=== PATIENT | male | born 1955 | race Caucasian/White ===

== ENCOUNTER 2017-07-21 15:36 | Emergency (ER) | payer OTHER ==
[~2017-07-21] VITALS: Ht 182.9 cm; Wt 95.3 kg
[~2017-07-21 15:36] MED LIST: ACC10 PO; AMLO-110 PO; DVN80 PO; FLX10 PO; GLC5 PO; GLC500 PO; METO100T44 PO; OXYC-57 PO; SIMV20TA5 OR; SITA100T3 PO
[2017-07-21 15:44] VITALS: TEMP 36.7; Ht 182.9 cm; Wt 95.3 kg
--- NOTE | 2017-07-21 16:09 | EMERGENCY ROOM VISIT NOTE ---
History Report prepared by Mellissa: Kay Hagen Under the Supervision of: Jw AminO. First contact with patient: 15:50 Chief Complaint: HEAD PAIN Stated Complaint: PAIN ON RT SIDE OF HEAD, LT EYE BLOOD SHOT History of Present Illness The patient is a 62 year old male who presents to the Emergency Room with complaints of intermittent head throbbing beginning 7 weeks ago. The patient states that he has no history of headaches but 7 weeks ago he woke up feeling pain in his neck behind his ear that radiates into his head. He complains of his left eye being intermittently blood shot. He notes that his head and neck pain is worsened occasionally by turning his head. The patient reports that he has a history of diabetes, hypertension, aortic aneurysm for 6 years, and leg stents. He notes that he has not seen a doctor for his pain. The patient denies any nausea, vomiting, chest pain, new shortness of breath, arm weakness, leg weakness, fever, and chills. Source of History: patient Onset: 7 weeks ago Position: head Quality: other (throbbing) Timing: intermittent Associated Symptoms: + neck pain, No fevers, No chills, No chest pain, No SOB, No nausea, No vomiting, No weakness Note: Pt complains of a bloodshot left eye. Review of Systems See HPI for pertinent positives & negatives. A total of 10 systems reviewed and were otherwise negative. Past Medical & Surgical Medical Problems: (1) Diabetes (2) HTN (hypertension) Family History No pertinent family history stated. Social History Smoking Status: Never Smoker Smokeless Tobacco Use: No Alcohol Use: none Marital Status: Housing Status: lives with family Current/Historical Medications Scheduled Amlodipine (Norvasc), 10 MG PO DAILY Aspirin (Aspirin Ec), 81 MG PO DAILY Atorvastatin (Lipitor), 40 MG PO DAILY Carvedilol (Coreg), 37.5 MG PO AMPM Cholecalciferol (Vitamin D), 4,000 UNITS PO DAILY Clopidogrel Bisulfate (Plavix), 75 MG PO DAILY Furosemide (Lasix), 20 MG PO BID Hydralazine HCl (Hydralazine HCl), 50 MG PO TID Insulin Glargine (Lantus Solostar), 34 UNITS SC Q12 Spironolactone (Aldactone), 12.5 MG PO DAILY Terazosin Hcl (Hytrin), 4 MG PO HS Scheduled PRN Oxycodone Immediate Rel Tab (Roxicodone Ir), 1-2 TAB PO Q4H PRN for Severe Pain Allergies Coded Allergies: No Known Allergies (Unverified , 07/21/17) Physical Exam Vital Signs Date Time Temp Pulse Resp B/P (MAP) Pulse Ox O2 Delivery O2 Flow Rate FiO2 07/21/17 19:19 70 16 173/96 98 Room Air 07/21/17 18:43 69 18 163/82 99 Room Air 07/21/17 18:01 72 20 182/81 99 Room Air 07/21/17 17:42 72 18 182/94 99 Room Air 07/21/17 17:10 94 20 134/91 98 Room Air 07/21/17 16:34 67 18 164/88 96 Room Air 07/21/17 16:15 96 Room Air 07/21/17 16:14 66 20 177/89 96 Room Air 07/21/17 16:10 96 Room Air 07/21/17 15:44 36.7 71 20 175/81 98 Room Air Physical Exam GENERAL: Patient is awake, alert, and in no acute distress. Patient is resting comfortably and showing no signs of anxiety EYES: There was a subconjunctival hemorrhage in the medial aspect of the left eye. EARS, NOSE, MOUTH AND THROAT: The nose is without any evidence of any deformity. Mucous membranes are moist tongue is midline NECK: The neck is nontender and supple. RESPIRATORY: Normal respiratory effort is noted there is no evidence of wheezing rhonchi or rales CARDIOVASCULAR: Regular rate and rhythm noted there no murmurs rubs or gallops normal S1 normal S2 GASTROINTESTINAL: The abdomen is soft. Bowel sounds are present in all quadrants. Abdomen is nontender MUSCULOSKELETAL/EXTREMITIES: There is no evidence of gross deformity full range of motion is noted in the hips and shoulders SKIN: There is no obvious evidence of any rash. There are no petechiae, pallor or cyanosis noted. NEUROLOGIC: Patient is awake alert and oriented x3 strength is symmetric patellar reflexes are 2+ bilaterally Medical Decision & Procedures ER Provider Diagnostic Interpretation: Radiology results as stated below per my review and radiologist interpretation: ANGIOGRAPHY HEAD COMBO FINDINGS: The CTA of the neck will be reported separately. No acute intracranial hemorrhage, midline shift or mass effect is present. Ventricular system is normal. Basilar cisterns are patent. There are no extra-axial collections. Pompa-white differentiation is maintained. There are no findings to suggest acute dural sinus thrombosis or acute territorial infarct. There are no significant calvarial abnormalities. Visualized portions of the sinuses and mastoid air cells are clear. Bilateral M1, M2, A1 and A2 segments are patent. There is moderate atherosclerotic plaque within the bilateral cavernous and supraclinoid internal carotid arteries. There is moderate stenosis of the left cavernous and supraclinoid ICA. There is mild stenosis of the right cavernous carotid. There is no intracranial aneurysm or abrupt vessel cut off. There is no dissection within the major vasculature of the head. There is moderate stenosis of the intracranial portions of the bilateral vertebral arteries. The basilar artery is patent. Left vertebral artery is dominant. Bilateral posterior cerebral arteries are patent. Note is made of anterior communicating artery and a right posterior communicating artery. IMPRESSION: 1. No acute intracranial findings. 2. No intracranial aneurysm or abrupt vessel cut off. 3. Moderate atherosclerotic plaque within the intracranial vessels with multifocal stenoses, as detailed above. Moderate stenoses of the intracranial portions of the bilateral vertebral arteries and the cavernous and supraclinoid portions of the left internal carotid artery. Electronically signed by: Jamil Reyes M.D. 07/21/2017 5:55 PM Dictated Date/Time: 07/21/2017 5:46 PM CHEST ONE VIEW PORTABLE FINDINGS: Lung volumes are normal. No consolidation is identified and there is no evidence of pulmonary edema. Linear left basilar opacity is suggestive of atelectasis. Borderline cardiomegaly is noted. No pneumothorax or pleural effusion is present. IMPRESSION: 1. No acute cardiopulmonary findings. 2. Borderline cardiomegaly without evidence of pulmonary edema. Electronically signed by: Jamil Reyes M.D. 07/21/2017 4:32 PM Dictated Date/Time: 07/21/2017 4:[address] ANGIOGRAPHY OF THE NECK WITH CONTRAST Findings: The origins of the bilateral common carotid arteries are patent. There is moderate plaque within the proximal bilateral internal carotid arteries without significant stenosis. There is no dissection within the major vasculature of the neck. The left vertebral artery is dominant and patent. There is moderate stenosis at the origin the right vertebral artery and mild to moderate stenosis at the origin of the left vertebral artery. There is no cervical lymphadenopathy. No cervical spine fractures identified. Epiglottis is normal. A few small thyroid nodules are noted. IMPRESSION: 1. No dissection within the neck. 2. Moderate plaque within the proximal bilateral internal carotid arteries without significant stenosis. 3. Moderate stenosis at the origin of the right vertebral artery and mild to moderate stenosis at the origin of the left vertebral artery. Electronically signed by: Jamil Reyes M.D. 07/21/2017 6:00 PM Dictated Date/Time: 07/21/2017 5:56 PM Laboratory Results 07/21/17 16:13 Red Blood Count 3.87, Mean Corpuscular Volume 85.3, Mean Corpuscular Hemoglobin 30.0, Mean Corpuscular Hemoglobin Concent 35.2, Mean Platelet Volume 9.5, Neutrophils (%) (Auto) 54.8, Lymphocytes (%) (Auto) 30.9, Monocytes (%) (Auto) 11.4, Eosinophils (%) (Auto) 2.1, Basophils (%) (Auto) 0.5, Neutrophils # (Auto ) 3.31, Lymphocytes # (Auto) 1.87, Monocytes # (Auto) 0.69, Eosinophils # (Auto ) 0.13, Basophils # (Auto) 0.03 07/21/17 16:13 Test 07/21/17 16:13 07/21/17 16:20 07/21/17 18:40 White Blood Count 6.05 K/uL (4.8-10.8) Red Blood Count 3.87 M/uL (4.7-6.1) Hemoglobin 11.6 g/dL (14.0-18.0) Hematocrit 33.0 % (42-52) Mean Corpuscular Volume 85.3 fL (80-100) Mean Corpuscular Hemoglobin 30.0 pg (25-34) Mean Corpuscular Hemoglobin Concent 35.2 g/dl (32-36) Platelet Count 192 K/uL (130-400) Mean Platelet Volume 9.5 fL (7.4-10.4) Neutrophils (%) (Auto) 54.8 % Lymphocytes (%) (Auto) 30.9 % Monocytes (%) (Auto) 11.4 % Eosinophils (%) (Auto) 2.1 % Basophils (%) (Auto) 0.5 % Neutrophils # (Auto) 3.31 K/uL (1.4-6.5) Lymphocytes # (Auto) 1.87 K/uL (1.2-3.4) Monocytes # (Auto) 0.69 K/uL (0.11-0.59) Eosinophils # (Auto) 0.13 K/uL (0-0.5) Basophils # (Auto) 0.03 K/uL (0-0.2) RDW Standard Deviation 41.7 fL (36.4-46.3) RDW Coefficient of Variation 13.6 % (11.5-14.5) Immature Granulocyte % (Auto) 0.3 % Immature Granulocyte # (Auto) 0.02 K/uL (0.00-0.02) Prothrombin Time 10.6 SECONDS (9.0-12.0) Prothromb Time International Ratio 1.0 (0.9-1.1) Activated Partial Thromboplast Time 24.7 SECONDS (21.0-31.0) Partial Thromboplastin Ratio 1.0 Est Creatinine Clear Calc Drug Dose 45.5 ml/min Estimated GFR () 39.2 Estimated GFR (Non- 33.8 BUN/Creatinine Ratio 14.5 (10-20) Calcium Level 8.8 mg/dl (8.5-10.1) Magnesium Level 2.0 mg/dl (1.8-2.4) Total Bilirubin 0.8 mg/dl (0.2-1) Direct Bilirubin 0.2 mg/dl (0-0.2) Aspartate Amino Transf (AST/SGOT) 18 U/L (15-37) Alanine Aminotransferase (ALT/SGPT) 39 U/L (12-78) Alkaline Phosphatase 136 U/L (45-117) Troponin I < 0.015 ng/ml (0-0.045) Total Protein 8.3 gm/dl (6.4-8.2) Albumin 3.9 gm/dl (3.4-5.0) Thyroid Stimulating Hormone (TSH) 1.460 uIu/ml (0.300-4.500) Bedside Hemoglobin 10.9 g/dl (14.0-18.0) Bedside Hematocrit 32 % (42-52) Bedside Sodium 139 mEq/L (135-144) Bedside Potassium 4.4 mEq/L (3.3-5.0) Bedside Chloride 105 mEq/L (101-112) Bedside Total CO2 23 mEq/l (24-31) Anion Gap 16.0 mmol/L (16-25) Bedside Blood Urea Nitrogen 29 mg/dl (7-18) Bedside Creatinine 2.3 mg/dl (0.6-1.3) Bedside Glucose (other) 157 mg/dl (70-99) Bedside Ionized Calcium (Andrés) 1.19 mmol/l (1.12-1.32) Urine Color YELLOW Urine Appearance CLEAR (CLEAR) Urine pH 6.5 (4.5-7.5) Urine Specific [place] 1.018 (1.000-1.030) Urine Protein NEG (NEG) Urine Glucose (UA) NEG (NEG) Urine Ketones NEG (NEG) Urine Occult Blood NEG (NEG) Urine Nitrite NEG (NEG) Urine Bilirubin NEG (NEG) Urine Urobilinogen NEG (NEG) Urine Leukocyte Esterase MODERATE (NEG) Urine WBC (Auto) 10-30 /hpf (0-5) Urine RBC (Auto) 0-4 /hpf (0-4) Urine Hyaline Casts (Auto) 0 /lpf (0-5) Urine Epithelial Cells (Auto) 10-20 /lpf (0-5) Urine Bacteria (Auto) NEG (NEG) Laboratory results per my review. Medications Administered Medications (Trade) Dose Ordered Sig/Domenic Route Start Time Stop Time Status Last Admin Dose Admin Sodium Chloride 500 ml @ 999 mls/hr Q31M STAT IV 07/21/17 17:06 07/21/17 17:36 DC 07/21/17 17:06 999 MLS/HR Diphenhydramine HCl (Benadryl Inj) 25 mg NOW STAT IV 07/21/17 17:44 07/21/17 17:45 DC 07/21/17 17:47 25 MG Methylprednisolone Sodium Succinate (Solu-Medrol IV) 125 mg STK-MED ONCE .ROUTE 07/21/17 17:56 07/21/17 17:57 DC 07/21/17 17:59 125 MG ECG Indication: SOB/dyspnea Rate (beats per minute): 67 Rhythm: normal sinus Findings: no ectopy, other (no acute ST segments) Comparison ECG Date: no prior available ED Course 1550: The patient was evaluated in room C3. A complete history and physical examination were performed. 1706: NSS 500 ml @ 999 mls/hr IV. 1744: Benadryl 50mg, Benadryl 25mg IV. 1756: Solu-Medrol 125mg. 1919: I reevaluated the patient. His intraocular pressure in the left eye was 18 and the right eye was 13. He has an appointment with his doctor tomorrow. 1929: Upon reevaluation, the patient is doing well. I discussed the results and treatment plan with him. He verbalized agreement of the treatment plan. The patient was discharged home. Medical Decision Differential diagnosis: Etiologies such as migraine headache, meningitis, sinusitis, CO exposure, ICH, SAH, infection, tumor, headache, sinus thrombosis, arterial dissection, as well as others were entertained. Nursing notes reviewed. The patient is a 62-year-old male who presented to the emergency department for an evaluation of headache. The patient has been noticing episodes of headache which is been intermittent but very frequent over the last few weeks. He has noticed some pain in his left eye as well as redness in his left eye. He was found have a subconjunctival hemorrhage on the left eye but no focal neurologic deficit fever or meningismus. I discussed the patient's laboratory and radiographic studies with him. His intraocular pressure was not significantly elevated in the affected eye. The CT angiography of the head and neck did not show any acute disease but showed some vascular disease which I discussed with the patient. The patient was treated with IV fluids and Benadryl and steroids in the emergency department. On subsequent reevaluation he was feeling somewhat improved. I discussed my thoughts with the patient which included that this could represent a cluster type headache. He was encouraged to rest and avoid any strenuous activity. He was also encouraged to continue all medications as prescribed and call his family doctor in the morning to schedule a follow-up appointment. Otherwise he was encouraged to return to the emergency department immediately if symptoms change worsen or the need arises. Medication Reconcilliation Current Medication List: was personally reviewed by me Blood Pressure Screening Patient's blood pressure: Elevated blood pressure Blood pressure disposition: Referred to PCP Impression Primary Impression: Headache Additional Impression: Non-traumatic subconjunctival hemorrhage of left eye Scribe Attestation The scribe's documentation has been prepared under my direction and personally reviewed by me in its entirety. I confirm that the note above accurately reflects all work, treatment, procedures, and medical decision making performed by me. Departure Information Dispostion Home / Self-Care Prescriptions Oxycodone Immediate Rel Tab (ROXICODONE IR) 5 Mg Tab 1-2 TAB PO Q4H Y for Severe Pain, #24 TAB Prov: Deric Tovar, DO 07/21/17 Referrals Chele Cullen M.D. (PCP) Forms HOME CARE DOCUMENTATION FORM, IMPORTANT VISIT INFORMATION, WORK / SCHOOL INSTRUCTIONS Patient Instructions ED Headache Cluster, My [facility], Subconjunctival Hemorrhage Additional Instructions Follow-up with your doctor this week as scheduled. Rest and avoid any strenuous activity. Continue all medications as discussed the possibility with your family DrKarlene to be require other studies or a referral to a neurologist for further evaluation. Return to the emergency department immediately if symptoms change worsen or need arises. Problem Qualifiers Primary Impression: Headache Headache type: unspecified Headache chronicity pattern: unspecified pattern Intractability: not intractable Qualified Codes: R51 - Headache
[2017-07-21 16:15] VITALS: O2SAT 96
[2017-07-21 16:32] LABS: ISTAT CREATININE 2.3 mg/dl (0.6-1.3); ISTAT HEMOGLOBIN 10.9 g/dl (14.0-18.0); ISTAT IONIZED CALCIUM 1.19 mmol/l (1.12-1.32)
[2017-07-21 16:33] LABS: BASO % 0.5 %; BASO ABS # 0.03 K/uL (0-0.2); COMPLETE YES; EOS % 2.1 %; IG% 0.3 %; LYMPH % 30.9 %; LYMPH ABS # 1.87 K/uL (1.2-3.4); MEAN CELL VOLUME 85.3 fL (80-100); MEAN CORPUSCULAR HGB CONC 35.2 g/dl (32-36); MEAN PLATELET VOLUME 9.5 fL (7.4-10.4); MONO % 11.4 %; NEUT % 54.8 %; PLATELET COUNT 192 K/uL (130-400); RED BLOOD COUNT 3.87 M/uL (4.7-6.1); WHITE BLOOD COUNT 6.05 K/uL (4.8-10.8)
--- NOTE | 2017-07-21 16:33 | DIAGNOSTIC IMAGING REPORT ---
CHEST ONE VIEW PORTABLE CLINICAL HISTORY: Altered mental status. Weakness. COMPARISON STUDY: No previous studies for comparison. FINDINGS: Lung volumes are normal. No consolidation is identified and there is no evidence of pulmonary edema. Linear left basilar opacity is suggestive of atelectasis. Borderline cardiomegaly is noted. No pneumothorax or pleural effusion is present. IMPRESSION: 1. No acute cardiopulmonary findings. 2. Borderline cardiomegaly without evidence of pulmonary edema. Electronically signed by: Jamil Reyes M.D. 07/21/2017 4:32 PM Dictated Date/Time: 07/21/2017 4:31 PM
[2017-07-21 16:46] LABS: PROTHROMBIN TIME (PATIENT) 10.6 SECONDS (9.0-12.0)
[2017-07-21 16:53] LABS: ALT/SGPT 39 U/L (12-78); AST/SGOT 18 U/L (15-37); BLOOD UREA NITROGEN 30 mg/dl (7-18); BUN/CREATININE RATIO 14.5 (10-20); CALCIUM 8.8 mg/dl (8.5-10.1); CARBON DIOXIDE 22 mmol/L (21-32); CHLORIDE 106 mmol/L (98-107); CREATININE 2.07 mg/dl (0.60-1.40); GLUCOSE 149 mg/dl (70-99); POTASSIUM 4.2 mmol/L (3.5-5.1); SODIUM 134 mmol/L (136-145)
[2017-07-21 17:04] LABS: ALKALINE PHOSPHATASE 136 U/L (45-117)
[2017-07-21] MEDS ORDERED: SPIR25TA PO (17:06)
[2017-07-21] MEDS ORDERED: APR50 PO (17:06)
[2017-07-21] MEDS ORDERED: ASPI81TA28 PO (17:06)
[2017-07-21] MEDS ORDERED: FRS/40 PO (17:06)
[2017-07-21] MEDS ORDERED: HYT/2 PO (17:06)
[2017-07-21] MEDS ORDERED: AMLO-114 PO (17:06)
[2017-07-21] MEDS ORDERED: CLOP1TAB54 PO (17:06)
[2017-07-21] MEDS ORDERED: SODIUM CHLORIDE 0.9% 500ML 500 ML IV STA (17:06)
[2017-07-21] MEDS ORDERED: CARV25TA2 PO (17:06)
[2017-07-21] MEDS ORDERED: INSDGIPEN SC (17:06)
[2017-07-21] MEDS ORDERED: ATOR-24 PO (17:06)
[2017-07-21] MEDS ORDERED: CHOL100010 PO (17:06)
[2017-07-21] MEDS ORDERED: DiphenhydrAMINE HCL 50 MG/ML VIAL IV STA (17:44)
[2017-07-21] MEDS ORDERED: DiphenhydrAMINE HCL 50 MG/ML VIAL ONE (17:44)
[2017-07-21] MEDS ORDERED: METHYLPREDNISOLONE 125 MG VIAL ONE (17:56)
--- NOTE | 2017-07-21 17:56 | DIAGNOSTIC IMAGING REPORT ---
ANGIOGRAPHY HEAD COMBO CLINICAL HISTORY: Right sided headache. COMPARISON STUDY: No previous studies for comparison. TECHNIQUE: Unenhanced and arterial phase imaging of the head was performed. Injection of 115 cc of Optiray 320 IV was uneventful. Coronal and sagittal reconstructions were viewed as well as maximal intensity projections on an independent 3-D workstation. FINDINGS: The CTA of the neck will be reported separately. No acute intracranial hemorrhage, midline shift or mass effect is present. Ventricular system is normal. Basilar cisterns are patent. There are no extra-axial collections. Pompa-white differentiation is maintained. There are no findings to suggest acute dural sinus thrombosis or acute territorial infarct. There are no significant calvarial abnormalities. Visualized portions of the sinuses and mastoid air cells are clear. Bilateral M1, M2, A1 and A2 segments are patent. There is moderate atherosclerotic plaque within the bilateral cavernous and supraclinoid internal carotid arteries. There is moderate stenosis of the left cavernous and supraclinoid ICA. There is mild stenosis of the right cavernous carotid. There is no intracranial aneurysm or abrupt vessel cut off. There is no dissection within the major vasculature of the head. There is moderate stenosis of the intracranial portions of the bilateral vertebral arteries. The basilar artery is patent. Left vertebral artery is dominant. Bilateral posterior cerebral arteries are patent. Note is made of anterior communicating artery and a right posterior communicating artery. IMPRESSION: 1. No acute intracranial findings. 2. No intracranial aneurysm or abrupt vessel cut off. 3. Moderate atherosclerotic plaque within the intracranial vessels with multifocal stenoses, as detailed above. Moderate stenoses of the intracranial portions of the bilateral vertebral arteries and the cavernous and supraclinoid portions of the left internal carotid artery. Electronically signed by: Jamil Reyes M.D. 07/21/2017 5:55 PM Dictated Date/Time: 07/21/2017 5:46 PM
--- NOTE | 2017-07-21 18:02 | DIAGNOSTIC IMAGING REPORT ---
CT ANGIOGRAPHY OF THE NECK WITH CONTRAST CLINICAL HISTORY: Right-sided neck pain. Headache. COMPARISON STUDY: No previous studies for comparison. Technique: CT angiography of the carotid and vertebral arteries was obtained using Fonality 320 IV and 3D reconstruction on an independent workstation. NASCET criteria was utilized. A dose lowering technique was utilized adhering to the principles of ALARA. CT DOSE: 1098.14 mGy.cm Findings: The origins of the bilateral common carotid arteries are patent. There is moderate plaque within the proximal bilateral internal carotid arteries without significant stenosis. There is no dissection within the major vasculature of the neck. The left vertebral artery is dominant and patent. There is moderate stenosis at the origin the right vertebral artery and mild to moderate stenosis at the origin of the left vertebral artery. There is no cervical lymphadenopathy. No cervical spine fractures identified. Epiglottis is normal. A few small thyroid nodules are noted. IMPRESSION: 1. No dissection within the neck. 2. Moderate plaque within the proximal bilateral internal carotid arteries without significant stenosis. 3. Moderate stenosis at the origin of the right vertebral artery and mild to moderate stenosis at the origin of the left vertebral artery. Electronically signed by: Jamil Reyes M.D. 07/21/2017 6:00 PM Dictated Date/Time: 07/21/2017 5:56 PM
[2017-07-21 19:08] LABS: URINE APPEARANCE CLEAR (CLEAR); URINE BILIRUBIN NEG (NEG); URINE COLOR YELLOW; URINE NITRITE NEG (NEG); URINE PH 6.5 (4.5-7.5); URINE SPECIFIC GRAVITY 1.018 (1.000-1.030); UROBILINOGEN NEG (NEG)
[2017-07-21 19:15] LABS: MANUAL MICROSCOPIC REQUIRED? NO; REVIEW REQ? NO
[2017-07-21 19:19] VITALS: BP 173/96; PULSE 70; O2SAT 98
[2017-07-21] MEDS ORDERED: OXYC1TAB3 PO (19:23)
== END 2017-07-21 19:30 | disposition home or self-care (01) ==
LOC: C.EDB 15:37 → C.EDC 19:30
DX: R51 Headache (principal); H11.32 Conjunctival hemorrhage, left eye; M54.2 Cervicalgia; E11.9 Type 2 diabetes mellitus without complications; I10 Essential (primary) hypertension; I71.9 Aortic aneurysm of unspecified site, without rupture; Z79.82 Long term (current) use of aspirin; Z79.02 Long term (current) use of antithrombotics/antiplatelets; Z79.4 Long term (current) use of insulin; Z95.828 Presence of other vascular implants and grafts

== ENCOUNTER 2017-08-14 05:14 | Inpatient (IN) | payer OTHER ==
[~2017-08-14] VITALS: Ht 182.9 cm; Wt 94.5 kg
[~2017-08-14 05:14] MED LIST changes: -ACC10 PO; -AMLO-110 PO; +AMLO-114 PO; +APR50 PO; +ASPI81TA28 PO; +ATOR-24 PO; +CARV25TA2 PO; +CHOL100010 PO; +CLOP1TAB54 PO; -DVN80 PO; -FLX10 PO; +FRS/40 PO; -GLC5 PO; -GLC500 PO; +HYT/2 PO; +INSDGIPEN SC; -METO100T44 PO; -OXYC-57 PO; +OXYC1TAB3 PO; -SIMV20TA5 OR; -SITA100T3 PO; +SPIR25TA PO
[2017-08-14] MEDS ORDERED: FENTANYL CITRATE INJ 50 MCG/1 ML 2 ML VIAL IV STA (05:17)
[2017-08-14] MEDS ORDERED: SODIUM CHLORIDE 0.9% 1000ML 1,000 ML IV STA ×2 (05:17→05:31)
[2017-08-14] MEDS ORDERED: METHYLPREDNISOLONE 125 MG VIAL IV STA (05:27)
[2017-08-14] MEDS ORDERED: DiphenhydrAMINE HCL 50 MG/ML VIAL IV STA (05:27)
[2017-08-14 05:28] LABS: HEMATOCRIT 33.7 % (42-52); HEMOGLOBIN 11.8 g/dL (14.0-18.0); MEAN CELL VOLUME 85.5 fL (80-100); MEAN CORPUSCULAR HEMOGLOBIN 29.9 pg (25-34); MEAN PLATELET VOLUME 9.6 fL (7.4-10.4); PLATELET COUNT 208 K/uL (130-400); RED CELL DISTRIBUTION WIDTH CV 13.5 % (11.5-14.5); RED CELL DISTRIBUTION WIDTH SD 42.5 fL (36.4-46.3); WHITE BLOOD COUNT 13.47 K/uL (4.8-10.8)
[2017-08-14] MEDS ORDERED: OPTIRAY 320 IV PRN (05:30)
--- NOTE | 2017-08-14 05:32 | EMERGENCY ROOM VISIT NOTE ---
History First contact with patient: 05:17 Chief Complaint: CHEST PAIN Stated Complaint: CHEST PAIN Nursing Triage Summary: Patient reports he woke up approx 0200 with severe chest pain, upper back pain, mainly on the right. Patient has aortic aneurysm that was last checked approx 1 yr ago, due to have it checked in October. Patient reports pain is getting worse. History of Present Illness The patient is a 62 year old male who presents to the Emergency Room for evaluation of right chest pain. Notes he has had URI last day or so and his having similar. Taking no meds for it and otherwise no recent complaints. This morning awoke suddenly with severe tearing right chest pain. Radiation to shoulder and RUQ. Associated with shob. He has never had pain like this before. Nothing makes better nor worse. Known thoracic aneurysm which he follows as outpatient for regularly. Denies neck pain, syncope, nausea, vomiting, nor other symptoms. Given IV Fentanyl [facility] with mild improvement. Denies recent change in mediations. Takes no pain medications on a regular basis. No recent trauma/injuries. Is on plavix/asa due to arterial stenting in legs. Review of Systems See HPI for pertinent positives & negatives. A total of 10 systems reviewed and were otherwise negative. Past Medical/Surgical History Medical Problems: (1) Diabetes (2) HTN (hypertension) Social History Smoking Status: Never Smoker Alcohol Use: none Marital Status: Housing Status: lives with family Current/Historical Medications Scheduled Amlodipine (Norvasc), 10 MG PO DAILY Aspirin (Aspirin Ec), 81 MG PO DAILY Atorvastatin (Lipitor), 40 MG PO DAILY Carvedilol (Coreg), 37.5 MG PO AMPM Cholecalciferol (Vitamin D), 4,000 UNITS PO DAILY Clopidogrel Bisulfate (Plavix), 75 MG PO DAILY Furosemide (Lasix), 20 MG PO BID Hydralazine HCl (Hydralazine HCl), 50 MG PO TID Insulin Glargine (Lantus Solostar), 34 UNITS SC Q12 Spironolactone (Aldactone), 12.5 MG PO DAILY Terazosin Hcl (Hytrin), 4 MG PO HS Physical Exam Vital Signs Date Time Temp Pulse Resp B/P (MAP) Pulse Ox O2 Delivery O2 Flow Rate FiO2 08/14/17 05:22 79 08/14/17 05:18 100 Room Air 08/14/17 05:18 100 Room Air 08/14/17 05:18 36.6 80 18 163/97 100 Room Air Physical Exam GENERAL: Patient is severe distress and very uncomfortable appearing HEENT: No acute trauma, normocephalic atraumatic, mucous membranes moist, no nasal congestion, no scleral icterus. NECK: No stridor, no adenopathy, no meningismus, trachea is midline. LUNGS: No dyspnea. Clear to auscultation and equal bilaterally. No wheeze, no rhonchi. HEART: Regular rate and rhythm. No murmurs, rubs, gallops appreciated. ABDOMEN: Soft, nontender, bowel sounds positive, no masses appreciated, no peritonitis. BACK: No midline tenderness, no CVA tenderness EXTREMITIES: Normal motion all extremities, no cyanosis, no edema. NEUROLOGIC: Alert and oriented, no acute motor or sensory deficits, no focal weakness, cranial nerves grossly intact. SKIN: No rash, no jaundice, no diaphoresis. Medical Decision & Procedures Laboratory Results 08/14/17 05:18 Red Blood Count 3.94, Mean Corpuscular Volume 85.5, Mean Corpuscular Hemoglobin 29.9, Mean Corpuscular Hemoglobin Concent 35.0, Mean Platelet Volume 9.6, Neutrophils (%) (Auto) 87.3, Lymphocytes (%) (Auto) 6.2, Monocytes (%) (Auto) 6.2, Eosinophils (%) (Auto) 0.0, Basophils (%) (Auto) 0.1, Neutrophils # (Auto) 11.76, Lymphocytes # (Auto) 0.83, Monocytes # (Auto) 0.84, Eosinophils # (Auto) 0.00, Basophils # (Auto) 0.01 08/14/17 05:18 Test 08/14/17 05:18 08/14/17 05:26 White Blood Count 13.47 K/uL (4.8-10.8) Red Blood Count 3.94 M/uL (4.7-6.1) Hemoglobin 11.8 g/dL (14.0-18.0) Hematocrit 33.7 % (42-52) Mean Corpuscular Volume 85.5 fL (80-100) Mean Corpuscular Hemoglobin 29.9 pg (25-34) Mean Corpuscular Hemoglobin Concent 35.0 g/dl (32-36) Platelet Count 208 K/uL (130-400) Mean Platelet Volume 9.6 fL (7.4-10.4) Neutrophils (%) (Auto) 87.3 % Lymphocytes (%) (Auto) 6.2 % Monocytes (%) (Auto) 6.2 % Eosinophils (%) (Auto) 0.0 % Basophils (%) (Auto) 0.1 % Neutrophils # (Auto) 11.76 K/uL (1.4-6.5) Lymphocytes # (Auto) 0.83 K/uL (1.2-3.4) Monocytes # (Auto) 0.84 K/uL (0.11-0.59) Eosinophils # (Auto) 0.00 K/uL (0-0.5) Basophils # (Auto) 0.01 K/uL (0-0.2) RDW Standard Deviation 42.5 fL (36.4-46.3) RDW Coefficient of Variation 13.5 % (11.5-14.5) Immature Granulocyte % (Auto) 0.2 % Immature Granulocyte # (Auto) 0.03 K/uL (0.00-0.02) Est Creatinine Clear Calc Drug Dose 34.8 ml/min Estimated GFR () 31.5 Estimated GFR (Non- 27.2 BUN/Creatinine Ratio 15.2 (10-20) Calcium Level 9.2 mg/dl (8.5-10.1) Total Bilirubin 1.6 mg/dl (0.2-1) Direct Bilirubin 0.3 mg/dl (0-0.2) Aspartate Amino Transf (AST/SGOT) 12 U/L (15-37) Alanine Aminotransferase (ALT/SGPT) 33 U/L (12-78) Alkaline Phosphatase 160 U/L (45-117) Troponin I < 0.015 ng/ml (0-0.045) Total Protein 8.8 gm/dl (6.4-8.2) Albumin 3.9 gm/dl (3.4-5.0) Lipase 363 U/L (73-393) Bedside Hemoglobin 11.6 g/dl (14.0-18.0) Bedside Hematocrit 34 % (42-52) Bedside Sodium 135 mEq/L (135-144) Bedside Potassium 4.5 mEq/L (3.3-5.0) Bedside Chloride 101 mEq/L (101-112) Bedside Total CO2 20 mEq/l (24-31) Anion Gap 19.0 mmol/L (16-25) Bedside Blood Urea Nitrogen 35 mg/dl (7-18) Bedside Creatinine 2.3 mg/dl (0.6-1.3) Bedside Glucose (other) 290 mg/dl (70-99) Bedside Ionized Calcium (Andrés) 1.23 mmol/l (1.12-1.32) Medications Administered Medications (Trade) Dose Ordered Sig/Domenic Route Start Time Stop Time Status Last Admin Dose Admin Fentanyl Citrate (Fentanyl Inj) 100 mcg NOW STAT IV 08/14/17 05:17 08/14/17 05:19 DC 08/14/17 05:24 100 MCG Sodium Chloride 1,000 ml @ 75 mls/hr [id number] STAT IV 08/14/17 05:17 08/14/17 18:36 08/14/17 05:24 75 MLS/HR Methylprednisolone Sodium Succinate (Solu-Medrol IV) 125 mg NOW STAT IV 08/14/17 05:27 08/14/17 05:28 DC 08/14/17 05:49 125 MG Diphenhydramine HCl (Benadryl Inj) 50 mg NOW STAT IV 08/14/17 05:27 08/14/17 05:28 DC 08/14/17 05:49 50 MG Sodium Chloride 1,000 ml @ 999 mls/hr Q1H1M STAT IV 08/14/17 05:31 08/14/17 06:31 08/14/17 05:31 999 MLS/HR Hydromorphone HCl (Dilaudid Inj) 1 mg NOW STAT IV 08/14/17 05:58 08/14/17 05:59 DC 08/14/17 05:58 1 MG Medical Decision Differential: Aortic Dissection, ACS, Pneumothorax, Cholecystitis, Gallbladder disfunction, Hepatic Disfunction, Gastritis/PUD, Pancreatitis, amongst other pathologies entertained. 62 yr old male with known thoracic aneurysm arrives with tearing right chest pain sudden onset radiating to shoulder and RUQ. He is in severe distress requiring multiple rounds narcotics. Moderately HTN. Known renal insufficiency with Cr 2+ but as he is clearly unwell, it is too dangerous not to do CTA chest. NSS bolus to help with renal clearance. WBC mildly elevated as is Bili. May be that he is having GB or biliary disfunction that is causing referred pain, but odd no RUQ pain. Possibly right renal issues but again no quite where his pain is. While awaitin CTA chest will go ahead with US order. Patient's pain was gradually improved with multiple rounds IV narcotics. Discussed case at length with him. Signed out to Dr Laura awaiting imaging results. Medication Reconcilliation Current Medication List: was personally reviewed by me Blood Pressure Screening Patient's blood pressure: Elevated blood pressure Impression Primary Impression: Right-sided chest pain Departure Information Referrals Chele Cullen M.D. (PCP) Patient Instructions My [facility]
[2017-08-14 05:38] LABS: ISTAT CREATININE 2.3 mg/dl (0.6-1.3); ISTAT IONIZED CALCIUM 1.23 mmol/l (1.12-1.32); ISTAT POTASSIUM 4.5 mEq/L (3.3-5.0)
[2017-08-14 05:45] LABS: ALBUMIN 3.9 gm/dl (3.4-5.0); ALT/SGPT 33 U/L (12-78); AST/SGOT 12 U/L (15-37); BLOOD UREA NITROGEN 38 mg/dl (7-18); CALCIUM 9.2 mg/dl (8.5-10.1); CARBON DIOXIDE 22 mmol/L (21-32); CREATININE 2.48 mg/dl (0.60-1.40); GLUCOSE 287 mg/dl (70-99); LIPASE 363 U/L (73-393); POTASSIUM 4.4 mmol/L (3.5-5.1); SODIUM 130 mmol/L (136-145)
[2017-08-14 05:49] LABS: ALKALINE PHOSPHATASE 160 U/L (45-117); TOTAL PROTEIN 8.8 gm/dl (6.4-8.2)
[2017-08-14] MEDS ORDERED: HYDROmorphone INJ 1 MG/ML SYR IV STA ×3 (05:58→14:36)
[2017-08-14 06:05] LABS: BASO % 0.1 %; BASO ABS # 0.01 K/uL (0-0.2); IG# 0.03 K/uL (0.00-0.02); LYMPH % 6.2 %; LYMPH ABS # 0.83 K/uL (1.2-3.4); MONO % 6.2 %; MONO ABS # 0.84 K/uL (0.11-0.59); NEUT % 87.3 %; NEUT ABS # 11.76 K/uL (1.4-6.5)
--- NOTE | 2017-08-14 06:34 | DIAGNOSTIC IMAGING REPORT ---
CHEST ONE VIEW PORTABLE HISTORY: 62 years-old Male Chest Pain acute atypical chest pain COMPARISON: Chest radiograph 07/21/2017, CTA chest 08/14/2017 TECHNIQUE: Portable AP view of the chest FINDINGS: Cardiac silhouette is within normal limits. No pneumothorax, pleural effusion, focal airspace consolidation or overt pulmonary edema. Bones of the chest appear grossly intact. Degenerative changes are seen within the shoulders and spine. IMPRESSION: No acute process. The above report was generated using voice recognition software. It may contain grammatical, syntax or spelling errors. Electronically signed by: Jourdan Zamora M.D. 08/14/2017 6:33 AM Dictated Date/Time: 08/14/2017 6:32 AM
--- NOTE | 2017-08-14 07:02 | DIAGNOSTIC IMAGING REPORT ---
CHEST COMBO ANGIOGRAPHY CLINICAL HISTORY: Aneurysm history Chest pain TECHNIQUE: Transaxial acquisition with multi axial reformatted images COMPARISON STUDY: None FINDINGS: Mild dilatation a sending aorta at 3.9 cm. No evidence for dissection. Mild atherosclerotic change of the remainder of the thoracic aorta with no evidence for dissection or aneurysm of the descending thoracic aorta. No significant mediastinal or hilar adenopathy. Lungs are considered clear. There are no focal infiltrative changes. Study is negative for pneumothorax. Minimal dependent basilar atelectatic change. Moderate degenerative disc change at the entire thoracic region. No major filling defect of the pulmonary arterial vasculature. IMPRESSION: 1. Mild aneurysmal dilatation ascending thoracic aorta at 3.9 cm. 2. No evidence for dissection. 3. No evidence for focal infiltrate or pneumothorax. 4. Moderate degenerative disc change of the thoracic spine. The above report was generated using voice recognition software. It may contain grammatical, syntax or spelling errors. Electronically signed by: Chele Ojeda M.D. 08/14/2017 7:00 AM Dictated Date/Time: 08/14/2017 6:51 AM
--- NOTE | 2017-08-14 07:18 | DIAGNOSTIC IMAGING REPORT ---
GALLBLADDER-ABD LIMITED CLINICAL HISTORY: 62 years-old Male presenting with rt CP, elevated bili, eval GB (and rt kidney if possible). TECHNIQUE: Real-time grayscale and limited color Doppler ultrasound imaging of the abdomen limited to the right upper quadrant was performed. COMPARISON: CT from 08/21/2011. FINDINGS: Pancreas: Visualized portions of the pancreatic head and body normal. Liver: Mildly hyperechogenic parenchyma, although the right hemidiaphragm remains visible, likely indicating mild steatosis. The liver measures 18.3 cm in maximal sagittal dimension. No sonographic evidence of hepatic mass. Main portal vein patent with normal directional flow. Biliary: No intrahepatic biliary ductal dilatation. Common bile duct measures up to 4 mm in diameter. Gallbladder: No evidence of gallstones, gallbladder wall thickening, gallbladder distention, or pericholecystic fluid or inflammatory change. Sonographic Hernandez's sign negative. Right kidney: 5 cm cyst noted, which may contain few thin septations (minimally complex cyst, Bosniak 2). No hydronephrosis. Ascites: None. IMPRESSION: 1. Suggestion of hepatic steatosis. Correlate with liver function tests to exclude steatohepatitis. 2. No cholelithiasis or biliary ductal dilatation. 3. Minimally complex right renal cyst (Bosniak 2). Electronically signed by: Wyatt Valladares M.D. 08/14/2017 7:16 AM Dictated Date/Time: 08/14/2017 7:14 AM
--- NOTE | 2017-08-14 08:00 | DIAGNOSTIC IMAGING REPORT ---
ABD/PELVIS NO IV OR ORAL CONT CLINICAL HISTORY: 62 years-old Male presenting with r flank pain . TECHNIQUE: Multidetector CT of the abdomen and pelvis was performed without the use of intravenous contrast. IV contrast: None. A dose lowering technique was used consistent with the principles of ALARA (as low as reasonably achievable). COMPARISON: 08/21/2011. CT DOSE (mGy.cm): The estimated cumulative dose is 1127.80 mGy.cm. FINDINGS: Forming Tube Selector topogram: Unremarkable. Lung bases: Minimal basilar opacities, likely atelectasis. Coronary artery calcification. Top normal heart size. No pericardial or pleural effusion. Liver: Normal morphology. Normal density. Biliary: No gross biliary ductal dilatation allowing for noncontrast technique. Gallbladder decompressed. Pancreas: Mild parenchymal atrophy. Spleen: Normal noncontrast appearance. Adrenal glands: Extensive nodular thickening of the medial and lateral limbs of the left adrenal gland with a focal 1.8 cm nodule medially and 1.3 cm nodule laterally. Densities are consistent with benign adenomas. These have increased in size since the prior exam. Mild thickening of the right adrenal gland, nonspecific. Kidneys and ureters: Well-defined hypodensities in the kidneys are incompletely evaluated in the absence of intravenous contrast but are grossly stable in appearance. No hydronephrosis. Prior contrast excreted into the bilateral renal collecting systems limiting evaluation for nephrolithiasis. No gross filling defect within the renal collecting systems. Ureters normal. Bladder: Normal. Pelvic organs: Prostate enlargement likely secondary to benign prostatic hyperplasia. Bowel: Normal appendix. No bowel obstruction. Peritoneal cavity: No free fluid or intraperitoneal gas. Lymph nodes: No gross lymphadenopathy allowing for noncontrast technique. Few prominent subcentimeter lymph nodes in the pericaval and portacaval regions, possibly reactive. Vasculature: Atherosclerosis of the normal caliber abdominal aorta. Abdominal wall: Normal. Musculoskeletal: Degenerative changes of the spine. IMPRESSION: 1. Evaluation for nephrolithiasis is limited given the excretion of contrast within the renal collecting systems from prior contrast load. No evidence of obstruction or gross evidence of filling defect within the urinary collecting systems. 2. No acute intra-abdominal pathology allowing for noncontrast technique. 3. Benign left adrenal adenomas. 4. Prostatomegaly. Electronically signed by: Wyatt Valladares M.D. 08/14/2017 7:59 AM Dictated Date/Time: 08/14/2017 7:51 AM
[2017-08-14] MEDS ORDERED: HYDROmorphone INJ 1 MG/ML SYR IV PRN (09:45)
[2017-08-14] MEDS ORDERED: ALUMINUM/MAGNESIUM/SIMETH (MAALOX MAX) 30 ML UDC PO PRN (09:45)
[2017-08-14] MEDS ORDERED: NITROGLYCERIN 0.4 MG SL PER TAB CHARGE SL PRN (09:45)
[2017-08-14 10:22] LABS: HEMOGLOBIN A1C 6.9 % (4.5-5.6)
--- NOTE | 2017-08-14 11:04 | HISTORY & PHYSICAL EXAMINATION ---
DATE OF ADMISSION: 08/14/2017 CHIEF COMPLAINT: Chest pain, abdominal pain. HISTORY OF PRESENT ILLNESS: This 62-year-old male with past medical history significant for hypertension, diabetes, thoracic aortic aneurysm, dyspnea on exertion, family history of heart disease, eczema, chronic kidney disease stage III, recurrent UTI, peripheral arterial disease presents with chest pain and abdominal pain. The patient yesterday in the evening felt chilly, late in the night he developed severe chest pain, right flank pain and back pain which was getting worse. He came to the ER and in the ER he required several doses of IV Dilaudid to bring his pain under control. He was worried that he was having the thoracic aortic aneurysm rupture. CTA of the chest was done which was okay. There was no evidence of dissection. No pneumothorax or focal infiltrate. CT of the abdomen and pelvis was done which was also unremarkable. Gallbladder ultrasound was also done which was also unremarkable except for minimally complex renal cyst and hepatic steatosis. The patient currently hemodynamically stable. He states still has some pain more in the right flank region. Denies any headaches, no dizziness. No runny nose, no sore throat, no difficulty swallowing, no cough. He has chronic on and off shortness of breath. Appetite is okay. Normal bowel and bladder movements. No blood in the stool, no blood in the urine. No rash. No swelling in the lower extremities. ALLERGIES: No known drug allergies. PAST MEDICAL HISTORY: As mentioned above. PAST SURGICAL HISTORY: Coronary angiogram with left heart catheterization, femoral artery revascularization and stent placement and angioplasty, ____, repair of ruptured rotator cuff on the right side. MEDICATIONS: The patient is on Coreg 27.5 mg p.o. b.i.d., Aldactone 12.5 mg p.o. daily, Lasix 20 mg p.o. b.i.d., hydralazine 50 mg p.o. t.i.d., Plavix 75 mg p.o. daily, terazosin 4 mg p.o. at bedtime, Lantus 34 units b.i.d., amlodipine 10 mg p.o. daily, aspirin 81 mg p.o. daily, vitamin D 4000 units p.o. daily, atorvastatin 40 mg p.o. daily. FAMILY HISTORY: Significant for father had acute VT and hypertension. Father with diabetes. SOCIAL HISTORY: Never smoked. No alcohol use. Single. No drug use. REVIEW OF SYMPTOMS: As per HPI. Rest of review of symptoms negative. PHYSICAL EXAMINATION: GENERAL: The patient is of moderate build, not in distress. VITAL SIGNS: Temperature 36.6, pulse 75, respiratory rate 18, blood pressure 153/90 and oxygen 95% on room air. HEAD, EYES, EARS, NOSE, AND THROAT: No pallor, no icterus. Pupils equal, round, and reactive to light. NECK: No JVD, no neck masses, no carotid bruits. CARDIOVASCULAR: S1, S2 heard, regular rate and rhythm, no murmur, no gallop. RESPIRATORY SYSTEM: Clear to auscultation bilaterally. No wheezing, no crackles. ABDOMEN: Soft, bowel sounds present. Mild diffuse discomfort. No guarding, no rigidity. No distention. NERVOUS SYSTEM: No CVA tenderness. CENTRAL NERVOUS SYSTEM: Cranial nerves II-XII grossly nonfocal. EXTREMITIES: No edema, no erythema. LABORATORY DATA: WBC 13.4, hemoglobin 11.8, hematocrit 33.7, platelets 208. Sodium 130, potassium 4.5, chloride 101, bicarbonate 22, BUN 38, creatinine 2.4, random glucose 287, calcium 9.2, total bilirubin 1.6, direct bilirubin 0.3, AST 12, ALT 33, alkaline phosphatase 160, troponin I less than 0.015. Lipase 363. EKG shows normal sinus rhythm with a rate of ____, no significant change from previous EKG. No acute ST changes seen. CTA of the chest bilateral residual dilatation ascending thoracic aorta 3.9 cm. No evidence for dissection. No evidence of focal infiltrate or pneumothorax. Moderate degenerative changes of the thoracic spine. Chest x-ray: No acute process. Gallbladder ultrasound suggests hepatic steatosis, no cholelithiasis or biliary duct dilatation, minimal complex right renal cyst. CT of the abdomen and pelvis without contrast, no acute intracranial abdominal pathology, benign left adrenal mass, ____, no evidence of renal obstruction. ASSESSMENT AND PLAN: This is a 62-year-old male who presents with severe chest pain and abdominal pain. 1. Severe chest pain and abdominal pain, more on the right flank. Imaging studies were unremarkable at this time. Stable thoracic aneurysm. Will admit observation on tele floor. Serial cardiac enzymes, repeat EKG and echocardiogram, consult cardiology for further recommendations. 2. Abdominal pain ____ . CT of the abdomen and pelvis unremarkable. Labs are okay. Gallbladder ultrasound is okay. We will monitor pain control and patient's pain is more moving around, could be muscle pull. If nothing show up will consult pain management. 3. History of diabetes. Continue Lantus and placed on insulin sliding scale. Follow HBA1c levels. 4. History of hypertension. Continue home medication of Coreg, amlodipine, hydralazine, terazosin. Holding the Lasix for now. We will monitor the blood pressure in the hospital. 5. History of chronic kidney disease stage III, baseline creatinine around 2.2 to 2.3, creatinine of 2.4. We will follow the labs on fluids, holding Lasix. We will also hold Aldactone. 6. Peripheral vascular disease status post femoral popliteal bypass surgery on aspirin and Plavix. Will continue. Also on statin. 7. History of recurrent urinary tract infection. Will check urinalysis. 8. History of thoracic aortic aneurysm. CT of the chest shows ____ appendix and thoracic aortic aneurysm. Needs followup. 9. Deep venous thrombosis prophylaxis. SCDs for now. 10. Disposition. Observation on tele floor. Expect to discharge home and follow with his family doctor. LEVEL 1 FULL CODE.
[2017-08-14 11:20] VITALS: BP 176/80; PULSE 74; TEMP 36.7; O2SAT 97; BMI 27.5
--- NOTE | 2017-08-14 11:50 | ECHOCARDIOGRAM REPORT ---
*NOTICE TO RECEIVING LIBERTARIAN AGENCY This information is strictly Confidential and protected under [place] law. [place] law prohibits you from making any further disclosure of this information unless further disclosure is expressly permitted by the written consent of the person to whom it pertains or is authorized by law. A general authorization for the release of medical or other information is not sufficient for this purpose. Hospital accepts no responsibility if the information is made available to any other person, INCLUDING THE PATIENT. Interpretation Summary * Name: PATRICIA CALVILLO Study Date: 08/14/2017 10:19 AM BP: 165/80 mmHg * Patient Location: .ED HR: 68 * : 1955 (M/d/yyyy) Gender: Male Height: 72 in * Age: 62 yrs Ethnicity: [place] Weight: 202 lb * Ordering Physician: Lamberto Carey * Referring Physician: Self, Referred * Performed By: Shante Austin RDCS * * Reason For Study: Chest Pain * BSA: 2.1 m2 * -- Conclusions -- * There is mild concentric left ventricular hypertrophy. * No regional wall motion abnormalities noted. * Left ventricular systolic function is normal. * The LV Ejection Fraction = 60-65%. * There is trace mitral regurgitation. * The aortic root is normal size. * The proximal ascending aorta is mildly dilated with maximum diameter of 4.2 cm. Procedure Details * A complete two-dimensional transthoracic echocardiogram was performed (2D, M-mode, Doppler and color flow Doppler). Left Ventricle * The left ventricle is normal in size. * There is mild concentric left ventricular hypertrophy. * Left ventricular systolic function is normal. * Ejection Fraction = 60-65%. * The left ventricular wall motion is normal. * No regional wall motion abnormalities noted. Right Ventricle * The right ventricle is normal size. * The right ventricular systolic function is normal as assessed by tricuspid annular plane systolic excursion (TAPSE) (normal >1.5 cm). Atria * The left atrial size is normal. * Right atrial size is normal. * There is no evidence of atrial septal defect, but resolution does not allow assessment for a patent foramen ovale. Mitral Valve * The mitral valve is normal. * There is no mitral valve stenosis. * There is trace mitral regurgitation. Tricuspid Valve * The tricuspid valve is normal. * There is no tricuspid stenosis. * Significant tricuspid regurgitation is absent. Aortic Valve * The aortic valve is trileaflet. * Aortic stenosis is absent. * There is no significant aortic regurgitation. Pulmonic Valve * The pulmonary valve is not well seen, but the Doppler examination is normal without significant regurgitation or stenosis. Great Vessels * The aortic root is normal size. * The proximal ascending aorta is mildly dilated with maximum diameter of 4.2 cm. Pericardium/Pleural * There is no pericardial effusion. Great Vessels * Normal inferior vena cava diameter and respiratory variation suggests normal central venous pressure. Left Ventricular Diastolic Function * Grade I diastolic dysfunction, (abnormal relaxation pattern). MMode 2D Measurements and Calculations IVSd 1.1 cm IVSs 1.3 cm LVIDd 5.6 cm LVIDs 3.8 cm LVPWd 1.3 cm LVPWs 1.8 cm IVS/LVPW 0.81 FS 30.9 % EDV(Teich) 150.8 ml ESV(Teich) 63.4 ml EF(Teich) 58.0 % EDV(cubed) 171.3 ml ESV(cubed) 56.4 ml EF(cubed) 67.1 % % IVS thick 23.7 % % LVPW thick 34.4 % LV mass(C)d 273.5 grams LV mass(C)dI 127.8 grams/m\S\2 LV mass(C)s 229.4 grams LV mass(C)sI 107.2 grams/m\S\2 SV(Teich) 87.4 ml SI(Teich) 40.9 ml/m\S\2 SV(cubed) 114.9 ml SI(cubed) 53.7 ml/m\S\2 Ao root diam 3.5 cm Ao root area 9.7 cm\S\2 ACS 2.3 cm LA dimension 4.1 cm asc Aorta Diam 4.2 cm LA/Ao 1.2 LVAd ap4 39.3 cm\S\2 LVLd ap4 8.9 cm EDV(MOD-sp4) 154.6 ml EDV(sp4-el) 147.6 ml LVAs ap4 22.5 cm\S\2 LVLs ap4 7.2 cm ESV(MOD-sp4) 64.5 ml ESV(sp4-el) 59.6 ml EF(MOD-sp4) 58.3 % EF(sp4-el) 59.6 % LVAd ap2 36.1 cm\S\2 LVLd ap2 9.0 cm EDV(MOD-sp2) 129.3 ml EDV(sp2-el) 122.4 ml LVAs ap2 20.7 cm\S\2 LVLs ap2 7.2 cm ESV(MOD-sp2) 51.9 ml ESV(sp2-el) 50.5 ml EF(MOD-sp2) 59.9 % EF(sp2-el) 58.8 % LVLd %diff 1.7 % EDV(MOD-bp) 143.3 ml LVLs %diff -0.32 % ESV(MOD-bp) 57.6 ml EF(MOD-bp) 59.8 % SV(MOD-sp4) 90.2 ml SI(MOD-sp4) 42.1 ml/m\S\2 SV(MOD-sp2) 77.4 ml SI(MOD-sp2) 36.2 ml/m\S\2 SV(MOD-bp) 85.7 ml SI(MOD-bp) 40.0 ml/m\S\2 SV(sp4-el) 88.0 ml SI(sp4-el) 41.1 ml/m\S\2 SV(sp2-el) 72.0 ml SI(sp2-el) 33.6 ml/m\S\2 Doppler Measurements and Calculations MV E max keegan 99.9 cm/sec MV A max keegan 85.4 cm/sec MV E/A 1.2 MV dec time 0.26 sec Ao V2 max 139.0 cm/sec Ao max PG 7.7 mmHg Ao max PG (full) 3.9 mmHg LV V1 max PG 3.8 mmHg LV V1 max 98.0 cm/sec PA V2 max 93.1 cm/sec PA max PG 3.5 mmHg
[2017-08-14 12:00] VITALS: O2SAT 97
[2017-08-14] MEDS ORDERED: DEXTROSE 50% 50 ML SYR IV PRN (12:00)
[2017-08-14] MEDS ORDERED: GLUCOSE 40% GEL 15 GM TUBE PO PRN (12:00)
[2017-08-14] MEDS ORDERED: GLUCAGON FOR INJ 1 MG VIAL SQ PRN (12:00)
[2017-08-14] MEDS ORDERED: GLUCOSE 10 TABS/TUBE PO PRN (12:00)
[2017-08-14 12:26] LABS: CKMB 0.7 ng/ml (0.5-3.6)
[2017-08-14] MEDS: SODIUM CHLORIDE 0.9% 1000ML 1,000 ML IV SCH ×2 (12:28→23:42)
[2017-08-14] MEDS ORDERED: IV FLUIDS COMPLETED PRN (12:45)
[2017-08-14] MEDS: INSULIN ASPART 100 UNITS/ML 3 ML PEN SC SCH ×2 (12:50→17:21)
--- NOTE | 2017-08-14 13:05 | Cardiology Consultation ---
Cardiology Consultation Date of Consultation: Aug 14, 2017 History of Present Illness Miguel Kunz is a 62 year old male seen in cardiology consultation per the request of Dr Carey for the evaluation of chest discomfort. The patient is well-known to our cardiology practice having most recently been seen by Tani curran to PAC of our practice in March 2017. I had action was and the patient in consultation dating back to 2013. The patient presented to [facility] in the internal control analyst hours this morning via EMS. He describes having had what he describes as cold symptoms for 2 days consisting of runny nose, head congestion and cough. Last evening he was driving to his job and felt the onset of chills and subjective fever. He called off of for What home and went to bed. At approximately 12:30 AM he started experiencing acute onset of right-sided flank pain and right sided low back pain as well as midline chest discomfort. The discomfort has been persistent all night as a scale of 8 out of 10. His discomfort was partially palliated with the administration of Dilaudid and fentanyl earlier this morning in the emergency room, but has returned upon arrival to the PCU. During my assessment of the patient in room 2 421 the PCU, he was comfortable if he was laying precisely still with any kind of movement his right sided flank pain, back pain were reproduced. Stat EKG was performed at the bedside per my request at 11:52 AM revealed normal sinus rhythm at 69 bpm with 1 PVC and no significant ST changes. Previous EKG performed proximal to 6 hours beforehand in the emergency room was grossly normal with mild baseline artifact but no definite ST segment changes. A single troponin was performed at 5:18 AM this morning and was negative. A stat repeat has been requested and is just been sent to the lab. History Past Medical History: 1. Nonobstructive coronary artery disease documented by cardiac [place] [facility] [place] [facility] diffuse moderate irregularities with a long 40% lesion in the proximal LAD, mild disease in the mid LAD, and the distal LAD was noted to be free of disease. The left circumflex was noted to be a nondominant vessel with 30% lesion noted at the first obtuse marginal. The right coronary artery was noted to be dominant, with 30% proximal RCA stenosis and mild the distal portions the right coronary artery is noted to be free of disease 2. Peripheral arterial disease status post placement of a left popliteal stent and placement of left superficial femoral artery stent [place] [facility] Subsequently underwent drug-coated balloon angioplasty of the right superficial femoral artery in 2015. Subsequent stenting of the left superficial femoral artery in 2015. Stenting to the right superficial femoral artery and angioplasty of the right popliteal artery in January 2017 for restenosis of the prior angioplasty. 3. History of ascending thoracic aortic aneurysm with mild dilatation of the aortic root and proximal ascending aorta in the range of 4??1-4??2 cm on most recent echocardiogram prior to say which had been performed on 10/20/69 4. Dyslipidemia 5. Difficult to control hypertension 6. Stage III chronic kidney disease and creatinine in the low 2 mg/dL range, GFR at baseline 30 mg/m/m Past Surgical History: Left knee anterior cruciate ligament repair Right rotator cuff repair Colonoscopy with polypectomy December 2013 Social History: Nonsmoker, history of past moderate alcohol consumption, but he has abstained for the last few years Family History: Positive for ischemic heart disease with father having had myocardial infarction Review Of Systems See above for pertinent positives & negatives. A total of 10 systems reviewed and were otherwise negative. Allergies Coded Allergies: Iodinated Diagnostic Agents (Verified Allergy, Unknown, shaking, severe anxiety, 08/14/17) Medications Reported Home Medications Medications Dose Route/Sig Max Daily Dose Days Date Category Dose Instructions Aspirin Ec (Aspirin) 81 Mg Tab 81 Mg PO DAILY 07/21/17 Reported Norvasc (Amlodipine Besylate) 10 Mg Tab 10 Mg PO DAILY 07/21/17 Reported Lantus Solostar (Insulin Glargine) 100 Unit/Ml Inj 34 Units SC Q12 07/21/17 Reported Hytrin (Terazosin HCl) 2 Mg Cap 4 Mg PO HS 07/21/17 Reported TWO 2 MG CAPSULES Lipitor (Atorvastatin Calcium) 40 Mg Tab 40 Mg PO DAILY 07/21/17 Reported Plavix (Clopidogrel Bisulfate) 75 Mg Tab 75 Mg PO DAILY 07/21/17 Reported Hydralazine HCl 50 Mg Tab 50 Mg PO TID 07/21/17 Reported Vitamin D (Cholecalciferol) 1,000 Unit Tab 4,000 Units PO DAILY 07/21/17 Reported FOUR 1,000 UNIT TABS Lasix (Furosemide) 40 Mg Tab 20 Mg PO BID 07/21/17 Reported 1/2 OF A 40 MG TABLET TWICE DAILY Aldactone (Spironolactone) 25 Mg Tab 12.5 Mg PO DAILY 07/21/17 Reported Coreg (Carvedilol) 25 Mg Tab 37.5 Mg PO AMPM 07/21/17 Reported WITH MORNING AND EVENING MEALS Physical Exam Vital Signs (Last 8hrs): Last 8 Hrs Date Time Temp Pulse Resp B/P (MAP) Pulse Ox O2 Delivery O2 Flow Rate FiO2 08/14/17 11:20 36.7 74 20 176/80 (112) 97 Room Air 08/14/17 10:36 73 18 146/88 95 Room Air 08/14/17 09:32 68 18 165/80 95 Room Air 08/14/17 08:23 75 08/14/17 07:21 81 18 153/90 95 Room Air 08/14/17 05:22 79 08/14/17 05:18 100 Room Air 08/14/17 05:18 100 Room Air 08/14/17 05:18 36.6 80 18 163/97 100 Room Air General Appearance: Alert and Oriented x3. NAD. Head: Normocephalic Atraumatic. Eyes: PERRLA, EOMI, conjunctiva and sclera clear Neck: Supple. No carotid bruits noted. No JVD. No HJD. Respiratory: Breath sounds clear to auscultation bilaterally. No w/r/r. Cardiovascular: Reg rate and rhythm. S1 and S2 noted. No murmurs, rubs, gallops. PMI non displace. Abdomen: Normal bowel sounds, soft nontender. no abdominal bruits. Extremities: No edema, no clubbing or cyanosis. distal pulses 2/4 bilaterally. Neuro: No focal deficits. Psychiatric: Normal affect. Data Last Resulted 08/14/17 05:18 Red Blood Count 3.94, Mean Corpuscular Volume 85.5, Mean Corpuscular Hemoglobin 29.9, Mean Corpuscular Hemoglobin Concent 35.0, Mean Platelet Volume 9.6, Neutrophils (%) (Auto) 87.3, Lymphocytes (%) (Auto) 6.2, Monocytes (%) (Auto) 6.2, Eosinophils (%) (Auto) 0.0, Basophils (%) (Auto) 0.1, Neutrophils # (Auto) 11.76, Lymphocytes # (Auto) 0.83, Monocytes # (Auto) 0.84, Eosinophils # (Auto) 0.00, Basophils # (Auto) 0.01 Last Resulted 08/14/17 05:18 Past 24 Hours Test 08/14/17 05:18 08/14/17 11:45 Range/Units Troponin I < 0.015 < 0.015 0-0.045 ng/ml Creatine Kinase MB 0.7 0.5-3.6 ng/ml Creatine Kinase MB Ratio 0.7 0-3.0 Total Creatine Kinase 104 39-308 U/L EKG as noted in the history of present illness Telemetry reveals sinus rhythm CT angiogram of the chest revealed no evidence of aortic dissection with thoracic aortic aneurysm diameter 3.9 centimeters. No pulmonary infiltrate. No abdominal aortic aneurysm or dissection The CT of the abdomen and pelvis was limited for evaluation of kidney stones due to IV contrast and menstruation. Transthoracic echocardiogram performed 08/14/17: Mild concentric left ventricular hypertrophy is present. No regional wall motion on her valves are noted near the left jugular ejection fraction was normal at 60-65%. Trace mitral regurgitation is present. The proximal ascending thoracic aorta was mildly enlarged and a diameter of 4?? 2 cm, relatively stable compared to the October 2016 outpatient echo Assessment & Plan Impression: 62-year-old male 1. 12+ hours of persistent severe right flank, back, and midline chest discomfort with normal cardiac enzymes 2, remote EKG 2, normal resting echocardiogram 2. History of difficult to control hypertension, obstructive CAD, peripheral arterial disease, dyslipidemia Discussion/recommendations: The patient did describe a recent cough illness, but it does not appear that he is having chest pain due to costochondritis from a cough is is not exhibiting a cough at present. He noted flulike symptoms last evening, he has no objective fever and no current symptoms to suggest fever however I'm going to request an influenza screen. In the process of performing this report, his second set of cardiac enzymes have come back and they're negative. The third set is going to be due in another 6 hours this evening. At this point, I think it is likely that his chest pain is non-vascular and noncardiac. He does not remember doing anything from a musculoskeletal standpoint to strained his back. We'll continue to monitor the patient closely.
--- NOTE | 2017-08-14 14:56 | EMERGENCY ROOM VISIT NOTE ---
ED Visit Note First contact with patient: 06:53 Patient is a 62-year-old male signed out to me awaiting results of CT and ultrasound. Initially presented for chest pain/right flank pain. CTA was unremarkable along with ultrasound of the right upper quadrant. I did CT the abdomen and pelvis as this did sound slightly like a stone. This was a difficult study due to the timing with the previous contrast. Nothing acute on any of these studies. Patient had received multiple doses of narcotics. Patient family were updated at bedside. He was admitted to internal medicine for chest pain associated with right flank pain.
[2017-08-14 15:39] VITALS: BP 157/72; PULSE 72; TEMP 36.7; O2SAT 97
[2017-08-14 15:59] LABS: INFLUENZA B ANTIGEN Neg for Influ B (NEG)
[2017-08-14 16:39] LABS: INFLUENZA A PCR Neg for Influ A (NEG); INFLUENZA B PCR Neg for Influ B (NEG)
[2017-08-14] MEDS: HYDROmorphone INJ 2 MG/ML SYR/VIAL IV PRN ×2 (17:18→23:38)
[2017-08-14 18:44] LABS: CKMB 0.7 ng/ml (0.5-3.6)
[2017-08-14 19:26] VITALS: BP 168/90; PULSE 78; TEMP 36.9; O2SAT 97
[2017-08-14] MEDS: ONDANSETRON INJ 2 MG/ML 2 ML VIAL IV PRN (19:37)
[2017-08-14] MEDS ORDERED: INSULIN GLARGINE SOLOSTAR 100 UNITS/ML 3 ML PEN SC ONE (20:59)
[2017-08-14] MEDS ORDERED: INSULIN ASPART 100 UNITS/ML 3 ML PEN SC ONE (21:00)
[2017-08-14] MEDS ORDERED: INSULIN GLARGINE SOLOSTAR 100 UNITS/ML 3 ML PEN SC SCH (21:00)
[2017-08-14] MEDS: CARVEDILOL 25 MG TAB PO SCH (21:42)
[2017-08-15] VITALS (8 sets, daily range): BP systolic 125–170; BP diastolic 54–77; PULSE 70–101; TEMP 36.5–38.4; O2SAT 91–96
[2017-08-15] MEDS: HYDROmorphone INJ 2 MG/ML SYR/VIAL IV PRN ×2 (05:47→08:55)
[2017-08-15 06:03] LABS: HEMATOCRIT 30.5 % (42-52); HEMOGLOBIN 10.3 g/dL (14.0-18.0); IG# 0.05 K/uL (0.00-0.02); LYMPH % 5.4 %; LYMPH ABS # 0.79 K/uL (1.2-3.4); MEAN CELL VOLUME 85.9 fL (80-100); MEAN CORPUSCULAR HGB CONC 33.8 g/dl (32-36); MEAN PLATELET VOLUME 9.5 fL (7.4-10.4); MONO ABS # 1.02 K/uL (0.11-0.59); NEUT % 87.3 %; NEUT ABS # 12.75 K/uL (1.4-6.5); PLATELET COUNT 195 K/uL (130-400); RED CELL DISTRIBUTION WIDTH CV 13.6 % (11.5-14.5); RED CELL DISTRIBUTION WIDTH SD 43.4 fL (36.4-46.3); WHITE BLOOD COUNT 14.61 K/uL (4.8-10.8)
[2017-08-15 06:34] LABS: CALCIUM 8.6 mg/dl (8.5-10.1); CREATININE 2.16 mg/dl (0.60-1.40); POTASSIUM 4.7 mmol/L (3.5-5.1)
[2017-08-15] MEDS: INSULIN ASPART 100 UNITS/ML 3 ML PEN SC SCH ×4 (08:51→21:19)
[2017-08-15] MEDS: ATORVASTATIN 20 MG TAB PO SCH (08:56)
[2017-08-15] MEDS: CHOLECALCIFEROL 1000 INTER.UNIT TAB PO SCH (08:56)
[2017-08-15] MEDS: ASPIRIN 81 MG ECTAB PO SCH (08:56)
[2017-08-15] MEDS: CLOPIDOGREL BISULFATE 75 MG TAB PO SCH (08:56)
[2017-08-15] MEDS: CARVEDILOL 25 MG TAB PO SCH ×2 (08:57→21:07)
[2017-08-15] MEDS: AMLODIPINE BESYLATE 5 MG TAB PO SCH (08:57)
[2017-08-15] MEDS ORDERED: SPIRONOLACTONE 25 MG TAB PO SCH (09:00)
[2017-08-15] MEDS: ONDANSETRON INJ 2 MG/ML 2 ML VIAL IV PRN (09:26)
[2017-08-15] MEDS ORDERED: PROMETHAZINE HCL INJ 12.5 MG in SODIUM CHLORIDE 0.9% 50ML 50 ML IV PRN (11:30)
--- NOTE | 2017-08-15 11:53 | DIAGNOSTIC IMAGING REPORT ---
CHEST ONE VIEW PORTABLE CLINICAL HISTORY: congestion COMPARISON STUDY: 08/14/2017 FINDINGS: The heart is mildly enlarged. There is no failure. There is no focal pulmonary consolidation. There are no pleural effusions. There are minor atelectatic changes at the lung bases.[ IMPRESSION: No active disease in the chest. Electronically signed by: Javy Love M.D. 08/15/2017 11:52 AM Dictated Date/Time: 08/15/2017 11:52 AM
[2017-08-15] MEDS ORDERED: PIPERACILL/TAZOBAC IV 4.5 GM in DEXTROSE 5% 100ML 100 ML IV SCH (14:00)
[2017-08-15] MEDS ORDERED: VANCOMYCIN INJ 1,000 MG in SODIUM CHLORIDE 0.9% 250ML 250 ML IV SCH (14:00)
[2017-08-15] MEDS ORDERED: PIPERACILL/TAZOBAC CONSULT ACTIVE PRN (14:30)
[2017-08-15] MEDS ORDERED: VANCOMYCIN CONSULT ACTIVE PRN (14:30)
[2017-08-15] MEDS ORDERED: PIPERACILL/TAZOBAC IV 4.5 GM in DEXTROSE 5% 100ML IV ONE (14:45)
[2017-08-15] MEDS ORDERED: VANCOMYCIN INJ 2,250 MG in SODIUM CHLORIDE 0.9% 500ML 500 ML IV ONE (14:45)
[2017-08-15] MEDS: ACETAMINOPHEN 325 MG TAB PO PRN (15:39)
--- NOTE | 2017-08-15 16:39 | Pharmacy Progress Note ---
Pharmacy Antibiotic Consult Date of Service: Aug 15, 2017. Pharmacy Dosing Scope Pharmacy is consulted to initiate zosyn and vancomycin IV dosing therapy, order appropriate labs and adjust drug dose/frequency. Subjective The patient is a 62 year old male admitted on Aug 14, 2017 at 09:40. Objective Height (Feet): 6 Height (Inches): 0.00 Weight (Kilograms): 93.400 Lab Results (24hrs): Test 08/14/17 17:55 08/15/17 05:36 08/15/17 06:39 08/15/17 11:08 Total Creatine Kinase 80 U/L (39-308) Creatine Kinase MB 0.7 ng/ml (0.5-3.6) Creatine Kinase MB Ratio 0.9 (0-3.0) Troponin I < 0.015 ng/ml (0-0.045) < 0.015 ng/ml (0-0.045) White Blood Count 14.61 K/uL (4.8-10.8) Red Blood Count 3.55 M/uL (4.7-6.1) Hemoglobin 10.3 g/dL (14.0-18.0) Hematocrit 30.5 % (42-52) Mean Corpuscular Volume 85.9 fL (80-100) Mean Corpuscular Hemoglobin 29.0 pg (25-34) Mean Corpuscular Hemoglobin Concent 33.8 g/dl (32-36) Platelet Count 195 K/uL (130-400) Mean Platelet Volume 9.5 fL (7.4-10.4) Neutrophils (%) (Auto) 87.3 % Lymphocytes (%) (Auto) 5.4 % Monocytes (%) (Auto) 7.0 % Eosinophils (%) (Auto) 0.0 % Basophils (%) (Auto) 0.0 % Neutrophils # (Auto) 12.75 K/uL (1.4-6.5) Lymphocytes # (Auto) 0.79 K/uL (1.2-3.4) Monocytes # (Auto) 1.02 K/uL (0.11-0.59) Eosinophils # (Auto) 0.00 K/uL (0-0.5) Basophils # (Auto) 0.00 K/uL (0-0.2) RDW Standard Deviation 43.4 fL (36.4-46.3) RDW Coefficient of Variation 13.6 % (11.5-14.5) Immature Granulocyte % (Auto) 0.3 % Immature Granulocyte # (Auto) 0.05 K/uL (0.00-0.02) Sodium Level 135 mmol/L (136-145) Potassium Level 4.7 mmol/L (3.5-5.1) Chloride Level 106 mmol/L (98-107) Carbon Dioxide Level 20 mmol/L (21-32) Anion Gap 9.0 mmol/L (3-11) Blood Urea Nitrogen 40 mg/dl (7-18) Creatinine 2.16 mg/dl (0.60-1.40) Est Creatinine Clear Calc Drug Dose 43.2 ml/min Estimated GFR () 37.2 Estimated GFR (Non- 32.1 BUN/Creatinine Ratio 18.4 (10-20) Random Glucose 264 mg/dl (70-99) Calcium Level 8.6 mg/dl (8.5-10.1) Magnesium Level 2.3 mg/dl (1.8-2.4) Triglycerides Level 90 mg/dl (0-150) Cholesterol Level 121 mg/dl (0-200) HDL Cholesterol 39 mg/dl LDL Cholesterol, Calculated 64 mg/dl VLDL Cholesterol, Calculated 18 mg/dl Cholesterol/HDL Ratio 3.1 Bedside Glucose 266 mg/dl (70-99) 234 mg/dl (70-99) Test 08/15/17 13:57 Urine Color YELLOW Urine Appearance TURBID (CLEAR) Urine pH 5.0 (4.5-7.5) Urine Specific [place] 1.022 (1.000-1.030) Urine Protein 1+ (NEG) Urine Glucose (UA) 1+ (NEG) Urine Ketones NEG (NEG) Urine Occult Blood 2+ (NEG) Urine Nitrite NEG (NEG) Urine Bilirubin NEG (NEG) Urine Urobilinogen NEG (NEG) Urine Leukocyte Esterase LARGE (NEG) Urine WBC (Auto) >30 /hpf (0-5) Urine RBC (Auto) 10-30 /hpf (0-4) Urine Hyaline Casts (Auto) 1-5 /lpf (0-5) Urine Epithelial Cells (Auto) 5-10 /lpf (0-5) Urine Bacteria (Auto) 2+ (NEG) Urine Yeast (Auto) (NONE PRSENT) Micro Results: Date/Time Source Procedure Growth Status 08/15/17 14:24 Blood Blood Culture Pending Received 08/15/17 14:10 Blood Blood Culture Pending Received 08/15/17 13:57 Urine , Clean Catch Urine Culture Pending Received Assessment & Plan Assessment: 62 yo male came into ED with severe chest pain, right flank pain and back pain. PMH: HTN, DM, Thoracic aortic aneurysms, dyspnea on exertion, CKD stg III, recurrent UTI, PAD UA: >30 WBC, 5-10 Epi, Nitrite (-), 2+ Bacteria, WBC 14.6, Tmax 38.4 Starting empiric vanco/zosyn for complicated UTI Urine culture, Blood cultures pending. Plan: Loading dose: 2250 mg (24 mg/kg) IV X 1 dose then: 1500 mg (16 mg/kg) IV every 18 hours. population pk: SCr 2.16 (improving), CrCl estimate 43.2, T1/2 ~17 hrs Goal trough level estimate: between 15-20 mcg/mL. Will reassess renal function in AM and adjust dose as needed. Trough not ordered due to changing renal function will reevaluate tomorrow. Pharmacy will continue to follow and will adjust dose/frequency as necessary. Thank you
--- NOTE | 2017-08-15 18:32 | Progress Note ---
Internal Med Progress Note Date of Service: Aug 15, 2017. Provider Documentation: SUBJECTIVE: still having significant chest pain right flank pain is better sweating sometimes later had shivering as per nursing staff and spiked temp nauseous OBJECTIVE: Vital Signs-as noted below Exam: General-alert and oriented. In pain ENT-normal hearing Neck-no neck masses supple Lungs-cta b/l no wheezing or crackles Heart-s1 and s2 heard regular rate and rhythm no murmurs Abdomen-soft bowel sounds present diffuse tender no guarding no rigidity no distension Extremities-no edema no erythema Neuro-alert and oriented moves extremities Lab data as noted below. ASSESSMENT & PLAN: This is a 62-year-old male who presents with severe chest pain and abdominal pain. 1. Severe chest pain and abdominal pain, more on the right flank. Imaging studies were unremarkable. Stable thoracic aneurysm.serial ce and echo unremarkable appreciate cardiology inputs still has pain-musculoskeletal has degenerative spine consulted pain management and ortho. pain control. 2. Abdominal pain CT of the abdomen and pelvis unremarkable. Labs are okay. Gallbladder ultrasound is okay. consulted pain management.Abdominal somewhat better today. 3. Possible sepsis had shaking and temp spike leukocytosis UA positive had urinary retention and on Bernstein started on iv abx iv vancomycin and Zosyn. will monitor. 4. Urinary retention significant prostatomegaly on ct scan s/p Bernstein urology consulted. 4. History of diabetes. Continue Lantus and placed on insulin sliding scale. HBA1c levels. 6.9 4. History of hypertension. On home medication of Coreg, amlodipine, hydralazine, terazosin. Holding the Lasix for now. We will monitor the blood pressure in the hospital. 5. History of chronic kidney disease stage III, baseline creatinine around 2.2 to 2.3, presented with creatinine of 2.4. We will follow the labs on fluids, holding Lasix and Aldactone. Cr 2.1 today 6. Peripheral vascular disease status post femoral popliteal bypass surgery on aspirin and Plavix. Will continue. Also on statin. 7. History of thoracic aortic aneurysm. CT of the chest shows stable thoracic aortic aneurysm. Needs followup. 8. Deep venous thrombosis prophylaxis. SCDs for now. 9. Disposition. Observation on tele floor. Expect to discharge home and follow with his family doctor. LEVEL 1 FULL CODE. Vital Signs: Date Time Temp Pulse Resp B/P (MAP) Pulse Ox O2 Delivery O2 Flow Rate FiO2 08/15/17 17:04 36.8 08/15/17 16:00 Room Air 08/15/17 15:24 38.4 101 24 170/54 (92) 91 Room Air 08/15/17 12:02 36.5 70 18 153/77 (102) 92 Room Air 08/15/17 12:00 Room Air 08/15/17 09:17 74 20 162/75 (104) 94 08/15/17 08:07 36.7 71 18 155/73 (100) 93 Room Air 08/15/17 07:30 Room Air 08/15/17 04:00 Room Air 08/15/17 03:40 36.9 82 18 149/64 (92) 93 Room Air 08/15/17 00:09 37.0 88 18 161/67 (98) 96 Room Air 08/15/17 00:00 Room Air 08/14/17 20:00 Room Air 08/14/17 19:26 36.9 78 18 168/90 (116) 97 Room Air Lab Results: Results Past 24 Hours Test 08/14/17 20:30 08/15/17 05:36 08/15/17 06:39 08/15/17 11:08 Range/Units Bedside Glucose 304 266 234 70-99 mg/dl White Blood Count 14.61 4.8-10.8 K/uL Red Blood Count 3.55 4.7-6.1 M/uL Hemoglobin 10.3 14.0-18.0 g/dL Hematocrit 30.5 42-52 % Mean Corpuscular Volume 85.9 80-100 fL Mean Corpuscular Hemoglobin 29.0 25-34 pg Mean Corpuscular Hemoglobin Concent 33.8 32-36 g/dl Platelet Count 195 130-400 K/uL Mean Platelet Volume 9.5 7.4-10.4 fL Neutrophils (%) (Auto) 87.3 % Lymphocytes (%) (Auto) 5.4 % Monocytes (%) (Auto) 7.0 % Eosinophils (%) (Auto) 0.0 % Basophils (%) (Auto) 0.0 % Neutrophils # (Auto) 12.75 1.4-6.5 K/uL Lymphocytes # (Auto) 0.79 1.2-3.4 K/uL Monocytes # (Auto) 1.02 0.11-0.59 K/uL Eosinophils # (Auto) 0.00 0-0.5 K/uL Basophils # (Auto) 0.00 0-0.2 K/uL RDW Standard Deviation 43.4 36.4-46.3 fL RDW Coefficient of Variation 13.6 11.5-14.5 % Immature Granulocyte % (Auto) 0.3 % Immature Granulocyte # (Auto) 0.05 0.00-0.02 K/uL Sodium Level 135 136-145 mmol/L Potassium Level 4.7 3.5-5.1 mmol/L Chloride Level 106 98-107 mmol/L Carbon Dioxide Level 20 21-32 mmol/L Anion Gap 9.0 3-11 mmol/L Blood Urea Nitrogen 40 7-18 mg/dl Creatinine 2.16 0.60-1.40 mg/dl Est Creatinine Clear Calc Drug Dose 43.2 ml/min Estimated GFR () 37.2 Estimated GFR (Non- 32.1 BUN/Creatinine Ratio 18.4 10-20 Random Glucose 264 70-99 mg/dl Calcium Level 8.6 8.5-10.1 mg/dl Magnesium Level 2.3 1.8-2.4 mg/dl Troponin I < 0.015 0-0.045 ng/ml Triglycerides Level 90 0-150 mg/dl Cholesterol Level 121 0-200 mg/dl HDL Cholesterol 39 mg/dl LDL Cholesterol, Calculated 64 mg/dl VLDL Cholesterol, Calculated 18 mg/dl Cholesterol/HDL Ratio 3.1 Test 08/15/17 13:57 08/15/17 16:32 Range/Units Urine Color YELLOW Urine Appearance TURBID CLEAR Urine pH 5.0 4.5-7.5 Urine Specific [place] 1.022 1.000-1.030 Urine Protein 1+ NEG Urine Glucose (UA) 1+ NEG Urine Ketones NEG NEG Urine Occult Blood 2+ NEG Urine Nitrite NEG NEG Urine Bilirubin NEG NEG Urine Urobilinogen NEG NEG Urine Leukocyte Esterase LARGE NEG Urine WBC (Auto) >30 0-5 /hpf Urine RBC (Auto) 10-30 0-4 /hpf Urine Hyaline Casts (Auto) 1-5 0-5 /lpf Urine Epithelial Cells (Auto) 5-10 0-5 /lpf Urine Bacteria (Auto) 2+ NEG Urine Yeast (Auto) NONE PRSENT Bedside Glucose 215 70-99 mg/dl Microbiology Results 08/15/17 Blood Culture, Received Pending 08/15/17 Blood Culture, Received Pending 08/15/17 Urine Culture, Received Pending
[2017-08-15] MEDS ORDERED: INSULIN GLARGINE SOLOSTAR 100 UNITS/ML 3 ML PEN SC ONE (20:27)
[2017-08-15] MEDS ORDERED: INSULIN GLARGINE SOLOSTAR 100 UNITS/ML 3 ML PEN SC SCH (21:00)
[2017-08-15] MEDS: PIPERACILL/TAZOBAC IV 3.375 GM in DEXTROSE 5% 100ML IV SCH (21:10)
[2017-08-16] VITALS (10 sets, daily range): BP systolic 113–160; BP diastolic 58–78; PULSE 70–98; TEMP 36.4–38.2; O2SAT 89–93
[2017-08-16] MEDS: HYDROmorphone INJ 2 MG/ML SYR/VIAL IV PRN (01:21)
[2017-08-16] MEDS: PIPERACILL/TAZOBAC IV 3.375 GM in DEXTROSE 5% 100ML IV SCH ×3 (05:06→19:30)
[2017-08-16 06:02] LABS: HEMATOCRIT 28.6 % (42-52); HEMOGLOBIN 9.5 g/dL (14.0-18.0); MEAN CELL VOLUME 85.6 fL (80-100); MEAN CORPUSCULAR HEMOGLOBIN 28.4 pg (25-34); MEAN CORPUSCULAR HGB CONC 33.2 g/dl (32-36); MEAN PLATELET VOLUME 9.6 fL (7.4-10.4); PLATELET COUNT 186 K/uL (130-400); RED CELL DISTRIBUTION WIDTH CV 13.9 % (11.5-14.5); RED CELL DISTRIBUTION WIDTH SD 43.8 fL (36.4-46.3); WHITE BLOOD COUNT 15.33 K/uL (4.8-10.8)
[2017-08-16 06:24] LABS: IG# 0.04 K/uL (0.00-0.02); LYMPH % 5.5 %; LYMPH ABS # 0.84 K/uL (1.2-3.4); MONO ABS # 0.76 K/uL (0.11-0.59); NEUT % 89.2 %; NEUT ABS # 13.69 K/uL (1.4-6.5)
[2017-08-16 06:39] LABS: CALCIUM 8.5 mg/dl (8.5-10.1); CREATININE 2.36 mg/dl (0.60-1.40); POTASSIUM 4.3 mmol/L (3.5-5.1)
[2017-08-16] MEDS: ONDANSETRON INJ 2 MG/ML 2 ML VIAL IV PRN (07:52)
[2017-08-16] MEDS: INSULIN GLARGINE SOLOSTAR 100 UNITS/ML 3 ML PEN SC SCH ×2 (07:56→21:02)
[2017-08-16] MEDS: INSULIN ASPART 100 UNITS/ML 3 ML PEN SC SCH ×4 (07:56→21:02)
[2017-08-16] MEDS: VANCOMYCIN INJ 1,500 MG in SODIUM CHLORIDE 0.9% 500ML 500 ML IV SCH (08:00)
[2017-08-16] MEDS: ASPIRIN 81 MG ECTAB PO SCH (08:04)
[2017-08-16] MEDS: ACETAMINOPHEN 325 MG TAB PO PRN (08:04)
[2017-08-16] MEDS: CLOPIDOGREL BISULFATE 75 MG TAB PO SCH (08:05)
[2017-08-16] MEDS: CARVEDILOL 25 MG TAB PO SCH ×2 (08:05→20:14)
[2017-08-16] MEDS: ATORVASTATIN 20 MG TAB PO SCH (08:05)
[2017-08-16] MEDS: AMLODIPINE BESYLATE 5 MG TAB PO SCH (08:05)
[2017-08-16] MEDS: CHOLECALCIFEROL 1000 INTER.UNIT TAB PO SCH (08:06)
[2017-08-16] MEDS ORDERED: LEVALBUTEROL/IPRATROPIUM NEB INH PRN (09:15)
[2017-08-16] MEDS: IPRATROPIUM BROMIDE NEB SOLN 0.02% 2.5 ML VIAL INH PRN (09:35)
[2017-08-16] MEDS: LEVALBUTEROL 1.25MG/0.5ML NEB INH PRN (09:35)
[2017-08-16] MEDS ORDERED: AZITHROMYCIN 250 MG TAB PO ONE (09:45)
--- NOTE | 2017-08-16 09:52 | Progress Note ---
Internal Med Progress Note Date of Service: Aug 16, 2017. Provider Documentation: SUBJECTIVE: was again today morning and had a temp spike says still has chest pain it hurts to breath and not talking deep breaths requiring oxygen abdominal pain is better no nausea OBJECTIVE: Vital Signs-as noted below Exam: General-alert and oriented. In pain ENT-normal hearing Neck-no neck masses supple Lungs-cta b/l no wheezing or crackles Heart-s1 and s2 heard regular rate and rhythm no murmurs Abdomen-soft bowel sounds present diffuse mild tender no guarding no rigidity no distension Extremities-no edema no erythema Neuro-alert and oriented moves extremities Lab data as noted below. ASSESSMENT & PLAN: This is a 62-year-old male who presents with severe chest pain and abdominal pain. 1. Severe chest pain and abdominal pain, more on the right flank. Imaging studies were unremarkable. Stable thoracic aneurysm.serial ce and echo unremarkable appreciate cardiology inputs still has pain-musculoskeletal has degenerative spine consulted pain management and ortho. pain control. will repeat CE 2. Abdominal pain CT of the abdomen and pelvis unremarkable. Labs are okay. Gallbladder ultrasound is okay. consulted pain management.Abdominal somewhat better now. 3. Possible sepsis had shaking and temp spike leukocytosis UA positive had urinary retention and on Bernstein started on iv abx iv vancomycin and Zosyn. one of blood cx positive for gm positive cocci\continue currenrt abx Hypoxia requiring oxygen Not able to take deep breaths because of pain will f/u abg Ct chest without contrast to rule out any ongoing infection or congestion Urinary retention significant prostatomegaly on ct scan s/p Bernstein urology consulted. History of diabetes. Continue Lantus and placed on insulin sliding scale. HBA1c levels. 6.9 . Will monitor History of hypertension. On home medication of Coreg, amlodipine, hydralazine, terazosin. Holding the Lasix for now. We will monitor the blood pressure in the hospital. History of chronic kidney disease stage III, baseline creatinine around 2.2 to 2.3, presented with creatinine of 2.4. We will follow the labs on fluids, holding Lasix and Aldactone. Cr 2.3 today Peripheral vascular disease status post femoral popliteal bypass surgery on aspirin and Plavix. Will continue. Also on statin. History of thoracic aortic aneurysm. CT of the chest shows stable thoracic aortic aneurysm. Needs followup. Deep venous thrombosis prophylaxis. SCDs for now. Disposition. Monitor in tele floor. Expect to discharge home and follow with his family doctor. LEVEL 1 FULL CODE. Vital Signs: Date Time Temp Pulse Resp B/P (MAP) Pulse Ox O2 Delivery O2 Flow Rate FiO2 08/16/17 09:36 91 18 93 Nasal Cannula 4.0 08/16/17 09:05 38.2 91 Nasal Cannula 4.0 08/16/17 08:07 38.0 98 18 160/58 (92) 89 08/16/17 08:00 Nasal Cannula 4.0 08/16/17 04:00 Room Air 08/16/17 03:31 36.4 94 16 113/78 (90) 93 Room Air 08/16/17 00:30 36.8 74 16 145/70 (95) 91 Room Air 08/16/17 00:28 36.8 74 16 145/70 (95) 91 08/16/17 00:00 Room Air 08/15/17 20:00 Room Air 08/15/17 18:50 36.6 88 22 125/68 (87) 92 Room Air 08/15/17 17:04 36.8 08/15/17 16:00 Room Air 08/15/17 15:24 38.4 101 24 170/54 (92) 91 Room Air 08/15/17 12:02 36.5 70 18 153/77 (102) 92 Room Air 08/15/17 12:00 Room Air Lab Results: Results Past 24 Hours Test 08/15/17 11:08 08/15/17 13:57 08/15/17 16:32 08/15/17 20:11 Range/Units Bedside Glucose 234 215 179 70-99 mg/dl Urine Color YELLOW Urine Appearance TURBID CLEAR Urine pH 5.0 4.5-7.5 Urine Specific Isabella 1.022 1.000-1.030 Urine Protein 1+ NEG Urine Glucose (UA) 1+ NEG Urine Ketones NEG NEG Urine Occult Blood 2+ NEG Urine Nitrite NEG NEG Urine Bilirubin NEG NEG Urine Urobilinogen NEG NEG Urine Leukocyte Esterase LARGE NEG Urine WBC (Auto) >30 0-5 /hpf Urine RBC (Auto) 10-30 0-4 /hpf Urine Hyaline Casts (Auto) 1-5 0-5 /lpf Urine Epithelial Cells (Auto) 5-10 0-5 /lpf Urine Bacteria (Auto) 2+ NEG Urine Yeast (Auto) NONE PRSENT Test 08/16/17 05:39 08/16/17 06:39 08/16/17 09:35 Range/Units White Blood Count 15.33 4.8-10.8 K/uL Red Blood Count 3.34 4.7-6.1 M/uL Hemoglobin 9.5 14.0-18.0 g/dL Hematocrit 28.6 42-52 % Mean Corpuscular Volume 85.6 80-100 fL Mean Corpuscular Hemoglobin 28.4 25-34 pg Mean Corpuscular Hemoglobin Concent 33.2 32-36 g/dl Platelet Count 186 130-400 K/uL Mean Platelet Volume 9.6 7.4-10.4 fL Neutrophils (%) (Auto) 89.2 % Lymphocytes (%) (Auto) 5.5 % Monocytes (%) (Auto) 5.0 % Eosinophils (%) (Auto) 0.0 % Basophils (%) (Auto) 0.0 % Neutrophils # (Auto) 13.69 1.4-6.5 K/uL Lymphocytes # (Auto) 0.84 1.2-3.4 K/uL Monocytes # (Auto) 0.76 0.11-0.59 K/uL Eosinophils # (Auto) 0.00 0-0.5 K/uL Basophils # (Auto) 0.00 0-0.2 K/uL RDW Standard Deviation 43.8 36.4-46.3 fL RDW Coefficient of Variation 13.9 11.5-14.5 % Immature Granulocyte % (Auto) 0.3 % Immature Granulocyte # (Auto) 0.04 0.00-0.02 K/uL Toxic Vacuolation OCCASIONAL Sodium Level 132 136-145 mmol/L Potassium Level 4.3 3.5-5.1 mmol/L Chloride Level 104 98-107 mmol/L Carbon Dioxide Level 23 21-32 mmol/L Anion Gap 5.0 3-11 mmol/L Blood Urea Nitrogen 44 7-18 mg/dl Creatinine 2.36 0.60-1.40 mg/dl Est Creatinine Clear Calc Drug Dose 39.6 ml/min Estimated GFR () 33.4 Estimated GFR (Non- 28.8 BUN/Creatinine Ratio 18.6 10-20 Random Glucose 234 70-99 mg/dl Calcium Level 8.5 8.5-10.1 mg/dl Magnesium Level 2.1 1.8-2.4 mg/dl Bedside Glucose 234 70-99 mg/dl Microbiology Results 08/15/17 Blood Culture - Preliminary, Resulted Gram Positive Cocci 08/15/17 Blood Culture, Received Pending 08/15/17 Urine Culture - Preliminary, Resulted Staphylococcus Aureus
[2017-08-16] MEDS: SODIUM CHLORIDE 0.9% 1000ML 1,000 ML IV SCH ×2 (10:07→22:34)
[2017-08-16] MEDS ORDERED: SODIUM CHLORIDE 0.9% 1000ML 500 ML IV SCH (10:15)
--- NOTE | 2017-08-16 12:28 | DIAGNOSTIC IMAGING REPORT ---
CT OF THE CHEST WITHOUT IV CONTRAST CLINICAL HISTORY: Hypoxia. Right-sided chest pain. COMPARISON STUDY: Chest CT August 14, 2017 and chest radiograph August 15, 2017. CT DOSE: 690.31 mGy.cm TECHNIQUE: Axial images of the chest were obtained without IV contrast. Images were reviewed in the axial, sagittal, and coronal planes. IV contrast was not administered for this examination. A dose lowering technique was utilized adhering to the principles of ALARA. FINDINGS: No enlarged axillary, mediastinal or hilar lymph nodes are present. There is mild dilatation of the ascending aorta which measures 4 cm. There is extensive coronary artery calcification. There is no significant pericardial effusion. Small right and trace left pleural effusions are noted. Interlobular septal thickening suggests mild pulmonary edema. There is no consolidation to suggest pneumonia. Lungs are suboptimally assessed due to respiratory motion artifact. No suspicious osseous lesions within the bony thorax are noted. Visualized portions of the upper abdomen demonstrate a partially visualized mildly enlarged right retrocaval lymph node that measures 1.1 cm in short axis diameter. IMPRESSION: 1. Small right and trace left pleural effusions. 2. Findings suggestive of mild interstitial edema. No consolidation to suggest pneumonia. 3. Mildly enlarged nonspecific right retrocaval lymph node. Electronically signed by: Jamil Reyes M.D. 08/16/2017 12:27 PM Dictated Date/Time: 08/16/2017 12:18 PM
--- NOTE | 2017-08-16 12:38 | DIAGNOSTIC IMAGING REPORT ---
MRI OF THE LUMBAR SPINE WITHOUT CONTRAST CLINICAL HISTORY: Back pain. Urinary infection with sepsis. COMPARISON STUDY: Lumbar spine radiographs September 28, 2009. TECHNIQUE: Utilizing a 1.5 Lurdes magnet and dedicated coil, multiplanar, multiecho imaging of the lumbar spine was performed without IV contrast. FINDINGS: For purposes of numbering on this exam, the L5-S1 disc space is assigned to axial image 23 of 25. No intracanalicular mass or fluid collection is present. Incidental note is made of a fatty filum terminale. Conus terminates at the upper L1 level. Paravertebral soft tissues are unremarkable. A T2 hyperintense right renal lesion was shown to reflect a cyst on ultrasound of August 14, 2017. There is no intracanalicular mass or fluid collection. There is no evidence for discitis. L1-2: There is mild disc bulge and facet arthrosis. There is mild to moderate narrowing of the central canal and lateral recesses with mild during of both neural foramen. L2-3: There is minimal disc bulge and facet arthrosis. Central canal and neural foramen are patent. L3-4: There is disc bulge with ligamentous hypertrophy and facet arthrosis that result in mild to moderate narrowing of the central canal, lateral recesses and neural foramen. L4-5: There is disc bulge with a small superimposed central disc protrusion. There is mild narrowing of the central canal and lateral recesses as well as mild narrowing of both neural foramen. L5-S1: There is a central annular tear with tiny disc protrusion. Central canal and neural foramen are patent. IMPRESSION: 1. No acute abnormality within the lumbar spine by MRI. 2. Multilevel degenerative disc disease and facet arthrosis within the lumbar spine that results in mild to moderate narrowing of the central canal and neural foramen, as described above. Electronically signed by: Jamil Reyes M.D. 08/16/2017 12:37 PM Dictated Date/Time: 08/16/2017 12:32 PM
[2017-08-16] MEDS: HYDROmorphone INJ 1 MG/ML SYR IV PRN ×3 (16:12→23:12)
--- NOTE | 2017-08-16 16:22 | DIAGNOSTIC IMAGING REPORT ---
MRI OF THE THORACIC SPINE WITHOUT CONTRAST CLINICAL HISTORY: Urinary tract infection with sepsis. Back pain. Evaluate for evidence of discitis. COMPARISON: None. TECHNIQUE: Utilizing a 1.5 Lurdes magnet and dedicated coil, multiplanar, multiecho imaging of the thoracic spine was performed without IV contrast. FINDINGS: Alignment of the thoracic spine is anatomic. Vertebral body heights are maintained. There is no suspicious marrow replacement. There is no marrow edema. There is no evidence for discitis by MRI. No intracanalicular mass or fluid collection is present. Thoracic cord signal and caliber are normal. There are several small disc protrusions that result in mild narrowing of the central canal. The neural foramen are patent. No paraspinal fluid collection is identified. IMPRESSION: 1. No acute abnormality within the MRI by thoracic spine. No evidence for discitis. No epidural abscess. 2. Mild multilevel degenerative disc disease with several small disc protrusions. Electronically signed by: Jamil Reyes M.D. 08/16/2017 4:20 PM Dictated Date/Time: 08/16/2017 4:14 PM
[2017-08-17] VITALS (12 sets, daily range): BP systolic 141–161; BP diastolic 61–77; PULSE 65–74; TEMP 36.5–37.2; O2SAT 90–97; Ht 182.9 cm; Wt 94.5 kg
[2017-08-17] MEDS: VANCOMYCIN INJ 1,500 MG in SODIUM CHLORIDE 0.9% 500ML 500 ML IV SCH ×2 (02:33→20:20)
[2017-08-17] MEDS: HYDROmorphone INJ 1 MG/ML SYR IV PRN ×6 (05:04→21:19)
[2017-08-17] MEDS: PIPERACILL/TAZOBAC IV 3.375 GM in DEXTROSE 5% 100ML IV SCH (05:10)
[2017-08-17] MEDS: INSULIN ASPART 100 UNITS/ML 3 ML PEN SC SCH ×4 (07:00→20:24)
[2017-08-17 07:25] LABS: BASO % 0.1 %; BASO ABS # 0.01 K/uL (0-0.2); EOS % 0.1 %; EOS ABS # 0.01 K/uL (0-0.5); HEMATOCRIT 27.5 % (42-52); HEMOGLOBIN 9.4 g/dL (14.0-18.0); IG# 0.06 K/uL (0.00-0.02); LYMPH % 11.5 %; LYMPH ABS # 1.42 K/uL (1.2-3.4); MEAN CELL VOLUME 85.1 fL (80-100); MEAN CORPUSCULAR HEMOGLOBIN 29.1 pg (25-34); MEAN CORPUSCULAR HGB CONC 34.2 g/dl (32-36); MEAN PLATELET VOLUME 9.1 fL (7.4-10.4); MONO % 10.4 %; MONO ABS # 1.28 K/uL (0.11-0.59); NEUT % 77.4 %; NEUT ABS # 9.58 K/uL (1.4-6.5); PLATELET COUNT 158 K/uL (130-400); RED CELL DISTRIBUTION WIDTH CV 13.5 % (11.5-14.5); RED CELL DISTRIBUTION WIDTH SD 42.2 fL (36.4-46.3); WHITE BLOOD COUNT 12.36 K/uL (4.8-10.8)
[2017-08-17] MEDS: SODIUM CHLORIDE 0.9% 1000ML 1,000 ML IV SCH ×2 (07:46→18:17)
[2017-08-17] MEDS: CARVEDILOL 25 MG TAB PO SCH ×2 (07:47→20:21)
[2017-08-17] MEDS: ASPIRIN 81 MG ECTAB PO SCH (07:48)
[2017-08-17] MEDS: ATORVASTATIN 20 MG TAB PO SCH (07:48)
[2017-08-17] MEDS: AMLODIPINE BESYLATE 5 MG TAB PO SCH (07:49)
[2017-08-17] MEDS: CHOLECALCIFEROL 1000 INTER.UNIT TAB PO SCH (07:49)
[2017-08-17] MEDS: CLOPIDOGREL BISULFATE 75 MG TAB PO SCH (07:50)
[2017-08-17 07:52] LABS: CALCIUM 7.8 mg/dl (8.5-10.1); CREATININE 2.16 mg/dl (0.60-1.40); POTASSIUM 3.9 mmol/L (3.5-5.1)
[2017-08-17] MEDS: INSULIN GLARGINE SOLOSTAR 100 UNITS/ML 3 ML PEN SC SCH ×2 (07:52→20:24)
[2017-08-17] MEDS ORDERED: AZITHROMYCIN 250 MG TAB PO SCH (09:00)
--- NOTE | 2017-08-17 10:03 | Progress Note ---
Progress Note Date of Service Aug 17, 2017. Progress Note ID Consult Dictated #[id number] A/P: 1. GPC septicemia, suspect will be MSSA (growing from urine) 2. Foot ulcer - concerned for underlying osteo, suspect this as source of infection 3. Leukocytosis -Will maintain vanco for now, repeat blood cultures -Stop zosyn and azithro -Echo, MRI thoracic and lumbar spine negative -Suspect foot as source for infection, suggest MRI to r/o osteo -Will follow, thank you
--- NOTE | 2017-08-17 10:33 | Orthopedic Consultation ---
Orthopedic Consultation Date of Consultation: Aug 17, 2017. Attending Physician: Lamberto Carey MD Reason for Consultation: thoracic and lumbar pain for one week History of Present Illness This is a pleasant 62-year-old gentleman that we are asked to see in consultation regards to thoracic and lumbar pain for 1 week. No specific accident trauma or fall. He has fevers and is currently septic with positive blood cultures. Per the patient they're currently trying to find the source. He has no radicular leg pain, paresthesia, numbness or weakness. Ambulates independently. He reports nothing aggravates his pain. He reports the pain medication is palliative. Denies any prior history of this type of pain with the exception of cervical pain about 3 months ago. Past Medical/Surgical History Medical Problems: (1) Headache Status: Acute (2) Non-traumatic subconjunctival hemorrhage of left eye Status: Acute (3) Right-sided chest pain Status: Acute Social History Smoking Status: Never Smoker Marital Status: Housing Status: lives with family Allergies Coded Allergies: Iodinated Diagnostic Agents (Verified Allergy, Unknown, shaking, severe anxiety, 08/14/17) Home Medications Scheduled Amlodipine (Norvasc), 10 MG PO DAILY Aspirin (Aspirin Ec), 81 MG PO DAILY Atorvastatin (Lipitor), 40 MG PO DAILY Carvedilol (Coreg), 37.5 MG PO AMPM Cholecalciferol (Vitamin D), 4,000 UNITS PO DAILY Clopidogrel Bisulfate (Plavix), 75 MG PO DAILY Furosemide (Lasix), 20 MG PO BID Hydralazine HCl (Hydralazine HCl), 50 MG PO TID Insulin Glargine (Lantus Solostar), 34 UNITS SC Q12 Spironolactone (Aldactone), 12.5 MG PO DAILY Terazosin Hcl (Hytrin), 4 MG PO HS Current Inpatient Medications Current Inpatient Medications Medications (Trade) Dose Ordered Sig/Domenic Route Start Time Stop Time Status Last Admin Dose Admin Ioversol (Optiray 320) 100 ml UD PRN IV 08/14/17 05:30 08/18/17 05:29 Acetaminophen (Tylenol Tab) 650 mg Q4H PRN PO 08/14/17 09:45 09/13/17 09:44 08/16/17 08:04 650 MG Al Hydrox/Mg Hydrox/Simethicone (Maalox Max Susp) 15 ml Q4H PRN PO 08/14/17 09:45 09/13/17 09:44 Ondansetron HCl (Zofran Inj) 4 mg Q6H PRN IV 08/14/17 09:45 09/13/17 09:44 08/16/17 07:52 4 MG Nitroglycerin (Nitrostat Tab) 0.4 mg UD PRN SL 08/14/17 09:45 09/13/17 09:44 Amlodipine Besylate (Norvasc Tab) 10 mg DAILY PO 08/15/17 09:00 09/14/17 08:59 08/17/17 07:49 10 MG Aspirin (Ecotrin Tab) 81 mg DAILY PO 08/15/17 09:00 09/14/17 08:59 08/17/17 07:48 81 MG Atorvastatin Calcium (Lipitor Tab) 40 mg DAILY PO 08/15/17 09:00 09/14/17 08:59 08/17/17 07:48 40 MG Carvedilol (Coreg Tab) 37.5 mg BID PO 08/14/17 21:00 09/13/17 20:59 08/17/17 07:47 37.5 MG Cholecalciferol (Vitamin D Tab) 4,000 inter.unit DAILY PO 08/15/17 09:00 09/14/17 08:59 08/17/17 07:49 4,000 INTER.UNIT Clopidogrel Bisulfate (plAVix TAB) 75 mg DAILY PO 08/15/17 09:00 09/14/17 08:59 08/17/17 07:50 75 MG Hydralazine HCl (Apresoline Tab) 50 mg TID PO 08/14/17 14:00 09/13/17 13:59 08/17/17 07:46 50 MG Terazosin HCl (Hytrin Cap) 4 mg HS PO 08/14/17 21:00 09/13/17 20:59 08/16/17 20:14 4 MG Glucose (Glucose 40% Gel) 15-30 GRAMS 15 GRAMS... UD PRN PO 08/14/17 12:00 09/13/17 11:59 Glucose (Glucose Chew Tab) 4-8 Tablets 4 Tabl... UD PRN PO 08/14/17 12:00 09/13/17 11:59 Dextrose (Dextrose 50% 50ML Syringe) 25-50ML OF 50% DW IV FOR... UD PRN IV 08/14/17 12:00 09/13/17 11:59 Glucagon (Glucagon Inj) 1 mg UD PRN SQ 08/14/17 12:00 09/13/17 11:59 Miscellaneous (Iv Fluids Completed) 1 ea PRN PRN N/A 08/14/17 12:45 08/14/18 12:44 Insulin Aspart (novoLOG ASPART) SLIDING SCALE G... ACHS SC 08/15/17 07:00 09/13/17 10:59 08/16/17 21:02 2 UNITS Promethazine HCl 12.5 mg/Sodium Chloride 50.5 ml @ 204 mls/hr Q6H PRN IV 08/15/17 11:30 09/14/17 11:29 Vancomycin HCl (Consult) 1 ea UD PRN N/A 08/15/17 14:30 09/14/17 14:29 Vancomycin HCl 1500 mg/Sodium Chloride 530 ml @ 200 mls/hr Q18H IV 08/16/17 08:00 08/26/17 07:59 08/17/17 02:33 200 MLS/HR Insulin Glargine (Lantus Solostar Pen) 34 units BID SC 08/16/17 09:00 09/13/17 20:59 08/17/17 07:52 34 UNITS Hydromorphone HCl (Dilaudid Inj) 1 mg Q3HWA PRN IV 08/16/17 09:15 08/28/17 09:44 08/17/17 07:56 1 MG Ipratropium [place] (Atrovent 0.02% 0.5MG/2.5ML Neb) 0.5 mg Q2R PRN INH 08/16/17 09:30 09/15/17 09:29 08/16/17 09:35 0.5 MG Levalbuterol (Xopenex 1.25MG/ 0.5ML Neb) 1.25 mg Q2R PRN INH 08/16/17 09:30 09/15/17 09:29 08/16/17 09:35 1.25 MG Sodium Chloride 1,000 ml @ 100 mls/hr Q10H IV 08/16/17 11:00 09/15/17 10:59 08/17/17 07:46 100 MLS/HR Baclofen (Lioresal Tab) 10 mg TID PRN PO 08/17/17 09:15 09/16/17 09:14 Review of Systems Constitutional: + fever Respiratory: + cough, + shortness of breath Physical Exam Date Time Temp Pulse Resp B/P (MAP) Pulse Ox O2 Delivery O2 Flow Rate FiO2 08/17/17 08:00 97 Room Air 08/17/17 07:38 36.9 71 18 144/61 (88) 91 Room Air 08/17/17 04:30 36.5 22 161/74 (103) 91 Nasal Cannula 4.0 08/17/17 04:04 Room Air 08/17/17 00:05 37.2 73 18 160/77 (104) 91 3.0 08/17/17 00:02 Room Air 08/16/17 20:00 Room Air 08/16/17 19:36 37.3 75 20 155/65 (95) 90 Nasal Cannula 4.0 08/16/17 16:23 36.5 72 20 146/65 (92) 90 Nasal Cannula 2.0 08/16/17 16:00 Room Air 08/16/17 12:25 37.0 70 16 147/74 (98) 93 Nasal Cannula 4.0 08/16/17 12:00 Nasal Cannula 2.0 Patient is lying in bed in no obvious distress. He is cooperative with exam. He is neurologically intact bilateral lower extremities. Negative log rolling bilaterally. Negative tension signs bilaterally. Calves are soft and nontender bilaterally. General Appearance: no apparent distress Head: normocephalic Eyes: normal inspection ENT: normal ENT inspection Neck: supple Respiratory/Chest: no respiratory distress Cardiovascular: regular rate, rhythm Abdomen/GI: soft Back: normal inspection Extremities/Musculoskelatal: normal inspection, non-tender, pelvis stable Neurologic/Psych: no motor/sensory deficits, oriented x 3 Skin: normal color, warm/dry Lymphatic: no adenopathy Laboratory Results Last 24 Hours Test 08/16/17 11:27 08/16/17 11:50 08/16/17 16:17 08/16/17 16:54 Bedside Glucose 103 mg/dl 157 mg/dl Troponin I < 0.015 ng/ml < 0.015 ng/ml Test 08/16/17 20:42 08/17/17 06:51 08/17/17 07:12 Bedside Glucose 175 mg/dl 112 mg/dl White Blood Count 12.36 K/uL Red Blood Count 3.23 M/uL Hemoglobin 9.4 g/dL Hematocrit 27.5 % Mean Corpuscular Volume 85.1 fL Mean Corpuscular Hemoglobin 29.1 pg Mean Corpuscular Hemoglobin Concent 34.2 g/dl Platelet Count 158 K/uL Mean Platelet Volume 9.1 fL Neutrophils (%) (Auto) 77.4 % Lymphocytes (%) (Auto) 11.5 % Monocytes (%) (Auto) 10.4 % Eosinophils (%) (Auto) 0.1 % Basophils (%) (Auto) 0.1 % Neutrophils # (Auto) 9.58 K/uL Lymphocytes # (Auto) 1.42 K/uL Monocytes # (Auto) 1.28 K/uL Eosinophils # (Auto) 0.01 K/uL Basophils # (Auto) 0.01 K/uL RDW Standard Deviation 42.2 fL RDW Coefficient of Variation 13.5 % Immature Granulocyte % (Auto) 0.5 % Immature Granulocyte # (Auto) 0.06 K/uL Sodium Level 137 mmol/L Potassium Level 3.9 mmol/L Chloride Level 106 mmol/L Carbon Dioxide Level 22 mmol/L Anion Gap 10.0 mmol/L Blood Urea Nitrogen 36 mg/dl Creatinine 2.16 mg/dl Est Creatinine Clear Calc Drug Dose 43.4 ml/min Estimated GFR () 37.2 Estimated GFR (Non- 32.1 BUN/Creatinine Ratio 16.7 Random Glucose 90 mg/dl Calcium Level 7.8 mg/dl Magnesium Level 2.1 mg/dl Patient Name: PATRICIA CALVILLO Unit Number: [id number] Dictated: 08/16/171613 Transcribed: 08/16/171613 ADINA Printed Date/Time: [~ rep prt dt]/[~ rep prt tm] [~ rep ct labl] - [~ rep ct ivnm] [facility] [place] [place] [address] Dictated: 08/16/171613 Transcribed: 08/16/171613 ADINA Printed Date/Time: [~ rep prt dt]/[~ rep prt tm] [~ rep ct labl] - [~ rep ct ivnm] Patient: PATRICIA CALVILLO Address1: [address] [facility] Rec: [id number] Address2: Acct ID: [id number] [facility] Zip: [place] [id number] Date: 1955 Sex: M Room/Bed: S242-1 Ref Phy: Chele Cullen M.D. SC: C.2T Att Phy: Lamberto Carey MD Report #: [id number] Kimmy Phy: Chele Cullen M.D. Test: TWOC Admit Phy: Lamberto Carey MD Career Services Representative: [employer] Interpreting Phy: Jamil Reyes MD Diagnosis: RIGHT SIDED CHEST PAIN Ordering Phy: Lamberto Carey MD Service Date: 08/16/17 Admit Date: 08/14/1800/06/18 MNE: [id number] CONF: DICTATED BY: Jamil Reyes MD]] CC: Lamberto Carey MD Rozick, Mark S., M.D. Endcc: [~ rep ct add3]] MRI OF THE THORACIC SPINE WITHOUT CONTRAST CLINICAL HISTORY: Urinary tract infection with sepsis. Back pain. Evaluate for evidence of discitis. COMPARISON: None. TECHNIQUE: Utilizing a 1.5 Lurdes magnet and dedicated coil, multiplanar, multiecho imaging of the thoracic spine was performed without IV contrast. FINDINGS: Alignment of the thoracic spine is anatomic. Vertebral body heights are maintained. There is no suspicious marrow replacement. There is no marrow edema. There is no evidence for discitis by MRI. No intracanalicular mass or fluid collection is present. Thoracic cord signal and caliber are normal. There are several small disc protrusions that result in mild narrowing of the central canal. The neural foramen are patent. No paraspinal fluid collection is identified. IMPRESSION: 1. No acute abnormality within the MRI by thoracic spine. No evidence for discitis. No epidural abscess. 2. Mild multilevel degenerative disc disease with several small disc protrusions. Electronically signed by: Jamil Reyes M.D. 08/16/2017 4:20 PM Dictated Date/Time: 08/16/2017 4:14 PM The status of this report is Signed. Draft = Not yet reviewed or approved by Radiologist. Signed = Reviewed and approved by Radiologist. <AttendingPhy>Lamberto Carey MD</AttendingPhy> <FamilyPhy>Chele Cullen M.D.</FamilyPhy> <PrimaryPhy>Chele Cullen M.D.</PrimaryPhy> <UnitNumber> [id number]</UnitNumber> <VisitNumber>[id number]</VisitNumber> <PatientName> CHELSEYPATRICIA MENDOZA Grisel</PatientName> <DateOfBirth>1955</DateOfBirth> <Location >C.2T</Location> <ServiceDate>08/14/17</ServiceDate> <MNE>ESINDI</MNE> < OrderingPhy>Lamberto Carey MD</OrderingPhy> <OrderingPhyMNE>f rep ord dr galvan </OrderingPhyMNE> <DictatingPhyMNE>f rep dict dr galvan</DictatingPhyMNE> < CCListMNE>f rep ct mne</CCListMNE> <AdmittingPhyMNE>f pt admit dr galvan</ AdmittingPhyMNE> <AttendingPhyMNE>f pt attend dr galvan</AttendingPhyMNE> <ConsultingPhyMNE>f pt consult dr galvan</ConsultingPhyMNE> <FamilyPhyMNE>f pt fam dr galvan</FamilyPhyMNE> <OtherPhyMNE>f pt other dr galvan</OtherPhyMNE> < PrimaryPhyMNE>f pt prim care dr galvan</PrimaryPhyMNE> <ReferringPhyMNE>f pt referring dr galvan</ReferringPhyMNE> Patient Name: SHREYA CALVILLOONY Grisel Unit Number: [id number] Dictated: 08/16/17 123 Transcribed: 08/16/17 123 JA Printed Date/Time: [~ rep prt dt]/[~ rep prt tm] [~ rep ct labl] - [~ rep ct ivnm] [facility] [place] [address] Dictated: 08/16/17 1232 Transcribed: 08/16/17 1232 Printed Date/Time: [~ rep prt dt]/[~ rep prt tm] [~ rep ct labl] - [~ rep ct ivnm] Patient: PATRICIA CALVILLO Address1: [address] [place] [address] Rec: [id number] Address2: Acct ID: [id number] [facility] Zip: [place] [address] Date: 1955 Sex: M Room/Bed: S242-1 Ref Phy: Chele Cullen M.D. SC: C.2T Att Phy: Lamberto Carey MD Report #: [id number] Kimmy Phy: Chele Cullen M.D. Test: LSWOC Admit Phy: Lamberto Carey MD Career Services Representative: [facility] Interpreting Phy: Jamil Reyes MD Diagnosis: RIGHT SIDED CHEST PAIN Ordering Phy: Alphonso Roy Service Date: 08/16/17 Admit Date: 08/14/1800/06/18 MNE: [id number] CONF: DICTATED BY: Jamil Reyes MD]] CC: Lamberto Carey MD Reichert, Michael S., PA- Chele Cullen M.D. Endcc: [~ rep ct add3]] MRI OF THE LUMBAR SPINE WITHOUT CONTRAST CLINICAL HISTORY: Back pain. Urinary infection with sepsis. COMPARISON STUDY: Lumbar spine radiographs September 28, 2009. TECHNIQUE: Utilizing a 1.5 Lurdes magnet and dedicated coil, multiplanar, multiecho imaging of the lumbar spine was performed without IV contrast. FINDINGS: For purposes of numbering on this exam, the L5-S1 disc space is assigned to axial image 23 of 25. No intracanalicular mass or fluid collection is present. Incidental note is made of a fatty filum terminale. Conus terminates at the upper L1 level. Paravertebral soft tissues are unremarkable. A T2 hyperintense right renal lesion was shown to reflect a cyst on ultrasound of August 14, 2017. There is no intracanalicular mass or fluid collection. There is no evidence for discitis. L1-2: There is mild disc bulge and facet arthrosis. There is mild to moderate narrowing of the central canal and lateral recesses with mild during of both neural foramen. L2-3: There is minimal disc bulge and facet arthrosis. Central canal and neural foramen are patent. L3-4: There is disc bulge with ligamentous hypertrophy and facet arthrosis that result in mild to moderate narrowing of the central canal, lateral recesses and neural foramen. L4-5: There is disc bulge with a small superimposed central disc protrusion. There is mild narrowing of the central canal and lateral recesses as well as mild narrowing of both neural foramen. L5-S1: There is a central annular tear with tiny disc protrusion. Central canal and neural foramen are patent. IMPRESSION: 1. No acute abnormality within the lumbar spine by MRI. 2. Multilevel degenerative disc disease and facet arthrosis within the lumbar spine that results in mild to moderate narrowing of the central canal and neural foramen, as described above. Electronically signed by: Jamil Reyes M.D. 08/16/2017 12:37 PM Dictated Date/Time: 08/16/2017 12:32 PM The status of this report is Signed. Draft = Not yet reviewed or approved by Radiologist. Signed = Reviewed and approved by Radiologist. <AttendingPhy>Lamberto Carey MD</AttendingPhy> <FamilyPhy>Chele Cullen M.D.</FamilyPhy> <PrimaryPhy>Chele Cullen M.D.</PrimaryPhy> <UnitNumber> [id number]</UnitNumber> <VisitNumber>[id number]</VisitNumber> <PatientName> PATRICIA CALVILLO</PatientName> <DateOfBirth>1955</DateOfBirth> <Location >C.2T</Location> <ServiceDate>08/14/17</ServiceDate> <MNE>ESINDI</MNE> < OrderingPhy>Alphonso Roy</OrderingPhy> <OrderingPhyMNE>f rep ord dr galvan</OrderingPhyMNE> <DictatingPhyMNE>f rep dict mne</DictatingPhyMNE> < CCListMNE>f rep ct mne</CCListMNE> <AdmittingPhyMNE>f pt admit dr galvan</ AdmittingPhyMNE> <AttendingPhyMNE>f pt attend dr galvan</AttendingPhyMNE> <ConsultingPhyMNE>f pt consult dr galvan</ConsultingPhyMNE> <FamilyPhyMNE>f pt fam dr galvan</FamilyPhyMNE> <OtherPhyMNE>f pt other dr galvan</OtherPhyMNE> < PrimaryPhyMNE>f pt prim care dr galvan</PrimaryPhyMNE> <ReferringPhyMNE>f pt referring dr galvan</ReferringPhyMNE> Assessment & Plan Assessment: Thoracolumbar pain with degenerative changes, possible spasms:, no signs of infection, osteomyelitis or discitis on thoracic and lumbar MRIs Plan: Imaging is also been reviewed but with Dr. Stein. Current plan is pain control. Activity as tolerated. Again, there is no sign of epidural abscess, osteomyelitis, discitis or gross infection that would be contributing to his pain or his sepsis. We will sign off for now. Please do not hesitate to contact with any further issues.
--- NOTE | 2017-08-17 10:42 | INFECT. DISEASE CONSULTATION ---
DATE OF CONSULTATION: 08/17/2017 HISTORY OF PRESENT ILLNESS: This is a 62-year-old gentleman who was admitted to the hospital for right-sided chest pain. He does have a history of an aortic aneurysm and he was concerned for dissection. A CT was done in the ER and was negative for PE or dissection. He also had a CAT scan of the abdomen and pelvis and a gallbladder ultrasound. This was essentially negative; however, it was a noncontrast study. He did have a complex renal cyst, but otherwise this was unremarkable. He did have a leukocytosis on admission of 13,000, this went up to 15,000, and now is 12.2 today. He was started empirically on vancomycin, Zosyn and azithromycin. On the , he had a T-max of 38.4 and on the , he had a T-max of 38.2. He has been afebrile since then. Blood and urine cultures were obtained as part of his initial workup. His blood cultures this morning are growing gram-positive cocci in 2/2 sets. His urine culture has MSSA; however, his urinalysis was remarkable for greater than 30 wbc's and +2 bacteria. A flu swab was negative. He does not admit to any urinary symptoms. He states that he is continuing to have chest pain, but states overall this has improved. He was also having back pain and MRIs of both thoracic and lumbar spine were obtained over the weekend and are negative for osteomyelitis or fluid collection. Repeat blood cultures have not been obtained. An echocardiogram was done on the and this was negative for endocarditis. He does have a history of diabetes with neuropathy and he states he essentially has no feeling in his feet. He has a chronic wound on the left foot at the first MTP, which he states resulted after he saw a open end spinning operator and had a callus removed. For the past 3 months, he states this has been bleeding and draining off and on. He has not been on antibiotics for this. He has not sought any care for this. He denies any pain in the area, but also has neuropathy. He states that at times, his first joint is significantly swollen. His remaining review of systems is unremarkable. ALLERGIES: He has no known drug allergies. PAST MEDICAL HISTORY: Significant for hypertension, type 2 diabetes with neuropathy, thoracic aortic aneurysm. PAST SURGICAL HISTORY: Significant for heart catheterization, femoral artery revascularization, stent placement, angioplasty, and rotator cuff repair. FAMILY HISTORY: Noncontributory. SOCIAL HISTORY: Negative for tobacco use, alcohol use or drug use. MEDICATIONS: Include baclofen, azithromycin, Atrovent, Xopenex, Dilaudid, Lantus, vancomycin, Zosyn, promethazine, Norvasc, Ecotrin, Lipitor, vitamin D, Plavix, Coreg, Hytrin, hydralazine, Tylenol, Maalox, Zofran. PHYSICAL EXAMINATION: VITAL SIGNS: He is currently afebrile, pulse 71, respiratory rate 18, blood pressure 144/61, oxygen saturation is 97% on room air. GENERAL: He is awake, alert and oriented x3. He is in no acute distress. HEENT: Mucous membranes are moist. Extraocular muscles are intact. HEART: Regular. I do not auscultate a murmur. LUNGS: Clear bilaterally. ABDOMEN: Soft, nontender, nondistended. EXTREMITIES: There is no lower extremity edema. Examination of the foot reveals a wound on the first MTP joint, this is open. I am unable to express any purulent material. There is no bleeding; however, there is evidence of dried blood on the skin. There is no joint swelling. There is no tenderness; however, the patient does have significant neuropathy. LABORATORY STUDIES: CBC today reveals a white blood cell count of 12.3, hemoglobin 9.4, platelets are 158. Chemistry panel reveals a sodium of 137, potassium 3.9, chloride 106, bicarbonate 22, BUN 36, creatinine 2.1, glucose is 112. LFTs were normal on admission. Urinalysis had greater than 30 wbc's and +2 bacteria. Flu swab is negative. Blood cultures from the 6th are growing gram-positive cocci in 2/2 sets. Urine culture is growing MSSA. IMAGING STUDIES: As above. ASSESSMENT AND PLAN: Likely staph septicemia, we will await final identification. Repeat blood cultures will be obtained. To date, no source of metastatic infection has been found. He has had negative lumbar and thoracic MRIs as well as a negative echocardiogram. I am concerned that his foot ulceration is likely the source for his infection and additional imaging should be obtained to rule out osteomyelitis of the foot. I would recommend MRI. We will repeat blood cultures today. We will keep him on vancomycin and await identification and final sensitivities of the gram-positive cocci from blood cultures. His Zosyn and azithromycin will be discontinued. We will follow along with you. Thank you for this consultation.
[2017-08-17] MEDS: BACLOFEN 10 MG TAB PO PRN ×3 (11:06→22:50)
--- NOTE | 2017-08-17 12:40 | Clinical Documentation Query ---
Dr. [facility] : CLINICAL DOCUMENTATION QUERIES QUERY 1 OF 2 Documentation includes the following: Possible sepsis had shaking and temp spike leukocytosis UA positive had urinary retention and on Bernstein started on iv abx iv vancomycin and Zosyn. one of blood cx positive for gm positive cocci\\continue currenrt abx Please document the admission status of this diagnosis as it affects DRG assignment. In your clinical opinion is this patient being managed for: ( ) Sepsis secondary to MSSA UTI, GPC septicemia, POA ( ) Not Agree ( ) Other explanation of clinical findings (Please Explain) ( ) Unable to determine (Please Define) ( ) Need to Discuss The medical record reflects the following clinical findings, treatment, and risk factors. Clinical Indicators: As above Treatment: Blood, urine cultures, ID consultation, IV antibiotics Risk Factors: UTI, foot ulcer QUERY 2 OF 2 H&P notes a history of diabetes and PVD. ID documentation (08/17) includes that of a foot wound on the first MTP joint, open. There is no documentation of etiology or existence of this wound prior to hospital day 4. Please explicitly document the etiology and POA status of this wound. In your clinical opinion is this patient being managed for: ( ) Type 2 diabetes mellitus with foot ulcer, POA ( ) Not Agree ( ) Other explanation of clinical findings (Please Explain) ( ) Unable to determine (Please Define) ( ) Need to Discuss The medical record reflects the following clinical findings, treatment, and risk factors. Clinical Indicators: As above Treatment: ID consultation, IV antibiotics Risk Factors: Age, diabetes, PVD, neuropathy Please clarify and document your clinical opinion in the progress notes and discharge summary. Terms such as "probable", "suspected", "likely", "questionable", "possible", or "still to be ruled out" are acceptable. IF IN AGREEMENT, YOU MUST DOCUMENT ABOVE DIAGNOSTIC STATEMENT IN DAILY PROGRESS NOTES AND DISCHARGE SUMMARY. This document is not part of the patient's record. Thank You, Adiel Rush, MICHELET [phone]
--- NOTE | 2017-08-17 14:02 | DIAGNOSTIC IMAGING REPORT ---
L LOWER EXT NONJOINT W/O CLINICAL HISTORY: LEFT BIG TOE OSTEOMYELITIS? Pain TECHNIQUE: Multi axial acquisition COMPARISON STUDY: None FINDINGS: Signal characteristics of the osseous structures are unremarkable. Mild degenerative changes of the interphalangeal joints throughout. There is no significant bone marrow replacing process. No evidence for abscess or collection. All major ligamentous and tendinous structures are intact. IMPRESSION: 1. Mild degenerative change of the interphalangeal joints. 2. No evidence for abscess, collection, or osteomyelitis by MRI criteria. The above report was generated using voice recognition software. It may contain grammatical, syntax or spelling errors. Electronically signed by: Chele Ojeda M.D. 08/17/2017 2:01 PM Dictated Date/Time: 08/17/2017 1:56 PM
--- NOTE | 2017-08-17 14:13 | Pain Management Consultation ---
Pain Management Consultation Date of Consultation Aug 17, 2017. Reason for Consultation Right flank and chest pain Pain Location 1 - 2 - History 62-year-old male with past medical history significant for hypertension, diabetes, thoracic aortic aneurysm, dyspnea on exertion,chronic kidney disease stage III, recurrent UTI, peripheral arterial disease who presented to the emergency room on 08/14/2017 with chest pain and abdominal pain. Pain management was consult a to assist with right flank and chest pain. He reports that he is having a deep aching feeling like he got hit with a baseball bat pain over his right thoracic paravertebral spinous musculature. He notes that pain is not worsened with deep inspiration coughing , movement. He reports that pain is present much constant all the time and is minimally diminished with IV hydromorphone. He reports pain ranges from 6-10 out of 10. He has had an extensive workup during this hospitalization including a thoracic and lumbar spine MRI which showed minimal multilevel degenerative changes, gallbladder ultrasound, CT of the chest all with no definitive diagnosis of his pain. These imaging results are listed below. Incidentally he notes a left ulcer on the ventral side of his left great toe. He reports that a few weeks ago his spray technician was filing a callus and his had a wound in the area since that time. Past Medical/Surgical History (1) Right-sided chest pain (2) Chest pain (3) Sepsis (4) Diabetes (5) HTN (hypertension) (6) Headache (7) Non-traumatic subconjunctival hemorrhage of left eye Family History Family Hx Review: history personally reviewed by me Social / Work History Smokeless Tobacco Use: No Drug Use: none Marital Status: Allergies Coded Allergies: Iodinated Diagnostic Agents (Verified Allergy, Unknown, shaking, severe anxiety, 08/14/17) Medications Current Inpatient Medications Medications (Trade) Dose Ordered Sig/Domenic Route Start Time Stop Time Status Last Admin Dose Admin Ioversol (Optiray 320) 100 ml UD PRN IV 08/14/17 05:30 08/18/17 05:29 Acetaminophen (Tylenol Tab) 650 mg Q4H PRN PO 08/14/17 09:45 09/13/17 09:44 08/16/17 08:04 650 MG Al Hydrox/Mg Hydrox/Simethicone (Maalox Max Susp) 15 ml Q4H PRN PO 08/14/17 09:45 09/13/17 09:44 Ondansetron HCl (Zofran Inj) 4 mg Q6H PRN IV 08/14/17 09:45 09/13/17 09:44 08/16/17 07:52 4 MG Nitroglycerin (Nitrostat Tab) 0.4 mg UD PRN SL 08/14/17 09:45 09/13/17 09:44 Amlodipine Besylate (Norvasc Tab) 10 mg DAILY PO 08/15/17 09:00 09/14/17 08:59 08/17/17 07:49 10 MG Aspirin (Ecotrin Tab) 81 mg DAILY PO 08/15/17 09:00 09/14/17 08:59 08/17/17 07:48 81 MG Atorvastatin Calcium (Lipitor Tab) 40 mg DAILY PO 08/15/17 09:00 09/14/17 08:59 08/17/17 07:48 40 MG Carvedilol (Coreg Tab) 37.5 mg BID PO 08/14/17 21:00 09/13/17 20:59 08/17/17 07:47 37.5 MG Cholecalciferol (Vitamin D Tab) 4,000 inter.unit DAILY PO 08/15/17 09:00 09/14/17 08:59 08/17/17 07:49 4,000 INTER.UNIT Clopidogrel Bisulfate (plAVix TAB) 75 mg DAILY PO 08/15/17 09:00 09/14/17 08:59 08/17/17 07:50 75 MG Hydralazine HCl (Apresoline Tab) 50 mg TID PO 08/14/17 14:00 09/13/17 13:59 08/17/17 07:46 50 MG Terazosin HCl (Hytrin Cap) 4 mg HS PO 08/14/17 21:00 09/13/17 20:59 08/16/17 20:14 4 MG Glucose (Glucose 40% Gel) 15-30 GRAMS 15 GRAMS... UD PRN PO 08/14/17 12:00 09/13/17 11:59 Glucose (Glucose Chew Tab) 4-8 Tablets 4 Tabl... UD PRN PO 08/14/17 12:00 09/13/17 11:59 Dextrose (Dextrose 50% 50ML Syringe) 25-50ML OF 50% DW IV FOR... UD PRN IV 08/14/17 12:00 09/13/17 11:59 Glucagon (Glucagon Inj) 1 mg UD PRN SQ 08/14/17 12:00 09/13/17 11:59 Miscellaneous (Iv Fluids Completed) 1 ea PRN PRN N/A 08/14/17 12:45 08/14/18 12:44 Insulin Aspart (novoLOG ASPART) SLIDING SCALE G... ACHS SC 08/15/17 07:00 09/13/17 10:59 08/17/17 12:15 2 UNITS Promethazine HCl 12.5 mg/Sodium Chloride 50.5 ml @ 204 mls/hr Q6H PRN IV 08/15/17 11:30 09/14/17 11:29 Vancomycin HCl (Consult) 1 ea UD PRN N/A 08/15/17 14:30 09/14/17 14:29 Vancomycin HCl 1500 mg/Sodium Chloride 530 ml @ 200 mls/hr Q18H IV 08/16/17 08:00 08/26/17 07:59 08/17/17 02:33 200 MLS/HR Insulin Glargine (Lantus Solostar Pen) 34 units BID SC 08/16/17 09:00 09/13/17 20:59 08/17/17 07:52 34 UNITS Hydromorphone HCl (Dilaudid Inj) 1 mg Q3HWA PRN IV 08/16/17 09:15 08/28/17 09:44 08/17/17 11:07 1 MG Ipratropium [place] (Atrovent 0.02% 0.5MG/2.5ML Neb) 0.5 mg Q2R PRN INH 08/16/17 09:30 09/15/17 09:29 08/16/17 09:35 0.5 MG Levalbuterol (Xopenex 1.25MG/ 0.5ML Neb) 1.25 mg Q2R PRN INH 08/16/17 09:30 09/15/17 09:29 08/16/17 09:35 1.25 MG Sodium Chloride 1,000 ml @ 100 mls/hr Q10H IV 08/16/17 11:00 09/15/17 10:59 08/17/17 07:46 100 MLS/HR Baclofen (Lioresal Tab) 10 mg TID PRN PO 08/17/17 09:15 09/16/17 09:14 08/17/17 11:06 10 MG Review of Systems 10 point review of systems was otherwise negative aside from HPI Physical Exam Height & Weight: Height 6 feet, 0.00 inches. Weight 94.500 (Kilograms) 208 (Pounds) Last Vital Signs Documentation Date Time Temp Pulse Resp B/P (MAP) Pulse Ox O2 Delivery O2 Flow Rate FiO2 08/17/17 12:00 95 Room Air 08/17/17 11:52 36.8 65 16 141/70 (93) 08/17/17 04:30 4.0 Exam: GENERAL: 62-year-old male who is awake, alert and oriented. Appears well developed. Is in no distress at the present time. He is accompanied by his cousin on today's examination PSYCHIATRIC: Demonstrates normal and clear sensorium. Mood and affect are appropriate. Short-term and long-term memory is intact. HEAD AND NECK: No obvious trauma. Demonstrates full range of motion of the cervical spine. No lymphadenopathy is noted. Trachea midline. EARS, EYES AND NOSE: Mucous membranes pink and moist. No mucosal lesions noted. Tongue midline. LUNGS: Clear to auscultation in all lung gabriel. Normal chest excursion. He does not have tenderness to AP compression. He has normal rib motion. No audible wheezing or rhonchi CARDIAC: Regular rate and rhythm ABDOMEN: Normal bowel sounds. Soft nontender. No organomegaly appreciated. BACK: Inspection of the lumbar spine demonstrates normal curvatures. No lesions are noted in the lumbar spine region. He has significant myofascial tenderness or trigger points identifiable in the right thoracic paraspinous musculature. There does not appear to be any tenderness with deep palpation of rib heads. No costochondral tenderness is noted bilaterally. NEUROLOGICAL: Cranial nerves II through XII grossly intact. No gross sensory or motor deficits noted in the upper extremity. Sensation and motor strength in the lower extremity are symmetrical without deficit. No pathologic reflexes are noted in the lower extremities. Gait is not observed. EXTREMITIES: He has a large ulcer over his left ventral great toe Laboratory Laboratory Results (Last CBC): 08/17/17 07:12 Red Blood Count 3.23 L, Mean Corpuscular Volume 85.1, Mean Corpuscular Hemoglobin 29.1, Mean Corpuscular Hemoglobin Concent 34.2, Mean Platelet Volume 9.1, Neutrophils (%) (Auto) 77.4, Lymphocytes (%) (Auto) 11.5, Monocytes (%) ( Auto) 10.4, Eosinophils (%) (Auto) 0.1, Basophils (%) (Auto) 0.1, Neutrophils # (Auto) 9.58 H, Lymphocytes # (Auto) 1.42, Monocytes # (Auto) 1.28 H, Eosinophils # (Auto) 0.01, Basophils # (Auto) 0.01 Preliminary Urine culture reveals staph aureus Preliminary Blood culture reveals gram-positive cocci and group B strep Imaging MRI: reports reviewed MRI Findings Patient: PATRICIA CALVILLO Address1: [address] [place] [address] Rec: [id number] Address2: Acct ID: [id number] [facility] Zip: [place] [address] Date: 1955 Sex: M Room/Bed: [facility] Ref Phy: Chele Cullen M.D. SC: [email or web address] Att Phy: Lamberto Carey MD Report #: [id number] Kimmy Phy: Chele Cullen M.D. Test: TWOC Admit Phy: Lamberto Craey MD Data Processing Specialist: [facility] Interpreting Phy: Jamil Reyes MD Diagnosis: RIGHT SIDED CHEST PAIN Ordering Phy: Lamberto Carey MD Service Date: 08/16/17 Admit Date: 08/14/1800/06/18 MNE: [id number] CONF: DICTATED BY: Jamil Reyes MD]] CC: Lamberto Carey MD Rozick, Mark S., M.D. Endcc: [~ rep ct add3]] MRI OF THE THORACIC SPINE WITHOUT CONTRAST CLINICAL HISTORY: Urinary tract infection with sepsis. Back pain. Evaluate for evidence of discitis. COMPARISON: None. TECHNIQUE: Utilizing a 1.5 Lurdes magnet and dedicated coil, multiplanar, multiecho imaging of the thoracic spine was performed without IV contrast. FINDINGS: Alignment of the thoracic spine is anatomic. Vertebral body heights are maintained. There is no suspicious marrow replacement. There is no marrow edema. There is no evidence for discitis by MRI. No intracanalicular mass or fluid collection is present. Thoracic cord signal and caliber are normal. There are several small disc protrusions that result in mild narrowing of the central canal. The neural foramen are patent. No paraspinal fluid collection is identified. IMPRESSION: 1. No acute abnormality within the MRI by thoracic spine. No evidence for discitis. No epidural abscess. 2. Mild multilevel degenerative disc disease with several small disc protrusions. Patient: PATRICIA CALVILLO Address1: [address] [place] [address] Rec: [id number] Address2: Acct ID: [id number] [facility] Zip: [place] [address] Date: 1955 Sex: M Room/Bed: S242-1 Ref Phy: Chele Cullen M.D. SC: FabianoT Att Phy: Lamberto Carey MD Report #: [id number] Kimmy Phy: Chele Cullen M.D. Test: LSWOC Admit Phy: Lamberto Carey MD Data Processing Specialist: [facility] Interpreting Phy: Jamil Reyes MD Diagnosis: RIGHT SIDED CHEST PAIN Ordering Phy: Alphonso Roy Service Date: 08/16/17 Admit Date: 08/14/1800/06/18 MNE: [email or web address] CONF: DICTATED BY: Jamil Reyes MD]] CC: Lamberto Carey MD Reichert, Michael S., BABAK-C Chele Cullen M.D. Endcc: [~ rep ct add3]] MRI OF THE LUMBAR SPINE WITHOUT CONTRAST CLINICAL HISTORY: Back pain. Urinary infection with sepsis. COMPARISON STUDY: Lumbar spine radiographs September 28, 2009. TECHNIQUE: Utilizing a 1.5 Lurdes magnet and dedicated coil, multiplanar, multiecho imaging of the lumbar spine was performed without IV contrast. FINDINGS: For purposes of numbering on this exam, the L5-S1 disc space is assigned to axial image 23 of 25. No intracanalicular mass or fluid collection is present. Incidental note is made of a fatty filum terminale. Conus terminates at the upper L1 level. Paravertebral soft tissues are unremarkable. A T2 hyperintense right renal lesion was shown to reflect a cyst on ultrasound of August 14, 2017. There is no intracanalicular mass or fluid collection. There is no evidence for discitis. L1-2: There is mild disc bulge and facet arthrosis. There is mild to moderate narrowing of the central canal and lateral recesses with mild during of both neural foramen. L2-3: There is minimal disc bulge and facet arthrosis. Central canal and neural foramen are patent. L3-4: There is disc bulge with ligamentous hypertrophy and facet arthrosis that result in mild to moderate narrowing of the central canal, lateral recesses and neural foramen. L4-5: There is disc bulge with a small superimposed central disc protrusion. There is mild narrowing of the central canal and lateral recesses as well as mild narrowing of both neural foramen. L5-S1: There is a central annular tear with tiny disc protrusion. Central canal and neural foramen are patent. IMPRESSION: 1. No acute abnormality within the lumbar spine by MRI. 2. Multilevel degenerative disc disease and facet arthrosis within the lumbar spine that results in mild to moderate narrowing of the central canal and neural foramen, as described above. CT: reports reviewed CT Findings Patient: PATRICIA CALVILLO Address1: [address] [place] [address] Rec: [id number] Address2: Acct ID: [id number] [facility] Zip: [place] [address] Date: 1955 Sex: M Room/Bed: S242-1 Ref Phy: Chele Cullen M.D. SC: C.2T Att Phy: Lamberto Carey MD Report #: [id number] Kimmy Phy: Chele Cullen M.D. Test: CXWO Admit Phy: Lamberto Carey MD Data Processing Specialist: [facility] Interpreting Phy: Jamil Reyes MD Diagnosis: RIGHT SIDED CHEST PAIN Ordering Phy: Lamberto Carey MD Service Date: 08/16/17 Admit Date: 08/14/1800/06/18 MNE: [id number] CONF: DICTATED BY: Jamil Reyes MD]] CC: Lamberto Carey MD Rozick, Mark S., M.D. Endcc: [~ rep ct add3]] CT OF THE CHEST WITHOUT IV CONTRAST CLINICAL HISTORY: Hypoxia. Right-sided chest pain. COMPARISON STUDY: Chest CT August 14, 2017 and chest radiograph August 15, 2017. CT DOSE: 690.31 mGy.cm TECHNIQUE: Axial images of the chest were obtained without IV contrast. Images were reviewed in the axial, sagittal, and coronal planes. IV contrast was not administered for this examination. A dose lowering technique was utilized adhering to the principles of ALARA. FINDINGS: No enlarged axillary, mediastinal or hilar lymph nodes are present. There is mild dilatation of the ascending aorta which measures 4 cm. There is extensive coronary artery calcification. There is no significant pericardial effusion. Small right and trace left pleural effusions are noted. Interlobular septal thickening suggests mild pulmonary edema. There is no consolidation to suggest pneumonia. Lungs are suboptimally assessed due to respiratory motion artifact. No suspicious osseous lesions within the bony thorax are noted. Visualized portions of the upper abdomen demonstrate a partially visualized mildly enlarged right retrocaval lymph node that measures 1.1 cm in short axis diameter. IMPRESSION: 1. Small right and trace left pleural effusions. 2. Findings suggestive of mild interstitial edema. No consolidation to suggest pneumonia. 3. Mildly enlarged nonspecific right retrocaval lymph node. Other Findings Patient: PATRICIA CALVILLO Address1: [address] [place] [address] Rec: [id number] [facility] [id number] Zip: [place] [address] Date: 1955 Sex: M Room/Bed: Ref Phy: Chele Cullen M.D. SC: CHRISTIANA Att Phy: Report #: [id number] Kimmy Phy: Chele Cullen M.D. Test: GB Admit Phy: Data Processing Specialist: [facility]IPL[employer] Interpreting Phy: Wyatt Valladares MD Diagnosis: CHEST PAIN Ordering Phy: Ernst Feliz M.D. Service Date: 08/14/17 Admit Date: 08/14/17 MNE: [email or web address] CONF: DICTATED BY: Wyatt Valladares MD]] CC: Bill Laura, DO Tray, Ernst F., M.D. Rozick, Chele S.,M.D. Endcc: [~ rep ct add3]] GALLBLADDER-ABD LIMITED CLINICAL HISTORY: 62 years-old Male presenting with rt CP, elevated bili, eval GB (and rt kidney if possible). TECHNIQUE: Real-time grayscale and limited color Doppler ultrasound imaging of the abdomen limited to the right upper quadrant was performed. COMPARISON: CT from 08/21/2011. FINDINGS: Pancreas: Visualized portions of the pancreatic head and body normal. Liver: Mildly hyperechogenic parenchyma, although the right hemidiaphragm remains visible, likely indicating mild steatosis. The liver measures 18.3 cm in maximal sagittal dimension. No sonographic evidence of hepatic mass. Main portal vein patent with normal directional flow. Biliary: No intrahepatic biliary ductal dilatation. Common bile duct measures up to 4 mm in diameter. Gallbladder: No evidence of gallstones, gallbladder wall thickening, gallbladder distention, or pericholecystic fluid or inflammatory change. Sonographic Hernandez's sign negative. Right kidney: 5 cm cyst noted, which may contain few thin septations (minimally complex cyst, Bosniak 2). No hydronephrosis. Ascites: None. IMPRESSION: 1. Suggestion of hepatic steatosis. Correlate with liver function tests to exclude steatohepatitis. 2. No cholelithiasis or biliary ductal dilatation. 3. Minimally complex right renal cyst (Bosniak 2). Assessment 1. Right-sided thoracic myofascial pain and spasm 2. Stable thoracic aneurysm 3. Positive urine and blood cultures with possible sepsis 4. Diabetes on insulin 5. Chronic kidney disease stage III 6. Peripheral vascular disease on aspirin and Plavix 7. Left great toe ulcer Recommendations 1. There is no role for interventional pain management at this time as patient has positive urine and blood cultures which preclude intervention. 2. Recommend initiation of baclofen 10 mg by mouth by mouth every 8 when necessary pain and spasm as well as K pad placement. Orders are written 3. Will speak with hospitalist in regards to left great toe ulcer 4. We will follow with the patient tomorrow morning 5. Thank you for this consult
--- NOTE | 2017-08-17 16:34 | Progress Note ---
Internal Med Progress Note Date of Service: Aug 17, 2017. Provider Documentation: SUBJECTIVE: still has chest pain but somewhat better has wound in his right toe sine 2-3 months when callus was removed afebrile no nausea slept ok last night OBJECTIVE: Vital Signs-as noted below Exam: General-alert and oriented. In pain ENT-normal hearing Neck-no neck masses supple Lungs-cta b/l no wheezing or crackles Heart-s1 and s2 heard regular rate and rhythm no murmurs Abdomen-soft bowel sounds present diffuse mild tender no guarding no rigidity no distension Extremities-no edema no erythema Neuro-alert and oriented moves extremities Lab data as noted below. ASSESSMENT & PLAN: This is a 62-year-old male who presents with severe chest pain and abdominal pain.CTA chest, Ct abd/pelvis, MRI of spine, echo unremarkable. Pain mostly from thoracic myofascial pain and spasms as per pain management. Meanwhile patient developed sepsis and bacteremia. Currently on iv vancomycin.Has left first toe chronic wound but no osteomyelitis on MRI. Follow repeat cx. Await urology inputs for urinary retention. Await repeat blood cx. Abx as per ID.pain control. 1. Severe chest pain and abdominal pain, more on the right flank. Imaging studies were unremarkable. Stable thoracic aneurysm.serial ce and echo unremarkable appreciate cardiology inputs still has pain-musculoskeletal has degenerative spine on MRI scans consulted pain management and ortho. pain control. Appreciate pain managements [id number] thoracic myofascial pain and spasm but no intervention recommended as patient has bacteremia. added baclofen. will monitor 2. Abdominal pain CT of the abdomen and pelvis unremarkable. Labs are okay. Gallbladder ultrasound is okay. consulted pain management.Abdominal somewhat better now. 3. sepsis Bacteremia had shaking and temp spike leukocytosis, tachycardia UA positive had urinary retention and on Bernstein started on iv abx iv vancomycin and Zosyn. will stop fluids in am mssa in urine and group B strep in blood has wound in left big toe-mri no osteomyelitis appreciate ID inputs to f/u repeat cx may need picc Hypoxia requiring oxygen Not able to take deep breaths because of pain will f/u abg 08/16/17Ct chest without contrast to rule out any ongoing infection or congestion- unremarkable Urinary retention significant prostatomegaly on ct scan s/p Bernstein on terazosin urology consulted. History of diabetes. Continue Lantus and placed on insulin sliding scale. HBA1c levels. 6.9 . Will monitor History of hypertension. On home medication of Coreg, amlodipine, hydralazine, terazosin. Holding the Lasix for now. We will monitor the blood pressure in the hospital. History of chronic kidney disease stage III, baseline creatinine around 2.2 to 2.3, presented with creatinine of 2.4. We will follow the labs on fluids, holding Lasix and Aldactone. Cr 2.1 today Peripheral vascular disease status post femoral popliteal bypass surgery on aspirin and Plavix. Will continue. Also on statin. History of thoracic aortic aneurysm. CT of the chest shows stable thoracic aortic aneurysm. Needs followup. Deep venous thrombosis prophylaxis. SCDs for now. Disposition. Monitor in tele floor. Expect to discharge home and follow with his family doctor. LEVEL 1 FULL CODE. Vital Signs: Date Time Temp Pulse Resp B/P (MAP) Pulse Ox O2 Delivery O2 Flow Rate FiO2 08/17/17 16:00 97 Room Air 08/17/17 15:39 37.1 67 18 146/69 (94) 91 Room Air 08/17/17 12:00 95 Room Air 08/17/17 11:52 36.8 65 16 141/70 (93) 91 Room Air 08/17/17 08:00 97 Room Air 08/17/17 07:38 36.9 71 18 144/61 (88) 91 Room Air 08/17/17 04:30 36.5 22 161/74 (103) 91 Nasal Cannula 4.0 08/17/17 04:04 Room Air 08/17/17 00:05 37.2 73 18 160/77 (104) 91 3.0 08/17/17 00:02 Room Air 08/16/17 20:00 Room Air 08/16/17 19:36 37.3 75 20 155/65 (95) 90 Nasal Cannula 4.0 Lab Results: Results Past 24 Hours Test 08/16/17 20:42 08/17/17 06:51 08/17/17 07:12 Range/Units Bedside Glucose 175 112 70-99 mg/dl White Blood Count 12.36 4.8-10.8 K/uL Red Blood Count 3.23 4.7-6.1 M/uL Hemoglobin 9.4 14.0-18.0 g/dL Hematocrit 27.5 42-52 % Mean Corpuscular Volume 85.1 80-100 fL Mean Corpuscular Hemoglobin 29.1 25-34 pg Mean Corpuscular Hemoglobin Concent 34.2 32-36 g/dl Platelet Count 158 130-400 K/uL Mean Platelet Volume 9.1 7.4-10.4 fL Neutrophils (%) (Auto) 77.4 % Lymphocytes (%) (Auto) 11.5 % Monocytes (%) (Auto) 10.4 % Eosinophils (%) (Auto) 0.1 % Basophils (%) (Auto) 0.1 % Neutrophils # (Auto) 9.58 1.4-6.5 K/uL Lymphocytes # (Auto) 1.42 1.2-3.4 K/uL Monocytes # (Auto) 1.28 0.11-0.59 K/uL Eosinophils # (Auto) 0.01 0-0.5 K/uL Basophils # (Auto) 0.01 0-0.2 K/uL RDW Standard Deviation 42.2 36.4-46.3 fL RDW Coefficient of Variation 13.5 11.5-14.5 % Immature Granulocyte % (Auto) 0.5 % Immature Granulocyte # (Auto) 0.06 0.00-0.02 K/uL Sodium Level 137 136-145 mmol/L Potassium Level 3.9 3.5-5.1 mmol/L Chloride Level 106 98-107 mmol/L Carbon Dioxide Level 22 21-32 mmol/L Anion Gap 10.0 3-11 mmol/L Blood Urea Nitrogen 36 7-18 mg/dl Creatinine 2.16 0.60-1.40 mg/dl Est Creatinine Clear Calc Drug Dose 43.4 ml/min Estimated GFR () 37.2 Estimated GFR (Non- 32.1 BUN/Creatinine Ratio 16.7 10-20 Random Glucose 90 70-99 mg/dl Calcium Level 7.8 8.5-10.1 mg/dl Magnesium Level 2.1 1.8-2.4 mg/dl Microbiology Results 08/17/17 Blood Culture, Received Pending 08/17/17 Blood Culture, Received Pending
[2017-08-17] MEDS ORDERED: VANCOMYCIN TROUGH ONE (19:30)
[2017-08-17] MEDS: LEVALBUTEROL 1.25MG/0.5ML NEB INH PRN (20:33)
[2017-08-17] MEDS: IPRATROPIUM BROMIDE NEB SOLN 0.02% 2.5 ML VIAL INH PRN (20:33)
--- NOTE | 2017-08-17 20:36 | Pharmacy Progress Note ---
Pharmacy Abx Dose Short Note Date of Service Aug 17, 2017. Assessment & Plan Assessment 62 year old male receiving vancomycin for treatment of UTI/bacteremia Day # 3 of antimicrobial therapy. Plan Vancomycin * Trough level of 17.6 mcg/mL is therapeutic * Continue dose of 1500 mg IV every 18 hours (0200 dose was hung 30 mins late but do not believe that this affected trough terribly) * Goal trough level for bacteremia : 15 to 20 mcg/mL * Re-order trough based upon kidney function and end goal of treatment Pharmacy will continue to follow and will adjust dose/frequency as necessary. Thank you.
[2017-08-17] MEDS: ACETAMINOPHEN 325 MG TAB PO PRN (22:52)
[2017-08-18] VITALS (7 sets, daily range): BP systolic 117–170; BP diastolic 62–88; PULSE 59–74; TEMP 36.5–37.1; O2SAT 91–100
[2017-08-18] MEDS: ONDANSETRON INJ 2 MG/ML 2 ML VIAL IV PRN ×2 (03:15→12:03)
[2017-08-18] MEDS: HYDROmorphone INJ 1 MG/ML SYR IV PRN ×2 (03:16→20:37)
[2017-08-18] MEDS: INSULIN ASPART 100 UNITS/ML 3 ML PEN SC SCH ×4 (06:58→20:56)
[2017-08-18] MEDS: ASPIRIN 81 MG ECTAB PO SCH (08:14)
[2017-08-18] MEDS: CHOLECALCIFEROL 1000 INTER.UNIT TAB PO SCH (08:15)
[2017-08-18] MEDS: ATORVASTATIN 20 MG TAB PO SCH (08:15)
[2017-08-18] MEDS: CLOPIDOGREL BISULFATE 75 MG TAB PO SCH (08:15)
[2017-08-18] MEDS: CARVEDILOL 25 MG TAB PO SCH ×2 (08:16→20:50)
[2017-08-18] MEDS: AMLODIPINE BESYLATE 5 MG TAB PO SCH (08:16)
[2017-08-18] MEDS: INSULIN GLARGINE SOLOSTAR 100 UNITS/ML 3 ML PEN SC SCH ×2 (08:20→20:56)
[2017-08-18] MEDS: ACETAMINOPHEN 325 MG TAB PO PRN (08:21)
[2017-08-18] MEDS: BACLOFEN 10 MG TAB PO SCH ×4 (09:28→20:50)
--- NOTE | 2017-08-18 09:32 | Pain Management Progress Note ---
Pain Management Progress Note Date of Service Aug 18, 2017. Subjective 62-year-old male with right flank and chest pain. He reports improvement in his pain since yesterday and was able to sleep a few hours last evening. Reports that the combination of Tylenol and tramadol have been efficacious in relieving his pain to a tolerable level between 0 and 5 out of 10. He denies any worsening of his pain with respirations, eating, activity. Objective Vital Signs: Last Vital Signs Documentation Date Time Temp Pulse Resp B/P (MAP) Pulse Ox O2 Delivery O2 Flow Rate FiO2 08/18/17 07:48 36.5 74 18 117/75 (89) 100 Room Air 08/17/17 20:33 2.0 Physical Exam: GENERAL: 62-year-old male who is awake, alert and oriented. Appears well developed. Is in no distress at the present time. He is accompanied by his cousin on today's examination PSYCHIATRIC: Demonstrates normal and clear sensorium. Mood and affect are appropriate. Short-term and long-term memory is intact. HEAD AND NECK: No obvious trauma. Demonstrates full range of motion of the cervical spine. No lymphadenopathy is noted. Trachea midline. EARS, EYES AND NOSE: Mucous membranes pink and moist. No mucosal lesions noted. Tongue midline. LUNGS: Clear to auscultation in all lung gabriel. Normal chest excursion. He does not have tenderness to AP compression. He has normal rib motion. No audible wheezing or rhonchi CARDIAC: Regular rate and rhythm ABDOMEN: Normal bowel sounds. Soft nontender. No organomegaly appreciated. BACK: Inspection of the lumbar spine demonstrates normal curvatures. No lesions are noted in the lumbar spine region. He has mild to moderate myofascial tenderness without any identifiable trigger points in the right thoracic paraspinous musculature. There does not appear to be any tenderness with deep palpation of rib heads. No costochondral tenderness is noted bilaterally. NEUROLOGICAL: Cranial nerves II through XII grossly intact. No gross sensory or motor deficits noted in the upper extremity. Sensation and motor strength in the lower extremity are symmetrical without deficit. No pathologic reflexes are noted in the lower extremities. Gait is not observed. EXTREMITIES: He has a large ulcer over his left ventral great toe Laboratory Laboratory Findings 08/17/17 07:12 Red Blood Count 3.23 L, Mean Corpuscular Volume 85.1, Mean Corpuscular Hemoglobin 29.1, Mean Corpuscular Hemoglobin Concent 34.2, Mean Platelet Volume 9.1, Neutrophils (%) (Auto) 77.4, Lymphocytes (%) (Auto) 11.5, Monocytes (%) ( Auto) 10.4, Eosinophils (%) (Auto) 0.1, Basophils (%) (Auto) 0.1, Neutrophils # (Auto) 9.58 H, Lymphocytes # (Auto) 1.42, Monocytes # (Auto) 1.28 H, Eosinophils # (Auto) 0.01, Basophils # (Auto) 0.01 Assessment 1. Right-sided thoracic myofascial pain and spasm 2. Stable thoracic aneurysm 3. Positive urine and blood cultures with possible sepsis 4. Diabetes on insulin 5. Chronic kidney disease stage III 6. Peripheral vascular disease on aspirin and Plavix 7. Left great toe ulcer Recommendations 1. There is no role for interventional pain management at this time as patient has positive urine and blood cultures which preclude intervention. 2. Recommend scheduled baclofen 10 mg by mouth by mouth every 8 and continued K pad placement. Orders are written 3. Recommend initiation of tramadol 50 mg by mouth every 6 when necessary to diminish use of IV hydromorphone 4. We will sign off at this time please call with any questions
--- NOTE | 2017-08-18 11:35 | Progress Note ---
Medicine Progress Note Date & Time of Visit: Aug 18, 2017 at 11:24. Subjective seem resting in bed, comfortable, alert states he feels improved compared to yesterday pain "all over torso" and upper/mid back is improving gradually denies fever/chills no dyspnea (+) mild nausea denies pain on the left foot no other symptoms Objective Last 8 Hrs Date Time Temp Pulse Resp B/P (MAP) Pulse Ox O2 Delivery O2 Flow Rate FiO2 08/18/17 08:00 Room Air 08/18/17 07:48 36.5 74 18 117/75 (89) 100 Room Air Physical Exam: General- oriented x 3, not in distress, speaks in sentences with no effort Head- atraumatic Eyes- EOMI, anicteric ENT- oropharynx clear Neck- supple, no JVD, no adenopathy, no thyromegaly Lungs- clear breath sounds bilaterally, no rales/wheezes Heart- regular rhythm; no murmur, normal rate Abdomen- normal bowel sounds, soft, nontender Extremities- Left Foot: (+) open ulcer on the dorsal MTP area, with surrounding callus, no erythema/discharge no pretibial edema, no calf tenderness; peripheral pulses intact Neuro- alert, oriented x 3; no gross focal neurologic deficits Skin- warm & dry Laboratory Results: Last 24 Hours Test 08/17/17 16:20 08/17/17 19:25 08/17/17 20:13 08/18/17 05:29 Bedside Glucose 167 mg/dl 195 mg/dl 79 mg/dl Vancomycin Level Trough 17.6 mcg/ml Test 08/18/17 06:02 Bedside Glucose 90 mg/dl Assessment & Plan 62 year old male with history of DM, HTN, CKD 3 presenting with chest and back pain. SEVERE CHEST PAIN, BACK PAIN, RIGHT FLANK PAIN - imaging studies unrevealing Stable thoracic aneurysm serial ce and echo unremarkable - evaluated by Cardiology evaluated by Ortho evaluated by Pain Management - likely Myofascial pain Syndrome - on Baclofen TID PRN Tramadol started - improving ABDOMINAL PAIN Abdominal pain CT of the abdomen and pelvis unremarkable. Gallbladder ultrasound is okay - improving SEPSIS SECONDARY TO GROUP B BETA STREP BACTEREMIA INFECTED LEFT TOE ULCER - blood cultures 08/15/17: (+) group B Beta strep blood cultures 08/17/17: pending - MRI Left foot: no signs of osteo - on Vanco IV fever improving - appreciate ID consult, awaiting antibiotic recommendations will consult Wound Care SVC R/O UTI - cultures pending URINARY RETENTION - prostatomegaly on ct scan s/p Bernstein on terazosin urology consulted HYPOXIA, RESOLVED - likely from poor breathing mechanics due to pain 08/16/17Ct chest without contrast to rule out any ongoing infection or congestion-unremarkable DM Type 2 - adjust ISS as patient feeling weak when BSG < 100 - Continue Lantus HBA1c levels. 6.9 History of hypertension. On home medication of Coreg, amlodipine, hydralazine, terazosin. Holding the Lasix for now. W History of chronic kidney disease stage III, baseline creatinine around 2.2 to 2.3, presented with creatinine of 2.4. - crea stable diuretics on hold Peripheral vascular disease status post femoral popliteal bypass surgery on aspirin and Plavix. Also on statin. History of thoracic aortic aneurysm. CT of the chest shows stable thoracic aortic aneurysm. Needs followup. Deep venous thrombosis prophylaxis. SCDs for now. Disposition. Monitor in tele floor. Expect to discharge home and follow with his family doctor. LEVEL 1 FULL CODE. Current Inpatient Medications: Current Inpatient Medications Medications (Trade) Dose Ordered Sig/Domenic Route Start Time Stop Time Status Last Admin Dose Admin Acetaminophen (Tylenol Tab) 650 mg Q4H PRN PO 08/14/17 09:45 09/13/17 09:44 08/18/17 08:21 650 MG Al Hydrox/Mg Hydrox/Simethicone (Maalox Max Susp) 15 ml Q4H PRN PO 08/14/17 09:45 09/13/17 09:44 08/17/17 20:20 15 ML Ondansetron HCl (Zofran Inj) 4 mg Q6H PRN IV 08/14/17 09:45 09/13/17 09:44 08/18/17 03:15 4 MG Nitroglycerin (Nitrostat Tab) 0.4 mg UD PRN SL 08/14/17 09:45 09/13/17 09:44 Amlodipine Besylate (Norvasc Tab) 10 mg DAILY PO 08/15/17 09:00 09/14/17 08:59 08/18/17 08:16 10 MG Aspirin (Ecotrin Tab) 81 mg DAILY PO 08/15/17 09:00 09/14/17 08:59 08/18/17 08:14 81 MG Atorvastatin Calcium (Lipitor Tab) 40 mg DAILY PO 08/15/17 09:00 09/14/17 08:59 08/18/17 08:15 40 MG Carvedilol (Coreg Tab) 37.5 mg BID PO 08/14/17 21:00 09/13/17 20:59 08/18/17 08:16 37.5 MG Cholecalciferol (Vitamin D Tab) 4,000 inter.unit DAILY PO 08/15/17 09:00 09/14/17 08:59 08/18/17 08:15 4,000 INTER.UNIT Clopidogrel Bisulfate (plAVix TAB) 75 mg DAILY PO 08/15/17 09:00 09/14/17 08:59 08/18/17 08:15 75 MG Hydralazine HCl (Apresoline Tab) 50 mg TID PO 08/14/17 14:00 09/13/17 13:59 08/18/17 08:15 50 MG Terazosin HCl (Hytrin Cap) 4 mg HS PO 08/14/17 21:00 09/13/17 20:59 08/17/17 20:21 4 MG Glucose (Glucose 40% Gel) 15-30 GRAMS 15 GRAMS... UD PRN PO 08/14/17 12:00 09/13/17 11:59 Glucose (Glucose Chew Tab) 4-8 Tablets 4 Tabl... UD PRN PO 08/14/17 12:00 09/13/17 11:59 Dextrose (Dextrose 50% 50ML Syringe) 25-50ML OF 50% DW IV FOR... UD PRN IV 08/14/17 12:00 09/13/17 11:59 Glucagon (Glucagon Inj) 1 mg UD PRN SQ 08/14/17 12:00 09/13/17 11:59 Miscellaneous (Iv Fluids Completed) 1 ea PRN PRN N/A 08/14/17 12:45 08/14/18 12:44 Insulin Aspart (novoLOG ASPART) SLIDING SCALE G... ACHS SC 08/15/17 07:00 09/13/17 10:59 08/17/17 20:24 3 UNITS Promethazine HCl 12.5 mg/Sodium Chloride 50.5 ml @ 204 mls/hr Q6H PRN IV 08/15/17 11:30 09/14/17 11:29 Vancomycin HCl (Consult) 1 ea UD PRN N/A 08/15/17 14:30 09/14/17 14:29 Vancomycin HCl 1500 mg/Sodium Chloride 530 ml @ 200 mls/hr Q18H IV 08/16/17 08:00 08/26/17 07:59 08/17/17 20:20 200 MLS/HR Insulin Glargine (Lantus Solostar Pen) 34 units BID SC 08/16/17 09:00 09/13/17 20:59 08/18/17 08:20 34 UNITS Ipratropium [place] (Atrovent 0.02% 0.5MG/2.5ML Neb) 0.5 mg Q2R PRN INH 08/16/17 09:30 09/15/17 09:29 08/17/17 20:33 0.5 MG Levalbuterol (Xopenex 1.25MG/ 0.5ML Neb) 1.25 mg Q2R PRN INH 08/16/17 09:30 09/15/17 09:29 08/17/17 20:33 1.25 MG Baclofen (Lioresal Tab) 10 mg TID PO 08/18/17 08:15 09/17/17 08:14 08/18/17 09:28 10 MG Hydromorphone HCl (Dilaudid Inj) 1 mg Q6 PRN IV 08/18/17 08:15 09/01/17 08:14 Tramadol HCl (Ultram Tab) 50 mg Q6H PRN PO 08/18/17 08:15 09/17/17 08:14
[2017-08-18] MEDS: TRAMADOL HCL 50 MG TAB PO PRN ×2 (12:04→18:11)
[2017-08-18] MEDS: VANCOMYCIN INJ 1,500 MG in SODIUM CHLORIDE 0.9% 500ML 500 ML IV SCH (13:50)
--- NOTE | 2017-08-18 14:58 | Progress Note ---
Subjective Date of Service: Aug 18, 2017. Subjective afebrile, MRI negative for osteo, abscess, prolonged wound on foot, suspect source of bacteremia. repeat cultures pending. Initial blood culture with GBS. Echo, t spin, l spine MRI negative, s/p pain management eval. Problem List Medical Problems: (1) Headache Status: Acute (2) Non-traumatic subconjunctival hemorrhage of left eye Status: Acute (3) Right-sided chest pain Status: Acute Objective Vital Signs Date Time Temp Pulse Resp B/P (MAP) Pulse Ox O2 Delivery O2 Flow Rate FiO2 08/18/17 11:54 36.8 63 18 93 08/18/17 11:29 36.8 63 18 162/74 (103) 93 Room Air 08/18/17 08:00 Room Air 08/18/17 07:48 36.5 74 18 117/75 (89) 100 Room Air 08/18/17 03:03 36.5 59 16 170/88 (115) 94 Room Air 08/18/17 00:00 91 Room Air 08/17/17 23:10 37.1 74 22 145/71 (95) 91 Room Air 08/17/17 20:33 69 20 93 Nasal Cannula 2.0 08/17/17 20:15 90 Room Air 08/17/17 19:51 36.9 72 18 155/67 (96) 90 Room Air 08/17/17 16:00 97 Room Air 08/17/17 15:39 37.1 67 18 146/69 (94) 91 Room Air Laboratory Results Last 24 Hours Test 08/17/17 16:20 08/17/17 19:25 08/17/17 20:13 08/18/17 05:29 Bedside Glucose 167 mg/dl 195 mg/dl 79 mg/dl Vancomycin Level Trough 17.6 mcg/ml Test 08/18/17 06:02 Bedside Glucose 90 mg/dl Assessment and Plan (1) Sepsis Assessment & Plan: await repeat blood culture. will change to rocephin, will likely need course of abx IV upon d/c. may also benefit from wound care eval due to prolonged open ulcer on foot. (2) Diabetic foot infection
[2017-08-18] MEDS: CEFTRIAXONE SOD INJ 2,000 MG in DEXTROSE 5% 50ML 50 ML IV SCH (18:40)
[2017-08-19] MEDS: ONDANSETRON INJ 2 MG/ML 2 ML VIAL IV PRN ×2 (00:04→04:32)
[2017-08-19] MEDS: INSULIN ASPART 100 UNITS/ML 3 ML PEN SC SCH ×4 (06:30→21:00)
[2017-08-19 07:17] VITALS: BP 170/69; PULSE 62; TEMP 36.9; O2SAT 94
[2017-08-19 07:39] LABS: CREATININE 1.85 mg/dl (0.60-1.40)
[2017-08-19] MEDS: CLOPIDOGREL BISULFATE 75 MG TAB PO SCH (08:08)
[2017-08-19] MEDS: CHOLECALCIFEROL 1000 INTER.UNIT TAB PO SCH (08:08)
[2017-08-19] MEDS: BACLOFEN 10 MG TAB PO SCH ×3 (08:08→21:00)
[2017-08-19] MEDS: ATORVASTATIN 20 MG TAB PO SCH (08:08)
[2017-08-19] MEDS: ASPIRIN 81 MG ECTAB PO SCH (08:08)
[2017-08-19] MEDS: AMLODIPINE BESYLATE 5 MG TAB PO SCH (08:09)
[2017-08-19] MEDS: CARVEDILOL 25 MG TAB PO SCH ×2 (08:09→21:02)
[2017-08-19] MEDS: INSULIN GLARGINE SOLOSTAR 100 UNITS/ML 3 ML PEN SC SCH ×2 (08:10→21:23)
[2017-08-19] MEDS: TRAMADOL HCL 50 MG TAB PO PRN ×3 (08:18→20:47)
[2017-08-19 11:01] VITALS: BP 159/69; PULSE 68; TEMP 36.9; O2SAT 94
--- NOTE | 2017-08-19 11:17 | Progress Note ---
Subjective Date of Service: Aug 19, 2017. Subjective remains afebrile, repeat blood cultures negative, transitioned to ctx yesterday , tolerating well. No new labs. pain management following as well. Problem List Medical Problems: (1) Headache Status: Acute (2) Non-traumatic subconjunctival hemorrhage of left eye Status: Acute (3) Right-sided chest pain Status: Acute Objective Vital Signs Date Time Temp Pulse Resp B/P (MAP) Pulse Ox O2 Delivery O2 Flow Rate FiO2 08/19/17 11:01 36.9 68 18 159/69 (99) 94 Room Air 08/19/17 08:00 Room Air 08/19/17 07:17 36.9 62 18 170/69 (102) 94 Room Air 08/19/17 00:00 Room Air 08/18/17 23:49 37.0 65 20 161/83 (109) 92 Room Air 08/18/17 20:13 37.1 66 20 153/62 (92) 92 08/18/17 16:00 Room Air 08/18/17 11:54 36.8 63 18 93 08/18/17 11:29 36.8 63 18 162/74 (103) 93 Room Air Laboratory Results Item Value Date Time Blood Culture - Preliminary Resulted 08/17/17 1053 Blood NO GROWTH TO DATE. Blood Culture - Preliminary Resulted 08/17/17 1041 Blood NO GROWTH TO DATE. Blood Culture - Final Complete 08/15/17 1424 Blood Group B Beta Strep Blood Culture - Final Complete 08/15/17 1410 Blood Group B Beta Strep Last 24 Hours Test 08/18/17 16:25 08/18/17 20:13 08/19/17 04:37 08/19/17 07:01 Bedside Glucose 202 mg/dl 212 mg/dl 140 mg/dl Creatinine 1.85 mg/dl Est Creatinine Clear Calc Drug Dose 50.7 ml/min Estimated GFR () 44.9 Estimated GFR (Non- 38.7 Test 08/19/17 07:24 Bedside Glucose 129 mg/dl Assessment and Plan (1) Septicemia due to group B Streptococcus Assessment & Plan: will continue with rocephin, would give 4 weeks from first negative culture, tentative stop date 09/14. will need picc line, repeat culture negative. will need weekly cbc,cmp while on abx. (2) Diabetic foot infection
[2017-08-19] MEDS ORDERED: CLONIDINE HCL 0.1 MG TAB PO PRN (15:15)
--- NOTE | 2017-08-19 15:18 | Progress Note ---
Medicine Progress Note Date & Time of Visit: Aug 19, 2017 at 15:12. Subjective seen resting in bed, comfortable improving overall, has some right shoulder pain today also had nausea this morning after IV Dilaudid, improved denies fever/chills denies other symptoms Objective Last 8 Hrs Date Time Temp Pulse Resp B/P (MAP) Pulse Ox O2 Delivery O2 Flow Rate FiO2 08/19/17 11:01 36.9 68 18 159/69 (99) 94 Room Air 08/19/17 08:00 Room Air 08/19/17 07:17 36.9 62 18 170/69 (102) 94 Room Air Physical Exam: General- oriented x 3, not in distress, speaks in sentences with no effort Head- atraumatic Eyes- anicteric Neck- supple, no JVD Lungs- clear breath sounds bilaterally, no rales/wheezes Heart- regular rhythm; no murmur, normal rate Abdomen- normal bowel sounds, soft, nontender Extremities- Left Foot: (+) open ulcer on the dorsal MTP area, with surrounding callus, no erythema/discharge no pretibial edema, no calf tenderness; peripheral pulses intact Neuro- alert, oriented x 3; no gross focal neurologic deficits Skin- warm & dry Laboratory Results: Last 24 Hours Test 08/18/17 16:25 08/18/17 20:13 08/19/17 04:37 08/19/17 07:01 Bedside Glucose 202 mg/dl 212 mg/dl 140 mg/dl Creatinine 1.85 mg/dl Est Creatinine Clear Calc Drug Dose 50.7 ml/min Estimated GFR () 44.9 Estimated GFR (Non- 38.7 Test 08/19/17 07:24 08/19/17 11:31 Bedside Glucose 129 mg/dl 111 mg/dl Assessment & Plan 62 year old male with history of DM, HTN, CKD 3 presenting with chest and back pain. SEVERE CHEST PAIN, BACK PAIN, RIGHT FLANK PAIN - imaging studies unrevealing Stable thoracic aneurysm serial ce and echo unremarkable - evaluated by Cardiology evaluated by Ortho evaluated by Pain Management - likely Myofascial pain Syndrome - on Baclofen TID PRN Tramadol started Lidoderm patch - improving ABDOMINAL PAIN Abdominal pain CT of the abdomen and pelvis unremarkable. Gallbladder ultrasound is okay - improving SEPSIS SECONDARY TO GROUP B BETA STREP BACTEREMIA INFECTED LEFT TOE ULCER - blood cultures 08/15/17: (+) group B Beta strep blood cultures 08/17/17: negative - MRI Left foot: no signs of osteo - Vanco IV--> changed to Ceftri IV afebrile x 2 days - appreciate ID consult Ceftri IV x 4 weeks via PICC line CBC, CMP weekly while on IV Ceftri ff up with ID, Wound Care consulted Wound Care SVC and Dr. Mcmillan UTI, ST[facility] - cultures: pansensitive on Ceftri IV URINARY RETENTION - prostatomegaly on ct scan Bernstein catheter in place on terazosin urology consulted, HYPOXIA, RESOLVED - likely from poor breathing mechanics due to pain 08/16/17Ct chest without contrast to rule out any ongoing infection or congestion-unremarkable DM Type 2 - adjust ISS as patient feeling weak when BSG < 100 - Continue Lantus HBA1c levels. 6.9 History of hypertension. On home medication of Coreg, amlodipine, hydralazine, terazosin. Holding the Lasix for now. W -- BP elevated likely from pain ,nausea Clonidine PRN ordered History of chronic kidney disease stage III, baseline creatinine around 2.2 to 2.3, presented with creatinine of 2.4. - crea stable diuretics on hold Peripheral vascular disease status post femoral popliteal bypass surgery on aspirin and Plavix. Also on statin. History of thoracic aortic aneurysm. CT of the chest shows stable thoracic aortic aneurysm. Needs followup. Deep venous thrombosis prophylaxis. SCDs for now. Disposition - needs IV Ceftri x 4 weeks PICC line ordered - anticipate d/c home tomorrow with home health services Current Inpatient Medications: Current Inpatient Medications Medications (Trade) Dose Ordered Sig/Domenic Route Start Time Stop Time Status Last Admin Dose Admin Acetaminophen (Tylenol Tab) 650 mg Q4H PRN PO 08/14/17 09:45 09/13/17 09:44 08/18/17 08:21 650 MG Al Hydrox/Mg Hydrox/Simethicone (Maalox Max Susp) 15 ml Q4H PRN PO 08/14/17 09:45 09/13/17 09:44 08/17/17 20:20 15 ML Ondansetron HCl (Zofran Inj) 4 mg Q6H PRN IV 08/14/17 09:45 09/13/17 09:44 08/19/17 04:32 4 MG Nitroglycerin (Nitrostat Tab) 0.4 mg UD PRN SL 08/14/17 09:45 09/13/17 09:44 Amlodipine Besylate (Norvasc Tab) 10 mg DAILY PO 08/15/17 09:00 09/14/17 08:59 08/19/17 08:09 10 MG Aspirin (Ecotrin Tab) 81 mg DAILY PO 08/15/17 09:00 09/14/17 08:59 08/19/17 08:08 81 MG Atorvastatin Calcium (Lipitor Tab) 40 mg DAILY PO 08/15/17 09:00 09/14/17 08:59 08/19/17 08:08 40 MG Carvedilol (Coreg Tab) 37.5 mg BID PO 08/14/17 21:00 09/13/17 20:59 08/19/17 08:09 37.5 MG Cholecalciferol (Vitamin D Tab) 4,000 inter.unit DAILY PO 08/15/17 09:00 09/14/17 08:59 08/19/17 08:08 4,000 INTER.UNIT Clopidogrel Bisulfate (plAVix TAB) 75 mg DAILY PO 08/15/17 09:00 09/14/17 08:59 08/19/17 08:08 75 MG Hydralazine HCl (Apresoline Tab) 50 mg TID PO 08/14/17 14:00 09/13/17 13:59 08/19/17 13:43 50 MG Terazosin HCl (Hytrin Cap) 4 mg HS PO 08/14/17 21:00 09/13/17 20:59 08/18/17 20:50 4 MG Glucose (Glucose 40% Gel) 15-30 GRAMS 15 GRAMS... UD PRN PO 08/14/17 12:00 09/13/17 11:59 Glucose (Glucose Chew Tab) 4-8 Tablets 4 Tabl... UD PRN PO 08/14/17 12:00 09/13/17 11:59 Dextrose (Dextrose 50% 50ML Syringe) 25-50ML OF 50% DW IV FOR... UD PRN IV 08/14/17 12:00 09/13/17 11:59 Glucagon (Glucagon Inj) 1 mg UD PRN SQ 08/14/17 12:00 09/13/17 11:59 Miscellaneous (Iv Fluids Completed) 1 ea PRN PRN N/A 1/5/18 12:45 08/14/18 12:44 Insulin Aspart (novoLOG ASPART) SLIDING SCALE G... ACHS SC 08/15/17 07:00 09/13/17 10:59 08/18/17 20:56 1 UNITS Promethazine HCl 12.5 mg/Sodium Chloride 50.5 ml @ 204 mls/hr Q6H PRN IV 08/15/17 11:30 09/14/17 11:29 08/19/17 06:33 204 MLS/HR Insulin Glargine (Lantus Solostar Pen) 34 units BID SC 08/16/17 09:00 09/13/17 20:59 08/19/17 08:10 34 UNITS Ipratropium [place] (Atrovent 0.02% 0.5MG/2.5ML Neb) 0.5 mg Q2R PRN INH 08/16/17 09:30 09/15/17 09:29 08/17/17 20:33 0.5 MG Levalbuterol (Xopenex 1.25MG/ 0.5ML Neb) 1.25 mg Q2R PRN INH 08/16/17 09:30 09/15/17 09:29 08/17/17 20:33 1.25 MG Baclofen (Lioresal Tab) 10 mg TID PO 08/18/17 08:15 09/17/17 08:14 08/19/17 13:43 10 MG Hydromorphone HCl (Dilaudid Inj) 1 mg Q6 PRN IV 08/18/17 08:15 09/01/17 08:14 08/18/17 20:37 1 MG Tramadol HCl (Ultram Tab) 50 mg Q6H PRN PO 08/18/17 08:15 09/17/17 08:14 08/19/17 14:15 50 MG Ceftriaxone Sodium 2000 mg/ Dextrose 70 ml @ 100 mls/hr Q24H IV 08/18/17 16:00 09/01/17 15:59 08/18/17 18:40 100 MLS/HR Lidocaine (Lidoderm Patch 5%) 1 patch QAM TD 08/20/17 09:00 09/19/17 08:59 UNV Lidocaine (Lidoderm Patch 5%) 1 patch 1510 ONCE TD 08/19/17 15:10 08/19/17 15:11 UNV Miscellaneous (Remove Lidoderm Patch) 1 ea DAILY@21 N/A 08/19/17 21:00 09/18/17 20:59 UNV
[2017-08-19] MEDS ORDERED: LIDODERM (LIDOCAINE) PATCH 5% TD ONE (15:30)
[2017-08-19 15:53] VITALS: BP 165/74; PULSE 64; TEMP 36.8; O2SAT 95
[2017-08-19] MEDS: CEFTRIAXONE SOD INJ 2,000 MG in DEXTROSE 5% 50ML 50 ML IV SCH (17:08)
[2017-08-19 20:59] VITALS: BP 172/74; PULSE 67
[2017-08-19 23:00] VITALS: BP 156/79; PULSE 65; TEMP 37.1; O2SAT 93
[2017-08-20] VITALS (7 sets, daily range): BP systolic 155–178; BP diastolic 71–85; PULSE 60–65; TEMP 36.5–37.1; O2SAT 95–98
[2017-08-20] MEDS: HYDROmorphone INJ 1 MG/ML SYR IV PRN (00:16)
[2017-08-20 05:59] LABS: CREATININE 1.71 mg/dl (0.60-1.40)
[2017-08-20] MEDS: LIDODERM (LIDOCAINE) PATCH 5% TD SCH (08:00)
[2017-08-20] MEDS: INSULIN ASPART 100 UNITS/ML 3 ML PEN SC SCH ×4 (08:27→20:41)
[2017-08-20] MEDS: BACLOFEN 10 MG TAB PO SCH ×3 (09:03→20:25)
[2017-08-20] MEDS: CHOLECALCIFEROL 1000 INTER.UNIT TAB PO SCH (09:03)
[2017-08-20] MEDS: ATORVASTATIN 20 MG TAB PO SCH (09:04)
[2017-08-20] MEDS: CLOPIDOGREL BISULFATE 75 MG TAB PO SCH (09:04)
[2017-08-20] MEDS: ASPIRIN 81 MG ECTAB PO SCH (09:04)
[2017-08-20] MEDS: CARVEDILOL 25 MG TAB PO SCH ×2 (09:05→20:25)
[2017-08-20] MEDS: AMLODIPINE BESYLATE 5 MG TAB PO SCH (09:06)
[2017-08-20] MEDS: INSULIN GLARGINE SOLOSTAR 100 UNITS/ML 3 ML PEN SC SCH (09:10)
[2017-08-20] MEDS ORDERED: CEFT1INJ57 IV (12:43)
--- NOTE | 2017-08-20 13:33 | Wound Consultation: Inpatient ---
Wound Consultation Date of Consultation: Aug 20, 2017. Attending Physician: Saturnino Delgado MD Reason for Consultation: Ulceration left great toe. History of Present Illness Patient states she's had a history of the ulceration on the left great toe for approximately 4 months. This is an opening close since that time. Patient was initially seen by her stock analyst filed the callus down. After this bleeding occurred about 4 days later. Patient states she was recently on vacation in [place] for 3 weeks and was soaking his foot in the ocean thinking this would improve the problem. Patient was admitted 6 days ago for sepsis secondary to this ulceration. Patient currently denies any fever chills or night sweats. Patient denies any increased pain swelling or redness of the foot or leg. Patient denies any chest pain shortness of breath abdominal discomfort nausea or vomiting. Patient denies any other systemic complaints. Patient is an insulin-dependent diabetic nonsmoker. Social History Smoking Status: Never Smoker Smokeless Tobacco Use: No Marital Status: Housing Status: lives with family Allergies Coded Allergies: Iodinated Diagnostic Agents (Verified Allergy, Unknown, shaking, severe anxiety, 08/14/17) Home Medications Scheduled Amlodipine (Norvasc), 10 MG PO DAILY Aspirin (Aspirin Ec), 81 MG PO DAILY Atorvastatin (Lipitor), 40 MG PO DAILY Carvedilol (Coreg), 37.5 MG PO AMPM Ceftriaxone Sod (Rocephin), 2 GM IV DAILY Cholecalciferol (Vitamin D), 4,000 UNITS PO DAILY Clopidogrel Bisulfate (Plavix), 75 MG PO DAILY Furosemide (Lasix), 20 MG PO BID Hydralazine HCl (Hydralazine HCl), 50 MG PO TID Insulin Glargine (Lantus Solostar), 34 UNITS SC Q12 Spironolactone (Aldactone), 12.5 MG PO DAILY Terazosin Hcl (Hytrin), 4 MG PO HS Inpatient Medications Current Inpatient Medications Medications (Trade) Dose Ordered Sig/Domenic Route Start Time Stop Time Status Last Admin Dose Admin Acetaminophen (Tylenol Tab) 650 mg Q4H PRN PO 08/14/17 09:45 09/13/17 09:44 08/18/17 08:21 650 MG Al Hydrox/Mg Hydrox/Simethicone (Maalox Max Susp) 15 ml Q4H PRN PO 08/14/17 09:45 2/4/18 09:44 08/17/17 20:20 15 ML Ondansetron HCl (Zofran Inj) 4 mg Q6H PRN IV 08/14/17 09:45 09/13/17 09:44 08/19/17 04:32 4 MG Nitroglycerin (Nitrostat Tab) 0.4 mg UD PRN SL 08/14/17 09:45 09/13/17 09:44 Amlodipine Besylate (Norvasc Tab) 10 mg DAILY PO 08/15/17 09:00 09/14/17 08:59 08/20/17 09:06 10 MG Aspirin (Ecotrin Tab) 81 mg DAILY PO 08/15/17 09:00 09/14/17 08:59 08/20/17 09:04 81 MG Atorvastatin Calcium (Lipitor Tab) 40 mg DAILY PO 08/15/17 09:00 09/14/17 08:59 08/20/17 09:04 40 MG Carvedilol (Coreg Tab) 37.5 mg BID PO 08/14/17 21:00 09/13/17 20:59 08/20/17 09:05 37.5 MG Cholecalciferol (Vitamin D Tab) 4,000 inter.unit DAILY PO 08/15/17 09:00 09/14/17 08:59 08/20/17 09:03 4,000 INTER.UNIT Clopidogrel Bisulfate (plAVix TAB) 75 mg DAILY PO 08/15/17 09:00 09/14/17 08:59 08/20/17 09:04 75 MG Hydralazine HCl (Apresoline Tab) 50 mg TID PO 08/14/17 14:00 09/13/17 13:59 08/20/17 09:06 50 MG Terazosin HCl (Hytrin Cap) 4 mg HS PO 08/14/17 21:00 09/13/17 20:59 08/19/17 21:01 4 MG Glucose (Glucose 40% Gel) 15-30 GRAMS 15 GRAMS... UD PRN PO 08/14/17 12:00 09/13/17 11:59 Glucose (Glucose Chew Tab) 4-8 Tablets 4 Tabl... UD PRN PO 08/14/17 12:00 09/13/17 11:59 Dextrose (Dextrose 50% 50ML Syringe) 25-50ML OF 50% DW IV FOR... UD PRN IV 08/14/17 12:00 09/13/17 11:59 Glucagon (Glucagon Inj) 1 mg UD PRN SQ 08/14/17 12:00 09/13/17 11:59 Miscellaneous (Iv Fluids Completed) 1 ea PRN PRN N/A 08/14/17 12:45 08/14/18 12:44 Insulin Aspart (novoLOG ASPART) SLIDING SCALE G... ACHS SC 08/15/17 07:00 09/13/17 10:59 08/18/17 20:56 1 UNITS Promethazine HCl 12.5 mg/Sodium Chloride 50.5 ml @ 204 mls/hr Q6H PRN IV 08/15/17 11:30 09/14/17 11:29 08/19/17 06:33 204 MLS/HR Insulin Glargine (Lantus Solostar Pen) 34 units BID SC 08/16/17 09:00 09/13/17 20:59 08/20/17 09:10 34 UNITS Ipratropium Elmer (Atrovent 0.02% 0.5MG/2.5ML Neb) 0.5 mg Q2R PRN INH 08/16/17 09:30 09/15/17 09:29 08/17/17 20:33 0.5 MG Levalbuterol (Xopenex 1.25MG/ 0.5ML Neb) 1.25 mg Q2R PRN INH 08/16/17 09:30 09/15/17 09:29 08/17/17 20:33 1.25 MG Baclofen (Lioresal Tab) 10 mg TID PO 08/18/17 08:15 09/17/17 08:14 08/20/17 09:03 10 MG Hydromorphone HCl (Dilaudid Inj) 1 mg Q6 PRN IV 08/18/17 08:15 09/01/17 08:14 08/20/17 00:16 1 MG Tramadol HCl (Ultram Tab) 50 mg Q6H PRN PO 08/18/17 08:15 09/17/17 08:14 08/19/17 20:47 50 MG Ceftriaxone Sodium 2000 mg/ Dextrose 70 ml @ 100 mls/hr Q24H IV 08/18/17 16:00 09/01/17 15:59 08/19/17 17:08 100 MLS/HR Lidocaine (Lidoderm Patch 5%) 1 patch QAM TD 08/20/17 08:00 09/19/17 08:59 Miscellaneous (Remove Lidoderm Patch) 1 ea DAILY@21 N/A 08/19/17 21:00 09/18/17 20:59 08/19/17 21:00 1 EA Clonidine HCl (Catapres Tab) 0.1 mg Q6H PRN PO 08/19/17 15:15 09/18/17 15:14 Heparin Sodium (Porcine) (Heparin 10 Unit/ ml 5 ml Flush) 5 ml PRN PRN FLUSH 08/19/17 17:45 09/18/17 17:44 08/20/17 07:52 5 ML Physical Exam Date Time Temp Pulse Resp B/P (MAP) Pulse Ox O2 Delivery O2 Flow Rate FiO2 08/20/17 08:02 36.8 64 16 167/78 (107) 98 Room Air 08/20/17 08:00 97 Room Air 08/20/17 00:48 36.5 62 18 167/79 (108) 97 Room Air 08/20/17 00:00 Room Air 08/19/17 23:00 37.1 65 20 156/79 (104) 93 Room Air 08/19/17 20:59 67 172/74 (106) 08/19/17 16:00 Room Air 08/19/17 15:53 36.8 64 18 165/74 (104) 95 Room Air General: The patient is sitting in a hospital bed in no distress. Alert, cooperative and appropriate to all questions. HEENT: Pupils equal and reactive to light. Sclera clear, EOM intact. Neck: Supple, No JVD noted Chest: CTA in all gabriel. No deformity Heart: RRR without murmurs, S3, S4, thrills, rubs or heaves Extremities: Ulceration is present on the plantar surface of the first digit left foot. Following debridement measurements by 0.8 x 0.7 x 0.2 cm. Surrounding callus eschar and central slough were noted. No active drainage or odor was noted. No periwound erythema or edema noted. Pulses were +2 bilaterally equal and dorsal penile some posterior tibial areas. Good range of motion is present. Neurological: Alert and oriented x3. No focal deficits. Monofilament testing reveals no neuropathy Skin: No rashes, papules, vesicles, excoriations Laboratory Results Last 24 Hours Test 08/19/17 17:02 08/19/17 20:25 08/20/17 05:12 Bedside Glucose 136 mg/dl 186 mg/dl Creatinine 1.71 mg/dl Est Creatinine Clear Calc Drug Dose 54.8 ml/min Estimated GFR () 49.3 Estimated GFR (Non- 42.6 Assessment & Plan Assessment: Reeves grade 2 diabetic foot ulcer first digit left foot plantar surface down to subcutaneous tissue Plan: At this time the patient did require debridement. With patient's permission and after the application of topical Xylocaine 4% the site was debrided with a combination of scissors, forceps and a #5 curette. Surrounding undermined skin callus eschar and central slough were removed. Some subcutaneous tissue was also removed. Bleeding did occur was controlled direct pressure. This I will be dressed with Aquacel Ag and gauze changed on a daily basis. Patient will be evaluated by orthotics for cam boot application. Patient is instructed on the need for constant offloading as directed. Patient will continue his current antibiotic therapy as prescribed. Patient will be following outpatient basis upon discharge. This represented an excisional debridement of less than 20 cm.
[2017-08-20] MEDS: CEFTRIAXONE SOD INJ 2,000 MG in DEXTROSE 5% 50ML 50 ML IV SCH (14:22)
--- NOTE | 2017-08-20 17:18 | Urology Consultation ---
History General Date of Service: Aug 20, 2017. Chief Complaint: urinary retention Primary Care Physician: Chele Cullen M.D. Pt seen a urologist before?: No History of Present Illness I am asked by Dr Delgado to evaluate and treat patient for urinary retention. He is admitted with severe right flank pain and an infected extremity. He was incidentally diagnosed with uti (staph) and urinary retention. He was noted to have an elevated residual urine on hospital day 1. He had no bladder pain or feelings of incomplete emptying. His residual was > 999mL then he voided 700 and he had a residual of 700mL still. He describes baseline voiding function of good stream and nocturia 1-2 times. He has no hesitancy. he does not leak. He notes during the day he regularly goes 8 hours without passing urine. He has had problems last 1-2 years with utis for which the source is not clear. Imaging Imaging: CT Laboratory Results Past 24 Hours Test 08/19/17 20:25 08/20/17 05:12 Range/Units Bedside Glucose 186 70-99 mg/dl Creatinine 1.71 0.60-1.40 mg/dl Est Creatinine Clear Calc Drug Dose 54.8 ml/min Estimated GFR () 49.3 Estimated GFR (Non- 42.6 Labs were reviewed and are within normal limits unless listed below. Labs are available in the chart and at [facility] Problem List Medical Problems: (1) Headache Status: Acute (2) Non-traumatic subconjunctival hemorrhage of left eye Status: Acute (3) Right-sided chest pain Status: Acute Past History BPH, chronic back pain, coronary artery disease, diabetes, heart disease, hypertension Family History severe CAD in father Social History Hx Tobacco Use In Past Year?: No Smoking: non-smoker Alcohol: never Drug use: none Marital status: single, other (lives with partner ) Housing status: lives with family Occupation status: disabled (due to thoracic aneurysm due to patient) Allergies Coded Allergies: Iodinated Diagnostic Agents (Verified Allergy, Unknown, shaking, severe anxiety, 08/14/17) Medications Home Medications: Home Meds and Scripts Medications Dose Route/Sig Max Daily Dose Days Date Category Dose Instructions Rocephin (Ceftriaxone Sodium) 1 Gm Inj 2 Gm IV DAILY 25 08/20/17 Rx Aspirin Ec (Aspirin) 81 Mg Tab 81 Mg PO DAILY 07/21/17 Reported Norvasc (Amlodipine Besylate) 10 Mg Tab 10 Mg PO DAILY 07/21/17 Reported Lantus Solostar (Insulin Glargine) 100 Unit/Ml Inj 34 Units SC Q12 07/21/17 Reported Hytrin (Terazosin HCl) 2 Mg Cap 4 Mg PO HS 07/21/17 Reported TWO 2 MG CAPSULES Lipitor (Atorvastatin Calcium) 40 Mg Tab 40 Mg PO DAILY 07/21/17 Reported Plavix (Clopidogrel Bisulfate) 75 Mg Tab 75 Mg PO DAILY 07/21/17 Reported Hydralazine HCl 50 Mg Tab 50 Mg PO TID 07/21/17 Reported Vitamin D (Cholecalciferol) 1,000 Unit Tab 4,000 Units PO DAILY 07/21/17 Reported FOUR 1,000 UNIT TABS Lasix (Furosemide) 40 Mg Tab 20 Mg PO BID 07/21/17 Reported 1/2 OF A 40 MG TABLET TWICE DAILY Aldactone (Spironolactone) 25 Mg Tab 12.5 Mg PO DAILY 07/21/17 Reported Coreg (Carvedilol) 25 Mg Tab 37.5 Mg PO AMPM 07/21/17 Reported WITH MORNING AND EVENING MEALS Inpatient Medications: Current Inpatient Medications Medications (Trade) Dose Ordered Sig/Domenic Route Start Time Stop Time Status Last Admin Dose Admin Acetaminophen (Tylenol Tab) 650 mg Q4H PRN PO 08/14/17 09:45 09/13/17 09:44 08/18/17 08:21 650 MG Al Hydrox/Mg Hydrox/Simethicone (Maalox Max Susp) 15 ml Q4H PRN PO 08/14/17 09:45 09/13/17 09:44 08/17/17 20:20 15 ML Ondansetron HCl (Zofran Inj) 4 mg Q6H PRN IV 08/14/17 09:45 09/13/17 09:44 08/19/17 04:32 4 MG Nitroglycerin (Nitrostat Tab) 0.4 mg UD PRN SL 08/14/17 09:45 09/13/17 09:44 Amlodipine Besylate (Norvasc Tab) 10 mg DAILY PO 08/15/17 09:00 09/14/17 08:59 08/20/17 09:06 10 MG Aspirin (Ecotrin Tab) 81 mg DAILY PO 08/15/17 09:00 09/14/17 08:59 08/20/17 09:04 81 MG Atorvastatin Calcium (Lipitor Tab) 40 mg DAILY PO 08/15/17 09:00 09/14/17 08:59 08/20/17 09:04 40 MG Carvedilol (Coreg Tab) 37.5 mg BID PO 08/14/17 21:00 09/13/17 20:59 08/20/17 09:05 37.5 MG Cholecalciferol (Vitamin D Tab) 4,000 inter.unit DAILY PO 08/15/17 09:00 09/14/17 08:59 08/20/17 09:03 4,000 INTER.UNIT Clopidogrel Bisulfate (plAVix TAB) 75 mg DAILY PO 08/15/17 09:00 09/14/17 08:59 08/20/17 09:04 75 MG Hydralazine HCl (Apresoline Tab) 50 mg TID PO 08/14/17 14:00 09/13/17 13:59 08/20/17 14:21 50 MG Terazosin HCl (Hytrin Cap) 4 mg HS PO 08/14/17 21:00 09/13/17 20:59 08/19/17 21:01 4 MG Glucose (Glucose 40% Gel) 15-30 GRAMS 15 GRAMS... UD PRN PO 08/14/17 12:00 09/13/17 11:59 Glucose (Glucose Chew Tab) 4-8 Tablets 4 Tabl... UD PRN PO 08/14/17 12:00 09/13/17 11:59 Dextrose (Dextrose 50% 50ML Syringe) 25-50ML OF 50% DW IV FOR... UD PRN IV 08/14/17 12:00 09/13/17 11:59 Glucagon (Glucagon Inj) 1 mg UD PRN SQ 08/14/17 12:00 09/13/17 11:59 Miscellaneous (Iv Fluids Completed) 1 ea PRN PRN N/A 08/14/17 12:45 08/14/18 12:44 Insulin Aspart (novoLOG ASPART) SLIDING SCALE G... ACHS SC 08/15/17 07:00 09/13/17 10:59 08/18/17 20:56 1 UNITS Promethazine HCl 12.5 mg/Sodium Chloride 50.5 ml @ 204 mls/hr Q6H PRN IV 08/15/17 11:30 09/14/17 11:29 08/19/17 06:33 204 MLS/HR Insulin Glargine (Lantus Solostar Pen) 34 units BID SC 08/16/17 09:00 09/13/17 20:59 08/20/17 09:10 34 UNITS Ipratropium [place]ers (Atrovent 0.02% 0.5MG/2.5ML Neb) 0.5 mg Q2R PRN INH 08/16/17 09:30 09/15/17 09:29 08/17/17 20:33 0.5 MG Levalbuterol (Xopenex 1.25MG/ 0.5ML Neb) 1.25 mg Q2R PRN INH 08/16/17 09:30 09/15/17 09:29 08/17/17 20:33 1.25 MG Baclofen (Lioresal Tab) 10 mg TID PO 08/18/17 08:15 09/17/17 08:14 08/20/17 14:21 10 MG Hydromorphone HCl (Dilaudid Inj) 1 mg Q6 PRN IV 08/18/17 08:15 09/01/17 08:14 08/20/17 00:16 1 MG Tramadol HCl (Ultram Tab) 50 mg Q6H PRN PO 08/18/17 08:15 09/17/17 08:14 08/19/17 20:47 50 MG Ceftriaxone Sodium 2000 mg/ Dextrose 70 ml @ 100 mls/hr Q24H IV 08/18/17 16:00 09/01/17 15:59 08/20/17 14:22 100 MLS/HR Lidocaine (Lidoderm Patch 5%) 1 patch QAM TD 08/20/17 08:00 09/19/17 08:59 Miscellaneous (Remove Lidoderm Patch) 1 ea DAILY@21 N/A 08/19/17 21:00 09/18/17 20:59 08/19/17 21:00 1 EA Clonidine HCl (Catapres Tab) 0.1 mg Q6H PRN PO 08/19/17 15:15 09/18/17 15:14 08/20/17 16:46 0.1 MG Heparin Sodium (Porcine) (Heparin 10 Unit/ ml 5 ml Flush) 5 ml PRN PRN FLUSH 08/19/17 17:45 09/18/17 17:44 08/20/17 15:05 5 ML Review of Systems Review of Systems Constitutional: No fever, No chills Neurological: + dizzy, + numbness/tingling, No seizures Endocrine: + tired/sluggish, No excessive thirst, No too hot, No too cold Gastrointestinal: + abdominal pain, + constipation, No indigestion, No nausea, No vomiting, No diarrhea Cardiovascular: No chest pain, No angina, No swelling ankles/feet Respiratory: + shortness of breath, No wheezing, No chronic cough Skin: + problem reported (he sometimes gets a scaly red rash in his buttocks right and left, comes and goes), No rash Musculoskeletal: + joint pain Male : + urinary retention, + infections, + nocturia more than once/night Physical Exam Vital Signs: Vital Signs Past 12 Hours Date Time Temp Pulse Resp B/P (MAP) Pulse Ox O2 Delivery O2 Flow Rate FiO2 08/20/17 16:32 36.8 60 18 178/85 (116) 95 Room Air 08/20/17 08:02 36.8 64 16 167/78 (107) 98 Room Air 08/20/17 08:00 97 Room Air Physical Exam: General Appearance: WD/WN, no apparent distress, + obese (overweight) Eyes: bilateral eyes normal inspection ENT: hearing grossly normal Neck: supple, no adenopathy, no JVD, trachea midline Respiratory/Chest: normal breath sounds, no respiratory distress, no accessory muscle use Cardiovascular: regular rate, rhythm Gastrointestinal: Abdomen: normal abdomen Incision: normal incision Renal: normal renal Hernia: pertinent finding (small umbilical hernia palpated with cough) Genitourinary - Male: Anus / Perineum: normal anus/perineum Sphincter Tone: normal sphincter tone Prostate: normal prostate, pertinent finding (smooth 40 grams) Seminal Vesicles: normal seminal vesicles Extremities: non-tender, no pedal edema, no calf tenderness Neurologic/Psychiatric: alert, normal mood/affect, oriented x 3 Skin: normal color, warm/dry, no rash Lymphatic: no adenopathy Assessment & Plan Assessment & Plan incomplete bladder emptying I think he is a chronic retainer I think he has a large compliant bladder and can store large volumes. This explains his high residual on Thursday without any pain. I think the urinary stasis does contribute to utis. I suggest he void more frequently, like by the clock every 4 hours unless sleeping. He will need to set an alarm to remind him. I do not think he needs to complete an in hospital void trial. I will see him in outpatient soon to follow his residuals. The ct scan showed no sign of upper tract dilation from his high residuals so I do not think they are dangerous.
--- NOTE | 2017-08-20 19:41 | Progress Note ---
Medicine Progress Note Date & Time of Visit: Aug 20, 2017 at 19:35. Subjective patient seen resting in bed, comfortable not in distress states back pain continue to improve no pain on the foot felt weak, BSG found to be 70s, given elma amita, much better denies other symptoms Objective Last 8 Hrs Date Time Temp Pulse Resp B/P (MAP) Pulse Ox O2 Delivery O2 Flow Rate FiO2 08/20/17 18:17 155/71 (99) 08/20/17 16:32 36.8 60 18 178/85 (116) 95 Room Air 08/20/17 15:45 Room Air Physical Exam: General- oriented x 3, not in distress, speaks in sentences with no effort Neck- no JVD Lungs- clear BS BL, no rales/wheezes Heart- regular rhythm; no murmur, normal rate Abdomen- normal bowel sounds, soft, nontender Extremities- Left Foot: dressing in place no pretibial edema, no calf tenderness; peripheral pulses intact Neuro- alert, oriented x 3; no gross focal neurologic deficits Skin- warm & dry Laboratory Results: Last 24 Hours Test 08/19/17 20:25 08/20/17 05:12 08/20/17 07:58 08/20/17 09:15 Bedside Glucose 186 mg/dl 74 mg/dl 155 mg/dl Creatinine 1.71 mg/dl Est Creatinine Clear Calc Drug Dose 54.8 ml/min Estimated GFR () 49.3 Estimated GFR (Non- 42.6 Test 08/20/17 11:12 08/20/17 17:12 Bedside Glucose 148 mg/dl 76 mg/dl Assessment & Plan 62 year old male with history of DM, HTN, CKD 3 presenting with chest and back pain. SEVERE CHEST PAIN, BACK PAIN, RIGHT FLANK PAIN - imaging studies unrevealing Stable thoracic aneurysm serial ce and echo unremarkable - evaluated by Cardiology evaluated by Ortho evaluated by Pain Management - likely Myofascial pain Syndrome - on Baclofen TID PRN Tramadol started Lidoderm patch - improving ABDOMINAL PAIN Abdominal pain CT of the abdomen and pelvis unremarkable. Gallbladder ultrasound is okay - improving SEPSIS SECONDARY TO GROUP B BETA STREP BACTEREMIA INFECTED LEFT TOE ULCER - blood cultures 08/15/17: (+) group B Beta strep blood cultures 08/17/17: negative - MRI Left foot: no signs of osteo - Vanco IV--> changed to Ceftri IV remains afebrile - appreciate ID consult Ceftri IV x 4 weeks via PICC line CBC, CMP weekly while on IV Ceftri ff up with ID, Wound Care consulted [facility] and Dr. Mcmillan s/p Debridement of the Left 1st toe, plantar aspect patient fitted with boot, left foot ff up with [facility] UTI, STAPH AUREUS - cultures: pansensitive on Ceftri IV URINARY RETENTION - prostatomegaly on ct scan Bernstein catheter placed Urology consulted, recommend to remove Bernstein Catheter, trial of voiding continue terazosin ff up with Dr. Larios as outpatient HYPOXIA, RESOLVED - likely from poor breathing mechanics due to pain 08/16/17Ct chest without contrast to rule out any ongoing infection or congestion-unremarkable DM Type 2 - decreased Lantus and adjusted ISS as patient feeling weak when BSG < 100 HBA1c levels. 6.9 History of hypertension. On home medication of Coreg, amlodipine, hydralazine, terazosin. -- BP elevated, from pain? hypoglycemia? Lasix resumed added PRN Clonidine Clonidine PRN ordered History of chronic kidney disease stage III, baseline creatinine around 2.2 to 2.3, presented with creatinine of 2.4. - crea 1.7 now monitor Peripheral vascular disease status post femoral popliteal bypass surgery on aspirin and Plavix. Also on statin. History of thoracic aortic aneurysm. CT of the chest shows stable thoracic aortic aneurysm. Needs followup. Deep venous thrombosis prophylaxis. SCDs for now. Disposition - needs IV Ceftri x 4 weeks PICC line ordered - anticipate d/c home tomorrow with home health services Current Inpatient Medications: Current Inpatient Medications Medications (Trade) Dose Ordered Sig/Domenic Route Start Time Stop Time Status Last Admin Dose Admin Acetaminophen (Tylenol Tab) 650 mg Q4H PRN PO 08/14/17 09:45 09/13/17 09:44 08/18/17 08:21 650 MG Al Hydrox/Mg Hydrox/Simethicone (Maalox Max Susp) 15 ml Q4H PRN PO 08/14/17 09:45 09/13/17 09:44 08/17/17 20:20 15 ML Ondansetron HCl (Zofran Inj) 4 mg Q6H PRN IV 08/14/17 09:45 09/13/17 09:44 08/19/17 04:32 4 MG Nitroglycerin (Nitrostat Tab) 0.4 mg UD PRN SL 08/14/17 09:45 09/13/17 09:44 Amlodipine Besylate (Norvasc Tab) 10 mg DAILY PO 08/15/17 09:00 09/14/17 08:59 08/20/17 09:06 10 MG Aspirin (Ecotrin Tab) 81 mg DAILY PO 08/15/17 09:00 09/14/17 08:59 08/20/17 09:04 81 MG Atorvastatin Calcium (Lipitor Tab) 40 mg DAILY PO 08/15/17 09:00 09/14/17 08:59 08/20/17 09:04 40 MG Carvedilol (Coreg Tab) 37.5 mg BID PO 08/14/17 21:00 09/13/17 20:59 08/20/17 09:05 37.5 MG Cholecalciferol (Vitamin D Tab) 4,000 inter.unit DAILY PO 08/15/17 09:00 09/14/17 08:59 08/20/17 09:03 4,000 INTER.UNIT Clopidogrel Bisulfate (plAVix TAB) 75 mg DAILY PO 08/15/17 09:00 09/14/17 08:59 08/20/17 09:04 75 MG Hydralazine HCl (Apresoline Tab) 50 mg TID PO 08/14/17 14:00 09/13/17 13:59 08/20/17 14:21 50 MG Terazosin HCl (Hytrin Cap) 4 mg HS PO 08/14/17 21:00 09/13/17 20:59 08/19/17 21:01 4 MG Glucose (Glucose 40% Gel) 15-30 GRAMS 15 GRAMS... UD PRN PO 08/14/17 12:00 09/13/17 11:59 Glucose (Glucose Chew Tab) 4-8 Tablets 4 Tabl... UD PRN PO 08/14/17 12:00 09/13/17 11:59 Dextrose (Dextrose 50% 50ML Syringe) 25-50ML OF 50% DW IV FOR... UD PRN IV 08/14/17 12:00 09/13/17 11:59 Glucagon (Glucagon Inj) 1 mg UD PRN SQ 08/14/17 12:00 09/13/17 11:59 Miscellaneous (Iv Fluids Completed) 1 ea PRN PRN N/A 08/14/17 12:45 08/14/18 12:44 Insulin Aspart (novoLOG ASPART) SLIDING SCALE G... ACHS SC 08/15/17 07:00 09/13/17 10:59 08/18/17 20:56 1 UNITS Promethazine HCl 12.5 mg/Sodium Chloride 50.5 ml @ 204 mls/hr Q6H PRN IV 08/15/17 11:30 09/14/17 11:29 08/19/17 06:33 204 MLS/HR Ipratropium [place] (Atrovent 0.02% 0.5MG/2.5ML Neb) 0.5 mg Q2R PRN INH 08/16/17 09:30 09/15/17 09:29 08/17/17 20:33 0.5 MG Levalbuterol (Xopenex 1.25MG/ 0.5ML Neb) 1.25 mg Q2R PRN INH 08/16/17 09:30 09/15/17 09:29 08/17/17 20:33 1.25 MG Baclofen (Lioresal Tab) 10 mg TID PO 08/18/17 08:15 09/17/17 08:14 08/20/17 14:21 10 MG Hydromorphone HCl (Dilaudid Inj) 1 mg Q6 PRN IV 08/18/17 08:15 09/01/17 08:14 08/20/17 00:16 1 MG Tramadol HCl (Ultram Tab) 50 mg Q6H PRN PO 08/18/17 08:15 09/17/17 08:14 08/19/17 20:47 50 MG Ceftriaxone Sodium 2000 mg/ Dextrose 70 ml @ 100 mls/hr Q24H IV 08/18/17 16:00 09/01/17 15:59 08/20/17 14:22 100 MLS/HR Lidocaine (Lidoderm Patch 5%) 1 patch QAM TD 08/20/17 08:00 09/19/17 08:59 Miscellaneous (Remove Lidoderm Patch) 1 ea DAILY@21 N/A 08/19/17 21:00 09/18/17 20:59 08/19/17 21:00 1 EA Clonidine HCl (Catapres Tab) 0.1 mg Q6H PRN PO 08/19/17 15:15 09/18/17 15:14 08/20/17 16:46 0.1 MG Heparin Sodium (Porcine) (Heparin 10 Unit/ ml 5 ml Flush) 5 ml PRN PRN FLUSH 08/19/17 17:45 09/18/17 17:44 08/20/17 15:05 5 ML Insulin Glargine (Lantus Solostar Pen) 25 units BID SC 08/20/17 20:00 09/13/17 20:59
[2017-08-20] MEDS ORDERED: INSULIN GLARGINE SOLOSTAR 100 UNITS/ML 3 ML PEN SC SCH (20:00)
[2017-08-20] MEDS ORDERED: CLONIDINE HCL 0.1 MG TAB PO PRN (23:45)
[2017-08-21 04:05] VITALS: BP 164/78; PULSE 60; TEMP 36.8; O2SAT 98
[2017-08-21] MEDS: INSULIN ASPART 100 UNITS/ML 3 ML PEN SC SCH ×2 (06:30→11:00)
[2017-08-21 06:42] LABS: CREATININE 1.58 mg/dl (0.60-1.40)
[2017-08-21 07:14] VITALS: BP 174/80; PULSE 60; TEMP 36.8; O2SAT 97
[2017-08-21 07:25] VITALS: BP 181/84; PULSE 61
[2017-08-21] MEDS: BACLOFEN 10 MG TAB PO SCH ×2 (07:31→13:52)
[2017-08-21] MEDS: ASPIRIN 81 MG ECTAB PO SCH (07:31)
[2017-08-21] MEDS: CARVEDILOL 25 MG TAB PO SCH (07:31)
[2017-08-21] MEDS: CHOLECALCIFEROL 1000 INTER.UNIT TAB PO SCH (07:31)
[2017-08-21] MEDS: ATORVASTATIN 20 MG TAB PO SCH (07:31)
[2017-08-21] MEDS: CLOPIDOGREL BISULFATE 75 MG TAB PO SCH (07:32)
[2017-08-21] MEDS: AMLODIPINE BESYLATE 5 MG TAB PO SCH (07:32)
[2017-08-21] MEDS: LIDODERM (LIDOCAINE) PATCH 5% TD SCH (07:32)
[2017-08-21 09:00] VITALS: BP 133/67; PULSE 65
[2017-08-21] MEDS ORDERED: INSULIN GLARGINE SOLOSTAR 100 UNITS/ML 3 ML PEN SC SCH (09:00)
[2017-08-21] MEDS ORDERED: FUROSEMIDE 20 MG TAB PO SCH (09:00)
[2017-08-21 13:51] VITALS: BP 157/69; PULSE 61
--- NOTE | 2017-08-21 15:05 | Progress Note ---
Medicine Progress Note Date & Time of Visit: Aug 21, 2017 at 14:58. Subjective patient seen resting in bed, comfortable in good spirits back pain continues to improve denies fever/chills voiding well no toe pain denies other symptoms states he is ready and would like to to be discharged today Objective Last 8 Hrs Date Time Temp Pulse Resp B/P (MAP) Pulse Ox O2 Delivery O2 Flow Rate FiO2 08/21/17 13:51 61 157/69 (98) 08/21/17 09:00 65 133/67 (89) 08/21/17 07:25 61 181/84 (116) 08/21/17 07:25 Room Air 08/21/17 07:14 36.8 60 18 174/80 (111) 97 Room Air Physical Exam: General- oriented x 3, not in distress, speaks in sentences with no effort Neck- no JVD Lungs- clear breath sounds bilaterally Heart- normal rate, regular rhythm; no murmurs Abdomen- normal bowel sounds, soft, nontender Extremities- Left Foot:healing small ulcer on the plantar aspect of 1st toe no pretibial edema, no calf tenderness; peripheral pulses intact Neuro- alert, oriented x 3; no gross focal neurologic deficits Skin- warm & dry Laboratory Results: Last 24 Hours Test 08/20/17 17:12 08/20/17 20:29 08/20/17 23:15 08/21/17 05:36 Bedside Glucose 76 mg/dl 223 mg/dl 173 mg/dl Creatinine 1.58 mg/dl Est Creatinine Clear Calc Drug Dose 59.3 ml/min Estimated GFR () 54.3 Estimated GFR (Non- 46.8 Test 08/21/17 07:30 08/21/17 11:20 Bedside Glucose 74 mg/dl 147 mg/dl Assessment & Plan 62 year old male with history of DM, HTN, CKD 3 presenting with chest and back pain. SEVERE CHEST PAIN, BACK PAIN, RIGHT FLANK PAIN - imaging studies unrevealing Stable thoracic aneurysm serial ce and echo unremarkable - evaluated by Cardiology evaluated by Ortho evaluated by Pain Management - likely Myofascial pain Syndrome - placed on Baclofen TID PRN Tramadol Lidoderm patch - pain significantly improved continue Baclofen TID, and PRN Tramadol - wean off as outpatient ABDOMINAL PAIN Abdominal pain CT of the abdomen and pelvis unremarkable. Gallbladder ultrasound is okay - resolved SEPSIS SECONDARY TO GROUP B BETA STREP BACTEREMIA INFECTED LEFT TOE ULCER - blood cultures 08/15/17: (+) group B Beta strep blood cultures 08/17/17: negative - MRI Left foot: no signs of osteo - Vanco IV--> changed to Ceftri IV remains afebrile - appreciate ID consult Lavelle Ellison ID recommendations: Ceftri IV x 4 weeks via PICC line (tentative stop date 09/14/17) CBC, CMP weekly while on IV Ceftri ff up with ID, Wound Care - consulted Wound [facility] and Dr. Mcmillan s/p Debridement of the Left 1st toe, plantar aspect patient fitted with special boot, left foot ff up with [facility] UTI, STAPH AUREUS - cultures: pansensitive on Ceftri IV URINARY RETENTION - prostatomegaly on ct scan Bernstein catheter placed Urology consulted, recommend to remove Bernstein Catheter, trial of voiding continue terazosin ff up with Dr. Larios as outpatient HYPOXIA, RESOLVED - likely from poor breathing mechanics due to pain 08/16/17Ct chest without contrast to rule out any ongoing infection or congestion-unremarkable DM Type 2 HBA1c levels. 6.9 resume usual Insulin regimen History of hypertension. -- BP elevated, from pain? -- patient not comfortable increasing his BP medications -- resume usual regimen and ff up BP closely as outpatient History of chronic kidney disease stage III, - baseline creatinine around 2.2 to 2.3, presented with creatinine of 2.4. - crea 1.7 now monitor Peripheral vascular disease status post femoral popliteal bypass surgery on aspirin and Plavix. Also on statin. History of thoracic aortic aneurysm. CT of the chest shows stable thoracic aortic aneurysm. Needs followup. Disposition - d/c home with home health services ff up with PCP in 3-5 days ff up with Resort Desk Clerk and ID in 1 week Current Inpatient Medications: Current Inpatient Medications Medications (Trade) Dose Ordered Sig/Domenic Route Start Time Stop Time Status Last Admin Dose Admin Acetaminophen (Tylenol Tab) 650 mg Q4H PRN PO 08/14/17 09:45 09/13/17 09:44 08/18/17 08:21 650 MG Al Hydrox/Mg Hydrox/Simethicone (Maalox Max Susp) 15 ml Q4H PRN PO 08/14/17 09:45 09/13/17 09:44 08/17/17 20:20 15 ML Ondansetron HCl (Zofran Inj) 4 mg Q6H PRN IV 08/14/17 09:45 09/13/17 09:44 08/19/17 04:32 4 MG Nitroglycerin (Nitrostat Tab) 0.4 mg UD PRN SL 08/14/17 09:45 09/13/17 09:44 Amlodipine Besylate (Norvasc Tab) 10 mg DAILY PO 08/15/17 09:00 09/14/17 08:59 08/21/17 07:32 10 MG Aspirin (Ecotrin Tab) 81 mg DAILY PO 08/15/17 09:00 09/14/17 08:59 08/21/17 07:31 81 MG Atorvastatin Calcium (Lipitor Tab) 40 mg DAILY PO 08/15/17 09:00 09/14/17 08:59 08/21/17 07:31 40 MG Carvedilol (Coreg Tab) 37.5 mg BID PO 08/14/17 21:00 09/13/17 20:59 08/21/17 07:31 37.5 MG Cholecalciferol (Vitamin D Tab) 4,000 inter.unit DAILY PO 08/15/17 09:00 09/14/17 08:59 08/21/17 07:31 4,000 INTER.UNIT Clopidogrel Bisulfate (plAVix TAB) 75 mg DAILY PO 08/15/17 09:00 09/14/17 08:59 08/21/17 07:32 75 MG Terazosin HCl (Hytrin Cap) 4 mg HS PO 08/14/17 21:00 09/13/17 20:59 08/20/17 20:39 4 MG Glucose (Glucose 40% Gel) 15-30 GRAMS 15 GRAMS... UD PRN PO 08/14/17 12:00 09/13/17 11:59 Glucose (Glucose Chew Tab) 4-8 Tablets 4 Tabl... UD PRN PO 08/14/17 12:00 09/13/17 11:59 Dextrose (Dextrose 50% 50ML Syringe) 25-50ML OF 50% DW IV FOR... UD PRN IV 08/14/17 12:00 09/13/17 11:59 Glucagon (Glucagon Inj) 1 mg UD PRN SQ 08/14/17 12:00 09/13/17 11:59 Miscellaneous (Iv Fluids Completed) 1 ea PRN PRN N/A 08/14/17 12:45 08/14/18 12:44 Insulin Aspart (novoLOG ASPART) SLIDING SCALE G... ACHS SC 08/15/17 07:00 09/13/17 10:59 08/20/17 20:41 1 UNITS Promethazine HCl 12.5 mg/Sodium Chloride 50.5 ml @ 204 mls/hr Q6H PRN IV 08/15/17 11:30 09/14/17 11:29 08/19/17 06:33 204 MLS/HR Ipratropium [place] (Atrovent 0.02% 0.5MG/2.5ML Neb) 0.5 mg Q2R PRN INH 08/16/17 09:30 09/15/17 09:29 08/17/17 20:33 0.5 MG Levalbuterol (Xopenex 1.25MG/ 0.5ML Neb) 1.25 mg Q2R PRN INH 08/16/17 09:30 09/15/17 09:29 08/17/17 20:33 1.25 MG Baclofen (Lioresal Tab) 10 mg TID PO 08/18/17 08:15 09/17/17 08:14 08/21/17 13:52 10 MG Hydromorphone HCl (Dilaudid Inj) 1 mg Q6 PRN IV 08/18/17 08:15 09/01/17 08:14 08/20/17 00:16 1 MG Tramadol HCl (Ultram Tab) 50 mg Q6H PRN PO 08/18/17 08:15 09/17/17 08:14 08/19/17 20:47 50 MG Ceftriaxone Sodium 2000 mg/ Dextrose 70 ml @ 100 mls/hr Q24H IV 08/18/17 16:00 09/01/17 15:59 08/20/17 14:22 100 MLS/HR Lidocaine (Lidoderm Patch 5%) 1 patch QAM TD 08/20/17 08:00 09/19/17 08:59 Miscellaneous (Remove Lidoderm Patch) 1 ea DAILY@21 N/A 08/19/17 21:00 09/18/17 20:59 08/19/17 21:00 1 EA Heparin Sodium (Porcine) (Heparin 10 Unit/ ml 5 ml Flush) 5 ml PRN PRN FLUSH 08/19/17 17:45 09/18/17 17:44 08/21/17 05:37 5 ML Furosemide (Lasix Tab) 20 mg BID17 PO 08/21/17 09:00 09/20/17 08:59 08/21/17 07:30 20 MG Clonidine HCl (Catapres Tab) 0.1 mg Q6H PRN PO 08/20/17 23:45 09/18/17 15:14 08/20/17 23:57 0.1 MG Hydralazine HCl (Apresoline Tab) 75 mg TID PO 08/21/17 14:00 09/13/17 13:59 08/21/17 13:53 75 MG Insulin Glargine (Lantus Solostar Pen) 20 units BID SC 08/21/17 09:00 09/13/17 08:59 08/21/17 09:00 20 UNITS
[2017-08-21] MEDS ORDERED: ULT50X PO (15:08)
[2017-08-21] MEDS ORDERED: LRS10 PO (15:08)
--- NOTE | 2017-08-21 15:19 | Discharge Instructions ---
Discharge Instructions Date of Service Aug 21, 2017. Admission Reason for Admission: Right Sided Chest Pain Discharge Discharge Diagnosis / Problem: BLOOD STREAM INFECTION, INFECTED LEFT TOE ULCER Discharge Goals Goal(s): Diagnostic testing, Therapeutic intervention Activity Recommendations Activity Limitations: as noted below (NO HEAVY EXERTION UNTIL RE-EVALUTED BY PRIMARY CARE PHYSICIAN, ALWAYS USE THE BOOT FOR YOUR LEFT FOOT) Exercise/Sports Limitations: until after follow-up appointment Driving or Machine Use: NO DRIVING WHILE TAKING BACLOFEN AND TRAMADOL . Instructions / Follow-Up Instructions / Follow-Up PLEASE REFER TO YOUR NEW MEDICATION LIST AND FOLLOW INSTRUCTIONS CAREFULLY. CALL YOUR PRIMARY CARE PHYSICIAN OR RETURN TO ER IMMEDIATELY IF WITH RECURRENCE OF SYMPTOMS, FEVER/CHILLS, NAUSEA, INCREASING PAIN, INCREASING REDNESS/PAIN/DISCHARGE/ BLEEDING ON YOUR PICC LINE SITE OR LEFT FOOT ULCER. FOLLOW UP WITH DR. ALDRICH (ASSOCIATE OF DR. HENDERSON) ON Thursday08/25/17 AT 2:05PM FOLLOW UP WITH [facility] IN [address] FOLLOW UP WITH DR. COLON IN 1-2 WEEKS. Current Hospital Diet Patient's current hospital diet: AHA Diet (Heart Healthy), Diabetes Type 2 Diet Discharge Diet Recommended Diet: AHA Diet (Heart Healthy), Diabetes Type 2 Diet Procedures Procedures Performed: DEBRIDEMENT OF LEFT TOE ULCER Pending Studies Studies pending at discharge: yes List of pending studies: WEEKLY BLOOD WORK: CBC AND CMP WHILE ON IV ANTIBIOTICS Laboratory Results Hemoglobin A1c Test 08/14/17 05:18 Range/Units Estimated Average Glucose 151 mg/dl Hemoglobin A1c 6.9 H 4.5-5.6 % Lipid Panel Test 08/15/17 05:36 Range/Units Triglycerides Level 90 0-150 mg/dl Cholesterol Level 121 0-200 mg/dl HDL Cholesterol 39 mg/dl Cholesterol/HDL Ratio 3.1 LDL Cholesterol, Calculated 64 mg/dl Medical Emergencies . Who to Call and When: Medical Emergencies: If at any time you feel your situation is an emergency, please call 911 immediately. . Non-Emergent Contact Non-Emergency issues call your: Primary Care Provider Call Non-Emergent contact if: you have a fever, your pain is not controlled, your pain is worsening, wound has increased drainage, wound has increased redness, wound has increased pain, you have any medication questions . . "Provider Documentation" section prepared by Saturnino Delgado. . VTE Core Measure Inpt VTE Proph given/why not?: SCD's
--- NOTE | 2017-08-21 15:20 | Discharge Summary ---
Discharge Summary Date of Service Aug 21, 2017. Discharge Summary Admission Date: Aug 15, 2017 at 20:22 Discharge Date: Aug 21, 2017 Hospital Course 62 year old male with history of DM, HTN, CKD 3 presenting with chest and back pain. SEVERE CHEST PAIN, BACK PAIN, RIGHT FLANK PAIN - imaging studies unrevealing Stable thoracic aneurysm serial ce and echo unremarkable - evaluated by Cardiology evaluated by Ortho evaluated by Pain Management - likely Myofascial pain Syndrome - placed on Baclofen TID PRN Tramadol Lidoderm patch - pain significantly improved continue Baclofen TID, and PRN Tramadol - wean off as outpatient ABDOMINAL PAIN Abdominal pain CT of the abdomen and pelvis unremarkable. Gallbladder ultrasound is okay - resolved SEPSIS SECONDARY TO GROUP B BETA STREP BACTEREMIA INFECTED LEFT TOE ULCER - blood cultures 08/15/17: (+) group B Beta strep blood cultures 08/17/17: negative - MRI Left foot: no signs of osteo - Vanco IV--> changed to Ceftri IV remains afebrile - appreciate ID consult Lavelle Ellison ID recommendations: Ceftri IV x 4 weeks via PICC line (tentative stop date 09/14/17) CBC, CMP weekly while on IV Ceftri ff up with ID, Wound Care - consulted Wound Care S[facility] and Dr. Mcmillan s/p Debridement of the Left 1st toe, plantar aspect patient fitted with special boot, left foot ff up with [facility] UTI, STAPH AUREUS - cultures: pansensitive on Ceftri IV URINARY RETENTION - prostatomegaly on ct scan Bernstein catheter placed Urology consulted, recommend to remove Bernstein Catheter, trial of voiding continue terazosin ff up with Dr. Larios as outpatient HYPOXIA, RESOLVED - likely from poor breathing mechanics due to pain 08/16/17Ct chest without contrast to rule out any ongoing infection or congestion-unremarkable DM Type 2 HBA1c levels. 6.9 resume usual Insulin regimen History of hypertension. -- BP elevated, from pain? -- patient not comfortable increasing his BP medications -- resume usual regimen and ff up BP closely as outpatient History of chronic kidney disease stage III, - baseline creatinine around 2.2 to 2.3, presented with creatinine of 2.4. - crea 1.7 now monitor Peripheral vascular disease status post femoral popliteal bypass surgery on aspirin and Plavix. Also on statin. History of thoracic aortic aneurysm. CT of the chest shows stable thoracic aortic aneurysm. Needs followup. Disposition - d/c home with home health services ff up with PCP in 3-5 days ff up with Licensed Embalmer and ID in 1 week Total time spent on discharge = This includes examination of the patient, discharge planning, medication reconciliation, and communication with other providers.
[2017-08-21] MEDS: CEFTRIAXONE SOD INJ 2,000 MG in DEXTROSE 5% 50ML 50 ML IV SCH (15:37)
[2017-08-21 15:59] VITALS: BP 157/69; PULSE 61; TEMP 36.8; O2SAT 97
== END 2017-08-21 17:17 | disposition home health service (06) | DRG 854 ==
LOC: EDBD 05:14 → C.EDB 05:14 → C.2T 09:40 → ENRESERV 10:13 → OBSVTOIN 08-15 20:22 → ENRESERV 08-18 11:48 → C.MED 08-18 12:55 → C.MS4W 08-19
PROVIDERS: ADMIT Internal Medicine; ATTEND Internal Medicine
PROC: 02HV33Z Insertion of Infusion Device into Superior Vena Cava, Percutaneous Approach (ICD-10-PCS; 2017-08-19)
PROC: 0JBR0ZZ Excision of Left Foot Subcutaneous Tissue and Fascia, Open Approach (ICD-10-PCS; principal; 2017-08-21)
DX: A40.1 Sepsis due to streptococcus, group B (principal); E11.621 Type 2 diabetes mellitus with foot ulcer; L97.529 Non-pressure chronic ulcer of other part of left foot with unspecified severity; L08.89 Other specified local infections of the skin and subcutaneous tissue; N39.0 Urinary tract infection, site not specified; B95.61 Methicillin susceptible Staphylococcus aureus infection as the cause of diseases classified elsewhere; M79.1 Myalgia; R10.11 Right upper quadrant pain; R09.02 Hypoxemia; N40.1 Benign prostatic hyperplasia with lower urinary tract symptoms; R33.8 Other retention of urine; R39.14 Feeling of incomplete bladder emptying; M47.815 Spondylosis without myelopathy or radiculopathy, thoracolumbar region; M62.830 Muscle spasm of back; L84 Corns and callosities; I71.2 Thoracic aortic aneurysm, without rupture; K76.0 Fatty (change of) liver, not elsewhere classified; N28.1 Cyst of kidney, acquired; I13.10 Hypertensive heart and chronic kidney disease without heart failure, with stage 1 through stage 4 chronic kidney disease, or unspecified chronic kidney disease; E11.22 Type 2 diabetes mellitus with diabetic chronic kidney disease; E11.40 Type 2 diabetes mellitus with diabetic neuropathy, unspecified; N18.3 Chronic kidney disease, stage 3 (moderate); I73.9 Peripheral vascular disease, unspecified; I25.10 Atherosclerotic heart disease of native coronary artery without angina pectoris; E66.3 Overweight; Z79.899 Other long term (current) drug therapy; Z79.02 Long term (current) use of antithrombotics/antiplatelets; Z79.4 Long term (current) use of insulin; Z79.82 Long term (current) use of aspirin; Z95.828 Presence of other vascular implants and grafts; Z87.440 Personal history of urinary (tract) infections; Z68.28 Body mass index [BMI] 28.0-28.9, adult; Z82.49 Family history of ischemic heart disease and other diseases of the circulatory system; Z83.3 Family history of diabetes mellitus

== ENCOUNTER 2017-09-12 15:21 | Emergency (ER) | payer OTHER ==
[~2017-09-12] VITALS: Ht 182.9 cm; Wt 76.6 kg
[~2017-09-12 15:21] MED LIST changes: +CEFT1INJ57 IV; +LRS10 PO; -OXYC1TAB3 PO; +ULT50X PO
[2017-09-12 15:36] VITALS: BP 140/75; PULSE 65; TEMP 36.8; O2SAT 100; Ht 182.9 cm; Wt 76.6 kg
--- NOTE | 2017-09-12 16:14 | EMERGENCY ROOM VISIT NOTE ---
History First contact with patient: 15:39 Chief Complaint: PICC LINE CLOTTED Stated Complaint: PICC LINE BACKING UP, BLOOD IN LINE History of Present Illness The patient is a 62 year old male, history of recent diabetic ulcer of the left great toe, who presents to the Emergency Room with complaints of leakage from his PICC line on his left upper extremity. The patient is currently self administering IV Rocephin for a foot infection. He also follows with [facility]. The patient reports that he administer the antibiotic around noon time. Approximately one half hour later, he noticed blood was backed up in the PICC line, and was also leaking out of the port. The patient reported that the antibiotic went in fine without any resistance. He did not attempt to flush the port and line, afraid that he would potentially push the blood clots into his system. The patient denies any discomfort in the arm or chest. Review of Systems 10 system review was performed and was negative except for pertinent positives and negatives as indicated in history of present illness Past Medical/Surgical History Medical Problems: (1) Chest pain (2) Diabetes (3) Diabetic foot infection (4) HTN (hypertension) (5) Sepsis (6) Septicemia due to group B Streptococcus Social History Smoking Status: Never Smoker Alcohol Use: none Drug Use: none Marital Status: single Housing Status: lives with family Occupation Status: disabled Current/Historical Medications Scheduled Amlodipine (Norvasc), 10 MG PO DAILY Aspirin (Aspirin Ec), 81 MG PO DAILY Atorvastatin (Lipitor), 40 MG PO DAILY Baclofen (Baclofen), 10 MG PO TID Carvedilol (Coreg), 37.5 MG PO AMPM Ceftriaxone Sod (Rocephin), 2 GM IV DAILY Cholecalciferol (Vitamin D), 4,000 UNITS PO DAILY Clopidogrel Bisulfate (Plavix), 75 MG PO DAILY Furosemide (Lasix), 20 MG PO BID Hydralazine HCl (Hydralazine HCl), 50 MG PO TID Insulin Glargine (Lantus Solostar), 34 UNITS SC Q12 Spironolactone (Aldactone), 12.5 MG PO DAILY Terazosin Hcl (Hytrin), 4 MG PO HS Scheduled PRN Tramadol HCl (Tramadol HCl), 50 MG PO Q6H PRN for Pain Physical Exam Vital Signs Date Time Temp Pulse Resp B/P (MAP) Pulse Ox O2 Delivery O2 Flow Rate FiO2 09/12/17 15:36 36.8 65 18 140/75 100 Room Air Physical Exam CONSTITUTIONAL: Healthy and well nourished. Alert and oriented X 3 with positive affect. HEENT: Normocephalic, atraumatic. Pupils equal, round and reactive. NECK: Full active range of motion without discomfort. RESPIRATORY: Clear to auscultation bilaterally with no wheezing, crackles, rhonchi or stridor. CARDIOVASCULAR: Regular rate and rhythm with no murmurs, rubs or gallops. MUSCULOSKELETAL: Examination of the anterior medial aspect of the left upper arm shows a PICC line with minimal erythema around the insertion site. There is a trace of blood in the dependent portion of the peripheral PICC line, and no obvious leakage or breakage at the port. There is no tenderness to palpation at the insertion site. Distal pulses are intact. INTEGUMENTARY: No rash or other significant dermatologic conditions noted. NEUROLOGIC: No focal neurologic deficits noted. Medical Decision & Procedures ED Course Patient history and physical exam were performed. Nurse's notes were reviewed. Vital signs were reviewed and were normal. IV team was consulted, and came to the emergency department for PICC line evaluation. They supposedly change the port and was able to flush to successfully with heparin. The patient was instructed to return to the emergency department for any further PICC line complications. The patient reports that he has an appointment on Thursday to have the PICC line removed. Medical Decision Blood Pressure Screening Patient's blood pressure: Normal blood pressure Impression Primary Impression: PIC line (peripherally inserted central catheter) flush Departure Information Referrals Chele Cullen M.D. (PCP) Patient Instructions My [facility]
== END 2017-09-12 16:42 | disposition home or self-care (01) ==
LOC: C.EDB 15:24 → C.EDD 16:42
DX: Z45.2 Encounter for adjustment and management of vascular access device (principal); T82.534A Leakage of infusion catheter, initial encounter; Y84.8 Other medical procedures as the cause of abnormal reaction of the patient, or of later complication, without mention of misadventure at the time of the procedure; E11.9 Type 2 diabetes mellitus without complications; I10 Essential (primary) hypertension; Z86.19 Personal history of other infectious and parasitic diseases; Z79.02 Long term (current) use of antithrombotics/antiplatelets; Z79.4 Long term (current) use of insulin; Z79.82 Long term (current) use of aspirin; Z79.899 Other long term (current) drug therapy

== ENCOUNTER 2018-12-15 14:07 | Observation (INO) ==
--- OUTSIDE RECORDS SUMMARY | 2018-12-15 14:10 | External Medical Summary | Continuity of Care Document ---
:1955 Author Name Aorldo Sanchez, Provider Address Unavailable Unavailable , Care Team Providers Name Role Phone Marla Sanchez, Allen Aranda Unavailable [email or web address] PCP, UNKNOWN Unavailable Unavailable Problems Active medical history not documented Allergies and Adverse Reactions No Known Drug Allergies (Allergy) Medications Baclofen TABS Refills: 0 Atrovent HFA AERS Refills: 0 Dilaudid TABS Refills: 0 Lantus SOLN Refills: 0 Vancomycin HCl SOLR Refills: 0 Zosyn SOLN Refills: 0 Phenergan TABS Refills: 0 Norvasc TABS Refills: 0 Ecotrin Low Strength 81 MG Oral Tablet Delayed Release Refills: 0 Vitamin D TABS Refills: 0 Lipitor TABS Refills: 0 Plavix 75 MG Oral Tablet Refills: 0 Coreg CR CP24 Refills: 0 Hytrin CAPS Refills: 0 hydrALAZINE HCl TABS Refills: 0 Maalox SUSP Refills: 0 Zofran TABS Refills: 0 Procedures History of cardiac catheterization Statu s: Completed History of angioplasty Status: Completed History of rotator cuff repair Status: C ompleted History of coronary artery stent placement Status: Completed Immunizations Immunizations not documented Plan of Treatment Planned Observations Planned Goals not documented Results No Known Results Results not documented Encounters Appointment; Barbara Valderrama DO 08-Sep-2017 10:30 Encounter Diagnosis: Problem not documented
[2018-12-15 14:59] LABS: Basophils # (auto) 0.02 K/uL (0-0.2); Basophils % (auto) 0.3 %; Eosinophils # (auto) 0.05 K/uL (0-0.5); Eosinophils % (auto) 0.9 %; Hematocrit (blood only) 34.6 % (42-52); Hemoglobin 12.3 g/dL (14.0-18.0); Immature Granulocytes # (auto) 0.01 K/uL (0.00-0.02); Immature Granulocytes % (auto) 0.2 %; Lymphocytes # (auto) 1.27 K/uL (1.2-3.4); Lymphocytes % (auto) 21.7 %; Mean Corpuscular Hgb Conc 35.5 g/dL (32-36); Mean Corpuscular Volume 84.8 fL (80-100); Mean Platelet Volume 9.3 fL (7.4-10.4); Monocytes # (auto) 0.46 K/uL (0.11-0.59); Monocytes % (auto) 7.9 %; Neutrophils # (auto) 4.03 K/uL (1.4-6.5); Platelet Count 195 K/uL (130-400); RDW Coefficient of Variation 13.5 % (11.5-14.5); RDW Standard Deviation 41.3 fL (36.4-46.3); Red Blood Count 4.08 M/uL (4.7-6.1); White Blood Count 5.84 K/uL (4.8-10.8)
[2018-12-15 15:07] LABS: Alanine Aminotransferase 37 U/L (12-78); Albumin Level 4.1 gm/dl (3.4-5.0); Aspartate Aminotransferase 19 U/L (15-37); BUN Creatinine Ratio 14.8 (10-20); Blood Urea Nitrogen 37 mg/dl (7-18); Calcium 8.9 mg/dl (8.5-10.1); Carbon Dioxide 24 mmol/L (21-32); Chloride 104 mmol/L (98-107); Creatinine Clr Calc Pharmacy 36.4 ml/min; Est GFR (African American) 30.5; Est GFR (Non-African American) 26.3; Glucose 246 mg/dl (70-99); Potassium 3.9 mmol/L (3.5-5.1); Sodium 135 mmol/L (136-145)
[2018-12-15 15:12] LABS: Albumin Globulin Ratio 1.1 (0.9-2); Alkaline Phosphatase 119 U/L (45-117); Bilirubin,Total 0.9 mg/dl (0.2-1); Globulin 3.9 gm/dl (2.5-4.0); Troponin I < 0.015 ng/ml (0-0.045)
--- NOTE | 2018-12-15 15:17 | XRay Report ---
XR chest 1V portable CLINICAL HISTORY: Chest Pain dyspnea COMPARISON STUDY: 08/15/2017 FINDINGS: The bones soft tissues and hemidiaphragms are normal. The cardiomediastinal silhouette is n ormal. The lungs are clear. The pulmonary vasculature is normal. IMPRESSION: Negative chest. The above report was generated using voice recognition software. It may contain grammatical, syntax or spelling errors. Electronically signed by: Chele Ojeda M.D. 12/15/2018 3:15 PM
--- NOTE | 2018-12-15 15:37 | Emergency Department Note ---
ED Visit Note I took a history and physical exam. I coordinated management of the patient with Dr. Laura. .
[2018-12-15 15:38] LABS: D Dimer 230 ug/L FEU (0-500)
[2018-12-15] MEDS ORDERED: ONDANSETRON INJ 2 MG/ML 2 ML VIAL IV STA (16:22)
--- NOTE | 2018-12-15 16:27 | CT Scan Report ---
CT OF THE ABDOMEN AND PELVIS WITHOUT CONTRAST CLINICAL HISTORY: Elevated lipase and R shoulder pain COMPARISON STUDY: CT of the abdomen and pelvis August 14, 2017. TECHNIQUE: Axial images of the abdomen and pelvis were obtained without IV contrast. Images were revi ewed in the axial, sagittal, and coronal planes. Automated exposure control was utilized for the charlie dy. A dose lowering technique was utilized adhering to the principles of ALARA. FINDINGS: Numerous calcifications within each renal sinus likely reflect vascular calcifications. Sen sitivity for detection of renal calculi is diminished. There are no ureteral calculi. There is no hyd ronephrosis or hydroureter. Water attenuation bilateral renal lesions are suboptimally assessed on th is unenhanced exam but favor cysts. Unenhanced images of the liver, right adrenal gland and spleen ar e normal. Left adrenal hypodense nodules are benign. Appearance of the pancreas is unremarkable on th is unenhanced exam. There is no peripancreatic infiltration or fluid. There is no biliary or pancreat ic ductal dilatation. There is no peripancreatic or pericholecystic infiltration. There is extensive plaque of the abdominal aorta. There is no evidence for a bowel obstruction. The appendix is normal. There is no lymphadenopathy. No suspicious osseous lesions are noted. IMPRESSION: 1. Normal CT appearance of the pancreas. 2. No acute process within the abdomen or pelvis on unenhanced exam. Electronically signed by: Jamil Reyes M.D. 12/15/2018 4:26 PM
[2018-12-15] MEDS ORDERED: SODIUM CHLORIDE 0.9% 1000ML 1,000 ML IV SCH (16:30)
--- NOTE | 2018-12-15 18:01 | Emergency Department Note ---
Entered by Lana Woodard acting as a scribe for History of Present Illness General Chief complaint: Chest Pain Stated complaint: PAIN ON R SIDE, BACK, FRONT, SOB Time Seen by Provider: 12/15/18 14:44 Source: patient History of Present Illness Onset (ago): day(s) (today) Location: chest Pain Consistency: + other (episode) Maximum Pain Intensity: 9 Quality: + other (episode) Exacerbated By: + other (deep breathing); not by movement Associated symptoms: + denies other symptoms (leg swelling, constipation, diarrhea, abdominal pain, hemoptysis), + diaphoresis, + fever/chills (chills) and + other (right shoulder pain, right arm pain tingling and numbness) The patient is a 63 year old male who present to the ED with complaints of an episode of chest pain starting today. The patient states that a week ago he s tarted having pain behind his right shoulder blade. He notes that he doesnt know caused it as he hadnt had recent trauma to the area. He states that since it started, it began to radiate down his right arm and cause it to be numb and tingly. He states that he tried a topical cream on it and it went away for 24 hours, but came right back. He reports that he came to the ED because today it started radiating to the right side of his chest. He notes that the pain is worse with deep breathing. He notes that the pain made him vomit twice now. The patient complains of diaphoresis and chills. He notes a history of AAA, but had a ultrasound a month ago that showed it was stable. The patient denies the pain being worse with movement, taking anything for his pain, leg swelling, recent travel, recent surgeries, constipation, diarrhea, abdominal pain, hemoptysis, and a history of blood clots or a clotting disorder. Home Medications Home Medications Medication Instructions Recorded Confirmed Type amlodipine 10 mg PO DAILY 12/15/18 12/15/18 History aspirin [Aspir-81] 81 mg PO DAILY 12/15/18 12/15/18 History atorvastatin 40 mg PO DAILY 12/15/18 12/15/18 History carvedilol [Coreg] 37.5 mg PO BID 12/15/18 12/15/18 History cholecalciferol (vitamin D3) 4,000 unit PO DAILY 12/15/18 12/15/18 History [Vitamin D3] clopidogrel [Plavix] 75 mg PO DAILY 12/15/18 12/15/18 History furosemide [Lasix] 20 mg PO BID 12/15/18 12/15/18 History hydralazine 50 mg PO TID 12/15/18 12/15/18 History insulin glargine [Lantus Solostar 34 unit SUBCUT BID 12/15/18 12/15/18 History U-100 Insulin] spironolactone 12.5 mg PO DAILY 12/15/18 12/15/18 History terazosin 4 mg PO HS 12/15/18 12/15/18 History Allergies Allergy/AdvReac Type Severity Reaction Status Date / Time Iodinated Contrast- Oral and Allergy Unknown shaking, Verified 12/15/18 16:22 IV Dye severe anxiety Past Med/Surg History Medical History Diabetes (Chronic) HTN (hypertension) (Chronic) Chest pain Diabetic foot infection Sepsis Septicemia due to group B Streptococcus Toe ulcer AAA (abdominal aortic aneurysm) CKD (chronic kidney disease) Family History Other No significant family history Social History marital status: Single Current Living Situation: Alone current occupational status: disabled Feels Safe at Home: Yes Review of Systems See HPI for pertinent positives & negatives. and A total of 10 systems reviewed and were otherwise negative Physical Exam Vital Signs Vital Signs - 24 hr 12/15/18 14:09 12/15/18 14:21 12/15/18 14:30 Temperature 36.4 C L Temperature Source Oral Sepsis Recent Fever Within 48 Hours No Sepsis Action Taken by Nursing No Action Required Pulse Rate 63 Pulse Rate [Right Apical] Pulse Rhythm Regular Pulse Strength Normal Respiratory Rate 20 Respiratory Effort / Characteristics Non-Labored Respiratory Depth Normal Blood Pressure 147/75 H Blood Pressure [Right Arm] Blood Pressure Mean 99 Blood Pressure Mean [Right Arm] Blood Pressure Position Sitting Pulse Oximetry 98 98 Oxygen Delivery Method Room Air Room Air Room Air 12/15/18 14:48 12/15/18 16:36 Temperature Temperature Source Sepsis Recent Fever Within 48 Hours Sepsis Action Taken by Nursing Pulse Rate Pulse Rate [Right Apical] 59 L Pulse Rhythm Pulse Strength Respiratory Rate 17 Respiratory Effort / Characteristics Respiratory Depth Blood Pressure Blood Pressure [Right Arm] 146/80 H Blood Pressure Mean Blood Pressure Mean [Right Arm] 102 Blood Pressure Position Pulse Oximetry 97 Oxygen Delivery Method Room Air Room Air GENERAL: sitting up in bed, alert, well appearing, well nourished, no distress, non-toxic EYE EXAM: normal conjunctiva OROPHARYNX: no exudate, no erythema, lips, buccal mucosa, and tongue normal and mucous membranes are moist NECK: supple, no nuchal rigidity, no adenopathy, non-tender LUNGS: Clear to auscultation. Normal chest wall mechanics HEART: no murmurs, S1 normal and S2 normal ABDOMEN: abdomen soft, minimal tenderness in left lower quadrant, normo-active bowel sounds, no masses, no rebound or guarding. BACK: Back is symmetrical on inspection and there is no deformity, no midline tenderness, no CVA tenderness. Tenderness medial to the right schaphoid. SKIN: no rashes and no bruising UPPER EXTREMITIES: upper extremities are grossly normal. LOWER EXTREMITIES: No pitting edema. NEURO EXAM: Normal sensorium, cranial nerves II-XII grossly intact, normal speech, no gross weakness of arms, no gross weakness of legs. Course ED COURSE: Vital signs were reviewed and showed situational hypertension. The patients medical record was reviewed The above diagnostic studies were performed and reviewed. ED treatments and interventions as stated above. 1447: Dr. Ernst Luther, the resident, saw the patient at this time and performed his initial history, physical examination, and evaluation. 1549: The patient was evaluated in room B2. A complete history and physical examination was performed. 1622: Dr. Luther reevaluated the patient and updated him on his test results thus far. He is feeling nauseated at this time. 1632: Upon reevaluation, the patient is resting comfortably. Dr. Luther discussed my findings with the patient and he understands and agrees with the treatment plan. Based on the patients age, coexisting illnesses, exam and lab findings the decision to treat as an inpatient was made. The patient remained stable while under my care. The patient will be evaluated for further management. 1639: Dr. Luther, the resident, discussed the patient's case with [facility] She will evaluate the patient for further management. Consultations Consultation #1: Dr. Luther, the resident, discussed the patient's case with Hiwot Ortez PA-C -[facility] Hospitalist. She will evaluate the patient for further management. Time: 16:39 Administered Medications Discontinued Medications Sodium Chloride (Nss 1000ml) 1,000 mls @ 999 mls/hr IV .Q1H1M PAUL Stop: 12/15/18 17:30 Last Admin: 12/15/18 16:36 Dose: 999 mls/hr Documented by: [id number] Ondansetron HCl (Zofran) 4 mg IV NOW STA Stop: 12/15/18 16:23 Last Admin: 12/15/18 16:36 Dose: 4 mg Documented by: [id number] Medical Decision Making Differential Diagnosis Differential diagnoses includes but is not limited to acute coronary syndrome, myocardial infarction, pericarditis, pulmonary embolus, aortic dissection, pneumonia, pneumothorax, musculoskeletal, shingles, esophageal. Medical Records Attestation: I reviewed the patient's medical records. Home Medications Current Medication List: was personally reviewed by me Laboratory Data Attestation: I reviewed the patient's lab results. Result diagrams: 12/15/18 14:30 12/15/18 14:30 Lab Results 12/15/18 12/15/18 12/15/18 Range/Units 14:30 14:30 14:30 WBC 5.84 (4.8-10.8) K/uL RBC 4.08 L (4.7-6.1) M/uL Hgb 12.3 L (14.0-18.0) g/dL Hct 34.6 L (42-52) % MCV 84.8 (80-100) fL MCH 30.1 (25-34) pg MCHC 35.5 (32-36) g/dL RDW Std Deviation 41.3 (36.4-46.3) fL RDW Coeff of [place] 13.5 (11.5-14.5) % Plt Count 195 (130-400) K/uL MPV 9.3 (7.4-10.4) fL Immature Gran % (Auto) 0.2 % Neut % (Auto) 69.0 % Lymph % (Auto) 21.7 % [place] % (Auto) 7.9 % Eos % (Auto) 0.9 % Baso % (Auto) 0.3 % Immature Gran # (Auto) 0.01 (0.00-0.02) K/uL Neut # (Auto) 4.03 (1.4-6.5) K/uL Lymph # (Auto) 1.27 (1.2-3.4) K/uL [place] # (Auto) 0.46 (0.11-0.59) K/uL Eos # (Auto) 0.05 (0-0.5) K/uL Baso # (Auto) 0.02 (0-0.2) K/uL D-Dimer 230 (0-500) ug/L FEU Sodium 135 L (136-145) mmol/L Potassium 3.9 (3.5-5.1) mmol/L Chloride 104 (98-107) mmol/L Carbon Dioxide 24 (21-32) mmol/L Anion Gap 7.0 (3-11) BUN 37 H (7-18) mg/dl Creatinine 2.53 H (0.6-1.4) mg/dl Est Cr Clr Drug Dosing 36.4 ml/min Est GFR ( Amer) 30.5 Est GFR (Non-Af Amer) 26.3 BUN/Creatinine Ratio 14.8 (10-20) Glucose 246 H (70-99) mg/dl Calcium 8.9 (8.5-10.1) mg/dl Total Bilirubin 0.9 (0.2-1) mg/dl AST 19 (15-37) U/L ALT 37 (12-78) U/L Alkaline Phosphatase 119 H (45-117) U/L Troponin I < 0.015 (0-0.045) ng/ml Total Protein 8.0 (6.4-8.2) gm/dl Albumin 4.1 (3.4-5.0) gm/dl Globulin 3.9 (2.5-4.0) gm/dl Albumin/Globulin Ratio 1.1 (0.9-2) Lipase 1073 H (73-393) U/L Imaging Data Radiologist's Impression: Radiology results as stated below per my review and the radiologist's interpretation: XR chest 1V portable CLINICAL HISTORY: Chest Pain dyspnea COMPARISON STUDY: 08/15/2017 FINDINGS: The bones soft tissues and hemidiaphragms are normal. The cardi omediastinal silhouette is normal. The lungs are clear. The pulmonary vasculature is normal. IMPRESSION: Negative chest. The above report was generated using voice recognition software. It may contain grammatical, syntax or spelling errors. Electronically signed by: Chele Ojeda M.D. 12/15/2018 3:[address] OF THE ABDOMEN AND PELVIS WITHOUT CONTRAST CLINICAL HISTORY: Elevated lipase and R shoulder pain COMPARISON STUDY: CT of the abdomen and pelvis August 14, 2017. TECHNIQUE: Axial images of the abdomen and pelvis were obtained without IV contrast. Images were reviewed in the axial, sagittal, and coronal planes. Automated exposure control was utilized for the study. A dose lowering technique was utilized adhering to the principles of ALARA. FINDINGS: Numerous calcifications within each renal sinus likely reflect vascular calcifications. Sensitivity for detection of renal calculi is diminished. There are no ureteral calculi. There is no hydronephrosis or hydroureter. Water attenuation bilateral renal lesions are suboptimally assessed on this unenhanced exam but favor cysts. Unenhanced images of the liver, right adrenal gland and spleen are normal. Left adrenal hypodense nodules are benign. Appearance of the pancreas is unremarkable on this unenhanced exam. There is no peripancreatic infiltration or fluid. There is no biliary or pancreatic ductal dilatation. There is no peripancreatic or pericholecystic infiltration. There is extensive plaque of the abdominal aorta. There is no evidence for a bowel obstruction. The appendix is normal. There is no lymphadenopathy. No suspicious osseous lesions are noted. IMPRESSION: 1. Normal CT appearance of the pancreas. 2. No acute process within the abdomen or pelvis on unenhanced exam. Electronically signed by: Jamil Reyes M.D. 12/15/2018 4:26 PM ECG Data Attestation: I personally reviewed and interpreted this ECG as follows: Indication: chest pain Rate (beats per minute): 56 Rhythm: sinus bradycardia Findings: + other (poor baseline in inferior); no PVC Blood Pressure Blood Pressure Findings: Elevated blood pressure Blood Pressure Disposition: elevated BP felt to be situational MDM Narrative Patient is a 63-year-old male with a past medical history of aortic aneurysm on Plavix, diabetic hypertension and CKD that presents the ER for right-sided pleuritic chest pain. Pain is only present with breathing. He does admit to 3 episodes of vomiting. Labs were obtained and showed no significant leukocytosis or anemia. D-dimer was negative. BMP shows a creatinine of 2.53 up from 1.5. Lipase was elevated at 1100. He does have tenderness in the left mid/left lower abdomen on palpation. EKG with no acute changes. Chest x-ray unremarkable. D- dimer was negative and consequently PE was not explored any further. CT abdomen pelvis shows no acute pathology. No fluid in the chest to suggest aortic dissection/rupture. D-dimer was negative which also does not favor this. Did not CT the chest due to the creatinine at this time when risk and benefits are lead with a negative noncontrast of the bili and a negative d-dimer. Discussed this with the hospitalist. Patient was seen in conjunction but independently with the resident. Patient was given a bolus of IV fluids on the ER. He was also given IV Zofran Impression & Plan JEROME (acute kidney injury), Chest pain, Elevated lipase, Vomiting Discharge Plan Visit Data Chief Complaint: Chest Pain Stated Complaint: PAIN ON R SIDE, BACK, FRONT, SOB ED Provider: Bill Laura ED Midlevel Provider: Ernst Luther Discharge Problem: JEROME (acute kidney injury), Chest pain, Elevated lipase, Vomiting Patient Disposition: Being Evaluated by Hospitalist Forms Stand Alone Forms: Call Back Authorization, [facility] Prescriptions Prescriptions: No Action atorvastatin 40 mg Tablet 40 mg PO DAILY RF: 0 carvedilol [Coreg] 25 mg Tablet 37.5 mg PO BID RF: 0 clopidogrel [Plavix] 75 mg Tablet 75 mg PO DAILY RF: 0 aspirin [Aspir-81] 81 mg Tablet,Delayed Release (Dr/Ec) 81 mg PO DAILY RF: 0 amlodipine 10 mg Tablet 10 mg PO DAILY RF: 0 hydralazine 50 mg Tablet 50 mg PO TID RF: 0 furosemide [Lasix] 20 mg Tablet 20 mg PO BID RF: 0 Lantus Solostar U-100 Insulin 100 unit/mL (3 mL) Insulin Pen 34 unit SUBCUT BID RF: 0 Vitamin D3 4,000 unit Capsule 4,000 unit PO DAILY RF: 0 spironolactone 25 mg Tablet 12.5 mg PO DAILY RF: 0 terazosin 2 mg Capsule 4 mg PO HS RF: 0 Referrals Referrals: Chele Cullen MD [Primary Care Provider] - Discharge Problem: Chest pain Qualifiers: Chest pain type: unspecified Qualified Code(s): R07.9 - Chest pain, unspecified Vomiting Qualifiers: Vomiting type: unspecified Vomiting Intractability: unspecified Nausea presence: unspecified Qualified Code(s): R11.10 - Vomiting, unspecified The scribe's documentation has been prepared under my direction and personally reviewed by me in its entirety. I confirm that the note above accurately reflects all work, treatment, procedures, and medical decision making performed by me.
[2018-12-15] MEDS ORDERED: predniSONE 50 MG TAB PO ONE (18:20)
[2018-12-15 18:24] LABS: Appearance Urine Clear (Clear); Bilirubin Urine Negative (Negative); Blood Urine Negative (Negative); Color Urine Yellow; Glucose Urine UA 2+ (Negative); Ketones Urine Negative (Negative); Leukocyte Esterase Urine Negative (Negative); Nitrite Urine Negative (Negative); Protein Urine Negative (Negative); Specific Gravity Urine 1.015 (1.000-1.030); Urobilinogen Urine Negative (Negative); pH Urine 5.5 (4.5-7.5)
--- NOTE | 2018-12-15 18:39 | History & Physical Report ---
Date of Service December 15, 2018 Assessment & Plan (1) Chest pain: (2) Epigastric pain: (3) Elevated lipase: This is a 63-year-old male with a PMH of nonobstructive CAD, thoracic aortic aneurysm, HTN, DM II, CKD III, PAD with h/o multiple BLE stents (most recently with re-stenting to R popliteal artery in 2016) and other medical problems listed below who presents with worsening back and chest pain since yesterday. -Hemodynamically stable, no troponin elevation or EKG changes -H/o stable thoracic aortic aneurysm measuring 4.8 cm at aortic root and ascending aorta on 2D echo from October 2018 (stable with 2018 echo) -Due to presentation with back/chest discomfort with associated nausea and vomiting, felt it necessary to rule out dissection with chest CTA -Considered ACS but work up negative so far. Continue trending troponin, monitor on telemetry -Likely a component of acute pancreatitis with lipase is elevated at 1073 but only mild epigastric TTP, no evidence of pancreatitis on CT abd/pelvis -Will give IV fluids, keep on clear liquids and repeat CMP with lipase in AM (4) Thoracic aortic aneurysm: H/o stable thoracic aortic aneurysm measuring 4.8 cm at aortic root and ascending aorta on 2D echo from October 2018 (stable with 2018 echo) -Follows with JESSIE Alvarenga Q6 months (5) CKD (chronic kidney disease), stage III: Creatinine mildly elevated from baseline at 2.5 (baseline ~ 2.2) -Likely pre-renal in setting of vomiting episodes, decreased PO intake -Holding Lasix for now, IV fluids -Urine lytes ordered -Repeat BMP in AM (6) CAD (coronary artery disease): Nonobstructive CAD on 2014 diagnostic cardiac cath -Continue medical management with statin, aspirin, beta-lotus (7) PAD (peripheral artery disease): History of multiple vascular interventions at [facility] by Dr. Olsen from 2013- 2016, most recently with re-stenting of R popliteal A in January 2017 -Continue aspirin, plavix, statin (8) HTN (hypertension): Mild elevation in setting of pain, anxiety -Continue home amlodipine, Coreg, hydralazine (9) Diabetes mellitus, type II: A1c of 9.2 in Aug 2018 -Repeat A1c ordered -Basal bolus insulin per protocol while in-patient -Reduced from home insulin dose while on clears, adjust as needed -BSG AC HS (10) HLD (hyperlipidemia): Continue statin (11) BPH (benign prostatic hyperplasia): Continue terazosin DVT Ppx: SQ heparin Code status: FULL PCP: Alyse Dispo: Admitted to [facility] [place]. Plan to return home once medically stable. Patient seen in collaboration with Dr. Gaffney. Please see addendum. History of Present Illness Chief Complaint: back/chest pain Primary Care Provider: Chele Cullen MD This is a 63-year-old male with a PMH of nonobstructive CAD, thoracic aortic aneurysm, HTN, DM II, CKD III, PAD with h/o multiple BLE stents (most recently with re-stenting to R popliteal artery in 2017) and other medical problems listed below who presents with worsening back and chest pain since yesterday. Patient states that he has had pain in the right upper back, "inside shoulder blade" for the past week that is made worse with a deep breath. Starting yesterday evening, patient noted that right shoulder blade pain radiated to right side of chest and was associated with nausea, diaphoresis and one episode of vomiting. Episode lasted for approximately 45 minutes. Patient endorsed an additional episode similar in character and length occurring this morning, with another bout of emesis. Also experiencing tingling in R arm. Came in the ED for further evaluation. Follows with Chele Alvarenga of cardiology group for nonocclusive CAD as well as thoracic aortic aneurysm, most recently measuring at 4.2 cm on 2D echo in October 2018. Also follows with Dr. Olsen for peripheral vascular disease at [facility] and has required multiple stents in bilateral lower extremities since 2013. Currently, patient is not experiencing pain at rest. With inspiration, patient does have right scapular pain with radiation to right chest with associated nausea. Denies any lightheadedness,headache, palpitations or abdominal pain. Is hemodynamically stable. BP measured in right arm is 154/79 and in left arm is 156/78. Initial troponin is negative. D-dimer is negative. Lipase is 1073. Allergies Allergy/AdvReac Type Severity Reaction Status Date / Time Iodinated Contrast- Oral and Allergy Unknown shaking, Verified 12/15/18 16:22 IV Dye severe anxiety Home Medications Home Medications Medication Instructions Recorded Confirmed Type amlodipine 10 mg PO DAILY 12/15/18 12/15/18 History aspirin [Aspir-81] 81 mg PO DAILY 12/15/18 12/15/18 History atorvastatin 40 mg PO DAILY 12/15/18 12/15/18 History carvedilol [Coreg] 37.5 mg PO BID 12/15/18 12/15/18 History cholecalciferol (vitamin D3) 4,000 unit PO DAILY 12/15/18 12/15/18 History [Vitamin D3] clopidogrel [Plavix] 75 mg PO DAILY 12/15/18 12/15/18 History furosemide [Lasix] 40 mg PO BID 12/15/18 12/15/18 History hydralazine 1.5 tabs PO TID 12/15/18 12/15/18 History insulin glargine [Lantus Solostar 34 unit SUBCUT BID 12/15/18 12/15/18 History U-100 Insulin] spironolactone 12.5 mg PO DAILY 12/15/18 12/15/18 History terazosin 4 mg PO HS 12/15/18 12/15/18 History Past Med/Surg History Medical History HLD (hyperlipidemia) (Chronic) CAD (coronary artery disease) (Chronic) BPH (benign prostatic hyperplasia) (Chronic) CKD (chronic kidney disease), stage III (Chronic) Thoracic aortic aneurysm (Chronic) Aortic root and ascending aorta mildly enlarged, per October 2018 GENNA, measuring at 4.2 cm (no significant change from 2018) PAD (peripheral artery disease) (Chronic) History of multiple stenting procedures to lower extremities, most recently restenting and angioplasty of right popliteal artery in January 2017 at [facility] Diabetes mellitus, type II (Chronic) HTN (hypertension) (Chronic) Social History Preferred Language: Georgian Communication Ability: Effective Paint Tinter Required: No Beliefs That Will Affect Care: None marital status: Single Current Living Situation: Significant Other current occupational status: disabled Other Information That Helps Us Care for You: No Feels Safe at Home: Yes Safety Concerns: Feels Safe At This Time Smoking Status: Former smoker Do You Dip or Chew Tobacco: No Second Hand Exposure: No Hx Alcohol Use: No Hx Substance Use: No Review of Systems Review of Systems: At least ten systems reviewed and negative except as noted in the HPI. Physical Exam Physical Exam: General Appearance: WD/WN, no apparent distress, resting c omfortably Head: normocephalic, atraumatic Eyes: normal inspection, PERRL, EOMI ENT: hearing grossly normal, pharynx normal (moist mucous membranes) Neck: supple, no JVD, no adenopathy Respiratory/Chest: lungs clear to auscultation. No wheezes, rales or rhonci. No respiratory distress or accessory muscle use Cardiovascular: regular rate, rhythm, no murmur, normal peripheral pulses Abdomen/GI: normal bowel sounds, soft, TTP in LLQ, some with deep palpation of epigastrium Back: TTP along R paraspinous muscles of thoracic spine, no deformities noted Extremities/Musculoskelatal: normal inspection, no calf tenderness, normal capillary refill, no pedal edema Neurologic/Psych: alert, normal mood/affect, oriented x 3, + anxious Skin: normal color, warm/dry Results & Data Vital Signs (Past 12 Hours) Vital Signs Temp Pulse Pulse Resp BP BP Pulse Ox 12/15/18 18:15 57 L 16 146/73 H 97 12/15/18 18:00 172/76 H 96 12/15/18 17:48 156/78 H 97 12/15/18 17:46 154/79 H 97 12/15/18 17:31 160/73 H 98 12/15/18 17:30 97 12/15/18 17:00 163/78 H 98 12/15/18 16:36 59 L 17 146/80 H 97 12/15/18 16:35 146/80 H 98 12/15/18 15:00 60 12/15/18 14:30 61 21 12/15/18 14:23 58 L 13 12/15/18 14:21 98 12/15/18 14:09 36.4 C L 63 20 147/75 H 98 Laboratory Results Short CBC 12/15/18 Range/Units 14:30 WBC 5.84 (4.8-10.8) K/uL Hgb 12.3 L (14.0-18.0) g/dL Hct 34.6 L (42-52) % Plt Count 195 (130-400) K/uL BMP 12/15/18 14:30 Sodium 135 L Potassium 3.9 Chloride 104 Carbon Dioxide 24 BUN 37 H Creatinine 2.53 H Glucose 246 H Calcium 8.9 Cardiac Enzymes 12/15/18 12/15/18 Range/Units 14:30 20:59 Troponin I < 0.015 < 0.015 (0-0.045) ng/ml Liver Function 12/15/18 Range/Units 14:30 Total Bilirubin 0.9 (0.2-1) mg/dl AST 19 (15-37) U/L ALT 37 (12-78) U/L Alkaline Phosphatase 119 H (45-117) U/L Albumin 4.1 (3.4-5.0) gm/dl Urine 12/15/18 Range/Units 18:11 Urine Color Yellow Urine Appearance Clear (Clear) Urine pH 5.5 (4.5-7.5) Ur Specific [place] 1.015 (1.000-1.030) Urine Protein Negative (Negative) Urine Glucose (UA) 2+ H (Negative) Diagnostic Findings CXR: IMPRESSION: Negative chest. Chest CTA: pending CT abd/pelvis: IMPRESSION: 1. Normal CT appearance of the pancreas. 2. No acute process within the abdomen or pelvis on unenhanced exam. ECG Rhythm: sinus bradycardia Supervising Physician Co-Signing Physician Notes I have seen and examined the patient and have discussed the case with the provider above. I agree with the assessment and plan as stated with the following exceptions. Mr. Kunz is reporting R scapular pain for the last week that is constant, sharp and deep. Today while working at his [employer], he felt the back pain move into his R chest area. The chest pain comes and goes, worse with more intense pain in his back. He has some associated nausea and vomiting yesterday and today. Clinical picture is most consistent with an acute pancreatitis, although with his presentation and h/o vascular disease, aortic dissection needs to be ruled out. Additionally, with the elevated lipase and abdominal TTP present on exam, will obtain a lactate to rule out bowel ischemia. On exam he is mentating well and is in no acute distress. S1/2 heard with no extra heart sounds on aucultation and no murmurs, gallops or rubs. PMI is not displaced. Symmetric and regular 2+ radial pulses bilaterally. Lungs are clear to auscultation. There is no TTP around the paraspinal musculature or scapulae. Abdominal exam reveals LLQ and epigastric tenderness that is more subtle. Abdomen is soft and not distended. No edema. The patient reporting some hunger at this time so will allow a clear diet, cont with IVF and repeat labwork in am. Aortogram and lactate pending and overnight hospitalist will follow result. Recommend if he has a dissection to hold on Lovenox for DVT prophylaxis, which was ordered for the am. Gulshan, DO Active issues: acute pancreatitis, thoracic aoritc aneurysm-rule out dissection, CKD III, PAD, CAD.
[2018-12-15] MEDS ORDERED: OPTIRAY 320 125ml IV PRN (20:03)
[2018-12-15] MEDS ORDERED: TERAZOSIN HCL 1 MG CAP PO SCH (21:00)
[2018-12-15] MEDS ORDERED: DEXTROSE 50% 50 ML SYRINGE IV PRN (21:01)
[2018-12-15] MEDS ORDERED: GLUCOSE 40% GEL 15 GM TUBE PO PRN (21:01)
[2018-12-15] MEDS ORDERED: GLUCOSE 10 TABS/TUBE PO PRN (21:01)
[2018-12-15] MEDS ORDERED: GLUCAGON FOR INJ 1 MG VIAL SQ PRN (21:01)
[2018-12-15] MEDS ORDERED: CARBOHYDRATES FOR HYPOGLYCEMIA PO PRN (21:01)
[2018-12-15] MEDS ORDERED: INSULIN GLARGINE SOLOSTAR 100 UNITS/ML 3 ML PEN SC SCH (21:15)
[2018-12-15] MEDS: INSULIN ASPART 100 UNITS/ML 3 ML PEN SC SCH (21:34)
[2018-12-15] MEDS: CARVEDILOL 25 MG TAB PO SCH (21:39)
[2018-12-15] MEDS: LACTATED RINGER'S 1,000 ML IV SCH (22:29)
[2018-12-15] MEDS: INSULIN GLARGINE SOLOSTAR 100 UNITS/ML 3 ML PEN SC SCH (23:08)
--- NOTE | 2018-12-15 23:08 | CT Scan Report ---
CT ANGIOGRAM OF THE CHEST COMBO CLINICAL HISTORY: Atypical chest pain. COMPARISON STUDY: Chest x-ray dated 12/15/2018. Chest CT scans dated 08/16/2017 and 08/14/2017. TECHNIQUE: Before and following the IV administration of 100 cc of Optiray 320, CT angiogram of the c hest was performed from the thoracic inlet to the upper abdomen utilizing the dissection protocol. Im ages are reviewed in the axial, sagittal, and coronal planes. 3-D MIPS images are created and assesse d. IV contrast was administered without complication. A dose lowering technique was utilized adherin g to the principles of ALARA. CT DOSE: 1202.01 mGy.cm FINDINGS: Thyroid: Imaged portions of the thyroid gland are normal in size and attenuation. There are numerous subcentimeter low-attenuation thyroid nodules. Thoracic aorta: No intramural hematoma is seen on the unenhanced series. There is atherosclerotic sona cification of the thoracic aorta. There is mild aneurysmal dilatation of the ascending thoracic aorta which measures up to 4.1 cm. The remainder of the thoracic aorta is normal in caliber. The arch demo nstrates standard 3-vessel anatomy. The arch vessels are widely patent. No dissection is seen. Pulmonary vasculature: The pulmonary trunk is normal in caliber. There are filling defects identified within the main, lobar, or segmental pulmonary branches to indicate pulmonary embolus. Heart: The heart is top normal in size and without pericardial effusion. The coronary arteries are de nsely calcified. Lungs and pleural spaces: There is no airspace consolidation or pleural effusion. There are foci of b ibasilar scarring/atelectasis the trachea and central airways are clear. Mediastinum: There is no mediastinal lymphadenopathy. Susan: Clear. Axillae: There is no axillary lymphadenopathy. Upper abdomen: Left adrenal adenomas are unchanged. There is mild nodular thickening of the right adr enal gland. A tiny hiatal hernia is noted. Skeletal structures: Mild degenerative change is noted throughout the thoracic spine. No lytic or richard stic bony lesions are seen. IMPRESSION: 1. There is mild aneurysmal dilatation of the ascending thoracic aorta which measures up to 4.1 cm. T he remainder of the thoracic aorta is normal in caliber and no dissection is seen. 2. There is no evidence of pulmonary embolus in the main, lobar, or segmental pulmonary arteries. 3. There is no airspace consolidation or pleural effusion. 4. The coronary arteries are densely calcified. 5. Additional findings as above. Electronically signed by: Jassi Phan M.D. 12/15/2018 11:07 PM
[2018-12-15 23:26] LABS: INR 1.1 (0.9-1.1); Prothrombin Time 10.9 Seconds (9.0-12.0)
[2018-12-16 02:22] LABS: Hematocrit (blood only) 33.3 % (42-52); Hemoglobin 11.8 g/dL (14.0-18.0); Mean Corpuscular Hgb Conc 35.4 g/dL (32-36); Mean Corpuscular Volume 85.4 fL (80-100); Mean Platelet Volume 9.1 fL (7.4-10.4); Platelet Count 181 K/uL (130-400); RDW Coefficient of Variation 13.5 % (11.5-14.5); RDW Standard Deviation 41.8 fL (36.4-46.3); White Blood Count 7.08 K/uL (4.8-10.8)
[2018-12-16 02:41] LABS: Alanine Aminotransferase 34 U/L (12-78); Albumin Level 3.6 gm/dl (3.4-5.0); Aspartate Aminotransferase 19 U/L (15-37); BUN Creatinine Ratio 14.5 (10-20); Blood Urea Nitrogen 31 mg/dl (7-18); Calcium 8.8 mg/dl (8.5-10.1); Carbon Dioxide 25 mmol/L (21-32); Chloride 109 mmol/L (98-107); Creatinine Clr Calc Pharmacy 43.4 ml/min; Est GFR (African American) 37.8; Est GFR (Non-African American) 32.6; Glucose 176 mg/dl (70-99); Potassium 4.3 mmol/L (3.5-5.1); Sodium 138 mmol/L (136-145)
[2018-12-16 02:46] LABS: Albumin Globulin Ratio 1.1 (0.9-2); Alkaline Phosphatase 112 U/L (45-117); Bilirubin,Total 0.8 mg/dl (0.2-1); Globulin 3.4 gm/dl (2.5-4.0); Troponin I < 0.015 ng/ml (0-0.045)
[2018-12-16] MEDS: LACTATED RINGER'S 1,000 ML IV SCH ×2 (05:59→14:40)
[2018-12-16 06:30] LABS: Estimated Average Glucose 189 mg/dl; Hemoglobin A1C 8.2 % (4.5-5.6)
[2018-12-16 07:23] VITALS: TEMP 98.1; O2SAT 98
[2018-12-16] MEDS: HEPARIN SOD 5,000 UNIT/0.5 ML VIAL SQ SCH ×2 (08:43→14:40)
[2018-12-16] MEDS: INSULIN ASPART 100 UNITS/ML 3 ML PEN SC SCH ×2 (08:44→12:41)
[2018-12-16] MEDS: INSULIN GLARGINE SOLOSTAR 100 UNITS/ML 3 ML PEN SC SCH (08:45)
[2018-12-16] MEDS: CARVEDILOL 25 MG TAB PO SCH (08:48)
[2018-12-16] MEDS ORDERED: AMLODIPINE BESYLATE 5 MG TAB PO SCH (09:00)
[2018-12-16] MEDS ORDERED: ASPIRIN 81 MG ECTAB PO SCH (09:00)
[2018-12-16] MEDS ORDERED: ATORVASTATIN 40 MG TAB PO SCH (09:00)
[2018-12-16] MEDS ORDERED: CLOPIDOGREL BISULFATE 75 MG TAB PO SCH (09:00)
[2018-12-16] MEDS ORDERED: SPIRONOLACTONE 25 MG TAB PO SCH (09:00)
[2018-12-16] MEDS ORDERED: CHOLECALCIFEROL 1,000 UNITS TAB PO SCH (09:00)
--- NOTE | 2018-12-16 09:50 | Hospitalist Progress Note ---
Date of Service December 16, 2018 Assessment & Plan (1) Chest pain: (2) Epigastric pain: This is a 63-year-old male with a PMH of nonobstructive CAD, thoracic aortic aneurysm, HTN, DM II, CKD III, PAD with h/o multiple BLE stents (most recently with re-stenting to R popliteal artery in 2017) and other medical problems listed below who presents with worsening back and chest pain since yesterday. Patient states that he has had pain in the right upper back, "inside shoulder blade" for the past week that is made worse with a deep breath. Starting yesterday evening, patient noted that right shoulder blade pain radiated to right side of chest and was associated with nausea, diaphoresis and one episode of vomiting. Episode lasted for approximately 45 minutes. Patient endorsed an additional episode similar in character and length occurring this morning, with another bout of emesis. Also experiencing tingling in R arm. Came in the ED for further evaluation. Follows with Chele Alvarenga of cardiology group for nonocclusive CAD as well as thoracic aortic aneurysm, most recently measuring at 4.2 cm on 2D echo in October 2018. Also follows with Dr. Olsen for peripheral vascular disease at [facility] [place] [facility] and has required multiple stents in bilateral lower extremities since 2013. Currently, patient is not experiencing pain at rest. With inspiration, patient does have right scapular pain with radiation to right chest with associated nausea. Denies any lightheadedness,headache, palpitations or abdominal pain. Is hemodynamically stable. BP measured in right arm is 154/79 and in left arm is 156/78. Initial troponin is negative. D-dimer is negative. Lipase is 1073. (3) Elevated lipase: This is a 63-year-old male with a PMH of nonobstructive CAD, thoracic aortic aneurysm, HTN, DM II, CKD III, PAD with h/o multiple BLE stents (most recently with re-stenting to R popliteal artery in 2017) and other medical problems listed below who presents with worsening back and chest pain since yesterday. -Hemodynamically stable, no troponin elevation or EKG changes -H/o stable thoracic aortic aneurysm measuring 4.8 cm at aortic root and ascending aorta on 2D echo from October 2018 (stable with 2018 echo) -- POSSIBLE ACUTE PANCREATITIS from passed cholelithiasis? GB sludge? symptoms resolved lipase normalized LFTs normal CT abdomen/pelv: unrevealing - continue IV fluids - GI consulted - advance diet -- ACS ruled out troponins negative EKG no ischemia -- Thoracic Aortic Aneurysm no dissection no PE (4) Thoracic aortic aneurysm: H/o stable thoracic aortic aneurysm measuring 4.8 cm at aortic root and ascending aorta on 2D echo from October 2018 (stable with 2018 echo) -Follows with JESSIE Alvarenga Q6 months (5) CKD (chronic kidney disease), stage III: Creatinine mildly elevated from baseline at 2.5 (baseline ~ 2.2) -Likely pre-renal in setting of vomiting episodes, decreased PO intake -Holding Lasix for now, IV fluids -- stable (6) CAD (coronary artery disease): Nonobstructive CAD on 2014 diagnostic cardiac cath -Continue medical management with statin, aspirin, beta-lotus (7) PAD (peripheral artery disease): History of multiple vascular interventions at [facility] by Dr. Olsen from 2013- 2016, most recently with re-stenting of R popliteal A in January 2017 -Continue aspirin, plavix, statin (8) HTN (hypertension): Mild elevation in setting of pain, anxiety -Continue home amlodipine, Coreg, hydralazine (9) Diabetes mellitus, type II: A1c of 9.2 in Aug 2018 -Repeat A1c ordered : 8.2 -Basal bolus insulin per protocol while in-patient -Reduced from home insulin dose while on clears, adjust as needed -BSG AC HS -- outpatient ff up (10) HLD (hyperlipidemia): Continue statin (11) BPH (benign prostatic hyperplasia): Continue terazosin DVT Ppx: SQ heparin Code status: FULL PCP: Alyse Dispo: Admitted to [facility]. Plan to return home once medically stable. Patient seen in collaboration with Dr. Gaffney. Please see addendum. Subjective ff up for right shoulder blade/chest pain, pancreatitis seen resting in bed, comfortable, in good spirits states he feels much better overall right shoulder blade radiating to right chest/flank resolved no nausea/vomiting, dyspnea, palpitations, dizziness no other symptoms Review of Systems Review of Systems: All systems reviewed & are unremarkable except as noted in HPI & below Physical Exam Physical Exam: General- oriented x 3, not in distress, speaks in sentences with no effort or accessory muscle use Head- atraumatic Eyes- PERRL, EOMI, anicteric ENT- oropharynx clear Neck- supple, no JVD, no adenopathy, no thyromegaly; carotids +2/2, no bruits appreciated Lungs- clear to auscultation bilaterally, no rales/wheezes Heart- normal rate, regular rhythm; no murmur, no gallop, no rub appreciated Abdomen- normal bowel sounds, nondistended, soft, nontender, no masses or hepatosplenomegaly Extremities- no pretibial edema, no calf tenderness; peripheral pulses intact Neuro- alert, oriented x 3; CN 2-12 grossly intact; motor 5/5 bilaterally;sensation 100% on all extremities; no other gross focal neurologic deficits Skin- warm & dry Results & Data Vital Signs (Past 12 Hours) Vital Signs Temp Pulse Resp BP Pulse Ox 12/16/18 07:22 36.7 C 78 16 142/73 H 98 12/16/18 00:59 131/64 12/15/18 23:03 36.8 C 61 20 155/81 H 94 Laboratory Results Laboratory Results - last 24 hr 12/15/18 12/15/18 12/15/18 14:30 14:30 14:30 WBC 5.84 RBC 4.08 L Hgb 12.3 L Hct 34.6 L MCV 84.8 MCH 30.1 MCHC 35.5 RDW Std Deviation 41.3 RDW Coeff of [place] 13.5 Plt Count 195 MPV 9.3 Immature Gran % (Auto) 0.2 Neut % (Auto) 69.0 Lymph % (Auto) 21.7 [place] % (Auto) 7.9 Eos % (Auto) 0.9 Baso % (Auto) 0.3 Immature Gran # (Auto) 0.01 Neut # (Auto) 4.03 Lymph # (Auto) 1.27 [place] # (Auto) 0.46 Eos # (Auto) 0.05 Baso # (Auto) 0.02 PT INR D-Dimer 230 Sodium 135 L Potassium 3.9 Chloride 104 Carbon Dioxide 24 Anion Gap 7.0 BUN 37 H Creatinine 2.53 H Est Cr Clr Drug Dosing 36.4 Est GFR ( Amer) 30.5 Est GFR (Non-Af Amer) 26.3 BUN/Creatinine Ratio 14.8 Glucose 246 H POC Glucose Estimat Average Glucose Hemoglobin A1c Lactate Calcium 8.9 Total Bilirubin 0.9 AST 19 ALT 37 Alkaline Phosphatase 119 H Troponin I < 0.015 Total Protein 8.0 Albumin 4.1 Globulin 3.9 Albumin/Globulin Ratio 1.1 Lipase 1073 H Urine Color Urine Appearance Urine pH Ur Specific [place] Urine Protein Urine Glucose (UA) Urine Ketones Urine Blood Urine Nitrite Urine Bilirubin Urine Urobilinogen Ur Leukocyte Esterase 12/15/18 12/15/18 12/15/18 14:30 18:11 20:59 WBC RBC Hgb Hct MCV MCH MCHC RDW Std Deviation RDW Coeff of [place] Plt Count MPV Immature Gran % (Auto) Neut % (Auto) Lymph % (Auto) [place] % (Auto) Eos % (Auto) Baso % (Auto) Immature Gran # (Auto) Neut # (Auto) Lymph # (Auto) [place] # (Auto) Eos # (Auto) Baso # (Auto) PT 10.9 INR 1.1 D-Dimer Sodium Potassium Chloride Carbon Dioxide Anion Gap BUN Creatinine Est Cr Clr Drug Dosing Est GFR ( Amer) Est GFR (Non-Af Amer) BUN/Creatinine Ratio Glucose POC Glucose Estimat Average Glucose Hemoglobin A1c Lactate Calcium Total Bilirubin AST ALT Alkaline Phosphatase Troponin I < 0.015 Total Protein Albumin Globulin Albumin/Globulin Ratio Lipase Urine Color Yellow Urine Appearance Clear Urine pH 5.5 Ur Specific [place] 1.015 Urine Protein Negative Urine Glucose (UA) 2+ H Urine Ketones Negative Urine Blood Negative Urine Nitrite Negative Urine Bilirubin Negative Urine Urobilinogen Negative Ur Leukocyte Esterase Negative 12/15/18 12/15/18 12/16/18 21:07 22:52 02:13 WBC RBC Hgb Hct MCV MCH MCHC RDW Std Deviation RDW Coeff of [place] Plt Count MPV Immature Gran % (Auto) Neut % (Auto) Lymph % (Auto) [place] % (Auto) Eos % (Auto) Baso % (Auto) Immature Gran # (Auto) Neut # (Auto) Lymph # (Auto) [place] # (Auto) Eos # (Auto) Baso # (Auto) PT INR D-Dimer Sodium 138 Potassium 4.3 Chloride 109 H Carbon Dioxide 25 Anion Gap 4.0 BUN 31 H Creatinine 2.12 H D Est Cr Clr Drug Dosing 43.4 Est GFR ( Amer) 37.8 Est GFR (Non-Af Amer) 32.6 BUN/Creatinine Ratio 14.5 Glucose 176 H POC Glucose 175 H Estimat Average Glucose Hemoglobin A1c Lactate 1.3 Calcium 8.8 Total Bilirubin 0.8 AST 19 ALT 34 Alkaline Phosphatase 112 Troponin I < 0.015 Total Protein 7.0 Albumin 3.6 Globulin 3.4 Albumin/Globulin Ratio 1.1 Lipase 332 Urine Color Urine Appearance Urine pH Ur Specific [place] Urine Protein Urine Glucose (UA) Urine Ketones Urine Blood Urine Nitrite Urine Bilirubin Urine Urobilinogen Ur Leukocyte Esterase 12/16/18 12/16/18 12/16/18 02:13 02:13 08:06 WBC 7.08 RBC 3.90 L Hgb 11.8 L Hct 33.3 L MCV 85.4 MCH 30.3 MCHC 35.4 RDW Std Deviation 41.8 RDW Coeff of [place] 13.5 Plt Count 181 MPV 9.1 Immature Gran % (Auto) Neut % (Auto) Lymph % (Auto) [place] % (Auto) Eos % (Auto) Baso % (Auto) Immature Gran # (Auto) Neut # (Auto) Lymph # (Auto) [place] # (Auto) Eos # (Auto) Baso # (Auto) PT INR D-Dimer Sodium Potassium Chloride Carbon Dioxide Anion Gap BUN Creatinine Est Cr Clr Drug Dosing Est GFR ( Amer) Est GFR (Non-Af Amer) BUN/Creatinine Ratio Glucose POC Glucose 150 H Estimat Average Glucose 189 Hemoglobin A1c 8.2 H Lactate Calcium Total Bilirubin AST ALT Alkaline Phosphatase Troponin I Total Protein Albumin Globulin Albumin/Globulin Ratio Lipase Urine Color Urine Appearance Urine pH Ur Specific [place] Urine Protein Urine Glucose (UA) Urine Ketones Urine Blood Urine Nitrite Urine Bilirubin Urine Urobilinogen Ur Leukocyte Esterase
--- NOTE | 2018-12-16 11:58 | Gastrointestinal Consultation ---
Date of Consultation December 16, 2018 Assessment & Plan (1) Elevated lipase: Pt is a 63 y/o male presented last night w mid back between shoulder blades pain radiating to RUQ abd area associated w R arm tingling, nausea w/o vomiting. Cardiac workup negative. No signs of PE, thoracic aortic aneurysm dissection. Today he reports may probably had muscle straining from lifting things which could have caused his back pain. His LFTs were normal but Lipase was elevated last night, normal today. He was suspected to have pancreatitis but CT w/o evidence of pancreas inflammation or biliary/pancreas duct dilations. Denies new meds, ETOH, tobacco. Less likely had pancreatitis. - Advance diet as tolerated - LR IVF decreased to 100ml/hr; may DC if tolerating PO intake well - No contraindication for DC home from GI standpoint today; pls recall us if needed. Supervising Physician Co-Signing Physician Notes I have personally seen and examined the patient with HUGH Obregon. Her note reflects my exam and findings. I agree with her impression and plan. Currently completely asymptomatic. May have passed a small gall stone. I recommend an out patient MRCP. Anoop Abernathy M.D. History of Present Illness Reason for Consultation: Pancreatitis Requesting Physician: Dr. Saturnino Delgado Attending Physician: Dr. Anoop Abernathy History of Present Illness Pt is a 63 y/o male w PMHx of non obstructive CAD, thoracic aortic aneurysm, HTN, DM II, CDK III, PAD, bilateral LE stents, BPH, who presented last night to ED w c/o mid back between shoulder blades pain which wrapped around to abd area associated w mild nausea w/o vomiting. He denies any bowel habit changes. He does note also some tingling on R arm. No CP, SOB. Cardiac enzymes negative, though some Twave abnormality on anterior EKG leads. Noted on labs mild anemia, elevated BUN/Cr similar to his baseline. LFTs are normal but Lipase was elevated in 1000s yesterday. Noted normal Lipase today. He underwent several imaging stud ies including CXR, CT abd/pelvis w/o contrast, CT chest - no signs of thoracic aorta dissection, PE, or pancreatic inflammation. No biliary or pancreatic duct dilation, or acute inflammation/obstruction of bowels. Pt today said he feels "fantastic". He still has mild mid back pain. 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 He denies any more abd pain, no n/v. He is tolerating CL diet well, hungry, wants solid foods. He denies any new med changes. However admits he's been cutting down on his insulin as he is in "[facility]" for insurance. He denies tobacco, ETOH, illicit drugs uses. Denies family hx of autoimmune diseases or pancreatitis. Allergies Allergy/AdvReac Type Severity Reaction Status Date / Time Iodinated Contrast- Oral and Allergy Unknown shaking, Verified 12/15/18 16:22 IV Dye severe anxiety Home Medications Home Medications Medication Instructions Recorded Confirmed Type amlodipine 10 mg PO DAILY 12/15/18 12/15/18 History aspirin [Aspir-81] 81 mg PO DAILY 12/15/18 12/15/18 History atorvastatin 40 mg PO DAILY 12/15/18 12/15/18 History carvedilol [Coreg] 37.5 mg PO BID 12/15/18 12/15/18 History cholecalciferol (vitamin D3) 4,000 unit PO DAILY 12/15/18 12/15/18 History [Vitamin D3] clopidogrel [Plavix] 75 mg PO DAILY 12/15/18 12/15/18 History furosemide [Lasix] 40 mg PO BID 12/15/18 12/15/18 History hydralazine 1.5 tabs PO TID 12/15/18 12/15/18 History insulin glargine [Lantus Solostar 34 unit SUBCUT BID 12/15/18 12/15/18 History U-100 Insulin] spironolactone 12.5 mg PO DAILY 12/15/18 12/15/18 History terazosin 4 mg PO HS 12/15/18 12/15/18 History Patient History Medical History HLD (hyperlipidemia) (Chronic) CAD (coronary artery disease) (Chronic) BPH (benign prostatic hyperplasia) (Chronic) CKD (chronic kidney disease), stage III (Chronic) Thoracic aortic aneurysm (Chronic) Aortic root and ascending aorta mildly enlarged, per October 2018 GENNA, measuring at 4.2 cm (no significant change from 2018) PAD (peripheral artery disease) (Chronic) History of multiple stenting procedures to lower extremities, most recently restenting and angioplasty of right popliteal artery in January 2017 at [facility] [place] Diabetes mellitus, type II (Chronic) HTN (hypertension) (Chronic) Family History Other Heart disease Social History Preferred Language: Martiniquais Communication Ability: Effective 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 Beliefs That Will Affect Care: None marital status: Single Current Living Situation: Significant Other current occupational status: disabled Other Information That Helps Us Care for You: No Feels Safe at Home: Yes Safety Concerns: Feels Safe At This Time Smoking Status: Former smoker Do You Dip or Chew Tobacco: No Second Hand Exposure: No Hx Alcohol Use: No Hx Substance Use: No Review of Systems Review of Systems: All systems reviewed & are unremarkable except as noted in HPI & below Physical Exam Constitutional: WD/WN, vitals as above well groomed, cooperative and comfortable Eyes: PERRL, conjunctivae normal, anicteric sclerae ENMT: external ear and nose normal, oropharynx normal Respiratory: normal respiratory effort, lungs clear to auscultation Cardiovascular: RRR, no murmur, no edema Gastrointestinal (Abdomen): normal bowel sounds, soft, nontender, no hepatosplenomegaly Skin: no rashes, warm and dry no jaundice Neurologic: Motor/Sensory: no asterixis Psychiatric: A+Ox3, euthymic affect Lymphatic: no lymphedema Results & Data Vital Signs (Past 12 Hours) Vital Signs Laboratory Results - last 72 hr 12/15/18 12/15/18 12/15/18 14:30 14:30 14:30 WBC 5.84 RBC 4.08 L Hgb 12.3 L Hct 34.6 L MCV 84.8 MCH 30.1 MCHC 35.5 RDW Std Deviation 41.3 RDW Coeff of [place] 13.5 Plt Count 195 MPV 9.3 Immature Gran % (Auto) 0.2 Neut % (Auto) 69.0 Lymph % (Auto) 21.7 Jack % (Auto) 7.9 Eos % (Auto) 0.9 Baso % (Auto) 0.3 Immature Gran # (Auto) 0.01 Neut # (Auto) 4.03 Lymph # (Auto) 1.27 Jack # (Auto) 0.46 Eos # (Auto) 0.05 Baso # (Auto) 0.02 PT INR D-Dimer 230 Sodium 135 L Potassium 3.9 Chloride 104 Carbon Dioxide 24 Anion Gap 7.0 BUN 37 H Creatinine 2.53 H Est Cr Clr Drug Dosing 36.4 Est GFR ( Amer) 30.5 Est GFR (Non-Af Amer) 26.3 BUN/Creatinine Ratio 14.8 Glucose 246 H POC Glucose Estimat Average Glucose Hemoglobin A1c Lactate Calcium 8.9 Total Bilirubin 0.9 AST 19 ALT 37 Alkaline Phosphatase 119 H Troponin I < 0.015 Total Protein 8.0 Albumin 4.1 Globulin 3.9 Albumin/Globulin Ratio 1.1 Lipase 1073 H Urine Color Urine Appearance Urine pH Ur Specific [place] Urine Protein Urine Glucose (UA) Urine Ketones Urine Blood Urine Nitrite Urine Bilirubin Urine Urobilinogen Ur Leukocyte Esterase 12/15/18 12/15/18 12/15/18 14:30 18:11 20:59 WBC RBC Hgb Hct MCV MCH MCHC RDW Std Deviation RDW Coeff of [place] Plt Count MPV Immature Gran % (Auto) Neut % (Auto) Lymph % (Auto) Jack % (Auto) Eos % (Auto) Baso % (Auto) Immature Gran # (Auto) Neut # (Auto) Lymph # (Auto) Jack # (Auto) Eos # (Auto) Baso # (Auto) PT 10.9 INR 1.1 D-Dimer Sodium Potassium Chloride Carbon Dioxide Anion Gap BUN Creatinine Est Cr Clr Drug Dosing Est GFR ( Amer) Est GFR (Non-Af Amer) BUN/Creatinine Ratio Glucose POC Glucose Estimat Average Glucose Hemoglobin A1c Lactate Calcium Total Bilirubin AST ALT Alkaline Phosphatase Troponin I < 0.015 Total Protein Albumin Globulin Albumin/Globulin Ratio Lipase Urine Color Yellow Urine Appearance Clear Urine pH 5.5 Ur Specific [place] 1.015 Urine Protein Negative Urine Glucose (UA) 2+ H Urine Ketones Negative Urine Blood Negative Urine Nitrite Negative Urine Bilirubin Negative Urine Urobilinogen Negative Ur Leukocyte Esterase Negative 12/15/18 12/15/18 12/16/18 21:07 22:52 02:13 WBC RBC Hgb Hct MCV MCH MCHC RDW Std Deviation RDW Coeff of [place] Plt Count MPV Immature Gran % (Auto) Neut % (Auto) Lymph % (Auto) Jack % (Auto) Eos % (Auto) Baso % (Auto) Immature Gran # (Auto) Neut # (Auto) Lymph # (Auto) Jack # (Auto) Eos # (Auto) Baso # (Auto) PT INR D-Dimer Sodium 138 Potassium 4.3 Chloride 109 H Carbon Dioxide 25 Anion Gap 4.0 BUN 31 H Creatinine 2.12 H D Est Cr Clr Drug Dosing 43.4 Est GFR ( Amer) 37.8 Est GFR (Non-Af Amer) 32.6 BUN/Creatinine Ratio 14.5 Glucose 176 H POC Glucose 175 H Estimat Average Glucose Hemoglobin A1c Lactate 1.3 Calcium 8.8 Total Bilirubin 0.8 AST 19 ALT 34 Alkaline Phosphatase 112 Troponin I < 0.015 Total Protein 7.0 Albumin 3.6 Globulin 3.4 Albumin/Globulin Ratio 1.1 Lipase 332 Urine Color Urine Appearance Urine pH Ur Specific [place] Urine Protein Urine Glucose (UA) Urine Ketones Urine Blood Urine Nitrite Urine Bilirubin Urine Urobilinogen Ur Leukocyte Esterase 12/16/18 12/16/18 12/16/18 02:13 02:13 08:06 WBC 7.08 RBC 3.90 L Hgb 11.8 L Hct 33.3 L MCV 85.4 MCH 30.3 MCHC 35.4 RDW Std Deviation 41.8 RDW Coeff of [place] 13.5 Plt Count 181 MPV 9.1 Immature Gran % (Auto) Neut % (Auto) Lymph % (Auto) Jack % (Auto) Eos % (Auto) Baso % (Auto) Immature Gran # (Auto) Neut # (Auto) Lymph # (Auto) Jack # (Auto) Eos # (Auto) Baso # (Auto) PT INR D-Dimer Sodium Potassium Chloride Carbon Dioxide Anion Gap BUN Creatinine Est Cr Clr Drug Dosing Est GFR ( Amer) Est GFR (Non-Af Amer) BUN/Creatinine Ratio Glucose POC Glucose 150 H Estimat Average Glucose 189 Hemoglobin A1c 8.2 H Lactate Calcium Total Bilirubin AST ALT Alkaline Phosphatase Troponin I Total Protein Albumin Globulin Albumin/Globulin Ratio Lipase Urine Color Urine Appearance Urine pH Ur Specific [place] Urine Protein Urine Glucose (UA) Urine Ketones Urine Blood Urine Nitrite Urine Bilirubin Urine Urobilinogen Ur Leukocyte Esterase Temp Pulse Resp BP Pulse Ox 12/16/18 07:22 36.7 C 78 16 142/73 H 98 12/16/18 00:59 131/64
--- NOTE | 2018-12-16 14:38 | Discharge Summary ---
Date of Service December 16, 2018 Admission HPI Per Admitting Provider This is a 63-year-old male with a PMH of nonobstructive CAD, thoracic aortic aneurysm, HTN, DM II, CKD III, PAD with h/o multiple BLE stents (most recently with re-stenting to R popliteal artery in 2017) and other medical problems listed below who presents with worsening back and chest pain since yesterday. Patient states that he has had pain in the right upper back, "inside shoulder blade" for the past week that is made worse with a deep breath. Starting yesterday evening, patient noted that right shoulder blade pain radiated to right side of chest and was associated with nausea, diaphoresis and one episode of vomiting. Episode lasted for approximately 45 minutes. Patient endorsed an additional episode similar in character and length occurring this morning, with another bout of emesis. Also experiencing tingling in R arm. Came in the ED for further evaluation. Follows with Chele Alvarenga of cardiology group for nonocclusive CAD as well as thoracic aortic aneurysm, most recently measuring at 4.2 cm on 2D echo in October 2018. Also follows with Dr. Olsen for peripheral vascular disease at [facility] [place] and has required multiple stents in bilateral lower extremities since 2013. Currently, patient is not experiencing pain at rest. With inspiration, patient does have right scapular pain with radiation to right chest with associated nausea. Denies any lightheadedness,headache, palpitations or abdominal pain. Is hemodynamically stable. BP measured in right arm is 154/79 and in left arm is 156/78. Initial troponin is negative. D-dimer is negative. Lipase is 1073. Admission Exam Per Admitting Provider General Appearance: WD/WN, no apparent distress, resting comfortably Head: normocephalic, atraumatic Eyes: normal inspection, PERRL, EOMI ENT: hearing grossly normal, pharynx normal (moist mucous membranes) Neck: supple, no JVD, no adenopathy Respiratory/Chest: lungs clear to auscultation. No wheezes, rales or rhonci. No respiratory distress or accessory muscle use Cardiovascular: regular rate, rhythm, no murmur, normal peripheral pulses Abdomen/GI: normal bowel sounds, soft, TTP in LLQ, some with deep palpation of epigastrium Back: TTP along R paraspinous muscles of thoracic spine, no deformities noted Extremities/Musculoskelatal: normal inspection, no calf tenderness, normal capillary refill, no pedal edema Neurologic/Psych: alert, normal mood/affect, oriented x 3, + anxious Skin: normal color, warm/dry Principal Diagnosis ACUTE PANCREATITIS POSSIBLY FROM PASSED GB STONE VS. MUSCULAR PAIN Discharge Exam General- oriented x 3, not in distress, speaks in sentences with no effort or accessory muscle use Head- atraumatic Eyes- PERRL, EOMI, anicteric ENT- oropharynx clear Neck- supple, no JVD, no adenopathy, no thyromegaly; carotids +2/2, no bruits appreciated Lungs- clear to auscultation bilaterally, no rales/wheezes Heart- normal rate, regular rhythm; no murmur, no gallop, no rub appreciated Abdomen- normal bowel sounds, nondistended, soft, nontender, no masses or hepatosplenomegaly Extremities- no pretibial edema, no calf tenderness; peripheral pulses intact Neuro- alert, oriented x 3; CN 2-12 grossly intact; motor 5/5 bilaterally;sensation 100% on all extremities; no other gross focal neurologic deficits Skin- warm & dry Discharge Data Allergies Allergy/AdvReac Type Severity Reaction Status Date / Time Iodinated Contrast- Oral and Allergy Unknown shaking, Verified 12/15/18 16:22 IV Dye severe anxiety Consultations 12/15/18 17:32 ED Decision to Admit Stat 12/16/18 08:19 Consult Gastroenterology Routine Ordered Studies 12/15/18 15:28 CT abd pelvis wo con Stat CT OF THE ABDOMEN AND PELVIS WITHOUT CONTRAST CLINICAL HISTORY: Elevated lipase and R shoulder pain COMPARISON STUDY: CT of the abdomen and pelvis August 14, 2017. TECHNIQUE: Axial images of the abdomen and pelvis were obtained without IV contrast. Images were reviewed in the axial, sagittal, and coronal planes. Automated exposure control was utilized for the study. A dose lowering technique was utilized adhering to the principles of ALARA. FINDINGS: Numerous calcifications within each renal sinus likely reflect vascular calcifications. Sensitivity for detection of renal calculi is diminished. There are no ureteral calculi. There is no hydronephrosis or hydroureter. Water attenuation bilateral renal lesions are suboptimally assessed on this unenhanced exam but favor cysts. Unenhanced images of the liver, right adrenal gland and spleen are normal. Left adrenal hypodense nodules are benign. Appearance of the pancreas is unremarkable on this unenhanced exam. There is no peripancreatic infiltration or fluid. There is no biliary or pancreatic ductal dilatation. There is no peripancreatic or pericholecystic infiltration. There is extensive plaque of the abdominal aorta. There is no evidence for a bowel obstruction. The appendix is normal. There is no lymphadenopathy. No suspicious osseous lesions are noted. IMPRESSION: 1. Normal CT appearance of the pancreas. 2. No acute process within the abdomen or pelvis on unenhanced exam. 12/15/18 18:56 CT angio chest dissec wo/w con Urgent CT ANGIOGRAM OF THE CHEST COMBO CLINICAL HISTORY: Atypical chest pain. COMPARISON STUDY: Chest x-ray dated 12/15/2018. Chest CT scans dated 08/16/2017 and 08/14/2017. TECHNIQUE: Before and following the IV administration of 100 cc of Optiray 320, CT angiogram of the chest was performed from the thoracic inlet to the upper abdomen utilizing the dissection protocol. Images are reviewed in the axial, sagittal, and coronal planes. 3-D MIPS images are created and assessed. IV contrast was administered without complication. A dose lowering technique was utilized adhering to the principles of ALARA. CT DOSE: 1202.01 mGy.cm FINDINGS: Thyroid: Imaged portions of the thyroid gland are normal in size and attenuation. There are numerous subcentimeter low-attenuation thyroid nodules. Thoracic aorta: No intramural hematoma is seen on the unenhanced series. There i s atherosclerotic calcification of the thoracic aorta. There is mild aneurysmal dilatation of the ascending thoracic aorta which measures up to 4.1 cm. The remainder of the thoracic aorta is normal in caliber. The arch demonstrates standard 3-vessel anatomy. The arch vessels are widely patent. No dissection is seen. Pulmonary vasculature: The pulmonary trunk is normal in caliber. There are filling defects identified within the main, lobar, or segmental pulmonary branches to indicate pulmonary embolus. Heart: The heart is top normal in size and without pericardial effusion. The coronary arteries are densely calcified. Lungs and pleural spaces: There is no airspace consolidation or pleural effusion. There are foci of bibasilar scarring/atelectasis the trachea and central airways are clear. Mediastinum: There is no mediastinal lymphadenopathy. Susan: Clear. Axillae: There is no axillary lymphadenopathy. Upper abdomen: Left adrenal adenomas are unchanged. There is mild nodular thicke rohit of the right adrenal gland. A tiny hiatal hernia is noted. Skeletal structures: Mild degenerative change is noted throughout the thoracic spine. No lytic or blastic bony lesions are seen. IMPRESSION: 1. There is mild aneurysmal dilatation of the ascending thoracic aorta which measures up to 4.1 cm. The remainder of the thoracic aorta is normal in caliber and no dissection is seen. 2. There is no evidence of pulmonary embolus in the main, lobar, or segmental pulmonary arteries. 3. There is no airspace consolidation or pleural effusion. 4. The coronary arteries are densely calcified. 5. Additional findings as above. Hospital Course (1) Chest pain: (2) Epigastric pain: This is a 63-year-old male with a PMH of nonobstructive CAD, thoracic aortic aneurysm, HTN, DM II, CKD III, PAD with h/o multiple BLE stents (most recently with re-stenting to R popliteal artery in 2017) and other medical problems listed below who presents with worsening back and chest pain since yesterday. Patient states that he has had pain in the right upper back, "inside shoulder blade" for the past week that is made worse with a deep breath. Starting yesterday evening, patient noted that right shoulder blade pain radiated to right side of chest and was associated with nausea, diaphoresis and one episode of vomiting. Episode lasted for approximately 45 minutes. Patient endorsed an additional episode similar in character and length occurring this morning, with another bout of emesis. Also experiencing tingling in R arm. Came in the ED for further evaluation. Follows with Chele Alvarenga of cardiology group for nonocclusive CAD as well as thoracic aortic aneurysm, most recently measuring at 4.2 cm on 2D echo in October 2018. Also follows with Dr. Olsen for peripheral vascular disease at [facility] [place] and has required multiple stents in bilateral lower extremities since 2013. Currently, patient is not experiencing pain at rest. With inspiration, patient does have right scapular pain with radiation to right chest with associated nausea. Denies any lightheadedness,headache, palpitations or abdominal pain. Is hemodynamically stable. BP measured in right arm is 154/79 and in left arm is 156/78. Initial troponin is negative. D-dimer is negative. Lipase is 1073. (3) Elevated lipase: This is a 63-year-old male with a PMH of nonobstructive CAD, thoracic aortic aneurysm, HTN, DM II, CKD III, PAD with h/o multiple BLE stents (most recently with re-stenting to R popliteal artery in 2017) and other medical problems listed below who presents with worsening back and chest pain since yesterday. -Hemodynamically stable, no troponin elevation or EKG changes -H/o stable thoracic aortic aneurysm measuring 4.8 cm at aortic root and ascending aorta on 2D echo from October 2018 (stable with 2018 echo) -- POSSIBLE ACUTE PANCREATITIS from passed cholelithiasis? GB sludge? given IV fluids symptoms resolved lipase normalized LFTs normal CT abdomen/pelv: no pancreatitis (+) thyroid nodules and adrenal adenomas--> please ff up and monitor as outpatient; full report noted in Ordered Studies above - continue IV fluids - GI consulted- Dr. Abernathy/BABAK Landrum--> recommend outpatient MRCP -- ACS ruled out troponins negative EKG no ischemia -- Thoracic Aortic Aneurysm Dissection ruled out CT chest: no dissection no PE (4) Thoracic aortic aneurysm: H/o stable thoracic aortic aneurysm measuring 4.8 cm at aortic root and ascending aorta on 2D echo from October 2018 (stable with 2018 echo) -Follows with JESSIE Alvarenga Q6 months (5) CKD (chronic kidney disease), stage III: Creatinine mildly elevated from baseline at 2.5 (baseline ~ 2.2) -Likely pre-renal in setting of vomiting episodes, decreased PO intake - given IV Fluids back to baseline at 2.12 -- patient receive IV contrast for CT angio on admission, advised to hold lasix from thurs to sat, resume Thursday12/19/18 repeat bun/crea on ff up with PCP Thursday12/21/18 (6) CAD (coronary artery disease): Nonobstructive CAD on 2014 diagnostic cardiac cath -Continue medical management with statin, aspirin, beta-lotus (7) PAD (peripheral artery disease): History of multiple vascular interventions at [facility] [place] by Dr. Olsen from 2013- 2016, most recently with re-stenting of R popliteal A in January 2017 -Continue aspirin, plavix, statin (8) HTN (hypertension): Mild elevation in setting of pain, anxiety -Continue home amlodipine, Coreg, hydralazine (9) Diabetes mellitus, type II: A1c of 9.2 in Aug 2018 -A1c ordered : 8.2 -Basal bolus insulin per protocol while in-patient -BSG AC HS -- outpatient ff up (10) HLD (hyperlipidemia): Continue statin (11) BPH (benign prostatic hyperplasia): Continue terazosin DVT Ppx: SQ heparin Code status: FULL PCP: Alyse Dispo: d/c home ff up with PCP 12/21 ff up with GI in 1-2 weeks for MRCP ff up with [employer] 2 weeks (12) Abnormal finding on CT scan: Total Time Total Time Spent Total Time Spent (In Minutes): 45 minutes Discharge Plan Discharge Items Patient Disposition: Home - Self-Care Reason For Visit: CHEST/BACK PAIN Discharge Diagnosis: CHEST PAIN, BACK PAIN, POSSIBLY FROM ACUTE PANCREATITIS; PASSED GALLBLADDER STONE VS. MUSCULAR PAIN Discharge Goals: Decrease discomfort, Diagnostic testing and Therapeutic intervention Activity: Resume your previous activity Lifting: Wait until after follow-up appointment Exercise/Sports: Wait until after follow-up appointment Driving/Machine Use Comment: NO DRIVING UNTIL RE-EVALUATED BY PRIMARY CARE PHYSICIAN Non-emergency contact: Primary Care Provider Call non-emergency contact if: you have any medication questions and you have a fever Follow-up/Referrals: Chele Cullen MD [Primary Care Provider] - 12/21/18 11:00 am Diet: Carb Consistent or DM2 and Heart Healthy Addtl Provider Instructions: PLEASE RETURN TO THE ER IMMEDIATELY IF WITH RECURRENCE OF SYMPTOMS. DO NOT TAKE LASIX AND SPIRONOLACTONE TODAY UNTIL THURSDAY. THEN RESUME TAKING LASIX AND SPIRONOLACTONE ON WEDNESDAY DECEMBER 19, 2018. CALL PRIMARY CARE PHYSICIAN IMMEDIATELY IF WITH LEG SWELLING OR SHORTNESS OF BREATH. FOLLOW UP WITH [facility] FOR MRCP IN 1-2 WEEKS. TEL NO. FOLLOW UP WITH [facility]CH[facility] APPRENTICE IN 2 WEEKS. Prescriptions: Continued atorvastatin 40 mg Tablet 40 mg PO DAILY RF: 0 carvedilol [Coreg] 25 mg Tablet 37.5 mg PO BID RF: 0 clopidogrel [Plavix] 75 mg Tablet 75 mg PO DAILY RF: 0 aspirin [Aspir-81] 81 mg Tablet,Delayed Release (Dr/Ec) 81 mg PO DAILY RF: 0 amlodipine 10 mg Tablet 10 mg PO DAILY RF: 0 hydralazine 50 mg Tablet 1.5 tabs PO TID RF: 0 Lantus Solostar U-100 Insulin 100 unit/mL (3 mL) Insulin Pen 34 unit SUBCUT BID RF: 0 Vitamin D3 4,000 unit Capsule 4,000 unit PO DAILY RF: 0 terazosin 2 mg Capsule 4 mg PO HS RF: 0 Discontinued spironolactone 25 mg Tablet 12.5 mg PO DAILY RF: 0 furosemide [Lasix] 40 mg Tablet 40 mg PO BID RF: 0 Stand-Alone Forms: Call Back Authorization, [facility] Discharge Orders: Discharge Order (Routine); Ordered 12/16/18 Ordered By: Saturnino Delgado Admission Data Admit Date/Time: 12/15/18 19:02 Attending Provider: Saturnino Delgado Admit Provider: Ines Gaffney Primary Care Provider: Chele Cullne Other Providers: Ines Gaffney ; Elijah Sumner ; Rema Barker ; Dasha Vazquez ; [place] ; Amita Magana ; Verónica Davenport ; Reyna Peguero ; Deric Arce ; Anoop Abernathy ; Meliza Dixon ; Janki Hebert ; Ivy Landrum ; Patricia Roldan ; Domitila Lovell Service: Medical
[2018-12-16 14:50] VITALS: BP 146/80; PULSE 59
== END 2018-12-16 15:27 | disposition home or self-care (01) ==
LOC: 4W 14:07 → ED 14:07 → 4W 19:18

== ENCOUNTER 2020-01-05 15:20 | Inpatient (IN) ==
[2020-01-05 16:42] LABS: Basophils # (auto) 0.02 K/uL (0-0.2); Basophils % (auto) 0.4 %; Eosinophils # (auto) 0.06 K/uL (0-0.5); Eosinophils % (auto) 1.1 %; Hematocrit (blood only) 30.2 % (42-52); Hemoglobin 10.5 g/dL (14.0-18.0); Lymphocytes # (auto) 1.59 K/uL (1.2-3.4); Lymphocytes % (auto) 30.1 %; Mean Corpuscular Hemoglobin 30.7 pg (25-34); Mean Corpuscular Hgb Conc 34.8 g/dL (32-36); Mean Corpuscular Volume 88.3 fL (80-100); Mean Platelet Volume 9.4 fL (7.4-10.4); Monocytes % (auto) 9.5 %; Neutrophils # (auto) 3.11 K/uL (1.4-6.5); Neutrophils % (auto) 58.9 %; Platelet Count 188 K/uL (130-400); RDW Coefficient of Variation 13.9 % (11.5-14.5); RDW Standard Deviation 44.6 fL (36.4-46.3); Red Blood Count 3.42 M/uL (4.7-6.1); White Blood Count 5.28 K/uL (4.8-10.8)
--- NOTE | 2020-01-05 16:45 | Emergency Department Note ---
Impression & Plan Syncope, JEROME (acute kidney injury), SOB (shortness of breath) ED Provider Note NAME: PATRICIA CALVILLO AGE: 64 SEX: M : 1955 ARRIVES VIA: Walk-In INFORMANT: Patient, ED PROVIDER(S): Cristino Higgins MD Chief Complaint: Shortness of breath, dyspnea on exertion HPI: Does present with concerns for shortness of breath dyspnea and exertion. The patient states it is gotten worse over the last 1 to 2 days but is been noticeable for the last several weeks. Patient denies coronavirus contacts or sickness. The patient did recently see Chele Alvarenga did have a follow-up TTE which showed LVEF of 60% with mild mitral regurg. The patient does have some a sending aorta and aortic root dilatation at approximately 4 cm which is not a change from previous study of October 28, 2018. The patient also did relate that he is to be able to ambulate without any difficulty but has had some associated burning hip pain. The patient states that today while trying to walk he got very lightheaded and passed out. Patient denies any palpitations or chest pains. Patient denies any nausea or vomiting, fevers, chills, or cough. Patient is not a smoker and never did smoke. The patient denies any lower extremity swelling or weight gain. ROS: See HPI for pertinent positives and negatives. A total of 10 systems were reviewed and otherwise negative. Past medical history: See below Surgical history: See below Social history: See below Physical Exam: GENERAL: NAD, non-toxic. Wearing a mask and glasses. EYE EXAM: Normal conjunctiva. PERRL, no anisocoria and EOM's grossly intact w/o pain. NECK: Supple, no nuchal rigidity, no adenopathy, non-tender. No signs of meningismus. LUNGS: Clear to auscultation. Normal chest wall mechanics. HEART: NSR, no MRG. ABDOMEN: Abdomen soft, non-tender, normo-active bowel sounds, no masses, no rebound or guarding. BACK: No CVA TTP. SKIN: No rashes and no bruising. UPPER EXTREMITIES: Upper extremities are grossly normal. LOWER EXTREMITIES: Grossly normal, no edema. Negative Homans sign bilaterally. NEURO EXAM: A&O x3, cranial nerves II-XII grossly intact, normal speech, moves all 4 extremities on command w/o issue. Differential diagnoses: Vasovagal event, dehydration, infection, hypoglycemia, electrolyte abnormalities, cardiac sources, intracerebral event, pulmonary embolism, seizure, toxicologic, neurologic, as well as other pathologies. Course: Patient was seen and evaluated the bedside. Full history physical exam was performed. EKG: Indication: Syncope, shortness of breath Normal sinus rhythm, rate of 60, normal intervals, normal axis, trace elevation in lead II and III. No concavity noticed and no change from December 15, 2018. Imaging Studies: Radiology results as stated below per my review in the radiologist's interpretation: XR chest 1V portable CLINICAL HISTORY: Dyspnea COMPARISON STUDY: 12/15/2018 FINDINGS: The cardiac and mediastinal contours are normal. There is no evidence of focal pulmonary consolidation. There is no evidence of failure. No pleural effusions are visualized.[ IMPRESSION: No active disease in the chest. ACT 112: Negative or not required by law. Electronically signed by: Javy Love M.D. 01/05/2020 5:10 PM Dictated: 01/05/201709 Transcribed: 01/05/201709 Cardiac monitoring: An order was placed for continuous cardiac monitoring. The monitor shows a rate of 64 with sinus rhythm. MDM: Patient did present with concern for syncope and shortness of breath. The patient does have a known history of stents in his legs which he does take Plavix. The patient did have an episode of syncope today. Patient denies any headache or chest pains. Patient did have blood work completed along with an EK G troponin and chest x-ray. Did review an outpatient echocardiogram that was completed on 12/20/2019. Showed unchanged thoracic aortic dilatation. Patient does have equal and symmetric pulses in his bilateral upper extremities with soft compartments and is well perfused in his lower extremities as well. I did speak the on-call hospitalist who agreed to further evaluate treat the patient. He does have some very mild JEROME but no elevations in troponin or BNP. Patient's EKG does not appear changed. Patient did not complain of any headache no signs of trauma. Patient denied any tongue biting or incontinence and there was no reported seizure activity. Do not believe the patient requires CT at this time. Patient was admitted to the [facility] service. Past Med/Surg History Medical History Acquired hallux valgus of right foot (Acute) BPH (benign prostatic hyperplasia) (Chronic) CAD (coronary artery disease) (Chronic) Callus (Acute) CKD (chronic kidney disease), stage III (Chronic) Diabetes mellitus with diabetic polyneuropathy (Acute) Diabetes mellitus, type II (Chronic) Hallux rigidus, left foot (Acute) Hallux rigidus, right foot (Acute) Hallux valgus (acquired), left foot (Acute) HLD (hyperlipidemia) (Chronic) HTN (hypertension) (Chronic) PAD (peripheral artery disease) (Chronic) History of multiple stenting procedures to lower extremities, most recently restenting and angioplasty of right popliteal artery in January 2017 at [facility] Skin ulcer of left great toe (Acute) Thoracic aortic aneurysm (Chronic) Aortic root and ascending aorta mildly enlarged, per October 2018 GENNA, measuring at 4.2 cm (no significant change from 2018) Family History Other Heart disease Social History Preferred Language: Martiniquais Communication Ability: Effective 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: No Beliefs That Will Affect Care: None marital status: Single Current Living Situation: Significant Other current occupational status: disabled Feels Safe at Home: Yes Smoking Status: Never smoker Second Hand Exposure: No ; Hx Alcohol Use: No Hx Substance Use: No Allergies Allergies Allergy/AdvReac Type Severity Reaction Status Date / Time No Known Allergies Allergy Verified 01/05/20 16:31 Home Meds Home Medications Medication Instructions Recorded Confirmed Lantus Solostar U-100 Insulin 34 unit SUBCUT BID 12/15/18 01/05/20 amlodipine 10 mg PO QAM 12/15/18 01/05/20 aspirin [Aspir-81] 81 mg PO QAM 12/15/18 01/05/20 atorvastatin 40 mg PO QAM 12/15/18 01/05/20 carvedilol [Coreg] 37.5 mg PO BID 12/15/18 01/05/20 clopidogrel [Plavix] 75 mg PO QAM 12/15/18 01/05/20 hydralazine 1.5 tabs PO TID 12/15/18 01/05/20 cholecalciferol (vitamin D3) 100 mcg PO DAILY 01/05/20 01/05/20 [Vitamin D3] furosemide 40 mg PO BID 01/05/20 01/05/20 lisinopril 10 mg PO DAILY 01/05/20 01/05/20 spironolactone 12.5 mg PO MOWEFR 01/05/20 01/05/20 terazosin 5 mg PO DAILY 01/05/20 01/05/20 Results & Data (ED) Vital Signs Vital Signs - 24 hr 01/05/20 15:22 01/05/20 15:31 01/05/20 15:40 Temperature 36.9 C Temperature Source Oral Pulse Rate 64 63 Pulse Rate from SpO2 Sensor 62 Respiratory Rate 20 16 Respiratory Effort / Characteristics Non-Labored Respiratory Depth Normal Blood Pressure 110/64 Blood Pressure Mean 79 Pulse Oximetry 100 99 99 Oxygen Delivery Method Room Air Nasal Cannula Oxygen Flow Rate 2 Sepsis Recent Fever Within 48 Hours No Sepsis Action Taken by Nursing No Action Required 01/05/20 15:50 01/05/20 16:00 01/05/20 16:10 Temperature Temperature Source Pulse Rate 59 L 61 61 Pulse Rate from SpO2 Sensor 59 L 60 61 Respiratory Rate 24 16 15 Respiratory Effort / Characteristics Respiratory Depth Blood Pressure 114/60 Blood Pressure Mean 72 Pulse Oximetry 99 99 98 Oxygen Delivery Method Oxygen Flow Rate Sepsis Recent Fever Within 48 Hours Sepsis Action Taken by Nursing 01/05/20 16:20 01/05/20 16:30 01/05/20 16:40 Temperature Temperature Source Pulse Rate 60 63 58 L Pulse Rate from SpO2 Sensor 60 64 59 L Respiratory Rate 20 17 17 Respiratory Effort / Characteristics Respiratory Depth Blood Pressure Blood Pressure Mean Pulse Oximetry 97 98 98 Oxygen Delivery Method Room Air Oxygen Flow Rate Sepsis Recent Fever Within 48 Hours Sepsis Action Taken by Nursing 01/05/20 16:50 01/05/20 17:00 01/05/20 17:01 Temperature Temperature Source Pulse Rate 61 62 60 Pulse Rate from SpO2 Sensor 61 59 L 61 Respiratory Rate 24 20 22 Respiratory Effort / Characteristics Respiratory Depth Blood Pressure 108/65 Blood Pressure Mean 79 Pulse Oximetry 94 96 96 Oxygen Delivery Method Oxygen Flow Rate Sepsis Recent Fever Within 48 Hours Sepsis Action Taken by Nursing 01/05/20 17:10 01/05/20 17:20 01/05/20 17:30 Temperature Temperature Source Pulse Rate 58 L 59 L 59 L Pulse Rate from SpO2 Sensor 59 L 59 L 59 L Respiratory Rate 16 22 21 Respiratory Effort / Characteristics Respiratory Depth Blood Pressure 123/62 Blood Pressure Mean 80 Pulse Oximetry 98 96 96 Oxygen Delivery Method Oxygen Flow Rate Sepsis Recent Fever Within 48 Hours Sepsis Action Taken by Nursing 01/05/20 17:31 01/05/20 17:40 01/05/20 17:50 Temperature Temperature Source Pulse Rate 60 60 59 L Pulse Rate from SpO2 Sensor 60 60 59 L Respiratory Rate 16 18 20 Respiratory Effort / Characteristics Respiratory Depth Blood Pressure Blood Pressure Mean Pulse Oximetry 96 95 96 Oxygen Delivery Method Oxygen Flow Rate Sepsis Recent Fever Within 48 Hours Sepsis Action Taken by Nursing 01/05/20 18:00 01/05/20 18:01 01/05/20 18:10 Temperature Temperature Source Pulse Rate 60 58 L 61 Pulse Rate from SpO2 Sensor 60 57 L 61 Respiratory Rate 17 23 14 Respiratory Effort / Characteristics Respiratory Depth Blood Pressure 130/69 Blood Pressure Mean 100 Pulse Oximetry 98 99 99 Oxygen Delivery Method Oxygen Flow Rate Sepsis Recent Fever Within 48 Hours Sepsis Action Taken by Nursing 01/05/20 18:20 01/05/20 18:30 01/05/20 18:31 Temperature Temperature Source Pulse Rate 60 58 L 60 Pulse Rate from SpO2 Sensor 59 L 59 L 59 L Respiratory Rate 19 13 18 Respiratory Effort / Characteristics Respiratory Depth Blood Pressure 130/67 Blood Pressure Mean 94 Pulse Oximetry 99 97 98 Oxygen Delivery Method Oxygen Flow Rate Sepsis Recent Fever Within 48 Hours Sepsis Action Taken by Assisted Medications Current Medication List: was personally reviewed by me Laboratory Data Attestation: I reviewed the patient's lab results. Result diagrams: 01/05/20 16:30 01/05/20 16:30 Lab Results 01/05/20 01/05/20 01/05/20 Range/Units 16:30 16:30 16:30 WBC 5.28 (4.8-10.8) K/uL RBC 3.42 L (4.7-6.1) M/uL Hgb 10.5 L (14.0-18.0) g/dL Hct 30.2 L (42-52) % MCV 88.3 (80-100) fL MCH 30.7 (25-34) pg MCHC 34.8 (32-36) g/dL RDW Std Deviation 44.6 (36.4-46.3) fL RDW Coeff of [place]ivid[place] 13.9 (11.5-14.5) % Plt Count 188 (130-400) K/uL MPV 9.4 (7.4-10.4) fL Immature Gran % (Auto) 0.0 % Neut % (Auto) 58.9 % Lymph % (Auto) 30.1 % Lyon % (Auto) 9.5 % Eos % (Auto) 1.1 % Baso % (Auto) 0.4 % Immature Gran # (Auto) 0.00 (0.00-0.02) K/uL Neut # (Auto) 3.11 (1.4-6.5) K/uL Lymph # (Auto) 1.59 (1.2-3.4) K/uL Lyon # (Auto) 0.50 (0.11-0.59) K/uL Eos # (Auto) 0.06 (0-0.5) K/uL Baso # (Auto) 0.02 (0-0.2) K/uL PT 11.4 (9.0-12.0) Seconds INR 1.1 (0.9-1.1) APTT 23.9 (21.0-31.0) Seconds PTT Ratio 0.9 Sodium 137 (136-145) mmol/L Potassium 4.8 (3.5-5.1) mmol/L Chloride 109 H (98-107) mmol/L Carbon Dioxide 20 L (21-32) mmol/L Anion Gap 8.0 (3-11) BUN 57 H (7-18) mg/dl Creatinine 3.24 H (0.6-1.4) mg/dl Est Cr Clr Drug Dosing Not Reportable Est GFR ( Amer) 22.5 Est GFR (Non-Af Amer) 19.4 BUN/Creatinine Ratio 17.7 (10-20) Glucose 216 H (70-99) mg/dl Calcium 8.7 (8.5-10.1) mg/dl Phosphorus 2.7 (2.5-4.9) mg/dl Magnesium 2.2 (1.8-2.4) mg/dl Total Bilirubin 0.9 (0.2-1) mg/dl AST 16 (15-37) U/L ALT 34 (12-78) U/L Alkaline Phosphatase 87 (45-117) U/L Troponin I < 0.015 (0-0.045) ng/ml NT-Pro-B Natriuret Pep 139 (0-900) pg/ml Total Protein 7.4 (6.4-8.2) gm/dl Albumin 3.8 (3.4-5.0) gm/dl Globulin 3.6 (2.5-4.0) gm/dl Albumin/Globulin Ratio 1.1 (0.9-2) Blood Pressure Blood Pressure Findings: Normal blood pressure Blood Pressure Disposition: did not require urgent referral Discharge Plan Visit Data *Final* Discharge Date/Time: 01/05/20 19:22 Chief Complaint: Shortness of Breath/Dyspnea Stated Complaint: SOB, TINGLING SENSATIONS ED Provider: Cristino Higgins Discharge Problem: Syncope, JEROME (acute kidney injury), SOB (shortness of breath) Patient Disposition: Admitted As Inpatient Discharge Instructions Interventions: ED Discharge Assessment Last Done: 01/05/20 19:22 Discharge Problem: Syncope Qualifiers: Syncope type: unspecified Qualified Code(s): R55 - Syncope and collapse
[2020-01-05 16:56] LABS: INR 1.1 (0.9-1.1); Partial Thromboplastin Ratio 0.9; Partial Thromboplastin Time 23.9 Seconds (21.0-31.0); Prothrombin Time 11.4 Seconds (9.0-12.0)
[2020-01-05 17:02] LABS: Alanine Aminotransferase 34 U/L (12-78); Albumin Level 3.8 gm/dl (3.4-5.0); Aspartate Aminotransferase 16 U/L (15-37); BUN Creatinine Ratio 17.7 (10-20); Blood Urea Nitrogen 57 mg/dl (7-18); Calcium 8.7 mg/dl (8.5-10.1); Carbon Dioxide 20 mmol/L (21-32); Chloride 109 mmol/L (98-107); Est GFR (African American) 22.5; Est GFR (Non-African American) 19.4; Glucose 216 mg/dl (70-99); Magnesium 2.2 mg/dl (1.8-2.4); Potassium 4.8 mmol/L (3.5-5.1); Sodium 137 mmol/L (136-145)
[2020-01-05 17:07] LABS: Albumin Globulin Ratio 1.1 (0.9-2); Alkaline Phosphatase 87 U/L (45-117); Bilirubin,Total 0.9 mg/dl (0.2-1); Globulin 3.6 gm/dl (2.5-4.0); NT Pro B Type Natriuretic Pept 139 pg/ml (0-900); Phosphorus 2.7 mg/dl (2.5-4.9); Total Protein 7.4 gm/dl (6.4-8.2); Troponin I < 0.015 ng/ml (0-0.045)
--- NOTE | 2020-01-05 17:12 | XRay Report ---
XR chest 1V portable CLINICAL HISTORY: Dyspnea COMPARISON STUDY: 12/15/2018 FINDINGS: The cardiac and mediastinal contours are normal. There is no evidence of focal pulmonary co nsolidation. There is no evidence of failure. No pleural effusions are visualized.[ IMPRESSION: No active disease in the chest. ACT 112: Negative or not required by law. Electronically signed by: Javy Love M.D. 01/05/2020 5:10 PM
--- NOTE | 2020-01-05 18:46 | History & Physical Report ---
Date of Service January 05, 2020 Assessment & Plan (1) Syncope: (2) Acute kidney injury superimposed on chronic kidney disease: (3) CAD (coronary artery disease): (4) BPH (benign prostatic hyperplasia): (5) Thoracic aortic aneurysm: (6) PAD (peripheral artery disease): (7) Diabetes mellitus, type II: (8) HTN (hypertension): This is a 64-year-old male with a PMH of nonobstructive CAD, thoracic aortic aneurysm, HTN, DM II, CKD III, PAD with h/o multiple BLE stents (most recently with stent to L proximal superficial femoral artery in August 2019) and other medical problems listed below who presents with worsening lightheadedness and syncopal event earlier today. Syncope: -Likely orthostatic hypotension 2/2 dehydration in setting of multiple blood pressure medications, including terazosin and diuretics -Orthostatic vitals ordered. Gentle hydration. Hold diuretics and terazosin -Also with recent ectopy noted on outpatient EKG. Zio patch results pending. Monitor on telemetry Dyspnea on exertion: -Sub-acute issue. Likely due to ectopy. Monitor on telemetry -Outpatient workup: EKG demonstrating 6 capturing/documenting symptomatic sensed ventricular ectopy Zio patch monitor has been worn and patient is awaiting results TTE from earlier this May shows preserved EF of 60% and stable mildly enlarged (4.0 cm) aortic root and ascending aorta (4.2 cm). Echo results unchanged from 10/28/2018 -O2 saturation of 96% on room air. CXR without issue. EKG unchanged. Afebrile, no evidence of infection JEROME superimposed on CKD III: Cr elevated at 3.24 (baseline ~2) in setting of dehydration 2/2 diuretics -Gentle hydration, hold spironolactone, lasix and lisinopril Thoracic aortic aneurysm: H/o stable thoracic aortic aneurysm measuring 4.8 cm at aortic root and ascendin g aorta on 2D echo from October 2018 (stable with 2019 TTE from a few weeks prior) CAD (coronary artery disease): Nonobstructive CAD on 2014 diagnostic cardiac cath. Continue medical management with statin, aspirin, beta-lotus PAD (peripheral artery disease): History of multiple vascular interventions at [facility] by Dr. Olsen from [id number], most recently with stent to L proximal superficial femoral artery in August 2019 -Continue aspirin, plavix, statin HTN (hypertension): Lower than usual, has been symptomatic -Continue home amlodipine, Coreg, hydralazine. Hold lisinopril, diuretics and terazosin. May need OP adjustment Diabetes mellitus, type II: A1c of 6.9 in Mar 2019 -Repeat A1c ordered -Basal bolus insulin per protocol while in-patient -BSG AC HS DVT Ppx: SQ heparin Code status: FULL PCP: Alyse Dispo: Admitted to [facility]. Plan to return home once medically stable. Patient seen in collaboration with Dr. Ballesteros. Please see addendum. History of Present Illness Chief Complaint: syncopal episode Primary Care Provider: Chele Cullen MD This is a 64-year-old male with a PMH of nonobstructive CAD, thoracic aortic aneurysm, HTN, DM II, CKD III, PAD with h/o multiple BLE stents (most recently with stent to L proximal superficial femoral artery in August 2019) and other medical problems listed below who presents with worsening lightheadedness and syncopal event earlier today. Patient endorses worsening lightheadedness and dyspnea on exertion for the past 6 weeks. Was walking around the store today when he felt lightheaded and like he might pass out. Dropped to his knees and passed out before coming to with his by his side. Denies any head trauma. Denies any preceding visual changes or chest pain. Has noticed his blood pressure has been lower than usual for the past few weeks. Normally SBP is ~140 and recent BPs have been 100/60 with associated lightheadedness with postural changes. Was prescribed lisinopril 10mg in September. In regards to dyspnea on exertion, saw JESSIE Alvarenga earlier this month and had EKG demonstrating 6 capturing/documenting symptomatic sensed ventricular ectopy. Zio patch monitor has been worn and patient is awaiting results. TTE from earlier this May shows preserved EF of 60% and stable mildly enlarged (4.0 cm) aortic root and ascending aorta (4.2 cm). Echo results unchanged from 10/28/2018. Currently, patient is feeling well at rest except for positional lightheadedness. Denies fever, chills, headache, visual changes, sore throat, cough, chest pain, palpitations, shortness of breath, abdominal pain, nausea, vomiting, dysuria, constipation or diarrhea. Allergies Allergy/AdvReac Type Severity Reaction Status Date / Time No Known Allergies Allergy Verified 01/05/20 16:31 Home Medications Home Medications Medication Instructions Recorded Confirmed Type Lanrenae Solostar U-100 Insulin 34 unit SUBCUT BID 12/15/18 01/05/20 History amlodipine 10 mg PO QAM 12/15/18 01/05/20 History aspirin [Aspir-81] 81 mg PO QAM 12/15/18 01/05/20 History atorvastatin 40 mg PO QAM 12/15/18 01/05/20 History carvedilol [Coreg] 37.5 mg PO BID 12/15/18 01/05/20 History clopidogrel [Plavix] 75 mg PO QAM 12/15/18 01/05/20 History hydralazine 1.5 tabs PO TID 12/15/18 01/05/20 History cholecalciferol (vitamin D3) 100 mcg PO DAILY 01/05/20 01/05/20 History [Vitamin D3] furosemide 40 mg PO BID 01/05/20 01/05/20 History lisinopril 10 mg PO DAILY 01/05/20 01/05/20 History spironolactone 12.5 mg PO MOWEFR 01/05/20 01/05/20 History terazosin 5 mg PO DAILY 01/05/20 01/05/20 History Past Med/Surg History Medical History Acquired hallux valgus of right foot (Acute) BPH (benign prostatic hyperplasia) (Chronic) CAD (coronary artery disease) (Chronic) Callus (Acute) CKD (chronic kidney disease), stage III (Chronic) Diabetes mellitus with diabetic polyneuropathy (Acute) Diabetes mellitus, type II (Chronic) Hallux rigidus, left foot (Acute) Hallux rigidus, right foot (Acute) Hallux valgus (acquired), left foot (Acute) HLD (hyperlipidemia) (Chronic) HTN (hypertension) (Chronic) PAD (peripheral artery disease) (Chronic) History of multiple stenting procedures to lower extremities, most recently restenting and angioplasty of right popliteal artery in January 2017 at [facility] Skin ulcer of left great toe (Acute) Thoracic aortic aneurysm (Chronic) Aortic root and ascending aorta mildly enlarged, per October 2018 GENNA, measuring at 4.2 cm (no significant change from 2018) Family History Other Heart disease Social History Preferred Language: Albanian Communication Ability: Effective Material Stress Tester Required: No Beliefs That Will Affect Care: None marital status: Single Current Living Situation: Significant Other current occupational status: disabled Feels Safe at Home: Yes Smoking Status: Never smoker Second Hand Exposure: No ; Hx Alcohol Use: No Hx Substance Use: No Review of Systems Review of Systems: At least ten systems reviewed and negative except as noted in the HPI. Physical Exam Physical Exam: General Appearance: WD/WN, vitals as above, NAD, sitting up in bed, pleasant, conversing easily Head: normocephalic, atraumatic Eyes: normal inspection, PERRL, conjunctivae normal, anicteric sclerae ENT: external ear and nose normal, oropharynx normal Neck: trachea midline, no thyromegaly normal visual inspection Respiratory: normal respiratory effort, lungs clear to auscultation, no wheeze, rales, rhonchi. Normal insp/exp effort, no accessory muscle use Cardiovascular: regular rate, rhythm, no murmur, normal peripheral pulses. Vessels: no JVD or carotid bruit Chest: normal inspection of chest Abdomen/GI: normal bowel sounds, soft, nontender, no hepatosplenomegaly Extremities/Musculoskeletal: no cyanosis or clubbing, extremities motor strength 5/5 Neurologic: PERRL, EOMI, accommodation nl, no face palsy, no dysarthria, CN's II-XI intact bilaterally and moves all extremities Psychiatric: A+Ox3, euthymic affect Skin: no rashes, normal color, warm/dry Results & Data Results & Data ([facility]) Vital Signs (Past 12 Hours) Vital Signs Temp Pulse Resp BP Pulse Ox 01/05/20 17:00 62 20 108/65 96 01/05/20 16:50 61 24 94 01/05/20 16:40 58 L 17 98 01/05/20 16:30 63 17 98 01/05/20 16:20 60 20 97 01/05/20 16:10 61 15 98 01/05/20 16:00 61 16 114/60 99 01/05/20 15:50 59 L 24 99 01/05/20 15:40 63 16 99 01/05/20 15:31 99 01/05/20 15:22 36.9 C 64 20 110/64 100 Laboratory Results Short CBC 01/05/20 01/05/20 01/05/20 Range/Units 16:30 16:30 16:30 WBC 5.28 (4.8-10.8) K/uL RBC 3.42 L (4.7-6.1) M/uL Hgb 10.5 L (14.0-18.0) g/dL Hct 30.2 L (42-52) % MCV 88.3 (80-100) fL MCH 30.7 (25-34) pg MCHC 34.8 (32-36) g/dL RDW Std Deviation 44.6 (36.4-46.3) fL RDW Coeff of Natividad 13.9 (11.5-14.5) % Plt Count 188 (130-400) K/uL MPV 9.4 (7.4-10.4) fL Immature Gran % (Auto) 0.0 % Neut % (Auto) 58.9 % Lymph % (Auto) 30.1 % Glades % (Auto) 9.5 % Eos % (Auto) 1.1 % Baso % (Auto) 0.4 % Immature Gran # (Auto) 0.00 (0.00-0.02) K/uL Neut # (Auto) 3.11 (1.4-6.5) K/uL Lymph # (Auto) 1.59 (1.2-3.4) K/uL Glades # (Auto) 0.50 (0.11-0.59) K/uL Eos # (Auto) 0.06 (0-0.5) K/uL Baso # (Auto) 0.02 (0-0.2) K/uL PT 11.4 (9.0-12.0) Seconds INR 1.1 (0.9-1.1) APTT 23.9 (21.0-31.0) Seconds PTT Ratio 0.9 Sodium 137 (136-145) mmol/L Potassium 4.8 (3.5-5.1) mmol/L Chloride 109 H (98-107) mmol/L Carbon Dioxide 20 L (21-32) mmol/L Anion Gap 8.0 (3-11) BUN 57 H (7-18) mg/dl Creatinine 3.24 H (0.6-1.4) mg/dl Est Cr Clr Drug Dosing Not Reportable Est GFR ( Amer) 22.5 Est GFR (Non-Af Amer) 19.4 BUN/Creatinine Ratio 17.7 (10-20) Glucose 216 H (70-99) mg/dl Calcium 8.7 (8.5-10.1) mg/dl Phosphorus 2.7 (2.5-4.9) mg/dl Magnesium 2.2 (1.8-2.4) mg/dl Total Bilirubin 0.9 (0.2-1) mg/dl AST 16 (15-37) U/L ALT 34 (12-78) U/L Alkaline Phosphatase 87 (45-117) U/L Troponin I < 0.015 (0-0.045) ng/ml NT-Pro-B Natriuret Pep 139 (0-900) pg/ml Total Protein 7.4 (6.4-8.2) gm/dl Albumin 3.8 (3.4-5.0) gm/dl Globulin 3.6 (2.5-4.0) gm/dl Albumin/Globulin Ratio 1.1 (0.9-2) BMP 01/05/20 16:30 Sodium 137 Potassium 4.8 Chloride 109 H Carbon Dioxide 20 L BUN 57 H Creatinine 3.24 H Glucose 216 H Calcium 8.7 Cardiac Enzymes 01/05/20 Range/Units 16:30 Troponin I < 0.015 (0-0.045) ng/ml Liver Function 01/05/20 Range/Units 16:30 Total Bilirubin 0.9 (0.2-1) mg/dl AST 16 (15-37) U/L ALT 34 (12-78) U/L Alkaline Phosphatase 87 (45-117) U/L Albumin 3.8 (3.4-5.0) gm/dl Diagnostic Findings CXR: IMPRESSION: No active disease in the chest. Code Status & VTE Plan VTE Prophylaxis Plan VTE Prophylaxis will be ordered: Yes Supervising Physician Co-Signing Physician Notes I, Dr. Naga Ballesteros, have seen and examined the patient with physician behavioral health assistant and would like to comment that On exam: General: no acute distress Heart: regular rate Lungs: no wheezing, regular respiratory rate, on room air Abdomen: soft, nontender, positive bowel sounds Extremities: no edema Assessment and Plan -patient on diuretics at home with no evidence of pulmonary edema or pneumonia on lung imaging, is breathing on room air, shortness of breath symptoms that patient complains when he goes from sitting to standing positions may be due to home medications including diuretics -labs are positive for pre-renal acute kidney injury on chronic kidney disease, give IV fluids and send urine analysis to rule out urinary tract infection. Patient is afebrile -agree with other assessment and plans as documented by physician behavioral health assistant
[2020-01-05] MEDS ORDERED: POLYETHYLENE (MIRALAX) 17 GM PACK PO PRN (20:10)
[2020-01-05] MEDS ORDERED: CARBOHYDRATES FOR HYPOGLYCEMIA PO PRN (20:10)
[2020-01-05] MEDS ORDERED: GLUCAGON FOR INJ 1 MG VIAL SQ PRN (20:10)
[2020-01-05] MEDS ORDERED: GLUCOSE 40% GEL 15 GM TUBE PO PRN (20:10)
[2020-01-05] MEDS ORDERED: GLUCOSE 10 TABS/TUBE PO PRN (20:10)
[2020-01-05] MEDS ORDERED: ACETAMINOPHEN 325 MG TAB PO PRN (20:10)
[2020-01-05] MEDS ORDERED: SODIUM CHLORIDE 0.9% 1000ML 1,000 ML IV SCH (20:10)
[2020-01-05] MEDS ORDERED: DEXTROSE 50% 50 ML SYRINGE IV PRN (20:10)
[2020-01-05] MEDS: carvediloL 12.5 MG TAB PO SCH (20:55)
[2020-01-05] MEDS: INSULIN GLARGINE SOLOSTAR 100 UNITS/ML 3 ML PEN SC SCH (20:58)
[2020-01-05] MEDS: INSULIN ASPART 100 UNITS/ML 3 ML PEN SC SCH (20:58)
[2020-01-05] MEDS: HEPARIN SOD 5,000 UNIT/0.5 ML VIAL SQ SCH (21:04)
[2020-01-05 22:37] LABS: Appearance Urine Clear (Clear); Bilirubin Urine Negative (Negative); Blood Urine Negative (Negative); Color Urine Yellow; Glucose Urine UA Negative (Negative); Ketones Urine Negative (Negative); Leukocyte Esterase Urine Negative (Negative); Nitrite Urine Negative (Negative); Protein Urine Negative (Negative); Specific Gravity Urine 1.014 (1.000-1.030); Urobilinogen Urine Negative (Negative)
[2020-01-06] MEDS: HEPARIN SOD 5,000 UNIT/0.5 ML VIAL SQ SCH ×3 (05:11→14:27)
[2020-01-06 06:14] LABS: Basophils # (auto) 0.04 K/uL (0-0.2); Basophils % (auto) 0.6 %; Eosinophils # (auto) 0.11 K/uL (0-0.5); Eosinophils % (auto) 1.6 %; Hematocrit (blood only) 32.2 % (42-52); Hemoglobin 11.1 g/dL (14.0-18.0); Immature Granulocytes # (auto) 0.01 K/uL (0.00-0.02); Immature Granulocytes % (auto) 0.1 %; Lymphocytes # (auto) 2.66 K/uL (1.2-3.4); Lymphocytes % (auto) 38.1 %; Mean Corpuscular Hemoglobin 30.3 pg (25-34); Mean Corpuscular Hgb Conc 34.5 g/dL (32-36); Mean Platelet Volume 9.8 fL (7.4-10.4); Monocytes # (auto) 0.66 K/uL (0.11-0.59); Monocytes % (auto) 9.5 %; Neutrophils % (auto) 50.1 %; Platelet Count 211 K/uL (130-400); RDW Coefficient of Variation 13.7 % (11.5-14.5); RDW Standard Deviation 44.4 fL (36.4-46.3); Red Blood Count 3.66 M/uL (4.7-6.1); White Blood Count 6.98 K/uL (4.8-10.8)
[2020-01-06 06:31] LABS: BUN Creatinine Ratio 19.4 (10-20); Calcium 8.7 mg/dl (8.5-10.1); Est GFR (African American) 28.9; Est GFR (Non-African American) 24.9; Potassium 4.3 mmol/L (3.5-5.1)
--- NOTE | 2020-01-06 06:45 | Electrocardiogram Report ---
Test Reason : Blood Pressure : / mmHG Vent. Rate : 060 BPM Atrial Rate : 060 BPM P-R Int : 194 ms QRS Dur : 100 ms QT Int : 404 ms P-R-T Axes : 051 065 067 degrees QTc Int : 404 ms Normal sinus rhythm Normal ECG When compared with ECG of 15-DEC-2018 14:15, Nonspecific T wave abnormality no longer evident in Lateral leads Confirmed by Eric Rosenthal ([id number]) on 01/06/2020 6:45:25 AM Referred By: REFERRED SELF Confirmed By:Eric Rosenthal
[2020-01-06] MEDS ORDERED: SODIUM CHLORIDE 0.9% 1000ML 500 ML IV ONE (06:54)
[2020-01-06 07:35] LABS: Estimated Average Glucose 157 mg/dl; Hemoglobin A1C 7.1 % (4.5-5.6)
[2020-01-06] MEDS: INSULIN ASPART 100 UNITS/ML 3 ML PEN SC SCH ×2 (08:41→12:47)
[2020-01-06] MEDS: INSULIN GLARGINE SOLOSTAR 100 UNITS/ML 3 ML PEN SC SCH (08:42)
[2020-01-06] MEDS: carvediloL 12.5 MG TAB PO SCH (08:54)
[2020-01-06] MEDS ORDERED: CLOPIDOGREL BISULFATE 75 MG TAB PO SCH (09:00)
[2020-01-06] MEDS ORDERED: ATORVASTATIN 40 MG TAB PO SCH (09:00)
[2020-01-06] MEDS ORDERED: AMLODIPINE BESYLATE 5 MG TAB PO SCH (09:00)
[2020-01-06] MEDS ORDERED: CHOLECALCIFEROL 1,000 UNITS 25 MCG TAB PO SCH (09:00)
[2020-01-06] MEDS ORDERED: ASPIRIN 81 MG ECTAB PO SCH (09:00)
[2020-01-06 13:19] LABS: BUN Creatinine Ratio 18.3 (10-20); Calcium 8.3 mg/dl (8.5-10.1); Creatinine Clr Calc Pharmacy 32.3 ml/min; Est GFR (African American) 29.3; Est GFR (Non-African American) 25.3; Potassium 4.4 mmol/L (3.5-5.1)
--- NOTE | 2020-01-06 13:48 | Hospitalist Progress Note ---
Date of Service January 06, 2020 Assessment & Plan (1) Syncope: Dyspnea on exertion (when changing from sitting to standing position) -This is a 64-year-old male with a PMH of nonobstructive CAD, thoracic aortic aneurysm, HTN, DM II, CKD III, PAD with h/o multiple BLE stents (most recently with stent to L proximal superficial femoral artery in August 2019) and other medical problems listed below who presents with worsening lightheadedness and syncopal event -with recent ectopy noted on outpatient EKG. Zio patch results pending -no acute telemetry events, his symptoms appears to be related to pre-renal acute kidney injury as described below (2) Acute kidney injury superimposed on chronic kidney disease: JEROME superimposed on CKD III: -patient on diuretics at home, recent 12/20/2019 echocardiogram with Ejection fraction of 60 to 64% , with recent CT A chest in 12/16/2019 with no evidence of pulmonary embolism who presents to hospital on 01/05/2020 with complaints of worsening lightheadedness and syncopal episode and also shortness of breath symptoms that patient complains when he goes from sitting to standing positions may be due to home medications including diuretics. has been on room air. no hypoxia. admission Chest X ray with no evidence for pneumonia or pulmonary edema. monitored on telemetry and no acute events -01/05/2020 admission labs are positive for pre-renal acute kidney injury on chronic kidney disease with creatinine 3.24, no urinary tract infection -no acute cardiac events on telemetry -with IV fluids and by holding his home dose diuretics, the creatinine improved to 2.63 by 01/06/2020 AM labs. after further IV fluids of 500 cc, the afternoon labs 01/06/2020 labs with creatinine of 2.60. will expect that patient's creatinine to trend towards the low 2 ranges when off excessive furosemide diuretic -recommend that on discharge patient cut down home dose furosemide from 40 mg twice a day to 40 mg once a day. Patient can start the furosemide 40 mg once a day on 01/07/2020. discharge medication of furosemide 40 mg daily sent electronically to [facility] [address] [place] [address] [place] [address] -on hospital discharge, patient may continue spironolactone 12.5 mg every Thursday, every Thursday, and georgiana Thursday. patient may resume terazosin 5 mg daily and lisinopril 10 mg daily starting on 01/07/2020 patient should go to clinic scheduled appointments and have follow up renal function labs (BUN and creatinine) and blood pressures assessed as outpatient 01/10/2020 3:00 PM Provider Altagracia Park PA-C Department Cardiology, [facility] 01/12/2020 11:20 AM Provider Chele Cullen MD Department Family Practice [facility] 02/07/2020 8:00 AM Provider Barbara Larios MD Department Urology, [facility] 02/08/2020 3:30 PM Provider Chele Alvarenga PA-C Department Cardiology, [facility] (3) HTN (hypertension): HTN (hypertension): -management as above (4) BPH (benign prostatic hyperplasia): -can continue outpatient terazosin, he has outpatient followup with urology clinic (5) CAD (coronary artery disease): Nonobstructive CAD on 2014 diagnostic cardiac cath. Continue medical management with statin, aspirin, beta-lotus (6) Diabetes mellitus, type II: Diabetes Mellitus Type 2 with fci current use of insulin -HbA1c 7.1 -on insulin (7) Thoracic aortic aneurysm: H/o stable thoracic aortic aneurysm measuring 4.8 cm at aortic root and ascending aorta on 2D echo from October 2018 (stable with 2019 TTE from a few weeks prior) (8) PAD (peripheral artery disease): History of multiple vascular interventions at [facility] by Dr. Olsen from 2013- 2016, most recently with stent to L proximal superficial femoral artery in August 2019 -Continue aspirin, plavix, statin Admission and Anticipated Discharge Date Admission Date: January 05, 2020 Subjective No acute events on telemetry. Patient continues to be breathing on room air. No shortness of breath with the IV fluids. he has been able to ambulate and denies dizziness or shortness of breath with exertions. no chest pain. no palpitations. discharge plans discussed at length Review of Systems Review of Systems: All systems reviewed & are unremarkable except as noted in Subjective Physical Exam Constitutional: comfortable Eyes: PERRL, conjunctivae normal, anicteric sclerae EOM intact bilaterally ENMT: external ear and nose normal, oropharynx normal Neck: normal visual inspection Respiratory: normal respiratory effort, lungs clear to auscultation Cardiovascular: Rate/Rhythm: regular rate and regular rhythm Gastrointestinal (Abdomen): normal bowel sounds, soft, nontender, no hepatosplenomegaly Neurologic: PERRL, EOMI, accommodation nl, no face palsy, no dysarthria CN's II-XI intact bilaterally Psychiatric: A+Ox3, euthymic affect Results & Data Results & Data ([facility]) Vital Signs (Past 12 Hours) Vital Signs Temp Pulse Pulse Resp BP Pulse Ox 01/06/20 11:46 62 01/06/20 11:14 37 C 71 16 113/63 95 01/06/20 07:16 36.5 C 60 16 132/66 97 01/06/20 05:25 62 01/06/20 03:24 56 L 99/59 L 01/06/20 03:23 54 L 114/64 01/06/20 03:22 36.7 C 57 L 17 119/65 98
--- NOTE | 2020-01-06 14:03 | Discharge Summary ---
Date of Service January 06, 2020 Admission HPI Per Admitting Provider This is a 64-year-old male with a PMH of nonobstructive CAD, thoracic aortic aneurysm, HTN, DM II, CKD III, PAD with h/o multiple BLE stents (most recently with stent to L proximal superficial femoral artery in August 2019) and other medical problems listed below who presents with worsening lightheadedness and syncopal event earlier today. Patient endorses worsening lightheadedness and dyspnea on exertion for the past 6 weeks. Was walking around the store today when he felt lightheaded and like he might pass out. Dropped to his knees and passed out before coming to with his by his side. Denies any head trauma. Denies any preceding visual changes or chest pain. Has noticed his blood pressure has been lower than usual for the past few weeks. Normally SBP is ~140 and recent BPs have been 100/60 with associated lightheadedness with postural changes. Was prescribed lisinopril 10mg in September. In regards to dyspnea on exertion, saw JESSIE Alvarenga earlier this month and had EKG demonstrating 6 capturing/documenting symptomatic sensed ventricular ectopy. Zio patch monitor has been worn and patient is awaiting results. TTE from earlier this December shows preserved EF of 60% and stable mildly enlarged (4.0 cm) aortic root and ascending aorta (4.2 cm). Echo results unchanged from 10/28/2018. Currently, patient is feeling well at rest except for positional lightheadedness. Denies fever, chills, headache, visual changes, sore throat, cough, chest pain, palpitations, shortness of breath, abdominal pain, nausea, vomiting, dysuria, constipation or diarrhea. 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 acute kidney injury on chronic kidney disease stage 3 Discharge Exam Constitutional comfortable Eyes PERRL, conjunctivae normal, anicteric sclerae EOM intact bilaterally ENMT external ear and nose normal, oropharynx normal Neck normal visual inspection Respiratory normal respiratory effort, lungs clear to auscultation Cardiovascular Rate/Rhythm: regular rate and regular rhythm Gastrointestinal (Abdomen) normal bowel sounds, soft, nontender, no hepatosplenomegaly Neurologic PERRL, EOMI, accommodation nl, no face palsy, no dysarthria CN's II-XI intact bilaterally Psychiatric A+Ox3, euthymic affect Discharge Data Allergies Allergy/AdvReac Type Severity Reaction Status Date / Time No Known Allergies Allergy Verified 01/05/20 16:31 Consultations 01/05/20 17:44 ED Decision to Admit Stat Hospital Course (1) Syncope: Dyspnea on exertion (when changing from sitting to standing position) -This is a 64-year-old male with a PMH of nonobstructive CAD, thoracic aortic aneurysm, HTN, DM II, CKD III, PAD with h/o multiple BLE stents (most recently with stent to L proximal superficial femoral artery in August 2019) and other medical problems listed below who presents with worsening lightheadedness and syncopal event -with recent ectopy noted on outpatient EKG. Zio patch results pending -no acute telemetry events, his symptoms appears to be related to pre-renal acute kidney injury as described below (2) Acute kidney injury superimposed on chronic kidney disease: JEROME superimposed on CKD III: -patient on diuretics at home, recent 12/20/2019 echocardiogram with Ejection fraction of 60 to 64% , with recent CT A chest in 12/16/2019 with no evidence of pulmonary embolism who presents to hospital on 01/05/2020 with complaints of worsening lightheadedness and syncopal episode and also shortness of breath symptoms that patient complains when he goes from sitting to standing positions may be due to home medications including diuretics. has been on room air. no hypoxia. admission Chest X ray with no evidence for pneumonia or pulmonary edema. monitored on telemetry and no acute events -01/05/2020 admission labs are positive for pre-renal acute kidney injury on chronic kidney disease with creatinine 3.24, no urinary tract infection -no acute cardiac events on telemetry -with IV fluids and by holding his home dose diuretics, the creatinine improved to 2.63 by 01/06/2020 AM labs. after further IV fluids of 500 cc, the afternoon labs 01/06/2020 labs with creatinine of 2.60. will expect that patient's creatinine to trend towards the low 2 ranges when off excessive furosemide diuretic -recommend that on discharge patient cut down home dose furosemide from 40 mg twice a day to 40 mg once a day. Patient can start the furosemide 40 mg once a day on 01/07/2020. discharge medication of furosemide 40 mg daily sent electronically to [facility] [address] [place] [id number] -on hospital discharge, patient may continue spironolactone 12.5 mg every Thursday, every Thursday, and georgiana Thursday. patient may resume terazosin 5 mg daily and lisinopril 10 mg daily starting on 01/07/2020 patient should go to clinic scheduled appointments and have follow up renal function labs (BUN and creatinine) and blood pressures assessed as outpatient 01/10/2020 3:00 PM Provider Altagracia Park PA-C Department Cardiology, [facility] 01/12/2020 11:20 AM Provider Chele Cullen MD Department Family Practice [facility] 02/07/2020 8:00 AM Provider Barbara Larios MD Department Urology, [facility] 02/08/2020 3:30 PM Provider Chele Alvarenga PA-C Department Cardiology, [facility] (3) HTN (hypertension): HTN (hypertension): -management as above (4) BPH (benign prostatic hyperplasia): -can continue outpatient terazosin, he has outpatient followup with urology clinic (5) CAD (coronary artery disease): Nonobstructive CAD on 2014 diagnostic cardiac cath. 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 by Dr. 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 acute kidney injury on chronic kidney disease stage 3 Condition on Discharge: Good Activity: Resume your previous activity Non-emergency contact: Primary Care Provider and Contract Negotiator Call non-emergency contact if: you have any medication questions Follow-up/Referrals: Chele Alvarenga [Physician Asset Management Lead] - 02/08/20 3:30 pm (02/08/2020 3:30 PM Provider Chele Alvarenga PA-C Department Cardiology, [facility] ) Chele Cullen MD [Primary Care Provider] - 01/12/20 11:20 am (01/12/2020 11:20 AM Provider Chele Cullen MD Department Family Practice [facility] ) Diet: Carb Consistent or DM2 and Heart Healthy Addtl Attending Provider Instructions: -patient on diuretics at home, recent 12/20/2019 echocardiogram with Ejection fraction of 60 to 64% , with recent CT A chest in 12/16/2019 with no evidence of pulmonary embolism who presents to hospital on 01/05/2020 with complaints of worsening lightheadedness and syncopal episode and also shortness of breath symptoms that patient complains when he goes from sitting to standing positions may be due to home medications including diuretics. has been on room air. no hypoxia. admission Chest X ray with no evidence for pneumonia or pulmonary edema. monitored on telemetry and no acute events -01/05/2020 admission labs are positive for pre-renal acute kidney injury on chronic kidney disease with creatinine 3.24, no urinary tract infection -no acute cardiac events on telemetry -with IV fluids and by holding his home dose diuretics, the creatinine improved to 2.63 by 01/06/2020 AM labs. after further IV fluids of 500 cc, the afternoon labs 01/06/2020 labs with creatinine of 2.60. will expect that patient's creatinine to trend towards the low 2 ranges when off excessive furosemide diuretic -recommend that on discharge patient cut down home dose furosemide from 40 mg twice a day to 40 mg once a day. Patient can start the furosemide 40 mg once a day on 01/07/2020. discharge medication of furosemide 40 mg daily sent electronically to [facility] [place] [id number] -on hospital discharge, patient may continue spironolactone 12.5 mg every Thursday, every Thursday, and georgiana Thursday. patient may resume terazosin 5 mg daily and lisinopril 10 mg daily starting on 01/07/2020 patient should go to clinic scheduled appointments and have follow up renal function labs (BUN and creatinine) and blood pressures assessed as outpatient 01/10/2020 3:00 PM Provider Altagracia Park PA-C Department Cardiology, [facility] 01/12/2020 11:20 AM Provider Chele Cullen MD Department Family Practice [facility] 02/07/2020 8:00 AM Provider Barbara Larios MD Department Urology, [facility] 02/08/2020 3:30 PM Provider Chele Alvarenga PA-C Department Cardiology, [facility] Pending Studies at Discharge: No Stand-Alone Forms: [facility] [place] [employer], Smoking Cessation Medications and DC Order Prescriptions: New furosemide 40 mg tablet 40 mg PO DAILY 30 Days Qty: 30 RF: 0 Continued spironolactone 25 mg tablet 12.5 mg PO MOWEFR RF: 0 cholecalciferol (vitamin D3) [Vitamin D3] 25 mcg (1,000 unit) Capsule 100 mcg PO DAILY RF: 0 terazosin 5 mg capsule 5 mg PO DAILY RF: 0 lisinopril 10 mg tablet 10 mg PO DAILY RF: 0 atorvastatin 40 mg Tablet 40 mg PO QAM RF: 0 carvedilol [Coreg] 25 mg Tablet 37.5 mg PO BID RF: 0 clopidogrel [Plavix] 75 mg Tablet 75 mg PO QAM RF: 0 aspirin [Aspir-81] 81 mg Tablet,Delayed Release (Dr/Ec) 81 mg PO QAM RF: 0 amlodipine 10 mg Tablet 10 mg PO QAM RF: 0 hydralazine 50 mg Tablet 1.5 tabs PO TID RF: 0 Lantus Solostar U-100 Insulin 100 unit/mL (3 mL) Insulin Pen 34 unit SUBCUT BID RF: 0 Discontinued furosemide 40 mg tablet 40 mg PO BID RF: 0 Discharge Orders: Discharge Order (Routine); Ordered 01/06/20 Ordered By: Naga Ballesteros Admission Data Admit Date/Time: 01/05/20 18:38 Attending Provider: Naga Ballesteros Admit Provider: Naga Ballesteros Primary Care Provider: Chele Cullen Other Providers: Naga Ballesteros
== END 2020-01-06 14:55 | disposition home or self-care (01) | DRG 312 ==
LOC: ED 15:20 → 2N 18:38
DX: Z79.4 Long term (current) use of insulin; N17.9 Acute kidney failure, unspecified; E11.22 Type 2 diabetes mellitus with diabetic chronic kidney disease; N40.0 Benign prostatic hyperplasia without lower urinary tract symptoms; N18.3 Chronic kidney disease, stage 3 (moderate); I25.10 Atherosclerotic heart disease of native coronary artery without angina pectoris; R55 Syncope and collapse; I73.9 Peripheral vascular disease, unspecified

== ENCOUNTER 2023-10-20 12:26 | Inpatient (IN) ==
[2023-10-20 13:07] LABS: Basophils # (auto) 0.03 K/uL (0.00-0.20); Basophils % (auto) 0.4 %; Eosinophils # (auto) 0.12 K/uL (0.00-0.50); Eosinophils % (auto) 1.5 %; Hematocrit (blood only) 30.6 % (42.0-52.0); Hemoglobin 10.3 g/dl (14.0-18.0); Immature Granulocytes # (auto) 0.03 K/uL (0.01-0.20); Immature Granulocytes % (auto) 0.4 %; Lymphocytes # (auto) 1.51 K/uL (1.20-3.40); Lymphocytes % (auto) 18.3 %; Mean Corpuscular Hgb Conc 33.7 g/dL (32.0-36.0); Mean Corpuscular Volume 89.2 fL (80.0-100.0); Mean Platelet Volume 10.3 fL (9.4-12.4); Monocytes # (auto) 0.73 K/uL (0.11-0.59); Monocytes % (auto) 8.9 %; Neutrophils # (auto) 5.81 K/uL (1.40-6.50); Neutrophils % (auto) 70.5 %; Platelet Count 194 K/uL (130-400); RDW Coefficient of Variation 13.7 % (11.5-14.5); RDW Standard Deviation 44.4 fL (36.4-46.3); Red Blood Count 3.43 M/uL (4.70-6.10); White Blood Count 8.23 K/ul (4.8-10.8)
[2023-10-20 13:24] LABS: Albumin Level 4.2 gm/dl (3.4-5.0); Bilirubin,Total 0.6 mg/dl (0.2-1.0); Calcium 9.3 mg/dl (8.6-10.3); Potassium 4.3 mmol/L (3.5-5.1)
[2023-10-20 13:30] LABS: Albumin Globulin Ratio 1.6 (0.9-2); BUN Creatinine Ratio 15.4 (10-20); Creatinine Clr Calc Pharmacy 21.2 ml/min; Est GFR (African American) 18.2 ml/min; Est GFR (Non-African American) 15.7 ml/min; Globulin 2.7 gm/dl (2.5-4.0); Total Protein 6.9 gm/dl (6.0-8.3)
[2023-10-20 13:32] LABS: Partial Thromboplastin Ratio 0.9; Partial Thromboplastin Time 26 Seconds (21-31); Prothrombin Time 11.2 Seconds (9.0-12.0)
[2023-10-20 13:40] LABS: Troponin I High Sensitivity 537.5 pg/ml (0-20)
--- NOTE | 2023-10-20 13:50 | XRay Report ---
XR chest 1V not portable HISTORY: 68 years-old Male Chest pain, nonspecific COMPARISON: 08/05/2022 TECHNIQUE: PA view of the chest FINDINGS: Cardiac mediastinal and hilar silhouettes are within normal limits. No pneumothorax, pleural effusion or airspace consolidation. Bones appear grossly intact. Spondylitic spurring of the spine. IMPRESSION: No acute process. ACT 112: Negative or not required by law. The above report was generated using voice recognition software. It may contain grammatical, syntax o r spelling errors. Electronically signed by: Danie Zamora M.D. 10/20/2023 1:49 PM
--- NOTE | 2023-10-20 13:57 | Emergency Department Note ---
Impression & Plan Acute non-ST elevation myocardial infarction (NSTEMI), JEROME (acute kidney injury), Elevated troponin I level ED Provider Note NAME: PATRICIA CALVILLO AGE: 68 SEX: M : 1955 ARRIVES VIA: Walk-In INFORMANT: Patient, ED PROVIDER(S): Deric Tovar DO CHIEF COMPLAINT: Chest pain HPI: The patient is a 68-year-old male who presented to the emergency department for evaluation of chest pain. Patient has a history of renal insufficiency. He is scheduled for cardiac catheterization under special circumstances because of his renal insufficiency. He had a cath 5 years ago under similar conditions. He started having chest discomfort. He recently came back from [place]. The patient started noticing chest discomfort over the last few days. He notices it worse when he lays flat. At this time the patient denies having any chest pain or difficulty breathing. He denies having any leg swelling. The patient called his primary data analytics architect office and was told to come to the emergency department. The patient states he has been compliant with his outpatient medications. ROS: See above HPI for pertinent positives & negatives. A total of 10 systems reviewed and were otherwise negative. PAST MEDICAL HISTORY: See Below PAST SURGICAL HISTORY: See Below FAMILY HISTORY: See Below SOCIAL HISTORY: See Below HOME MEDICATIONS: See Below ALLERGIES: See Below VITALS: See Below PHYSICAL EXAMINATION: GENERAL: Patient is awake alert in no acute distress patient is resting comfortably and showing no signs of anxiety EYES: The conjunctivae are clear. The pupils are round and reactive. EARS, NOSE, MOUTH AND THROAT: The nose is without any evidence of any deformity. NECK: The neck is nontender and supple. RESPIRATORY: Normal respiratory effort is noted there is no evidence of wheezing rhonchi or rales CARDIOVASCULAR: Regular rate and rhythm noted there no murmurs rubs or gallops normal S1 normal S2. GASTROINTESTINAL: The abdomen is soft. Abdomen is nontender. MUSCULOSKELETAL/EXTREMITIES: There is no evidence of gross deformity full range of motion is noted in the hips and shoulders. SKIN: There is no obvious evidence of any rash. There are no petechiae, pallor or cyanosis noted. NEUROLOGIC: Patient is awake alert and oriented x3. Gait was steady. MEDICAL DECISION MAKING: The patient is a 68-year-old male who is scheduled for cardiac catheterization in [place] who presented to the emergency department for chest pain. The patient has been having chest pain when he lies flat. He has been noticing it overnight but also some shortness of breath with exertion. The patient initially did not admit to shortness of breath with exertion. The patient was found to have an abnormal EKG. He was brought directly back to a room. I discussed the patient's laboratory and radiographic studies with him. His troponin was elevated initially. A second troponin showed a slight elevation from the first as well. He was treated with aspirin as well as heparin protocol. He was pain-free while in the emergency department. I discussed his condition with the on-call [facility] data analytics architect. He was evaluated in the emergency department by the [facility] cardiology group. I also discussed his condition with the on-call [facility] hospitalist. He was also treated with IV fluids for an elevation in his creatinine compared to baseline. The patient's vital signs are reassuring. Triage Nursing notes reviewed. Prior medical records reviewed Vital Signs: reviewed and remarkable for no significant abnormalities Differential diagnosis: Cardiac ischemia, aortic dissection, pulmonary embolism, pneumothorax, pneumonia, pericarditis, myocarditis, esophageal rupture, GERD, cholecystitis, pancreatitis, musculoskeletal, as well as other pathologies. ER treatment provided: See below Diagnostics interpreted by me: ECG: EKG was obtained in the emergency department. My interpretation is sinus rhythm at 77 bpm. PVCs were noted. There were also PACs noted. ST depressions with T wave versions were noted in the lateral leads. LVH was suggested by voltage criteria. This was compared to a tracing from August 05, 2022. The ST segment abnormalities were present but appear increased compared to the previous tracing. Otherwise no changes were noted. Cardiac Monitoring: An order was placed for continuous cardiac monitoring. The monitor shows a rate of 73 bpm with sinus rhythm. Laboratory studies: As stated above and show below. Imaging studies: See below. Radiographic imaging was reviewed by myself Consultation(s): I discussed this case with Dr. Bucio who is on-call for the [facility] cardiology group. I discussed this case with Dr. Gaffney who is on-call for the [facility] hospitalist group. ED COURSE: Procedures: none Critical Care: I have personally spent greater than 45 minutes of critical care time in the direct management of this patient. This includes bedside care, interpretation of diagnostic studies, and testing, discussion with consultants, patient, and family members, and other required patient management activities. This 45 minutes is in excess of all separately billable procedures. Past Med/Surg History Medical History (Updated 10/20/23 @ 15:48 by Ines Gaffney DO) CKD (chronic kidney disease), stage III Femoro-popliteal artery disease with revascularization 01/19/2023[place] [place] Amputation toe CKD (chronic kidney disease) stage 4, GFR 15-29 ml/min Hallux rigidus, left foot Hallux rigidus, right foot Diabetes mellitus with diabetic polyneuropathy Callus Acquired hallux valgus of right foot Hallux valgus (acquired), left foot Skin ulcer of left great toe HLD (hyperlipidemia) CAD (coronary artery disease) BPH (benign prostatic hyperplasia) Thoracic aortic aneurysm Aortic root and ascending aorta mildly enlarged, per October 2018 [facility], measuring at 4.2 cm (no significant change from 2018) PAD (peripheral artery disease) History of multiple stenting procedures to lower extremities, most recently restenting and angioplasty of right popliteal artery in January 2017 at [facility] [place] Diabetes mellitus, type II HTN (hypertension) Surgical History (Updated 10/20/23 @ 15:47 by Ines Gaffney DO) S/P rotator cuff repair Family History (Updated 10/20/23 @ 15:47 by Ines Gaffney DO) Mother Heart disease Social History Smoking Status: Never smoker Second Hand Exposure: No; Do You Dip or Chew Tobacco: No; Hx Alcohol Use: No Hx Substance Use: No Preferred Language: Cypriot Communication Ability: Effective Accounting Professional Required: No Beliefs That Will Affect Care: None marital status: Single Current Living Situation: Significant Other current occupational status: disabled Feels Safe at Home: Yes Assistive Devices: None Allergies Allergies Allergy/AdvReac Type Severity Reaction Status Date / Time No Known Allergies Allergy Verified 10/20/23 14:09 Home Meds Home Medications Medication Instructions Recorded Confirmed amlodipine 10 mg tablet 10 mg PO QAM 12/15/18 10/20/23 aspirin 81 mg tablet,delayed 81 mg PO QAM 12/15/18 10/20/23 release (Aspir-) atorvastatin 40 mg tablet 40 mg PO QAM 12/15/18 10/20/23 carvedilol 25 mg tablet (Coreg) 37.5 mg PO BID 12/15/18 10/20/23 clopidogrel 75 mg tablet (Plavix) 75 mg PO QAM 12/15/18 10/20/23 hydralazine 50 mg tablet 1.5 tabs PO TID 12/15/18 10/20/23 insulin glargine 100 unit/mL (3 34 unit subcut [facility] 12/15/18 10/20/23 mL) subcutaneous pen (Lantus Solostar U-100 Insulin) cholecalciferol (vitamin D3) 25 100 mcg PO DAILY 01/05/20 10/20/23 mcg (1,000 unit) capsule (Vitamin D3) lisinopril 10 mg tablet 10 mg PO [facility] 01/05/20 10/20/23 spironolactone 25 mg tablet 12.5 mg PO [facility] 01/05/20 10/20/23 terazosin 5 mg capsule 5 mg PO 01/05/20 10/20/23 allopurinol 100 mg tablet 200 mg PO [facility] 10/20/23 10/20/23 calcitriol 0.25 mcg capsule 0.25 mcg PO [facility] 10/20/23 10/20/23 furosemide 40 mg tablet 60 mg PO BID 10/20/23 10/20/23 gabapentin 100 mg capsule 100 mg PO TID 10/20/23 10/20/23 isosorbide mononitrate 60 mg 60 mg PO 10/20/23 10/20/23 tablet,extended release 24 hr pantoprazole 40 mg tablet,delayed 40 mg PO [facility] 10/20/23 10/20/23 release Results & Data (ED) Vital Signs Vital Signs - 24 hr 10/20/23 12:27 10/20/23 13:46 10/20/23 14:22 Temperature 36.6 C Temperature Source Temporal Artery Scan Pulse Rate 76 Pulse Rate [Apical] 71 Respiratory Rate 18 16 Respiratory Effort / Characteristics Non-Labored Spontaneous Respiratory Depth Normal Respiratory Pattern Regular Blood Pressure 146/65 H Blood Pressure [Left Arm] 140/68 Blood Pressure Mean 92 Blood Pressure Mean [Left Arm] 92 Blood Pressure Position Sitting Pulse Oximetry 98 98 95 Oxygen Delivery Method Room Air Room Air Room Air Sepsis Recent Fever Within 48 Hours No Sepsis New/Unexplained Change in Mental Status N/A Sepsis Action Taken by Nursing No Action Required 10/20/23 15:02 Temperature Temperature Source Pulse Rate 73 Pulse Rate [Apical] Respiratory Rate Respiratory Effort / Characteristics Respiratory Depth Respiratory Pattern Blood Pressure Blood Pressure [Left Arm] Blood Pressure Mean Blood Pressure Mean [Left Arm] Blood Pressure Position Pulse Oximetry Oxygen Delivery Method Sepsis Recent Fever Within 48 Hours Sepsis New/Unexplained Change in Mental Status Sepsis Action Taken by [facility] Medications Current Medication List: was personally reviewed by me Laboratory Data Attestation: I reviewed the patient's lab results. 10/20/23 12:34 10/20/23 12:34 Lab Results 10/20/23 10/20/23 Range/Units 12:34 14:20 WBC 8.23 (4.8-10.8) K/ul RBC 3.43 L (4.70-6.10) M/uL Hgb 10.3 L (14.0-18.0) g/dl Hct 30.6 L (42.0-52.0) % MCV 89.2 (80.0-100.0) fL MCH 30.0 (25.0-34.0) pg MCHC 33.7 (32.0-36.0) g/dL RDW Std Deviation 44.4 (36.4-46.3) fL RDW Coeff of Natividad 13.7 (11.5-14.5) % Plt Count 194 (130-400) K/uL MPV 10.3 (9.4-12.4) fL Immature Gran % (Auto) 0.4 % Neut % (Auto) 70.5 % Lymph % (Auto) 18.3 % [place] % (Auto) 8.9 % Eos % (Auto) 1.5 % Baso % (Auto) 0.4 % Neut # (Auto) 5.81 (1.40-6.50) K/uL Lymph # (Auto) 1.51 (1.20-3.40) K/uL [place] # (Auto) 0.73 H (0.11-0.59) K/uL Eos # (Auto) 0.12 (0.00-0.50) K/uL Baso # (Auto) 0.03 (0.00-0.20) K/uL Immature Gran # (Auto) 0.03 (0.01-0.20) K/uL PT 11.2 (9.0-12.0) Seconds INR 1.0 (0.9-1.1) APTT 26 (21-31) Seconds PTT Ratio 0.9 Sodium 137 (136-145) mmol/L Potassium 4.3 (3.5-5.1) mmol/L Chloride 106 (98-107) mmol/L Carbon Dioxide 19 L (21-32) mmol/L Anion Gap 12 H (3-11) BUN 58 H (6-23) mg/dl Creatinine 3.77 H (0.6-1.4) mg/dl Est Cr Clr Drug Dosing 21.2 ml/min Est GFR ( Amer) 18.2 ml/min Est GFR (Non-Af Amer) 15.7 ml/min BUN/Creatinine Ratio 15.4 (10-20) Glucose 253 H (70-99(Fasting)) mg/dl Calcium 9.3 (8.6-10.3) mg/dl Total Bilirubin 0.6 (0.2-1.0) mg/dl AST 14 (13-39) U/L ALT 11 (7-52) U/L Alkaline Phosphatase 110 H (34-104) U/L Troponin I High Sens 537.5 H* 709.6 H* D (0-20) pg/ml Total Protein 6.9 (6.0-8.3) gm/dl Albumin 4.2 (3.4-5.0) gm/dl Globulin 2.7 (2.5-4.0) gm/dl Albumin/Globulin Ratio 1.6 (0.9-2) Administered Medications Heparin Sodium/Dextrose (Heparin Sodium/Dextrose) 25,000 units in 500 mls @ 20 mls/hr IV .Q24H [facility]; Protocol Stop: 11/19/23 13:59 Last Admin: 10/20/23 15:31 Dose: 1,000 units/hr, 20 mls/hr Documented By: FOREIGN Co-signed By: CASSIE Discontinued Medications Aspirin (Aspirin Chew 324 Mg) 324 mg PO NOW STA Stop: 10/20/23 13:43 Last Admin: 10/20/23 14:10 Dose: 324 mg Documented By: CASSIE Heparin Sodium (Porcine) (Heparin Sod (Porcine) 1000 Unit/Ml) 4,000 units IV NOW ONE Stop: 10/20/23 15:31 Last Admin: 10/20/23 15:31 Dose: 4,000 units Documented By: FOREIGN Co-signed By: CASSIE Heparin Sodium/Dextrose (Heparin Iv Adult Wt-Based Low-Dose W/ Initial Bolus Protocol) 1 each IV NOW STA; Protocol Stop: 10/20/23 13:43 Last Admin: 10/20/23 15:56 Dose: 1 each Documented By: FOREIGN Sodium Chloride (Nss) 500 mls @ 999 mls/hr IV .Q31M ONE Stop: 10/20/23 15:17 Last Infusion: 10/20/23 16:12 Dose: Infused Documented By: Admin: 10/20/23 15:32 Dose: 999 mls/hr Documented By: FOREIGN Nitroglycerin (Nitroglycerin 2% Ointment 30gm Tube) Confirm Administered Dose 18 inch EXT .STK-MED ONE Stop: 10/20/23 16:43 Last Admin: 10/20/23 16:45 Dose: 18 inch Documented By: GIAN Imaging Data Attestation: I personally reviewed and interpreted this imaging study as follows: My Impression: 1 view chest x-ray was obtained in the emergency department. My interpretation is no free air or definite infiltrate, final report below for Radiologist's Impression: Chest X-Ray 10/20/23 12:33 XR chest 1V not portable HISTORY: 68 years-old Male Chest pain, nonspecific COMPARISON: 08/05/2022 TECHNIQUE: PA view of the chest FINDINGS: Cardiac mediastinal and hilar silhouettes are within normal limits. No pneumothorax, pleural effusion or airspace consolidation. Bones appear grossly intact. Spondylitic spurring of the spine. IMPRESSION: No acute process. ACT 112: Negative or not required by law. The above report was generated using voice recognition software. It may contain grammatical, syntax or spelling errors. Electronically signed by: Danie Zamora M.D. 10/20/2023 1:49 PM Discharge Plan Visit Data Chief Complaint: Referred by Doctor Stated Complaint: REF BY DOC ED Provider: Deric Tovar Discharge Problem: Acute non-ST elevation myocardial infarction (NSTEMI), JEROME (acute kidney injury), Elevated troponin I level Patient Disposition: Being Evaluated by Hospitalist Forms Stand Alone Forms: My [facility], Important Visit Information Prescriptions Prescriptions: No Action spironolactone 25 mg tablet 12.5 mg PO QAM cholecalciferol (vitamin D3) [Vitamin D3] 25 mcg (1,000 unit) Capsule 100 mcg PO DAILY Rx Instructions: Per pt: "If I remember." terazosin 5 mg capsule 5 mg PO HS lisinopril 10 mg tablet 10 mg PO QAM atorvastatin 40 mg Tablet 40 mg PO QAM carvedilol [Coreg] 25 mg Tablet 37.5 mg PO BID clopidogrel [Plavix] 75 mg Tablet 75 mg PO QAM aspirin [Aspir-81] 81 mg Tablet,Delayed Release (Dr/Ec) 81 mg PO QAM amlodipine 10 mg Tablet 10 mg PO QAM hydralazine 50 mg Tablet 1.5 tabs PO TID insulin glargine [Lantus Solostar U-100 Insulin] 100 unit/mL (3 mL) Insulin Pen 34 unit SUBCUT QAM Rx Instructions: Patient states he is on a sliding scale. He takes between 25 and 44 units. furosemide 40 mg tablet 60 mg PO BID allopurinol 100 mg tablet 200 mg PO QAM isosorbide mononitrate 60 mg tablet extended release 24 hr 60 mg PO HS pantoprazole 40 mg tablet,delayed release (DR/EC) 40 mg PO QAM gabapentin 100 mg capsule 100 mg PO TID calcitriol 0.25 mcg capsule 0.25 mcg PO QAM Referrals Referrals: Chele Cullen MD [Outside Practitioners] -
[2023-10-20] MEDS ORDERED: HEPARIN SOD (PORCINE) 1000 UNIT/ML IV ONE (13:58)
[2023-10-20] MEDS: ASPIRIN CHEW 324 MG PO STA (14:10)
--- NOTE | 2023-10-20 15:28 | Cardiology Consultation ---
Date of Consultation October 20, 2023 Assessment & Plan (1) Acute non-ST elevation myocardial infarction (NSTEMI): (2) CKD (chronic kidney disease) stage 4, GFR 15-29 ml/min: The patient describes recent progressive symptoms of debilitating fatigue and shortness of breath with exertion. He has been followed closely in outpatient cardiology clinic and is tentatively scheduled for invasive coronary angiography to be performed at [facility] tomorrow 10/21/2023. He had a previous stress echocardiogram performed in November, that was equivocal with patient unable to achieve target heart rate with noted reduced activity tolerance and a fixed subtle inferoseptal wall motion abnormality at that time. Echocardiogram performed at the bedside today revealed normal right ventricular chamber size and systolic function. There is a subtle anterior, anteroseptal wall motion abnormality at the mid and apical levels that was not present on the previous echo in 2022. The patient describes a longstanding history of exertional dyspnea that has been felt to be an anginal equivalent, and now has had several days of rest pain that he notes at night when he tries to go to sleep. Although he has had recent travel, and venous thromboembolic disease is a possibility, his presentation suggests progression of his underlying anginal symptoms. As noted, he has a history of stage IV chronic kidney disease and is anticipating need for dialysis in the near future. He is already tentatively scheduled for an outpatient cardiac catheterization tomorrow with protocol for contrast conservation. Patient aware that the procedure may precipitate need for dialysis. I spoke to Dr Tompkins of cardiology at [facility] who accepts the patient in transfer, but there are no telemetry beds available at present. Will tentatively admit the patient to [facility] with plans to start heparin infusion and continue his outpatient medications and keep patient n.p.o. after midnight with tentative plans for ground transfer perhaps to department at 7:30 AM for a 9 AM arrival to the cardiac catheterization staging area at [facility] for his planned procedure. I spent a total of 65 minutes on the date of service in preparation, delivery, and documentation of the care provided to this patient, excluding any time spent in the performance of separately billed services. History of Present Illness History of Present Illness Mr Kunz is a 68-year-old male seen in cardiology consultation per the request of Dr. Tovar for the evaluation of chest discomfort. Patient is well- known to our cardiology service. He also follows with [facility] nephrology for chronic kidney disease with most recent calculated GFR of 16 mL/min/m. The patient has a longstanding history of complex multilevel lower extremity peripheral vascular disease and has had multiple percutaneous revascularizations performed by vascular surgery at [facility] in the past. In 2014 he underwent coronary angiography at [facility] with findings of moderate nonobstructive disease with most significant lesion described as a long 40% lesion in the proximal LAD for which ongoing medical management was recommended at that time. Over the last few months the patient has had progressive debilitating dyspnea on exertion. He notes that he has had to reduce his responsibilities working at a local [employer] due to inability to walk or carry items. He was recently on a vacation to [place] from 10/11/2023 until 10/18/2023 and while there he states that he could barely walk a half city block before having to stop due to debilitating exhaustion with both shortness of breath and lower extremity fatigue. Over the last 4 nights he has noted a midline chest discomfort when lying supine that has waxed and waned. He had the discomfort again last night and decided to come to the emergency department for evaluation. EKG in the emergency department reveals sinus rhythm with T wave changes that are slightly more prominent than his most recent previous outpatient tracing from August,. His initial high-sensitivity troponin is elevated at 537.5 PG per mL with creatinine of 3.77 and calculated GFR of 15.7 mL/min/m. Patient comfortable and conversant at the time of my assessment. Telemetry reveals sinus rhythm in the 60s to 70s. Allergies Allergy/AdvReac Type Severity Reaction Status Date / Time No Known Allergies Allergy Verified 10/20/23 14:09 Home Medications Medication Instructions Recorded Confirmed Type amlodipine 10 mg tablet 10 mg PO QAM 12/15/18 10/20/23 History aspirin 81 mg tablet,delayed 81 mg PO QAM 12/15/18 10/20/23 History release (Aspir-) atorvastatin 40 mg tablet 40 mg PO QAM 12/15/18 10/20/23 History carvedilol 25 mg tablet (Coreg) 37.5 mg PO BID 12/15/18 10/20/23 History clopidogrel 75 mg tablet (Plavix) 75 mg PO QAM 12/15/18 10/20/23 History hydralazine 50 mg tablet 1.5 tabs PO TID 12/15/18 10/20/23 History insulin glargine 100 unit/mL (3 34 unit subcut QAM 12/15/18 10/20/23 History mL) subcutaneous pen (Lantus Solostar U-100 Insulin) cholecalciferol (vitamin D3) 25 100 mcg PO DAILY 01/05/20 10/20/23 History mcg (1,000 unit) capsule (Vitamin D3) lisinopril 10 mg tablet 10 mg PO QAM 01/05/20 10/20/23 History spironolactone 25 mg tablet 12.5 mg PO QAM 01/05/20 10/20/23 History terazosin 5 mg capsule 5 mg PO QAM 01/05/20 10/20/23 History allopurinol 100 mg tablet 200 mg PO QAM 10/20/23 10/20/23 History calcitriol 0.25 mcg capsule 0.25 mcg PO QAM 10/20/23 10/20/23 History furosemide 40 mg tablet 60 mg PO BID 10/20/23 10/20/23 History gabapentin 100 mg capsule 100 mg PO TID 10/20/23 10/20/23 History isosorbide mononitrate 60 mg 60 mg PO HS 10/20/23 10/20/23 History tablet,extended release 24 hr pantoprazole 40 mg tablet,delayed 40 mg PO QAM 10/20/23 10/20/23 History release Patient History Medical History (Updated 10/20/23 @ 15:26 by Erwin Bucio DO) Hallux rigidus, left foot Hallux rigidus, right foot Diabetes mellitus with diabetic polyneuropathy Callus Acquired hallux valgus of right foot Hallux valgus (acquired), left foot Skin ulcer of left great toe HLD (hyperlipidemia) CAD (coronary artery disease) BPH (benign prostatic hyperplasia) CKD (chronic kidney disease), stage III Thoracic aortic aneurysm Aortic root and ascending aorta mildly enlarged, per October 2018 [facility], measuring at 4.2 cm (no significant change from 2018) PAD (peripheral artery disease) History of multiple stenting procedures to lower extremities, most recently restenting and angioplasty of right popliteal artery in January 2017 at [facility] Diabetes mellitus, type II HTN (hypertension) Family History Other Heart disease Social History Smoking Status: Never smoker Second Hand Exposure: No; Do You Dip or Chew Tobacco: No; Hx Alcohol Use: No Hx Substance Use: No Preferred Language: Sinhala Communication Ability: Effective Supervisor Adult Education Required: No Beliefs That Will Affect Care: None marital status: Single Current Living Situation: Significant Other current occupational status: disabled Feels Safe at Home: Yes Assistive Devices: None Review of Systems Review of Systems: All systems reviewed & are unremarkable except as noted in HPI & below Musculoskeletal: Denies lower extremity pain or swelling. Physical Exam Constitutional: no acute distress Eyes: PERRL, conjunctivae normal, anicteric sclerae Respiratory: normal respiratory effort, lungs clear to auscultation Cardiovascular: RRR, no murmur, no edema Gastrointestinal (Abdomen): normal bowel sounds, soft, nontender, no hepatosplenomegaly Neurologic: PERRL, EOMI, accommodation nl, no face palsy, no dysarthria Results & Data Vital Signs (Past 12 Hours) Vital Signs Temp Pulse Pulse Resp BP BP Pulse Ox 10/20/23 15:02 73 10/20/23 14:22 71 16 140/68 95 10/20/23 13:46 98 10/20/23 12:27 36.6 C 76 18 146/65 H 98 O2 Del Method 10/20/23 15:02 10/20/23 14:22 Room Air 10/20/23 13:46 Room Air 10/20/23 12:27 Room Air Laboratory Results Cardiac Enzymes 10/20/23 Range/Units 12:34 AST 14 (13-39) U/L Troponin I High Sens 537.5 H* (0-20) pg/ml Coagulation 10/20/23 Range/Units 12:34 PT 11.2 (9.0-12.0) Seconds APTT 26 (21-31) Seconds CBC 10/20/23 Range/Units 12:34 WBC 8.23 (4.8-10.8) K/ul RBC 3.43 L (4.70-6.10) M/uL Hgb 10.3 L (14.0-18.0) g/dl Hct 30.6 L (42.0-52.0) % Plt Count 194 (130-400) K/uL Neut # (Auto) 5.81 (1.40-6.50) K/uL Lymph # (Auto) 1.51 (1.20-3.40) K/uL Lanier # (Auto) 0.73 H (0.11-0.59) K/uL Eos # (Auto) 0.12 (0.00-0.50) K/uL Baso # (Auto) 0.03 (0.00-0.20) K/uL Comprehensive Metabolic Panel 10/20/23 Range/Units 12:34 Sodium 137 (136-145) mmol/L Potassium 4.3 (3.5-5.1) mmol/L Chloride 106 (98-107) mmol/L Carbon Dioxide 19 L (21-32) mmol/L BUN 58 H (6-23) mg/dl Creatinine 3.77 H (0.6-1.4) mg/dl Glucose 253 H (70-99(Fasting)) mg/dl Calcium 9.3 (8.6-10.3) mg/dl AST 14 (13-39) U/L ALT 11 (7-52) U/L Alkaline Phosphatase 110 H (34-104) U/L Total Protein 6.9 (6.0-8.3) gm/dl Albumin 4.2 (3.4-5.0) gm/dl Intake and Output 10/20/23 10/20/23 10/20/23 06:59 14:59 22:59 Other: Weight 89.9 kg Weight Measurement Method Chair Scale Patient Weight 10/21/23 06:59 Weight 89.9 kg Diagnostic Findings EKG performed 10/20/2023 at 12:33 PM and interpret independently: Sinus rhythm at 77 bpm with occasional PVCs and PACs with ST-T wave changes consistent with anterolateral ischemia that are more prominent than the previous outpatient tracing performed 10/18/2023
[2023-10-20] MEDS: HEPARIN SODIUM/DEXTROSE 25,000 UNITS/500 ML BAG IV SCH (15:31)
[2023-10-20] MEDS: HEPARIN SOD (PORCINE) 1000 UNIT/ML IV ONE (15:31)
[2023-10-20] MEDS: SODIUM CHLORIDE 0.9% 500 ML IV ONE (15:32)
--- NOTE | 2023-10-20 15:49 | History & Physical Report ---
Date of Service October 20, 2023 Assessment & Plan (1) Acute non-ST elevation myocardial infarction (NSTEMI): Plan: This patient is an uncontrolled diabetic with ongoing angina pain, and an elevation in cardiac enzymes. There are TWI in lateral leads and TWI with some ST depression in V4-6 concerning for ischemia. He was pain-free, but during our conversation developed a "twinge" of pain that was mild. Nitro paste was added and he and family were counseled to alert staff if his pain did not go away or if it returned overnight. He verbalized understanding with intent to comply. A reassessment after nitro paste was zero chest pain. Cardiology consulted and echo today revealed a subtle anterior wall hypokinesis with an LV EF 55-60%. Mod MR and Grade II DD also noted. Continue heparin infusion, carvedilol, atorvastatin, Plavix and baby aspirin. Nitropaste added for symptoms which are now controlled. Continue monitoring in PCU overnight. N.p.o. after midnight with plans for transfer for heart catheterization at [facility] in the morning. (2) CKD (chronic kidney disease) stage 4, GFR 15-29 ml/min: Plan: Creatinine is up slightly from his baseline but is actually lower than recent outpatient lab work report. Hold Lasix, lisinopril, spironolactone. Notably patient is not on Veltassa. This should be clarified with nephrology who is managing his medication as outpatient. First priority is managing his NSTEMI with plan as noted above. Monitor BMP. Small amount of fluid was given in the ER this evening in preparation for contrast load tomorrow morning. (3) Anemia of chronic disease: Plan: Chronic, stable per outpatient medical record review. No active bleeding. Continue heparin drip and continue monitoring CBC. (4) Diabetes mellitus, type II: Plan: Chronic, uncontrolled. Repeat A1c in AM. Patient was counseled at bedside regarding the need for prandial coverage of his blood glucose and to discuss this further with his managing glycemic pharmacist as outpatient or with his primary care provider. He verbalized understanding with intent to comply. 1 treatment option to help reduce the risk of progression of chronic kidney disease is Jardiance. This was discussed with patient and his family. (5) PAD (peripheral artery disease): Plan: Chronic, patient with exercised induced last claudication that is worse in the last 4 months likely related to his heart disease. Continue medical management and reassess after cardiac cath tomorrow. (6) HTN (hypertension): Plan: Chronic, stable. Continue home medications except as noted above. (7) HLD (hyperlipidemia): Plan: Chronic, stable. Continue atorvastatin per home regimen. DVT prophylaxis-heparin drip Full code Disposition-to PCU with plans to transfer to [place] in AM. I spent a total of 75minutes coordinating, documenting, and providing care for this patient excluding time spent in the performance of separately billed services Ines Gaffney DO [facility] Hospitalist History of Present Illness Chief Complaint: referred by doctor Primary Care Provider: Kerline Sotelo DO 68 yo M presents today with progressive fatigue and SOB with exertion. He has been followed with outpatient [facility] cardiology and is scheduled for a cardiac catheterization tomorrow. After contacting the cardiology clinic regarding chest pain that developed here, he was advised to go to the ER for further testing. In the ER, his troponin is elevated into the 500s and there are concerning findings on his EKG. His chest pain was resolved without medication and he remains chest -pain free. He was treated for an NSTEMI with ASA 324 and a heparin drip and is on carvedilol per home medications. Workup also revealed worsening renal function in the setting of known CKD-Stage IV at baseline. IVF have been started. His creat in Jul was 2.77, and per outpatient records 3.5 (Sep 02)-->4.2-->4.0 (Oct 03). Today his creatinine is 3.77. He is on calcitriol, veltassa and sodium bicarb but reports that he is not taking his bicarb or Veltassa at this time. He is managed by [facility] Nephrology. He is a diabetic with most recent A1C in Mar 2023 and is 8.2. He is on Lantus monotherapy without prandial coverage. He is unaware of why, but reports his post prandial and fasting sugars are above goal. He reports his leg pain with exercise is getting worse. Hard to walk 10-20 ft without severe pain. Last couple months more sob, even with just getting up and going to the bathroom. He has been this was with decreased functional status over the last few years but prior to 4 months ago he could recover after one resting period and keep going. Now he reports that he cannot recover with rest. In fact, he just came back from [place] on vacation and couldn't walk more than 1 block without "gasping for air" and sitting down until his legs recovered. He has also had to quit his job in the last 6 months over not being able to function. Chest pain today felt like dull, discomfort in the substernal region. He felt it last night after he had laid down to sleep. Also felt assoc numbness in his left shoulder. When he sat up the pain started to go away--took over an hour fo this to occur, and this has been happening the last 4 nights consecutively. Allergies Allergy/AdvReac Type Severity Reaction Status Date / Time No Known Allergies Allergy Verified 10/20/23 14:09 Home Medications Medication Instructions Recorded Confirmed Type amlodipine 10 mg tablet 10 mg PO [facility] 12/15/18 10/20/23 History aspirin 81 mg tablet,delayed 81 mg PO [facility] 12/15/18 10/20/23 History release (Aspir-) atorvastatin 40 mg tablet 40 mg PO [facility] 12/15/18 10/20/23 History carvedilol 25 mg tablet (Coreg) 37.5 mg PO BID 12/15/18 10/20/23 History clopidogrel 75 mg tablet (Plavix) 75 mg PO [facility] 12/15/18 10/20/23 History hydralazine 50 mg tablet 1.5 tabs PO TID 12/15/18 10/20/23 History insulin glargine 100 unit/mL (3 34 unit subcut [facility] 12/15/18 10/20/23 History mL) subcutaneous pen (Lantus Solostar U-100 Insulin) cholecalciferol (vitamin D3) 25 100 mcg PO DAILY 01/05/20 10/20/23 History mcg (1,000 unit) capsule (Vitamin D3) lisinopril 10 mg tablet 10 mg PO [facility] 01/05/20 10/20/23 History spironolactone 25 mg tablet 12.5 mg PO [facility] 01/05/20 10/20/23 History terazosin 5 mg capsule 5 mg PO HS 01/05/20 10/20/23 History allopurinol 100 mg tablet 200 mg PO [facility] 10/20/23 10/20/23 History calcitriol 0.25 mcg capsule 0.25 mcg PO QAM 10/20/23 10/20/23 History furosemide 40 mg tablet 60 mg PO BID 10/20/23 10/20/23 History gabapentin 100 mg capsule 100 mg PO TID 10/20/23 10/20/23 History isosorbide mononitrate 60 mg 60 mg PO HS 10/20/23 10/20/23 History tablet,extended release 24 hr pantoprazole 40 mg tablet,delayed 40 mg PO QAM 10/20/23 10/20/23 History release Past Med/Surg History Medical History (Updated 10/20/23 @ 15:48 by Ines Gaffney DO) CKD (chronic kidney disease), stage III Femoro-popliteal artery disease with revascularization [facility]19[facility]20[facility] Amputation toe CKD (chronic kidney disease) stage 4, GFR 15-29 ml/min Hallux rigidus, left foot Hallux rigidus, right foot Diabetes mellitus with diabetic polyneuropathy Callus Acquired hallux valgus of right foot Hallux valgus (acquired), left foot Skin ulcer of left great toe HLD (hyperlipidemia) CAD (coronary artery disease) BPH (benign prostatic hyperplasia) Thoracic aortic aneurysm Aortic root and ascending aorta mildly enlarged, per October 2018 [facility], measuring at 4.2 cm (no significant change from 2018) PAD (peripheral artery disease) History of multiple stenting procedures to lower extremities, most recently restenting and angioplasty of right popliteal artery in January 2017 at [facility] Diabetes mellitus, type II HTN (hypertension) Surgical History (Updated 10/20/23 @ 15:47 by Ines Gaffney DO) S/P rotator cuff repair Family History (Updated 10/20/23 @ 15:47 by Ines Gaffney DO) Mother Heart disease Social History Smoking Status: Never smoker Second Hand Exposure: No; Do You Dip or Chew Tobacco: No; Hx Alcohol Use: No Hx Substance Use: No Preferred Language: Romansh Communication Ability: Effective 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: No Beliefs That Will Affect Care: None marital status: Single Current Living Situation: Significant Other current occupational status: disabled Feels Safe at Home: Yes Assistive Devices: None Physical Exam Physical Exam: CONSTITUTIONAL: WNWD, vitals as above, generally well-appearing, NAD EYES: pupils are round and equal bilaterally, normal conjunctivae, no scleral icterus ENT: external ear and nose normal, oropharynx clear, MMM NECK: trachea midline RESPIRATORY: clear to auscultation bilaterally, no crackles, rales or wheezes, normal respiratory effort CARDIOVASCULAR: regular rate and rhythm, S1 and 2 heard without murmurs, gallops or rubs, no JVD, no peripheral edema CHEST: inspection of chest was normal GASTROINTESTINAL: normal bowel sounds, soft, nontender MUSCULOSKELETAL: strength 5/5 throughout, head is normocephalic and atraumatic SKIN: warm and dry NEUROLOGIC: CN 2-12 grossly intact, no sensory deficit, normal cognition, normal speech, no tremor PSYCHIATRIC: alert cooperative and oriented to person, place and time. Euthymic mood, makes good eye contact, language grossly intact, recent and remote memory grossly intact. Results & Data Results & Data Vital Signs (Past 12 Hours) Vital Signs Temp Pulse Pulse Resp BP BP Pulse Ox 10/20/23 15:02 73 10/20/23 14:22 71 16 140/68 95 10/20/23 13:46 98 10/20/23 12:27 36.6 C 76 18 146/65 H 98 O2 Del Method 10/20/23 15:02 10/20/23 14:22 Room Air 10/20/23 13:46 Room Air 10/20/23 12:27 Room Air Laboratory Results Short CBC 10/20/23 Range/Units 12:34 WBC 8.23 (4.8-10.8) K/ul Hgb 10.3 L (14.0-18.0) g/dl Hct 30.6 L (42.0-52.0) % Plt Count 194 (130-400) K/uL BMP 10/20/23 12:34 Sodium 137 Potassium 4.3 Chloride 106 Carbon Dioxide 19 L BUN 58 H Creatinine 3.77 H Glucose 253 H Calcium 9.3 Liver Function 10/20/23 Range/Units 12:34 Total Bilirubin 0.6 (0.2-1.0) mg/dl AST 14 (13-39) U/L ALT 11 (7-52) U/L Alkaline Phosphatase 110 H (34-104) U/L Albumin 4.2 (3.4-5.0) gm/dl Diagnostic Findings Chest X-Ray 10/20/23 12:33 XR chest 1V not portable HISTORY: 68 years-old Male Chest pain, nonspecific COMPARISON: 08/05/2022 TECHNIQUE: PA view of the chest FINDINGS: Cardiac mediastinal and hilar silhouettes are within normal limits. No pneumothorax, pleural effusion or airspace consolidation. Bones appear grossly intact. Spondylitic spurring of the spine. IMPRESSION: No acute process. ACT 112: Negative or not required by law. The above report was generated using voice recognition software. It may contain grammatical, syntax or spelling errors. Electronically signed by: Danie Zamora M.D. 10/20/2023 1:49 PM Code Status & VTE Plan VTE Prophylaxis Plan VTE Prophylaxis will be ordered: Yes
[2023-10-20] MEDS: Heparin IV Adult Wt-Based Low-Dose w/ INITIAL Bolus Protocol IV STA (15:56)
[2023-10-20] MEDS: NITROGLYCERIN 2% OINTMENT 30GM TUBE EXT ONE (16:45)
[2023-10-20] MEDS ORDERED: POLYETHYLENE (MIRALAX) 17 GM PACK PO PRN (18:19)
[2023-10-20] MEDS ORDERED: GLUCAGON FOR INJ 1 MG VIAL SQ PRN (18:19)
[2023-10-20] MEDS ORDERED: GLUCOSE 40% GEL 15 GM TUBE PO PRN (18:19)
[2023-10-20] MEDS ORDERED: ACETAMINOPHEN 325 MG TAB PO PRN (18:19)
[2023-10-20] MEDS ORDERED: GLUCOSE 10 TAB/TUBE PO PRN (18:19)
[2023-10-20] MEDS ORDERED: DEXTROSE 50% 50 ML SYRINGE IV PRN (18:19)
[2023-10-20] MEDS ORDERED: CARBOHYDRATES FOR HYPOGLYCEMIA PO PRN (18:19)
[2023-10-20] MEDS: NITROGLYCERIN 2% OINTMENT 30GM TUBE EXT SCH (18:32)
[2023-10-20] MEDS: INSULIN ASPART PER UNIT CHARGE SC SCH (19:05)
[2023-10-20] MEDS: carvediloL 25 MG TAB PO SCH (19:23)
[2023-10-20] MEDS: hydrALAZINE HCL 25 MG TAB PO SCH (21:23)
[2023-10-20] MEDS: TERAZOSIN HCL 5 MG CAP PO SCH (21:23)
[2023-10-20] MEDS: ISOSORBIDE MONO EXTENDED REL 60 MG TABCR PO SCH (21:24)
[2023-10-20] MEDS: GABAPENTIN 100 MG CAP PO SCH (21:24)
[2023-10-20] MEDS: LANTUS PER UNIT CHARGE SQ SCH (21:28)
--- OUTSIDE RECORDS SUMMARY | 2023-10-21 00:18 | External Medical Summary ---
Author Name Unknown Address Unknown Organization K01:[facility] [address] [facility] [address] Laboratory Report Ordering Provider Test Date Status SHANELLE CAMARILLO 10/08/2023 14:17:34 Final Observation Date Value Abnormality Reference (Units ) Status WBC, Total 10/08/2023 14:17:34 7.50 4.00-10.80 (K/uL) Final RBC 10/08/2023 14:17:34 3.55 4.50-5.25 (M/uL) Final Hemoglobin 10/08/2023 14:17:34 11.1 Below low normal 14.0-16.8 (g/dL) Final HCT 10/08/2023 14:17:34 32.4 Below low normal 40.0-48.4 (%) Final MCV 10/08/2023 14:17:34 91.3 82.0-99.5 (fL) Final MCH 10/08/2023 14:17:34 31.3 27.0-34.0 (pg) Final MCHC 10/08/2023 14:17:34 34.3 32.0-36.0 (g/dL) Final RDW 10/08/2023 14:17:34 14.1 11.5-15.5 (%) Final Platelets 10/08/2023 14:17:34 217 140-400 (K/uL) Final MPV 10/08/2023 14:17:34 10.4 6.6-11.1 (fL) Final Nucleated erythrocytes/100 leukocytes [Ratio] in Blood by Automated count 10/08/2023 14:17:34 0 <=0 (/100 WBCs) Final Performing Location [facility] [address] [facility] [address]
--- OUTSIDE RECORDS SUMMARY | 2023-10-21 00:18 | External Medical Summary | Summary of Care ---
Author Name Unknown Organization [facility] Address [address] [place] [address] Phone [phone] Care Team Providers Care Daycare Provider Name Role Phone DinoKerline craven Primary Care Provider [phone] Reason for Visit * Reason Comments Outpatient Testing Encounter Details Date Type Department Care Team (Late st Contact Info) Description 10/08/2023 1:50 PM EST Laboratory Laboratory, [facility] [address] [place] [id number] [facility] [address], [place] [id number] ARRIAGA (dyspnea on exertion); ASCVD (arteriosclerotic cardiovascular disease) Allergies No known active allergiesdocumented as of this encounter (statuses as of 10/08/2023) Medications Medication Sig Dispensed Refills Start Date End Date Status ASPIRIN LOW DOSE 81 MG PO TABSIndications:Othe r specified prophylactic or treatment measure 1 TABLET DAILY 30 Tab 11 05/19/2013 Active Blood Glucose Monitoring Suppl (ONETOUCH VERIO) w/Device KITIndications:[place] glucose Use up to 4 times a day E11.9 1 Kit 0 12/22/2018 Active ONETOUCH DELICA LANCETS 33G MISC test blood sugars up to four times daily. ICD-10: E11.9 100 Each 11 08/15/2019 Active Spacer/Aero-Holding Chambers DeviceIndications:DO E (dyspnea on exertion),Shortness of breath Use with inhaler. 1 Each 0 09/18/2022 Active Additional Information Patient not taking.Reported on 09/17/2023 Melatonin 10 MG Oral Tablet Take 1 Tablet by mouth at bedtime. 0 Active Spironolactone 25 MG Oral Tablet (Aldactone) TAKE ONE-HALF TABLET BY MOUTH EVERY MORNING 45 Tablet 3 02/02/2023 4 Active amLODIPine Besylate 10 MG Oral Tablet (Norvasc)Indications :Essential hypertension with goal blood pressure less than 140/90 TAKE ONE TABLET BY MOUTH EVERY MORNING 90 Tablet 3 02/02/2023 4 Active hydrALAZINE HCl 50 MG Oral Tablet (Apresoline) TAKE ONE AND ONE-HALF TABLETS BY MOUTH EVERY MORNING, ONE AND ONE-HALF TABLETS AT NOON AND ONE AND ONE-HALF TABLETS BEFORE BEDTIME 405 Tablet 3 12/12/2022 4 Active Additional Information Patient taking differently: Oral BID (.AM/PM), 1.5 tabs, Reported on 09/02/2023 Isosorbide Mononitrate ER 60 MG Oral Tablet Extended Release 24 Hour (Imdur)Indications:D OE (dyspnea on exertion) TAKE ONE TABLET BY MOUTH EVERY MORNING 90 Tablet 3 11/26/2022 4 Active Atorvastatin Calcium 40 MG Oral Tablet (Lipitor)Indications :Other hyperlipidemia TAKE ONE TABLET BY MOUTH EVERY MORNING 90 Tablet 3 11/26/2022 4 Active Insulin Pen Needle 31G X 6 MMIndications:Type 2 diabetes mellitus with hemoglobin A1c goal of less than 7.0% (HCC) USE WITH LANTUS ONCE DAILY OR DIRECTED 300 Each 3 11/20/2022 4 Active Lantus SoloStar 100 UNIT/ML Subcutaneous Solution Pen-injectorIndicati ons:Type 2 diabetes mellitus with hemoglobin A1c goal of less than 7.0% (HCC) INJECT 18 UNITS UNDER THE SKIN ONCE DAILY 30 mL 3 11/20/2022 4 Active Additional Information Patient taking differently: 34 Units Subcutaneous Daily(AM), Reported on 09/02/2023 Glucose Blood In Vitro Strip USE TO TEST BLOOD SUGAR FOUR TIMES A DAY 400 Strip 3 10/02/2022 4 Active Lisinopril 40 MG Oral Tablet TAKE ONE TABLET BY MOUTH EVERY DAY IN THE MORNING 90 Tablet 2 09/25/2022 4 Active Additional Information Patient taking differently: 20 mg, Reported on 02/18/2023 FreeStyle Juju 2 Sensor Use as directed. Every 14 days 2 Each 0 02/19/2023 Active Allopurinol 100 MG Oral Tablet (Zyloprim) Take 2 Tablets by mouth in the morning. 180 Tablet 3 03/20/2023 Active Sodium Bicarbonate 650 MG Oral TabletIndications:Ch ronic kidney disease, stage 4 (severe) (HCC) Take 2 Tablets by mouth in the morning and 2 Tablets before bedtime. 120 Tablet 11 04/06/2023 Active Furosemide 40 MG Oral Tablet (Lasix)Indications:L abile blood pressure,Hypertensiv e kidney disease with stage 3b chronic kidney disease (HCC) Take 1.5 Tablets by mouth 2 times a day. 300 Tablet 3 04/20/2023 Active Veltassa 8.4 GM Oral Packet (Patiromer Sorbitex Calcium)Indications: Hypertensive kidney disease with stage 3b chronic kidney disease (HCC) Mix 1 packet (8.4g) in water and drink the morning. 30 Each 5 05/10/2023 Active Pantoprazole Sodium 40 MG Oral Tablet Delayed Release (Protonix)Indication s:ARRIAGA (dyspnea on exertion),Shortness of breath TAKE ONE TABLET BY MOUTH EVERY EVENING 100 Tablet 3 05/19/2023 Active Calcitriol 0.25 MCG Oral Capsule (Rocaltrol)Indicatio ns:Hypertensive kidney disease with stage 3b chronic kidney disease (HCC) Take 1 Capsule by mouth in the morning. 30 Capsule 5 05/19/2023 Active Gabapentin 100 MG Oral Capsule (Neurontin)Indicatio ns:Sensory neuropathy TAKE ONE CAPSULE BY MOUTH THREE TIMES A DAY -- IN THE MORNING, AT NOON AND BEFORE BEDTIME 90 Capsule 5 08/05/2023 4 Active Terazosin HCl 2 MG Oral CapsuleIndications:H ypertensive kidney disease with chronic kidney disease stage III (HCC),Thoracic aortic aneurysm without rupture (HCC),Hypertensive kidney disease with stage 3b chronic kidney disease (HCC),HTN, goal below 130/80,Labile blood pressure TAKE TWO CAPSULES BY MOUTH AT BEDTIME 180 Capsule 3 09/21/2023 5 Active Clopidogrel Bisulfate 75 MG Oral Tablet (pLAVix)Indications: Atherosclerosis of [place] arteries of the extremities with ulceration (HCC) TAKE ONE TABLET BY MOUTH EVERY DAY IN THE MORNING 100 Tablet 1 09/30/2023 5 Active Carvedilol 25 MG Oral Tablet (Coreg)Indications:H ypertensive kidney disease with chronic kidney disease stage III (HCC) TAKE ONE AND ONE-HALF TABLETS BY MOUTH TWICE A DAY 270 Tablet 1 09/29/2023 5 Active documented as of this encounter (statuses as of 10/08/2023) Active Problems Problem Noted Date Diagnosed Date Uncomplicated asthma 08/19/2023 Chronic diastolic heart failure 08/13/2023 Type 2 diabetes mellitus with other specified co mplication 08/13/2023 Diabetic ulcer of toe of lef t foot associated with type 2 diabetes mellitus 08/13/2023 Cardiac asthma 09/19/2022 Diabetes mellitus 09/01/2022 Dyslipidemia, goal LDL below 70 09/01/2022 Renal osteodystrophy 09/01/2022 Multiple thyroid nodules 09/01/2022 History of amputation of hallux 09/01/2022 Chronic kidney disease, stage 4 (severe) 022 Secondary hyperparathyroidism of renal origin Atherosclerosis of [place] ar teries of the extremities with ulceration 03/07/2022 Multinodular goiter 03/07/2022 Major depressive disorder with single episode Type 2 diabetes mellitus wit h diabetic neuropathy, with long-term current use of insulin 03/07/2022 Depression 05/03/2021 Hypertensive kidney disease with stage 3b chronic kidney disease 06/18/2020 Overview: Per CKD protocol Type 2 diabetes mellitus wit h moderate nonproliferative diabetic retinopathy with macular edema, bilateral 05/28/2020 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[place] coronary artery without angina pectoris 05/28/2020 Diabetes mellitus with nephropathy 05/25/2019 Diabetes mellitus type 2 with peripheral artery disease 05/25/2019 Aortic root dilatation 05/25/2019 Diabetes mellitus, insulin dependent (IDDM), con trolled 05/25/2019 DDD (degenerative disc disease), cervical 2017 Urinary retention 08/25/2017 BPH with obstruction/lower urinary tract symptom s 08/25/2017 PAD (peripheral artery disease) 07/24/2016 Eczema 09/13/2014 Nodule of flexor tendon sheath 09/13/2014 Thoracic aortic aneurysm 08/25/2013 Family history of ischemic heart disease 014 Vitamin D deficiency 08/02/2013 HTN, goal below 140/90 06/21/2013 documented as of this encounter (statuses as of 10/08/2023) Resolved Problems Problem Noted Date Diagnosed Date Resolved Date Vitreous hemorrhage of right eye 09/01/2022 08/13/2023 Type 2 diabetes mellitus wit h stage 3b chronic kidney disease 12/18/2020 09/01/2022 Overview: Per CKD protocol Chronic kidney disease, stage 3b 12/18/2020 08/20/2021 Overview: Per CKD protocol Duplicate. Type 2 diabetes mellitus wit h diabetic polyneuropathy 05/28/2020 03/07/2022 Moderate nonproliferative di abetic retinopathy of both eyes with macular edema associated with type 2 diabetes mellitus 05/25/2019 08/20/2021 Overview: Duplicate. Hypertensive kidney disease with chronic kidney disease stage III 12/20/2018 06/21/2020 Overview: Per CKD protocol Diabetes mellitus with stage 3 chronic kidney disease 12/20/2018 12/20/2020 Overview: Per CKD protocol Neck pain 06/18/2018 12/20/2018 Sepsis due to group B Streptococcus 08/25/2017 05/23/2019 Atypical chest pain 08/25/2017 12/21/19 19 Kidney disease, chronic, sta ge III (GFR 30-59 ml/min) 02/19/2016 01/19/2019 Recurrent UTI 02/19/2016 05/23/2019 Overview: acute PVD (peripheral vascular disease) 06/13/2014 02/02/2017 ARRIAGA (dyspnea on exertion) 08/25/2013 Type 2 diabetes mellitus wit h hemoglobin A1c goal of less than 7.0% 08/02/2013 08/20/2021 Overview: ICD-10 update of inactive term Duplicate. Hypertriglyceridemia 06/21/2013 017 documented as of this encounter (statuses as of 10/08/2023) Immunizations Name Administration Dates Next Due COVID-19 Whole Virus, Rollins Vac, 2-Dose Series ([employer]) 06/10/2021,11/08/2020,10/08/2020 Pneumococcal Polysaccharide PPV23 (Pneumovax) 05/19/2013 Seasonal Influenza, PF, 6 M & above, IM , (FluLaval or Fluzone) 05/13/2021,05/28/2020,05/25/2019,08/18 Seasonal Influenza, Quadriva lent Hd (Fluzone Hd) 05/06/2023,04/10/2022 Seasonal Influenza, Quadriva lent, No Preserve, IM 06/02/2016,08/16/2015 Seasonal Influenza, Split, I IV3, With Preserve, Inj 06/13/2014,05/19/2013 TDAP (age 10 and older)(Boostrix) 11/18/2013 Zoster Vaccine Recombinant (Shingrix) 02/15/2018 documented as of this encounter Social History Tobacco Use Types Packs/Day Years Used Date Smoking Tobacco: Never Passive Smoke Exposure: Past Smokeless Tobacco: Never Alcohol Use Standard Drinks/Week Comments No 0 (1 standard drink = 0.6 oz pur e alcohol) in the past, but not currently PHQ-2 Answer Date Recorded PHQ Adult Total Score 0 08/19/2023 Hunger Vital Sign Answer Date Recorded Within the past 12 months, y ou worried that your food would run out before you got the money to buy more. Never true 08/19/19 24 Within the past 12 months, t he food you bought just didn't last and you didn't have money to get more. Never true 08/19/2023 Sex and Gender Information Value Date Recorded Sex Assigned at Male 12/21/2018 3:54 PM EDT Gender Identity Male 12/21/2018 3:54 PM EDT Sexual Orientation Straight 12/21/2018 3: 54 PM EDT Job Start Date Occupation Industry Not on file Not on file Not on file documented as of this encounter Functional Status Functional Status Response Date of Assess ment Are you deaf or do you have serious difficulty h earing? No 02/21/2022 Are you blind or do you have serious difficulty seeing, even when wearing glasses? No 02/21/2022 Do you have serious difficul ty walking or climbing stairs? (5 years old or older) No 02/21/2022 Do you have difficulty dress ing or bathing? (5 years old or older) No 02/21/2022 Because of a physical, menta l, or emotional condition, do you have difficulty doing errands alone such as visiting a doctor s office or shopping? (15 years old or older) No 02/22/20 Cognitive Status Response Date of Assessm ent Because of a physical, menta l, or emotional condition, do you have serious difficulty concentrating, remembering, or making decisions? (5 years old or older) No 02/21/2022 documented as of this encounter Plan of Treatment Upcoming Encounters Date Type Department Care Team (Latest Contact Info) Description 10/21/2023 9:00 AM EDT Hospital Encounter CRS Waiting [facility], Cardiac Recovery Suite Waiting Unit, [address] [place] [address] Rao Espinoza MD [address] [place] [address] 10/21/2023 9:00 AM EDT - 10/21/2023 10:00 AM EDT Surgery CRS Waiting [facility], Cardiac Recovery Suite Waiting Unit, [address] [place] [address] Rao Espinoza MD [address] [place] [address] CORONARY ANGIOGRAPHY W/LEFT HEART CATH 10/21/2023 9:00 AM EDT Office Visit Cardiology [facility], [place] [address] [place] [address] [facility] Cardiac [facility] [address] [place] [address] 10/26/2023 1:00 PM EDT Office Visit Family Practice [address], [place] [address] [place] [address] Kerline Sotelo DO [address] [place] [address] 10/27/2023 9:00 AM EDT Office Visit Podiatry [facility] [address] [facility] [place] [address] Angeles Arciniega, MERLY [address] [place] [address] 11/27/2023 8:30 AM EDT Office Visit Cardiology, [facility] [address] [place] [place] [address] Odilia Arce CRNP [address] [facility] [place] [address] 03/02/2024 10:30 AM EDT Imaging Vascular Lab, [facility] 2nd Floor, [place] [address] [place] [address] 03/02/2024 11:30 AM EDT Imaging Vascular Lab, [facility] 2nd [facility], [place] [address] [place] [place] [address] 03/09/2024 8:30 AM EDT Office Visit Vascular Surgery, [facility] [address] [place] [address] Erwin Olsen MD [address] [place] [address] Pending Results Name Type Priority Associated Diagnoses Date /Time COMPREHENSIVE METABOLIC PANEL Lab Routine ARRIAGA (dyspnea on exertion) ASCVD (arteriosclerotic cardiovascular disease) 10/08/2023 2:17 PM EST PT INR Lab Routine ARRIAGA (dyspnea on exertion) ASCVD (arteriosclerotic cardiovascular disease) 10/08/2023 2:17 PM EST CBC Lab Routine ARRIAGA (dyspnea on exertion) ASCVD (arteriosclerotic cardiovascular disease) 10/08/2023 2:17 PM EST Scheduled Procedures Name Priority Associated Diagnoses Date/Ti me CORONARY ANGIOGRAPHY W/LEFT HEART CATH Chest pain ARRIAGA (dyspnea on exertion) 10/21/2023 9:00 AM EDT COLONOSCOPY FLEXIBLE PROXIMAL DIAGNOSTIC Recall History of colon polyps Special screening for malignant neoplasms, colon Health Maintenance Due Date Last Done Comments Pneumococcal Vaccine: 65+ Years (2 of 2 - PCV) 05/19/2014 05/19/2013 Zoster Vaccines (2 of 2) 04/12/2018 02/15/2018 COLONOSCOPY-EVERY 5 YRS AGES 18-100 03/27/2021 03/27/2016, 03/27/2016, 12/13/2013, Additional history exists COVID-19 Vaccine (3 - WHO-authorized risk series) 07/08/2021 06/10/2021, 11/08/2020, 10/08/2020 HbA1c 10/08/2023 04/09/2023, 02/07, 09/01/2022, Additional history exists DTaP,Tdap,and Td Vaccines (2 - Td or Tdap) 11/19/2023 11/18/2013 Diabetic Eye Exam 01/16/2024 01/15/2023, , 01/07/2023, Additional history exists Diabetic Foot Exam 01/27/2024 01/26/2023, 0 03/07/2022, 05/28/2020, Additional history exists GFR 03/16/2024 09/16/2023, 08/11, 08/13/2023, Additional history exists Albumin/Creatinine Ratio 05/04/2024 023, 11/13/2022, 07/02/2022, Additional history exists Depression Screening 08/19/2024 08/19/2023 Influenza Vaccine (FLU shot) Completed , 04/10/2022, 05/13/2021, Additional history exists GARDASIL-HPV IMMUNIZATION SERIES Aged Out No longer eligible based on patient's age to complete this topic Hepatitis B Aged Out No longer eligi ble based on patient's age to complete this topic MENINGOCOCCAL (MENACTRA/MENVEO) Aged Out No longer eligible based on patient's age to complete this topic documented as of this encounter Medical Devices Implanted Type Area Cardiac Nurse Practitioner Device Identifier Shelf Expiration Date Model / Serial / Lot Supera Peripheral Stent Implanted:Qty : 1 on 05/01/2014 at [place] [facility] Left: Popliteal Artery 11/08/2015 [id number] / / [id number] Description:5.9x481oh Stent Complete Sc 7x150 - [id number] Implanted:Qty : 1 on 05/01/2014 at [place] [facility] Left: SFA [employer] : VASCULAR 02/07/2016 [id number] / / [id number] Graft Stent Viab [id number] - [id number] Implanted:Qty : 1 on 05/01/2014 at [place] [facility] Left: SFA [employer] 03/09/2017 [id number] / / [id number] Stent Complete Sc 6x60 - [id number] Implanted:Qty : 1 on 07/23/2016 by Erwin Olsen MD at [place] [facility] Left: Popliteal Artery [employer] : VASCULAR 02/25/2018 [id number] / / [id number] Stent Viabahn Implanted:Qty : 1 on 01/12/2017 by Erwin Olsen MD at [place] [facility] Right: SFA 08/20/2018 [id number] / [id number] / Graft Stent Viab 2spo6ly - [id number] - [id number] Implanted:Qty : 1 on 01/12/2017 by Erwin Olsen MD at [place] [facility] Right: SFA [employer] 10/01/2019 [id number] / [id number] / Stent Peripheral 7 Diam 150x20 - [id number] Implanted:Qty : 1 on 09/01/2019 by Erwin Olsen MD at [place] [facility] Left: SFA [employer] : VASCULAR [id number] 01/12/2022 [id number] / / [id number] [facility] Cls Cadn Mynx6/7fr - [id number] Implanted:Qty : 1 on 02/21/2022 by Erwin Olsen MD at [place] [facility] [employer] [id number] 01/07/2023 [id number] / / [id number] documented as of this encounter Visit Diagnoses Diagnosis ARRIAGA (dyspnea on exertion) Other dyspnea and respiratory abnormality ASCVD (arteriosclerotic cardiovascular disease) Unspecified cardiovascular disease Chest pain Chest pain, unspecified ARRIAGA (dyspnea on exertion) Other dyspnea and respiratory abnormality documented in this encounter Advance Directives Latest Code Status on File Code Status Date Activated Date Inactivated Comments Full Code 01/19/2023 9:29 AM 01/19/2023 4:56 PM This order reflects the patients wishes and were consensually agreed upon. Question Answer Comments Discussion of Advance Directives occurred with: Not Discussed due to patient's condition Code Status History Code Status Date Activated Date Inactivated Comments Full Code 02/21/2022 5:40 PM 02/22/2022 2:24 PM This order reflects the patients wishes and were consensually agreed upon. Question Answer Comments Discussion of Advance Directives occurred with: Patient Full Code 02/21/2022 10:53 AM 02/21/2022 5:40 PM This order reflects the patients wishes and were consensually agreed upon. Full Code 01/12/2017 12:17 PM 01/13/2017 8:49 PM This o rder reflects the patients wishes and were consensually agreed upon. Full Code 07/23/2016 3:18 PM 07/24/2016 2:23 PM Question Answer Comments Discussion of Advance Directives occurred with: Not Discussed Does the patient have a Living Will? No Does the patient have Health Care Power of Field Staff Manager? No Care Teams Daycare Provider Relationship Specialty Start Date End Date Kerline Sotelo DO [address] [place] [address] PCP - General Family Medicine 03/29/23 documented as of this encounter
--- OUTSIDE RECORDS SUMMARY | 2023-10-21 00:18 | External Medical Summary | Summary of Care ---
Author Name Unknown Organization [facility] Address [address] [place] [address] Phone [phone] Care Team Providers Care Filling Hand Name Role Phone Kerline Sotelo Primary Care Provider + [phone] Encounter Details Date Type Department Care Team (Late st Contact Info) Description 09/29/2023 Population Health External Data Unspecified Department Allergies No known active allergiesdocumented as of this encounter (statuses as of 09/30/2023) Medications Medication Sig Dispensed Refills Start Date End Date Status ASPIRIN LOW DOSE 81 MG PO TABSIndications:Othe r specified prophylactic or treatment measure 1 TABLET DAILY 30 Tab 11 05/19/2013 Active Blood Glucose Monitoring Suppl (ONETOUCH VERIO) w/Device KITIndications:[place]win glucose Use up to 4 times [...] 75 MG Oral Tablet (pLAVix)Indications: Atherosclerosis of [place] arteries of the extremities with ulceration (HCC) TAKE ONE TABLET BY MOUTH EVERY DAY IN THE MORNING 100 Tablet 1 09/30/2023 5 Active Carvedilol 25 MG Oral Tablet (Coreg)Indications:H ypertensive kidney disease with chronic kidney disease stage III (HCC) TAKE ONE AND ONE-HALF TABLETS BY MOUTH TWICE A DAY 270 Tablet 1 09/29/2023 5 Active documented as of this encounter (statuses as of 09/30/2023) Active Problems Problem Noted Date Diagnosed Date [...] Secondary hyperparathyroidism of renal origin Atherosclerosis of [place] ar teries of the extremities with ulceration [...] bilateral 05/28/2020 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[place] coronary artery without angina pectoris 05/28/2020 Diabetes [...] as of this encounter (statuses as of 09/30/2023) Resolved Problems Problem Noted Date Diagnosed Date [...] as of this encounter (statuses as of 09/30/2023) Immunizations Name Administration Dates Next Due COVID-19 Whole Virus, Rollins Vac, 2-Dose Series ([address]) 06/10/2021,11/08/2020,10/08/2020 Pneumococcal Polysaccharide PPV23 (Pneumovax) 05/19/2013 Seasonal [...] (15 years old or older) No 02/22/20 22 Cognitive Status Response Date of Assessm ent Because of a physical, menta l, or emotional condition, do you have serious difficulty concentrating, remembering, or making decisions? (5 years old or older) No 02/21/2022 documented as of this encounter Plan of Treatment Upcoming Encounters Date Type Department Care Team (Latest Contact Info) Description 10/21/2023 9:00 AM EDT Hospital Encounter CRS Waiting [facility], Cardiac Recovery Suite Waiting Unit, [address] [place] [address] Rao Espinoza MD [address] [place] [address] 10/21/2023 9:00 AM EDT - 10/21/2023 10:00 AM EDT Surgery CRS Waiting [facility], Cardiac Recovery Suite Waiting Unit, [address] [place] [address] Rao Espinoza MD [address] [place] [address] CORONARY ANGIOGRAPHY W/LEFT HEART CATH 10/21/2023 9:00 AM EDT [facility] [address] [place] [address] [facility] [address] [place] [address] 10/26/2023 1:00 PM EDT Office Visit Family Practice 65 [facility] [address] [facility] [place] [place] [address] Kerline Sotelo DO 293 [place] [address] 10/27/2023 9:00 AM EDT Office Visit Podiatry [facility] 132 [facility] [place] [address] Angeles Arciniega DPM 132 [facility] [place] [address] 11/27/2023 8:30 AM EDT Office Visit Cardiology, [facility] [address] [place] [address] Odilia Arce CRNP [address] [place] [address] 03/02/2024 10:30 AM EDT Imaging Vascular Lab, [facility] 2nd [address] [place] [address] 03/02/2024 11:30 AM EDT Imaging Vascular Lab, [address] [place] [address] 03/09/2024 8:30 AM EDT Office Visit Vascular Surgery, [address] [address] Erwin Olsen MD [address] [place] [address] Scheduled Procedures Name Priority Associated Diagnoses Date/Ti [...] this encounter Medical Devices Implanted Type Area Solder Technician Device Identifier Shelf Expiration Date Model / Serial / Lot Supera Peripheral Stent Implanted:Qty : 1 on 05/01/2014 at OR [facility] Left: Popliteal Artery 11/08/2015 [id number] -120-P6 / / [id number] Description:[id number] Stent Complete [place] 7x150 - [id number] Implanted:Qty : 1 on 05/01/2014 at OR [facility] Left: SFA [employer] : VASCULAR 02/07/2016 [id number] / / [id number] Graft Stent Viab [id number] - [id number] Implanted:Qty : 1 on 05/01/2014 at OR [facility] Left: SFA [employer] 03/09/2017 [id number] / / [id number] Stent Complete Ny 6x60 - [id number] Implanted:Qty : 1 on 07/23/2016 by Erwin Olsen MD at OR [facility] Left: Popliteal Artery [employer] : VASCULAR 02/25/2018 [id number] / / [id number] Stent Viabahn Implanted:Qty : 1 on 01/12/2017 by Eriwn Olsen MD at OR [facility] Right: SFA 08/20/2018 [id number] 02A / [id number] / Graft Stent Viab [id number] - [id number] - [id number] Implanted:Qty : 1 on 01/12/2017 by Erwin Olsen MD at OR [facility] Right: SFA [employer] 10/01/2019 [id number] 02A / [id number] / Stent Peripheral 7 Diam 150x20 - [id number] Implanted:Qty : 1 on 09/01/2019 by Erwin Olsen MD at OR [facility] Left: SFA [employer] : VASCULAR [id number] 01/12/2022 [id number] -020-150 / / [id number] Device [facility] Cls Cadn Mynx6/7fr - [id number] Implanted:Qty : 1 on 02/21/2022 by Erwin Olsen MD at OR [facility] CARDIOVASCULAR DYNAMICS [id number] 01/07/2023 [id number] / / [id number] documented as of this encounter Advance Directives Latest Code Status [...] the patient have Health Care Power of Job Training Supervisor? No Care Teams Filling Hand Relationship Specialty Start Date End Date Kerline Sotelo DO [address] [place] [facility] [place] [address] PCP - General Family Medicine 03/29/23 documented as of this encounter
--- OUTSIDE RECORDS SUMMARY | 2023-10-21 00:18 | External Medical Summary ---
Author Name Unknown Address Unknown Organization K01:[facility] [place] [address] [facility] [place] [address] Laboratory Report Ordering Provider Test Date Status SHANELLE CAMARILLO 10/08/2023 14:17:34 Final Observation Date Value Abnormality Reference (Units ) Status BUN 10/08/2023 14:17:34 69 Above high normal 6-20 (mg/dL) Final Creatinine 10/08/2023 14:17:34 4.0 Above high normal 0.6-1.2 (mg/dL) Final Glomerular filtration rate/1.73 sq M.predicted [Volume Rate/Area] in Serum, Plasma or Blood by Creatinine-based formula (CKD-EPI) 10/08/2023 14:17:34 16 Below low normal >=60 (mL/min) Final eGFR is calculated based on the CKD-EPI 2020 equation SODIUM 10/08/2023 14:17:34 136 135-146 (m mol/L) Final Potassium 10/08/2023 14:17:34 4.8 3.5-5.1 (m mol/L) Final Cl 10/08/2023 14:17:34 100 98-107 (mm ol/L) Final CO2 10/08/2023 14:17:34 21 Below low normal 22- 32 (mmol/L) Final Anion gap 10/08/2023 14:17:34 15 7-15 (mmol /L) Final Glucose 10/08/2023 14:17:34 244 Above high normal 70 -120 (mg/dL) Final Albumin 10/08/2023 14:17:34 4.6 3.8-5.0 (g /dL) Final AST (Aspartate aminotransferase) 10/08/2023 14:17:34 13 10-50 (U/L) Fin al Alk Phos 10/08/2023 14:17:34 131 Above high normal 35 -130 (U/L) Final Bilirubin, Total 10/08/2023 14:17:34 0.5 <=1 .2 (mg/dL) Final Calcium 10/08/2023 14:17:34 9.4 8.4-10.2 ( mg/dL) Final Protein 10/08/2023 14:17:34 7.1 6.0-8.3 (g /dL) Final ALT (Alanine aminotransferase) 10/08/2023 14:17:34 23 10-50 (U/L) Moise keller Performing Location [facility] [place] [address] [facility] [address]
--- OUTSIDE RECORDS SUMMARY | 2023-10-21 00:18 | External Medical Summary | Summary of Care ---
Author Name Unknown Organization [facility] Address [address] [place] [address] Phone [phone] Care Team Providers Care Textile Dyer Name Role Phone Kerline Sotelo DO Primary Care Provider Reason for Visit * Reason Onset Date Comments Appointment 07/20/202307/20 Encounter Details Date Type Department Care Team (Late st Contact Info) Description 07/20/2023 Telephone Family Practice [address] [place] [address] [place] [phone] Kerline Sotelo DO [address] [place], [place] [phone] Appointment (07/20) Allergies No known active allergiesdocumented as of this encounter (statuses as of 10/08/2023) Medications Medication Sig Dispensed Refills Start Date End Date Status ASPIRIN LOW DOSE 81 MG PO TABSIndications:Oth er specified prophylactic or treatment measure 1 TABLET DAILY 30 Tab 11 3 Active Blood Glucose Monitoring Suppl (ONETOUCH VERIO) w/Device KITIndications:Elev ated glucose Use up to 4 times a day E11.9 1 Kit 0 9 Active ONETOUCH DELICA LANCETS 33G MISC test blood sugars up to four times daily. ICD-10: E11.9 100 Each 11 0 Active Spacer/Aero-Holding Chambers DeviceIndications:D OE (dyspnea on exertion),Shortness of breath Use with inhaler. 1 Each 0 3 Active Additional Information Patient not taking.Reported on 09/17/2023 Melatonin 10 MG Oral Tablet Take 1 Tablet by mouth at bedtime. 0 Active Spironolactone 25 MG Oral Tablet (Aldactone) TAKE ONE-HALF TABLET BY MOUTH EVERY MORNING 45 Tablet 3 02/02/20 24 Active amLODIPine Besylate 10 MG Oral Tablet (Norvasc)Indication s:Essential hypertension with goal blood pressure less than 140/90 TAKE ONE TABLET BY MOUTH EVERY MORNING 90 Tablet 3 3 02/02/20 24 Active hydrALAZINE HCl 50 MG Oral Tablet (Apresoline) TAKE ONE AND ONE-HALF TABLETS BY MOUTH EVERY MORNING, ONE AND ONE-HALF TABLETS AT NOON AND ONE AND ONE-HALF TABLETS BEFORE BEDTIME 405 Tablet 3 3 12/12/19 24 Active Additional Information Patient taking differently: Oral BID (.AM/PM), 1.5 tabs, Reported on 09/02/2023 Isosorbide Mononitrate ER 60 MG Oral Tablet Extended Release 24 Hour (Imdur)Indications: ARRIAGA (dyspnea on exertion) TAKE ONE TABLET BY MOUTH EVERY MORNING 90 Tablet 3 3 12/07/19 Active Atorvastatin Calcium 40 MG Oral Tablet (Lipitor)Indication s:Other hyperlipidemia TAKE ONE TABLET BY MOUTH EVERY MORNING 90 Tablet 12/07/19 24 Active Insulin Pen Needle 31G X 6 MMIndications:Type 2 diabetes mellitus with hemoglobin A1c goal of less than 7.0% (HCC) USE WITH LANTUS ONCE DAILY OR DIRECTED 300 Each 11/20/19 24 Active Lantus SoloStar 100 UNIT/ML Subcutaneous Solution Pen-injectorIndicat ions:Type 2 diabetes mellitus with hemoglobin A1c goal of less than 7.0% (HCC) INJECT 18 UNITS UNDER THE SKIN ONCE DAILY 30 mL 11/20/19 24 Active Additional Information Patient taking differently: 34 Units Subcutaneous Daily(AM), Reported on 09/02/2023 Glucose Blood In Vitro Strip USE TO TEST BLOOD SUGAR FOUR TIMES A DAY 400 Strip 3 3 12/31/19 24 Active Lisinopril 40 MG Oral Tablet TAKE ONE TABLET BY MOUTH EVERY DAY IN THE MORNING 90 Tablet 2 3 11/26/19 24 Active Additional Information Patient taking differently: 20 mg, Reported on 02/18/2023 FreeStyle Juju 2 Sensor Use as directed. Every 14 days 2 Each 0 3 Active Allopurinol 100 MG Oral Tablet (Zyloprim) Take 2 Tablets by mouth in the morning. 180 Tablet 3 3 Active Sodium Bicarbonate 650 MG Oral TabletIndications:C hronic kidney disease, stage 4 (severe) (HCC) Take 2 Tablets by mouth in the morning and 2 Tablets before bedtime. 120 Tablet 11 3 Active Furosemide 40 MG Oral Tablet (Lasix)Indications: Labile blood pressure,Hypertensi ve kidney disease with stage 3b chronic kidney disease (HCC) Take 1.5 Tablets by mouth 2 times a day. 300 Tablet 3 3 Active Veltassa 8.4 GM Oral Packet (Patiromer Sorbitex Calcium)Indications :Hypertensive kidney disease with stage 3b chronic kidney disease (HCC) Mix 1 packet (8.4g) in water and drink the morning. 30 Each 5 3 Active Pantoprazole Sodium 40 MG Oral Tablet Delayed Release (Protonix)Indicatio ns:ARRIAGA (dyspnea on exertion),Shortness of breath TAKE ONE TABLET BY MOUTH EVERY EVENING 100 Tablet 3 3 Active Calcitriol 0.25 MCG Oral Capsule (Rocaltrol)Indicati ons:Hypertensive kidney disease with stage 3b chronic kidney disease (HCC) Take 1 Capsule by mouth in the morning. 30 Capsule 5 3 Active Gabapentin 100 MG Oral Capsule (Neurontin)Indicati ons:Sensory neuropathy TAKE ONE CAPSULE BY MOUTH THREE TIMES A DAY -- IN THE MORNING, AT NOON AND BEFORE BEDTIME 90 Capsule 5 3 08/05/20 23 Discontinu ed(Refill) Terazosin HCl 2 MG Oral CapsuleIndications: Hypertensive kidney disease with chronic kidney disease stage III (HCC),Thoracic aortic aneurysm without rupture (HCC),Hypertensive kidney disease with stage 3b chronic kidney disease (HCC),HTN, goal below 130/80,Labile blood pressure TAKE TWO CAPSULES BY MOUTH AT BEDTIME 180 Capsule 3 3 09/21/19 24 Discontinu ed(Refill) Clopidogrel Bisulfate 75 MG Oral Tablet (pLAVix)Indications :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 Please take 3 hours after AM meds. Should not be taken with other medications for full effectiveness.. 30 Each 1 3 08/13/19 24 Discontinu ed(Medicat ion List Clean Up) HYDROcodone-Acetami nophen 5-325 MG Oral Tablet Take 1 Tablet by mouth every 4 hours as needed for Pain, Mild. 20 Tablet 0 3 09/18/19 24 Discontinu ed(Medicat ion List Clean Up) documented as of this encounter (statuses as [...] Secondary hyperparathyroidism of renal origin Atherosclerosis of [place] ar teries of the extremities with ulceration [...] bilateral 05/28/2020 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[place] coronary artery without angina pectoris 05/28/2020 Diabetes [...] COVID-19 Whole Virus, [place] Vac, 2-Dose Series ([employer]) 06/10/2021,11/08/2020,10/08/2020 Pneumococcal Polysaccharide PPV23 (Pneumovax) 05/19/2013 Seasonal [...] No 02/21/2022 documented as of this encounter Miscellaneous Notes * Telephone Encounter - Yen Paz LPN - 07/20/2023 10:53 AM EST Patient returned call. Relayed results from US per request of Dr. Sotelo. Patient acknowledged understanding. Patient reports he is sick and unable to make today's appointment. Reports nausea, vomiting, diarrhea since yesterday. Denies fever but reports he has chills after vomiting. Encouraged tosip fluids/gatorade as able. Instructed to contact office if symptoms worsen. State he will comply. Will place f/u call tomorrow to check to see if he is feeling better. front desk administrator - please cancel appointment for today and please place on nurse visit schedule tomorrow for phone call. Thank you. * Telephone Encounter - Yen Paz LPN - 07/20/2023 10:14 AM EST Call placed to patient per request of Dr. Sotelo. No answer - message left to return call to [phone]. [address] Sotelo - review ultrasound results and see if patient would like to cancel appointment today based on results. documented in this encounter Plan of Treatment Upcoming Encounters Date Type Department Care Team (Latest Contact Info) Description 10/21/2023 9:00 AM EDT Hospital Encounter CRS Waiting [facility], Cardiac Recovery Suite Waiting Unit, [address] [place] [address] Rao Espinoza MD [address] [place] [address] 10/21/2023 9:00 AM EDT - 10/21/2023 10:00 AM EDT Surgery CRS Waiting [facility], Cardiac Recovery Suite Waiting Unit, [address] [place] [address] Rao Espinoza MD [address] [place] [address] CORONARY ANGIOGRAPHY W/LEFT HEART CATH 10/21/2023 9:00 AM EDT [facility] [address] [place] [address] [facility] Cardiac [facility] [address] [place] [address] 10/26/2023 1:00 PM EDT Office Visit Family Practice [facility], [place] [address] [place] [address] Kerline Sotelo DO 293 [place] [address] 10/27/2023 9:00 AM EDT Office Visit Podiatry [facility] [address] [facility] [place] [address] Angeles Arciniega DPM [address] [facility] [address] 11/27/2023 8:30 AM EDT Office Visit Cardiology, [facility] 132 [facility] [place] [address] Odilia Arce CRNP [address] [place] [address] 03/02/2024 10:30 AM EDT Imaging Vascular Lab, [facility] 2nd [facility], [address] [place] [address] 03/02/2024 11:30 AM EDT Imaging Vascular Lab, [facility] 2nd [facility], [place] [address] [facility] [place] [address] 03/09/2024 8:30 AM EDT Office Visit Vascular Surgery, [facility] [address] [facility] [place] [address] Erwin Olsen MD [address] [place] [address] Scheduled Procedures Name Priority Associated Diagnoses Date/Ti [...] this encounter Medical Devices Implanted Type Area Wood Scaler Device Identifier Shelf Expiration Date Model / Serial / Lot Supera Peripheral Stent Implanted:Qty : 1 on 05/01/2014 at OR [facility] Left: Popliteal Artery 11/08/2015 S-55-150 -120-P6 / / [id number] Description:[id number] Stent Complete Wy 7x150 - [id number] Implanted:Qty : 1 on 05/01/2014 at OR [facility] Left: SFA [employer] : VASCULAR 02/07/2016 [id number] / / [id number] Graft Stent Viab 0nde5ez - [id number] Implanted:Qty : 1 on 05/01/2014 at OR [facility] Left: SFA [employer] 03/09/2017 [id number] / / [id number] Stent Complete Sc 6x60 - [id number] Implanted:Qty : 1 on 07/23/2016 by Erwin Olsen MD at OR [facility] Left: Popliteal Artery [employer] : VASCULAR 02/25/2018 [id number] / / [id number] Stent Viabahn Implanted:Qty : 1 on 01/12/2017 by Erwin Olsen MD at OR [facility] Right: SFA 08/20/2018 [id number] / [id number] / Graft Stent Viab [id number] - [id number] - [id number] Implanted:Qty : 1 on 01/12/2017 by Erwin Olsen MD at OR [facility] Right: SFA [employer] 10/01/2019 [id number] 02A / [id number] / Stent Peripheral 7 Diam 150x20 - [id number] Implanted:Qty : 1 on 09/01/2019 by Erwin Olsen MD at OR [facility] Left: SFA [employer] : VASCULAR [id number] 01/12/2022 [id number] -020-150 / / [id number] [facility] Cls Cadn Mynx6/7fr - [id number] Implanted:Qty : 1 on 02/21/2022 by Erwin Olsen MD at OR [facility] CARDIOVASCULAR DYNAMICS [id number] 01/07/2023 [id number] / / [id number] documented as of this encounter Advance Directives [...] the patient have Health Care Power of Boiler Attendant? No Care Teams Textile Dyer Relationship Specialty Start Date End Date Kerline Sotelo DO [address] [place] [address] PCP - General Family Medicine 03/29/23 documented as of this encounter
--- OUTSIDE RECORDS SUMMARY | 2023-10-21 00:18 | External Medical Summary | Summary of Care ---
Author Name Unknown Organization [facility] Address [address] [place] [address] Phone [phone] Care Team Providers Care Internal Combustion Engineer Name Role Phone MarleneKerline chinchilla Ludy CASTELLANO Primary Care Provider + [phone] Reason for Visit * Reason Onset Date Comments Home Monitoring Alarm 10/12/2023 Encounter Details Date Type Department Care Team (Late st Contact Info) Description 10/12/2023 Home Monitoring Care Coordination [address] [place] [address] Brie Coelho LPN HTN, goal below 140/90* Allergies No known active allergiesdocumented as of this encounter (statuses as of 10/12/2023) Medications Medication Sig Dispensed Refills Start Date End Date Status ASPIRIN LOW DOSE 81 MG PO TABSIndications:Othe r specified prophylactic or treatment measure 1 TABLET DAILY 30 Tab 11 05/19/2013 Active Blood Glucose Monitoring Suppl (ONETOUCH VERIO) w/Device KITIndications:Chapman corwin glucose Use up to 4 times [...] 75 MG Oral Tablet (pLAVix)Indications: Atherosclerosis of navajo arteries of the extremities with ulceration (HCC) TAKE ONE TABLET BY MOUTH EVERY DAY IN THE MORNING 100 Tablet 1 09/30/2023 5 Active Carvedilol 25 MG Oral Tablet (Coreg)Indications:H ypertensive kidney disease with chronic kidney disease stage III (HCC) TAKE ONE AND ONE-HALF TABLETS BY MOUTH TWICE A DAY 270 Tablet 1 09/29/2023 5 Active documented as of this encounter (statuses as of 10/12/2023) Active Problems Problem Noted Date Diagnosed Date [...] Secondary hyperparathyroidism of renal origin Atherosclerosis of navajo ar teries of the extremities with ulceration [...] bilateral 05/28/2020 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 05/28/2020 Diabetes [...] as of this encounter (statuses as of 10/12/2023) Resolved Problems Problem Noted Date Diagnosed Date [...] as of this encounter (statuses as of 10/12/2023) Immunizations Name Administration Dates Next Due COVID-19 Whole Virus, Rollins Vac, 2-Dose Series ([email or web address]) 06/10/2021,11/08/2020,10/08/2020 Pneumococcal Polysaccharide PPV23 (Pneumovax) 05/19/2013 Seasonal [...] No 02/21/2022 documented as of this encounter Progress Notes * Brie Coelho LPN - 10/12/2023 8:25 AM EST Miguel Kunz [id number] Miguel Kunz is currently participating in the [facility] Hypertension Management Program and had a reading on 10/10/23 of 152/74. Pt has alerted for an Average BP over 7 days > 140/90 . Parameters are currently set as follows: Average BP over 7 days > 140/90 Singular Systolic BP Reading < 90 or > 180 Singular Diastolic BP Reading <50 or > 120 Patient is not reporting new symptoms or concerns. Please note, per text from pt today: Good morning, I am in [place]! I am feeling good, I have my cuff with me and blood pressures have not been bad, l don't know if you can get readings from here I am going to try now....will be here until Thursday Please review the recent history of home RPM readings in Epic Synopsis Flowsheets and work with your clinical staff if any additional actions or interventions are required. If you would like to customize the alert parameters and/or instructions for this patient, please let me know and we can have them changed. Thank you! Brie Coelho LPN documented in this encounter Plan of Treatment Upcoming Encounters Date Type Department Care Team (Latest Contact Info) Description 10/21/2023 9:00 AM EDT Hospital Encounter CRS Waiting [facility], Cardiac Recovery Suite Waiting Unit, [address] [place] [address] Rao Espinoza MD [address] [address] 10/21/2023 9:00 AM EDT - 10/21/2023 10:00 AM EDT Surgery CRS Waiting [facility], Cardiac Recovery Suite Waiting Unit, [address] [place] [address] Rao Espinoza MD [address] [place] [address] CORONARY ANGIOGRAPHY W/LEFT HEART CATH 10/21/2023 9:00 AM EDT Office Visit Cardiology [facility] [place] [address] [place] [address] [facility] Cardiac Recovery [facility] [address] [place] [address] 10/26/2023 1:00 PM EDT Office Visit Family Practice [address] [place] [address] [address] [place] [address] Kerline Sotelo DO [address] [place] [address] 10/27/2023 9:00 AM EDT Office [facility] Podiat[facility] [address] [facility] [address] [place] [facility]ga [facility]PM [address] [facility] [address] 11/27/2023 8:30 AM EDT Office Visit [facility] [place] [address] Odilia [facility]ce [facility] [place] [address] 03/02/2024 10:30 AM EDT Imaging Vascular Lab, [facility] II 2nd Floor, [place] [address] [facility] [place] [address] 03/02/2024 11:30 AM EDT Imaging Vascular Lab, [facility] II 2nd Floor, [place] [address] [facility] [place] [address] 03/09/2024 8:30 AM EDT Office Visit Vascular Surgery, [facility] [address] [place] [address] Erwin Olsen MD [address] [facility] [id number] Scheduled Procedures Name Priority Associated Diagnoses Date/Ti [...] 0 03/07/2022, 05/28/2020, Additional history exists GFR 04/07/2024 10/08/2023, 02/0 02/2024, 09/02/2023, Additional history exists Albumin/Creatinine Ratio 05/04/20242 023, 11/13/2022, 07/02/2022, Additional history exists Depression [...] this encounter Medical Devices Implanted Type Area Trapeze Performer Device Identifier Shelf Expiration Date Model / Serial / Lot Supera Peripheral Stent Implanted:Qty : 1 on 05/01/2014 at OR [facility] Left: Popliteal Artery 11/08/2015 [id number] / / [id number] Description:[id number] Stent Complete Sc 7x150 - [id number] Implanted:Qty : 1 on 05/01/2014 at OR [facility] Left: [facility] [employer] : VASCULAR 02/07/2016 [id number] / / [id number] Graft Stent Viab 2bld1lr - [id number] Implanted:Qty : 1 on 05/01/2014 at OR [facility] Left: [facility] [employer] 03/09/2017 [id number] / / [id number] Stent Complete Sc 6x60 - [id number] Implanted:Qty : 1 on 07/23/2016 by Erwin Olsen MD at OR [facility] Left: Popliteal Artery [employer] : VASCULAR 02/25/2018 [id number] / / [id number] Stent Viabahn Implanted:Qty : 1 on 01/12/2017 by Erwin Olsen MD at OR [facility] Right: [facility] 08/20/2018 [id number] / [id number] / Graft Stent Viab 4dud1xg - [id number] - [id number] Implanted:Qty : 1 on 01/12/2017 by Erwin Olsen MD at OR [facility] Right: [facility] [employer] 10/01/2019 [id number] / [id number] / Stent Peripheral 7 Diam 150x20 - [id number] Implanted:Qty : 1 on 09/01/2019 by Erwin Olsen MD at OR [facility] Left: SFA [employer] : VASCULAR [id number] 01/12/2022 [id number] -020-150 / / [id number] Device Vasc Cls Cadn Mynx6/7fr - [id number] Implanted:Qty : 1 on 02/21/2022 by Erwin Olsen MD at OR [facility] CARDIOVASCULAR DYNAMICS [id number] 01/07/2023 [id number] / / [id number] documented as of this encounter Visit Diagnoses Diagnosis HTN, goal below 140/90- Primary Unspecified essential hypertension Chest pain Chest pain, unspecified ARRIAGA (dyspnea [...] the patient have Health Care Power of Set Builder? No Care Teams Internal Combustion Engineer Relationship Specialty Start Date End Date Kerline Sotelo DO [address] [place] [address] PCP - General Family Medicine 03/29/23 documented as of this encounter
--- OUTSIDE RECORDS SUMMARY | 2023-10-21 00:19 | External Medical Summary | Summary of Care ---
Author Name Unknown Organization [facility] Address [address] [place] [address] Phone [phone] Care Team Providers Care Barrel Drainer Name Role Phone Kelrine Sotelo DO Primary Care Provider [phone] Reason for Visit * Reason Onset Date Comments Remote Patient Monitoring Alert 09/21/2023 Encounter Details Date Type Department Care Team (Late st Contact Info) Description 09/21/2023 Home Monitoring Care Coordination [address] [place] [address] HepTeresita escobedo LPN HTN, goal below 140/90* Allergies No known active allergiesdocumented as of this encounter (statuses as of 09/22/2023) Medications Medication Sig Dispensed Refills Start Date End Date Status ASPIRIN LOW DOSE 81 MG PO TABSIndications:Othe r specified prophylactic or treatment measure 1 TABLET DAILY 30 Tab 11 05/19/2013 Active Blood Glucose Monitoring Suppl (ONETOUCH VERIO) w/Device KITIndications:Orange corwin glucose Use up to 4 times [...] taking differently: 20 mg, Reported on 02/18/2023 Clopidogrel Bisulfate 75 MG Oral Tablet (pLAVix)Indications: 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 Every 14 days 2 Each 0 02/19/2023 Active Allopurinol 100 MG Oral Tablet (Zyloprim) Take 2 Tablets by mouth in the morning. 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 05/28/2020 Diabetes [...] as of this encounter (statuses as of 09/22/2023) Resolved Problems Problem Noted Date Diagnosed Date [...] as of this encounter (statuses as of 09/22/2023) Immunizations Name Administration Dates Next Due COVID-19 Whole Virus, Rollins Vac, 2-Dose Series ([employer]) 06/10/2021,11/08/2020,10/08/2020 Pneumococcal Polysaccharide PPV23 (Pneumovax) 05/19/2013 Seasonal [...] as of this encounter Progress Notes * Angeles Veliz, [facility] - 09/22/2023 12:16 PM EST [facility] - Hypertension Management This patient was contacted as part of the [facility] Nephrology 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 Blood Pressure Goal: 140/90 mmHg Type of Alert: Yellow Current Hypertension Medications: Spironolactone 25 mg 1/2 tab daily amlodpine 10 mg daily Furosemide 40 mg - 1.5 tabs BID Terazosin 2 mg - 2 cap daily Lisinopril 40 mg - 1 tab daily - patient taking 1/2 tab daily Carvedilol 25 mg 1.5 tabs BID Hydralazine 50 mg TID Experiencing symptoms related to elevated BP: No BP Readings from Last 3 Encounters: 09/18/23 160/76 09/17/23 128/55 09/02/23 128/68 Pulse Readings from Last 3 Encounters: 09/18/23 76 09/17/23 60 09/02/23 76 Recent Labs Units 09/16/23 1058 09/02/23 1445 08/13/23 1041 SODIUM - [facility] mmol/L 137 136 136 POTASSIUM - [facility] mmol/L 4.7 5.2* 4.5 CHLORIDE - [facility] mmol/L 101 102 101 CO2 - [facility] mmol/L 20* CREATININE - [facility] mg/dL 4.2* 3.5* 4.2* BUN - [facility] mg/dL 61* 59* 57* ASSESSMENT & PLAN: Blood pressures had been well controlled the last few weeks, but home and cardio BPs were high. Patient doesn't note any changes. MEDICATION CHANGES: titration of current medication dose Hypertension Medications: Spironolactone 25 mg 1/2 tab daily amlodipine 10 mg daily Furosemide 40 mg - 1.5 tabs BID Terazosin 2 mg - 2 cap daily Increase Lisinopril 40 mg - 1 tab daily Carvedilol 25 mg 1.5 tabs BID Hydralazine 50 mg TID HEALTH MAINTENANCE INTERVENTIONS: Labs: Ordered & Scheduled: Up to date FOLLOW UP: As needed for elevated blood pressure. 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 Blood Pressure Goal: 140/90 mmHg Type of Alert: Yellow Current Hypertension Medications: Hypertension Medications: Spironolactone 25 mg 1/2 tab daily amlodpine 10 mg daily Furosemide 40 mg BID Terazosin 2 mg 2 cap daily Lisinopril 40 mg daily Carvedilol 25 mg 1.5 tabs BID Hydralazine 50 mg TID 4:28 PM - called patient and LMOM. FOLLOW UP: Will call patient again tomorrow. Angeles Novak [facility] Clinical Pharmacist - Retail Seasonal Specialist Medication Therapy Management Clinic 09/21/2023, 4:26 PM * Teresita Blanchard LPN - 09/21/2023 2:10 PM EST Miguel Kunz [phone] Miguel Kunz is currently participating in the [facility] Hypertension Management Program and had a reading on 09/21/2023 of 169/71. Pt has alerted for an Average BP over 7 days > 140/90 . Parameters are currently set as follows: Average BP over 7 days > 140/90 Singular Systolic BP Reading < 90 or > 180 Singular Diastolic BP Reading <50 or > 120 Patient is not reporting new symptoms or concerns. The patient does have all his blood pressure medications and is taking them as prescribed. Please review the recent history of home RPM readings in Epic Synopsis Flowsheets and work with your clinical staff if any additional actions or interventions are required. If you would like to customize the alert parameters and/or instructions for this patient, please let me know and we can have them changed. Thank you! Teresita Blanchard LPN documented in this encounter Plan of Treatment Upcoming Encounters Date Type Department Care Team (Latest Contact Info) Description 10/21/2023 9:00 AM EDT Hospital Encounter CRS Waiting [facility], Cardiac Recovery Suite Waiting Unit, [address] [place] [address] Rao Espinoza MD [address] [place] [address] 10/21/2023 9:00 AM EDT - 10/21/2023 10:00 AM EDT Surgery CRS Waiting [facility], Cardiac Recovery Suite Waiting Unit, [address] [place] [address] Rao Espinoza MD [address] [place] [address] CORONARY ANGIOGRAPHY W/LEFT HEART CATH 10/21/2023 9:00 AM EDT [facility] [address] [place] [address] [facility] Cardiac [facility] [address] [place] [address] 10/26/2023 1:00 PM EDT Office Visit Family Practice [address] [facility] [place] [address] [place] [address] Kerline Sotelo DO [address] [place] [address] 10/27/2023 9:00 AM EDT Office Visit Podiatry [facility] [address] [facility] [place] [address] Angeles Arciniega DPM [address] [facility] [place] [address] 11/27/2023 8:30 AM EDT Office Visit Cardiology, [facility] [address] [facility] [place] [address] Odilia Arce CRNP [address] [place] [address] 03/02/2024 10:30 AM EDT Imaging Vascular Lab, [facility], [address] [place] [address] 03/02/2024 11:30 AM EDT Imaging Vascular Lab, [facility] [place] [address] [place] [address] 03/09/2024 8:30 AM EDT Office Visit Vascular Surgery, [facility] [address] [facility] [place] [address] Erwin Olsen MD [address] [place] [address] Scheduled Procedures Name Priority Associated Diagnoses Date/Ti me CORONARY ANGIOGRAPHY W/LEFT HEART CATH Chest pain ARRIAGA (dyspnea on exertion) 10/21/2023 9:00 AM EDT COLONOSCOPY FLEXIBLE PROXIMAL DIAGNOSTIC Recall History of colon polyps Special screening for malignant neoplasms, colon Health Maintenance Due Date Last Done Comments Pneumococcal Vaccine: 65+ Years (2 - PCV) 05/19/2014 05/19/2013 Hepatitis B (1 of 3 - Risk 3-dose series) 2017 Zoster Vaccines (2 of 2) 04/12/2018 02/15/2018 [...] this encounter Medical Devices Implanted Type Area Restaurant District Manager Device Identifier Shelf Expiration Date Model / Serial / Lot Graft Stent Viab [id number] - [id number] Implanted:Qty : 1 on 05/01/2014 at OR [facility] Left: SFA [employer] 03/09/2017 [id number] / / [id number] Stent Complete Ri 6x60 - [id number] Implanted:Qty : 1 on 07/23/2016 by Erwin Olsen MD at OR [facility] Left: Popliteal Artery [employer] : VASCULAR 02/25/2018 [id number] / / [id number] Graft Stent Viab [id number] - [id number] - [id number] Implanted:Qty : 1 on 01/12/2017 by Erwin Olsen MD at OR [facility] Right: SFA [employer] 10/01/2019 [id number] / [id number] / Stent Peripheral 7 Diam 150x20 - [id number] Implanted:Qty : 1 on 09/01/2019 by Erwin Olsen MD at [facility] Left: SFA [employer] : VASCULAR [id number] 01/12/2022 [id number] -020-150 / / [id number] Device Vasc Cls Cadn Mynx6/7fr - [id number] Implanted:Qty : 1 on 02/21/2022 by Erwin Olsen MD at OR [facility] CARDIOVASCULAR DYNAMICS [id number] 01/07/2023 [id number] / / [id number] documented as of this encounter Visit Diagnoses [...] the patient have Health Care Power of Alley Tender? No Care Teams Barrel Drainer Relationship Specialty Start Date End Date Kerline Sotelo DO [address] [place] [address], [place] [address] PCP - General Family Medicine 03/29/23 documented as of this encounter
--- OUTSIDE RECORDS SUMMARY | 2023-10-21 00:19 | External Medical Summary | Summary of Care ---
Author Name Unknown Organization [facility] Address [address] [place] [address] Phone [phone] Care Team Providers Care Youth Court Judge Name Role Phone Kerline Sotelo DO Primary Care Provider + [phone] Reason for Visit * Reason Comments Medication Refill Encounter Details Date Type Department Care Team ([facility] st Contact Info) Description 09/29/2023 Refill Nephrology, [facility] [address] [place] [address] Kerline Sotelo DO [address] [place] [address] Hypertensive kidney disease with chronic kidney disease stage III (HCC) Allergies No known active allergiesdocumented as of this encounter (statuses as of 09/29/2023) Medications Medication Sig Dispensed Refills Start Date [...] BY MOUTH EVERY MORNING 45 Tablet 3 3 02/02/20 24 Active amLODIPine Besylate 10 MG Oral Tablet (Norvasc)Indication s:Essential hypertension with goal blood pressure less than 140/90 TAKE ONE TABLET BY MOUTH EVERY MORNING 90 Tablet 3 02/02/20 24 Active hydrALAZINE HCl 50 MG Oral Tablet (Apresoline) TAKE ONE AND ONE-HALF TABLETS BY MOUTH EVERY MORNING, ONE AND ONE-HALF TABLETS AT NOON AND ONE AND ONE-HALF TABLETS BEFORE BEDTIME 405 Tablet 3 12/12/19 24 Active Additional Information Patient taking differently: Oral BID (.AM/PM), 1.5 tabs, Reported on 09/02/2023 Isosorbide Mononitrate ER 60 MG Oral Tablet Extended Release 24 Hour (Imdur)Indications: ARRIAGA (dyspnea on exertion) TAKE ONE TABLET BY MOUTH EVERY MORNING 90 Tablet 3 12/07/19 24 Active Atorvastatin Calcium 40 MG Oral Tablet [...] THE SKIN ONCE DAILY 30 mL 3 11/20/19 24 Active Additional Information Patient taking [...] 02/18/2023 Clopidogrel Bisulfate 75 MG Oral Tablet (pLAVix)Indications :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) TAKE ONE TABLET BY MOUTH EVERY DAY IN THE MORNING 100 Tablet 3 3 10/07/19 24 Active FreeStyle Juju 2 Sensor Use as [...] AND BEFORE BEDTIME 90 Capsule 5 3 08/04/20 24 Active Terazosin HCl 2 MG Oral CapsuleIndications: Hypertensive kidney disease with chronic kidney disease stage III (HCC),Thoracic aortic aneurysm without rupture (HCC),Hypertensive kidney disease with stage 3b chronic kidney disease (HCC),HTN, goal below 130/80,Labile blood pressure TAKE TWO CAPSULES BY MOUTH AT BEDTIME 180 Capsule 3 4 09/20/19 25 Active Carvedilol 25 MG Oral Tablet (Coreg)Indications: Hypertensive kidney disease with chronic kidney disease stage III (HCC) TAKE ONE AND ONE-HALF TABLETS BY MOUTH TWICE A DAY 270 Tablet 1 4 09/28/19 25 Active Carvedilol 25 MG Oral Tablet (Coreg)Indications: Hypertensive kidney disease with chronic kidney disease stage III (HCC) TAKE ONE AND ONE-HALF TABLETS BY MOUTH TWICE A DAY 270 Tablet 1 3 09/29/19 24 Discontinu ed(Refill) documented as of this encounter (statuses as of 09/29/2023) Active Problems Problem Noted Date Diagnosed Date [...] Secondary hyperparathyroidism of renal origin Atherosclerosis of [place] ar teries of the extremities with ulceration [...] bilateral 05/28/2020 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[place] coronary artery without angina pectoris 05/28/2020 Diabetes [...] as of this encounter (statuses as of 09/29/2023) Resolved Problems Problem Noted Date Diagnosed Date [...] as of this encounter (statuses as of 09/29/2023) Immunizations Name Administration Dates Next Due COVID-19 Whole Virus, Rollins Vac, 2-Dose Series ([email or web address]) 06/10/2021,11/08/2020,10/08/2020 Pneumococcal Polysaccharide PPV23 (Pneumovax) 05/19/2013 [...] encounter Miscellaneous Notes * Telephone Encounter - Lobo Patel MD - 09/29/2023 4:24 PM ESTSigned Prescriptions: Disp Refills Carvedilol 25 MG Oral Tablet (Coreg) 270 Ta*1 Sig: TAKE ONE AND ONE-HALF TABLETS BY MOUTH TWICE A DAY Authorizing Provider: LOBO PATEL * Telephone Encounter - Leonela Burleson RN - 09/29/2023 11:15 AM ESTPending Prescriptions: Disp Refills Carvedilol 25 MG Oral Tablet (Coreg) 270 Ta*1 Sig: TAKE ONE AND ONE-HALF TABLETS BY MOUTH TWICE A DAY * Telephone Encounter - Leonela Burleson RN - 09/29/2023 11:13 AM EST Prescription request received from pharmacy pending. Please authorize. Last OV 09/17/23 Next OV 05/05/24 documented in this encounter Plan of Treatment Upcoming Encounters Date Type Department Care Team (Latest Contact Info) Description 10/21/2023 9:00 AM EDT Hospital Encounter CRS Waiting [facility], Cardiac Recovery Suite Waiting Unit, [address] [place] [address] Rao Espinoza MD [address] [place] [address] 10/21/2023 9:00 AM EDT - 10/21/2023 10:00 AM EDT Surgery CRS Waiting [facility], Cardiac Recovery Suite Waiting Unit, [address] [place] [address] Rao Espinoza MD [address] [place] [address] CORONARY ANGIOGRAPHY W/LEFT HEART CATH 10/21/2023 9:00 AM EDT Office Visit Cardiology [facility] [address] [place] [address] [facility]iac [facility] [address] [place] [address] 10/26/2023 1:00 PM EDT Office Visit Family Practice [address] [facility] [address] [place] [id number] Kerline Sotelo DO [address] [place] [address] 10/27/2023 9:00 AM EDT Office Visit Podiatry [facility] [address] [facility] [place] [address] [place], [place] [address] [facility] [place], [place] [address] 11/27/2023 8:30 AM EDT Office Visit Cardiology, [facility] [address] [facility] [place] [address] Odilia Arce CRNP [address] [place] [address] 03/02/2024 10:30 AM EDT Imaging Vascular Lab, [facility], [place] [address] [facility] [place] [address] 03/02/2024 11:30 AM EDT Imaging Vascular Lab, [address], [place] [address] [facility] [place] [address] 03/09/2024 8:30 AM EDT Office Visit Vascular Surgery, [facility] [address] [facility] [place] [address] Erwin Olsen MD [address] [place] [address] Scheduled Procedures Name Priority Associated Diagnoses Date/Ti [...] this encounter Medical Devices Implanted Type Area Sanitation Manager Device Identifier Shelf Expiration Date Model / Serial / Lot Supera Peripheral Stent Implanted:Qty : 1 on 05/01/2014 at OR [facility] Left: Popliteal Artery 11/08/2015 [id number] / / [id number] Description:[id number] Stent Complete Ia 7x150 - [id number] Implanted:Qty : 1 on 05/01/2014 at OR [facility] Left: SFA [employer] : VASCULAR 02/07/2016 [id number] / / [id number] Graft Stent Viab [id number] - [id number] Implanted:Qty : 1 on 05/01/2014 at OR [facility] Left: SFA [employer] 03/09/2017 [id number] / / [id number] Stent Complete Ia 6x60 - [id number] Implanted:Qty : 1 on 07/23/2016 by Erwin Olsen MD at OR [facility] Left: Popliteal Artery [employer] : VASCULAR 02/25/2018 [id number] / / [id number] Stent Viabahn Implanted:Qty : 1 on 01/12/2017 by Erwin Olsen MD at OR [facility] Right: SFA 08/20/2018 [id number] / [id number] / Graft Stent Viab [id number] - [id number] - [id number] Implanted:Qty : 1 on 01/12/2017 by Erwin Olsen MD at OR [facility] Right: SFA [employer] 10/01/2019 [id number] / [id number] / Stent Peripheral 7 Diam 150x20 - [id number] Implanted:Qty : 1 on 09/01/2019 by Erwin Olsen MD at OR [facility] Left: SFA [employer] : VASCULAR [id number] 01/12/2022 [id number] / / [id number] Device Vas Cls Cadn Mynx6/7fr - [id number] Implanted:Qty : 1 on 02/21/2022 by Erwin Olsen MD at OR [facility] [employer] [id number] 01/07/2023 [id number] / / [id number] documented as of this encounter Visit Diagnoses Diagnosis Hypertensive kidney disease with chronic kidney disease stage III (HCC) Unspecified hypertensive kidney disease with chronic kidney disease stage I through stage IV, or unspecified Chest pain Chest pain, unspecified ARRIAGA (dyspnea [...] the patient have Health Care Power of Custom Motorcycle Painter? No Care Teams Youth Court Judge Relationship Specialty Start Date End Date Kerline Sotelo DO [address] [place] [address] PCP - General Family Medicine 03/29/23 documented as of this encounter
--- OUTSIDE RECORDS SUMMARY | 2023-10-21 00:19 | External Medical Summary | Summary of Care ---
Author Name Unknown Organization [facility] Address [address] [place] [address] Phone [phone] Care Team Providers Care Tape Controlled Machine Stitcher Name Role Phone MarleneStormy chinchillazully [place] DO Primary Care Provider + [phone] Reason for Visit * Reason Comments Return Visit Chronic Kidney Disease (CKD) Hypertension With DM Encounter Details Date Type Department Care Team (Late st Contact Info) Description 09/17/2023 3:30 PM EST Office Visit Nephrology, Roscoe Ramírez [address] [facility] [place] [address] ZeGeetha serrano PA-C [address] [facility] [place] [address] Chronic kidney disease, stage 4 (severe) (HCC)*; Persistent proteinuria; HTN, goal below 140/90; Coronary artery disease involving [place] heart, unspecified vessel or lesion type, unspecified whether angina present; Gout, unspecified cause, unspecified chronicity, unspecified site; Hyperphosphatemia Allergies No known active allergiesdocumented as of this encounter (statuses as of 09/23/2023) Medications Medication Sig Dispensed Refills Start Date End Date Status ASPIRIN LOW DOSE 81 MG PO TABSIndications:Oth er specified prophylactic or treatment measure 1 TABLET DAILY 30 Tab 11 3 Active Blood Glucose Monitoring Suppl (ONETOUCH VERIO) w/Device KITIndications:Elev ated glucose Use up to 4 times a day E11.9 1 Kit 0 9 Active ONETOUCH DELICA LANCETS 33G [facility] test blood sugars up to four times [...] EVERY MORNING 90 Tablet 3 3 12/07/19 24 Active Atorvastatin Calcium 40 MG Oral Tablet (Lipitor)Indication s:Other hyperlipidemia TAKE ONE TABLET BY MOUTH EVERY MORNING 90 Tablet 3 12/07/19 24 Active Insulin Pen Needle 31G X 6 MMIndications:Type 2 diabetes mellitus with hemoglobin A1c goal of less than 7.0% (HCC) USE WITH LANTUS ONCE DAILY OR DIRECTED 300 Each 3 11/20/19 24 Active Lantus SoloStar 100 UNIT/ML [...] 75 MG Oral Tablet (pLAVix)Indications :Atherosclerosis of [place] arteries of the extremities with ulceration (HCC) TAKE ONE TABLET BY MOUTH EVERY DAY IN THE MORNING 100 Tablet 3 3 10/07/19 24 Active FreeStyle Juju 2 Sensor Use as directed. Every 14 days 2 Each 0 3 Active Allopurinol 100 MG Oral Tablet (Zyloprim) Take 2 Tablets by mouth in the morning. 180 Tablet 3 3 Active Carvedilol 25 MG Oral Tablet (Coreg)Indications: Hypertensive kidney disease with chronic kidney disease stage III (HCC) TAKE ONE AND ONE-HALF TABLETS BY MOUTH TWICE A DAY 270 Tablet 1 3 03/23/20 24 Active Sodium Bicarbonate 650 MG Oral TabletIndications:C [...] Capsule 3 3 09/21/19 24 Discontinu ed(Refill) HYDROcodone-Acetami nophen 5-325 MG Oral Tablet Take 1 Tablet by mouth every 4 hours as needed for Pain, Mild. 20 Tablet 0 3 09/18/19 24 Discontinu ed(Medicat ion List Clean Up) documented as of this encounter (statuses as of 09/23/2023) Active Problems Problem Noted Date Diagnosed Date [...] Secondary hyperparathyroidism of renal origin Atherosclerosis of [place] ar teries of the extremities with ulceration [...] bilateral 05/28/2020 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[place] coronary artery without angina pectoris 05/28/2020 Diabetes [...] as of this encounter (statuses as of 09/23/2023) Resolved Problems Problem Noted Date Diagnosed Date [...] as of this encounter (statuses as of 09/23/2023) Immunizations Name Administration Dates Next Due COVID-19 Whole Virus, Rollins Vac, 2-Dose Series (Ausra) 06/10/2021,11/08/2020,10/08/2020 Pneumococcal Polysaccharide PPV23 (Pneumovax) 05/19/2013 Seasonal [...] on file documented as of this encounter Last Filed Vital Signs Vital Sign Reading Time Taken Comments Blood Pressure 128/55 09/17/2023 3:35 PM EST Pulse 60 09/17/2023 3:35 PM EST Temperature 36.8 C (98.2 F) 09/17/2023 3:33 PM ES T Respiratory Rate 20 09/17/2023 3:33 PM EST Oxygen Saturation 97% 09/17/2023 3:33 PM EST Inhaled Oxygen Concentration - - Weight 91.3 kg (201 lb 3.2 oz) 09/17/2023 3:33 P M EST Height - - Body Mass Index 28.06 08/19/2023 8:11 AM EST documented in this encounter Functional Status Functional Status Response [...] as of this encounter Progress Notes * Geetha Morales PA-C - 09/17/2023 3:30 PM EST NEPHROLOGY CLINIC NOTE [address] [place] [address] Patient Name: Miguel Heller Patient Active Problem List Diagnosis Code HTN, goal below 140/90 I10 Vitamin D deficiency E55.9 Thoracic aortic aneurysm ([facility]) I71.20 Family history of ischemic heart disease Z82.49 Eczema L30.9 Nodule of flexor tendon sheath M67.90 PAD (peripheral artery disease) ([facility]) I73.9 Urinary retention R33.9 BPH with obstruction/lower urinary tract symptoms N40.1, N13.8 DDD (degenerative disc disease), cervical M50.30 Diabetes mellitus with nephropathy ([facility]) E11.21 Diabetes mellitus type 2 with peripheral artery disease ([facility]) E11.51 Aortic root dilatation ([facility]) I77.810 Diabetes mellitus, insulin dependent (IDDM), controlled [id number] Type 2 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, bilateral ([facility]) E11.3313 Atherosclerotic heart disease of [place] coronary artery without angina pectoris I25.10 Hypertensive kidney disease with stage 3b chronic kidney disease ([facility]) I12.9, N18.32 Depression F32.A Chronic kidney disease, stage 4 (severe) ([facility]) N18.4 Secondary hyperparathyroidism of renal origin ([facility]) N25.81 Atherosclerosis of [place] arteries of the extremities with ulceration ([facility]) I70.25 Multinodular goiter E04.2 Major depressive disorder with single episode F32.9 Type 2 diabetes mellitus with diabetic neuropathy, with long-term current use of insulin ([facility]) E11.40, Z79.4 Diabetes mellitus ([facility]) E11.9 Dyslipidemia, goal LDL below 70 E78.5 Renal osteodystrophy N25.0 Multiple thyroid nodules E04.2 History of amputation of hallux ([facility]) Z89.419 Cardiac asthma ([facility]) I50.1 Chronic diastolic heart failure ([facility]) I50.32 Type 2 diabetes mellitus with other specified complication (HCC) E11.69 Diabetic ulcer of toe of left foot associated with type 2 diabetes mellitus (HCC) E11.621, L97.529 Uncomplicated asthma J45.909 BACKGROUND: 68 year old male presents for f/u of high risk > 1 gm proteinuric CKD 4/r, resistantand labile HTN, and stones . PMH includes PAD left leg stent July, and September, right lower extremity angioplasty01/2017 recurrent SFE stenosis and ongoing PAD procedures including Aug 2019, R popliteal artery angioplasty mid February 2022 (Dr Olsen); diabetes diagnosed 1998 on insulin, history of remote heavy alcohol abuse, thoracic aortic aneurysm July, which forced him to retire due to inability tolift heavy weights. Hx recurrent Staph aureus UTI. Hx of lung nodules followed annually -Dec, 2015 UTI presented with gross hematuria for about 5 days as well as fever treated with a course of Bactrim. Followed for a time with Urology for this -Admitted [facility] for bacteremia related to toe ulcer in 08/2017. Toe healed. -Obs'd [facility] for acute pancreatitis in December 2018; had JEROME w/ creat 2.5. -Fall 2019 Has L knee bursitis and R elbow effusion. Knee painful intermittently for 1/2 day every 3-4 days>>resolved w/ tx of lyme dz Obs'd w/ orthostatic sx and prerenal JEROME late December 2019 [facility] -- presenting creatinine 3.2, down to 2.6 by d/c next day. Lasix lowered from 40 mg bid to 40 mg daily; also spironolactone MWF instead of daily. Hydralazine reduced by PCP post d/c and spironolactone stopped. Spring/summer 2019 had BP meds titrated d/t orthostatics in cardiology clinic and d/t challenges atwork >> toward end of shift lightheaded and even "stumbly." Still stumbly and light headed just going from living room to bedroom at home at times at 02/2020 clinic visit w/ me; sbp had been until recently at that time been in 90s w/ standing -- now 100s mostly. Able to drink fluids at work and does - water or unsweetened tea. By May 2020, hydralazine dose was being raised again d/t SBP 170s w/ chest tightness/palpitations. Early 2020 >> HTN uncontrolled. Early 2020 >> course of doxy for Lyme dz. CKD to ESRD Status CKD Education: follows w/ CKD [employer] Modality Education: spring 2022 Preferred Modality: PD; s/p +home visit February 2023 Access Surgeon Referral: Dr Singh; follows w/ G vascular Dr Olsen Access Placed: not todate; neph deferred PD cath for now; also will need AVF eval Transplant Listing: [facility] declined fall 2022 d/t arterial/vascular calcifications Follows w/ remote BP monitoring > SBP average on remote home BP late November 2022 was high 140s and low dose spironolactone added; tolerating so far though some transient sx /orthostasis just after starting. Drinks only unsweetened tea or water. Worked in a [employer]. Acc by partner Rachelle to many visits. Follows w/ PCP for DM. Can't golf/walk like he wants to and starting to upset him. Today 09/17/23 Denies any recent hospitalizations, procedures or infections. Patient cont with remote bp program - he reports bp has been elevated in the pass few days Reports bp readings of 170/80 prior to bp med use. He reports he has noticed after taking meds and walking bp goes down Patient reports drinking 7-9 x12 oz of water daily. 1-3 cup of decaf coffee Mainly cooks at home does not add any salt to foods but admits to not reading labels- Reports partner Rachelle has been out of town for the pass 5 wks so he might have slipped with the eating Reports had stopped Veltassa due to cost but now covered by insurance and started taking again 2-3 wks ago- Has now been taking every afternoon Reports Cardiac cath has not yet been completed. Cardiology has not yet scheduled. Concerned with possible effects on kidney Patient reports he does want to have the procedure done and is aware of the risk for his kidney He reports no longer working at the [employer] due to SOB and fatigue Patient reports he would still be interested in PD REVIEW OF SYSTEMS General: No fatigue, No change in weight Head: No significant headache Respiratory: No cough,No wheezing,+ shortness of breath Cardiovascular:+chest pain- on occasion, No palpitations, and No syncope Gastrointestinal: No nausea, vomiting, diarrhea No blood in stools No abdominal pain Urinary: No dysuira, No hematuria. No flank pain Musculoskeletal: No edema Skin: No itching All other systems were reviewed and were negative. Current Outpatient Medications Medication Sig Dispense Refill ASPIRIN LOW DOSE 81 MG PO TABS 1 TABLET DAILY 30 Tab 11 Blood Glucose Monitoring Suppl (Mingxieku) w/Device KIT Use up to 4 times a day E11.9 1 Kit 0 Protective SystemsTOO&P Pro DELSpinGo LANCETS 33G MISC test blood sugars up to four times daily. ICD- 10: E11.9 100 Each 11 Spacer/Aero-Holding Chambers Device Use with inhaler. 1 Each 0 Melatonin 10 MG Oral Tablet Take 1 Tablet by mouth at bedtime. Spironolactone 25 MG Oral Tablet (Aldactone) TAKE ONE-HALF TABLET BY MOUTH EVERY MORNING 45 Tablet 3 amLODIPine Besylate 10 MG Oral Tablet (Norvasc) TAKE ONE TABLET BY MOUTH EVERY MORNING 90 Tablet 3 hydrALAZINE HCl 50 MG Oral Tablet (Apresoline) TAKE ONE AND ONE-HALF TABLETS BY MOUTH EVERY MORNING, ONE AND ONE-HALF TABLETS AT NOON AND ONE AND ONE-HALF TABLETS BEFORE BEDTIME (Patient taking differently: Take by mouth 2 times a day. 1.5 tabs) 405 Tablet 3 Isosorbide Mononitrate ER 60 MG Oral Tablet Extended Release 24 Hour (Imdur) TAKE ONE TABLET BY MOUTH EVERY MORNING 90 Tablet 3 Atorvastatin Calcium 40 MG Oral Tablet (Lipitor) TAKE ONE TABLET BY MOUTH EVERY MORNING 90 Tablet 3 Insulin Pen Needle 31G X 6 MM USE WITH LANTUS ONCE DAILY OR DIRECTED 300 Each 3 Lantus SoloStar 100 UNIT/ML Subcutaneous Solution Pen-injector INJECT 18 UNITS UNDER THE SKIN ONCE DAILY (Patient taking differently: Inject 34 Units under the skin in the morning.) 30 mL 3 Glucose Blood In Vitro Strip USE TO TEST BLOOD SUGAR FOUR TIMES A DAY 400 Strip 3 Terazosin HCl 2 MG Oral Capsule TAKE TWO CAPSULES BY MOUTH AT BEDTIME 180 Capsule 3 Lisinopril 40 MG Oral Tablet TAKE ONE TABLET BY MOUTH EVERY DAY IN THE MORNING (Patient taking differently: 0.5 Tablets.) 90 Tablet 2 Clopidogrel Bisulfate 75 MG Oral Tablet (pLAVix) TAKE ONE TABLET BY MOUTH EVERY DAY IN THE MORNING 100 Tablet 3 FreeStyle Juju 2 Sensor Use as directed. Every 14 days 2 Each 0 Allopurinol 100 MG Oral Tablet (Zyloprim) Take 2 Tablets by mouth in the morning. 180 Tablet 3 Carvedilol 25 MG Oral Tablet (Coreg) TAKE ONE AND ONE-HALF TABLETS BY MOUTH TWICE A DAY 270 Tablet 1 Sodium Bicarbonate 650 MG Oral Tablet Take 2 Tablets by mouth in the morning and 2 Tablets before bedtime. 120 Tablet 11 Furosemide 40 MG Oral Tablet (Lasix) Take 1.5 Tablets by mouth 2 times a day. 300 Tablet 3 HYDROcodone-Acetaminophen 5-325 MG Oral Tablet Take 1 Tablet by mouth every 4 hours as needed for Pain, Mild. 20 Tablet 0 Veltassa 8.4 GM Oral Packet (Patiromer Sorbitex Calcium) Mix 1 packet (8.4g) in water and drink themorning. 30 Each 5 Pantoprazole Sodium 40 MG Oral Tablet Delayed Release (Protonix) TAKE ONE TABLET BY MOUTH EVERY EVENING 100 Tablet 3 Calcitriol 0.25 MCG Oral Capsule (Rocaltrol) Take 1 Capsule by mouth in the morning. 30 Capsule 5 Gabapentin 100 MG Oral Capsule (Neurontin) TAKE ONE CAPSULE BY MOUTH THREE TIMES A DAY -- IN THE MORNING, AT NOON AND BEFORE BEDTIME 90 Capsule 5 No current facility-administered medications for this visit. PHYSICAL EXAMINATION Last 4 BP Readings: BP Readings from Last 4 Encounters: 09/02/23 128/68 08/19/23 136/58 08/19/23 130/62 08/13/23 120/56 Last 3 Weights: Wt Readings from Last 3 Encounters: 09/02/23 90 kg (198 lb 8 oz) 08/19/23 87.1 kg (192 lb) 08/19/23 87.2 kg (192 lb 3.2 oz) BP 139/54 (BP Site: Right Arm, BP Position: Sitting, BP Cuff Size: Regular) | Pulse 54 | Temp 36.8 C (98.2 F) (Tympanic) | Resp 20 | Wt 91.3 kg (201 lb 3.2 oz) | SpO2 97% | BMI 28.06 kg/m | BSA2.14 m Wt Readings from Last 1 Encounters: 09/02/23 90 kg (198 lb 8 oz) General appearance: alert, no apparent distress. HEAD: Normocephalic, No masses, lesions, tenderness Respiratory: clear to auscultation, no rhonchi, and no wheezes Heart: regular rate and regular rhythm Abdomen: abdomen soft, non-tender, and no CVA tenderness EXTREMITIES: No edema, No cyanosis or clubbing Skin: skin color, texture, turgor are normal NEURO: alert & oriented x 3 with fluent speech, no focal motor/sensory deficits No tremor Patient is a reliable historian of events LABS: Latest Reference Range & Units 04/09/23 09:54 05/04/23 14:40 07/01/23 13:03 08/13/23 10:41 09/02/23 14:45 09/16/23 10:58 Sodium 135 - 146 mmol/L 139 134 (L) 136 136 136 137 Potassium 3.5 - 5.1 mmol/L 4.1 4.8 5.1 4.5 5.2 (H) 4.7 Chloride 98 - 107 mmol/L 100 102 101 101 102 101 CO2 22 - 32 mmol/L 22 20 (L) 23 20 (L) 22 22 BUN 6 - 20 mg/dL 55 (H) 47 (H) 57 (H) 57 (H) 59 (H) 61 (H) Creatinine 0.6 - 1.2 mg/dL 4.0 (H) 3.5 (H) 4.1 (H) 4.2 (H) 3.5 (H) 4.2 (H) Estimated Glomerular Filtration Rate >=60 mL/min 16 (L) 18 (L) 15 (L) 15 (L) 19 (L) 15 (L) Anion Gap 7 - 15 mmol/L 17 (H) 12 12 15 12 14 Glucose 70 - 120 mg/dL 132 (H) 322 (H) 227 (H) 203 (H) 242 (H) 194 (H) Calcium 8.4 - 10.2 mg/dL 9.7 9.5 9.2 9.2 9.3 9.6 Phosphorus 2.5 - 4.8 mg/dL 4.3 3.8 5.2 (H) 5.0 (H) 5.4 (H) (L): Data is abnormally low (H): Data is abnormally high Latest Reference Range & Units 06/19/22 11:45 07/02/22 10:39 11/13/22 14:28 04/09/23 10:00 05/04/23 14:40 Albumin / Creatinine Ratio, Urine <30 mg/g Creat 4,344 (H) 3,264 (H) 1,486 (H) 578 (H) ALBUMIN / CREATININE RATIO, URINE Rpt ! Rpt ! Rpt ! Rpt ! Protein/ Creatinine Ratio, Urine <150 mg/g 701 (H) (H): Data is abnormally high !: Data is abnormal Rpt: View report in Results Review for more information Latest Reference Range & Units 11/23/20 09:44 01/09/21 09:34 12/19/21 13:43 12/10/22 14:17 12/18/22 08:24 09/02/23 14:45 Uric Acid 3.4 - 7.0 mg/dL 6.9 6.1 6.4 7.5 (H) 8.0 (H) 5.4 (H): Data is abnormally high ASSESSMENT/PLAN: The patient's most recent labs (from this month) were reviewed and the assessment/plan is as follows: Progressive CKD 4 bordering on CKD 5. Tendency to hyperkalemia; hyperphosphatemia noted. Patient back with veltassa in the pass few wks. His renal function has worsened though we have made significant headway on albuminuria Chronic kidney disease, stage 4 (severe) (HCC) (Primary) Persistent proteinuria HTN, goal below 140/90 HTN labile -elevated on remote monitoring; meets criteria for resistant HTN ->proteinuria dramatically improved w/ better bp control, though still well above goal no longernephrotic -cont lisinopril, spironolactone, amlodipine, lasix, hydralazine, coreg -cont remote bp monitoring Coronary artery disease involving [place] heart, unspecified vessel or lesion type, unspecified whether angina present Cardiac Cath? Will reach out to cardio regarding status. Discussed risk vs benefits and patient comprehends and asked questions He would like to proceed Gout, unspecified cause, unspecified chronicity, unspecified site Stable at 5.4 cont current dosing of allopurinol Hyperphosphatemia Chronic in nature -Cont with low phos diet.. Will cont to monitor Standing labs placed. Cont with frequent labs every 6 wks No changes to meds Pt preference is to start PD if needed -for PD cath placement Dr Singh when need arises; he estw/ her 04/2023 Will reach out to Cards - pt with appt tmrw Cont to monitor weight Avoid medicines like aleve, advil, ibuprofen, aspirin more than 81 mg daily and other NSAIDS which are not good for kidney patients. Take only tylenol (acetaminophen) up to 2000 mg daily as needed for pain or as directed by your primary care provider. Reviewed previous status of kidney function and goals of care. All questions were answered. Check-out note: 3 month Mine ( appt needed) Geetha Morales PA-C Nephrology, [address] [address] documented in this encounter Nursing Notes * Madeline Springer LPN - 09/17/2023 3:32 PM EST Patient identified by verbal name and date of . No recent inpatient hospital stays or ED visits Labs 09/16/23 pt is on remote BP program Denies SOB or lower extremity edema documented in this encounter Plan of Treatment Upcoming Encounters Date Type Department Care Team (Latest Contact Info) Description 10/21/2023 9:00 AM EDT Hospital Encounter CRS Waiting GM, Cardiac Recovery Suite Waiting Unit, [address] [place] [address] Rao Espinoza MD [address] [place] [address] 10/21/2023 9:00 AM EDT - 10/21/2023 10:00 AM EDT Surgery CRS Waiting GM, Cardiac Recovery Suite Waiting Unit, [address] [place] [address] Rao Espinoza MD [address] [place] [address] CORONARY ANGIOGRAPHY W/LEFT HEART CATH 10/21/2023 9:00 AM EDT Office Visit Cardiology [facility] [address] [place] [address] [place], Cardiac Recovery [facility] [address] [place], [place] [id number] 10/26/2023 1:00 PM EDT Office Visit Family Practice [address] [place] [address] [place] [address] Kerline Sotelo, DO [address] [place] [address] 10/27/2023 9:00 AM EDT Office Visit Podiatry [facility] [address] [place] [address] Angeles Arciniega DPM [address] [place] [address] 11/27/2023 8:30 AM EDT Office Visit Cardiology, [facility] [address] [place] [address] Odilia Arce CRNP [address] [place] [address] 03/02/2024 10:30 AM EDT Imaging Vascular Lab, [address] [facility] [address] 03/02/2024 11:30 AM EDT Imaging Vascular Lab, [address] [facility] [address] 03/09/2024 8:30 AM EDT Office Visit Vascular Surgery, [facility] [address] [place] [address] Erwin Olsen MD [address] [place] [address] Scheduled Procedures Name Priority Associated Diagnoses Date/Ti [...] this encounter Medical Devices Implanted Type Area Waiter/Waitress Tourist Class Device Identifier Shelf Expiration Date Model / Serial / Lot Graft Stent Viab [id number] - [id number] Implanted:Qty : 1 on 05/01/2014 at OR [facility] Left: SFA [employer] 03/09/2017 [id number] / / [id number] Stent Complete Sc 6x60 - [id number] Implanted:Qty : 1 on 07/23/2016 by Erwin Olsen MD at OR [facility] Left: Popliteal Artery [employer] : VASCULAR 02/25/2018 [id number] / / [id number] Graft Stent Viab [id number] - [id number] - [id number] Implanted:Qty : 1 on 01/12/2017 by Erwin Olsen MD at OR [facility] Right: SFA [employer] 10/01/2019 [id number] / [id number] / Stent Peripheral 7 Diam 150x20 - [id number] Implanted:Qty : 1 on 09/01/2019 by Erwin Olsen MD at OR [facility] Left: SFA [employer] : VASCULAR [id number] 01/12/2022 [id number] / / [id number] Vasc Cls Cadn Mynx6/7fr - [id number] Implanted:Qty : 1 on 02/21/2022 by Erwin Olsen MD at OR [facility] CARDIOVASCULAR [employer]YNAMICS [id number] 01/07/2023 [id number] / / [id number] documented as of this encounter Visit Diagnoses Diagnosis Chronic kidney disease, stage 4 (severe) (HCC)- Primary Persistent proteinuria Proteinuria HTN, goal below 140/90 Unspecified essential hypertension Coronary artery disease involving [place] heart, unspecified vessel or lesion type, unspecified whether angina present Gout, unspecified cause, unspecified chronicity, unspecified site Hyperphosphatemia Disorders of phosphorus metabolism Chest pain Chest pain, unspecified ARRIAGA (dyspnea [...] the patient have Health Care Power of Classroom Instructional Aide? No Care Teams Tape Controlled Machine Stitcher Relationship Specialty Start Date End Date Kerline Sotelo DO [address] [place] [address] PCP - General Family Medicine 03/29/23 documented as of this encounter
--- OUTSIDE RECORDS SUMMARY | 2023-10-21 00:19 | External Medical Summary | Summary of Care ---
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) Allergies No known active allergiesdocumented as [...] 180 Capsule 3 4 09/20/19 25 Active Clopidogrel Bisulfate 75 MG Oral Tablet (pLAVix)Indications :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) TAKE ONE TABLET BY MOUTH EVERY DAY IN THE MORNING 100 Tablet 1 4 09/29/19 25 Active Carvedilol 25 MG Oral Tablet (Coreg)Indications: Hypertensive kidney disease with chronic kidney disease stage III (HCC) TAKE ONE AND ONE-HALF TABLETS BY MOUTH TWICE A DAY 270 Tablet 1 4 09/28/19 25 Active Clopidogrel Bisulfate 75 MG Oral Tablet (pLAVix)Indications :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) TAKE ONE TABLET BY MOUTH EVERY DAY IN THE MORNING 100 Tablet 3 3 09/29/19 24 Discontinu ed(Refill) documented as [...] Secondary hyperparathyroidism of renal origin Atherosclerosis of [place] ar teries of the extremities with ulceration [...] bilateral 05/28/2020 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[place] coronary artery without angina pectoris 05/28/2020 Diabetes mellitus with nephropathy 05/25/2019 Diabetes mellitus type 2 with peripheral artery disease 05/25/2019 Aortic root dilatation 05/25/2019 Diabetes mellitus, insulin dependent (IDDM), con trolled 05/25/2019 DDD (degenerative disc disease), cervical 11/09/ 2018 Urinary retention 08/25/2017 BPH with obstruction/lower urinary [...] COVID-19 Whole Virus, Rollins Vac, 2-Dose Series ([employer]) 06/10/2021,11/08/2020,10/08/2020 Pneumococcal Polysaccharide PPV23 (Pneumovax) 05/19/2013 Seasonal [...] encounter Miscellaneous Notes * Telephone Encounter - Aram Morris [facility] - 09/30/2023 8:50 AM ESTSigned Prescriptions: Disp Refills Clopidogrel Bisulfate 75 MG Oral Tablet (p*100 Ta*1 Sig: TAKE ONE TABLET BY MOUTH EVERY DAY IN THE MORNINGAuthorizing Provider: KERLINE MAYEN User: ARAM MORRIS documented in this encounter Plan of Treatment Upcoming Encounters Date Type Department Care Team (Latest Contact Info) Description 10/21/2023 9:00 AM EDT Hospital Encounter CRS Waiting [facility], Cardiac Recovery Suite Waiting Unit, [address] [place] [address] Rao Espinoza MD [address] [place] [address] 10/21/2023 9:00 AM EDT - 10/21/2023 10:00 AM EDT Surgery CRS Waiting [facility], Cardiac Recovery Suite Waiting Unit, [address] [place] [address] Rao Espinoza MD [address] [place] [address] CORONARY ANGIOGRAPHY W/LEFT HEART CATH 10/21/2023 9:00 AM EDT Office Visit Cardiology [facility] [place] [address] [place] [address] [facility] Cardiac Recovery [facility] [address] [place] [address] 10/26/2023 1:00 PM EDT Office Visit Family Practice [address] [place] [address] [address] [place] [address] Kerline Mayen DO [address] [place] [address] 10/27/2023 9:00 AM EDT Office Visit Podiatry [facility] [address] [place] [address] Angeles Arciniega DPM [address] [place] [address] 11/27/2023 8:30 AM EDT Office Visit Cardiology, [facility] [address] [place] [address] Odilia Arce CRNP [address] [place] [address] 03/02/2024 10:30 AM EDT Imaging V[facility], [address] [facility] [address] 03/02/2024 11:30 AM EDT Imaging Vascular Lab, [address] [place] [address] 03/09/2024 8:30 AM EDT Office Visit Vascular Surgery, [facility] 132 [facility] [place] [address] Erwin Olsen MD [address] [place] [address] Scheduled Procedures Name Priority Associated Diagnoses Date/Ti [...] this encounter Medical Devices Implanted Type Area Peoplesoft Programmer Device Identifier Shelf Expiration Date Model / Serial / Lot Supera Peripheral Stent Implanted:Qty : 1 on 05/01/2014 at OR [facility] Left: Popliteal Artery 11/08/2015 [id number] -120-[id number] / / [id number] Description:[id number] Stent Complete Sc 7x150 - [id number] Implanted:Qty : 1 on 05/01/2014 at OR [facility] Left: [facility] [employer] : VASCULAR 02/07/2016 [id number] / / [id number] Graft Stent Viab 4ebe6wk - [id number] Implanted:Qty : 1 on 05/01/2014 at OR [facility] Left: [employer] 03/09/2017 [id number] / / [id number] Stent Complete Sc 6x60 - [id number] Implanted:Qty : 1 on 07/23/2016 by Erwin Olsen MD at OR [facility] Left: Popliteal Artery [employer] : VASCULAR 02/25/2018 [id number] / / [id number] Stent Viabahn Implanted:Qty : 1 on 01/12/2017 by Erwin Olsen MD at OR [facility] Right: SFA 08/20/2018 [id number] 02A / [id number] / Graft Stent Viab 4ghx4wu - [id number] - [id number] Implanted:Qty : 1 on 01/12/2017 by Erwin Olsen MD at OR [facility] Right: SFA [employer] 10/01/2019 [id number] 02A / [id number] / Stent Peripheral 7 Diam 150x20 - [id number] Implanted:Qty : 1 on 09/01/2019 by Erwin Olsen MD at OR [facility] Left: SFA [employer] : VASCULAR [id number] 01/12/2022 [id number] -020-150 / / [id number] Device [facility] Cls Cadn Mynx6/7fr - [id number] Implanted:Qty : 1 on 02/21/2022 by Erwin Olsen MD at OR [facility] CARDIOVASCULAR DYNAMICS [id number] 01/07/2023 [id number] / / [id number] documented as of this encounter Visit Diagnoses Diagnosis 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 No Care Teams Indian Trader Relationship Specialty Start Date End Date Kerline Mayen DO [address] [place] [address] PCP - General Family Medicine 03/29/23 documented as of this encounter
--- OUTSIDE RECORDS SUMMARY | 2023-10-21 00:20 | External Medical Summary | Summary of Care ---
Author Name Unknown Organization [facility] Address [address] [place] [address] Phone [phone] Care Team Providers Care Home Service Demonstrator Name Role Phone Kerline Sotelo Primary Care Provider [phone] Reason for Visit * Reason Comments Outpatient Testing Encounter Details Date Type Department Care Team (Late st Contact Info) Description 09/16/2023 11:00 AM EST Laboratory Laboratory, [facility] [address] [place] [address] [facility] [address] [place] [address] Chronic kidney disease, stage 4 (severe) ([facility]) Allergies No known active allergiesdocumented as of this encounter (statuses as of 09/16/2023) Medications Medication Sig Dispensed Refills Start Date End Date Status ASPIRIN LOW DOSE 81 MG PO TABSIndications:Othe r specified prophylactic or treatment measure 1 TABLET DAILY 30 Tab 11 05/19/2013 Active Blood Glucose Monitoring Suppl (ONETOUCH VERIO) w/Device KITIndications:Knickerbocker corwin glucose Use up to 4 times a day E11.9 1 Kit 0 12/22/2018 Active ONETOUCH DELICA LANCETS 33G MISC test blood sugars up to four times daily. ICD-10: E11.9 100 Each 11 08/15/2019 Active Spacer/Aero-Holding Chambers DeviceIndications:DO E (dyspnea on exertion),Shortness of breath Use with inhaler. 1 Each 0 09/18/2022 Active Melatonin 10 MG Oral Tablet Take 1 [...] DAY 400 Strip 3 10/02/2022 4 Active Terazosin HCl 2 MG Oral CapsuleIndications:H ypertensive kidney disease with chronic kidney disease stage III (HCC),Thoracic aortic aneurysm without rupture (HCC),Hypertensive kidney disease with stage 3b chronic kidney disease (HCC),HTN, goal below 130/80,Labile blood pressure TAKE TWO CAPSULES BY MOUTH AT BEDTIME 180 Capsule 3 09/25/2022 4 Active Lisinopril 40 MG Oral Tablet TAKE ONE TABLET BY MOUTH EVERY DAY IN THE MORNING 90 Tablet 2 09/25/2022 4 Active Additional Information Patient taking differently: 20 mg, Reported on 02/18/2023 Clopidogrel Bisulfate 75 MG Oral Tablet (pLAVix)Indications: 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 300 Tablet 3 04/20/2023 Active HYDROcodone-Acetamin ophen 5-325 MG Oral Tablet Take 1 Tablet by mouth every 4 hours as needed for Pain, Mild. 20 Tablet 0 05/06/2023 Active Veltassa 8.4 GM Oral Packet (Patiromer [...] AND BEFORE BEDTIME 90 Capsule 5 08/05/2023 Active documented as of this encounter (statuses as of 09/16/2023) Active Problems Problem Noted Date Diagnosed Date [...] Secondary hyperparathyroidism of renal origin Atherosclerosis of [place] ar teries of the extremities with ulceration [...] bilateral 05/28/2020 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[place] coronary artery without angina pectoris 05/28/2020 Diabetes [...] as of this encounter (statuses as of 09/16/2023) Resolved Problems Problem Noted Date Diagnosed Date [...] as of this encounter (statuses as of 09/16/2023) Immunizations Name Administration Dates Next Due COVID-19 Whole Virus, Rollins Vac, 2-Dose Series ([employer]) 06/10/2021,11/08/2020,10/08/2020 Pneumococcal Polysaccharide PPV23 (Pneumovax) 05/19/2013 Seasonal [...] Upcoming Encounters Date Type Department Care Team (Late st Contact Info) Description 09/17/2023 3:30 PM EST Office Visit Nephrology, [facility] [address] [place] [address] Geetha Morales PA-C [address] [place] [address] 09/18/2023 10:30 AM EST Office Visit Cardiology, [facility] 132 [facility] [place] [address] Odilia Arce CRNP [address] [facility] [place] [address] 10/26/2023 1:00 PM EDT Office Visit Family Practice [address] [place] [address] [address] [place] [address] Kerline Sotelo DO [address] [place] [address] 10/27/2023 9:00 AM EDT Office Visit Podiatry [facility] [address] [place] [address] Angeles Arciniega DPM [address] [place] [address] 03/02/2024 8:00 AM EDT Imaging Vascular Lab, [facility] [facility] [address] [place] [address] 03/02/2024 9:00 AM EDT Imaging Vascular Lab, [address] [facility] [place] [address] 03/09/2024 8:30 AM EDT Office Visit Vascular Surgery, [facility] 132 [facility] [place] [address] Erwin Olsen MD [address] [place] [address] Pending Results Name Type Priority Associated Diagnoses Date /Time ALBUMIN Lab Routine Chronic kidney disease, stage 4 (severe) (HCC) 09/16/2023 10:58 AM EST BASIC METABOLIC PANEL Lab Routine Chronic kidney disease, stage 4 (severe) (HCC) 09/16/2023 10:58 AM EST HGB Lab Routine Chronic kidney disease, stage 4 (severe) (HCC) 09/16/2023 10:58 AM EST PHOSPHORUS Lab Routine Chronic kidney disease, stage 4 (severe) (HCC) 09/16/2023 10:58 AM EST Scheduled Procedures Name Priority Associated Diagnoses Date/Ti me COLONOSCOPY FLEXIBLE PROXIMA L DIAGNOSTIC Recall History of colon polyps Special [...] 0 03/07/2022, 05/28/2020, Additional history exists GFR 03/02/2024 09/02/2023, 01/0 11/2023, 07/01/2023, Additional history exists Albumin/Creatinine Ratio 05/04/2024 023, [...] this encounter Medical Devices Implanted Type Area Cad Designer Drafter Device Identifier Shelf Expiration Date Model / Serial / Lot Graft Stent Viab [id number] - [id number] Implanted:Qty : 1 on 05/01/2014 at OR [facility] Left: SFA [employer] 03/09/2017 [id number] / / [id number] Stent Complete Sc 6x60 - [id number] Implanted:Qty : 1 on 07/23/2016 by Erwin Olsen MD at OR [facility] Left: Popliteal Artery [employer] : VASCULAR 02/25/2018 [id number] / / [id number] Graft Stent Viab [id number] - [id number] - [id number] Implanted:Qty : 1 on 01/12/2017 by Erwin Olsen MD at OR [facility] Right: SFA [employer] 10/01/2019 [id number] 02A / [id number] / Stent Peripheral 7 Diam 150x20 - [id number] Implanted:Qty : 1 on 09/01/2019 by Erwin Olsen MD at OR [facility] Left: SFA [employer] : VASCULAR [id number] 01/12/2022 [id number] -020-150 / / [id number] Device Vasc Cls Cadn Mynx6/7fr - [id number] Implanted:Qty : 1 on 02/21/2022 by Erwin Olsen MD at OR [facility] CARDIOVASCULAR DYNAMICS [id number] 01/07/2023 [id number] / / [id number] documented as of this encounter Visit Diagnoses Diagnosis Chronic kidney disease, stage 4 (severe) (HCC) documented in this encounter Advance Directives Latest [...] the patient have Health Care Power of Manager Of Care? No Care Teams Home Service Demonstrator Relationship Specialty Start Date End Date Kerline Sotelo DO [address] [facility] [place] [address] PCP - General Family Medicine 03/29/23 documented as of this encounter
--- OUTSIDE RECORDS SUMMARY | 2023-10-21 00:20 | External Medical Summary ---
Author Name Unknown Address Unknown Organization [id number]:[facility] [address] [place] [address] Laboratory Report Ordering Provider Test Date Status AMANDA DIAMOND 09/16/2023 10:58:52 Final Observation Date Value Abnormality Reference (Units ) Status Albumin 09/16/2023 10:58:52 4.4 3.8-5.0 (g /dL) Final Performing Location [facility] [address] [place] [address]
--- OUTSIDE RECORDS SUMMARY | 2023-10-21 00:20 | External Medical Summary | Summary of Care ---
Author Name Unknown Organization [facility] Address [address] [place] [address] Phone [phone] Care Team Providers Care Licensed Practical Nurse Name Role Phone MarleneStormy chinchillazully [place] DO Primary Care Provider [phone] Reason for Visit * Reason Onset Date Comments Follow Up 06/12/2023 Encounter Details Date Type Department Care Team ([facility] st Contact Info) Description 06/12/2023 Telephone [facility] [address] [place] [address] Kindra Blount MD [address] [place] [address] Follow Up Allergies No known active allergiesdocumented as of this encounter (statuses as of 09/11/2023) Medications Medication Sig Dispensed Refills Start Date End Date Status ASPIRIN LOW DOSE 81 MG PO TABSIndications:Ot her specified prophylactic or treatment measure 1 TABLET DAILY 30 Tab 11 05/19/20 13 Active Blood Glucose Monitoring Suppl (ONETOUCH VERIO) w/Device KITIndications:Juliette vated glucose Use up to 4 times a day E11.9 1 Kit 0 12/23/19 19 Active ONETOUCH DELICA LANCETS 33G MISC test blood sugars up to four times daily. ICD-10: E11.9 100 Each 11 08/15/19 20 Active Spacer/Aero-Holdin g Chambers DeviceIndications: ARRIAGA (dyspnea on exertion),Shortnes s of breath Use with inhaler. 1 Each 0 09/18/19 Active Melatonin 10 MG Oral Tablet Take 1 Tablet by mouth at bedtime. 0 Active Spironolactone 25 MG Oral Tablet (Aldactone) TAKE ONE-HALF TABLET BY MOUTH EVERY MORNING 45 Tablet 02/03/20 024 Active amLODIPine Besylate 10 MG Oral Tablet (Norvasc)Indicatio ns:Essential hypertension with goal blood pressure less than 140/90 TAKE ONE TABLET BY MOUTH EVERY MORNING 90 Tablet 02/03/20 024 Active hydrALAZINE HCl 50 MG Oral Tablet (Apresoline) TAKE ONE AND ONE-HALF TABLETS BY MOUTH EVERY MORNING, ONE AND ONE-HALF TABLETS AT NOON AND ONE AND ONE-HALF TABLETS BEFORE BEDTIME 405 Tablet 12/13/19 024 Active Additional Information Patient taking differently: Oral BID (.AM/PM), 1.5 tabs, Reported on 09/02/2023 Isosorbide Mononitrate ER 60 MG Oral Tablet Extended Release 24 Hour (Imdur)Indications :ARRIAGA (dyspnea on exertion) TAKE ONE TABLET BY MOUTH EVERY MORNING 90 Tablet 11/27/19 024 Active Atorvastatin Calcium 40 MG Oral Tablet (Lipitor)Indicatio ns:Other hyperlipidemia TAKE ONE TABLET BY MOUTH EVERY MORNING 90 Tablet 11/27/19 024 Active Insulin Pen Needle 31G X 6 MMIndications:Type 2 diabetes mellitus with hemoglobin A1c goal of less than 7.0% (HCC) USE WITH LANTUS ONCE DAILY OR DIRECTED 300 Each 11/21/19 024 Active Lantus SoloStar 100 UNIT/ML Subcutaneous Solution Pen-injectorIndica tions:Type 2 diabetes mellitus with hemoglobin A1c goal of less than 7.0% (HCC) INJECT 18 UNITS UNDER THE SKIN ONCE DAILY 30 mL 11/21/19 024 Active Additional Information Patient taking differently: 34 Units Subcutaneous Daily(AM), Reported on 09/02/2023 Glucose Blood In Vitro Strip USE TO TEST BLOOD SUGAR FOUR TIMES A DAY 400 Strip 10/02/19 024 Active Terazosin HCl 2 MG Oral CapsuleIndications :Hypertensive kidney disease with chronic kidney disease stage III (HCC),Thoracic aortic aneurysm without rupture (HCC),Hypertensive kidney disease with stage 3b chronic kidney disease (HCC),HTN, goal below 130/80,Labile blood pressure TAKE TWO CAPSULES BY MOUTH AT BEDTIME 180 Capsule 3 09/25/19 23 024 Active Lisinopril 40 MG Oral Tablet TAKE ONE TABLET BY MOUTH EVERY DAY IN THE MORNING 90 Tablet 2 09/25/19 23 024 Active Additional Information Patient taking differently: 20 mg, Reported on 02/18/2023 Clopidogrel Bisulfate 75 MG Oral Tablet (pLAVix)Indication s: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 Every 14 days 2 Each 0 02/20/20 23 Active Allopurinol 100 MG Oral Tablet (Zyloprim) Take 2 Tablets by mouth in the morning. 180 Tablet 3 03/20/20 23 Active Carvedilol 25 MG Oral Tablet (Coreg)Indications :Hypertensive kidney disease with chronic kidney disease stage III (HCC) TAKE ONE AND ONE-HALF TABLETS BY MOUTH TWICE A DAY 270 Tablet 1 03/24/20 23 024 Active Sodium Bicarbonate 650 MG Oral TabletIndications: Chronic kidney disease, stage 4 (severe) (HCC) Take 2 Tablets by mouth in the morning and 2 Tablets before bedtime. 120 Tablet 11 04/06/20 23 Active Furosemide 40 MG Oral Tablet (Lasix)Indications :Labile blood pressure,Hypertens kali kidney disease with stage 3b chronic kidney disease (HCC) Take 1.5 Tablets by mouth 2 times a day. 300 Tablet 3 04/20/20 23 Active HYDROcodone-Acetam inophen 5-325 MG Oral Tablet Take 1 Tablet by mouth every 4 hours as needed for Pain, Mild. 20 Tablet 0 05/06/20 23 Active Veltassa 8.4 GM Oral Packet (Patiromer Sorbitex Calcium)Indication s:Hypertensive kidney disease with stage 3b chronic kidney disease (HCC) Mix 1 packet (8.4g) in water and drink the morning. 30 Each 5 05/10/20 23 Active Pantoprazole Sodium 40 MG Oral Tablet Delayed Release (Protonix)Indicati ons:ARRIAGA (dyspnea on exertion),Shortnes s of breath TAKE ONE TABLET BY MOUTH EVERY EVENING 100 Tablet 3 05/19/20 23 Active Calcitriol 0.25 MCG Oral Capsule (Rocaltrol)Indicat ions:Hypertensive kidney disease with stage 3b chronic kidney disease (HCC) Take 1 Capsule by mouth in the morning. 30 Capsule 5 05/19/20 Active Gabapentin 100 MG Oral Capsule (Neurontin)Indicat ions:Sensory neuropathy TAKE ONE CAPSULE BY MOUTH THREE TIMES A DAY -- IN THE MORNING, AT NOON AND BEFORE BEDTIME 90 Capsule 5 01/07/20 23 023 Discontinued(Re fill) Veltassa 8.4 GM Oral Packet (Patiromer Sorbitex Calcium)Indication s:Hypertensive kidney disease with stage 3b chronic kidney disease (HCC) Take 8.4 g by mouth in the morning. Please take 3 hours after AM meds. Should not be taken with other medications for full effectiveness.. 30 Each 1 03/27/20 23 024 Discontinued(Nj dication List Clean Up) Ciprofloxacin HCl 500 MG Oral Tablet (Cipro)Indications :Osteomyelitis of third toe of left foot (HCC) Take 1 Tablet by mouth in the morning for 10 days. 10 Tablet 0 04/20/20 023 Discontinued documented as of this encounter (statuses as of 09/11/2023) Active Problems Problem Noted Date Diagnosed Date [...] Secondary hyperparathyroidism of renal origin Atherosclerosis of [place] ar teries of the extremities with ulceration [...] bilateral 05/28/2020 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[place] coronary artery without angina pectoris 05/28/2020 Diabetes [...] as of this encounter (statuses as of 09/11/2023) Resolved Problems Problem Noted Date Diagnosed Date [...] as of this encounter (statuses as of 09/11/2023) Immunizations Name Administration Dates Next Due COVID-19 Whole Virus, Rollins Vac, 2-Dose Series (Sqeeqee) 06/10/2021,11/08/2020,10/08/2020 Pneumococcal Polysaccharide PPV23 (Pneumovax) 05/19/2013 Seasonal [...] encounter Miscellaneous Notes * Telephone Encounter - Kindra Blount MD - 06/24/2023 4:08 PM EST Pt already booked 07/07; no need to overbook this week * Telephone Encounter - Kindra Blount MD - 06/23/2023 4:30 PM EST Pls over book wed 07/08 [facility] 1240 pm * Telephone Encounter - Leonela Burleson RN - 06/18/2023 10:22 AM EST TE with pt regarding alternate sites possible for transplant referral. PT would like to discuss this further with Dr Blount before making any further decisions. Link Trainer Maintenance Man- Please schedule pt to see Dr Blount some time in July. * Telephone Encounter - Kindra Blount MD - 06/12/2023 8:51 AM EDT Pt turned down recently for renal transplant by [facility] d/t vascular and cardiac status. He wondered aloud to CKD case mgt if he could be evaluated at another center for transplant. I do think it will be a long shot to get him listed (he has densely calcified iliac arteries which is where they sew in the transplanted kidney) but I will gladly refer /support if he wants to leave no stone unturned Could consider -[facility] (clinic evals in [place] and transplant at either [facility] or [facility]) -would not recommend [place] w/o discussion between pt and me first -could try [facility] or/and [place] as well Pls call and d/w him so we can start referral if desired documented in this encounter Plan of Treatment Upcoming Encounters Date Type Department Care Team (Late st Contact Info) Description 10/19/2023 8:30 AM EDT Office Visit Cardiology, [facility] [address] [facility] [place] [address] Chele Alvarenga PA-C [facility] [place] [address] 10/26/2023 1:00 PM EDT Office Visit Family Practice [address] [place] [address], [place] [address] [place] [phone] Kerline Sotelo DO [address] [facility], [place] [address] 10/27/2023 9:00 AM EDT Office [facility] [address] [facility] [address] Angeles Arciniega, DPM [address] [facility] [place] [address] 03/02/2024 8:00 AM EDT Imaging Vascular Lab, [facility] [address] [facility], [address] [place] [address] 03/02/2024 9:00 AM EDT Imaging Vascular Lab, [facility] [address] [facility], [place] [address] [facility] [place] [address] 03/09/2024 8:30 AM EDT Office Visit Vascular Surgery, [facility] [address] [facility] [place] [address] Erwin Olsen MD [address] [place] [address] Scheduled Procedures Name Priority Associated Diagnoses Date/Ti [...] 05/28/2020, Additional history exists GFR 03/02/2024 09/02/2023, 11/2023, 07/01/2023, Additional history exists Albumin/Creatinine Ratio [...] this encounter Medical Devices Implanted Type Area Assembler Faucets Device Identifier Shelf Expiration Date Model / Serial / Lot Graft Stent Viab [id number] - [id number] Implanted:Qty : 1 on 05/01/2014 at OR [facility] Left: SFA [employer] 03/09/2017 [id number] / / [id number] Stent Complete Ri 6x60 - [id number] Implanted:Qty : 1 on 07/23/2016 by Erwin Olsen MD at OR [facility] Left: Popliteal Artery [employer] : VASCULAR 02/25/2018 [id number] / / [id number] Graft Stent Viab 9stx7ik - [id number] - [id number] Implanted:Qty : 1 on 01/12/2017 by Erwin Olsen MD at OR [facility] Right: SFA [employer] 10/01/2019 [id number] / [id number] / Stent Peripheral 7 Diam 150x20 - [id number] Implanted:Qty : 1 on 09/01/2019 by Erwin Olsen MD at OR [facility] Left: SFA [employer] : VASCULAR [id number] 01/12/2022 [id number] / / [id number] Device Vas Cls Cadn Mynx6/7fr - [id number] Implanted:Qty : 1 on 02/21/2022 by Erwin Olsen MD at OR [facility] CARDIOVASCULAR [employer]YNAMICS [id number] 01/07/2023 [id number] / / [id number] documented as of this encounter Advance Directives [...] the patient have Health Care Power of [employer]? No Care Teams Licensed Practical Nurse Relationship Specialty Start Date End Date Kerline Sotelo DO [address] [place] [address] PCP - General Family Medicine 03/29/23 documented as of this encounter
--- OUTSIDE RECORDS SUMMARY | 2023-10-21 00:20 | External Medical Summary | Summary of Care ---
Author Name Unknown Organization [facility] Address [address] [place] [address] Phone [phone] Care Team Providers Care Supervisor Weaving Name Role Phone Kerline Sotelo Primary Care Provider + [phone] Reason for Visit * Reason Comments Follow Up Encounter Details Date Type Department Care Team (Late st Contact Info) Description 09/02/2023 2:50 PM EST Office Visit Vascular Surgery, [facility] [address] [place] [address] Erwin Olsen MD [address] [place] [address] PAD (peripheral artery disease) ([facility])* Allergies No known active allergiesdocumented as of this encounter (statuses as of 09/02/2023) Medications Medication Sig Dispensed Refills Start Date End Date Status ASPIRIN LOW DOSE 81 MG PO TABSIndications:Othe r specified prophylactic or treatment measure 1 TABLET DAILY 30 Tab 11 05/19/2013 Active Blood Glucose Monitoring Suppl (ONETOUCH VERIO) w/Device KITIndications:Ogden corwin glucose Use up to 4 times [...] 75 MG Oral Tablet (pLAVix)Indications: 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 (HCC) [...] as of this encounter (statuses as of 09/02/2023) Active Problems Problem Noted Date Diagnosed Date [...] Secondary hyperparathyroidism of renal origin Atherosclerosis of lumbee ar teries of the extremities with ulceration [...] bilateral 05/28/2020 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 05/28/2020 Diabetes [...] as of this encounter (statuses as of 09/02/2023) Resolved Problems Problem Noted Date Diagnosed Date [...] as of this encounter (statuses as of 09/02/2023) Immunizations Name Administration Dates Next Due COVID-19 Whole Virus, Rollins Vac, 2-Dose Series (farmbuy) 06/10/2021,11/08/2020,10/08/2020 Pneumococcal Polysaccharide PPV23 (Pneumovax) 05/19/2013 Seasonal [...] Passive Smoke Exposure: Past Smokeless Tobacco: Never Tobacco Cessation:Counseling Given: No Alcohol Use Standard Drinks/Week Comments No 0 [...] Sign Reading Time Taken Comments Blood Pressure 128/68 09/02/2023 1:53 PM EST Pulse 76 09/02/2023 1:53 PM EST Temperature 35.7 C (96.2 F) 09/02/2023 1:53 PM ES T Respiratory Rate - - Oxygen Saturation - - Inhaled Oxygen Concentration - - Weight 90 kg (198 lb 8 oz) 09/02/2023 1:53 PM ES T Height - - Body Mass Index 27.69 08/19/2023 8:11 AM EST documented in this [...] as of this encounter Progress Notes * Alphonso Agudelo PA-C - 09/02/2023 2:50 PM EST Images from the original note were not included. Date of Service: 08/17/2023 1:48 PM Miguel Heller is a 68 year old male. Referring Physician: Chele Cullen MD Chief Complaint: PAD follow up Feeling good Resolved claudication Applying Silvadene to left 4th toe, after F/U with Dr. Arciniega 2 days ago Getting BMP done following this visit Recently seen by Cardiology, having some easy fatigability Cardiology to F/U w/ Nephro re: current renal status and need for cardiac cath S/P shockwave angioplasties of RCFA & RSFA on 01/19/23 for claudication/recurrent stenoses by Dr. Olsen S/P angioplasty of the left superficial femoral artery (6 mm x 250 mm Impact balloon) by Dr Olsen 12/16/21 HPI: Pleasant non-smoker diabetic with PVD with onset of progressive BLE claudication, LLE>RLE, sinceearly 2013. He then developed a left great toe ulcer and was referred [place] [facility] [place]. With today's visit (12/17/2022) pt having severe bilateral calf and thigh claudication Must rest for 15 minutes before he starts walking again Can go 1/2 block max before stopping Recent left 3rd toe amputation by Dr Arciniega, 11/03/22, for osteo CKD has digressed into stage IV, followed by Nephrology at [facility]. Looking into setting up for peritoneal dialysis. Pt is right handed No ICD or PPMs He underwent placement of left popliteal artery Supera stent and placement of left superficial femoral artery Complete SE stent and Viabahn stent 05/01/[address] Olsen. At the time of left SFA stent placement there was evidence of contrast extravasation in the midportion of the stent, and a Viabahnstent was then placed with no further contrast extravasation. Post op he reported resolution of ulceration and absence of claudication. He then developed right lower extremity claudication, and underwent drug-coated balloon angioplastyof the right SFA 09/12/[address] Olsen for claudication. Re- stenosis noted on f/u duplex, and had persistent calf claudication, and underwent placement of right superficial femoral artery Viabahn stent and angioplasty of the right popliteal artery 01/12/[address] Olsen [CO2 utilized]. For re-stenosis underwent angioplasty and stenting (Everfelx) of the proximal left SFA 09/01/[address] Olsen. S/P Angioplasty of the left superficial femoral artery (6 mm x 250 mm Impact balloon) by Dr Olsen 12/16/21 S/P shockwave angioplasties of RCFA & RSFA on 01/19/23 for claudication/recurrent stenoses by Dr. Olsen CKD, following with Dr. Blount. PERIPHERAL VASCULAR DISEASE: Reported resolution of LLE claudication with revascularization on 07/23/2016. Reports marked improvement in RLE claudication s/p revascularization 01/2017. Hips and neuropathy limit his walking. Lateral, symmetric, hip pain with walking; onset around 20 yards. After resting 10 minutes then can go much further without pain Required left great toe amputation 11/29/20 for osteo with chronic wound RENAL FAILURE Follows with nephrology Right handed He is considering PD and now getting education Current Outpatient Medications Medication Sig Dispense Refill ASPIRIN LOW DOSE 81 MG PO TABS 1 TABLET DAILY 30 Tab 11 Blood Glucose Monitoring Suppl (Invested.in) w/Device KIT Use up to 4 times a day E11.9 1 Kit 0 FreshGradeTOUCH DEL[employer] LANCETS 33G MISC test blood sugars up [...] ONE-HALF TABLETS BEFORE BEDTIME 405 Tablet 3 Isosorbide Mononitrate ER 60 [...] THE SKIN ONCE DAILY 30 mL 3 Glucose Blood In Vitro [...] Sensor Use as directed. Every 14 days (Patient not taking: Reported on 07/07/2023) 2 Each 0 Allopurinol 100 MG Oral [...] 4 hours as needed for Pain, Mild. (Patient not taking: Reported on 08/13/2023) 20 Tablet 0 Veltassa 8.4 GM Oral Packet (Patiromer Sorbitex Calcium) Mix 1 packet (8.4g) in water and drink themorning. (Patient not taking: Reported on 07/07/2023) 30 Each 5 Pantoprazole Sodium 40 MG [...] No current facility-administered medications for this visit. Review of patient's allergies indicates: No Known Allergies Patient Active Problem List Diagnosis Code HTN, goal below 140/90 I10 Vitamin D deficiency E55.9 Thoracic aortic aneurysm (HCC) I71.20 Family history of ischemic heart disease Z82.49 Eczema L30.9 Nodule of flexor tendon sheath M67.90 PAD (peripheral artery disease) ([facility]) I73.9 Urinary retention R33.9 BPH with obstruction/lower urinary tract symptoms N40.1, N13.8 DDD (degenerative disc disease), cervical M50.30 Diabetes mellitus with nephropathy ([facility]) E11.21 Diabetes mellitus type 2 with peripheral artery disease ([facility]) E11.51 Aortic root dilatation ([facility]) I77.810 Diabetes mellitus, insulin dependent (IDDM), controlled [id number] Type 2 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, bilateral ([facility]) E11.3313 Atherosclerotic heart disease of lumbee coronary artery without angina pectoris I25.10 Hypertensive kidney disease with stage 3b chronic kidney disease (HCC) I12.9, N18.32 Depression F32.A Chronic kidney disease, stage 4 (severe) ([facility]) N18.4 Secondary hyperparathyroidism of renal origin (HCC) N25.81 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 (HCC) I70.25 Multinodular goiter E04.2 Major depressive disorder with single episode F32.9 Type 2 diabetes mellitus with diabetic neuropathy, with long-term current use of insulin (HCC) E11.40, Z79.4 Diabetes mellitus (HCC) E11.9 Dyslipidemia, goal LDL below 70 E78.5 Renal osteodystrophy N25.0 Multiple thyroid nodules E04.2 History of amputation of hallux (HCC) Z89.419 Cardiac asthma (HCC) I50.1 Chronic diastolic heart failure (HCC) I50.32 Type 2 diabetes mellitus with other specified complication (HCC) E11.69 Diabetic ulcer of toe of left foot associated with type 2 diabetes mellitus (HCC) E11.621, L97.529 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) Nonproliferative diabetic retinopathy (HCC) Past Surgical History: Procedure Laterality Date AMPUTATION OF TOE Left 05/06/2023 AMPUTATION TOE METATARSOPHALANGEAL JOINT performed by Angeles Arciniega DPM at OR [facility] AORTOGRAM ABDOMINAL-TECH ONLY 05/01/2014 IMAGING SUPERVISION & INTERPRETATION ABDOMINAL AO performed by Erwin Olsen MD [place] [facility] [place]ORTOGRAM ABDOMINAL-TECH ONLY 09/01/2019 IMAGING SUPERVISION & INTERPRETATION ABDOMINAL AO performed by Erwin Olsen MD at [place] [facility] AORTOGRAM ABDOMINAL-TECH ONLY N/A 12/16/2021 IMAGING SUPERVISION & INTERPRETATION ABDOMINAL AO performed by Erwin Olsen MD at [place] [facility] AORTOGRAM ABDOMINAL-TECH ONLY 02/21/2022 IMAGING SUPERVISION & INTERPRETATION ABDOMINAL AO performed by Erwin Olsen MD at [place] [facility] AORTOGRAM ABDOMINAL-TECH ONLY 01/19/2023 IMAGING SUPERVISION & INTERPRETATION ABDOMINAL AO performed by Erwin Olsen MD at [facility] COLONOSCOPY, DIAGNOSTIC (RECTUM) 12/13/2013 benign polyp, repeat 5 yrs/COLONOSCOPY FLEXIBLE PROXIMAL DIAGNOSTIC performed by Anoop Abernathy MD at ENDOSCOPY [facility] COLONOSCOPY, DIAGNOSTIC (RECTUM) 03/27/2016 hyperplastic polyps, diverticulosis, repeat 5 yrs/COLONOSCOPY FLEXIBLE PROXIMAL DIAGNOSTIC performed by Sanford Wood MD at ENDOSCOPY [facility] CORONARY ANGIOGRAPHY W/LEFT HEART CATH 09/07/2014 CORONARY ANGIOGRAPHY W/LEFT HEART CATH performed by Viki Bhakta MD at [facility] EGD, FLEXIBLE, DIAGNOSTIC 03/27/2016 normal bx/ESOPHAGOGASTRODUODENOSCOPY (EGD), FLEXIBLE, TRANSORAL, DIAGNOSTIC performed by Sanford Wood MD at [facility]OSCOPY [facility] FEM/POP ARTERY REVASC W/ STENT+ANGIOPLASTY 05/01/2014 FEM/POP ARTERY REVASC W/ STENT+ANGIOPLASTY performed by Erwin Olsen MD at [place] [facility] FEM/POP ARTERY REVASC W/ STENT+ANGIOPLASTY Left 07/23/2016 FEM/POP ARTERY REVASC W/ STENT+ANGIOPLASTY performed by Erwin Olsen MD at [place] [facility] FEM/POP ARTERY REVASC W/ STENT+ANGIOPLASTY Right 01/12/2017 FEM/POP ARTERY REVASC W/ STENT+ANGIOPLASTY performed by Erwin Olsen MD at [place] [facility] FEM/POP ARTERY REVASC W/ STENT+ANGIOPLASTY Left 09/01/2019 FEM/POP ARTERY REVASC W/ STENT+ANGIOPLASTY performed by Erwin Olsen MD at [place] [facility] FEM/POP ARTERY REVASC W/ANGIOPLASTY Right 09/12/2015 Drug-coated balloon angioplasty of the right superficial femoral artery. Dr. Olsen. [facility] [place]. FEM/POP ARTERY REVASC W/ANGIOPLASTY Left 12/16/2021 FEM/POP ARTERY REVASC W/ANGIOPLASTY performed by Erwin Olsen MD at [place] [facility] FEM/POP ARTERY REVASC W/ANGIOPLASTY Right 02/21/2022 FEM/POP ARTERY REVASC W/ANGIOPLASTY performed by Erwin Olsen MD at [place] [facility] FEM/POP ARTERY REVASC W/ANGIOPLASTY Right 01/19/2023 FEM/POP ARTERY REVASC W/ANGIOPLASTY performed by Erwin Olsen MD at [place] [facility] INJECTION OF EYE DRUG Left 01/18/2016 # 1 Eylea OS, INJECTION OF EYE DRUG Right 02/20/2016 # 1 EYLEA OD, Dr Vasquez INJECTION OF EYE DRUG Left 05/01/2016 # 2 Eylea OS, Dr. Vasquez INJECTION OF EYE DRUG Right 06/26/2016 # 2 Eylea OD; Dr. Vasquez INJECTION OF EYE DRUG Left 07/10/2016 # 3 Eylea OS; DR. Vasquez INJECTION OF EYE DRUG Right 08/25/2016 # 3 Eylea OD, Dr. Vasquez INJECTION OF EYE DRUG Left 09/24/2016 # 4 Eylea OS, Dr. Vasquez INJECTION OF EYE DRUG Right 11/18/2016 # 4 Eylea OD INJECTION OF EYE DRUG Right 02/25/2017 # 5 Eylea OD, Dr. Vasquez INJECTION OF EYE DRUG Right 06/05/2017 # 6 Eylea OD, Dr. Vasquez INJECTION OF EYE DRUG Right 12/23/2017 #7 Eylea OD, Dr. Vasquez INJECTION OF EYE DRUG Right 04/26/2021 # 1 Avastin OD, Dr. Vasquez INJECTION OF EYE DRUG Right 07/22/2021 # 2 Avastin OD, Dr. Vasquez INJECTION OF EYE DRUG Left 08/12/2021 # 1 Avastin OS, Dr. Vasquez INJECTION OF EYE DRUG Left 09/30/2021 # 5 Eylea OS, Dr. Vasquez INJECTION OF EYE DRUG Right 11/11/2021 # 8 Eylea OD, Dr. Vasquez INJECTION OF EYE DRUG Right 06/16/2022 # 9 Eylea OD, Dr. Vasquez INJECTION OF EYE DRUG Left 06/23/2022 # 6 Eyla OS, Dr. Vasquez INJECTION OF EYE DRUG Left 11/24/2022 # 7 Eyela OS; Dr Vasquez INJECTION OF EYE DRUG Left 01/07/2023 # 8 Eylea OS, Dr. Vasquez IR ARTERIOGRAM EXTREMITY BILATERAL 09/12/2015 ANGIOGRAPHY EXTREMITY BILATERAL performed by Erwin Olsen MD at [place] [facility] [place] ARTERIOGRAM EXTREMITY BILATERAL N/A 12/16/2021 ANGIOGRAPHY EXTREMITY BILATERAL performed by Erwin Olsen MD at [facility] IR ARTERIOGRAM EXTREMITY BILATERAL Right 01/19/2023 ANGIOGRAPHY EXTREMITY BILATERAL performed by Erwin Olsen MD at [facility] IR ARTERIOGRAM EXTREMITY UNILATERAL 05/01/2014 IMAGING SUPERVISION & INTERPRETATION EXTREMITY UNILATERAL performed by Erwin Olsen MD at [facility] IR ARTERIOGRAM EXTREMITY UNILATERAL Left 07/23/2016 IMAGING SUPERVISION & INTERPRETATION EXTREMITY UNILATERAL performed by Erwin Olsen MD at [facility] IR ARTERIOGRAM EXTREMITY UNILATERAL Right 01/12/2017 IMAGING SUPERVISION & INTERPRETATION EXTREMITY UNILATERAL performed by Erwin Olsen MD at [facility] IR ARTERIOGRAM EXTREMITY UNILATERAL Left 09/01/2019 IMAGING SUPERVISION & INTERPRETATION EXTREMITY UNILATERAL performed by Erwin Olsen MD at [facility] IR ARTERIOGRAM EXTREMITY UNILATERAL Right 02/21/2022 IMAGING SUPERVISION & INTERPRETATION EXTREMITY UNILATERAL performed by Erwin Olsen MD at [facility] MISCELLANEOUS ORDER ([facility] ONLY) left knee ACL repair MISCELLANEOUS ORDER ([facility] ONLY) Left 01/18/2016 Eylea OS Consent signed, Dr.Cesna ANDERSON ORDER ([facility] ONLY) Right 02/20/2016 Eylea OD Consent signed. Dr Pedro JAMES ([facility] ONLY) Bilateral 04/09/2017 EYLEA CONSENT OU SIGNED; DR PEDRO JAMES ([facility] ONLY) Bilateral 04/06/2018 Eylea OU Consent signed, OTHER ACT 112 signed, 04/26/2021 OTHER EYLEA OU CONSENT SIGNED, Dr. Panchal/John (Exp 08-12-22) OTHER (INFORMATION) Bilateral AVASTIN OU CONSENT SIGNED, Dr. Vasquez/John (Exp 04-26-2022) OTHER (INFORMATION) Bilateral EYLEA OU CONSENT DR. VASQUEZ/JOHN EXP. 09/30/22 OTHER (INFORMATION) EYLEA OU CONSENT SIGNED Dr. Vasquez/John (exp 11-25-23) PARTIAL AMPUTATION OF TOE Left 11/29/2020 AMPUTATION TOE INTERPHALANGEAL JOINT performed by Angeles Arciniega DPM at [facility] REPAIR RUPTURED ROTATOR CUFF, ACUTE right Family History Problem Relation Age of Onset Heart disease Mother in her late 60s Diabetes Father Heart Disorder Father Fatal DC in his mid 60s Hypertension Father No Known Problems Sister No Known Problems Sister No Known Problems Brother No Known Problems Brother Other (CKD/ESRD) None Glaucoma None Eye Problems None Denies family hx of retinal problems Cancer None Stroke None Other (Other) None Denies FmHx of AAA Social History Socioeconomic History Marital status: Single Spouse name: Not on file Number of children: 2 Years of education: Not on file Highest education level: Not on file Occupational History Employer: [employer] Tobacco Use Smoking status: Never Passive exposure: Past Smokeless tobacco: Never Vaping Use Vaping Use: Never used Substance and Sexual Activity Alcohol use: No Comment: in the past, but not currently Drug use: No Sexual activity: Not on file Other Topics Concern Not on file Social History Narrative Lives alone Social Determinants of Health Financial Resource Strain: Not on file Food Insecurity: No Food Insecurity (08/13/2023) Hunger Vital Sign Worried About Running Out of Food in the Last Year: Never true Ran Out of Food in the Last Year: Never true Transportation Needs: Not on file Physical Activity: Not on file Stress: Not on file Social Connections: Not on file Intimate Partner Violence: Not on file Housing Stability: Not on file REVIEW OF SYSTEMS: Constitutional: Denies fever/chills. Eyes: Denies amaurosis fugax. Cardiovascular: Denies chest pain. Respiratory: Denies SOB, reports stable ARRIAGA. Gastrointestinal: Denies bright red blood per rectum, denies melena. Genitourinary: Denies hematuria. Skin: No active ulcerations, reports some calluses on L foot, follows with podiatry, has diabetic shoes. Neurological: Denies TIA, denies CVA. Reports peripheral neuropathy. VITAL SIGNS: There were no vitals taken for this visit. GENERAL MULTI-SYSTEM PHYSICAL EXAM: GENERAL: Normal grooming habits, no acute distress and appears stated age. NECK: No masses. RESPIRATORY: Respiratory effort normal and lungs CTA. CARDIOVASCULAR: RRR, no heart murmurs and no edema. GASTROINTESTINAL: no tenderness, protuberant and abdominal aorta not palpable. LYMPHATIC: cervical lymph nodes unremarkable. SKIN: No ulcers, no rash, no induration, no dependent rubor. PSYCHIATRIC: orientation to time, place and person normal and recent and remote memory normal. EYES: conjunctivae normal. NEUROLOGIC: CN and motor function grossly intact. Impaired sensation feet. LEFT FOOT: Healed toe amp sites. Dry scab end of 4th left toe PULSE SCALE: Carotid Right:----Bruit: No Left:----Bruit: No Radial Right: 3 Left: 3 Femoral Right: 2 Left: 1 Popliteal Right: 0 Left: 0 Dorsalis Pedis Right:2 Left: 0 Posterial Tibial Right: 0 Left: 0 PULSE SCALE: 4=Aneurysmal; 3=Normal; 2=Diminished; 1=Barely Palpable; 0=Absent DIAGNOSTIC STUDIES: 08/26/23 ALVINA: 0.70/0.36 08/26/23 BLE Art Duplex: REIA 82, RCFA 98, RSFA 293/120/188/76, R Pop 97. PEPITO 103, LCFA 111, LDFA 177, LSFA 92/78/81, L Pop 160 The above diagnostic images were directly visualized and independently interpreted by me on 09/02/2023 with results as above 02/24/23 ALVINA: 0.81/0.44 02/24/23 LE Art Duplex: REIA 72 RCFA 154, RSFA origin 460, RSFA 135, R Pop 150, R TPT 94, R ROBERTH 68, R CASKET ASSEMBLER METAL 38, R Peron 60, PEPITO 129, LCFA stent 117, LSFA 118, L Pop 220, L TPT 38, L ROBERTH 64, L CASKET ASSEMBLER METAL 33 12/16/2022 ALVINA: 0.41/0.44 12/16/2022 Art Duplex: RCFA 60, RDFA 97, RSFA origin 115, RSFA prox 49/726/170, RSFA stent prox 64/30, LSFA distal 57, R Pop 47/133, R TPT 33, R CASKET ASSEMBLER METAL 32, R Peron 38, LCFA 79, LDFA 93, LSFA 119/86, LSFA stent 73/55/61/64, L Pop 123/25, L TPT 31 09/16/21 Art duplex right pop 357, left SFA 282 and left pop 46 monophasic 09/16/21 ALVINA 1/.66 01/10/21: ALVINA: 0.96/0.75 01/10/21: [place] Art: RCIA 118, REIA 90, RCFA 194, RDFA 91, RSFA 218, R-pop 118 LCIA 140, PEPITO 97, LCFA 148, LDFA 178, LSFA 168 02/07/20: MRA: Widely patent aorta/iliac. IMPRESSION: Patent abdominal aorta with mild to moderate calcified atherosclerotic plaque. Distal abdominal aorta with focal mild intraluminal narrowing. No evidence of abdominal aortic aneurysm. Patent bilateral iliac arteries. Severe narrowing/near occlusion of the proximal left SFA. 60% narrowing in the proximal right SFA. 01/16/20: ALVINA: 1/0.8 01/16/20: [place] Art: RCIA UI, REIA 83, RCFA 92, RDFA 79, RSFA 168, R-pop 105 LCIA UI, PEPITO 83, LCFA 105, LDFA 159, LSFA 138, L-pop 87 01/12/20: Bilateral Hip X-ray: Stable moderate bilateral hip osteoarthritis, greater on the LEFT. 08/29 Angiogram with CO2: iliac arteries appear widely patent bilaterally 07/04/19: ALVINA: 1/0.92 07/04/19: [place] Art: REIA 119, RCFA 171, RDFA 148, RSFA 158, R-pop 69, R-tib/per 121 LCFA 384, LDFA 77, LSFA 335, L-pop 105 09/04/17: ALVINA: 11 09/04/17: Art Duplex: REIA 84, RCFA 120, RDFA 62, RSFA 149, R-pop 129 PEPITO 99, LCFA 179, LDFA 97, LSFA 154, L-pop 120 01/29/17: ALVINA: 0.97/0.93 01/29/17: Art Duplex: REIA 82, RCFA 82, RDFA 96, RSFA 123, R-pop 124, R-tib/per 111, R-at 95, R-pt 58, R-per 75 01/02/17 ALVINA: 0.87/0.99 01/02/17 BLE art duplex: RCIA 130, REIA 110, RCFA 128, RDFA 94, RSFA 476 mid/distal, R pop 149, R PT 72, R per 65, R ROBERTH 104 PEPITO 126, LCFA 105, LDFA 108, LSFA 178, L pop 165, L per 65, L ROBERTH 133, L DP 386 09/02/2016 ALVINA .94/.97. 09/02/2016 BLE Art Duplex: Greater than 70% stenosis of the right distal superficial femoral arterial segment (339 cm/sec). No significant stenosis of the left stented superficial femoral and popliteal arterial segments. Three- vessel runoff bilaterally. 07/14/16 ALVINA: not calculable due to calcific vessels, but tibial waveforms are monophasic on right, biphasic on left 07/14/16 duplex: RCF 106, RDF 110, RSFA 109/151/254, R pop 190 LCF 101, LDF 125, LSFA 106/132/464, Lpop 206, L AT 96, L tib/per 87 10/15/15: ALVINA: 1/0.97 10/15/15: RLE Duplex: REIA 85, RCFA 74, RDFA 106, RSFA 160, R-pop 137A 09/06/2015 ALVINA .75/1.0. TBI .48/.55. 09/06/2015 LLE Duplex L VP ORGANIZATIONAL DEVELOPMENT 100, L DFA 70, L SFA 76-110, L Pop 86. 08/29/14 ALVINA: .96/.98 08/29/14 LLE art duplex: LCF 72, LDF 77, LSFA 98/113/155, L pop 126 05/09/14 ALVINA: 0.92/ 0.94 05/09/14 LLE art duplex: PEPITO 72, LCFA 94, LDFA 93, LSFA 106, L pop 100 02/16/14 Isrrael rosas: right 1.0 and left .80 with toe pressure 38. Post-exercise right .90 and left .34 after 5 minutes. LABS: Creatinine (mg/dL) Date Value 08/13/2023 4.2 (H) 06/07/2020 1.9 (H) LDL Cholesterol (mg/dL) Date Value 04/09/2023 62 02/15/2018 67 Triglycerides (mg/dL) Date Value 04/09/2023 196 (H) 02/15/2018 193 Hemoglobin A1C (%) Date Value 04/09/2023 8.2 (H) 04/08/2019 6.9 (H) HGB (g/dL) Date Value 08/13/2023 10.8 (L) 06/07/2020 11.7 (L) The above clinical lab tests were reviewed by me on 09/02/23 IMPRESSIONS: S/P shockwave angioplasties of RCFA & RSFA on 01/19/23 for claudication/recurrent stenoses by Dr. Olsen S/P angioplasty of the left superficial femoral artery (6 mm x 250 mm Impact balloon) by Dr Olsen 12/16/21 Right popliteal high grade stenosis S/p left great toe amputation for osteo 11/29/[address] Arciniega & 11/03/22 left 3rd toe amputation for osteo, also by Dr. Arciniega S/P angioplasty and stenting (Everfelx) of the proximal left SFA 09/01/[address] Olsen for re-stenosis S/P placement of right superficial femoral artery Viabahn stent and angioplasty of the right popliteal artery 01/12/[address] Olsen for re-stenosis of prior angioplasty. S/P placement of left superficial femoral artery Complete SE stent by Dr. Olsen on 07/23/2016. S/P drug-coated balloon angioplasty of the right SFA 09/12/[address] Olsen for claudication. S/P left popliteal artery Supera stent, left SFA Complete SE stent and Viabahn stent 05/01/14 by for LLE PAD with left great toe ulceration. At the time of left SFA stent placement there was evidence of contrast extravasation in the midportion of the stent, and a Viabahn stent was then placed with no further contrast extravasation. Widely patent aorta/iliac on 2019 MRA. Diliated aortic root/ascending. Followed by Chele Alvarenga PA-C. Cardiac Cath of 09/07/2014 demonstrated coronary arteries diffuse mod irregularities. HTN. Dyslipidemia CKD IV, follows with Nephrology in [facility] DM. Peripheral Neuropathy. Cervical spine disease Moderate, by 2020 XRs, OA of both hips Mild OA, both knees H/O L ACL repair Never smoker. PLAN: The patient was counseled regarding the pathophysiology and natural history of peripheral vascular disease, as well as the interventional and noninterventional therapeutic options. Continue ASA 81 mg & Plavix 75 mg both daily for platelet inhibition & stent patency Continue Lipitor 40 mg for dyslipidemia/hyperlipidemia/pleiotropic benefits The patient was instructed on foot care and proper footwear. Continue to follow with podiatry. The patient was seen and examined with Erwin Olsen MD. RTC 6 months with ALVINA and BLE Art Duplex. Will see sooner, tiny if left 4th toe status declines. Given low LLE ALVINA, patient may need LLE revasc. Patient will continue to F/U with Dr. Arciniega Patient to have BMP check following this visit. Cardiology to F/U with Nephro re: renal status and need for cardiac cath Alphonso Agudelo PA-C I have reviewed the advanced practitioner's documentation, and I agree with, and take responsibility for the plan of care. S/p bilateral LE revasc He has left 4th toe with probable osteo and bulbous tip of toe that Dr Arciniega told him may needTMA His blood flow is poor and I would suggest only left 4th and 5th toe amps after I made the blood flow better BUT currently he is awaiting a cardiac cath pending review by Dr Juárez his jigger operator. Will make 6 month return to see me but he knows to contact me bethany anytime the feet worsent Erwin Olsen MD Section of Vascular and Endovascular [place] [address] [phone] documented in this encounter Plan of Treatment Upcoming Encounters Date Type Department Care Team (Late st Contact Info) Description 09/02/2023 3:20 PM EST [facility] [address] [place] [address] Clemencia Rosas [address] [place] [address] [address] Chronic kidney disease, stage 4 (severe) ([facility]) 09/24/2023 4:00 PM EST Office Visit Dermatology, [place] [address] [facility] [place] [address] Arabella Motta PA-C [address] [place] [address] [place] [address] 10/19/2023 8:30 AM EDT Office Visit Cardiology, [facility] [place] [address] Chele Alvarenga PA-C [address] [place] [address] 10/26/2023 1:00 PM EDT Office Visit Family Practice [address] [place] [address] 293 [facility] [place] [address] Kerline Sotelo, 293 [place] [address] 10/27/2023 9:00 AM EDT Office Visit Podiatry [facility] 132 [facility] [place] [address] [place] Arciniega DPM 132 [facility] [place] [address] 03/02/2024 8:00 AM EDT Imaging Vascular Lab, [address] 132 [facility] [place] [address] 03/02/2024 9:00 AM EDT Imaging Vascular Lab, [address] 132 [facility] [place] [address] 03/09/2024 8:30 AM EDT Office Visit Vascular Surgery, [facility] [place] [address] Erwin Olsen MD 100 [address] [facility] [place] [address] Scheduled Orders Name Type Priority Associated Diagnoses Orde r Schedule VASC CHE[place]K ART DUP BILAT LE Medical Imaging Routine PAD (peripheral artery disease) (HCC) Ordered: 09/02/2023 VASC ANKLE BRACHIAL INDICES WITHOUT PPG (PAD) Medical Imaging Routine PAD (peripheral artery disease) (HCC) Ordered: 09/02/2023 Scheduled Procedures Name Priority Associated Diagnoses Date/Ti [...] or Tdap) 11/19/2023 11/18/2013 Diabetic Eye Exam 01/08/2024 01/07/2023, , 11/11/2021, Additional history exists Diabetic Foot Exam 01/27/2024 01/26/2023, 0 03/07/2022, 05/28/2020, Additional history exists GFR 02/11/2024 08/13/2023, 06/11, 05/04/2023, Additional history exists Albumin/Creatinine Ratio 05/04/2024 023, [...] this encounter Medical Devices Implanted Type Area Sawdust Drier Device Identifier Shelf Expiration Date Model / Serial / Lot Graft Stent Viab [id number] - [id number] [place]ed:Q[place] 1 [place] [facility] [place] SFA [employer] 03/09/2017 [id number] / / [id number] Stent Complete Sc 6x60 - [id number] Implanted:Qty : 1 on 07/23/2016 by Erwin O[place] [facility] [place]: Popliteal Artery [employer] : VASCULAR 02/25/2018 [id number] / / [id number] Graft Stent Viab [id number] - [id number] - [id number] Implanted:Qty : 1 on 01/12/2017 by Erwin O[place] [facility] [place]: SFA [employer] 10/01/2019 [id number] / [id number] / Stent Peripheral 7 Diam 150x20 - [id number] Implanted:Qty : 1 on 09/01/2019 by Erwin O[place] [facility] [place]: SFA [employer] : VASCULAR [id number] 01/12/2022 [id number] / / [id number] Device [facility] Cls Cadn Mynx6/7fr - [id number] Implanted:Qty : 1 on 02/21/2022 by Erwin Olsen [place] [facility] [place] [facility] [employer] [id number] 01/07/2023 [id number] / / [id number] documented as of this encounter Visit Diagnoses Diagnosis PAD (peripheral artery disease) (HCC)- Primary Peripheral vascular disease, unspecified Chronic kidney disease, stage 4 (severe) ([facility]) documented in this encounter Advance Directives Latest [...] the patient have Health Care Power of Frame Builder? No Care Teams Supervisor Weaving Relationship Specialty Start Date End Date Kerline Sotelo DO [address] [place] [address] PCP - General Family Medicine 03/29/23 documented as of this encounter
--- OUTSIDE RECORDS SUMMARY | 2023-10-21 00:20 | External Medical Summary | Summary of Care ---
Author Name Unknown Organization [facility] Address [address] [place] [address] Phone [phone] Care Team Providers Care Brim Molder Name Role Phone Kerline Sotelo DO Primary Care Provider + [phone] Reason for Visit * Reason Comments Medication Refill Encounter Details Date Type Department Care Team ([facility] st Contact Info) Description 09/21/2023 Refill Nephrology, [facility] 200 [facility] [place] [address] Kindra Blount MD 200 [facility] [place] [address] Hypertensive kidney disease with chronic kidney disease stage III (HCC); Thoracic aortic aneurysm without rupture (HCC); Hypertensive kidney disease with stage 3b chronic kidney disease (HCC); HTN, goal below 130/80; Labile blood pressure Allergies No known active allergiesdocumented as of this encounter (statuses as of 09/21/2023) Medications Medication Sig Dispensed Refills Start Date [...] 90 Tablet 3 3 12/07/19 24 Active Insulin Pen Needle [...] TIMES A DAY 400 Strip 3 3 12/30/19 24 Active Lisinopril 40 MG Oral Tablet TAKE ONE TABLET BY MOUTH EVERY DAY IN THE MORNING 90 Tablet 2 3 11/26/19 24 Active Additional Information Patient taking differently: 20 mg, Reported on 02/18/2023 Clopidogrel Bisulfate 75 MG Oral Tablet (pLAVix)Indications :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) [...] 180 Capsule 3 4 09/20/19 25 Active Terazosin HCl 2 MG Oral CapsuleIndications: Hypertensive kidney disease with chronic kidney disease stage III (HCC),Thoracic aortic aneurysm without rupture (HCC),Hypertensive kidney disease with stage 3b chronic kidney disease (HCC),HTN, goal below 130/80,Labile blood pressure TAKE TWO CAPSULES BY MOUTH AT BEDTIME 180 Capsule 3 3 09/21/19 24 Discontinu ed(Refill) documented as of this encounter (statuses as of 09/21/2023) Active Problems Problem Noted Date Diagnosed Date [...] Secondary hyperparathyroidism of renal origin Atherosclerosis of [place] ar teries of the extremities with ulceration [...] bilateral 05/28/2020 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[place] coronary artery without angina pectoris 05/28/2020 Diabetes [...] as of this encounter (statuses as of 09/21/2023) Resolved Problems Problem Noted Date Diagnosed Date [...] as of this encounter (statuses as of 09/21/2023) Immunizations Name Administration Dates Next Due COVID-19 Whole Virus, Rollins Vac, 2-Dose Series ([employer]) 06/10/2021,11/08/2020,10/08/2020 Pneumococcal Polysaccharide PPV23 (Pneumovax) 05/19/2013 Seasonal [...] encounter Miscellaneous Notes * Telephone Encounter - Marychuy Hernandez MD - 09/21/2023 1:06 PM ESTSigned Prescriptions: Disp Refills Terazosin HCl 2 MG Oral Capsule 180 Ca*3 Sig: TAKE TWO CAPSULES BY MOUTH AT BEDTIME Authorizing Provider: MARYCHUY HERNANDEZ * Telephone Encounter - Leonela Burleson RN - 09/21/2023 12:42 PM ESTPending Prescriptions: Disp Refills Terazosin HCl 2 MG Oral Capsule 180 Ca*3 Sig: TAKE TWO CAPSULES BY MOUTH AT BEDTIME * Telephone Encounter - Leonela Burleson RN - 09/21/2023 12:23 PM EST Prescription request received from pharmacy pending. Please authorize. Last OV 09/17/2023 documented in this encounter Plan of Treatment Upcoming Encounters Date Type Department Care Team (Latest Contact Info) Description 10/21/2023 9:00 AM EDT Hospital Encounter [facility] [place], Cardiac Recovery Suite Waiting Unit, [address] [place] [address] Rao Espinoza MD [address] [place] [address] 10/21/2023 9:00 AM EDT - 10/21/2023 10:00 AM EDT Surgery [facility] [place], Cardiac Recovery Suite Waiting Unit, H [address] [place] [address] Rao Espinoza MD [address] [place] [address] CORONARY ANGIOGRAPHY W/LEFT HEART CATH 10/21/2023 9:00 AM EDT [facility] [address] [place] [address] [facility] Cardiac [facility] [address] [place] [address] 10/26/2023 1:00 PM EDT Office Visit Family Practice [facility] 293 [place] [address] Kerline Sotelo DO 293 [place] [address] 10/27/2023 9:00 AM EDT Office Visit Podiatry [facility] [address] [facility] [place], [place] [address] Angeles Arciniega, [place] [address] [place] [place] [address] 11/27/2023 8:30 AM EDT Office Visit Cardiology, [facility] 132 [facility] [place] [address] Odilia Arce CRNP [address] [place] [address] 03/02/2024 10:30 AM EDT Imaging Vascular Lab, [facility] 2nd [facility], [address] [place] [address] 03/02/2024 11:30 AM EDT Imaging Vascular Lab, [facility]nd [facility], [address] [address] 03/09/2024 8:30 AM EDT Office Visit Vascular Surgery, [facility] 132 [facility] [place] [address] Erwin Olsen MD [address] [place] [address] Scheduled Procedures Name Priority Associated [...] this encounter Medical Devices Implanted Type Area Geothermal Sheet Metal Worker Device Identifier Shelf Expiration Date Model / Serial / Lot Graft Stent Viab 3mbf0ga - [id number] Implanted:Qty : 1 on 05/01/2014 at OR [facility] Left: SFA [employer] 03/09/2017 [id number] / / [id number] Stent Complete [place] 6x60 - [id number] Implanted:Qty : 1 on 07/23/2016 by Erwin Olsen MD at OR [facility] Left: Popliteal Artery [employer] : VASCULAR 02/25/2018 [id number] / / [id number] Graft Stent Viab [id number] - [id number] - [id number] Implanted:Qty : 1 on 01/12/2017 by Erwin Olsen MD at OR [facility] Right: SFA [employer] 10/01/2019 [id number] 02A / [id number] / Stent Peripheral 7 Diam 150x20 - [id number] Implanted:Qty : 1 on 09/01/2019 by Erwin Olsen MD at OR [facility] Left: SFA [employer] : VASCULAR [id number] 01/12/2022 [id number] -020-150 / / [id number] Device Vasc Cls Cadn Mynx6/7fr - [id number] Implanted:Qty : 1 on 02/21/2022 by Erwin Olsen MD at OR [facility] [id number] 01/07/2023 [id number] / / [id number] documented as of this encounter Visit Diagnoses Diagnosis Hypertensive kidney disease with chronic kidney disease stage III (HCC) Unspecified hypertensive kidney disease with chronic kidney disease stage I through stage IV, or unspecified Thoracic aortic aneurysm without rupture (HCC) Thoracic aneurysm without mention of rupture Hypertensive kidney disease with stage 3b chronic kidney disease (HCC) HTN, goal below 130/80 Unspecified essential hypertension Labile blood pressure Elevated blood pressure reading without diagnosis of hypertension Chest pain Chest pain, unspecified ARRIAGA [...] the patient have Health Care Power of Cook Helper? No Care Teams Brim Molder Relationship Specialty Start Date End Date Kerline Sotelo DO [address] [place] [address] PCP - General Family Medicine 03/29/23 documented as of this encounter
--- OUTSIDE RECORDS SUMMARY | 2023-10-21 00:20 | External Medical Summary | Summary of Care ---
Author Name Unknown Organization [facility] Address [address] [place] [address] Phone [phone] Care Team Providers Care Rental Manager Name Role Phone MarleneKerline chinchilla Primary Care Provider + [phone] Encounter Details Date Type Department Care Team (Late st Contact Info) Description 09/19/2023 Orders Only PATIENT PORTAL DO NOT DELETE THIS DEPT USED BY [place] [address] Allergies No known active allergiesdocumented as of this encounter (statuses as of 09/19/2023) Medications Medication Sig Dispensed Refills Start Date End Date Status ASPIRIN LOW DOSE 81 MG PO TABSIndications:Othe r specified prophylactic or treatment measure 1 TABLET DAILY 30 Tab 11 05/19/2013 Active Blood Glucose Monitoring Suppl (ONETOUCH VERIO) w/Device KITIndications:[facility] [place] glucose Use up to 4 times [...] MOUTH EVERY MORNING 45 Tablet 3 02/02/2023 06/25/202 4 Active amLODIPine Besylate 10 MG Oral [...] 75 MG Oral Tablet (pLAVix)Indications: 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) [...] 05/19/2023 Active Gabapentin 100 MG Oral Capsule (Neurontin)Shakatio ns:Sensory neuropathy TAKE ONE CAPSULE BY MOUTH THREE TIMES A DAY -- IN THE MORNING, AT NOON AND BEFORE BEDTIME 90 Capsule 5 08/05/2023 Active documented as of this encounter (statuses as of 09/19/2023) Active Problems Problem Noted Date Diagnosed Date [...] Secondary hyperparathyroidism of renal origin Atherosclerosis of [place] ar teries of the extremities with ulceration [...] bilateral 05/28/2020 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[place] coronary artery without angina pectoris 05/28/2020 Diabetes [...] as of this encounter (statuses as of 09/19/2023) Resolved Problems Problem Noted Date Diagnosed Date [...] as of this encounter (statuses as of 09/19/2023) Immunizations Name Administration Dates Next Due COVID-19 Whole Virus, Rollins Vac, 2-Dose Series ([employer]) 06/10/2021,11/08/2020,10/08/2020 Pneumococcal Polysaccharide PPV23 (Pneumovax) 05/19/2013 [...] Recovery Suite Waiting Unit, H [address] [place] [address] Rao Espinoza MD [address] [place] [address] 10/21/2023 9:00 AM EDT - 10/21/2023 10:00 AM EDT Surgery [facility], Cardiac Recovery Suite Waiting Unit, H [address] [place] [address] Roa Espinoza MD [address] [place] [address] CORONARY ANGIOGRAPHY W/LEFT HEART CATH 10/21/2023 9:00 AM EDT [facility] [address] [place] [address] [facility] Cardiac [facility] [address] [place] [address] 10/26/2023 1:00 PM EDT Office Visit Family Practice [address] [place] [address] 293 [facility] [place] [address] Kerline Sotelo DO 293 [facility] [place] [address] 10/27/2023 9:00 AM EDT Office Visit Podiatry [facility] 132 [facility] [place] [address] Angeles Arciniega, MERLY [address] [place] [address] 11/27/2023 8:30 AM EDT Office Visit Cardiology, [facility] [address] [place] [address] Odilia Arce CRNP [address] [place] [address] 03/02/2024 8:00 AM EDT Imaging Vascular Lab, [facility] 2nd [facility], [place] 132 [facility] [address] 03/02/2024 9:00 AM EDT Imaging Vascular Lab, [facility], [place] 132 [facility] [address] 03/09/2024 8:30 AM EDT Office Visit Vascular Surgery, [facility] 132 [place] [address] Erwin Olsen MD [address] [place] [address] Scheduled Procedures Name Priority Associated Diagnoses Date/Ti [...] this encounter Medical Devices Implanted Type Area Manufacturing Maintenance Technician Device Identifier Shelf Expiration Date Model / Serial / Lot Graft Stent Viab 7hve4vd - [id number] Implanted:Qty : 1 on 05/01/2014 at [place] [facility] [place] Left: SFA [employer] 03/09/2017 [id number] / / [id number] Stent Complete Dc 6x60 - [id number] Implanted:Qty : 1 on 07/23/2016 by Erwin Olsen MD at OR [facility] [place] Left: Popliteal Artery [employer] : VASCULAR 02/25/2018 [id number] / / [id number] Graft Stent Viab 6syd2of - [id number] - [id number] Implanted:Qty : 1 on 01/12/2017 by Erwin Olsen MD at [place] [facility] [place] Right: SFA [employer] 10/01/2019 [id number] 02A / [id number] / Stent Peripheral 7 Diam 150x20 - [id number] Implanted:Qty : 1 on 09/01/2019 by Erwin Olsen MD at [place] [facility] [place] Left: SFA [employer] : VASCULAR [id number] 01/12/2022 [id number] -020-150 / / [id number] Device Vasc Cls Cadn Mynx6/7fr - [id number] Implanted:Qty : 1 on 02/21/2022 by Erwin Olsen MD at [place] [facility] [place] [employer]ASCULAR [employer] [id number] 01/07/2023 [id number] / / [id number] documented as of this encounter Advance Directives [...] 01/12/2017 12:17 PM 01/13/2017 8:49 PM This order reflects the patients wishes and were consensually agreed upon. Full Code 07/23/2016 3:18 PM 07/24/2016 2:23 PM Question Answer Comments Discussion of Advance Directives occurred with: Not Discussed Does the patient have a Living Will? No Does the patient have Health Care Power of Managing Supervisor? No Care Teams Rental Manager Relationship Specialty Start Date End Date Kerline Sotelo DO 293 [facility] [place] [address] PCP - General Family Medicine 03/29/23 documented as of this encounter
--- OUTSIDE RECORDS SUMMARY | 2023-10-21 00:20 | External Medical Summary ---
Author Name Unknown Address Unknown Organization [id number]:[facility] [place] - [address] [place] [address] Laboratory Report Ordering Provider Test Date Status AMANDA DIAMOND 09/16/2023 10:58:52 Final Observation Date Value Abnormality Reference (Units ) Status Hemoglobin 09/16/2023 10:58:52 11.1 Below low normal 14 .0-16.8 (g/dL) Final Performing Location [facility] - [address] [place] [address]
--- OUTSIDE RECORDS SUMMARY | 2023-10-21 00:20 | External Medical Summary ---
Author Name Unknown Address Unknown Organization K01:[facility] - [address] [place] [address] Laboratory Report Ordering Provider Test Date Status AMANDA DIAMOND 09/16/2023 10:58:52 Final Observation Date Value Abnormality Reference (Units ) Status Phosphate 09/16/2023 10:58:52 5.4 Above high normal 2. 5-4.8 (mg/dL) Final Performing Location [facility] - [address] [place] [address]
--- OUTSIDE RECORDS SUMMARY | 2023-10-21 00:20 | External Medical Summary | Summary of Care ---
Author Name Unknown Organization [facility] Address [address] [place] [address] Phone [phone] Care Team Providers Care Iron Melter Name Role Phone Kerline Sotelo DO Primary Care Provider + [phone] Reason for Visit * Reason Comments Follow Up Rm # 6 Encounter Details Date Type Department Care Team ([facility] st Contact Info) Description 09/18/2023 10:30 AM EST Office Visit Cardiology, [facility] [address] [place] [address] Odilia Arce CRNP [address] [facility] [address] ARRIAGA (dyspnea on exertion)*; ASCVD (arteriosclerotic cardiovascular disease); Chronic diastolic congestive heart failure (HCC); HTN, goal below 140/90; Ascending aorta dilatation (HCC); Dyslipidemia, goal LDL below 70; Renal dysfunction Allergies No known active allergiesdocumented as of this encounter (statuses as of 09/18/2023) Medications Medication Sig Dispensed Refills Start Date [...] TIMES A DAY 400 Strip 3 3 10/02/19 24 Active Terazosin HCl 2 MG Oral CapsuleIndications: Hypertensive kidney disease with chronic kidney disease stage III (HCC),Thoracic aortic aneurysm without rupture (HCC),Hypertensive kidney disease with stage 3b chronic kidney disease (HCC),HTN, goal below 130/80,Labile blood pressure TAKE TWO CAPSULES BY MOUTH AT BEDTIME 180 Capsule 3 3 09/29/19 24 Active Lisinopril 40 MG Oral Tablet TAKE ONE TABLET BY MOUTH EVERY DAY IN THE MORNING 90 Tablet 2 3 11/26/19 24 Active Additional Information Patient taking differently: 20 mg, Reported on 02/18/2023 Clopidogrel Bisulfate 75 MG Oral Tablet (pLAVix)Indications :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 20 Tablet 0 3 09/18/19 24 Discontinu ed(Medicat ion List Clean Up) documented as of this encounter (statuses as of 09/18/2023) Active Problems Problem Noted Date Diagnosed Date [...] Secondary hyperparathyroidism of renal origin Atherosclerosis of wainwright ar teries of the extremities with ulceration [...] bilateral 05/28/2020 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wainwright coronary artery without angina pectoris 05/28/2020 Diabetes [...] as of this encounter (statuses as of 09/18/2023) Resolved Problems Problem Noted Date Diagnosed Date [...] as of this encounter (statuses as of 09/18/2023) Immunizations Name Administration Dates Next Due COVID-19 Whole Virus, Rollins Vac, 2-Dose Series (Ventrix) 06/10/2021,11/08/2020,10/08/2020 Pneumococcal Polysaccharide PPV23 (Pneumovax) 05/19/2013 Seasonal [...] Past Smokeless Tobacco: Never Tobacco Cessation:Counseling Given: Not Answered Alcohol Use Standard Drinks/Week Comments No 0 [...] Sign Reading Time Taken Comments Blood Pressure 160/76 09/18/2023 10:24 AM EST Pulse 76 09/18/2023 10:24 AM EST Temperature - - Respiratory Rate - - Oxygen Saturation - - Inhaled Oxygen Concentration - - Weight 92.1 kg (203 lb) 09/18/2023 10:24 AM EST Height 182.9 cm (6') 09/18/2023 10:24 AM EST Body Mass Index 27.53 09/18/2023 10:24 AM EST documented in this encounter Functional [...] as of this encounter Progress Notes * Odilia Arce CRNP - 09/18/2023 10:30 AM EST 09/18/23 Cardiology Follow Up Primary Cloth Beamer: Chele Alvarenga PA-C Cardiac Problems: Nonobstructive CAD. Peripheral vascular disease. Followed by [facility] Vascular Surgery. Labile hypertension Thoracic aortic aneurysm Dyslipidemia Longstanding type II diabetes mellitus with stage III-IV chronic kidney disease Family history of ischemic heart disease. HPI: Miguel Heller is a 68 year old male presents for acute evaluation of dyspnea. Last seen in the office by the undersigned August 2023 He was seen in the office by his PCP for concerns of headaches and right eye sensitivity, and symptoms of conjunctivitis. During course of evaluation, the patient did mention that he is having worsening shortness of breath with exertion over the past several months. He states that he is noticing that it has become too difficult to continue his current job and has opted to resign. Patient did endorse having a recent viral illness over the past few weeks with URI symptoms, N/V/D.He states that his breathing had gotten worse for a few days, but has since returned to baseline. Patient expresses concern that his symptoms are likely thought to be ischemic in nature given priortesting, and current presentation, but has held off on pursuing a cardiac cath for fear of needing dialysis. At time of that visit, we dicussed in detail recommendation to To pursue cardiac catheterization. We also discuss risk for further insult to kidneys given the need for dye. Patient was to meet with Nephrology to discuss pursuing plan for PD as dialysis will likely need it soon to follow up procedure. Patient presents today feeling ok. Continues with his same symptoms. Unchanged. He was seen by Nephrology yesterday and has decided Blood pressure today is above target although this has been reported in the last few weeks. Patient reports compliance on all medication therapies with no untoward effects. REVIEW OF SYSTEMS: See HPI for pertinent positives. All others negative other than those noted in the HPI. CONSTITUTIONAL: No change in weight, No weakness, No fatigue and No fevers, No sweats or chills. PULMONARY: No cough, sputum, or hemoptysis, No wheezing, No shortness or breath and No recent change in breathing. CARDIOVASCULAR: No chest pain, No dyspnea on exertion, No edema, No palpitations and No syncope. GASTROINTESTINAL: No abdominal pain, No change in bowel habits, No significant heartburn, No nausea, No vomiting, No diarrhea, No constipation, No blood in stools or black tarry stools. No dysphagia. HEMATOLOGIC: No abnormal bleeding and No bruising. NEUROLOGICAL: Normal balance, No headaches and No weakness. Review of patient's allergies indicates: No Known Allergies Current Outpatient Medications Medication Sig Dispense Refill ASPIRIN LOW DOSE 81 MG PO TABS 1 TABLET DAILY 30 Tab 11 Melatonin 10 MG Oral Tablet Take 1 [...] BY MOUTH EVERY MORNING 90 Tablet 3 Lantus SoloStar 100 UNIT/ML Subcutaneous Solution Pen-injector INJECT 18 UNITS UNDER THE SKIN ONCE DAILY (Patient taking differently: Inject 34 Units under the skin in the morning.) 30 mL 3 Terazosin HCl 2 MG Oral Capsule TAKE TWO CAPSULES BY MOUTH AT BEDTIME 180 Capsule 3 Lisinopril 40 MG Oral Tablet TAKE ONE TABLET BY MOUTH EVERY DAY IN THE MORNING (Patient taking differently: 0.5 Tablets.) 90 Tablet 2 Clopidogrel Bisulfate 75 MG Oral Tablet (pLAVix) TAKE ONE TABLET BY MOUTH EVERY DAY IN THE MORNING 100 Tablet 3 Allopurinol 100 MG Oral Tablet (Zyloprim) Take [...] 2 times a day. 300 Tablet 3 Veltassa 8.4 GM Oral Packet (Patiromer Sorbitex [...] NOON AND BEFORE BEDTIME 90 Capsule 5 Blood Glucose Monitoring Suppl (Kermdinger StudiosTOUCH VERIO) w/Device KIT Use up to 4 times a day E11.9 1 Kit 0 ONETOUCH DELICA LANCETS 33G MISC test blood sugars up to four times daily. ICD- 10: E11.9 100 Each 11 Spacer/Aero-Holding Chambers Device Use with inhaler. (Patient not taking: Reported on 09/17/2023) 1 Each 0 Insulin Pen Needle 31G X 6 MM USE WITH LANTUS ONCE DAILY OR DIRECTED 300 Each 3 Glucose Blood In Vitro Strip USE TO TEST BLOOD SUGAR FOUR TIMES A DAY 400 Strip 3 FreeStyle Juju 2 Sensor Use as directed. Every 14 days (Patient not taking: Reported on 09/17/2023) 2 Each 0 No current facility-administered medications for this visit. 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) Nonproliferative diabetic retinopathy (HCC) Family History Problem Relation Age of Onset Heart disease Mother in her late 60s Diabetes Father Heart Disorder Father Fatal HI in his mid 60s Hypertension Father No Known Problems Sister No Known Problems Sister No Known Problems Brother No Known Problems Brother Other (CKD/ESRD) None Glaucoma None Eye Problems None Denies family hx of retinal problems Cancer None Stroke None Other (Other) None Denies FmHx of AAA Social History Socioeconomic History Marital status: Single Number of children: 2 Occupational History Employer: Brother's [employer] Tobacco Use Smoking status: Never Passive exposure: Past Smokeless tobacco: Never Vaping Use Vaping Use: Never used Substance and Sexual Activity Alcohol use: No Comment: in the past, but not currently Drug use: No Social History Narrative Lives alone Social Determinants of Health Food Insecurity: No Food Insecurity (08/19/2023) Hunger Vital Sign Worried About Running Out of Food in the Last Year: Never true Ran Out of Food in the Last Year: Never true OBJECTIVE/PHYSICAL EXAMINATION: BP 160/76 (BP Site: Left Arm, BP Position: Sitting, BP Cuff Size: Large) | Pulse 76 | Ht 1.829 m (6') | Wt 92.1 kg (203 lb) | BMI 27.53 kg/m | BSA 2.16 m General: No acute distress. A+Ox3. HEENT: Normocephalic. Atraumatic. PERRL. EOMI. Conjunctiva and sclera clear. NECK: No carotid bruits. No JVD. Carotid upstrokes are brisk. Heart: RRR. S1 and S2 noted. No murmur. No rubs or gallops. PMI non displaced. Lungs: Clear to auscultation. No wheezes.No rhonchi. No rales. Abdomen: Normal bowel sounds. Soft. Nontender. No masses or organomegaly. No abdominal bruits. Extremities: No edema. No clubbing or cyanosis. Pulses: radial=2/4, posterior tibial=2/4, dorsalis pedis = 2/4. NEURO: No focal deficits. PSYCH: Appropriate affect and insight. DATA Labs & Imaging Reviewed Below: September 07, 2014 diagnostic cardiac catheterization performed at [facility] demonstrated diffuse moderate irregularities with normal hemodynamic values, and mild calcification of the aortic valve. Specific angiography revealed a normal left main, large caliber, mildly tortuous, and mildly diseased LAD coronary artery with a long 40% lesion in the proximal LAD, mildly disease mid LAD, and a distal LAD free of disease. The left circumflex was noted to be nondominant with up to 30% lesion noted in the 1st obtuse marginal branch. The right coronary artery was noted to be dominant, mildly tortuous, and mildly disease. There was a 30% proximal RCA stenosis with a mid and distal portion noted to be free of disease. April 2022 Zio monitor: Patient had a min HR of 50 bpm, max HR of 167 bpm, and avg HR of 67 bpm. Predominant underlying rhythm was Sinus Rhythm. 32 Supraventricular Tachycardia runs occurred, therun with the fastest interval lasting 17 beats with a max rate of 167 bpm, the longest lasting 14.1secs with an avg rate of 104 bpm. Isolated SVEs were rare (<1.0%), SVE Couplets were rare (<1.0%), and SVE Triplets were rare (<1.0%). Isolated VEs were occasional (5.0%, 01546), VE Coupletswere rare (<1.0%, 189), and VE Triplets were rare (<1.0%, 7). Ventricular Bigeminy and Trigeminy were present. Impression: Frequent runs of supraventricular tachycardia recorded, however, symptoms primarily correlate with sensed ventricular ectopy. October 29, 2022 TTE Interpretation Summary (as per Dr. Bucio): There was normal sinus rhythm during the examination. The LV wall thickness is mildly increased (concentric). There is subtle hypokinesis of the inferoseptum. The left ventricular ejection fraction is at the lower limit of normal to borderline reduced. Calculated LV ejection Fraction = 50% (three dimensional volumes). The left atrium is severely enlarged (>48 ml/m^2,). The left ventricular diastolic function is moderately abnormal (grade II). The left ventricular diastolic fillling pressure is elevated. Mild to moderate mitral regurgitation is present. The effective regurgitant orifice area as calculated by the PISA method =0.08 cm2 consistent with mild mitral regurgitation. There is a small circumferential pericardial effusion with most significant amount of focal fluid collection adjacent to the right ventricle and right atrium on the subcostal images. Cardiac tamponade is absent. The aortic root is mildly enlarged,4.2 cm. The proximal ascending thoracic aorta is mildly enlarged, 4.2 cm. December 02, 2022 IMANI Interpretation Summary (as per Dr. Bucio, ordered by Dr. Diop): The exercise stress echocardiogram is nondiagnostic for excluding ischemia due to low workload achieved, and failure to reach target heart rate. The resting heart of 63 beats per minute sin to a maximal heart rate of 86 beats per minute. This value represents 55% of the maximal age predicted heart rate. Patient is noted to be on high-dose carvedilol at baseline likely attenuating the heart rate response. Subtle hypokinesis of the inferoseptal wall present on the resting images the persisted on the post exercise images. The left ventricular systolic function remained unchanged post stress. There is a small circumferential pericardial effusion with most significant amount of focal fluid collection adjacent to the right ventricle and right atrium on the subcostal images. Cardiac tamponade is absent. The aortic root is mildly enlarged. The proximal ascending thoracic aorta is mildly enlarged. The mild aortic root and ascending aorta enlargement are unchanged compared to the recent complete resting study performed 10/29/2022. The small pericardial effusion is unchanged compared to the previous study dated 10/29/2022. EKG performed on April 09, 2023 personally reviewed, revealed sinus bradycardia 59 bpm with a first-degree AV block and occasional premature ventricular complexes, nonspecific ST-T wave abnormality.QTc 455 ms. ASSESSMENT/PLAN: 68 year old year old male ARRIAGA (dyspnea on exertion) (Primary) ASCVD (arteriosclerotic cardiovascular disease) -as discussed her prior visit patient has elected to proceed with cardiac catheterization. -he is also met with Nephrology yesterday to discuss risk versus benefit and has decided we will move forward with the heart cath -explained to patient that we will need to have labs and chest x-ray prior to her catheterization am also need preoperative IV fluid hydration as well as post hydration -we will notify Nephrology of date and plan to proceed with cardiac catheterization at [facility] they are to make arrangements with Nephrology as planned in the event you for emergency dialysis or other intervention -continue Coreg, Norvasc, aspirin 81 mg, Plavix 75 mg, - CARDIAC CATH-CARDIOLOGY ONLY - COMPREHENSIVE METABOLIC PANEL; Future; Expected date: 09/18/2023 - PT INR; Future; Expected date: 09/18/2023 - CBC; Future; Expected date: 09/18/2023 - XR CHEST 2 VIEWS Chronic diastolic congestive heart failure (HCC) -patient appears euvolemic on today's exam -continue Coreg, spironolactone HTN, goal below 140/90 -above target which has been multifactorial given his suspected coronary disease as well as known CKD -patient to continue all blood pressure medications as per current regimen including Coreg, Imdur, hydralazine, spironolactone, lisinopril, terazosin - CARDIAC CATH-CARDIOLOGY ONLY Ascending aorta dilatation (HCC) -stable on most recent echo we will monitor yearly Dyslipidemia, goal LDL below 70 -continue on aspirin 81 mg as well as atorvastatin Renal dysfunction -continue with close follow up with Nephrology -we will notify Nephrology of plan for cardiac catheterization and appreciate any input into his care during that time. Follow-up: Return in about 8 weeks (around 11/13/2023). | Check-out note: Follow up in 8-10 weeks with either Me or Chele. (Needs to have his heart cath at [facility] first) DISPOSITION: Follow up 8 weeks or if symptoms worsen/fail to improve. All questions were answered to the patients satisfaction. Patient advised to report to ED with any and all emergencies. The patient agrees to the above plan and will call with additional questions or concerns. HUGH Bocanegra Cardiology, [facility] [address] [facility] [place] [address] I spent a total of 46 minutes on the date of service in preparation, delivery, and documentation ofthe care provided to Miguel Heller excluding any time spent in the performance of separately billed services. This chart was completed in part utilizing [employer] Speech Voice Recognition Software. Grammatical errors, random word insertions, pronoun errors, and incomplete sentences are an occasional consequence of this system due to software limitations, ambient noise, and hardware issues. Any formal questions or concerns about the content, text, or information contained within the body of this dictation should be directly addressed to the provider for clarification. documented in this encounter Nursing Notes * Estrella Berry NRCMA - 09/18/2023 10:28 AM EST Examination Room: 6 Name: Miguel Heller Date of : (1955). Reason for Visit: follow up Interim Hospitalization(s): none recently Problems/Concerns: SOB/ARRIAGA which is worsening. Chest Pain/SOB: no CP. Medications were updated via: pt memory. My [facility] is a way you can talk to your provider online through e-mail. Would you like to sign up? I can activate it for you? ALREADY ACTIVE Patient was instructed to not get up on the exam table until directed and assisted by their provider; patient is to remain seated in the chair/ wheelchair/ exam table for fall prevention and safety reasons. Patient is aware to have assistance to step down off exam table with personnel. Patient voiced full comprehension of instructions. documented in this encounter Plan of Treatment Upcoming Encounters Date Type Department Care Team (Latest Contact Info) Description 10/21/2023 9:00 AM EDT Hospital Encounter [facility] Wait[facility] [address] [facility] [address] Rao Espinoza MD [address] [place] [address] 10/21/2023 9:00 AM EDT - 10/21/2023 10:00 AM EDT Surgery CRS Waiting [facility], Cardiac Recovery Suite Waiting Unit, [address] [place] [address] Rao Espinoza MD [address] [place] [address] CORONARY ANGIOGRAPHY W/LEFT HEART CATH 10/21/2023 9:00 AM EDT Office Visit Cardiology [facility], [place] [address] [place] [address] [facility] Cardiac Recovery [facility] [address] [place] [address] 10/26/2023 1:00 PM EDT Office Visit Family Practice [address] [place] [address] [address] [place] [address] Kerline Sotelo DO [address] [place] [address] 10/27/2023 9:00 AM EDT Office Visit Podiatry [facility] [address] [facility] [place] [address] Angeles Arciniega DPM [address] [place] [address] 11/27/2023 8:30 AM EDT Office Visit Cardiology, [facility] [address] [facility] [place] [id number] Odilia Arce CRNP [address] [place] [address] 03/02/2024 8:00 AM EDT Imaging Vascular Lab, [address] [place] [address] 03/02/2024 9:00 AM EDT Imaging Vascular Lab, [address] [place] [address] 03/09/2024 8:30 AM EDT Office Visit Vascular Surgery, [address] [place] [address] Erwin Olsen MD [address] [place] [address] Scheduled Orders Name Type Priority Associated Diagnoses Orde r Schedule CARDIAC CATH-CARDIOLOGY ONLY Procedures Routine ARRIAGA (dyspnea on exertion) ASCVD (arteriosclerotic cardiovascular disease) HTN, goal below 140/90 Ordered: 09/18/2023 COMPREHENSIVE METABOLIC PANEL Lab Routine ARRIAGA (dyspnea on exertion) ASCVD (arteriosclerotic cardiovascular disease) Expected: 09/18/2023, Expires: 09/18/2024 PT INR Lab Routine ARRIAGA (dyspnea on exertion) ASCVD (arteriosclerotic cardiovascular disease) Expected: 09/18/2023, Expires: 09/18/2024 CBC Lab Routine ARRIAGA (dyspnea on exertion) ASCVD (arteriosclerotic cardiovascular disease) Expected: 09/18/2023, Expires: 09/18/2024 XR CHEST 2 VIEWS Medical Imaging Routine ARRIAGA (dyspnea on exertion) ASCVD (arteriosclerotic cardiovascular disease) Ordered: 09/18/2023 Scheduled Procedures Name Priority Associated Diagnoses Date/Ti [...] this encounter Medical Devices Implanted Type Area Asphalt Paver Operator Device Identifier Shelf Expiration Date Model / Serial / Lot Graft Stent Viab [id number] - [id number] Implanted:Qty : 1 on 05/01/2014 at OR [facility] Left: [employer] 03/09/2017 [id number] / / [id number] Stent Complete Ri 6x60 - [id number] Implanted:Qty : 1 on 07/23/2016 by Erwin Olsen MD at OR [facility] Left: Popliteal Artery [employer] : VASCULAR 02/25/2018 [id number] / / [id number] Graft Stent Viab [id number] - [id number] - [id number] Implanted:Qty : 1 on 01/12/2017 by Erwin Olsen MD at OR [facility] Right: SFA [employer] 10/01/2019 [id number] / [id number] / Stent Peripheral 7 Diam 150x20 - [id number] Implanted:Qty : 1 on 09/01/2019 by Erwin Olsen MD at OR [facility] Left: SFA [employer] : VASCULAR [id number] 01/12/2022 [id number] / / [id number] Device Vasc Cls Cadn Mynx6/[id number] - [id number] Implanted:Qty : 1 on 02/21/2022 by Erwin Olsen MD at OR [facility] CARDIOVASCULAR [employer]YNAMICS [id number] 01/07/2023 [id number] / / [id number] documented as of this encounter Visit Diagnoses Diagnosis RARIAGA (dyspnea on exertion)- Primary Other dyspnea and respiratory abnormality ASCVD (arteriosclerotic cardiovascular disease) Unspecified cardiovascular disease Chronic diastolic congestive heart failure (HCC) Chronic diastolic heart failure HTN, goal below 140/90 Unspecified essential hypertension Ascending aorta dilatation (HCC) Thoracic aortic ectasia Dyslipidemia, goal LDL below 70 Other and unspecified hyperlipidemia Renal dysfunction Unspecified disorder of kidney and ureter Chest pain Chest pain, unspecified ARRIAGA (dyspnea [...] the patient have Health Care Power of Telecommunications Field Technician? No Care Teams Iron Melter Relationship Specialty Start Date End Date Kerline Sotelo DO [address] [place] [address] PCP - General Family Medicine 03/29/23 documented as of this encounter"
--- OUTSIDE RECORDS SUMMARY | 2023-10-21 00:20 | External Medical Summary ---
Author Name Unknown Address Unknown Organization [id number]:LABORATORY [facility] - [address] [facility] [address] Laboratory Report Ordering Provider Test Date Status LOBOPATEL 09/16/2023 10:58:52 Final Observation Date Value Abnormality Reference (Units ) Status BUN 09/16/2023 10:58:52 61 Above high normal 6-20 (mg/dL) Final Creatinine 09/16/2023 10:58:52 4.2 Above high normal 0.6-1.2 (mg/dL) Final Glomerular filtration rate/1.73 sq M.predicted [Volume Rate/Area] in Serum, Plasma or Blood by Creatinine-based formula (CKD-EPI) 09/16/2023 10:58:52 15 Below low normal >=60 (mL/min) Final eGFR is calculated based on the CKD-EPI 2020 equation SODIUM 09/16/2023 10:58:52 137 135-146 (m mol/L) Final Potassium 09/16/2023 10:58:52 4.7 3.5-5.1 (m mol/L) Final Cl 09/16/2023 10:58:52 101 98-107 (mm ol/L) Final CO2 09/16/2023 10:58:52 22 22-32 (mmo l/L) Final Anion gap 09/16/2023 10:58:52 14 7-15 (mmol /L) Final Glucose 09/16/2023 10:58:52 194 Above high normal 70 -120 (mg/dL) Final Calcium 09/16/2023 10:58:52 9.6 8.4-10.2 ( mg/dL) Final Performing Location LABOR[facility]ORY [facility] - [address] [place] [address]
--- OUTSIDE RECORDS SUMMARY | 2023-10-21 00:21 | External Medical Summary | Summary of Care ---
Author Name Unknown Organization [facility] Address [address] [place] [address] Phone [phone] Care Team Providers Care Uat Tester Name Role Phone MarleneKerline chinchilla Ludy CASTELLANO Primary Care Provider + [phone] Reason for Visit * Reason Onset Date Comments Home Monitoring Alarm 08/31/2023 Encounter Details Date Type Department Care Team (Late st Contact Info) Description 08/31/2023 Home Monitoring Care Coordination [address] [place] [address] Brie Coelho LPN HTN, goal below 140/90* Allergies No known active allergiesdocumented as of this encounter (statuses as of 08/31/2023) Medications Medication Sig Dispensed Refills Start Date End Date Status ASPIRIN LOW DOSE 81 MG PO TABSIndications:Othe r specified prophylactic or treatment measure 1 TABLET DAILY 30 Tab 11 05/19/2013 Active Blood Glucose Monitoring Suppl (ONETOUCH VERIO) w/Device KITIndications:[place] corwin glucose Use up to 4 times [...] BEDTIME 405 Tablet 3 12/12/2022 4 Active Isosorbide Mononitrate ER 60 MG Oral Tablet [...] DAILY 30 mL 3 11/20/2022 4 Active Glucose Blood In Vitro Strip USE TO [...] 75 MG Oral Tablet (pLAVix)Indications: 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 30 Capsule 5 05/19/2023 Active Gabapentin 100 MG Oral Capsule (Neurontin)Shakatio ns:Sensory neuropathy TAKE ONE CAPSULE BY MOUTH THREE TIMES A DAY -- IN THE MORNING, AT NOON AND BEFORE BEDTIME 90 Capsule 5 08/05/2023 Active documented as of this encounter (statuses as of 08/31/2023) Active Problems Problem Noted Date Diagnosed Date [...] Secondary hyperparathyroidism of renal origin Atherosclerosis of [place] ar teries of the extremities with ulceration [...] bilateral 05/28/2020 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[place] coronary artery without angina pectoris 05/28/2020 Diabetes [...] as of this encounter (statuses as of 08/31/2023) Resolved Problems Problem Noted Date Diagnosed Date [...] as of this encounter (statuses as of 08/31/2023) Immunizations Name Administration Dates Next Due COVID-19 Whole Virus, Rollins Vac, 2-Dose Series (Miappi) 06/10/2021,11/08/2020,10/08/2020 Pneumococcal Polysaccharide PPV23 (Pneumovax) 05/19/2013 Seasonal [...] Progress Notes * Brie Coelho LPN - 08/31/2023 11:50 AM EST Miguel Kunz [id number] Miguel Kunz is currently participating in the [facility] Hypertension Management Program and had a reading on 08/31/23 of 137/73. Pt has alerted for an Average BP over 7 days > 140/90 . Parameters are currently set as follows: Average BP over 7 days > 140/90 Singular Systolic BP Reading < 90 or > 180 Singular Diastolic BP Reading <50 or > 120 Patient is not reporting new symptoms or concerns. Return text, pt has no new symptoms to report. notes he just completed course of abx for sinus infection. Please review the recent history of home [...] 2:50 PM EST Office Visit Vascular Surgery, [facility] [address] [facility] [place] [address] Erwin Olsen MD [address] [facility] [place] [address] 09/24/2023 4:00 PM EST Office Visit Dermatology[address] [phone] Arabella Motta PA-C [address] [place] [address] [place] [address] 10/19/2023 8:30 AM EDT Office Visit Cardiology, [facility] [address] [facility] [place] [address] Chele Alvarenga PA-C [address] [place] [address] 10/26/2023 1:00 PM EDT Office Visit Family Practice [address] [place] [address], [place] 293 [place] [phone] Kerline Sotelo DO 293 [facility] [place], [place] [address] 10/27/2023 9:00 AM EDT Office Visit Podiatry [facility] 132 [facility] [place] [address] [place] Arciniega, [place] 132 [facility] [place] [address] Scheduled Procedures Name Priority Associated Diagnoses Date/Ti [...] this encounter Medical Devices Implanted Type Area Financial Analyst Device Identifier Shelf Expiration Date Model / Serial / Lot Graft Stent Viab [id number] - [id number] Implanted:Qty : 1 on 05/01/2014 at OR [facility] [place] Left: SFA [employer] 03/09/2017 [id number] / / [id number] Stent Complete Sc 6x60 - [id number] Implanted:Qty : 1 on 07/23/2016 by Erwin Olsen MD at OR [facility] [place] Left: Popliteal Artery [employer] : VASCULAR 02/25/2018 [id number] / / [id number] Graft Stent Viab 5kld6ek - [id number] - [id number] Implanted:Qty : 1 on 01/12/2017 by Erwin Olsen MD at OR [facility] [place] Right: SFA [employer] 10/01/2019 [id number] 02A / [id number] / Stent Peripheral 7 Diam 150x20 - [id number] Implanted:Qty : 1 on 09/01/2019 by Erwin Olsen MD at OR [facility] [place] Left: SFA [employer] : VASCULAR [id number] 01/12/2022 [id number] -020-150 / / [id number] Device Vasc Cls Cadn Mynx6/7fr - [id number] Implanted:Qty : 1 on 02/21/2022 by Erwin Olsen MD at OR [facility] [place] CARDIOVASCULAR DYNAMICS [id number] 01/07/2023 [id number] / / [id number] documented as of this encounter Visit Diagnoses Diagnosis HTN, goal below 140/90- Primary Unspecified essential hypertension documented in this encounter Advance Directives Latest [...] the patient have Health Care Power of Customer Acquisition Manager? No Care Teams Uat Tester Relationship Specialty Start Date End Date Kerline Sotelo DO 293 [facility] [place] [address] PCP - General Family Medicine 03/29/23 documented as of this encounter
--- OUTSIDE RECORDS SUMMARY | 2023-10-21 00:21 | External Medical Summary ---
Author Name Unknown Address Unknown Organization K0G:[facility] - [address] [place] [address] Laboratory Report Ordering Provider Test Date Status AMANDA DIAMOND 09/02/2023 14:45:28 Final Observation Date Value Abnormality Reference (Units ) Status BUN 09/02/2023 14:45:28 59 Above high normal 6-20 (mg/dL) Final Creatinine 09/02/2023 14:45:28 3.5 Above high normal 0.6-1.2 (mg/dL) Final Glomerular filtration rate/1.73 sq M.predicted [Volume Rate/Area] in Serum, Plasma or Blood by Creatinine-based formula (CKD-EPI) 09/02/2023 14:45:28 19 Below low normal >=60 (mL/min) Final eGFR is calculated based on the CKD-EPI 2020 equation SODIUM 09/02/2023 14:45:28 136 135-146 (m mol/L) Final Potassium 09/02/2023 14:45:28 5.2 Above high normal 3. 5-5.1 (mmol/L) Final Cl 09/02/2023 14:45:28 102 98-107 (mm ol/L) Final CO2 09/02/2023 14:45:28 22 22-32 (mmo l/L) Final Anion gap 09/02/2023 14:45:28 12 7-15 (mmol /L) Final Glucose 09/02/2023 14:45:28 242 Above high normal 70 -120 (mg/dL) Final Calcium 09/02/2023 14:45:28 9.3 8.4-10.2 ( mg/dL) Final Performing Location [facility] 0 - [address] [place] [address]
--- OUTSIDE RECORDS SUMMARY | 2023-10-21 00:21 | External Medical Summary | Summary of Care ---
Author Name Unknown Organization [facility] Address [address] [place] [address] Phone [phone] Care Team Providers Care Hanger Name Role Phone MarleneKerline chinchilla Ludy CASTELLANO Primary Care Provider + [phone] Reason for Visit * Reason Onset Date Comments Home Monitoring Alarm 08/31/2023 Encounter Details Date Type Department Care Team (Late st Contact Info) Description 08/31/2023 Home Monitoring Care Coordination [address] [place] [address] Brie Coelho LPN HTN, goal below 140/90* Allergies No known active allergiesdocumented as of this encounter (statuses as of 08/31/2023) Medications Medication Sig Dispensed Refills Start Date End Date Status ASPIRIN LOW DOSE 81 MG PO TABSIndications:Othe r specified prophylactic or treatment measure 1 TABLET DAILY 30 Tab 11 05/19/2013 Active Blood Glucose Monitoring Suppl (ONETOUCH VERIO) w/Device KITIndications:[place] crowin glucose Use up to 4 times a [...] 75 MG Oral Tablet (pLAVix)Indications: 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 132 [facility] [place] [address] Erwin Olsen MD [address] [facility] [place] [address] 09/24/2023 4:00 PM EST Office Visit Dermatology[address] [phone] Arabella Motta PA-C [address] [place] [address] [place] [address] 10/19/2023 8:30 AM EDT Office Visit Cardiology, [facility] [address] [facility] [place] [address] Chele Alvarenga PA-C [address] [place] [address] 10/26/2023 1:00 PM EDT Office Visit Family Practice [address] [place] [address], [place] 293 [place] [phone] Kerline Sotelo DO 293 [facility], [place] [address] 10/27/2023 9:00 AM EDT Office Visit Podiatry [facility] 132 [facility] [place] [address] [place] Arciniega, MER[place] 132 [facility] [place] [address] Scheduled Procedures Name Priority Associated Diagnoses Date/Ti [...] this encounter Medical Devices Implanted Type Area Army Helicopter Pilot Device Identifier Shelf Expiration Date Model / Serial / Lot Graft Stent Viab [id number] - [id number] Implanted:Qty : 1 on 05/01/2014 at OR [facility] [place] Left: SFA [employer] 03/09/2017 [id number] / / [id number] Stent Complete Sc 6x60 - [id number] Implanted:Qty : 1 on 07/23/2016 by Erwin Olsen MD at OR [facility] [place] Left: Popliteal Artery [employer] : VASCULAR 02/25/2018 [id number] / / [id number] Graft Stent Viab 7tpl4om - [id number] - [id number] Implanted:Qty : 1 on 01/12/2017 by Erwin Olsen MD at OR [facility] [place] Right: SFA [employer] 10/01/2019 [id number] 02A / [id number] / Stent Peripheral 7 Diam 150x20 - [id number] Implanted:Qty : 1 on 09/01/2019 by Erwin Olsen MD at OR [facility] [place] Left: SFA [employer] : VASCULAR [id number] 01/12/2022 [id number] -020-150 / / [id number] Device Vasc Cls Cadn Mynx6/7fr - [id number] Implanted:Qty : 1 on 02/21/2022 by Erwin Olsen MD at OR [facility] [place] CARDIOVASCULAR DYNAMICS [id number] 01/07/2023 [id number] / / [id number] documented as of this encounter Visit Diagnoses [...] the patient have Health Care Power of Office Services Specialist? No Care Teams Hanger Relationship Specialty Start Date End Date Kerline Sotelo DO 293 [facility] [place] [address] PCP - General Family Medicine 03/29/23 documented as of this encounter
--- OUTSIDE RECORDS SUMMARY | 2023-10-21 00:21 | External Medical Summary ---
Author Name Unknown Address Unknown Organization K01:[facility] [address] [place] [address] Laboratory Report Ordering Provider Test Date Status AMANDA DIAMOND 09/02/2023 14:45:28 Final Observation Date Value Abnormality Reference (Units ) Status Uric Acid 09/02/2023 14:45:28 5.4 3.4-7.0 (m g/dL) Final Performing Location [facility] - [address] [place] [address]
--- OUTSIDE RECORDS SUMMARY | 2023-10-21 00:21 | External Medical Summary | Summary of Care ---
Author Name Unknown Organization [facility] Address [address] [place] [address] Phone [phone] Care Team Providers Care Tire Balancer Name Role Phone MarleneKerline chinchilla Ludy CASTELLANO Primary Care Provider + [phone] Reason for Visit * Reason Onset Date Comments Home Monitoring Alarm 08/31/2023 Encounter Details Date Type Department Care Team (Late st Contact Info) Description 08/31/2023 Home Monitoring Care Coordination [address] [place] [address] Brie Coelho LPN HTN, goal below 140/90* Allergies No known active allergiesdocumented as of this encounter (statuses as of 09/01/2023) Medications Medication Sig Dispensed Refills Start Date End Date Status ASPIRIN LOW DOSE 81 MG PO TABSIndications:Othe r specified prophylactic or treatment measure 1 TABLET DAILY 30 Tab 11 05/19/2013 Active Blood Glucose Monitoring Suppl (ONETOUCH VERIO) w/Device KITIndications:[place] corwin glucose Use up to 4 times [...] 75 MG Oral Tablet (pLAVix)Indications: 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) [...] as of this encounter (statuses as of 09/01/2023) Active Problems Problem Noted Date Diagnosed Date [...] Secondary hyperparathyroidism of renal origin Atherosclerosis of [place] ar teries of the extremities with ulceration [...] bilateral 05/28/2020 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[place] coronary artery without angina pectoris 05/28/2020 Diabetes [...] as of this encounter (statuses as of 09/01/2023) Resolved Problems Problem Noted Date Diagnosed Date [...] as of this encounter (statuses as of 09/01/2023) Immunizations Name Administration Dates Next Due COVID-19 Whole Virus, Rollins Vac, 2-Dose Series ([employer]) 06/10/2021,11/08/2020,10/08/2020 Pneumococcal Polysaccharide PPV23 (Pneumovax) 05/19/2013 Seasonal [...] this encounter Progress Notes * [place] Veliz, [facility] - 09/01/2023 5:00 PM EST Images from the original note were not included. [facility] - Hypertension Management This patient was contacted as part of the [facility] Nephrology HTN remote monitoring pilot supervisor. Blood Pressure Goal: 140/90 mmHg Type of Alert: Yellow Current Hypertension Medications: Spironolactone 25 mg 1/2 tab daily amlodpine 10 mg daily Furosemide 40 mg BID Terazosin 2 mg 2 cap daily Lisinopril 40 mg daily Carvedilol 25 mg 1.5 tabs BID Hydralazine 50 mg TID Experiencing symptoms related to elevated BP: No BP Readings from Last 3 Encounters: 08/19/23 136/58 08/19/23 130/62 08/13/23 120/56 Pulse Readings from Last 3 Encounters: 08/19/23 80 08/19/23 66 08/13/23 72 Recent Labs Units 08/13/23 1041 07/01/23 1303 05/04/23 1440 SODIUM - [facility] mmol/L 136 136 134* POTASSIUM - [facility] mmol/L 4.5 5.1 4.8 CHLORIDE - [facility] mmol/L 101 101 102 CO2 - [facility] mmol/L 20* 23 20* CREATININE - [facility] mg/dL 4.2* 4.1* 3.5* BUN - [facility] mg/dL 57* 57* 47* ASSESSMENT & PLAN: Blood pressure was elevated while patient was sick. Now feeling better and last two BPs have been well controlled. MEDICATION CHANGES: none Hypertension Medications: Spironolactone 25 mg 1/2 tab daily amlodpine 10 mg daily Furosemide 40 mg BID Terazosin 2 mg 2 cap daily Lisinopril 40 mg daily Carvedilol 25 mg 1.5 tabs BID Hydralazine 50 mg TID HEALTH MAINTENANCE INTERVENTIONS: Labs: Ordered & Scheduled: Up to date [place] Novak [facility] Clinical Pharmacist - Bacteriologist [facility] 09/01/2023, 5:00 PM * Brie Coelho LPN - 08/31/2023 11:50 AM EST Miguel Heller [phone] Miguel Heller is currently participating in the [facility] Hypertension [...] 2:50 PM EST Office Visit Vascular Surgery, [facility] [address] [facility] [place] [address] Erwin Olsen MD [address] [facility] [place] [address] 09/24/2023 4:00 PM EST Office Visit Dermatology[address] [phone] Arabella Motta PA-C [address] [place] [address] [place] [address] 10/19/2023 8:30 AM EDT Office Visit Cardiology, [facility] 132 [facility] [place] [address] Chele Alvarenga PA-C [address] [place] [address] 10/26/2023 1:00 PM EDT Office Visit Family Practice [address] [place] [address] 293 [place] [address] Kerline Sotelo DO 293 [facility] [place] [address] 10/27/2023 9:00 AM EDT Office Visit Podiatry [facility] 132 [facility] [place] [address] [place] Arciniega DPM [facility] [place] [address] Scheduled Procedures Name Priority Associated Diagnoses Date/Ti [...] this encounter Medical Devices Implanted Type Area Litharge Mill Operator Device Identifier Shelf Expiration Date Model / Serial / Lot Graft Stent Viab [id number] - [id number] Implanted:Qty : 1 on 05/01/2014 at OR [facility] [place] Left: SFA [employer] 03/09/2017 [id number] / / [id number] Stent Complete Ut 6x60 - [id number] Implanted:Qty : 1 on 07/23/2016 by Erwin Olsen MD at OR [facility] [place] Left: Popliteal Artery [employer] : VASCULAR 02/25/2018 [id number] / / [id number] Graft Stent Viab 5ebi5ek - [id number] - [id number] Implanted:Qty : 1 on 01/12/2017 by Erwin Olsen MD at OR [facility] [place] Right: SFA [employer] 10/01/2019 [id number] 02A / [id number] / Stent Peripheral 7 Diam 150x20 - [id number] Implanted:Qty : 1 on 09/01/2019 by Erwin Olsen MD at OR [facility] [place] Left: SFA [employer] : VASCULAR [id number] 01/12/2022 [id number] -020-150 / / [id number] Device Vasc Cls Cadn Mynx6/7fr - [id number] Implanted:Qty : 1 on 02/21/2022 by Erwin Olsen MD at OR [facility] [place] CARDIOVASCULAR DYNAMICS [id number] 01/07/2023 [id number] / / [id number] documented as of this encounter Visit Diagnoses [...] the patient have Health Care Power of Ground Crew Supervisor? No Care Teams Tire Balancer Relationship Specialty Start Date End Date Kerline Sotelo DO 293 [facility] [place] [address] PCP - General Family Medicine 03/29/23 documented as of this encounter
--- OUTSIDE RECORDS SUMMARY | 2023-10-21 00:21 | External Medical Summary ---
Author Name Unknown Address Unknown Organization K0G:[facility] - [address] [place] [address] Laboratory Report Ordering Provider Test Date Status AMANDA DIAMOND 09/02/2023 14:45:28 Final Observation Date Value Abnormality Reference (Units ) Status Hemoglobin 09/02/2023 14:45:28 10.8 Below low normal 14 .0-16.8 (g/dL) Final Performing Location [facility] [address] 0 - [address] [place] [address]
--- OUTSIDE RECORDS SUMMARY | 2023-10-21 00:21 | External Medical Summary | Summary of Care ---
Author Name Unknown Organization [facility] Address [address] [place] [address] Phone [phone] Care Team Providers Care Ruby Engineer Name Role Phone Kerline Sotelo Primary Care Provider + [phone] Reason for Visit * Reason Comments Outpatient Testing Encounter Details Date Type Department Care Team (Late st Contact Info) Description 09/02/2023 3:20 PM EST Laboratory Laboratory, [facility] [address] [place] [id number] [facility] [address] [place] [address] Chronic kidney disease, stage 4 (severe) ([facility]) Allergies No known active allergiesdocumented as of this encounter (statuses as of 09/02/2023) Medications Medication Sig Dispensed Refills Start Date End Date Status ASPIRIN LOW DOSE 81 MG PO TABSIndications:Othe r specified prophylactic or treatment measure 1 TABLET DAILY 30 Tab 11 05/19/2013 Active Blood Glucose Monitoring Suppl (ONETOUCH VERIO) w/Device KITIndications:[place] glucose Use up to 4 times [...] 75 MG Oral Tablet (pLAVix)Indications: 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) [...] Secondary hyperparathyroidism of renal origin Atherosclerosis of [place] ar teries of the extremities with ulceration [...] bilateral 05/28/2020 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[place] coronary artery without angina pectoris 05/28/2020 Diabetes [...] COVID-19 Whole Virus, [place] Vac, 2-Dose Series (Qumas) 06/10/2021,11/08/2020,10/08/2020 Pneumococcal Polysaccharide PPV23 (Pneumovax) 05/19/2013 Seasonal [...] Care Team (Late st Contact Info) Description 09/24/2023 4:00 PM EST Office Visit Dermatology[address] [address] Arabella Motta PA-C [address] [place] [address] [place] [address] 10/19/2023 8:30 AM EDT Office Visit Cardiology, [facility] [address] [facility] [place] [address] Chele Alvarenga PAHeraclioC 132 [facility] [place] [address] 10/26/2023 1:00 PM EDT Office Visit Family Practice [address] [place] [address] [address] [place] [address] Kerline Sotelo DO [address] [facility] [place] [address] 10/27/2023 9:00 AM EDT Office Visit Podiatry [facility] [address] [facility] [place] [address] Angeles Arciniega DPM 132 [facility] [place] [address] 03/02/2024 8:00 AM EDT Imaging Vascular Lab, [address] [facility] [place] [address] 03/02/2024 9:00 AM EDT Imaging Vascular Lab, [address] [facility] [place] [address] 03/09/2024 8:30 AM EDT Office Visit Vascular Surgery, [facility] [address] [facility] [place] [address] Erwin Olsen MD [address] [place] [address] Pending Results Name Type Priority Associated Diagnoses Date /Time ALBUMIN Lab Routine Chronic kidney disease, stage 4 (severe) (HCC) 09/02/2023 2:45 PM EST BASIC METABOLIC PANEL Lab Routine Chronic kidney disease, stage 4 (severe) (HCC) 09/02/2023 2:45 PM EST PHOSPHORUS Lab Routine Chronic kidney disease, stage 4 (severe) (HCC) 09/02/2023 2:45 PM EST PTH Lab Routine Chronic kidney disease, stage 4 (severe) (HCC) 09/02/2023 2:45 PM EST URIC ACID Lab Routine Chronic kidney disease, stage 4 (severe) (HCC) 09/02/2023 2:45 PM EST Scheduled Procedures Name Priority Associated [...] this encounter Medical Devices Implanted Type Area Syrup Mixer Device Identifier Shelf Expiration Date Model / Serial / Lot Graft Stent Viab [id number] - [id number] Implanted:Qty : 1 on 05/01/2014 at OR [facility] Left: SFA [employer] 03/09/2017 [id number] / / [id number] Stent Complete Or 6x60 - [id number] Implanted:Qty : 1 on 07/23/2016 by Erwin Olsen MD at OR [facility] Left: Popliteal Artery [employer] : VASCULAR 02/25/2018 [id number] / / [id number] Graft Stent Viab 3wun4us - [id number] - [id number] Implanted:Qty : 1 on 01/12/2017 by Erwin Olsen MD at OR [facility] Right: SFA [employer] 10/01/2019 [id number] / [id number] / Stent Peripheral 7 Diam 150x20 - [id number] Implanted:Qty : 1 on 09/01/2019 by Erwin Olsen MD at OR [facility] Left: SFA [employer] : VASCULAR [id number] 01/12/2022 [id number] / / [id number] Device Vasc Cls Cadn Mynx6/7fr - [id number] Implanted:Qty : 1 on 02/21/2022 by Erwin Olsen MD at OR [facility] [employer] [id number] 01/07/2023 [id number] / / [id number] documented as of this encounter Procedures Procedure Name Priority Date/Time Associated Diagnosis Comments HGB Routine 09/02/2023 2:45 PM EST Chronic kidney disease, stage 4 (severe) (HCC) documented in this encounter Results * (ABNORMAL) HGB (09/02/2023 2:45 PM EST) HGB 10.8(L) 14.0 - 16.8 g/dL 09/02/2023 2:54 PM EST [facility] Blood Venous blood specimen / Unknown Venipuncture / Unknown 09/02/2023 2:45 PM EST 09/02/2023 2:45 PM EST Kindra Blount MD LAB BLOOD ORDERAB LES Performing Organization Address City/State/[facility] Co de Phone Number [facility] [place] [facility] [address] [place], [place] [address] [place] [address] documented in this encounter Visit Diagnoses Diagnosis Chronic kidney [...] the patient have Health Care Power of Proof Operator? No Care Teams Ruby Engineer Relationship Specialty Start Date End Date Kerline Sotelo DO [address] [place] [address] PCP - General Family Medicine 03/29/23 documented as of this encounter
--- OUTSIDE RECORDS SUMMARY | 2023-10-21 00:21 | External Medical Summary ---
Author Name Unknown Address Unknown Organization [id number][facility] [address] [place] [address] Laboratory Report Ordering Provider Test Date Status AMANDA DIAMOND 09/02/2023 14:45:28 Final Observation Date Value Abnormality Reference (Units ) Status Albumin 09/02/2023 14:45:28 4.2 3.8-5.0 (g /dL) Final Performing Location [facility] 0 - [address] [place] [address]
--- OUTSIDE RECORDS SUMMARY | 2023-10-21 00:21 | External Medical Summary ---
Author Name Unknown Address Unknown Organization [id number]:[facility] - [facility] [place] [address] Laboratory Report Ordering Provider Test Date Status AMANDA DIAMOND 09/02/2023 14:45:28 Final Observation Date Value Abnormality Reference (Units ) Status Parathyrin.intact [Mass/volume] in Serum or Plasma 09/02/2023 14:45:28 363 Above high normal 15-65 (pg/mL) Final Performing Location [facility] - [facility] [place] [address]
--- OUTSIDE RECORDS SUMMARY | 2023-10-21 00:22 | External Medical Summary | Summary of Care ---
Author Name Unknown Organization [facility] Address [address] [place] [address] Phone [phone] Care Team Providers Care Mold Dumper Name Role Phone Kerline Sotelo DO Primary Care Provider + [phone] Reason for Visit * Reason Comments Acute Encounter Details Date Type Department Care Team ([facility] st Contact Info) Description 08/19/2023 8:00 AM EST Office Visit Family Practice [address], [place] [address] [place] [address] Kerline Sotelo DO [address] [place] [address] ARRIAGA (dyspnea on exertion)*; Acute non-recurrent frontal sinusitis; Renal osteodystrophy; Multiple thyroid nodules; Coronary artery disease involving [place] heart, unspecified vessel or lesion type, unspecified whether angina present; Dyslipidemia, goal LDL below 70; Extrinsic asthma without complication, unspecified asthma severity, unspecified whether persistent Allergies No known active allergiesdocumented as of this encounter (statuses as of 08/19/2023) Medications Medication Sig Dispensed Refills Start Date End Date Status ASPIRIN LOW DOSE 81 MG PO TABSIndications:Othe r specified prophylactic or treatment measure 1 TABLET DAILY 30 Tab 11 05/19/2013 Active Blood Glucose Monitoring Suppl (ONETOUCH VERIO) w/Device KITIndications:[place] glucose Use up to 4 times a day E11.9 1 Kit 0 12/22/2018 Active ONETOUCH DELICA LANCETS 33G [facility] test blood sugars up to four times [...] hemoglobin A1c goal of less than 7.0% ([facility]) USE WITH LANTUS ONCE DAILY OR DIRECTED 300 Each 3 11/20/2022 4 Active Lantus SoloStar 100 UNIT/ML Subcutaneous Solution Pen-injectorIndicati ons:Type 2 diabetes mellitus with hemoglobin A1c goal of less than 7.0% ([facility]) INJECT 18 UNITS UNDER THE SKIN ONCE [...] 75 MG Oral Tablet (pLAVix)Indications: Atherosclerosis of [place] arteries of the extremities with ulceration (HCC) [...] Pain, Mild. 20 Tablet 0 05/06/2023 Active Additional Information Patient not taking.Reported on 08/13/2023 [place] 8.4 GM Oral Packet (Patiromer Sorbitex [...] BEDTIME 90 Capsule 5 08/05/2023 4 Active Doxycycline Hyclate 100 MG Oral CapsuleIndications:A cute non-recurrent frontal sinusitis Take 1 Capsule by mouth in the morning and 1 Capsule before bedtime. Do all this for 10 days. Until gone.. 20 Capsule 0 08/19/2023 4 Active documented as of this encounter (statuses as of 08/19/2023) Active Problems Problem Noted Date Diagnosed Date [...] Secondary hyperparathyroidism of renal origin Atherosclerosis of [place] ar teries of the extremities with ulceration [...] bilateral 05/28/2020 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[place] coronary artery without angina pectoris 05/28/2020 Diabetes [...] as of this encounter (statuses as of 08/19/2023) Resolved Problems Problem Noted Date Diagnosed Date [...] as of this encounter (statuses as of 08/19/2023) Immunizations Name Administration Dates Next Due COVID-19 Whole Virus, [place] Vac, 2-Dose Series (Springpad) 06/10/2021,11/08/2020,10/08/2020 Pneumococcal Polysaccharide PPV23 (Pneumovax) 05/19/2013 Seasonal [...] Answer Date Recorded PHQ Adult Total Score 5 04/20/2023 Hunger Vital Sign Answer Date Recorded Within the past 12 months, y ou worried that your food would run out before you got the money to buy more. Never true 04/20/20 23 Within the past 12 months, t he food you bought just didn't last and you didn't have money to get more. Never true 04/20/2023 Sex and Gender Information Value Date Recorded Sex Assigned at Male 12/21/2018 3:54 PM EDT Gender Identity Male 12/21/2018 3:54 PM EDT Sexual Orientation Straight 12/21/2018 3: 54 PM EDT Job Start Date Occupation Industry Not on file Not on file Not on file documented as of this encounter Last Filed Vital Signs Vital Sign Reading Time Taken Comments Blood Pressure 130/62 08/19/2023 8:11 AM EST Pulse 66 08/19/2023 9:06 AM EST Temperature 36.3 C (97.3 F) 08/19/2023 8 :11 AM EST Respiratory Rate 14 08/19/2023 8:11 AM EST Oxygen Saturation 98% 08/19/2023 9:0 6 AM EST resting for 1 minute Inhaled Oxygen Concentration - - Weight 87.2 kg (192 lb 3.2 oz) 08/19/2023 8:11 AM EST Height 180.3 cm (5' 11") 08/19/2023 8:1 1 AM EST Body Mass Index 26.81 08/19/2023 8:11 AM EST documented in this [...] as of this encounter Progress Notes * Yen Paz LPN - 08/19/2023 8:55 AM EST ekg done as per dr's order. Pulse ox 98% resting Walking for approx 6 minutes - pulse ox 95-98% After resting for approx 1 minute - 98% Pulse rate ranged from 65-72. Patient tolerated walking well until closer to 6 minute chele - then reported arthritic hip pain. * Deepak Kerlinezully [place] DO - 08/19/2023 8:05 AM EST SUBJECTIVE: Chief Complaint Patient presents with Acute HPI: Miguel Heller is a 68 year old male who presents today with complaints of a headache. He states that it started around his right eye socket, into his forehead. He notes that he took a few tylenol with some relief. He states that it was gone by afternoon. He notes no jaw pain. The eye itself dose not hurt. No yarsanism pain, only frontal. He can see normally. He notes no discharge or crustin g of the eye. He seems to wake up with it. It is some better today. It has improved as the day has gone. He had some runny nose yesterday but not much. Some minimal congestion but it is much better overall. He notes that he never gets headaches. Pt notes that his ARRIAGA is continuing to progress. He had to quit his job because he is not able to work for more than 5 minutes without stopping to rest. He notes that this worsening preceded his recent illness. He states that unless he is sitting still, he will be more short of breath. PHM: Patient Active Problem List Diagnosis Code HTN, goal below 140/90 I10 Vitamin D deficiency E55.9 Thoracic aortic aneurysm (HCC) I71.20 Family history of ischemic heart disease Z82.49 Eczema L30.9 Nodule of flexor tendon sheath M67.90 PAD (peripheral artery disease) ([facility]) I73.9 Urinary retention R33.9 BPH with obstruction/lower urinary tract symptoms N40.1, N13.8 DDD (degenerative disc disease), cervical M50.30 Diabetes mellitus with nephropathy ([facility]) E11.21 Diabetes mellitus type 2 with peripheral artery disease ([facility]) E11.51 Aortic root dilatation ([facility]) I77.810 Diabetes mellitus, insulin dependent (IDDM), controlled [id number] Type 2 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, bilateral ([facility]) E11.3313 Atherosclerotic heart disease of [place] coronary artery without angina pectoris I25.10 Hypertensive kidney disease with stage 3b chronic kidney disease ([facility]) I12.9, N18.32 Depression F32.A Chronic kidney disease, stage 4 (severe) ([facility]) N18.4 Secondary hyperparathyroidism of renal origin ([facility]) N25.81 Atherosclerosis of [place] arteries of the extremities with ulceration ([facility]) I70.25 Multinodular goiter E04.2 Major depressive disorder with single episode F32.9 Type 2 diabetes mellitus with diabetic neuropathy, with long-term current use of insulin ([facility]) E11.40, Z79.4 Diabetes mellitus ([facility]) E11.9 Dyslipidemia, goal LDL below 70 E78.5 Renal osteodystrophy N25.0 Multiple thyroid nodules E04.2 History of amputation of hallux ([facility]) Z89.419 Cardiac asthma ([facility]) I50.1 Chronic diastolic heart failure ([facility]) I50.32 Type 2 diabetes mellitus with other specified complication ([facility]) E11.69 Diabetic ulcer of toe of left foot associated with type 2 diabetes mellitus ([facility]) E11.621, L97.529 Uncomplicated asthma J45.909 Current Outpatient Medications Medication Sig Dispense Refill [...] THE SKIN ONCE DAILY 30 mL 3 Terazosin HCl 2 MG [...] 90 Capsule 5 Blood Glucose Monitoring Suppl ([employer] VERIO) w/Device KIT Use up to 4 times a day E11.9 1 Kit 0 AnapsisUCH DELICA LANCETS 33G [facility] test blood sugars up to four times daily. ICD- 10: E11.9 100 Each 11 Spacer/Aero-Holding Chambers Device Use with inhaler. 1 Each 0 Insulin Pen Needle 31G X 6 MM USE WITH LANTUS ONCE DAILY OR DIRECTED 300 Each 3 Glucose Blood In Vitro Strip USE TO TEST BLOOD SUGAR FOUR TIMES A DAY 400 Strip 3 FreeStyle Juju 2 Sensor Use as directed. Every 14 days (Patient not taking: Reported on 07/07/2023) 2 Each 0 HYDROcodone-Acetaminophen 5-325 MG Oral Tablet Take 1 Tablet by mouth every 4 hours as needed for Pain, Mild. (Patient not taking: Reported on 08/13/2023) 20 Tablet 0 No current facility-administered medications for this [...] performed by Angeles Arciniega DPM at OR [facility] AORTOGRAM ABDOMINAL-TECH ONLY 05/01/2014 IMAGING SUPERVISION & INTERPRETATION ABDOMINAL AO performed by Erwin Olsen MD at [place] [facility] AORTOGRAM ABDOMINAL-TECH ONLY 09/01/2019 IMAGING SUPERVISION & INTERPRETATION ABDOMINAL AO performed by Erwin Olsen MD at OR [facility] AORTOGRAM ABDOMINAL-TECH ONLY N/A 12/16/2021 IMAGING SUPERVISION & INTERPRETATION ABDOMINAL AO performed by Erwin Olsen MD at OR [facility] AORTOGRAM ABDOMINAL-TECH ONLY 02/21/2022 IMAGING SUPERVISION & INTERPRETATION ABDOMINAL AO performed by Erwin Olsen MD at OR [facility] AORTOGRAM ABDOMINAL-TECH ONLY 01/19/2023 IMAGING SUPERVISION & INTERPRETATION ABDOMINAL AO performed by Erwin Olsen MD at OR [facility] COLONOSCOPY, DIAGNOSTIC (RECTUM) 12/13/2013 benign polyp, repeat 5 yrs/COLONOSCOPY FLEXIBLE PROXIMAL DIAGNOSTIC performed by Anoop Abernathy MD at ENDOSCOPY [facility] COLONOSCOPY, DIAGNOSTIC (RECTUM) 03/27/2016 hyperplastic polyps, diverticulosis, repeat 5 yrs/COLONOSCOPY FLEXIBLE PROXIMAL DIAGNOSTIC performed by Sanford Wood MD at ENDOSCOPY [facility] CORONARY ANGIOGRAPHY W/LEFT HEART CATH 09/07/2014 CORONARY ANGIOGRAPHY W/LEFT HEART CATH performed by Viki Bhakta MD at CARDIAC LABS [facility] EGD, FLEXIBLE, DIAGNOSTIC 03/27/2016 normal bx/ESOPHAGOGASTRODUODENOSCOPY (EGD), FLEXIBLE, TRANSORAL, DIAGNOSTIC performed by Sanford Wood MD at ENDOSCOPY [facility] FEM/POP ARTERY REVASC W/ STENT+ANGIOPLASTY 05/01/2014 FEM/POP ARTERY REVASC W/ STENT+ANGIOPLASTY performed by Erwin Olsen MD at OR [facility] FEM/POP ARTERY REVASC W/ STENT+ANGIOPLASTY Left 07/23/2016 FEM/POP ARTERY REVASC W/ STENT+ANGIOPLASTY performed by Erwin Olsen MD at OR [facility] FEM/POP ARTERY REVASC W/ STENT+ANGIOPLASTY Right 01/12/2017 FEM/POP ARTERY REVASC W/ STENT+ANGIOPLASTY performed by Erwin Olsen MD at OR [facility] FEM/POP ARTERY REVASC W/ STENT+ANGIOPLASTY Left 09/01/2019 FEM/POP ARTERY REVASC W/ STENT+ANGIOPLASTY performed by Erwin Olsen MD at OR [facility] FEM/POP ARTERY REVASC W/ANGIOPLASTY Right 09/12/2015 Drug-coated balloon angioplasty of the right superficial femoral artery. Dr. Olsen. [facility] OR. FEM/POP ARTERY REVASC W/ANGIOPLASTY Left 12/16/2021 FEM/POP ARTERY REVASC W/ANGIOPLASTY performed by Erwin Olsen MD at OR [facility] FEM/POP ARTERY REVASC W/ANGIOPLASTY Right 02/21/2022 FEM/POP ARTERY REVASC W/ANGIOPLASTY performed by Erwin Olsen MD at OR [facility] FEM/POP ARTERY REVASC W/ANGIOPLASTY Right 01/19/2023 FEM/POP ARTERY REVASC W/ANGIOPLASTY performed by Erwin Olsen MD at OR [facility] INJECTION OF EYE DRUG Left 01/18/2016 # [...] performed by Erwin Olsen MD at OR [facility] IR ARTERIOGRAM EXTREMITY BILATERAL N/A 12/16/2021 ANGIOGRAPHY EXTREMITY BILATERAL performed by Erwin Olsen MD at OR [facility] IR ARTERIOGRAM EXTREMITY BILATERAL Right 01/19/2023 ANGIOGRAPHY EXTREMITY BILATERAL performed by Erwin Olsen MD at OR [facility] IR ARTERIOGRAM EXTREMITY UNILATERAL 05/01/2014 IMAGING SUPERVISION & INTERPRETATION EXTREMITY UNILATERAL performed by Erwin Olsen MD at [facility] IR ARTERIOGRAM EXTREMITY UNILATERAL Left 07/23/2016 IMAGING SUPERVISION & INTERPRETATION EXTREMITY UNILATERAL performed by Erwin Olsen MD at [facility] IR ARTERIOGRAM EXTREMITY UNILATERAL Right 01/12/2017 IMAGING SUPERVISION & INTERPRETATION EXTREMITY UNILATERAL performed by Erwin Olsen MD at [facility] IR ARTERIOGRAM EXTREMITY UNILATERAL Left 09/01/2019 IMAGING SUPERVISION & INTERPRETATION EXTREMITY UNILATERAL performed by Erwin Olsen MD at [facility] IR ARTERIOGRAM EXTREMITY UNILATERAL Right 02/21/2022 IMAGING SUPERVISION & INTERPRETATION EXTREMITY UNILATERAL performed by Erwin Olsen MD at [facility] MISCELLANEOUS ORDER ([facility] ONLY) left knee ACL repair MISCELLANEOUS ORDER ([facility] ONLY) Left 01/18/2016 Eylea OS Consent signed, MISCELLANEOUS ORDER ([facility] ONLY) Right 02/20/2016 Eylea OD Consent signed. Dr Pedro ANDERSON ORDER ([facility] ONLY) Bilateral 04/09/2017 EYLEA CONSENT OU SIGNED; DR VASQUEZ MISDACIA ORDER ([facility] ONLY) Bilateral 04/06/2018 Eylea OU Consent signed, OTHER ACT 112 signed, 04/26/2021 OTHER EYLEA OU CONSENT SIGNED, Dr. Panchal/Faye (Exp 08-12-22) OTHER (INFORMATION) Bilateral AVASTIN OU CONSENT SIGNED, Dr. Vasquez/Faye (Exp 04-26-2022) OTHER (INFORMATION) Bilateral EYLEA OU CONSENT DR. ADEN EXP. 09/30/22 OTHER (INFORMATION) WINSTON RAJENDRA CONSENT SIGNED Dr. Vasquez/Faye (exp 11-25-23) PARTIAL AMPUTATION OF TOE Left 11/29/2020 AMPUTATION TOE INTERPHALANGEAL JOINT performed by Angeles Arciniega DPM at OR [facility] REPAIR RUPTURED ROTATOR CUFF, ACUTE right Review of patient's allergies indicates: No Known Allergies Family History Problem Relation Age of Onset Heart disease Mother in her late 60s Diabetes Father Heart Disorder Father Fatal PR in his mid 60s Hypertension Father No Known Problems Sister No Known Problems Sister No Known Problems Brother No Known Problems Brother Other (CKD/ESRD) None Glaucoma None Eye Problems None Denies family hx of retinal problems Cancer None Stroke None Other (Other) None Denies FmHx of AAA Family Status Relation Status Mo Fa Sis Alive Sis Alive Bro Alive Bro Alive NONE (Not Specified) NONE (Not Specified) NONE (Not Specified) NONE (Not Specified) NONE (Not Specified) Social History Tobacco Use Smoking status: Never Passive exposure: Past Smokeless tobacco: Never Substance Use Topics Alcohol use: No Comment: in the past, but not currently Vaping/E-Cigarette Use Vaping/E-Cigarette Use Never User Vaping/E-Cigarette Substances Vaping/E-Cigarette Devices REVIEW OF SYSTEMS: Review of Systems Constitutional: Negative for chills, fatigue, fever and unexpected weight change. HENT: Positive for congestion. Respiratory: Negative for cough, chest tightness, shortness of breath and wheezing. Cardiovascular: Negative for chest pain, palpitations and leg swelling. Gastrointestinal: Negative for abdominal pain, constipation, diarrhea, nausea and vomiting. Musculoskeletal: Negative for arthralgias, gait problem and joint swelling. Skin: Negative for color change, pallor and rash. Neurological: Positive for headaches. OBJECTIVE: BP 130/62 (BP Site: Left Arm, BP Position: Sitting, BP Cuff Size: Regular) | Pulse 68 | Temp 36.3 C (97.3 F) (Tympanic) | Resp 14 | Ht 1.803 m (5' 11") | Wt 87.2 kg (192 lb 3.2 oz) | SpO2 98% | BMI 26.81 kg/m | BSA 2.09 m PHYSICAL EXAM: Physical Exam Constitutional: General: He is not in acute distress. Appearance: He is well-developed. HENT: Head: Comments: Tenderness along right frontal sinus Right Ear: Tympanic membrane, ear canal and external ear normal. Left Ear: Tympanic membrane, ear canal and external ear normal. Nose: Congestion and rhinorrhea present. Mouth/Throat: Pharynx: No oropharyngeal exudate or posterior oropharyngeal erythema. Cardiovascular: Rate and Rhythm: Normal rate and regular rhythm. Heart sounds: Normal heart sounds. No murmur heard. No friction rub. No gallop. Pulmonary: Effort: Pulmonary effort is normal. No respiratory distress. Breath sounds: Normal breath sounds. No wheezing or rales. Abdominal: General: Bowel sounds are normal. There is no distension. Palpations: Abdomen is soft. Tenderness: There is no abdominal tenderness. There is no guarding. Musculoskeletal: General: No tenderness or deformity. Normal range of motion. Lymphadenopathy: Cervical: No cervical adenopathy. Skin: General: Skin is warm and dry. Coloration: Skin is not pale. Findings: No erythema or rash. Neurological: Mental Status: He is alert and oriented to person, place, and time. ASSESSMENT/PLAN: (R06.09) ARRIAGA (dyspnea on exertion) (primary encounter diagnosis) Plan: EKG, PULSE OX W/ REST/EXERCISE, MULTIPLE (OP) EKG with no new issues. Pulse ox ok. Likely secondary to obstructive CAD. Has not been able to be catheterized secondary to renal disease. He feels that his symptoms are worsening. He had to quit hisjob secondary to this. Message sent to cardiology and nephrology for their thoughts. (J01.10) Acute non-recurrent frontal sinusitis Plan: Doxycycline Hyclate 100 MG Oral Capsule Pt will start doxycycline. He will monitor for any new or worsening symptoms. No evidence of temporal arteritis. No eye issues. Discussed signs or symptoms that should cause concern and advised to call. (N25.0) Renal osteodystrophy Plan: Pt following with nephrology. No new issues. (E04.2) Multiple thyroid nodules Plan: Pt followed with serial US. Has been stable. No changes for now. (I25.10) Coronary artery disease involving [place] heart, unspecified vessel or lesion type, unspecified whether angina present Plan: As above. Following with cardiology. (E78.5) Dyslipidemia, goal LDL below 70 Plan: pt will remain on statin. No changes for now. (J45.909) Extrinsic asthma without complication, unspecified asthma severity, unspecified whether persistent Plan: No current issues. Does not seem to be a contributor to current symptoms. Follow-up: as scheduled Total time today including reviewing chart before the visit, pertinent labs, imaging reports, face to face time, and documentation time was 48 minutes. Kerline Sotelo DO documented in this encounter Nursing Notes * Yen Paz LPN - 08/19/2023 8:07 AM EST Patient here for acute visit. Reports pain in R eye, forehead for past week. States he recently hadpink eye in R eye. Reports yesterday he had a severe migraine. documented in this encounter Plan of Treatment Upcoming Encounters Date Type Department Care Team (Late st Contact Info) Description 08/26/2023 7:30 AM EST Imaging Vascular Lab, [address] [place] [address] 08/26/2023 8:30 AM EST Imaging Vascular Lab, [address] [place] [address] 09/02/2023 2:50 PM EST Office Visit Vascular Surgery, [address] [place] [address] Erwin Olsen MD [address] [place] [address] 09/24/2023 4:00 PM EST Office Visit Dermatology[address] [address] Arabella Motta PA-C [address] [place] [address] [place] [address] 10/19/2023 8:30 AM EDT Office Visit Cardiology, [facility] [address] [facility] [place] [address] Chele Alvarenga PA-C [address] [place] [address] 10/26/2023 1:00 PM EDT Office Visit Family Practice [address], [place] [address] [place] [address] Kerline Sotelo, DO [address] [facility] [place] [address] 10/27/2023 9:00 AM EDT Office [facility] [place] [address] Angeles Arciniega, DPM [facility] [address] Scheduled Orders Name Type Priority Associated Diagnoses Orde r Schedule EKG EKG Routine ARRIAGA (dyspnea on exertion) Expected: 08/19/2023 (Approximate), Expires: 09/19/2024 PULSE OX W/ REST/EXERCISE, MULTIPLE (OP) Procedures Routine ARRIAGA (dyspnea on exertion) Ordered: 08/19/2023 Scheduled Procedures Name Priority Associated Diagnoses Date/Ti [...] COVID-19 Vaccine (3 - WHO-authorized risk series) 08/20/2023 06/10/2021, 11/08/2020, 10/08/2020 Postponed from 07/08/2021 (Patient Declined After Education) HbA1c 10/08/2023 04/09/2023, 02/07, 09/01/2022, Additional history [...] 08/19/2024 08/19/2023 Influenza Vaccine (FLU shot) Completed 05/06/2023, 04/10/2022, 05/13/2021, Additional history exists GARDASIL-HPV IMMUNIZATION SERIES Aged Out No longer eligible based on patient's age to complete this topic MENINGOCOCCAL (MENACTRA/MENVEO) Aged Out No longer eligible based on patient's age to complete this topic documented as of this encounter Medical Devices Implanted Type Area Pricing Lead Device Identifier Shelf Expiration Date Model / Serial / Lot Graft Stent Viab [id number] - [id number] Implanted:Qty : 1 on 05/01/2014 at OR [facility] Left: SFA [employer] 03/09/2017 [id number] / / [id number] Stent Complete Ak 6x60 - [id number] Implanted:Qty : 1 on 07/23/2016 by Erwin Olsen MD at [place] [facility] Left: Popliteal Artery [employer] : VASCULAR 02/25/2018 [id number] / [id number] Graft Stent Viab [id number] - [id number] - [id number] Implanted:Qty : 1 on 01/12/2017 by Erwin Olsen MD at [facility] Right: SFA [employer] 10/01/2019 [id number] / [id number] / Stent Peripheral 7 Diam 150x20 - [id number] Implanted:Qty : 1 on 09/01/2019 by Erwin Olsen MD at OR [facility] Left: SFA [employer] : VASCULAR [id number] 01/12/2022 [id number] / / [id number] Device [facility] Cls Cadn Mynx6/[id number] - [id number] Implanted:Qty : 1 on 02/21/2022 by Erwin Olsen MD at OR [facility] CARDIOVASCULAR [employer]YNAMICS [id number] 01/07/2023 [id number] / / [id number] documented as of this encounter Visit Diagnoses Diagnosis ARRIAGA (dyspnea on exertion)- Primary Other dyspnea and respiratory abnormality Acute non-recurrent frontal sinusitis Renal osteodystrophy Multiple thyroid nodules Nontoxic multinodular goiter Coronary artery disease involving [place] heart, unspecified vessel or lesion type, unspecified whether angina present Dyslipidemia, goal LDL below 70 Other and unspecified hyperlipidemia Extrinsic asthma without complication, unspecified asthma severity, unspecified whether persistent documented in this encounter Advance Directives Latest [...] the patient have Health Care Power of Animal Cytologist? No Care Teams Mold Dumper Relationship Specialty Start Date End Date Kerline Sotelo DO [facility] [place] [address] PCP - General Family Medicine 03/29/23 documented as of this encounter
--- OUTSIDE RECORDS SUMMARY | 2023-10-21 00:22 | External Medical Summary | Summary of Care ---
Author Name Unknown Organization [facility] Address [address] [place] [address] Phone [phone] Care Team Providers Care Expanded Function Dental Assistant Name Role Phone MarleneStormy chinchillazully [place] DO Primary Care Provider + [phone] Reason for Visit * Reason Comments Follow Up Acute Encounter Details Date Type Department Care Team ([facility] st Contact Info) Description 08/19/2023 2:00 PM EST Office Visit Cardiology, [facility] [address] [facility] [place] [address] Odilia Arce CRNP [address] [facility] [place] [address] ARRIAGA (dyspnea on exertion)*; ASCVD (arteriosclerotic cardiovascular disease); Ascending aorta dilatation (HCC); HTN, goal below 140/90; Chronic diastolic congestive heart failure (HCC); Renal dysfunction Allergies No known active allergiesdocumented as of this encounter (statuses as of 08/20/2023) Medications Medication Sig Dispensed Refills Start Date End Date Status ASPIRIN LOW DOSE 81 MG PO TABSIndications:Othe r specified prophylactic or treatment measure 1 TABLET DAILY 30 Tab 11 05/19/2013 Active Blood Glucose Monitoring Suppl (ONETOUCH VERIO) w/Device KITIndications:Milan corwin glucose Use up to 4 times [...] 75 MG Oral Tablet (pLAVix)Indications: 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 Until gone.. 20 Capsule 0 08/19/2023 Active documented as of this encounter (statuses as of 08/20/2023) Active Problems Problem Noted Date Diagnosed Date [...] Secondary hyperparathyroidism of renal origin Atherosclerosis of [place] ar teries of the extremities with ulceration [...] bilateral 05/28/2020 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[place] coronary artery without angina pectoris 05/28/2020 Diabetes [...] as of this encounter (statuses as of 08/20/2023) Resolved Problems Problem Noted Date Diagnosed Date [...] as of this encounter (statuses as of 08/20/2023) Immunizations Name Administration Dates Next Due COVID-19 Whole Virus, Rollins Vac, 2-Dose Series (Intcomex) 06/10/2021,11/08/2020,10/08/2020 Pneumococcal Polysaccharide PPV23 (Pneumovax) 05/19/2013 Seasonal [...] Sign Reading Time Taken Comments Blood Pressure 136/58 08/19/2023 2:05 PM EST Pulse 80 08/19/2023 2:05 PM EST Temperature - - Respiratory Rate 20 08/19/2023 2:05 PM EST Oxygen Saturation - - Inhaled Oxygen Concentration - - Weight 87.1 kg (192 lb) 08/19/2023 2:05 PM EST Height - - Body Mass Index 26.78 08/19/2023 8:11 AM EST documented in this [...] Progress Notes * Odilia Arce CRNP - 08/19/2023 2:00 PM EST 08/19/2023 Cardiology Follow Up Primary Social Service Technician: Chele Alvarenga PA-C Cardiac Problems: Nonobstructive CAD. Peripheral vascular disease. Followed by [facility] Vascular Surgery. Labile hypertension Thoracic aortic aneurysm Dyslipidemia Longstanding type II diabetes mellitus with stage III-IV chronic kidney disease Family history of ischemic heart disease. HPI: Miguel Heller is a 68 year old male presents for acute evaluation of dyspnea. Last seen in our office by Chele Alvarenga PA-C He was seen in the office by [...] cardiac cath for fear of needing dialysis. Reports compliance with all medications with no untoward effects. REVIEW OF SYSTEMS: [...] 30 Tab 11 Blood Glucose Monitoring Suppl (Intuitive User InterfacesUCH VERIO) w/Device KIT Use up to 4 times a day E11.9 1 Kit 0 Spacer/Aero-Holding Chambers Device Use with inhaler. 1 [...] needed for Pain, Mild. 20 Tablet 0 Pantoprazole Sodium 40 MG Oral Tablet Delayed Release (Protonix) TAKE ONE TABLET BY MOUTH EVERY EVENING 100 Tablet 3 Calcitriol 0.25 MCG Oral Capsule (Rocaltrol) Take 1 Capsule by mouth in the morning. 30 Capsule 5 Gabapentin 100 MG Oral Capsule (Neurontin) TAKE ONE CAPSULE BY MOUTH THREE TIMES A DAY -- IN THE MORNING, AT NOON AND BEFORE BEDTIME 90 Capsule 5 Doxycycline Hyclate 100 MG Oral Capsule Take 1 Capsule by mouth in the morning and 1 Capsule beforebedtime. Do all this for 10 days. Until gone.. 20 Capsule 0 ONETOUCH DELICA LANCETS 33G [facility] test blood sugars up to four times daily. ICD- 10: E11.9 100 Each 11 FreeStyle Juju 2 Sensor Use as directed. Every 14 days (Patient not taking: Reported on 07/07/2023) 2 Each 0 Veltassa 8.4 GM Oral Packet (Patiromer Sorbitex Calcium) Mix 1 packet (8.4g) in water and drink themorning. 30 Each 5 No current facility-administered medications for this [...] 60s Diabetes Father Heart Disorder Father Fatal [place] in his mid 60s Hypertension Father No Known Problems Sister No Known Problems Sister No Known Problems Brother No Known Problems Brother Other (CKD/ESRD) None Glaucoma None Eye Problems None Denies family hx of retinal problems Cancer None Stroke None Other (Other) None Denies FmHx of AAA Social History Socioeconomic History Marital status: Single Number of children: 2 Occupational History Employer: [employer] Tobacco Use Smoking status: Never Passive exposure: [...] Last Year: Never true OBJECTIVE/PHYSICAL EXAMINATION: BP 136/58 | Pulse 80 | Resp 20 | Wt 87.1 kg (192 lb) | BMI 26.78 kg/m | BSA 2.09 m General: No acute distress. A+Ox3. HEENT: [...] 07, 2014 diagnostic cardiac catheterization performed at [facility] demonstrated diffuse moderate irregularities with normal hemodynamic [...] rare (<1.0%). Isolated VEs were occasional (5.0%, 21847), VE Coupletswere rare (<1.0%, 189), and VE [...] ASSESSMENT/PLAN: 68 year old year old male 1. ARRIAGA (dyspnea on exertion) 2. ASCVD (arteriosclerotic cardiovascular disease) -last known cardiac cath around 2015 with non-obstructive CAD at that time. Patient has since had vascular work up/intervention and has had progressively worsening renal dysfunction. -Discussed patient's EKG and symptoms as well as Goals of care. -At this time, would recommend that we should pursue a cardiac catheterization for definitive evaluation. -Patient is aware that he is limited in the amount of dye he can receive as well as potential need for emergent dialysis -staff message has been sent to Dr. Blount for further discussion on coordinating a plan. Once established, We will plan to schedule patient at [facility] for cardiac catheterization. 3. Ascending aorta dilatation (HCC) - 4. HTN, goal below 140/90 -At target. Continue Spironolactone, terazosin, Lisinopril, amlodipine, Carvedilol, furosemide, hydralazine, and Imdur. 5. Chronic diastolic congestive heart failure (HCC) -euvolemic on physical exam Continue Coreg, Furosemide, and spironolactone as per current regimen 6. Renal dysfunction -Following closely with nephrology with eventual plan to proceed with PD. Discussed potential for emergent initing of dialysis following cardiac procedure. Verbalizes understand -will work to coordinate car with nephrology prior to scheduling. DISPOSITION: Follow up 2 months or if symptoms worsen/fail to improve. All questions were answered to the patients satisfaction. Patient advised to report to ED with any and all emergencies. The patient agrees to the above plan and will call with additional questions or concerns. [facility], [address] [address] I spent a total of 45 minutes on the date of service in preparation, delivery, and documentation ofthe care provided to Miguel Heller excluding any time spent in the performance of separately billed services. This chart was completed in part utilizing [employer] Speech Voice Recognition Software. Grammatical errors, random [...] documented in this encounter Nursing Notes * Alisha Oconnor LPN - 08/19/2023 2:04 PM EST Examination Room: 1 Name: Miguel Heller Date of : 1955 Reason for Visit: Acute per PCP Problems/Concerns: SOB/ARRIAGA - Interim Hosp(s): denies Chest Pain/SOB: denies MyChart Discussed: ALREADY ACTIVE Patient was instructed to not get up on the exam table until directed and assisted by their provider; patient is to remain seated in the chair/ wheelchair/ exam table for fall prevention and safety reasons. Patient is aware staff will assist stepping down off exam table with personnel. documented in this encounter Plan of Treatment Upcoming Encounters Date Type Department Care Team (Late st Contact Info) Description 08/26/2023 7:30 AM EST Imaging Vascular Lab, [facility] [address] [facility] [address] 08/26/2023 8:30 AM EST Imaging Vascular Lab, [address] 132 [facility] [place] [address] 09/02/2023 2:50 PM EST Office Visit Vascular Surgery, [facility] [address] [facility] [address] Erwin Olsen MD [address] [place] [address] 09/24/2023 4:00 PM EST Office Visit Dermatology, [address] [address] Arabella Motta PA-C [address] [place] [address] [place] [address] 10/19/2023 8:30 AM EDT Office Visit Cardiology, [facility] 132 [facility] [place] [address] Chele Alvarenga PA-C [address] [facility] [place] [address] 10/26/2023 1:00 PM EDT Office Visit Family Practice [address] [place] [address] [facility] [address] Kerline Sotelo, DO [address] [place] [address] 10/27/2023 9:00 AM EDT Office Visit Podiatry [facility] [address] [place] [address] Angeles Arciniega, MERLY [address] [place] [address] Scheduled Procedures Name Priority Associated Diagnoses Date/Ti [...] this encounter Medical Devices Implanted Type Area Steam Bone Press Tender Device Identifier Shelf Expiration Date Model / Serial / Lot Graft Stent Viab [id number] - [id number] Implanted:Qty : 1 on 05/01/2014 at OR [facility] Left: SFA [employer] 03/09/2017 [id number] / / [id number] Stent Complete Nd 6x60 - [id number] Implanted:Qty : 1 on 07/23/2016 by Erwin Olsen MD at OR [facility] Left: Popliteal Artery [employer] : VASCULAR 02/25/2018 [id number] / / [id number] Graft Stent Viab 6gcx9uk - [id number] - [id number] Implanted:Qty : 1 on 01/12/2017 by Erwin Olsen MD at OR [facility] Right: SFA [employer] 10/01/2019 [id number] / [id number] / Stent Peripheral 7 Diam 150x20 - [id number] Implanted:Qty : 1 on 09/01/2019 by Erwin Olsen MD at OR [facility] Left: SFA [employer] : VASCULAR [id number] 01/12/2022 [id number] / / [id number] Device [facility] Cls Cadn Mynx6/7fr - [id number] Implanted:Qty : 1 on 02/21/2022 by Erwin Olsen MD at OR [facility] CARDIOVASCULAR DYNAMICS [id number] 01/07/2023 [id number] / / [id number] documented as of this encounter Visit Diagnoses Diagnosis ARRIAGA (dyspnea on exertion)- Primary Other dyspnea and respiratory abnormality ASCVD (arteriosclerotic cardiovascular disease) Unspecified cardiovascular disease Ascending aorta dilatation (HCC) Thoracic aortic ectasia HTN, goal below 140/90 Unspecified essential hypertension Chronic diastolic congestive heart failure (HCC) Chronic diastolic heart failure Renal dysfunction Unspecified disorder of kidney and ureter documented in this encounter Advance Directives Latest [...] the patient have Health Care Power of Marketing Summer Intern? No Care Teams Expanded Function Dental Assistant Relationship Specialty Start Date End Date Kerline Sotelo DO [address] [place] [address] PCP - General Family Medicine 03/29/23 documented as of this encounter"
--- OUTSIDE RECORDS SUMMARY | 2023-10-21 00:22 | External Medical Summary | Summary of Care ---
Author Name Unknown Organization [facility] Address [address] [place] [address] Phone [phone] Care Team Providers Care Vest Busheler Name Role Phone Kerline Sotelo Primary Care Provider + [phone] Encounter Details Date Type Department Care Team (Late st Contact Info) Description 08/20/2023 Population Health External Data Unspecified Department Allergies No known active allergiesdocumented as of this encounter (statuses as of 08/24/2023) Medications Medication Sig Dispensed Refills Start Date End Date Status ASPIRIN LOW DOSE 81 MG PO TABSIndications:Othe r specified prophylactic or treatment measure 1 TABLET DAILY 30 Tab 11 05/19/2013 Active Blood Glucose Monitoring Suppl (ONETOUCH VERIO) w/Device KITIndications:Hudson corwin glucose Use up to 4 times [...] 75 MG Oral Tablet (pLAVix)Indications: 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) [...] as of this encounter (statuses as of 08/24/2023) Active Problems Problem Noted Date Diagnosed Date [...] Secondary hyperparathyroidism of renal origin Atherosclerosis of [place] ar teries of the extremities with ulceration [...] bilateral 05/28/2020 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[place] coronary artery without angina pectoris 05/28/2020 Diabetes [...] as of this encounter (statuses as of 08/24/2023) Resolved Problems Problem Noted Date Diagnosed Date [...] as of this encounter (statuses as of 08/24/2023) Immunizations Name Administration Dates Next Due COVID-19 Whole Virus, Rollins Vac, 2-Dose Series (GL 2ours) 06/10/2021,11/08/2020,10/08/2020 Pneumococcal Polysaccharide PPV23 (Pneumovax) 05/19/2013 Seasonal [...] 08/26/2023 7:30 AM EST Imaging Vascular Lab, [facility] 2nd [facility] 132 [facility] [place] [address] 08/26/2023 8:30 AM EST Imaging Vascular Lab, [address] 132 [facility] [place] [address] 09/02/2023 2:50 PM EST Office Visit Vascular Surgery, [facility] 132 [facility] [place] [address] Erwin Olsen MD [address] [place] [address] 09/24/2023 4:00 PM EST Office Visit Dermatology, [address] [address] Arabella Motta PA-C [address] [place] [address] [place] [address] 10/19/2023 8:30 AM EDT Office Visit Cardiology, [facility] 132 [facility] [place] [address] Chele Alvarenga PAHeraclioC 132 [facility] [place] [address] 10/26/2023 1:00 PM EDT Office Visit Family [address] 293 [facility] [address] Kerline Sotelo, [address] [place] [address] 10/27/2023 9:00 AM EDT Office Visit Podiatry [facility] [place] [address] [place] [address] [place] Arciniega, DPM [address] [place] [address] Scheduled Procedures Name Priority Associated Diagnoses Date/Ti [...] this encounter Medical Devices Implanted Type Area Patient Financial Advocate Device Identifier Shelf Expiration Date Model / Serial / Lot Graft Stent Viab [id number] - [id number] Implanted:Qty : 1 on 05/01/2014 at OR [facility] Left: SFA [employer] 03/09/2017 [id number] / / [id number] Stent Complete Sc 6x60 - [id number] Implanted:Qty : 1 on 07/23/2016 by Erwin Olsen MD at OR [facility] Left: Popliteal Artery [employer] : VASCULAR 02/25/2018 [id number] / / [id number] Graft Stent Viab 6wpb9wh - [id number] - [id number] Implanted:Qty : 1 on 01/12/2017 by Erwin Olsen MD at OR [facility] Right: SFA [employer] 10/01/2019 [id number] / [id number] / Stent Peripheral 7 Diam 150x20 - [id number] Implanted:Qty : 1 on 09/01/2019 by Erwin Olsen MD at OR [facility] Left: SFA [employer] : VASCULAR [id number] 01/12/2022 [id number] -020-150 / / [id number] Device [facility] Cls Cadn Mynx6/7fr - [id number] Implanted:Qty : 1 on 02/21/2022 by Erwin Olsen MD at OR [facility] CARDI[employer]ASCULAR [employer]YNAM[employer] [id number] 01/07/2023 [id number] / / [id number] documented as of this encounter Advance Directives [...] the patient have Health Care Power of Pulmonary Physician? No Care Teams Vest Busheler Relationship Specialty Start Date End Date Kerline Sotelo DO [address] [place] [address] PCP - General Family Medicine 03/29/23 documented as of this encounter
--- OUTSIDE RECORDS SUMMARY | 2023-10-21 00:22 | External Medical Summary ---
Author Name Unknown Address Unknown Organization K01:[facility] [place] [address] [facility] [place] [address] Laboratory Report Ordering Provider Test Date Status MO RAMONANTONIABOSTON 08/13/2023 10:41:51 Final Observation Date Value Abnormality Reference (Units ) Status WBC, Total 08/13/2023 10:41:51 10.06 4.00-10.80 (K/uL) Final RBC 08/13/2023 10:41:51 3.59 4.50-5.25 (M/uL) Final Hemoglobin 08/13/2023 10:41:51 10.8 Below low normal 14.0-16.8 (g/dL) Final HCT 08/13/2023 10:41:51 33.1 Below low normal 40.0-48.4 (%) Final MCV 08/13/2023 10:41:51 92.2 82.0-99.5 (fL) Final MCH 08/13/2023 10:41:51 30.1 27.0-34.0 (pg) Final MCHC 08/13/2023 10:41:51 32.6 32.0-36.0 (g/dL) Final RDW 08/13/2023 10:41:51 13.5 11.5-15.5 (%) Final Platelets 08/13/2023 10:41:51 216 140-400 (K/uL) Final MPV 08/13/2023 10:41:51 10.8 6.6-11.1 (fL) Final Nucleated erythrocytes/100 leukocytes [Ratio] in Blood by Automated count 08/13/2023 10:41:51 0 <=0 (/100 WBCs) Final Performing Location [facility] [address] [facility] [place] [address]
--- OUTSIDE RECORDS SUMMARY | 2023-10-21 00:22 | External Medical Summary | Summary of Care ---
Author Name Unknown Organization [facility] Address [address] [place] [address] Phone [phone] Care Team Providers Care Manager Research Development Name Role Phone Kerline Sotelo DO Primary Care Provider + [phone] Reason for Visit * Reason Onset Date Comments Remote Patient Monitoring Alert 08/12/2023 Encounter Details Date Type Department Care Team (Late st Contact Info) Description 08/12/2023 Home Monitoring Care Coordination [address] [place] [address] HepTeresita escobedo LPN HTN, goal below 140/90* Allergies No known active allergiesdocumented as of this encounter (statuses as of 08/18/2023) Medications Medication Sig Dispensed Refills Start Date End Date Status ASPIRIN LOW DOSE 81 MG PO TABSIndications:Othe r specified prophylactic or treatment measure 1 TABLET DAILY 30 Tab 11 05/19/2013 Active Blood Glucose Monitoring Suppl (ONETOUCH VERIO) w/Device KITIndications:Damariscotta corwin glucose Use up to 4 times [...] 75 MG Oral Tablet (pLAVix)Indications: 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 30 Each 5 05/10/2023 Active Additional Information Patient not taking.Reported on 07/07/2023 Pantoprazole Sodium 40 MG Oral Tablet Delayed [...] as of this encounter (statuses as of 08/18/2023) Active Problems Problem Noted Date Diagnosed Date Chronic diastolic heart failure 08/13/2023 Type 2 [...] Secondary hyperparathyroidism of renal origin Atherosclerosis of [place] ar teries of the extremities with ulceration [...] bilateral 05/28/2020 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[place] coronary artery without angina pectoris 05/28/2020 Diabetes [...] as of this encounter (statuses as of 08/18/2023) Resolved Problems Problem Noted Date Diagnosed Date [...] as of this encounter (statuses as of 08/18/2023) Immunizations Name Administration Dates Next Due COVID-19 Whole Virus, [place] Vac, 2-Dose Series (cFares) 06/10/2021,11/08/2020,10/08/2020 Pneumococcal Polysaccharide PPV23 (Pneumovax) 05/19/2013 Seasonal [...] of this encounter Progress Notes * Angeles Veliz [facility] - 08/18/2023 1:14 PM EST Patient here next day on 08/13 with PCP And blood pressure at goal. Patient notes that he was ill when last BP was taken and was vomiting. Had not taken BP medications regularly last week due to illness. Angeles Márquez, Pharm D, BCACP Clinical Pharmacist [address] - Medication [facility] 08/18/2023, 1:15 PM Ph. [phone] * Teresita Blanchard LPN - 08/12/2023 1:59 PM EST Miguel Aguiartaylor [phone] Miguel Recinos Pina is currently participating in the [facility] Hypertension Management Program and had a reading on 08/12/2023 of 148/74. Pt has alerted for an Average BP over 7 days > 140/90 . Parameters are currently set as follows: Average BP over 7 days > 140/90 Singular Systolic BP Reading < 90 or > 180 Singular Diastolic BP Reading <50 or > 120 Patient is not reporting new symptoms or concerns, although he has been sick with a respiratory illness for the past 7 or 8 days The patient does have all his blood pressure medications and is taking them as prescribed. Spoke with patient regarding infrequent readings- advised and educated patient on need for daily readings. Pt will try to capture more frequent BP readings. Please review the recent history of home [...] Care Team (Late st Contact Info) Description 08/19/2023 8:00 AM EST Office Visit Family Practice [address], [place] [address] [place] [address] Kerline Sotelo, DO [address] [place] [address] 08/26/2023 7:30 AM EST [facility], [address] [facility] [address] 08/26/2023 8:30 AM EST Imaging V[facility], [address] [facility] [address] 09/02/2023 2:50 PM EST Office Visit [facility], [facility] [address] [facility] [address] Erwin Olsen MD [address] [place] [address] 09/24/2023 4:00 PM EST Office Visit Dermatology, [address] [address] Arabella Motta PA-C [address] [place] [address] [place] [address] 10/19/2023 8:30 AM EDT Office Visit Cardiology, [facility] [address] [facility] [place] [address] Chele Alvarenga PA-C [address] [facility] [place] [address] 10/26/2023 1:00 PM EDT Office Visit Family Practice [address] [place] [address], [place] [address] [place] [id number] Kerline Sotelo DO [address] [facility] [place] [address] 10/27/2023 9:00 AM EDT Office Visit Podiatry [facility] [address] [facility] [place] [address] Angeles Arciniega, MERLY [address] [facility] [place] [address] Scheduled Procedures Name Priority Associated Diagnoses [...] 11/13/2022, 07/02/2022, Additional history exists Depression Screening 08/13/2024 08/13/2023 Influenza Vaccine (FLU shot) Completed , 04/10/2022, 05/13/2021, Additional history exists GARDASIL-HPV IMMUNIZATION SERIES Aged Out No longer eligible based on patient's age to complete this topic MENINGOCOCCAL (MENACTRA/MENVEO) Aged Out No longer eligible based on patient's age to complete this topic documented as of this encounter Medical Devices Implanted Type Area Lining Maker Device Identifier Shelf Expiration Date Model / Serial / Lot Graft Stent Viab [id number] - [id number] Implanted:Qty : 1 on 05/01/2014 at OR [facility] Left: SFA [employer] 03/09/2017 [id number] / / [id number] Stent Complete Pr 6x60 - [id number] Implanted:Qty : 1 on 07/23/2016 by Erwin Olsen MD at OR [facility] Left: Popliteal Artery [employer] : VASCULAR 02/25/2018 [id number] / / [id number] Graft Stent Viab [id number] - [id number] - [id number] Implanted:Qty : 1 on 01/12/2017 by Erwin Olsen MD at OR [facility] Right: SFA [employer] 10/01/2019 [id number] / [id number] / Stent Peripheral 7 Diam 150x20 - [id number] Implanted:Qty : 1 on 09/01/2019 by Erwin Olsen MD at OR [facility] Left: SFA [employer] : VASCULAR [id number] 01/12/2022 [id number] / / [id number] [facility] Cls Cadn Mynx6/7fr - [id number] Implanted:Qty : 1 on 02/21/2022 by Erwin Olsen MD at OR [facility] CARDIOVASCULAR DYNAMICS [id number] 01/07/2023 [id number] / / [id number] documented as of this encounter Visit Diagnoses [...] the patient have Health Care Power of Machine Setter Sheet Metal? No Care Teams Manager Research Development Relationship Specialty Start Date End Date Kerline Sotelo DO [address] [facility] [place] [address] PCP - General Family Medicine 03/29/23 documented as of this encounter
--- OUTSIDE RECORDS SUMMARY | 2023-10-21 00:22 | External Medical Summary | Summary of Care ---
Author Name Unknown Organization [facility] Address [address] [place] [address] Phone [phone] Care Team Providers Care Catering Associate Name Role Phone Kerline Sotelo DO Primary Care Provider + [phone] Reason for Visit * Reason Comments Acute Encounter Details Date Type Department Care Team (Latest Contact Info) Description 08/13/2023 9:40 AM EST Office Visit Family Practice [address], [place] [address] [place] [address] Kerline Sotelo DO [address] [place] [address] Diarrhea, unspecified type*; Nausea and vomiting, unspecified vomiting type; Shortness of breath; History of amputation of hallux ([facility]); Chronic diastolic heart failure ([facility]); Type 2 diabetes mellitus with other specified complication, unspecified whether snf insulin use ([facility]); Chronic kidney disease, stage 4 (severe) ([facility]); PAD (peripheral artery disease) ([facility]); 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 ([facility]); Secondary hyperparathyroidism of renal origin ([facility]); Hypertensive kidney disease with stage 3b chronic kidney disease ([facility]); Depression, unspecified depression type; Diabetic ulcer of toe of left foot associated with type 2 diabetes mellitus, unspecified ulcer stage ([facility]); Risk and functional assessment Allergies No known active allergiesdocumented as of this encounter (statuses as of 08/13/2023) Medications Medication Sig Dispensed Refills Start Date End Date Status ASPIRIN LOW DOSE 81 MG PO TABSIndications:Oth er specified prophylactic or treatment measure 1 TABLET DAILY 30 Tab 11 05/19/2013 Active Blood Glucose Monitoring Suppl ([employer]) w/Device KITIndications:Elev ated glucose Use up to 4 times a day E11.9 1 Kit 0 12/22/2018 Active ONETOUCH DELICA LANCETS 33G MISC test blood sugars up to four times daily. ICD-10: E11.9 100 Each 11 08/15/2019 Active Spacer/Aero-Holding Chambers DeviceIndications:D OE (dyspnea on exertion),Shortness of breath Use with inhaler. 1 Each 0 09/18/2022 Active Melatonin 10 MG Oral Tablet Take 1 Tablet by mouth at bedtime. 0 Active Spironolactone 25 MG Oral Tablet (Aldactone) TAKE ONE-HALF TABLET BY MOUTH EVERY MORNING 45 Tablet 3 02/02/2023 02/02/20 24 Active amLODIPine Besylate 10 MG Oral Tablet (Norvasc)Indication s:Essential hypertension with goal blood pressure less than 140/90 TAKE ONE TABLET BY MOUTH EVERY MORNING 90 Tablet 3 02/02/2023 02/02/20 24 Active hydrALAZINE HCl 50 MG Oral Tablet (Apresoline) TAKE ONE AND ONE-HALF TABLETS BY MOUTH EVERY MORNING, ONE AND ONE-HALF TABLETS AT NOON AND ONE AND ONE-HALF TABLETS BEFORE BEDTIME 405 Tablet 3 12/12/2022 12/12/19 24 Active Isosorbide Mononitrate ER 60 MG Oral Tablet Extended Release 24 Hour (Imdur)Indications: ARRIAGA (dyspnea on exertion) TAKE ONE TABLET BY MOUTH EVERY MORNING 90 Tablet 3 11/26/2022 11/26/19 24 Active Atorvastatin Calcium 40 MG Oral Tablet (Lipitor)Indication s:Other hyperlipidemia TAKE ONE TABLET BY MOUTH EVERY MORNING 90 Tablet 3 11/26/2022 11/26/19 24 Active Insulin Pen Needle 31G X 6 MMIndications:Type 2 diabetes mellitus with hemoglobin A1c goal of less than 7.0% ([facility]) USE WITH LANTUS ONCE DAILY OR DIRECTED 300 Each 3 11/20/2022 11/20/19 24 Active Lantus SoloStar 100 UNIT/ML Subcutaneous Solution Pen-injectorIndicat ions:Type 2 diabetes mellitus with hemoglobin A1c goal of less than 7.0% (HCC) INJECT 18 UNITS UNDER THE SKIN ONCE DAILY 30 mL 3 11/20/2022 11/20/19 Active Glucose Blood In Vitro Strip USE TO TEST BLOOD SUGAR FOUR TIMES A DAY 400 Strip 3 10/02/2022 10/02/19 24 Active Terazosin HCl 2 MG Oral CapsuleIndications: Hypertensive kidney disease with chronic kidney disease stage III (HCC),Thoracic aortic aneurysm without rupture (HCC),Hypertensive kidney disease with stage 3b chronic kidney disease (HCC),HTN, goal below 130/80,Labile blood pressure TAKE TWO CAPSULES BY MOUTH AT BEDTIME 180 Capsule 3 09/25/2022 09/29/19 24 Active Lisinopril 40 MG Oral Tablet TAKE ONE TABLET BY MOUTH EVERY DAY IN THE MORNING 90 Tablet 2 09/25/2022 09/25/19 24 Active Additional Information Patient taking differently: 20 mg, Reported on 02/18/2023 Clopidogrel Bisulfate 75 MG Oral Tablet (pLAVix)Indications :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 Every 14 days 2 Each 0 02/19/2023 Active Allopurinol 100 MG Oral Tablet (Zyloprim) Take 2 Tablets by mouth in the morning. 180 Tablet 3 03/20/2023 Active Carvedilol 25 MG Oral Tablet (Coreg)Indications: Hypertensive kidney disease with chronic kidney disease stage III (HCC) TAKE ONE AND ONE-HALF TABLETS BY MOUTH TWICE A DAY 270 Tablet 1 03/24/2023 03/23/20 24 Active Sodium Bicarbonate 650 MG Oral TabletIndications:C hronic kidney disease, stage 4 (severe) (HCC) Take 2 Tablets by mouth in the morning and 2 Tablets before bedtime. 120 Tablet 11 04/06/2023 Active Furosemide 40 MG Oral Tablet (Lasix)Indications: Labile blood pressure,Hypertensi ve kidney disease with stage 3b chronic kidney disease (HCC) Take 1.5 Tablets by mouth 2 times a day. 300 Tablet 3 04/20/2023 Active HYDROcodone-Acetami nophen 5-325 MG Oral Tablet [...] 05/19/2023 Active Calcitriol 0.25 MCG Oral Capsule (Rocaltrol)Indicati ons:Hypertensive kidney disease with stage 3b chronic kidney disease (HCC) Take 1 Capsule by mouth in the morning. 30 Capsule 5 05/19/2023 Active Gabapentin 100 MG Oral Capsule (Neurontin)Indicati ons:Sensory neuropathy TAKE ONE CAPSULE BY MOUTH THREE TIMES A DAY -- IN THE MORNING, AT NOON AND BEFORE BEDTIME 90 Capsule 5 08/05/2023 08/04/20 24 Active Veltassa 8.4 GM Oral Packet (Patiromer Sorbitex Calcium)Indications :Hypertensive kidney disease with stage 3b chronic kidney disease (HCC) Take 8.4 g by mouth in the morning. Please take 3 hours after AM meds. Should not be taken with other medications for full effectiveness.. 30 Each 1 03/27/2023 08/13/19 24 Discontinu ed(Medicat ion List Clean Up) documented as of this encounter (statuses as of 08/13/2023) Active Problems Problem Noted Date Diagnosed Date [...] Secondary hyperparathyroidism of renal origin Atherosclerosis of manzanita ar teries of the extremities with ulceration [...] bilateral 05/28/2020 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manzanita coronary artery without angina pectoris 05/28/2020 Diabetes [...] as of this encounter (statuses as of 08/13/2023) Resolved Problems Problem Noted Date Diagnosed Date [...] as of this encounter (statuses as of 08/13/2023) Immunizations Name Administration Dates Next Due COVID-19 Whole Virus, Rollins Vac, 2-Dose Series ([employer]) 06/10/2021,11/08/2020,10/08/2020 Pneumococcal Polysaccharide PPV23 (Pneumovax) 05/19/2013 Seasonal [...] Sign Reading Time Taken Comments Blood Pressure 120/56 08/13/2023 10:11 AM EST Pulse 72 08/13/2023 10:11 AM EST Temperature 37.1 C (98.8 F) 08/13/2023 10:[address] Respiratory Rate - - Oxygen Saturation 98% 08/13/2023 10:11 AM EST Inhaled Oxygen Concentration - - Weight 87 kg (191 lb 12.8 oz) 08/13/2023 10:11 A M EST Height - - Body Mass Index 26.75 05/06/2023 6:51 AM EDT documented in this encounter Functional Status Functional [...] No 02/21/2022 documented as of this encounter Patient Instructions * Patient Instructions* Susanne Coombs RN - 08/13/2023 10:06 AM EST Patient Instructions - Fall Prevention (This education is for all patients over 65 regardless of symptoms) Remember to take your current medications as prescribed. In order to prevent falls, you are encouraged to: Exercise Utilize assistive/adaptive devices Avoid multifocal lenses when walking Avoid hazards in home Maintain a regular toileting schedule Any questions please contact our office. Preventing Falls in the Home (This education is for all patients over 65 regardless of symptoms) As you get older, falls are more likely. Thats because your reaction time slows. Your muscles and joints may also get stiffer, making them less flexible. Illness, medications, and vision changes can also affect your balance. A fall could leave you unable to live on your own. To make your home safer, follow these tips: Floors Put nonskid pads under area rugs Remove throw rugs Replace worn floor coverings Tack carpets firmly to each step on carpeted stairs. Put nonskid strips on the edges of uncarpeted stairs Keep floors and stairs free of clutter and cords Arrange furniture so there are clear pathways Clean up any spills right away Bathrooms Install grab bars in the tub or shower Apply nonskid strips or put a nonskid rubber mat in the tub or shower Sit on a bath chair to bathe Use bathmats with nonskid backing Lighting Keep a flashlight in each room Put a nightlight along the pathway between the bedroom and the bathroom Joanne Patient Education Copyright 2008 - 2010 Joanne except where otherwise noted Preventing Falls: Exercises to Improve Balance, Flexibility, Strength, and Staying Power (This education is for all patients over 65 regardless of symptoms) Certain types of exercises may help make you less likely to fall. Try the ones below. Or do other exercises that your healthcare provider suggests. Depending on your health, you may need to start slowly. Dont let that stop you. Even small amounts of exercise can help you. Be sure to talk to yourhealthcare provider before starting any exercise program. Improve Balance Many types of exercise can help improve balance. Ramesh chi and yoga are good examples. Heres another one to try. You can do it anytime and almost anywhere. Stand next to a counter or solid support. Push yourself up onto your tiptoes. Hold for 5 seconds. If you start to lose your balance, hold on to the counter. Rest and repeat 5 times. Work up to holding for 20 to 30 seconds, if you can. Increase Flexibility Being more flexible makes it easier for you to move around safely. Try exercises like the seated hamstring stretch. Sit in a chair and put one foot on a stool. Straighten your leg and reach with both hands down either side of your leg. Reach as far down your leg as you can. Hold for about 20 seconds. Go back to the starting position. Then repeat 5 times. Switch legs. Build Strength Resistance exercises help build strength. You can do them without equipment. Or you can use weights, elastic bands, or special machines. One such exercise is called the biceps curl. You can hold a 1 pound weight or even a can of soup. Do this exercise at least 3 times a week. Strive for everyday. Sit up straight in a chair. Keep your elbow close to your body and your wrist straight. Bend your arm, moving your hand up to your shoulder. Then slowly lower your arm. Repeat 5 times. Switch to the other arm. Build Your Staying Power Aerobic exercises make your heart and lungs stronger so you can keep moving longer. Walking and swimming are two of the best types of exercises you can do. Using a stationary bike is great, too. Find an aerobic exercise that you enjoy. Start slowly and build up. Even 5 minutes is helpful. Aimfor a goal of 30 minutes, at least 3 times a week. You dont have to do 30 minutes in one session. Break it up and walk a little throughout the day. More Helpful Tips Start easy. Slowly work up to doing more. Talk with your healthcare provider about the best exercises for you. Call senior centers or health clubs about exercise programs. If needed, have a family member watch you walk every so often to check your stability. Exercise with a friend. Choose an activity you both enjoy. Try exercises that you can do anytime, anywhere. Here are two examples. Have someone with you when you first try these: Practice walking by placing one foot right in front of the other. Stand up and sit down 10 times. Repeat this throughout the day. Joanne Patient Education Copyright 2009 - 2010 Joanne except where otherwise noted. Preventing Falls: Moving Safely Using a Cane or Walker (This education is for all patients over 65 regardless of symptoms) Keep the cane away from your feet so you dont trip. A walking aid, such as a cane or walker, can help you stay more independent and avoid falls. Remember to keep your walking aid within easy reach when youre in a chair or in bed. And learn how to use it safely so you dont injure yourself. Using a Cane If you have a stronger side, hold the cane on that side. Get your balance. Move the cane and your weaker leg forward. Support your weight on both the cane and your weaker side. Step with your stronger leg. Start again from step 1. If youre using a folding walker, be sure you know how to lock it open. Check that its locked open before each use. Using a Walker Roll the walker (or lift it, if youre using one without wheels) forward about 12 inches. Step forward with your weaker leg first. Use the walker to help keep your balance. Bring your other foot forward to the center of the walker. Start again from step 1. Helpful Tips Check with your healthcare provider about the right walking aid to use. Ask about a walker with a seat attached. Check the tips of your cane or walker to make sure they have nonskid covers. Move slowly from room to room. Dont haley. Sit down to get dressed. Use a nena pack or backpack to keep your hands free. Get help for jobs that mean climbing, even on a stepstool. Joanne Patient Education Copyright 2008 - 2010 Joanne except where otherwise noted. Treating Urinary Incontinence in Men (This education is for all patients over 65 regardless of symptoms) You can't always control the release of urine. You may leak urine. Or you may not be able to hold your urine until you can get to a bathroom. This is called urinary incontinence. The problem can be managed. Talk to your doctor about your treatment options. Taking Medications Prescription medications may help you. They may: Help the sphincter to work better. (This is the muscle that closes to keep urine from leaking out of the bladder.) Help stop the bladder from barry too often to push urine out. Help the bladder muscles contract with more force. Help relax the sphincter muscle and allow urine to flow more freely. Making Changes to Your Routine Certain changes in your daily routine may help. These include: Avoiding caffeine and alcohol. Using timed voiding. This is following a schedule for drinking fluids and urinating. Doing Kegel exercises daily. These exercises involve tightening the muscles in your sphincter and around your bladder to help strengthen them. Your doctor can explain how to do them. Using a Catheter A catheter is a narrow tube that is inserted through the urethra into the bladder. It drains urine.A condom catheter covers the penis. It channels urine into a collection bag. It is worn most of thetime. Intermittent catheterization means inserting a catheter to drain the bladder, then removing it. This is done on a regular schedule. Having Surgery If other options don't work, surgery may be recommended. If surgery is an option, your healthcare provider can discuss it with you and explain its risks and benefits. Healing After Prostate Surgery Surgery on the prostate gland can cause incontinence. Most often, the incontinence is only for a short time. It clears up when healing is complete. Very rarely, prostate surgery can result in permanent incontinence. documented in this encounter Progress Notes * Kerline Sotelo, - 08/13/2023 10:08 AM EST SUBJECTIVE: Chief Complaint Patient presents with Acute HPI: Miguel Heller is a 68 year old male who presents today with complaints of weakness and shortness of breath. He notes that he started to get sick about 7-8 days ago. He notes he had flu typesymptoms. He had nausea, vomiting and diarrhea at first. That resolved. No fever. He then has felt weak. He had some pink eye symptoms. He notes that he started to get his wheezing back. He notes that did help. He is feeling short of breath. He notes a dry cough on occasion. No runny nose. He notesno sore throat. He states that his right eye has been matted shut. He has used a warm compress. It improved some. He notes that his eye is sore. He started to get some symptoms in the other eye and it was not as severe. He notes that his egg caser felt he needed to be checked. He feels he is starting to get his appetite back. He was not taking his meds for a few days. He notes his sugars have been ok. He had not taken his insulin for a few days. He feels he is sleeping ok. He notes that he is just feeling weak. PHM: Patient Active Problem List Diagnosis Code HTN, goal below 140/90 I10 Vitamin D deficiency E55.9 Thoracic aortic aneurysm ([facility]) I71.20 Family history of ischemic heart disease Z82.49 Eczema L30.9 Nodule of flexor tendon sheath M67.90 PAD (peripheral artery disease) ([facility]) I73.9 Urinary retention R33.9 BPH with obstruction/lower urinary tract symptoms N40.1, N13.8 DDD (degenerative disc disease), cervical M50.30 Diabetes mellitus with nephropathy ([facility]) E11.21 Diabetes mellitus type 2 with peripheral artery disease ([facility]) E11.51 Aortic root dilatation ([facility]) I77.810 Diabetes mellitus, insulin dependent (IDDM), controlled [id number] Type 2 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, bilateral ([facility]) E11.3313 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 I25.10 Hypertensive kidney disease with stage 3b chronic kidney disease ([facility]) I12.9, N18.32 Depression F32.A Chronic kidney disease, stage 4 (severe) ([facility]) N18.4 Secondary hyperparathyroidism of renal origin ([facility]) N25.81 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 ([facility]) I70.25 Multinodular goiter E04.2 Major depressive disorder with single episode F32.9 Type 2 diabetes mellitus with diabetic neuropathy, with long-term current use of insulin ([facility]) E11.40, Z79.4 Diabetes mellitus ([facility]) E11.9 Dyslipidemia, goal LDL below 70 E78.5 Renal osteodystrophy N25.0 Multiple thyroid nodules E04.2 History of amputation of hallux ([facility]) Z89.419 Cardiac asthma ([facility]) I50.1 Chronic diastolic heart failure ([facility]) I50.32 Type 2 diabetes mellitus with other specified complication ([facility]) E11.69 Diabetic ulcer of toe of left foot associated with type 2 diabetes mellitus ([facility]) E11.621, L97.529 Current Outpatient Medications Medication Sig Dispense Refill [...] 2 times a day. 300 Tablet 3 Pantoprazole Sodium 40 MG Oral Tablet Delayed [...] 90 Capsule 5 Blood Glucose Monitoring Suppl ([employer]) w/Device KIT Use up to 4 times a day E11.9 1 Kit 0 BrightTALK DELS*Bio LANCETS 33G MISC test blood sugars up [...] 8.4 GM Oral Packet (Patiromer Sorbitex Calcium) Take 8.4 g by mouth in the morning. Pleasetake 3 hours after AM meds. Should not be taken with other medications for full effectiveness.. (Patient not taking: Reported on 07/07/2023) 30 Each 1 HYDROcodone-Acetaminophen 5-325 MG Oral Tablet Take 1 Tablet by mouth every 4 hours as needed for Pain, Mild. (Patient not taking: Reported on 08/13/2023) 20 Tablet 0 Veltassa 8.4 GM Oral Packet (Patiromer Sorbitex Calcium) Mix 1 packet (8.4g) in water and drink themorning. (Patient not taking: Reported on 07/07/2023) 30 Each 5 No current facility-administered medications [...] performed by Angeles Arciniega DPM at OR [facility] AORTOGRAM ABDOMINAL-TECH ONLY 05/01/2014 IMAGING SUPERVISION & INTERPRETATION ABDOMINAL AO performed by Erwin Olsen MD at [place] [facility] [place]TOGRAM ABDOMINAL-TECH ONLY 09/01/2019 IMAGING SUPERVISION & INTERPRETATION ABDOMINAL AO performed by Erwin Olsen MD at [facility] AORTOGRAM ABDOMINAL-TECH ONLY N/A 12/16/2021 IMAGING SUPERVISION & INTERPRETATION ABDOMINAL AO performed by Erwin Olsen MD at [facility] AORTOGRAM ABDOMINAL-TECH ONLY 02/21/2022 IMAGING SUPERVISION & INTERPRETATION ABDOMINAL AO performed by Erwin Olsen MD at [facility] AORTOGRAM ABDOMINAL-TECH ONLY 01/19/2023 IMAGING SUPERVISION & INTERPRETATION ABDOMINAL AO performed by Erwin Olsen MD at [place] [facility] COLONOSCOPY, DIAGNOSTIC (RECTUM) 12/13/2013 benign polyp, repeat 5 yrs/COLONOSCOPY FLEXIBLE PROXIMAL DIAGNOSTIC performed by Anoop Abernathy MD at ENDOSCOPY [facility] COLONOSCOPY, DIAGNOSTIC (RECTUM) 03/27/2016 hyperplastic polyps, diverticulosis, repeat 5 yrs/COLONOSCOPY FLEXIBLE PROXIMAL DIAGNOSTIC performed by Sanford Wood MD at ENDOSCOPY [facility] CORONARY ANGIOGRAPHY W/LEFT HEART CATH 09/07/2014 CORONARY ANGIOGRAPHY W/LEFT HEART CATH performed by Viki Bhakta MD at [facility] EGD, FLEXIBLE, DIAGNOSTIC 03/27/2016 normal bx/ESOPHAGOGASTRODUODENOSCOPY (EGD), FLEXIBLE, TRANSORAL, DIAGNOSTIC performed by Sanford Wood MD at ENDOSCOPY [facility] FEM/POP ARTERY REVASC W/ STENT+ANGIOPLASTY 05/01/2014 FEM/POP ARTERY REVASC W/ STENT+ANGIOPLASTY performed by Erwin Olsen MD at [place] [facility] FEM/POP ARTERY REVASC W/ STENT+ANGIOPLASTY Left 07/23/2016 FEM/POP ARTERY REVASC W/ STENT+ANGIOPLASTY performed by Erwin Olsen MD at [place] [facility] FEM/POP ARTERY REVASC W/ STENT+ANGIOPLASTY Right 01/12/2017 FEM/POP ARTERY REVASC W/ STENT+ANGIOPLASTY performed by Erwin Olsen MD at [place] [facility] FEM/POP ARTERY REVASC W/ STENT+ANGIOPLASTY Left 09/01/2019 FEM/POP ARTERY REVASC W/ STENT+ANGIOPLASTY performed by Erwin Olsen MD at [place] [facility] FEM/POP ARTERY REVASC W/ANGIOPLASTY Right 09/12/2015 Drug-coated balloon angioplasty of the right superficial femoral artery. Dr. Olsen. [facility] [place]. FEM/POP ARTERY REVASC W/ANGIOPLASTY Left 12/16/2021 FEM/POP ARTERY REVASC W/ANGIOPLASTY performed by Erwin Olsen MD at [place] [facility] FEM/POP ARTERY REVASC W/ANGIOPLASTY Right 02/21/2022 FEM/POP ARTERY REVASC W/ANGIOPLASTY performed by Erwin Olsen MD at [place] [facility] FEM/POP ARTERY REVASC W/ANGIOPLASTY Right 01/19/2023 FEM/POP ARTERY REVASC W/ANGIOPLASTY performed by Erwin Olsen MD at [place] [facility] INJECTION OF EYE DRUG Left 01/18/2016 # [...] performed by Erwin Olsen MD at [facility] IR ARTERIOGRAM EXTREMITY BILATERAL N/A 12/16/2021 ANGIOGRAPHY EXTREMITY BILATERAL performed by Erwin Olsen MD at [facility] IR ARTERIOGRAM EXTREMITY BILATERAL Right 01/19/2023 ANGIOGRAPHY EXTREMITY BILATERAL performed by Erwin Olsen MD at [facility] IR ARTERIOGRAM EXTREMITY UNILATERAL 05/01/2014 IMAGING SUPERVISION & INTERPRETATION EXTREMITY UNILATERAL performed by Erwin Olsen MD at [facility] IR ARTERIOGRAM EXTREMITY UNILATERAL Left 07/23/2016 IMAGING SUPERVISION & INTERPRETATION EXTREMITY UNILATERAL performed by Erwin Olsen MD at [facility] IR ARTERIOGRAM EXTREMITY UNILATERAL Right 01/12/2017 IMAGING SUPERVISION & INTERPRETATION EXTREMITY UNILATERAL performed by Erwin Olsen MD at [facility] IR ARTERIOGRAM EXTREMITY UNILATERAL Left 09/01/2019 IMAGING SUPERVISION & INTERPRETATION EXTREMITY UNILATERAL performed by Erwin Olsen MD at [facility] IR ARTERIOGRAM EXTREMITY UNILATERAL Right 02/21/2022 IMAGING SUPERVISION & INTERPRETATION EXTREMITY UNILATERAL performed by Erwin Olsen MD at [facility] ([facility] ONLY) left knee ACL [...] performed by Angeles Arciniega DPM at OR [facility] REPAIR RUPTURED ROTATOR CUFF, ACUTE right Review of patient's allergies indicates: No Known Allergies Family History Problem Relation Age of Onset Heart disease Mother in her late 60s Diabetes Father Heart Disorder Father Fatal [place] in his mid 60s Hypertension Father No [...] chills, fatigue, fever and unexpected weight change. Respiratory: Positive for shortness of breath. Negative for cough, chest tightness and wheezing. Cardiovascular: Negative for chest pain, palpitations and leg swelling. Gastrointestinal: Positive for diarrhea, nausea and vomiting. Negative for abdominal pain and constipation. Musculoskeletal: Negative for arthralgias, gait problem and joint swelling. Skin: Negative for color change, pallor and rash. Neurological: Positive for weakness. OBJECTIVE: BP 120/56 (BP Site: Right Arm, BP Position: Sitting, BP Cuff Size: Regular) | Pulse 72 | Temp 37.1 C (98.8 F) | Wt 87 kg (191 lb 12.8 oz) | SpO2 98% | BMI 26.75 kg/m | BSA 2.09 m PHYSICAL EXAM: Physical Exam Constitutional: General: He is not in acute distress. Appearance: He is well-developed. Cardiovascular: Rate and Rhythm: Normal rate and [...] tenderness or deformity. Normal range of motion. Skin: General: Skin is warm and dry. Coloration: Skin is not pale. Findings: No erythema or rash. Neurological: Mental Status: He is alert and oriented to person, place, and time. ASSESSMENT/PLAN: (R19.7) Diarrhea, unspecified type (primary encounter diagnosis) (R11.2) Nausea and vomiting, unspecified vomiting type (R06.02) Shortness of breath Plan: XR CHEST 2 VIEWS, COMPREHENSIVE METABOLIC PANEL, CBC WITH WBC DIFFERENTIAL, COMPREHENSIVE METABOLIC PANEL, CBC WITH WBC DIFFERENTIAL Pt notes that he is overall feeling much better. Will check lab studies today. CXR today. Will await results. He will call with any return of symptoms. Encouraged to stay hydrated and increase oral intake now that he is feeling better. (Z89.419) History of amputation of hallux ([facility]) Plan: Pt with amputation of first 3 toes on left foot. Now following with podiatry for issues with the 4th toe. (I50.32) Chronic diastolic heart failure ([facility]) Plan: No crackles on exam. Does not appear to be fluid overloaded on exam. Continue current regimen. (E11.69) Type 2 diabetes mellitus with other specified complication, unspecified whether snf insulin use ([facility]) Plan: Pt will continue on current regimen. (N18.4) Chronic kidney disease, stage 4 (severe) ([facility]) Plan: Pt following with nephrology. Lab studies today. 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 He should continue on current regimen. (N25.81) Secondary hyperparathyroidism of renal origin ([facility]) Plan: Pt following with nephrology. (I12.9, N18.32) Hypertensive kidney disease with stage 3b chronic kidney disease ([facility]) Plan: BP controlled. No changes today. (F32.A) Depression, unspecified depression type Plan: Pt not currently on medication. (E11.621, L97.529) Diabetic ulcer of toe of left foot associated with type 2 diabetes mellitus, unspecified ulcer stage ([facility]) Plan: Pt will remain on current regimen. (Z13.9) Risk and functional assessment Plan: See nursing note. Follow-up: as scheduled Total time today including reviewing chart before the visit, pertinent labs, imaging reports, face to face time, and documentation time was 42 minutes. Kerline Sotelo DO documented in this encounter Nursing Notes * Susanne Coombs RN - 08/13/2023 10:03 AM EST Acute Pt had flu last week-vomiting/diarrhea-that has improved, normal BM's Having weakness and some SOB/wheezing especially when lays down. Using inhaler and seems to help. Did covid test last night and was negative. States had crusting/matting of right 08/10 and /. USed warm compresses and seems to be improving. Mild dry cough, denies fever/congestion. Declines vaccines and colonoscopy at this time. documented in this encounter Plan of Treatment Upcoming Encounters Date Type Department Care Team (Late st Contact Info) Description 08/18/2023 9:20 AM EST Office Visit Podiatry [facility] [address] [facility] [place] [address] Angeles Arciniega DPM [address] [facility] [place] [address] 08/26/2023 7:30 AM EST Imaging Vascular Lab, [facility] 2nd [facility], [address] [place] [address] 08/26/2023 8:30 AM EST Imaging Vascular Lab, [address], [address] [address] 09/02/2023 2:50 PM EST Office Visit Vascular Surgery, [facility] [address] [facility] [place] [address] Erwin Olsen MD [address] [place] [address] 09/24/2023 4:00 PM EST Office Visit Dermatology, [address] [address] Arabella Motta PA-C [address] [place] [address] [place] [address] 10/19/2023 8:30 AM EDT Office Visit Cardiology, [facility] [address] [facility] [place] [address] Chele Alvarenga PAFatimah [facility] [place] [address] 10/26/2023 1:00 PM EDT Office Visit Family Practice [address] [place] [address] [address] [place] [address] Kerline Sotelo DO [address] [place] [address] 10/27/2023 9:00 AM EDT Office Visit Podiatry [facility] [address] [facility] [place] [address] Angeles Arciniega DPM [address] [facility] [place] [address] Pending Results Name Type Priority Associated Diagnoses Date /Time XR CHEST 2 VIEWS Medical Imaging Routine Nausea and vomiting, unspecified vomiting type Diarrhea, unspecified type Shortness of breath 08/13/2023 10:53 AM EST COMPREHENSIVE METABOLIC PANEL Lab Routine Nausea and vomiting, unspecified vomiting type Diarrhea, unspecified type Shortness of breath 08/13/2023 10:41 AM EST CBC WITH WBC DIFFERENTIAL Lab Routine Nausea and vomiting, unspecified vomiting type Diarrhea, unspecified type Shortness of breath 08/13/2023 10:41 AM EST CBC Lab Routine Nausea and vomiting, unspecified vomiting type Diarrhea, unspecified type Shortness of breath 08/13/2023 10:41 AM EST DIFFERENTIAL, AUTOMATED Lab Routine Nausea and vomiting, unspecified vomiting type Diarrhea, unspecified type Shortness of breath 08/13/2023 10:41 AM EST Scheduled Orders Name Type Priority Associated Diagnoses Orde r Schedule COMPREHENSIVE METABOLIC PANEL Lab Routine Nausea and vomiting, unspecified vomiting type Diarrhea, unspecified type Shortness of breath Expected: 08/13/2023 (Approximate), Expires: 08/12/2024 CBC WITH WBC DIFFERENTIAL Lab Routine Nausea and vomiting, unspecified vomiting type Diarrhea, unspecified type Shortness of breath Expected: 08/13/2023 (Approximate), Expires: 08/13/2024 Scheduled Procedures Name Priority Associated Diagnoses Date/Ti [...] (2 - Td or Tdap) 11/19/2023 11/18/2013 GFR 12/30/2023 07/01/2023, 04/11, 04/09/2023, Additional history exists Diabetic Eye Exam 01/08/2024 01/07/2023, , 11/11/2021, Additional history exists Diabetic Foot Exam 01/27/2024 01/26/2023, 0 03/07/2022, 05/28/2020, Additional history exists Depression Screening 04/20/2024 08/13/2023 Albumin/Creatinine Ratio 05/04/2024 023, 11/13/2022, 07/02/2022, Additional history exists Influenza Vaccine (FLU shot) Completed , 04/10/2022, 05/13/2021, Additional history exists GARDASIL-HPV IMMUNIZATION SERIES Aged Out No longer eligible based on patient's age to complete this topic MENINGOCOCCAL (MENACTRA/MENVEO) Aged Out No longer eligible based on patient's age to complete this topic documented as of this encounter Medical Devices Implanted Type Area Welt Sewer Device Identifier Shelf Expiration Date Model / Serial / Lot Graft Stent Viab [id number] - [id number] Implanted:Qty : 1 on 05/01/2014 [place] [facility] [place] SFA [employer] 03/09/2017 [id number] / / [id number] Stent Complete Sc 6x60 - [id number] Implanted:Qty : 1 on 07/23/2016 by Erwin Olsen MD [place] [facility] [place]: Popliteal Artery [employer] : VASCULAR 02/25/2018 [id number] / / [id number] Graft Stent Viab [id number] - [id number] - [id number] Implanted:Qty : 1 on 01/12/2017 by Erwin Olsen MD [place] [facility] Right: SFA [employer] 10/01/2019 [id number] / [id number] / Stent Peripheral 7 Diam 150x20 - [id number] Implanted:Qty : 1 on 09/01/2019 by Erwin Olsen MD [place] [facility] [place]: SFA [employer] : VASCULAR [id number] 01/12/2022 [id number] / / [id number] Device Vasc Cls Cadn Mynx6/7fr - [id number] Implanted:Qty : 1 on 02/21/2022 by Erwin Olsen MD at [place] [facility] [employer] [id number] 01/07/2023 [id number] / / [id number] documented as of this encounter Visit Diagnoses Diagnosis Diarrhea, unspecified type- Primary Nausea and vomiting, unspecified vomiting type Shortness of breath History of amputation of hallux (HCC) Chronic diastolic heart failure (HCC) Chronic diastolic heart failure Type 2 diabetes mellitus with other specified complication, 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 (HCC) Chronic kidney disease, stage 4 (severe) ([facility]) PAD (peripheral artery disease) (HCC) Peripheral vascular disease, unspecified 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 No Care Teams Catering Associate Relationship Specialty Start Date End Date Kerline Sotelo DO [address] [place] [address] PCP - General Family Medicine 03/29/23 documented as of this encounter"
--- OUTSIDE RECORDS SUMMARY | 2023-10-21 00:22 | External Medical Summary | Summary of Care ---
Author Name Unknown Organization [facility] Address [address] [place] [address] Phone [phone] Care Team Providers Care Toaster Element Repairer Name Role Phone Kerline Sotelo DO Primary Care Provider + [phone] Reason for Visit * Reason Onset Date Comments Test Results 08/14/2023 Encounter Details Date Type Department Care Team ([facility] st Contact Info) Description 08/14/2023 Telephone Family Practice [address], [place] [address] [place] [phone] Kerline Sotelo DO [address] [place] [address] Test Results Allergies No known active allergiesdocumented as of this encounter (statuses as of 08/14/2023) Medications Medication Sig Dispensed Refills Start Date End Date Status ASPIRIN LOW DOSE 81 MG PO TABSIndications:Othe r specified prophylactic or treatment measure 1 TABLET DAILY 30 Tab 11 05/19/2013 Active Blood Glucose Monitoring Suppl (ONETOUCH VERIO) w/Device KITIndications:Erath corwin glucose Use up to 4 times [...] 75 MG Oral Tablet (pLAVix)Indications: Atherosclerosis of northway arteries of the extremities with ulceration (HCC) [...] as of this encounter (statuses as of 08/14/2023) Active Problems Problem Noted Date Diagnosed Date [...] Secondary hyperparathyroidism of renal origin Atherosclerosis of northway ar teries of the extremities with ulceration [...] bilateral 05/28/2020 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 Will take time for him to improve. * Telephone Encounter - Susanne Burch LPN - 08/14/2023 1:08 PM EST Called patient, states he feels about the same. Complaining about the same, feels weak and fatigued. Is going to rest today. Thank you * Telephone Encounter - Kerline Sotelo DO - 08/14/2023 8:09 AM EST Please let pt know: His lab studies looked ok. Renal function was stable. Anemia is stable. Electrolytes were ok. CXR pending but I did not see anything crazy on it. How is he feeling today? documented in this encounter Plan of Treatment Upcoming Encounters Date Type Department Care Team (Late st Contact Info) Description 08/18/2023 9:20 AM EST Office Visit Podiatry [facility] [address] [facility] [place] [address] Angeles Arciniega DPM [address] [facility] [place] [address] 08/26/2023 7:30 AM EST Imaging Vascular Lab, [facility]nd [facility] [address] [facility] [place] [address] 08/26/2023 8:30 AM EST Imaging Vascular Lab, [facility] [facility] [address] [facility] [place] [address] 09/02/2023 2:50 PM EST Office Visit Vascular Surgery, [facility] [address] [facility] [place] [address] [facility] [address] [facility] [address] 09/24/2023 4:00 PM EST Office Visit Dermatology[address] [address] Arabella Motta PA-C [address] [place] [address] [place] [address] 10/19/2023 8:30 AM EDT Office Visit Cardiology, [facility] [address] [facility] [place] [address] Chele Alvarenga, PA-C [address] [facility] [place] [address] 10/26/2023 1:00 PM EDT Office Visit Family Practice [address] [facility], [place] [address] [place] [address] Kerline Sotelo DO 293 [facility] [place] [address] 10/27/2023 9:00 AM EDT Office Visit Podiatry [facility] [address] [facility] [place] [address] Angeles Arciniega, MERLY [address] [place] [address] Scheduled Procedures Name Priority Associated Diagnoses Date/Ti [...] this encounter Medical Devices Implanted Type Area Bridges Supervisor Device Identifier Shelf Expiration Date Model / Serial / Lot Graft Stent Viab [id number] - [id number] [place]ed:Q[place] : 1 [place] 05[place] [facility] [place] SFA [employer] 03/09/2017 [id number] / / [id number] Stent Complete Sc 6x60 - [id number] Implanted:Qty : 1 on 07/23/2016 [place] O[place] [facility] [place]: Popliteal Artery [employer] : VASCULAR 02/25/2018 [id number] / / [id number] Graft Stent Viab 8vmi0gx - [id number] - [id number] Implanted:Qty : 1 on 01/12/2017 by Erwin O[place] [facility] [place] Right: SFA [employer] 10/01/2019 [id number] 02A / [id number] / Stent Peripheral 7 Diam 150x20 - [id number] Implanted:Qty : 1 on 09/01/2019 by Erwin O[place] [facility] [place]: SFA [employer] : VASCULAR [id number] 01/12/2022 [id number] / / [id number] Device [facility] Cls Cadn Mynx6/7fr - [id number] Implanted:Qty : 1 on 02/21/2022 by Erwin Olsen [place] [facility] [facility] [employer] [id number] 01/07/2023 [id number] / / [id number] documented as of this encounter Advance Directives [...] the patient have Health Care Power of Home Health Caregiver? No Care Teams Toaster Element Repairer Relationship Specialty Start Date End Date Kerline Sotelo DO [address] [facility] [place] [address] PCP - General Family Medicine 03/29/23 documented as of this encounter
--- OUTSIDE RECORDS SUMMARY | 2023-10-21 00:22 | External Medical Summary | Summary of Care ---
Author Name Unknown Organization [facility] Address [address] [place] [address] Phone [phone] Care Team Providers Care Bank Consultant Name Role Phone Kerline Sotelo Primary Care Provider + [phone] Reason for Visit * Reason Onset Date Comments case management 05/22/2023 CKD CM pt medica tion Encounter Details Date Type Department Care Team ([facility] st Contact Info) Description 05/22/2023 Telephone Care Coordination [address] [place] [address] Suzie Quintero, retail management keyholder (CKD CM pt medication) Allergies No known active allergiesdocumented as of this encounter (statuses as of 08/21/2023) Medications Medication Sig Dispensed Refills Start Date [...] ICD-10: E11.9 100 Each 11 0 Active Spacer/Aero-Holdin g Chambers DeviceIndications: ARRIAGA (dyspnea on exertion),Shortnes s of breath Use with inhaler. 1 Each 0 3 Active Melatonin 10 MG Oral Tablet Take 1 Tablet by mouth at bedtime. 0 Active Spironolactone 25 MG Oral Tablet (Aldactone) TAKE ONE-HALF TABLET BY MOUTH EVERY MORNING 45 Tablet 024 Active amLODIPine Besylate 10 MG Oral Tablet (Norvasc)Indicatio ns:Essential hypertension with goal blood pressure less than 140/90 TAKE ONE TABLET BY MOUTH EVERY MORNING 90 Tablet 3 024 Active hydrALAZINE HCl 50 MG Oral Tablet (Apresoline) TAKE ONE AND ONE-HALF TABLETS BY MOUTH EVERY MORNING, ONE AND ONE-HALF TABLETS AT NOON AND ONE AND ONE-HALF TABLETS BEFORE BEDTIME 405 Tablet 3 024 Active Isosorbide Mononitrate ER 60 MG Oral Tablet Extended Release 24 Hour (Imdur)Indications :ARRIAGA (dyspnea on exertion) TAKE ONE TABLET BY MOUTH EVERY MORNING 90 Tablet 024 Active Atorvastatin Calcium 40 MG Oral Tablet (Lipitor)Indicatio ns:Other hyperlipidemia TAKE ONE TABLET BY MOUTH EVERY MORNING 90 Tablet 024 Active Insulin Pen Needle 31G X 6 MMIndications:Type 2 diabetes mellitus with hemoglobin A1c goal of less than 7.0% (HCC) USE WITH LANTUS ONCE DAILY OR DIRECTED 300 Each 024 Active Lantus SoloStar 100 UNIT/ML Subcutaneous Solution Pen-injectorIndica tions:Type 2 diabetes mellitus with hemoglobin A1c goal of less than 7.0% (HCC) INJECT 18 UNITS UNDER THE SKIN ONCE DAILY 30 mL 3 024 Active Glucose Blood In Vitro Strip USE TO TEST BLOOD SUGAR FOUR TIMES A DAY 400 Strip 024 Active Terazosin HCl 2 MG Oral CapsuleIndications :Hypertensive kidney disease with chronic kidney disease stage III (HCC),Thoracic aortic aneurysm without rupture (HCC),Hypertensive kidney disease with stage 3b chronic kidney disease (HCC),HTN, goal below 130/80,Labile blood pressure TAKE TWO CAPSULES BY MOUTH AT BEDTIME 180 Capsule 3 024 Active Lisinopril 40 MG Oral Tablet TAKE ONE TABLET BY MOUTH EVERY DAY IN THE MORNING 90 Tablet 3 024 Active Additional Information Patient taking differently: 20 mg, Reported on 02/18/2023 Clopidogrel Bisulfate 75 MG Oral Tablet (pLAVix)Indication s:Atherosclerosis of [place] arteries of the extremities with ulceration (HCC) TAKE ONE TABLET BY MOUTH EVERY DAY IN THE MORNING 100 Tablet 3 3 024 Active FreeStyle Juju 2 Sensor Use as directed. Every 14 days 2 Each 0 3 Active Allopurinol 100 MG Oral Tablet (Zyloprim) Take 2 Tablets by mouth in the morning. 180 Tablet 3 3 Active Carvedilol 25 MG Oral Tablet (Coreg)Indications :Hypertensive kidney disease with chronic kidney disease stage III (HCC) TAKE ONE AND ONE-HALF TABLETS BY MOUTH TWICE A DAY 270 Tablet 1 3 024 Active Sodium Bicarbonate 650 MG Oral TabletIndications: Chronic kidney disease, stage 4 (severe) (HCC) Take 2 Tablets by mouth in the morning and 2 Tablets before bedtime. 120 Tablet 11 3 Active Furosemide 40 MG Oral Tablet (Lasix)Indications :Labile blood pressure,Hypertens kali kidney disease with stage 3b chronic kidney disease (HCC) Take 1.5 Tablets by mouth 2 times a day. 300 Tablet 3 3 Active HYDROcodone-Acetam inophen 5-325 MG Oral Tablet Take 1 Tablet by mouth every 4 hours as needed for Pain, Mild. 20 Tablet 0 3 Active Veltassa 8.4 GM Oral Packet [...] 3 Active Calcitriol 0.25 MCG Oral Capsule (Rocaltrol)Indicat ions:Hypertensive kidney disease with stage 3b chronic kidney disease (HCC) Take 1 Capsule by mouth in the morning. 30 Capsule 5 3 Active Gabapentin 100 MG Oral Capsule (Neurontin)Indicat ions:Sensory neuropathy TAKE ONE CAPSULE BY MOUTH THREE TIMES A DAY -- IN THE MORNING, AT NOON AND BEFORE BEDTIME 90 Capsule 5 3 023 Discontinued(Re fill) Veltassa 8.4 GM Oral Packet (Patiromer Sorbitex Calcium)Indication s:Hypertensive kidney disease with stage 3b chronic kidney disease (HCC) Take 8.4 g by mouth in the morning. Please take 3 hours after AM meds. Should not be taken with other medications for full effectiveness.. 30 Each 1 3 024 Discontinued(Wi dication List Clean Up) Ciprofloxacin HCl 500 MG Oral Tablet (Cipro)Indications :Osteomyelitis of third toe of left foot (HCC) Take 1 Tablet by mouth in the morning for 10 days. 10 Tablet 0 3 023 Discontinued documented as of this encounter (statuses as of 08/21/2023) Active Problems Problem Noted Date Diagnosed Date [...] Secondary hyperparathyroidism of renal origin Atherosclerosis of [place] ar teries of the extremities with ulceration [...] bilateral 05/28/2020 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[place] coronary artery without angina pectoris 05/28/2020 Diabetes [...] as of this encounter (statuses as of 08/21/2023) Resolved Problems Problem Noted Date Diagnosed Date [...] as of this encounter (statuses as of 08/21/2023) Immunizations Name Administration Dates Next Due COVID-19 Whole Virus, Rollins Vac, 2-Dose Series (Sumavision) 06/10/2021,11/08/2020,10/08/2020 Pneumococcal Polysaccharide PPV23 (Pneumovax) 05/19/2013 Seasonal [...] encounter Miscellaneous Notes * Telephone Encounter - Suzie Quintero RN - 05/22/2023 1:33 PM EDT Good afternoon, Spoke with pt, he indicates that he is unable to afford the Valtessa. Co-pay is $247. I spoke with him re: PACE program, he will take the number and contact, but may not qualify becausehe and his ex /partner live together but do not share finances. He is unsure if her income willbe taken into consideration, if so, he will likely not qualify. Are there any other programs to help with the cost? Thank you, Suzie Quintero RN Kidney Transitions Specialist CKD Glass Blowing Lathe Operator documented in this encounter Plan of Treatment Upcoming Encounters Date Type Department Care Team (Late st Contact Info) Description 08/26/2023 7:30 AM EST Imaging Vascular Lab, [facility] 2nd Floor, [address] [place] [address] 08/26/2023 8:30 AM EST Imaging Vascular Lab, [facility] 2nd [facility] [place] [address] [facility] [place] [address] 09/02/2023 2:50 PM EST Office Visit Vascular Surgery, [facility] [address] [facility] [place] [address] Erwin Olsen MD [address] [place] [facility] [place] [address] 09/24/2023 4:00 PM EST Office Visit Dermatology, [address] [address] Arabella Motta PA-C [address] [place] [address] [place] [address] 10/19/2023 8:30 AM EDT Office Visit Cardiology, [facility] [address] [facility] [place] [address] Chele Alvarenga PAHeraclioC 132 [facility] [place] [address] 10/26/2023 1:00 PM EDT Office Visit Family Practice 65 [facility] [address] [place] [address] Kerline Sotelo DO [address] [place] [address] 10/27/2023 9:00 AM EDT Office Visit Podiatry [facility] [address] [facility] [place] [address] Angeles Arciniega DPM 132 [facility] [place] [address] Scheduled Procedures Name Priority Associated Diagnoses Date/Ti [...] this encounter Medical Devices Implanted Type Area Engraver Steel Plate Device Identifier Shelf Expiration Date Model / Serial / Lot Graft Stent Viab [id number] - [id number] Implanted:Qty : 1 on 05/01/2014 at OR [facility] [place] Left: SFA [employer] 03/09/2017 [id number] / / [id number] Stent Complete Sc 6x60 - [id number] Implanted:Qty : 1 on 07/23/2016 by Erwin Olsen MD at OR [facility] [place] Left: Popliteal Artery [employer] : VASCULAR 02/25/2018 [id number] / / [id number] Graft Stent Viab [id number] - [id number] - [id number] Implanted:Qty : 1 on 01/12/2017 by Erwin Olsen MD at OR [facility] [place] Right: SFA [employer] 10/01/2019 [id number] / [id number] / Stent Peripheral 7 Diam 150x20 - [id number] Implanted:Qty : 1 on 09/01/2019 by Erwin Olsen MD at OR [facility] [place] Left: SFA [employer] : VASCULAR [id number] 01/12/2022 [id number] / / [id number] Device Vasc Cls Cadn Mynx6/7fr - [id number] Implanted:Qty : 1 on 02/21/2022 by Erwin Olsen MD at OR [facility] [place] C[employer]OVASCULAR [employer]YNAMICS [id number] 01/07/2023 [id number] / / [id number] documented as of this encounter Advance Directives [...] the patient have Health Care Power of Redrawer? No Care Teams Bank Consultant Relationship Specialty Start Date End Date Kerline Sotelo DO [address] [place] [address] PCP - General Family Medicine 03/29/23 documented as of this encounter
--- OUTSIDE RECORDS SUMMARY | 2023-10-21 00:23 | External Medical Summary ---
Author Name Unknown Address Unknown Organization [id number]:[facility] [place] - [address] [facility] [address] Laboratory Report Ordering Provider Test Date Status MO RAMONRON 08/13/2023 10:41:51 Final Observation Date Value Abnormality Reference (Units ) Status BUN 08/13/2023 10:41:51 57 Above high normal 6-20 (mg/dL) Final Creatinine 08/13/2023 10:41:51 4.2 Above high normal 0.6-1.2 (mg/dL) Final Glomerular filtration rate/1.73 sq M.predicted [Volume Rate/Area] in Serum, Plasma or Blood by Creatinine-based formula (CKD-EPI) 08/13/2023 10:41:51 15 Below low normal >=60 (mL/min) Final eGFR is calculated based on the CKD-EPI 2020 equation SODIUM 08/13/2023 10:41:51 136 135-146 (m mol/L) Final Potassium 08/13/2023 10:41:51 4.5 3.5-5.1 (m mol/L) Final Cl 08/13/2023 10:41:51 101 98-107 (mm ol/L) Final CO2 08/13/2023 10:41:51 20 Below low normal 22- 32 (mmol/L) Final Anion gap 08/13/2023 10:41:51 15 7-15 (mmol /L) Final Glucose 08/13/2023 10:41:51 203 Above high normal 70 -120 (mg/dL) Final Albumin 08/13/2023 10:41:51 4.3 3.8-5.0 (g /dL) Final AST (Aspartate aminotransferase) 08/13/2023 10:41:51 11 10-50 (U/L) Fin al Alk Phos 08/13/2023 10:41:51 160 Above high normal 35 -130 (U/L) Final Bilirubin, Total 08/13/2023 10:41:51 0.7 <=1 .2 (mg/dL) Final Calcium 08/13/2023 10:41:51 9.2 8.4-10.2 ( mg/dL) Final Protein 08/13/2023 10:41:51 7.2 6.0-8.3 (g /dL) Final ALT (Alanine aminotransferase) 08/13/2023 10:41:51 20 10-50 (U/L) Moise keller Performing Location [facility] [place] - [address] [facility] [address]
--- OUTSIDE RECORDS SUMMARY | 2023-10-21 00:23 | External Medical Summary | Summary of Care ---
Author Name Unknown Organization [facility] Address [address] [place] [address] Phone [phone] Care Team Providers Care Eyewear Consultant Name Role Phone Kerline Mayen DO Primary Care Provider Reason for Visit * Reason Comments Medication Refill Encounter Details Date Type Department Care Team ([facility] st Contact Info) Description 08/05/2023 Refill Family Practice [address] [place] [address] [place] [phone] Kerline Mayen DO [address] [place] [address] Sensory neuropathy Allergies No known active allergiesdocumented as of this encounter (statuses as of 08/05/2023) Medications Medication Sig Dispensed Refills Start Date [...] TABLET BY MOUTH EVERY MORNING 45 Tablet 02/02/2023 02/02/20 24 Active amLODIPine Besylate 10 MG Oral Tablet (Norvasc)Indication s:Essential hypertension with goal blood pressure less than 140/90 TAKE ONE TABLET BY MOUTH EVERY MORNING 90 Tablet 02/02/2023 02/02/20 24 Active hydrALAZINE HCl 50 MG Oral Tablet (Apresoline) TAKE ONE AND ONE-HALF TABLETS BY MOUTH EVERY MORNING, ONE AND ONE-HALF TABLETS AT NOON AND ONE AND ONE-HALF TABLETS BEFORE BEDTIME 405 Tablet 12/12/2022 12/12/19 24 Active Isosorbide Mononitrate ER 60 MG Oral Tablet Extended Release 24 Hour (Imdur)Indications: ARRIAGA (dyspnea on exertion) TAKE ONE TABLET BY MOUTH EVERY MORNING 90 Tablet 11/26/2022 11/26/19 24 Active Atorvastatin Calcium 40 MG Oral Tablet (Lipitor)Indication s:Other hyperlipidemia TAKE ONE TABLET BY MOUTH EVERY MORNING 90 Tablet 11/26/2022 11/26/19 24 Active Insulin Pen Needle 31G X 6 MMIndications:Type 2 diabetes mellitus with hemoglobin A1c goal of less than 7.0% ([facility]) USE WITH LANTUS ONCE DAILY OR DIRECTED 300 Each 11/20/2022 11/20/19 24 Active Lantus SoloStar 100 UNIT/ML Subcutaneous Solution Pen-injectorIndicat ions:Type 2 diabetes mellitus with hemoglobin A1c goal of less than 7.0% ([facility]) INJECT 18 UNITS UNDER THE SKIN ONCE DAILY 30 mL 11/20/2022 11/20/19 24 Active Glucose Blood In Vitro Strip USE TO TEST BLOOD SUGAR FOUR TIMES A DAY 400 Strip 10/02/2022 10/02/19 24 Active Terazosin HCl 2 [...] 75 MG Oral Tablet (pLAVix)Indications :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 Please take 3 hours after AM meds. Should not be taken with other medications for full effectiveness.. 30 Each 1 03/27/2023 Active Sodium Bicarbonate 650 MG Oral TabletIndications:C [...] 90 Capsule 5 08/05/2023 08/04/20 24 Active Gabapentin 100 MG Oral Capsule (Neurontin)Indicati ons:Sensory neuropathy TAKE ONE CAPSULE BY MOUTH THREE TIMES A DAY -- IN THE MORNING, AT NOON AND BEFORE BEDTIME 90 Capsule 5 01/06/2023 08/05/20 Discontinu ed(Refill) documented as of this encounter (statuses as of 08/05/2023) Active Problems Problem Noted Date Diagnosed Date Cardiac asthma 09/19/2022 Diabetes mellitus 09/01/2022 Dyslipidemia, goal LDL below 70 09/01/2022 Renal osteodystrophy 09/01/2022 Multiple thyroid nodules 09/01/2022 Vitreous hemorrhage of right eye 09/01/2022 History of amputation of hallux 09/01/2022 Chronic kidney disease, stage 4 (severe) 022 Secondary hyperparathyroidism of renal origin Atherosclerosis of [place] ar teries of the extremities with ulceration [...] bilateral 05/28/2020 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[place] coronary artery without angina pectoris 05/28/2020 Diabetes [...] as of this encounter (statuses as of 08/05/2023) Resolved Problems Problem Noted Date Diagnosed Date Resolved Date Type 2 diabetes mellitus wit h stage [...] as of this encounter (statuses as of 08/05/2023) Immunizations Name Administration Dates Next Due COVID-19 [...] Miscellaneous Notes * Telephone Encounter - Kerline Mayen DO - 08/05/2023 1:53 PM ESTSigned Prescriptions: Disp Refills Gabapentin 100 MG Oral Capsule (Neurontin) 90 Cap*5 Sig: TAKE ONE CAPSULE BY MOUTH THREE TIMES A DAY -- IN THE MORNING, AT NOON AND BEFORE BEDTIME Authorizing Provider: KERLINE MAYEN * Telephone Encounter - Wyatt Montilla [facility] - 08/05/2023 1:52 PM EST Pending Prescriptions: Disp Refills Gabapentin 100 MG Oral Capsule (Neurontin) 90 Cap*5 Sig: TAKE ONE CAPSULE BY MOUTH THREE TIMES A DAY -- IN THE MORNING, AT NOON AND BEFORE BEDTIME * Telephone Encounter - Wyatt Montilla [facility] - 08/05/2023 1:52 PM EST [facility] is currently not authorized to approve refills for the pended medication(s) per refill protocol. Please approve if appropriate. Thank you, Wyatt Montilla, PharmD Clinical Pharmacist Centralized Clinical Pharmacy Services ([facility]) (Formerly [facility]) [phone] 08/05/2023, 1:52 PM * Telephone Encounter - Wyatt Montilla, [facility] - 08/05/2023 1:52 PM EST Did you pend patient's preferred pharmacy and medication before forwarding?yes Pharmacy: [email or web address] Pending Prescriptions: Disp Refills Gabapentin 100 MG Oral Capsule (Neurontin)90 Cap*5 Sig: TAKE ONE CAPSULE BY MOUTH THREE TIMES A DAY -- IN THE MORNING, AT NOON AND BEFORE BEDTIME Last Visit: 04/20/2023 (in office), 02/20/2023 (telemedicine) Next Visit: 10/26/2023 If no future appointments scheduled, and last appointment is greater than a year ago, please schedule patient for a follow-up appointment Last date the medication was ordered: 01/06/2023 Is this request for a controlled substance?No Urine Drug Screen:No results found. However, due to the size of the patient record, not all encounters were searched. Please check Results Review for a complete set of results. Patient Phone Numbers Labs: Lab Results Component Value Date/Time CREAT 4.1 (H) 07/01/2023 01:03 PM CREAT 1.9 (H) 06/07/2020 04:47 PM POTASSIUM 5.1 07/01/2023 01:03 PM POTASSIUM 4.5 06/07/2020 04:47 PM TSH 3.01 10/27/2022 10:21 AM TSH 2.56 12/22/2019 08:53 AM LDLCALC 62 04/09/2023 09:54 AM LDLCALC 67 02/15/2018 09:12 AM LDLDIRECT 77 10/27/2022 10:21 AM LDLDIRECT 74 12/22/2019 08:53 AM ALT 15 04/09/2023 09:54 AM ALT 33 12/22/2019 08:53 AM HGBA1C 8.2 (H) 04/09/2023 09:54 AM HGBA1C 6.9 (H) 04/08/2019 03:04 PM documented in this encounter Plan of Treatment Upcoming Encounters Date Type Department Care Team (Late st Contact Info) Description 08/18/2023 9:20 AM EST Office Visit Podiatry [facility] 132 [facility] [place] [address] Angeles Arciniega, MERLY 132 [facility] [place] [address] 08/26/2023 7:30 AM EST Imaging Vascular Lab, [facility] 2nd [facility], [address] [place] [address] 08/26/2023 8:30 AM EST Imaging Vascular Lab, [facility] 2nd [facility], [address] [place] [address] 09/02/2023 2:50 PM EST Office Visit Vascular Surgery, [address] [place] [address] [facility] [address] [facility] [address] 09/24/2023 4:00 PM EST Office Visit Dermatology[address] [place] [address] Arabella Motta PAFatimah [address] [place] [address] [place] [address] 10/08/2023 8:20 AM EST [facility] [address] Angeles Arciniega DPM [facility] [place] [address] 10/19/2023 8:30 AM EDT Office Visit Cardiology, [facility] 132 [facility] [place] [address] Chele Alvarenga PA-C [facility] [place] [address] 10/26/2023 1:00 PM EDT Office Visit Family Practice [address] [place] [address] 293 [place] [phone] Kerline Mayen DO [address] [place] [address] Scheduled Procedures Name Priority Associated Diagnoses Date/Ti [...] 05/28/2020, Additional history exists Depression Screening 04/20/2024 04/20/2023 Albumin/Creatinine Ratio 05/04/20242 023, 11/13/2022, 07/02/2022, Additional history exists Influenza Vaccine (FLU shot) Completed , 04/10/2022, 05/13/2021, Additional history exists GARDASIL-HPV IMMUNIZATION SERIES Aged Out No longer eligible based on patient's age to complete this topic MENINGOCOCCAL (MENACTRA/MENVEO) Aged Out No longer eligible based on patient's age to complete this topic documented as of this encounter Medical Devices Implanted Type Area Porcelain Enameling Supervisor Device Identifier Shelf Expiration Date Model / Serial / Lot Graft Stent Viab [id number] - [id number] Implanted:Qty : 1 on 05/01/2014 at OR [facility] [place] Left: SFA [employer] 03/09/2017 [id number] / / [id number] Stent Complete Ms 6x60 - [id number] Implanted:Qty : 1 on 07/23/2016 by Erwin Olsen MD at OR [facility] [place] Left: Popliteal Artery [employer] : VASCULAR 02/25/2018 [id number] / / [id number] Graft Stent Viab [id number] - [id number] - [id number] Implanted:Qty : 1 on 01/12/2017 by Erwin Olesn MD at [place] [facility] [place] Right: SFA [employer] 10/01/2019 [id number] / [id number] / Stent Peripheral 7 Diam 150x20 - [id number] Implanted:Qty : 1 on 09/01/2019 by Erwin Olsen MD at [place] [facility] [place] Left: SFA [employer] : VASCULAR [id number] 01/12/2022 [id number] / / [id number] [facility] Cadn Mynx6/7fr - [id number] Implanted:Qty : 1 on 02/21/2022 by Erwin Olsen MD at [place] [facility] [place] CARDIOVASCULAR [employer]YNAMICS [id number] 01/07/2023 [id number] / / [id number] documented as of this encounter Visit Diagnoses Diagnosis Sensory neuropathy Unspecified hereditary and idiopathic peripheral neuropathy documented in this encounter Advance Directives Latest [...] the patient have Health Care Power of Smoking Pipe Mounter? No Care Teams Eyewear Consultant Relationship Specialty Start Date End Date Kerline Mayen DO [address] [place] [address] PCP - General Family Medicine 03/29/23 documented as of this encounter
--- OUTSIDE RECORDS SUMMARY | 2023-10-21 00:23 | External Medical Summary | Summary of Care ---
Author Name Unknown Organization [facility] Address [address] [place] [address] Phone [phone] Care Team Providers Care Well Treatment Offsider Name Role Phone Deepak Kerlinezully Boston DO Primary Care Provider Reason for Visit * Reason Onset Date Comments Nurse Documentation 07/21/202307/21 Information 07/21/202307/21 Encounter Details Date Type Department Care Team ([facility] st Contact Info) Description 07/21/2023 11:45 AM EST Scheduled Telephone Family Practice [address] [address] College, Nurse [facility] [address] [address] Arrived Allergies No known active allergiesdocumented as of this encounter (statuses as of 07/21/2023) Medications Medication Sig Dispensed Refills Start Date End Date Status ASPIRIN LOW DOSE 81 MG PO TABSIndications:Othe r specified prophylactic or treatment measure 1 TABLET DAILY 30 Tab 11 05/19/2013 Active Blood Glucose Monitoring Suppl (ONETOUCH VERIO) w/Device KITIndications:Edward corwin glucose Use up to 4 times [...] MORNING 90 Tablet 3 02/02/2023 4 Active Gabapentin 100 MG Oral Capsule (Neurontin)Indicatio ns:Sensory neuropathy TAKE ONE CAPSULE BY MOUTH THREE TIMES A DAY -- IN THE MORNING, AT NOON AND BEFORE BEDTIME 90 Capsule 5 01/06/2023 4 Active hydrALAZINE HCl 50 MG Oral [...] 75 MG Oral Tablet (pLAVix)Indications: 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 Please take 3 hours after AM meds. Should not be taken with other medications for full effectiveness.. 30 Each 1 03/27/2023 Active Sodium Bicarbonate 650 MG Oral TabletIndications:Ch [...] the morning. 30 Capsule 5 05/19/2023 Active documented as of this encounter (statuses as of 07/21/2023) Active Problems Problem Noted Date Diagnosed Date Cardiac asthma 09/19/2022 Diabetes mellitus 09/01/2022 Dyslipidemia, goal LDL below 70 09/01/2022 Renal osteodystrophy 09/01/2022 Multiple thyroid nodules 09/01/2022 Vitreous hemorrhage of right eye 09/01/2022 History of amputation of hallux 09/01/2022 Chronic kidney disease, stage 4 (severe) 022 Secondary hyperparathyroidism of renal origin Atherosclerosis of [place] ar teries of the extremities with ulceration [...] bilateral 05/28/2020 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[place] coronary artery without angina pectoris 05/28/2020 Diabetes [...] as of this encounter (statuses as of 07/21/2023) Resolved Problems Problem Noted Date Diagnosed Date [...] as of this encounter (statuses as of 07/21/2023) Immunizations Name Administration Dates Next Due COVID-19 Whole Virus, Rollins Vac, 2-Dose Series (Sendoid) 06/10/2021,11/08/2020,10/08/2020 Pneumococcal Polysaccharide PPV23 (Pneumovax) 05/19/2013 Seasonal [...] Telephone Encounter - Yen Paz LPN - 07/21/2023 2:26 PM EST Spoke to patient. Reports he is feeling better. Nausea, vomiting, diarrhea have resolved. Still feels sore, but states he felt well enough to go to work today. Routed to Dr. Sotelo in phone encounter. * Telephone Encounter - Yen Paz LPN - 07/21/2023 2:20 PM EST Call placed to patient. Currently at work. Nausea, vomiting, diarrhea has resolved. Reports he feels sore, but states he felt well enough to go to work today. Instructed to contact office with any further questions/concerns/issues. * Telephone Encounter - Susanne Burch LPN - 07/21/2023 12:30 PM EST Called, left message for patient to return call. Thank you * Telephone Encounter - Yen Paz LPN - 07/21/2023 11:44 AM EST Attempted to call patient for nurse phone call to follow up on illness reported yesterday. No answer - message left for patient to return call to [phone]. documented in this encounter Plan of Treatment Upcoming Encounters Date Type Department Care Team (Late st Contact Info) Description 07/28/2023 8:20 AM EST Office Visit Podiatry [facility] 132 [facility] [place] [address] Angeles Arciniega DPM 132 [place] [address] 07/29/2023 3:00 PM EST Office Visit Nephrology, [facility] 200 [facility] [place] [address] Kindra Blount MD [address] [place] [address] 08/26/2023 7:30 AM EST Imaging Vascular Lab, [facility] [address] [place] [address] 08/26/2023 8:30 AM EST Imaging Vascular Lab, [facility] [address] [place] [address] 09/02/2023 2:50 PM EST Office Visit Vascular Surgery, [facility] [address] [facility] [place] [address] Erwin Olsen MD [address] [place], [place] [id number] 09/24/2023 4:00 PM EST Office Visit Dermatology, [address] [address] Arabella Motta PA-C [address] [place] [address] [place] [id number] 10/08/2023 8:20 AM EST Office Visit Podiatry [facility] [address] [place] [address] Angeles Arciniega, DPLudy [address] [facility] [place] [address] 10/19/2023 8:30 AM EDT Office Visit Cardiology, [facility] [address] [facility] [address] Chele Alvarenga PA-C [address] [place] [address] 10/26/2023 1:00 PM EDT Office Visit Family Practice [address] [place] [address] 293 [place] [id number] Kerline Sotelo DO 293 [place] [address] Scheduled Procedures Name Priority Associated Diagnoses Date/Ti [...] exists Depression Screening 04/20/2024 04/20/2023 Albumin/Creatinine Ratio 05/04/2024 023, 11/13/2022, 07/02/2022, Additional history exists Influenza Vaccine (FLU shot) Completed , 04/10/2022, 05/13/2021, Additional history exists GARDASIL-HPV IMMUNIZATION SERIES Aged Out No longer eligible based on patient's age to complete this topic MENINGOCOCCAL (MENACTRA/MENVEO) Aged Out No longer eligible based on patient's age to complete this topic documented as of this encounter Medical Devices Implanted Type Area Drafter Structural Device Identifier Shelf Expiration Date Model / Serial / Lot Graft Stent Viab [id number] - [id number] [place]ed:Q[place] : 1 [place]01/[place] [facility] [place] SFA [employer] 03/09/2017 [id number] / / [id number] Stent Complete [place] 6x60 - [id number] Implanted:Qty : 1 on 07/23/2016 by Erwin Olsen [place] [facility] [place]: Popliteal Artery [employer] : VASCULAR 02/25/2018 [id number] / / [id number] Graft Stent Viab 2bkp3nb - [id number] - [id number] Implanted:Qty : 1 on 01/12/2017 by Erwin O[place] [facility] [place]: SFA [employer] 10/01/2019 [id number] 02A / [id number] / Stent Peripheral 7 Diam 150x20 - [id number] Implanted:Qty : 1 on 09/01/2019 by Erwin Olsen [place] [facility] [place]: SFA [employer] : VASCULAR [id number] 01/12/2022 [id number] -020-150 / / [id number] Device [facility] Cadn Mynx6/7fr - [id number] Implanted:Qty : 1 on 02/21/2022 by Erwin Olsen [place] [facility] [place] CARDIOVASCULAR DYNAMICS [id number] 01/07/2023 [id number] / / [id number] documented as of this encounter Advance Directives [...] the patient have Health Care Power of Jewel Hole Driller? No Care Teams Well Treatment Offsider Relationship Specialty Start Date End Date Kerline Sotelo DO 293 [place] [address] PCP - General Family Medicine 03/29/23 documented as of this encounter
--- OUTSIDE RECORDS SUMMARY | 2023-10-21 00:23 | External Medical Summary | Summary of Care ---
Author Name Unknown Organization [facility] Address [address] [place] [address] Phone [phone] Care Team Providers Care Busher Helper Name Role Phone Deepak Kerlinezully [place] DO Primary Care Provider Reason for Visit * Reason Comments Follow Up L 4th toe Encounter Details Date Type Department Care Team (Late st Contact Info) Description 07/28/2023 8:20 AM EST Office Visit Podiatry [facility] [address] [place] [address] Angeles Arciniega DPM [address] [facility] [place] [address] Open wound of toe, initial encounter*; Type 2 diabetes mellitus with hemoglobin A1c goal of less than 7.0% ([facility]); PAD (peripheral artery disease) ([facility]) Allergies No known active allergiesdocumented as of this encounter (statuses as of 07/28/2023) Medications Medication Sig Dispensed Refills Start Date End Date Status ASPIRIN LOW DOSE 81 MG PO TABSIndications:Othe r specified prophylactic or treatment measure 1 TABLET DAILY 30 Tab 11 05/19/2013 Active Blood Glucose Monitoring Suppl (ONETOUCH VERIO) w/Device KITIndications:[place] corwin glucose Use up to 4 times [...] FOUR TIMES A DAY 400 Strip 10/02/2022 4 Active Terazosin HCl 2 MG [...] 75 MG Oral Tablet (pLAVix)Indications: 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) [...] as of this encounter (statuses as of 07/28/2023) Active Problems Problem Noted Date Diagnosed Date Cardiac asthma 09/19/2022 Diabetes mellitus 09/01/2022 Dyslipidemia, goal LDL below 70 09/01/2022 Renal osteodystrophy 09/01/2022 Multiple thyroid nodules 09/01/2022 Vitreous hemorrhage of right eye 09/01/2022 History of amputation of hallux 09/01/2022 Chronic kidney disease, stage 4 (severe) 022 Secondary hyperparathyroidism of renal origin Atherosclerosis of [place] ar teries of the extremities with ulceration [...] bilateral 05/28/2020 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[place] coronary artery without angina pectoris 05/28/2020 Diabetes [...] as of this encounter (statuses as of 07/28/2023) Resolved Problems Problem Noted Date Diagnosed Date [...] as of this encounter (statuses as of 07/28/2023) Immunizations Name Administration Dates Next Due COVID-19 Whole Virus, Rollins Vac, 2-Dose Series ([employer]) 06/10/2021,11/08/2020,10/08/2020 Pneumococcal Polysaccharide PPV23 (Pneumovax) 05/19/2013 [...] of this encounter Progress Notes * Angeles Arciniega, DPM - 07/28/2023 8:04 AM EST Podiatry Established Note [facility] Name: Miguel Heller : 1955 Date: 07/28/2023 REASON FOR VISIT: Left foot pain SUBJECTIVE: This patient is a 68 year old male who presents today with complaints of left foot pain. Pt is well known to me, but usually calls when something is wrong. He states he had noticed increased pain to the bottom of his left foot. States he bumped his 4th toe a few weeks ago. Did not call and thinks its better. He would like his nails trimmed today. He is wearing a regular shoe. States he has diabetic shoes/inserts that are old. Has not had any new ones. Presents wearing Sketchers. 07/28/2023- Today, pt presents for follow up. He states the toe is doing better. Stopped putting betadine on the area. Has been wearing a post op shoe. Denies any other complaints. 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) Nonproliferative diabetic retinopathy (HCC) ALLERGIES: Review of patient's allergies indicates: No Known Allergies REVIEW OF SYSTEMS: CONSTITUTIONAL: No change in weight, No weakness, No fatigue, and No fevers, sweats, or chills EYE: No recent significant change in vision and No eye pain, redness, discharge EARS: No ear pain and No drainage NOSE: No history of frequent colds or sinusitis and No nasal stuffiness PULMONARY: No cough, sputum, or hemoptysis and No recent change in breathing CARDIOVASCULAR: No chest pain and No shortness of breath EXTREMITIES: Left foot pain SKIN/INTEGUMENTARY: No edema, No rash, and No itching NEUROLOGIC: Normal balance, No headaches, No seizures, and No weakness PSYCHIATRIC: No depression, No anxiety, and No psychosis FOCUSED PODIATRIC EXAM: Vitals: There were no vitals filed for this visit. General: Patient is awake alert oriented to person place time. No apparent distress. Vascular: DP/PT pulses palpable, dylon. CFT < 3 sec, dylon. Edema noted to the left 4th toe. Temperature gradient is normal warm to cold, dylon. Neurologic: Protective sensation absent to light touch, dylon. Sensation to sharp/dull is absent, dylon. There is no babinski response elicited, dylon. Ankle clonus is absent, dylon. Dermatological: Skin is normal in appearance with no open lesions or interdigital macerations, dylon. Nails 4 and 5, left are elongated and the 4th nail is loose. Nails 1-5, right are elongated, thickened and discolored. Pedal hair is absent, dylon. Stable eschar noted to the distal aspect of the 4th toe. Musculoskeletal: POP noted to the left forefoot. Hx of 1-3 toe amputations, left foot. No pain with active or passive ROM of the digits or ankle joint, dylon. Muscle strength is 5/5 for all muscle groups of the lower extremity, dylon. DIAGNOSTIC STUDIES: 3 views of the left 4th toe- No bony destruction noted. Joint spaces are open and congruent. ASSESSMENT: Left foot pain Hx of 1-3 toe amputations, left foot PVD 4th toe trauma, left DM2 with neuropathy PLAN: - Discussed xray and agreed today. Personally reviewed. - I am concerned about the 4th toe as this is how he always starts. He stopped applying the betadine, but instructed him to perform daily. - Discussed with pt preventative management and if he loses this 4th toe, he will need a TMA/ASIA, left foot. Pt states his understanding. - Pt to RTC in 2 weeks for wound check. As of right now, he is stable. Instructed to call with any problems or questions. Angeles Arciniega DPM documented in this encounter Nursing Notes * Cathy Herrera LPN - 07/28/2023 7:57 AM EST Pt presents for 2 week follow up L 4th toe, reports feeling better but still sore. Did not test BSGtoday. documented in this encounter Plan of Treatment Upcoming Encounters Date Type Department Care Team (Late st Contact Info) Description 07/29/2023 3:00 PM EST Office Visit Nephrology, [facility] [place] [address] Kindra Blount MD 200 [facility] [place] [address] 08/26/2023 7:30 AM EST Imaging Vascular Lab, [address] 132 [place] [address] 08/26/2023 8:30 AM EST Imaging Vascular Lab, [address] [facility] [address] 09/02/2023 2:50 PM EST Office Visit Vascular Surgery, [facility] 132 [place] [address] Erwin Olsen MD [address] [place] [address] 09/24/2023 4:00 PM EST Office Visit Dermatology, [address] [id number] Arabella Motta, PAHeraclioC [address] [place] [address] [place] [address] 10/08/2023 8:20 AM EST Office Visit Podiatry [facility] 132 [facility] [place] [address] Angeles Arciniega, DPM [address] [facility] [address] 10/19/2023 8:30 AM EDT Office Visit Cardiology, [facility] 132 [facility] [place] [address] Chele Alvarenga PA-C [facility] [place] [address] 10/26/2023 1:00 PM EDT Office Visit Family Practice [address] [place] [address], [place] 293 [place] [address] Kerline Sotelo DO 293 [place] [address] Pending Results Name Type Priority Associated Diagnoses Date /Time XR TOES 2 OR MORE VIEWS Medical Imaging Routine Type 2 diabetes mellitus with hemoglobin A1c goal of less than 7.0% (HCC) PAD (peripheral artery disease) (HCC) Open wound of toe, initial encounter 07/28/2023 8:15 AM EST Scheduled Procedures Name Priority Associated [...] this encounter Medical Devices Implanted Type Area Director Student Union Device Identifier Shelf Expiration Date Model / Serial / Lot Graft Stent Viab [id number] - [id number] Implanted:Qty : 1 on 05/01/2014 at [place] [facility] [place] Left: SFA [employer] 03/09/2017 [id number] / / [id number] Stent Complete [place] 6x60 - [id number] Implanted:Qty : 1 on 07/23/2016 by Erwin Olsen MD at [place] [facility] [place] Left: Popliteal Artery [employer] : VASCULAR 02/25/2018 [id number] / / [id number] Graft Stent Viab 2xrr8dx - [id number] - [id number] Implanted:Qty : 1 on 01/12/2017 by Erwin Olsen MD at [place] [facility] [place] Right: SFA [employer] 10/01/2019 [id number] 02A / [id number] / Stent Peripheral 7 Diam 150x20 - [id number] Implanted:Qty : 1 on 09/01/2019 by Erwin Olsen MD at [place] [facility] [place] Left: SFA [employer] : VASCULAR [id number] 01/12/2022 [id number] -020-150 / / [id number] Device Vasc Cls Cadn Mynx6/7fr - [id number] Implanted:Qty : 1 on 02/21/2022 by Erwin Olsen MD at OR [facility] [place] CARDIOVASCULAR DYNAMICS [id number] 01/07/2023 [id number] / / [id number] documented as of this encounter Visit Diagnoses Diagnosis Open wound of toe, initial encounter- Primary Type 2 diabetes mellitus with hemoglobin A1c goal of less than 7.0% (HCC) PAD (peripheral artery disease) (HCC) Peripheral vascular disease, unspecified documented in this encounter Advance Directives Latest [...] the patient have Health Care Power of Engineer? No Care Teams Busher Helper Relationship Specialty Start Date End Date Kerline Sotelo DO 293 [place] [address] PCP - General Family Medicine 03/29/23 documented as of this encounter
--- OUTSIDE RECORDS SUMMARY | 2023-10-21 00:23 | External Medical Summary | Summary of Care ---
Author Name Unknown Organization [facility] Address [address] [place] [address] Phone [phone] Care Team Providers Care Hardware Design Engineer Name Role Phone eDepak Kerlinezully Boston DO Primary Care Provider [phone] Reason for Visit * Reason Onset Date Comments Nurse Documentation 07/21/202307/21 Information 07/21/202307/21 Encounter Details Date Type Department Care Team ([facility] st Contact Info) Description 07/21/2023 11:45 AM EST Scheduled Telephone Family Practice [address] [address] College, Nurse [facility] [address] [address] Arrived Allergies No known active allergiesdocumented as of this encounter (statuses as of 07/21/2023) Medications Medication Sig Dispensed Refills Start Date End Date Status ASPIRIN LOW DOSE 81 MG PO TABSIndications:Othe r specified prophylactic or treatment measure 1 TABLET DAILY 30 Tab 11 05/19/2013 Active Blood Glucose Monitoring Suppl (ONETOUCH VERIO) w/Device KITIndications:[place] corwin glucose Use up to 4 times [...] 75 MG Oral Tablet (pLAVix)Indications: 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 * Telephone Encounter - Yen Paz LPN [...] left for patient to return call to [phone]. documented in this encounter Plan of Treatment Upcoming Encounters Date Type Department Care Team (Late st Contact Info) Description 07/28/2023 8:20 AM EST Office Visit Podiatry [facility] 132 [facility] [place] [address] Angeles Arciniega DPM 132 [facility] [place] [address] 07/29/2023 3:00 PM EST Office Visit Nephrology, [facility] 200 [facility] [place] [address] Kindra Blount MD 200 [facility] [place] [address] 08/26/2023 7:30 AM EST Imaging Vascular Lab, [facility] 2nd [facility] 132 [facility] [place] [address] 08/26/2023 8:30 AM EST Imaging Vascular Lab, [facility] 2nd [facility] 132 [facility] [address] 09/02/2023 2:50 PM EST Office Visit Vascular Surgery, [facility] 132 [facility] [place] [address] Erwin Olsen MD [address] [place] [address] 09/24/2023 4:00 PM EST Office Visit Dermatology, [place] [address] [place] [address] Arabella Motta PA-C [address] [place] [address] [place] [address] 10/08/2023 8:20 AM EST Office Visit Podiatry [facility] [address] [facility] [place] [address] Angeles Arciniega, DPLudy [address] [facility] [place] [address] 10/19/2023 8:30 AM EDT Office Visit Cardiology, [facility] [address] [facility] [place] [address] Chele Alvarenga PA-C [address] [place] [address] 10/26/2023 1:00 PM EDT Office Visit Family Practice [address] [place] [address] 293 [place] [phone] Kerline Sotelo DO 293 [facility] [address] Scheduled Procedures Name Priority Associated Diagnoses Date/Ti [...] this encounter Medical Devices Implanted Type Area Pull Through Hooker Device Identifier Shelf Expiration Date Model / Serial / Lot Graft Stent Viab [id number] - [id number] Implanted:Qty : 1 on 05/01/2014 [place] [facility] [place] Left: SFA [employer] 03/09/2017 [id number] / / [id number] Stent Complete [place] 6x60 - [id number] Implanted:Qty : 1 on 07/23/2016 by Erwin Olsen MD at [place] [facility] [place] Left: Popliteal Artery [employer] : VASCULAR 02/25/2018 [id number] / / [id number] Graft Stent Viab [id number] - [id number] - [id number] Implanted:Qty : 1 on 01/12/2017 by Erwin Olsen MD at [place] [facility] [place] Right: SFA [employer] 10/01/2019 [id number] 02A / [id number] / Stent Peripheral 7 Diam 150x20 - [id number] Implanted:Qty : 1 on 09/01/2019 by Erwin Olsen MD at [place] [facility] [place] Left: SFA [employer] : VASCULAR [id number] 01/12/2022 [id number] -020-150 / / [id number] Device Vas Cls Cadn Mynx6/7fr - [id number] Implanted:Qty : 1 on 02/21/2022 by Erwin Olsen MD at [place] [facility] [place] CARDIOVASCULAR DYNAMICS [id number] 01/07/2023 [id number] / / [id number] documented as of this encounter Advance Directives [...] the patient have Health Care Power of Fire Prevention Forester? No Care Teams Hardware Design Engineer Relationship Specialty Start Date End Date Kerline Sotelo DO 293 [facility] [place] [address] PCP - General Family Medicine 03/29/23 documented as of this encounter
--- OUTSIDE RECORDS SUMMARY | 2023-10-21 00:23 | External Medical Summary | Summary of Care ---
Author Name Unknown Organization [facility] Address [address] [place] [address] Phone [phone] Care Team Providers Care Coil Assembler Name Role Phone MarleneKerline chinchilla Ludy CASTELLANO Primary Care Provider [phone] Reason for Visit * Reason Onset Date Comments Test Results 07/03/2023 Encounter Details Date Type Department Care Team ([facility] st Contact Info) Description 07/03/2023 Telephone Ne[facility]rologyRos[place] [address] [place] [address] Kindra Blount MD 200 [place] [address] Test Results Allergies No known active allergiesdocumented as of this encounter (statuses as of 07/22/2023) Medications Medication Sig Dispensed Refills Start Date End Date Status ASPIRIN LOW DOSE 81 MG PO TABSIndications:Othe r specified prophylactic or treatment measure 1 TABLET DAILY 30 Tab 11 05/19/2013 Active Blood Glucose Monitoring Suppl (ONETOUCH VERIO) w/Device KITIndications:Jewell corwin glucose Use up to 4 times [...] 75 MG Oral Tablet (pLAVix)Indications: 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) [...] as of this encounter (statuses as of 07/22/2023) Active Problems Problem Noted Date Diagnosed Date Cardiac asthma 09/19/2022 Diabetes mellitus 09/01/2022 Dyslipidemia, goal LDL below 70 09/01/2022 Renal osteodystrophy 09/01/2022 Multiple thyroid nodules 09/01/2022 Vitreous hemorrhage of right eye 09/01/2022 History of amputation of hallux 09/01/2022 Chronic kidney disease, stage 4 (severe) 022 Secondary hyperparathyroidism of renal origin Atherosclerosis of [place] ar teries of the extremities with ulceration [...] bilateral 05/28/2020 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[place] coronary artery without angina pectoris 05/28/2020 Diabetes [...] as of this encounter (statuses as of 07/22/2023) Resolved Problems Problem Noted Date Diagnosed Date [...] as of this encounter (statuses as of 07/22/2023) Immunizations Name Administration Dates Next Due COVID-19 Whole Virus, Rollins Vac, 2-Dose Series (ZeroPercent.us) 06/10/2021,11/08/2020,10/08/2020 Pneumococcal Polysaccharide PPV23 (Pneumovax) 05/19/2013 Seasonal [...] encounter Miscellaneous Notes * Telephone Encounter - Tami August RN - 07/03/2023 11:43 AM EST This has been fully explained to the patient, who indicates understanding. * Telephone Encounter - Tami August RN - 07/03/2023 11:42 AM EST ----- Message from Grant Hernandez MD sent at 07/03/2023 11:28 AM EST ----- Abnormal but stable to be addressed next visit. documented in this encounter Plan of Treatment Upcoming Encounters Date Type Department Care Team (Late st Contact Info) Description 07/28/2023 8:20 AM EST Office Visit Podiatry [facility] [address] [place] [address] Angeles Arciniega DPM [address] [place] [address] 07/29/2023 3:00 PM EST Office Visit Nephrology, [facility] [address] [place] [address] Kindra Blount MD [address] [place] [address] 08/26/2023 7:30 AM EST Imaging Vascular Lab, [facility] 2nd [facility] [address] [facility] [place] [address] 08/26/2023 8:30 AM EST Imaging Vascular Lab, [facility] 2nd [facility] [address] [facility] [place] [address] 09/02/2023 2:50 PM EST Office Visit Vascular Surgery, [facility] [address] [facility] [place] [address] Erwin Olsen MD [address] [place] [address] 09/24/2023 4:00 PM EST Office Visit Dermatology, [address] [address] Arabella Motta PAHeraclioC [address] [place] [address] [place] [address] 10/08/2023 8:20 AM EST Office Visit Podiatry [facility] 132 [facility] [place] [address] Angeles Arciniega DPM 132 [facility] [place] [address] 10/19/2023 8:30 AM EDT Office Visit Cardiology, [facility] [address] [facility] [place] [address] Chele Alvarenga, PA-C [facility] [place] [address] 10/26/2023 1:00 PM EDT Office Visit Family Practice [address] [place] [address] 293 [place] [address] Kerline Sotelo DO 293 [place] [address] Scheduled Procedures Name Priority Associated Diagnoses Date/Ti [...] this encounter Medical Devices Implanted Type Area Product Management Internship Device Identifier Shelf Expiration Date Model / Serial / Lot Graft Stent Viab [id number] - [id number] Implanted:Qty : 1 on 05/01/2014 at [place] [facility] [place] Left: SFA [employer] 03/09/2017 [id number] / / [id number] Stent Complete Sc 6x60 - [id number] Implanted:Qty : 1 on 07/23/2016 by Erwin Olsen MD at [place] [facility] [place] Left: Popliteal Artery [employer] : VASCULAR 02/25/2018 [id number] / / [id number] Graft Stent Viab 0taq0af - [id number] - [id number] Implanted:Qty : 1 on 01/12/2017 by Erwin Olsen MD at [place] [facility] Right: SFA [employer] 10/01/2019 [id number] / [id number] / Stent Peripheral 7 Diam 150x20 - [id number] Implanted:Qty : 1 on 09/01/2019 by Erwin Olsen MD at [place] [facility] Left: SFA [employer] : VASCULAR [id number] 01/12/2022 [id number] / / [id number] Device [facility] Cls Cadn Mynx6/7fr - [id number] Implanted:Qty : 1 on 02/21/2022 by Erwin Olsen MD at [place] [facility] [place] CARDIOVASCULAR DYNAMICS [id number] 01/07/2023 [id number] / / [id number] documented as of this encounter Advance Directives [...] the patient have Health Care Power of Loan Supervisor? No Care Teams Coil Assembler Relationship Specialty Start Date End Date Kerline Sotelo DO [address] [place] [address] PCP - General Family Medicine 03/29/23 documented as of this encounter
--- OUTSIDE RECORDS SUMMARY | 2023-10-21 00:23 | External Medical Summary | Summary of Care ---
Author Name Unknown Organization [facility] Address [address] [place] [address] Phone [phone] Care Team Providers Care Olive Pitter Name Role Phone MarleneKerline chinchilla Ludy CASTELLANO Primary Care Provider [phone] Encounter Details Date Type Department Care Team ([facility] st Contact Info) Description 07/30/2023 Specialty Pharmacy [facility], [address] [address] Medication, [place] [facility] Refill, [address] [address] Allergies No known active allergiesdocumented as of this encounter (statuses as of 07/30/2023) Medications Medication Sig Dispensed Refills Start Date End Date Status ASPIRIN LOW DOSE 81 MG PO TABSIndications:Othe r specified prophylactic or treatment measure 1 TABLET DAILY 30 Tab 11 05/19/2013 Active Blood Glucose Monitoring Suppl (ONETOUCH VERIO) w/Device KITIndications:[place] corwin glucose Use up to 4 times [...] 75 MG Oral Tablet (pLAVix)Indications: 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) [...] as of this encounter (statuses as of 07/30/2023) Active Problems Problem Noted Date Diagnosed Date Cardiac asthma 09/19/2022 Diabetes mellitus 09/01/2022 Dyslipidemia, goal LDL below 70 09/01/2022 Renal osteodystrophy 09/01/2022 Multiple thyroid nodules 09/01/2022 Vitreous hemorrhage of right eye 09/01/2022 History of amputation of hallux 09/01/2022 Chronic kidney disease, stage 4 (severe) 022 Secondary hyperparathyroidism of renal origin Atherosclerosis of [place] ar teries of the extremities with ulceration [...] bilateral 05/28/2020 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[place] coronary artery without angina pectoris 05/28/2020 Diabetes [...] as of this encounter (statuses as of 07/30/2023) Resolved Problems Problem Noted Date Diagnosed Date [...] as of this encounter (statuses as of 07/30/2023) Immunizations Name Administration Dates Next Due COVID-19 Whole Virus, Rollins Vac, 2-Dose Series (OM Latam) 06/10/2021,11/08/2020,10/08/2020 Pneumococcal Polysaccharide PPV23 (Pneumovax) 05/19/2013 Seasonal [...] as of this encounter Progress Notes * Elio Parada RPh - 07/30/2023 2:54 PM EST Prescribed medication: Medication: veltassa Shipment date: 08/04 Delivery method: Specialty Mail Location Medication Delivered too? Home Address: [address] [place] [phone] Elio Parada RPh [facility] 07/30/2023,2:54 PM documented in this encounter Plan of Treatment Upcoming Encounters Date Type Department Care Team (Late st Contact Info) Description 08/18/2023 9:20 AM EST Office Visit Podiatry [facility] [address] [address] Angeles Arciniega DPM [address] [place] [address] 08/26/2023 7:30 AM EST Imaging Vascular Lab, [facility] 2nd [facility] [address] [place] [address] [address] 08/26/2023 8:30 AM EST Imaging Vascular Lab, [facility] 2nd [facility] [address] [address] 09/02/2023 2:50 PM EST Office Visit Vascular Surgery, [facility] [address] [place] [address] Erwin Olsen MD [address] [place] [address] 09/24/2023 4:00 PM EST Office Visit Dermatology, [place] [address] [place] [address] Arabella Motta PA-C [address] [place] [address] [place] [address] 10/08/2023 8:20 AM EST Office Visit Podiatry [facility] [address] [facility] [place] [address] Angeles Arciniega DPM [address] [facility] [place] [address] 10/19/2023 8:30 AM EDT Office Visit Cardiology, [facility] 132 [facility] [place] [address] Chele Alvarenga PAHeraclioC [address] [place] [address] 10/26/2023 1:00 PM EDT Office Visit Family Practice [address] [place] [address] 293 [place] [address] Kerline Sotelo DO [address] [place] [address] Scheduled Procedures Name Priority Associated Diagnoses Date/Ti [...] this encounter Medical Devices Implanted Type Area Corrections Specialist Device Identifier Shelf Expiration Date Model / Serial / Lot Graft Stent Viab [id number] - [id number] Implanted:Qty : 1 on 05/01/2014 at OR [facility] [place] Left: SFA [employer] 03/09/2017 [id number] / / [id number] Stent Complete [place] 6x60 - [id number] Implanted:Qty : 1 on 07/23/2016 by Erwin Olsen MD at OR [facility] [place] Left: Popliteal Artery [employer] : VASCULAR 02/25/2018 [id number] / / [id number] Graft Stent Viab [id number] - [id number] - [id number] Implanted:Qty : 1 on 01/12/2017 by Erwin Olsen MD at OR [facility] [place] Right: SFA [employer] 10/01/2019 [id number] / [id number] / Stent Peripheral 7 Diam 150x20 - [id number] Implanted:Qty : 1 on 09/01/2019 by Erwin Olsen MD at OR [facility] [place] Left: SFA [employer] : VASCULAR [id number] 01/12/2022 [id number] -020-150 / / [id number] Device Vasc Cls Cadn Mynx6/7fr - [id number] Implanted:Qty : 1 on 02/21/2022 by Erwin Olsen MD at OR [facility] [place] CARDIOVASCULAR DYNAMICS [id number] 01/07/2023 [id number] / / [id number] documented as of this encounter Advance Directives [...] the patient have Health Care Power of Sql Consultant? No Care Teams Olive Pitter Relationship Specialty Start Date End Date Kerline Sotelo DO [address] [place] [address] PCP - General Family Medicine 03/29/23 documented as of this encounter
--- OUTSIDE RECORDS SUMMARY | 2023-10-21 00:23 | External Medical Summary | Summary of Care ---
Author Name Unknown Organization [facility] Address [address] [place] [address] Phone [phone] Care Team Providers Care Risk Engineer Name Role Phone DinoKerline craven Primary Care Provider [phone] Reason for Visit * Reason Onset Date Comments Pre-Op Testing 04/22/2023 Encounter Details Date Type Department Care Team (Late st Contact Info) Description 04/22/2023 Telephone Pre Surgery Center, [facility] [address] [place] [address] Miguel Villalobos MD [address] [place] [address] Pre-Op Testing Allergies No known active allergiesdocumented as of [...] BY MOUTH EVERY MORNING 45 Tablet 3 024 Active amLODIPine Besylate 10 MG Oral Tablet (Norvasc)Indicatio ns:Essential hypertension with goal blood pressure less than 140/90 TAKE ONE TABLET BY MOUTH EVERY MORNING 90 Tablet 3 024 Active Gabapentin 100 MG Oral Capsule (Neurontin)Indicat ions:Sensory neuropathy TAKE ONE CAPSULE BY MOUTH THREE TIMES A DAY -- IN THE MORNING, AT NOON AND BEFORE BEDTIME 90 Capsule 5 3 024 Active hydrALAZINE HCl 50 MG [...] EVERY MORNING 90 Tablet 3 024 Active Atorvastatin Calcium 40 MG Oral Tablet (Lipitor)Indicatio ns:Other hyperlipidemia TAKE ONE TABLET BY MOUTH EVERY MORNING 90 Tablet 3 024 Active Insulin Pen Needle 31G X 6 MMIndications:Type 2 diabetes mellitus with hemoglobin A1c goal of less than 7.0% ([facility]) USE WITH LANTUS ONCE DAILY OR DIRECTED 300 Each 3 024 Active Lantus SoloStar 100 UNIT/ML Subcutaneous Solution Pen-injectorIndica tions:Type 2 diabetes mellitus with hemoglobin A1c goal of less than 7.0% ([facility]) INJECT 18 UNITS UNDER THE SKIN ONCE DAILY 30 mL 3 024 Active Glucose Blood In Vitro Strip USE TO TEST BLOOD SUGAR FOUR TIMES A DAY 400 Strip 3 024 Active Terazosin HCl 2 MG Oral CapsuleIndications :Hypertensive kidney disease with chronic kidney disease stage III (HCC),Thoracic aortic aneurysm without rupture (HCC),Hypertensive kidney disease with stage 3b chronic kidney disease (HCC),HTN, goal below 130/80,Labile blood pressure TAKE TWO CAPSULES BY MOUTH AT BEDTIME 180 Capsule 3 3 024 Active Lisinopril 40 MG Oral Tablet TAKE ONE TABLET BY MOUTH EVERY DAY IN THE MORNING 90 Tablet 2 3 024 Active Additional Information Patient taking differently: 20 mg, Reported on 02/18/2023 Clopidogrel Bisulfate 75 MG Oral Tablet (pLAVix)Indication s: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 Please take 3 hours after AM meds. Should not be taken with other medications for full effectiveness.. 30 Each 1 3 Active Sodium Bicarbonate 650 MG Oral TabletIndications: [...] a day. 300 Tablet 3 3 Active Vitamin D 50 MCG (2000 UT) Oral Capsule Take 6,000 Units by mouth daily. 3 capsules daily 270 Cap 3 0 023 Discontinued(Ct dication List Clean Up) Calcitriol 0.25 MCG Oral Capsule (Rocaltrol)Indicat ions:Hypertensive kidney disease with stage 3b chronic kidney disease (HCC) Take 1 Capsule by mouth in the morning. 30 Capsule 5 3 023 Discontinued(Re fill) Pantoprazole Sodium 40 MG Oral Tablet Delayed Release (Protonix)Indicati ons:ARRIAGA (dyspnea on exertion),Shortnes s of breath TAKE ONE TABLET BY MOUTH EVERY EVENING 100 Tablet 1 3 023 Discontinued(Re fill) Silver sulfADIAZINE 1 % External Cream (Silvadene) Apply to left foot wound daily. 50 g 1 3 023 Discontinued Veltassa 8.4 GM Oral Packet (Patiromer Sorbitex Calcium)Indication s:Hypertensive kidney disease with stage 3b chronic kidney disease (HCC) Mix 1 packet (8.4g) in water and drink the morning. 30 Each 1 3 023 Discontinued Clindamycin HCl 300 MG Oral CapsuleIndications :Osteomyelitis of third toe of left foot (HCC) Take 2 Capsules by mouth in the morning and 2 Capsules at noon and 2 Capsules before bedtime. 60 Capsule 0 3 023 Discontinued Ciprofloxacin HCl 500 MG Oral Tablet (Cipro)Indications :Osteomyelitis of third toe of left foot (HCC) Take 1 Tablet by mouth in the morning for 10 days. 10 Tablet 0 3 023 Discontinued Hospital, Clinic, or Other Facility Administered Medication Ordered Dose Route Frequency Start Date End Date Status Albuterol Sulfate (Proventil) (2.5 MG/3ML) 0.083% inhalation solution 2.5 mgIndications:ARRIAGA (dyspnea on exertion),Aortic root dilatation (HCC),Ascending aorta dilatation (HCC),PAD (peripheral artery disease) (HCC) 2.5 mg NEBULIZER PRN 08/14/2022 3 Discontinued Albuterol Sulfate (Proventil) (5 MG/ML) 0.5% *conc* inhalation solution 2.5 mgIndications:ARRIAGA (dyspnea on exertion),Aortic root dilatation (HCC),Ascending aorta dilatation (HCC),PAD (peripheral artery disease) (HCC) 2.5 mg NEBULIZER PRN 08/14/2022 3 Discontinued Aflibercept (Eylea) intraviteal prefilled syringe 2 mgIndications: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, unspecified whether alf insulin use (HCC) 2 mg IZ PRN 11/24/2022 3 Discontinued ROPivacaine (Naropin) inj 1.5 mgIndications: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, unspecified whether alf insulin use (HCC) 1.5 mg IJ PRN 11/24/2022 3 Discontinued documented as of this encounter (statuses as of 07/22/2023) Active Problems Problem Noted Date Diagnosed Date Cardiac asthma 09/19/2022 Diabetes mellitus 09/01/2022 Dyslipidemia, goal LDL below 70 09/01/2022 Renal osteodystrophy 09/01/2022 Multiple thyroid nodules 09/01/2022 Vitreous hemorrhage of right eye 09/01/2022 History of amputation of hallux 09/01/2022 Chronic kidney disease, stage 4 (severe) 022 Secondary hyperparathyroidism of renal origin Atherosclerosis of [place] ar teries of the extremities with ulceration [...] bilateral 05/28/2020 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[place] coronary artery without angina pectoris 05/28/2020 Diabetes [...] COVID-19 Whole Virus, Rollins Vac, 2-Dose Series ([facility]) 06/10/2021,11/08/2020,10/08/2020 Pneumococcal Polysaccharide PPV23 (Pneumovax) 05/19/2013 Seasonal Influenza, PF, 6 M & above, IM , (FluLaval or Fluzone) 05/13/2021,05/28/2020,05/25/2019,08/18 Seasonal Influenza, Quadriva lent Hd (Fluzone Hd) 04/10/2022 Seasonal Influenza, Quadriva lent, No Preserve, IM [...] encounter Miscellaneous Notes * Telephone Encounter - Chele Alvarenga PA-C - 04/22/2023 3:05 PM EDT High risk. Agree with straight local in the OR. Continue aspirin, clopidogrel, carvedilol, isosorbide, amlodipine, and hydralazine without periprocedure interruption. Chele Alvarenga PA-C Department of Cardiology * Telephone Encounter - Mary Zurita RN - 04/22/2023 11:21 AM EDT In reviewing the patient's chart prior to calling to complete his ROS for anesthesia, it was noted that he was to have a cardiac cath following initiation of dialysis. Per nephrology note dated 04/10/23, dialysis has been placed on hold at this time. Dr. Hector Villalobos, [facility] anesthesia, was contacted and he reviewed the patient's most recent visit notes from PCP, cardiology and nephrology. At this time Dr. Villalobos is requesting cardiology input prior to Ethan's upcoming Left 2nd toe amputation on 05/06/23 to be performed at [facility] under MAC anesthesia. documented in this encounter Plan of Treatment Upcoming Encounters Date Type Department Care Team (Late st Contact Info) Description 07/28/2023 8:20 AM EST Office Visit Podiatry [address] [place] [address] Angeles Arciniega DPM [address] [facility] [place] [address] 07/29/2023 3:00 PM EST Office Visit Nephrology, [facility] [address] [place] [address] Kindra Blount MD [address] [place] [address] 08/26/2023 7:30 AM EST Imaging Vascular Lab, [facility] 2nd [facility] [place] 132 [facility] [place] [address] 08/26/2023 8:30 AM EST Imaging Vascular Lab, [facility] 2nd [facility] 132 [facility] [place] [address] 09/02/2023 2:50 PM EST Office Visit Vascular Surgery, [facility] 132 [facility] [place] [address] Erwin Olsen MD [address] [place] [address] 09/24/2023 4:00 PM EST Office Visit Dermatology, [address] [address] Arabella Motta, PA-Michael [address] [place] [address] [place] [address] 10/08/2023 8:20 AM EST Office Visit Podiatry [facility] [place] [address] Angeles Arciniega, MERLY [address] [place] [address] 10/19/2023 8:30 AM EDT Office Visit Cardiology, [facility] 132 [facility] [place] [address] Chele Alvarenga PA-C [address] [place] [address] 10/26/2023 1:00 PM EDT Office Visit Family Practice [address], [place] 293 [place] [id number] Kerline Sotelo DO 293 [facility] [place] [address] Scheduled Procedures Name Priority Associated Diagnoses Date/Ti [...] this encounter Medical Devices Implanted Type Area Energy Sales Consultant Device Identifier Shelf Expiration Date Model / Serial / Lot Graft Stent Viab [id number] - [id number] [place]planted:Qty : 1 on 05/01/2014 [place] [facility] [place]: SFA [employer] 03/09/2017 [id number] / / [id number] Stent Complete [place] 6x60 - [id number] Implanted:Qty : 1 on 07/23/2016 by Erwin Olsen MD [place] [facility] [place]: Popliteal Artery [employer] : VASCULAR 02/25/2018 [id number] / / [id number] Graft Stent Viab 7qsx3ik - [id number] - [id number] Implanted:Qty : 1 on 01/12/2017 by Erwin Olsen MD [place] [facility] [place]: SFA [employer] 10/01/2019 [id number] / [id number] / Stent Peripheral 7 Diam 150x20 - [id number] Implanted:Qty : 1 on 09/01/2019 by Erwin Olsen MD [place] [facility] [place]: SFA [employer] : VASCULAR [id number] 01/12/2022 [id number] -020-150 / / [id number] Device [facility] Cadn Mynx6/7fr - [id number] Implanted:Qty : 1 on 02/21/2022 by Erwin Olsen MD [place] [facility] [place] CARDIOVASCULAR DYNAMICS [id number] 01/07/2023 [id number] / / [id number] documented as of this encounter Advance Directives [...] the patient have Health Care Power of Media Center Assistant? No Care Teams Risk Engineer Relationship Specialty Start Date End Date Kerline Sotelo DO [address] [place] [address] PCP - General Family Medicine 03/29/23 documented as of this encounter
--- OUTSIDE RECORDS SUMMARY | 2023-10-21 00:23 | External Medical Summary ---
Author Name Unknown Address Unknown Organization K01:[facility] [place] [address] [facility] [address] Laboratory Report Ordering Provider Test Date Status YENNYTIARRA 08/13/2023 10:41:51 Final Observation Date Value Abnormality Reference (Units ) Status SYNC LEUKOCYTES IN BLOOD BY AUTOMATED COUNT 08/13/2023 10:41:51 10.06 4.00-10.80 (K/uL) Final Segs 08/13/2023 10:41:51 75.3 Above high normal 40.0-75.0 (%) Final Lymphs % 08/13/2023 10:41:51 15.3 Below low normal 18.0-42.0 (%) Final Monos 08/13/2023 10:41:51 8.6 1.0-11.0 (%) Final Eosinophils 08/13/2023 10:41:51 0.4 0.0-6.0 (%) Final Basos 08/13/2023 10:41:51 0.2 0.0-2.0 (%) Final Immature Granulocyte, Percent 08/13/2023 10:41:51 0.2 0.0-2.0 (%) Final Absolute Segs 08/13/2023 10:41:51 7.57 1.80-7.70 (K/uL) Final Lymphs, absolute 08/13/2023 10:41:51 1.54 1.00-4.80 (K/ul) Final Monos, Abs 08/13/2023 10:41:51 0.87 0.00-1.10 (K/uL) Final Eos, Abs 08/13/2023 10:41:51 0.04 0.00-0.70 (K/uL) Final Basos, Abs 08/13/2023 10:41:51 0.02 0.00-0.20 (K/uL) Final Immature Granulocytes, Number 08/13/2023 10:41:51 0.02 0.00-0.20 (K/uL) Final Performing Location [facility] [place] [address] [facility] [address]
--- OUTSIDE RECORDS SUMMARY | 2023-10-21 00:23 | External Medical Summary | Summary of Care ---
Author Name Unknown Organization [facility] Address [address] [place] [address] Phone [phone] Care Team Providers Care Bed Worker Name Role Phone Deepak Kerlinezully [place] DO Primary Care Provider [phone] Reason for Visit * Reason Comments Follow Up L 4th toe Encounter Details Date Type Department Care Team (Late st Contact Info) Description 07/28/2023 8:20 AM EST Office Visit Podiatry [facility] [address] [place] [address] Angeles Arciniega DPM [address] [facility] [place] [address] Open wound of toe, initial encounter*; Type 2 diabetes mellitus with hemoglobin A1c goal of less than 7.0% ([facility]); PAD (peripheral artery disease) ([facility]) Allergies No known active allergiesdocumented as of this encounter (statuses as of 07/28/2023) Medications Medication Sig Dispensed Refills Start Date End Date Status ASPIRIN LOW DOSE 81 MG PO TABSIndications:Othe r specified prophylactic or treatment measure 1 TABLET DAILY 30 Tab 11 05/19/2013 Active Blood Glucose Monitoring Suppl (ONETOUCH VERIO) w/Device KITIndications:Gilbert corwin glucose Use up to 4 times [...] 75 MG Oral Tablet (pLAVix)Indications: 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) [...] Secondary hyperparathyroidism of renal origin Atherosclerosis of [place] ar teries of the extremities with ulceration [...] bilateral 05/28/2020 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[place] coronary artery without angina pectoris 05/28/2020 Diabetes [...] COVID-19 Whole Virus, Rollins Vac, 2-Dose Series ([employer]) 06/10/2021,11/08/2020,10/08/2020 Pneumococcal Polysaccharide PPV23 (Pneumovax) 05/19/2013 [...] 07/28/2023 8:04 AM EST Podiatry Established Note [facility] Name: Miguel Heller : 1955 [...] 07/29/2023 3:00 PM EST Office Visit Nephrology, [facility] [address] [place] [address] Kindra Blount MD [address] [place] [address] 08/18/2023 9:20 AM EST Office Visit Podiatry [facility] 132 [facility] [place] [address] Angeles Arciniega DPM [address] [place] [address] 08/26/2023 7:30 AM EST Imaging Vascular Lab, [facility], [place] [address] [facility] [place] [address] 08/26/2023 8:30 AM EST Imaging Vascular Lab, [facility], [place] [address] [facility] [place] [address] 09/02/2023 2:50 PM EST Office Visit Vascular Surgery, [facility] [address] [facility] [place] [address] Erwin Olsen MD [address] [facility], [place] [address] 09/24/2023 4:00 PM EST Office Visit Dermatology, [address] [address] Arabella Motta PAHeraclioC [address] [place] [address] [place] [address] 10/08/2023 8:20 AM EST Office Visit Podiatry [facility] [address] [facility] [address] Angeles Arciniega DPM [address] [place] [address] 10/19/2023 8:30 AM EDT Office Visit Cardiology, [facility] [address] [facility] [address] Chele Alvarenga PAFatimah [address] [place] [address] 10/26/2023 1:00 PM EDT Office Visit Family Practice [address] [place] [address] 293 [place] [address] Kerline Sotelo DO 293 [place] [address] Pending Results Name Type Priority Associated Diagnoses [...] this encounter Medical Devices Implanted Type Area Resin Maker Device Identifier Shelf Expiration Date Model / Serial / Lot Graft Stent Viab 8bfs7ly - [id number] Implanted:Qty : 1 on 05/01/2014 at [place] [facility] [place] Left: SFA [employer] 03/09/2017 [id number] / / [id number] Stent Complete Sc 6x60 - [id number] Implanted:Qty : 1 on 07/23/2016 by Erwin Olsen MD at OR [facility] Left: Popliteal Artery [employer] : VASCULAR 02/25/2018 [id number] / / [id number] Graft Stent Viab 3sfr7ur - [id number] - [id number] Implanted:Qty : 1 on 01/12/2017 by Erwin Olsen MD at OR [facility] Right: SFA [employer] 10/01/2019 [id number] / [id number] / Stent Peripheral 7 Diam 150x20 - [id number] Implanted:Qty : 1 on 09/01/2019 by Erwin Olsen MD at OR [facility] Left: SFA [employer] : VASCULAR [id number] 01/12/2022 [id number] / / [id number] Device [facility] Cls Cadn Mynx6/7fr - [id number] Implanted:Qty : 1 on 02/21/2022 by Erwin Olsen MD at OR [facility] CARDIOVASCULAR DYNAMICS [id number] 01/07/2023 [id number] / / [id number] documented as of this encounter Visit Diagnoses [...] the patient have Health Care Power of Associate Professor Of Criminal Justice? No Care Teams Bed Worker Relationship Specialty Start Date End Date Kerline Sotelo DO [address] [place] [address] PCP - General Family Medicine 03/29/23 documented as of this encounter
--- OUTSIDE RECORDS SUMMARY | 2023-10-21 00:24 | External Medical Summary | Summary of Care ---
Author Name Unknown Organization [facility] Address [address] [place] [address] Phone [phone] Care Team Providers Care Finance Business Partner Name Role Phone Kerline Sotelo DO Primary Care Provider [phone] Reason for Visit * Reason Comments Follow Up L foot Encounter Details Date Type Department Care Team (Late st Contact Info) Description 07/09/2023 9:00 AM EST Office Visit Podiatry [facility] [address] [facility] [place] [address] Angeles Arciniega DPM [address] [facility] [place] [address] Toe injury, left, initial encounter*; Type 2 diabetes mellitus with hemoglobin A1c goal of less than 7.0% ([facility]); PAD (peripheral artery disease) ([facility]); Pain in both feet; History of amputation of hallux ([facility]) Allergies No known active allergiesdocumented as of this encounter (statuses as of 07/09/2023) Medications Medication Sig Dispensed Refills Start Date End Date Status ASPIRIN LOW DOSE 81 MG PO TABSIndications:Othe r specified prophylactic or treatment measure 1 TABLET DAILY 30 Tab 11 05/19/2013 Active Blood Glucose Monitoring Suppl (ONETOUCH VERIO) w/Device KITIndications:Moxee corwin glucose Use up to 4 times [...] ONCE DAILY OR DIRECTED 300 Each 11/20/2022 4 Active Lantus SoloStar 100 UNIT/ML Subcutaneous Solution Pen-injectorIndicati ons:Type 2 diabetes mellitus with hemoglobin A1c goal of less than 7.0% (HCC) INJECT 18 UNITS UNDER THE SKIN ONCE DAILY 30 mL 11/20/2022 4 Active Glucose Blood In Vitro [...] 75 MG Oral Tablet (pLAVix)Indications: Atherosclerosis of [place] arteries of the extremities with ulceration (HCC) [...] as of this encounter (statuses as of 07/09/2023) Active Problems Problem Noted Date Diagnosed Date Cardiac asthma 09/19/2022 Diabetes mellitus 09/01/2022 Dyslipidemia, goal LDL below 70 09/01/2022 Renal osteodystrophy 09/01/2022 Multiple thyroid nodules 09/01/2022 Vitreous hemorrhage of right eye 09/01/2022 History of amputation of hallux 09/01/2022 Chronic kidney disease, stage 4 (severe) 022 Secondary hyperparathyroidism of renal origin Atherosclerosis of [place] ar teries of the extremities with ulceration [...] bilateral 05/28/2020 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[place] coronary artery without angina pectoris 05/28/2020 Diabetes [...] as of this encounter (statuses as of 07/09/2023) Resolved Problems Problem Noted Date Diagnosed Date [...] as of this encounter (statuses as of 07/09/2023) Immunizations Name Administration Dates Next Due COVID-19 Whole Virus, Rollins Vac, 2-Dose Series (Hara) 06/10/2021,11/08/2020,10/08/2020 Pneumococcal Polysaccharide PPV23 (Pneumovax) 05/19/2013 SEASONAL INFLUENZA, PF, 6 M & Above, IM , (FLULAVAL or FLUZONE) 05/13/2021,05/28/2020,05/25/2019,08/18 Seasonal Influenza, Quadriva lent Hd (Fluzone [...] this encounter Progress Notes * Angeles Arciniega, MERLY - 07/09/2023 10:06 AM EST Podiatry Established Note [facility] Name: Miguel Heller : 1955 Date: 07/09/2023 REASON FOR VISIT: Left foot pain SUBJECTIVE: [...] had any new ones. Presents wearing Sketchers. Past Medical History: Diagnosis Date Aneurysm of [...] and discolored. Pedal hair is absent, dylon. Musculoskeletal: POP noted to the left forefoot. Hx of 1-3 toe amputations, left foot. No pain with active or passive ROM of the digits or ankle joint, dylon. Muscle strength is 5/5 for all muscle groups of the lower extremity, dylon. DIAGNOSTIC STUDIES: Pt declined. ASSESSMENT: Left foot pain Hx of 1-3 toe amputations, left foot PVD 4th toe trauma, left DM2 with neuropathy PLAN: - Discussed xray, however, pt declined. - I am concerned about the 4th toe as this is how he always starts. Nail removed. Betadine and bandaid applied. Instructed to perform daily. - Rx for diabetic shoes and inserts given as well as places to obtain. - Nails 1-5, right and 4 and 5 left were trimmed with a nail nipper and smooth to appropriate thickness with an electric bur. - Discussed with pt preventative management and if he loses this 4th toe, he will need a TMA/ASIA, left foot. Pt states his understanding. - Pt to RTC in 2 weeks and in 3 months for nail care. Instructed to call with any problems or questions. Angeles Arciniega DPM documented in this encounter Nursing Notes * Cathy Herrera LPN - 07/09/2023 9:11 AM EST Pt presents for follow up L foot, states when he walks, he feels all his weight is on the 2 remaining toes (4th and 5th) and he developed a sore area on the underside of L foot (no open skin). Was maddi regular shoe, went back to a post op shoe. documented in this encounter Plan of Treatment Upcoming Encounters Date Type Department Care Team (Late st Contact Info) Description 07/16/2023 2:30 PM EST Imaging Radiology [address] [place] [address] 07/28/2023 8:20 AM EST Office Visit Podiatry [address] [place] [address] Angeles Arciniega DPM 132 [facility] [place] [address] 08/26/2023 7:30 AM EST Imaging Vascular Lab, [facility] [address] [place] [address] 08/26/2023 8:30 AM EST Imaging Vascular Lab, [facility] [address] [place] [address] 09/02/2023 2:50 PM EST Office Visit Vascular Surgery, [address] [place] [address] Erwin Olsen MD [address] [place] [address] 09/24/2023 4:00 PM EST Office Visit Dermatology[address], [place] [address] Arabella Motta PA-C [address] [place] [address] [place] [address] 10/08/2023 8:20 AM EST Office Visit Podiatry [facility] [address] [place] [address] Angeles Arciniega DPM [address] [facility] [place] [address] 10/19/2023 8:30 AM EDT Office Visit Cardiology, [facility] [address] [facility] [place] [address] Chele Alvarenga PA-C [address] [place] [address] Scheduled Procedures Name Priority Associated Diagnoses Date/Ti [...] this encounter Medical Devices Implanted Type Area Mems Engineer Device Identifier Shelf Expiration Date Model / Serial / Lot Graft Stent Viab 3bwm4ut - [id number] Implanted:Qty : 1 on 05/01/2014 at [place] [facility] Left: SFA [employer] 03/09/2017 [id number] 2 / / [id number] Stent Complete Ak 6x60 - [id number] Implanted:Qty : 1 on 07/23/2016 by Erwin Olsen MD at [place] [facility] Left: Popliteal Artery [employer] : VASCULAR 02/25/2018 [id number] / / [id number] Graft Stent Viab 6avw5yo - [id number] - [id number] Implanted:Qty : 1 on 01/12/2017 by Erwin Olsen MD at OR [facility] Right: SFA [employer] 10/01/2019 [id number] 02A / [id number] / Stent Peripheral 7 Diam 150x20 - [id number] Implanted:Qty : 1 on 09/01/2019 by Erwin Olsen MD at OR [facility] Left: SFA [employer] : VASCULAR [id number] 01/12/2022 [id number] -020-150 / / [id number] Device [facility] Cls Cadn Mynx6/7fr - [id number] Implanted:Qty : 1 on 02/21/2022 by Erwin Olsen MD at OR [facility] CARDIOVASCULAR DYNAMICS [id number] 01/07/2023 [id number] / / [id number] documented as of this encounter Visit Diagnoses Diagnosis Toe injury, left, initial encounter- Primary Type 2 diabetes mellitus with hemoglobin A1c goal of less than 7.0% ([facility]) PAD (peripheral artery disease) ([facility]) Peripheral vascular disease, unspecified Pain in both feet Pain in limb History of amputation of hallux ([facility]) documented in this encounter Advance Directives Latest [...] the patient have Health Care Power of Cutter Wet Machine? No Care Teams Finance Business Partner Relationship Specialty Start Date End Date Kerline Sotelo DO [address] [place] [address] PCP - General Family Medicine 03/29/23 documented as of this encounter
--- OUTSIDE RECORDS SUMMARY | 2023-10-21 00:24 | External Medical Summary | Summary of Care ---
Author Name Unknown Organization [facility] Address [address] [place] [address] Phone [phone] Care Team Providers Care Nibbler Operator Name Role Phone Kerline Sotelo DO Primary Care Provider Reason for Visit * Reason Onset Date Comments Test Results 07/20/2023 Encounter Details Date Type Department Care Team ([facility] st Contact Info) Description 07/20/2023 Telephone Family Practice [address], [place] [address] [place] [id number] Kerline Sotelo DO [address] [place] [address] Test Results Allergies No known active allergiesdocumented as of this encounter (statuses as of 07/20/2023) Medications Medication Sig Dispensed Refills Start Date End Date Status ASPIRIN LOW DOSE 81 MG PO TABSIndications:Othe r specified prophylactic or treatment measure 1 TABLET DAILY 30 Tab 11 05/19/2013 Active Blood Glucose Monitoring Suppl (ONETOUCH VERIO) w/Device KITIndications:Soddy Daisy corwin glucose Use up to 4 times [...] 75 MG Oral Tablet (pLAVix)Indications: 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) [...] as of this encounter (statuses as of 07/20/2023) Active Problems Problem Noted Date Diagnosed Date Cardiac asthma 09/19/2022 Diabetes mellitus 09/01/2022 Dyslipidemia, goal LDL below 70 09/01/2022 Renal osteodystrophy 09/01/2022 Multiple thyroid nodules 09/01/2022 Vitreous hemorrhage of right eye 09/01/2022 History of amputation of hallux 09/01/2022 Chronic kidney disease, stage 4 (severe) 022 Secondary hyperparathyroidism of renal origin Atherosclerosis of [place] ar teries of the extremities with ulceration [...] bilateral 05/28/2020 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[place] coronary artery without angina pectoris 05/28/2020 Diabetes [...] as of this encounter (statuses as of 07/20/2023) Resolved Problems Problem Noted Date Diagnosed Date [...] as of this encounter (statuses as of 07/20/2023) Immunizations Name Administration Dates Next Due COVID-19 Whole Virus, Rollins Vac, 2-Dose Series (HyprKey) 06/10/2021,11/08/2020,10/08/2020 Pneumococcal Polysaccharide PPV23 (Pneumovax) 05/19/2013 SEASONAL [...] encounter Miscellaneous Notes * Telephone Encounter - Susanne Burch LPN - 07/20/2023 8:27 AM EST Sent my [employer] message. * Telephone Encounter - Kerline Sotelo DO - 07/20/2023 8:07 AM EST Please let pt know: His US shows that his thyroid nodules are stable. No changes from last time they were measured. Nothing further needed. documented in this encounter Plan of Treatment Upcoming Encounters Date Type Department Care Team (Late st Contact Info) Description 07/20/2023 4:20 PM EST Office Visit Family Practice [address] [place] [address], [place] 293 [facility] [place] [address] Kerline Sotelo DO 293 [place] [address] 07/28/2023 8:20 AM EST Office Visit Podiatry [facility] 132 [facility] [place] [address] Angeles Arciniega, DPLudy 132 [facility] [place] [address] 07/29/2023 3:00 PM EST Office Visit Nephrology, [facility] [address] [place] [address] Kindra Blount MD [address] [place] [address] 08/26/2023 7:30 AM EST Imaging Vascular Lab, [facility] 2nd Floor, [place] [facility] [place] [address] 08/26/2023 8:30 AM EST Imaging Vascular Lab, [facility] 2nd [facility], [place] 132 [facility] [place] [address] 09/02/2023 2:50 PM EST Office Visit Vascular Surgery, [facility] [place] [address] Erwin Olsen MD [address] [place] [address] 09/24/2023 4:00 PM EST Office Visit Dermatology, [address] [address] Arabella Motta PA-C [address] [place] [address] [place] [address] 10/08/2023 8:20 AM EST Office Visit Podiatry [facility] [address] [place] [address] Angeles Arciniega DPM [address] [place] [address] 10/19/2023 8:30 AM EDT Office Visit Cardiology, [facility] [address] [place] [address] Chele Alvarenga PAHeraclioC [address] [place] [address] 10/26/2023 1:00 PM EDT Office Visit Family Practice [address], [place] 293 [facility] [place] [address] Kerline Sotelo DO 293 [place] [address] Scheduled Procedures Name Priority Associated Diagnoses Date/Ti [...] encounter Medical Devices Implanted Type Area Pull Over Machine Operator Device Identifier Shelf Expiration Date Model / Serial / Lot Graft Stent Viab 5kmh5nk - [id number] Implanted:Q[place] 1 [place] [facility] [place] SFA [employer] 03/09/2017 [id number] / / [id number] Stent Complete [place] 6x60 - [id number] Implanted:Qty : 1 on 07/23/2016 by Erwin O[place] [facility]: Popliteal Artery [employer] : VASCULAR 02/25/2018 [id number] / / [id number] Graft Stent Viab 3fot8fu - [id number] - [id number] Implanted:Qty : 1 on 01/12/2017 by Erwin [place] [facility] [place]: SFA [employer] 10/01/2019 [id number] 02A / [id number] / Stent Peripheral 7 Diam 150x20 - [id number] Implanted:Qty : 1 on 09/01/2019 by Erwin [place] [facility] [place]: SFA [employer] : VASCULAR [id number] 01/12/2022 [id number] -020-150 / / [id number] Device [facility] Cls Cadn Mynx6/7fr - [id number] Implanted:Qty : 1 on 02/21/2022 by Erwin Olsen [place] [facility] CARDIOVASCULAR DYNAMICS [id number] 01/07/2023 [id number] / / [id number] documented as of this encounter Advance Directives [...] the patient have Health Care Power of Corporate Intern? No Care Teams Nibbler Operator Relationship Specialty Start Date End Date Kerline Sotelo DO [address] [place] [address] PCP - General Family Medicine 03/29/23 documented as of this encounter
--- OUTSIDE RECORDS SUMMARY | 2023-10-21 00:24 | External Medical Summary | Summary of Care ---
Author Name Unknown Organization [facility] Address [address] [place] [address] Phone [phone] Care Team Providers Care Hide Paster Name Role Phone MarleneStormy chinchillazully [place] DO Primary Care Provider + [phone] Reason for Visit * Reason Comments Chronic Kidney Disease (CKD) Encounter Details Date Type Department Care Team ([facility] st Contact Info) Description 07/07/2023 2:40 PM EST Office Visit Nephrology, [facility] Ram[facility]rez [address] [place] [address] Kindra Blount MD [address] [place] [address] Chronic kidney disease, stage 4 (severe) (HCC)*; Labile blood pressure; HTN, goal below 130/80; Persistent proteinuria; Gout, unspecified cause, unspecified chronicity, unspecified site; Thoracic aortic aneurysm without rupture, unspecified part (HCC); Coronary artery disease involving [place] heart, unspecified vessel or lesion type, unspecified whether angina present Allergies No known active allergiesdocumented as of this encounter (statuses as of 07/14/2023) Medications Medication Sig Dispensed Refills Start Date End Date Status ASPIRIN LOW DOSE 81 MG PO TABSIndications:Oth er specified prophylactic or treatment measure 1 TABLET DAILY 30 Tab 11 3 Active Blood Glucose Monitoring Suppl (Predixion Software VERIO) w/Device KITIndications:Elev ated glucose Use up to 4 times a day E11.9 1 Kit 0 9 Active ONETOUCH DELICA LANCETS 33G [facility] test blood sugars up to four times [...] MORNING 90 Tablet 3 02/02/20 24 Active Gabapentin 100 MG Oral Capsule (Neurontin)Indicati ons:Sensory neuropathy TAKE ONE CAPSULE BY MOUTH THREE TIMES A DAY -- IN THE MORNING, AT NOON AND BEFORE BEDTIME 90 Capsule 3 01/06/20 24 Active hydrALAZINE HCl 50 MG Oral Tablet (Apresoline) TAKE ONE AND ONE-HALF TABLETS BY MOUTH EVERY MORNING, ONE AND ONE-HALF TABLETS AT NOON AND ONE AND ONE-HALF TABLETS BEFORE BEDTIME 405 Tablet 3 12/12/19 24 Active Isosorbide Mononitrate ER 60 MG Oral Tablet Extended Release 24 Hour (Imdur)Indications: ARRIAGA (dyspnea on exertion) TAKE ONE TABLET BY MOUTH EVERY MORNING 90 Tablet 11/26/19 24 Active Atorvastatin Calcium 40 MG Oral Tablet (Lipitor)Indication s:Other hyperlipidemia TAKE ONE TABLET BY MOUTH EVERY MORNING 90 Tablet 11/26/19 24 Active Insulin Pen Needle 31G X 6 MMIndications:Type 2 diabetes mellitus with hemoglobin A1c goal of less than 7.0% ([facility]) USE WITH LANTUS ONCE DAILY OR DIRECTED 300 Each 11/20/19 24 Active Lantus SoloStar 100 UNIT/ML Subcutaneous Solution Pen-injectorIndicat ions:Type 2 diabetes mellitus with hemoglobin A1c goal of less than 7.0% ([facility]) INJECT 18 UNITS UNDER THE SKIN ONCE DAILY 30 mL 3 11/20/19 24 Active Glucose Blood In Vitro [...] IN THE MORNING 90 Tablet 2 3 09/25/19 24 Active Additional Information Patient taking differently: 20 mg, Reported on 02/18/2023 Clopidogrel Bisulfate 75 MG Oral Tablet (pLAVix)Indications :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 300 Tablet 3 3 Active HYDROcodone-Acetami nophen 5-325 MG Oral Tablet Take 1 Tablet by mouth every 4 hours as needed for Pain, Mild. 20 Tablet 0 3 Active Veltassa 8.4 GM Oral Packet (Patiromer Sorbitex Calcium)Indications :Hypertensive kidney disease with stage 3b chronic kidney disease (HCC) Mix 1 packet (8.4g) in water and drink the morning. 30 Each 5 3 Active Additional Information Patient not taking.Reported [...] the morning. 30 Capsule 5 3 Active Ciprofloxacin HCl 500 MG Oral Tablet (Cipro)Indications: Osteomyelitis of third toe of left foot (HCC) Take 1 Tablet by mouth in the morning for 10 days. 10 Tablet 0 3 07/14/20 23 Discontinued documented as of this encounter (statuses as of 07/14/2023) Active Problems Problem Noted Date Diagnosed Date Cardiac asthma 09/19/2022 Diabetes mellitus 09/01/2022 Dyslipidemia, goal LDL below 70 09/01/2022 Renal osteodystrophy 09/01/2022 Multiple thyroid nodules 09/01/2022 Vitreous hemorrhage of right eye 09/01/2022 History of amputation of hallux 09/01/2022 Chronic kidney disease, stage 4 (severe) 022 Secondary hyperparathyroidism of renal origin Atherosclerosis of [place] ar teries of the extremities with ulceration [...] bilateral 05/28/2020 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[place] coronary artery without angina pectoris 05/28/2020 Diabetes [...] as of this encounter (statuses as of 07/14/2023) Resolved Problems Problem Noted Date Diagnosed Date [...] as of this encounter (statuses as of 07/14/2023) Immunizations Name Administration Dates Next Due COVID-19 Whole Virus, Rollins Vac, 2-Dose Series (Cometa) 06/10/2021,11/08/2020,10/08/2020 Pneumococcal Polysaccharide PPV23 (Pneumovax) 05/19/2013 SEASONAL [...] Sign Reading Time Taken Comments Blood Pressure 138/53 07/07/2023 2:57 PM EST Pulse 61 07/07/2023 2:57 PM EST Temperature 36.4 C (97.6 F) 07/07/2023 2:[address] Respiratory Rate - - Oxygen Saturation - - Inhaled Oxygen Concentration - - Weight 91.8 kg (202 lb 6.4 oz) 07/07/2023 2:57 P M EST Height - - Body Mass Index 28.23 05/06/2023 6:51 AM EDT documented in this [...] this encounter Patient Instructions * Patient Instructions* Kinrda Blount MD - 07/07/2023 3:49 PM EST -will touch base w/ cardiology about need for / timing of cardiac cath and let you know -no medication changes today -avoid medicines like aleve, advil, ibuprofen, aspirin more than 81 mg daily and other NSAIDS whichare not good for kidney patients. Take only tylenol (acetaminophen) up to 2000 mg daily as needed for pain or as directed by your primary care provider. -will refer you to [facility] for transplant evaluation - will work w/ M Ingrid on this -labs every 6 wks or so, next ones in early August documented in this encounter Progress Notes * Kindra Blount MD - 07/07/2023 3:36 PM EST NEPHROLOGY CLINIC NOTE Nephrology, [facility] [address] [address] 07/07/2023, 3:36 PM Patient Name: Miguel Heller BACKGROUND: 68 year old male presents for [...] a time with Urology for this -Admitted [facility] for bacteremia related to toe ulcer in 08/2017. Toe healed. -Obs'd [facility] for acute pancreatitis in December 2018; had JEROME w/ creat 2.5. -Fall 2019 Has L knee bursitis and R elbow effusion. Knee painful intermittently for 1/2 day every 3-4 days>>resolved w/ tx of juwan ruiz Obs'd w/ orthostatic sx and prerenal JEROME late December 2019 [facility] -- presenting creatinine 3.2, down to [...] Early 2020 >> course of doxy for Juwan ruiz. 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 Drinks only unsweetened tea or water. 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 Acc by partner Rachelle to many visits. Follows w/ PCP for DM. Can't golf/walk like he wants to and starting to upset him. TODAY 07/07/2023: very depressed after being declined for txplt [facility] d/t highly calcified iliac arteries. Desires other eval at other centers; recognizes may well get same answer Last few days wearing wound boot L foot b/c of pain over remaining 2 toes / puts weight there sinceamputation; still marked claudication. Had been on veltassa >> was helping but can't afford $300 copay monthly. Overall though feels good; did get a motorized w/c for longer walks; has not tried using yet REVIEW OF SYSTEMS: No F/C, unintended wt loss or gain, energy level and appetite acceptable No palpitations, angina, orthopnea, LE edema No cough, wheeze; stable chronic exertional dyspnea No N/V/D/C/abd pain No dysuria, hematuria, nocturia >2X; no new/worrisome voiding sx L foot as above; marked claudication BL legs variable after sometimes 1/2 block, sometimes 2 blocks No inappropriate bleeding or bruising stable chronic BL foot/ankle paresthesias As above presyncopal or orthostatic symptoms; no falls Current Outpatient Medications Medication Sig Dispense Refill ASPIRIN LOW DOSE 81 MG PO TABS 1 TABLET DAILY 30 Tab 11 Blood Glucose Monitoring Suppl ([employer]ban [employer]) w/Device KIT Use up to 4 times a day E11.9 1 Kit 0 Predixion Software DELApmetrix LANCETS 33G [facility] test blood sugars up [...] BY MOUTH EVERY MORNING 90 Tablet 3 Gabapentin 100 MG Oral Capsule (Neurontin) TAKE ONE CAPSULE BY MOUTH THREE TIMES A DAY -- IN THE MORNING, AT NOON AND BEFORE BEDTIME 90 Capsule 5 hydrALAZINE HCl 50 MG Oral Tablet (Apresoline) [...] mouth in the morning. 30 Capsule 5 FreeStyle Juju 2 Sensor Use as directed. Every 14 days (Patient not taking: Reported on 07/07/2023) 2 Each 0 Veltassa 8.4 GM Oral Packet (Patiromer Sorbitex Calcium) Take 8.4 g by mouth in the morning. Pleasetake 3 hours after AM meds. Should not be taken with other medications for full effectiveness.. (Patient not taking: Reported on 07/07/2023) 30 Each 1 Veltassa 8.4 GM Oral Packet (Patiromer Sorbitex Calcium) Mix 1 packet (8.4g) in water and drink themorning. (Patient not taking: Reported on 07/07/2023) 30 Each 5 No current facility-administered medications for this visit. Review of patient's allergies indicates: No Known Allergies PHYSICAL EXAMINATION: BP Readings from Last 6 Encounters: 07/07/23 138/53 05/06/23 163/77 05/04/23 159/72 04/20/23 110/58 04/10/23 108/67 04/09/23 144/62 Wt Readings from Last 6 Encounters: 07/07/23 91.8 kg (202 lb 6.4 oz) 05/06/23 91.2 kg (201 lb) 05/04/23 91.5 kg (201 lb 12.8 oz) 04/20/23 91.7 kg (202 lb 1.6 oz) 04/10/23 90.8 kg (200 lb 1.6 oz) 04/09/23 90 kg (198 lb 8 oz) Pulse Readings from Last 6 Encounters: 07/07/23 61 05/06/23 73 05/04/23 61 04/20/23 63 04/10/23 66 04/09/23 72 06/08/23 15:53 06/10/23 15:57 06/17/23 16:08 06/18/23 15:21 06/24/23 16:15 06/25/23 16:12 06/29/23 16:02 Systolic BP 115 mm/Hg [1] 156 mm/Hg (H) [1] 145 mm/Hg (H) [1] 114 mm/Hg [1] 115 mm/Hg [1] 159 mm/Hg(H) [1] 119 mm/Hg [1] Diastolic BP 67 mm/Hg [1] 75 mm/Hg [1] 66 mm/Hg [1] 61 mm/Hg [1] 63 mm/Hg [1] 72 mm/Hg [1] 70 mm/Hg[1] Pulse 57 bpm [1] 61 bpm [1] 59 bpm [1] 67 bpm [1] 59 bpm [1] 61 bpm [1] 59 bpm [1] NAD, oriented x 3, ambulatory w/o asst Normocephalic, atraumatic, eomi nonicteric sclerae MMM Supple neck RRR w/o m/g/r; no edema CTAB w/ reasonable air mvt NT abd, +BS, soft No cyanosis or clubbing; L foot in boot No rash No tremor, focal or global weakness; fluent speech, mostly good historian LABS: Recent Labs Units 07/01/23 1303 05/04/23 1440 04/09/23 0954 02/24/23 0842 SODIUM - [facility] mmol/L 136 134* 139 140 POTASSIUM - [facility] mmol/L 5.1 4.8 4.1 4.4 CHLORIDE - [facility] mmol/L 101 102 100 103 CO2 - [facility] mmol/L 23 20* 22 25 BUN - [facility] mg/dL 57* 47* 55* 54* CREATININE - [facility] mg/dL 4.1* 3.5* 4.0* 3.8* ESTIMATED GLOMERULAR FILTRATION RATE - [facility] mL/min 15* 18* 16* 17* Latest Ref Rng 05/05/2022 07/02/2022 08/14/2022 09/01/2022 09/18/2022 10/27/2022 11/13/2022 NEPH-FLOW Cr 0.6 - 1.2 mg/dL 2.4 (H) 2.5 (H) 2.6 (H) 2.8 (H) 3.2 (H) 2.7 (H) 3.2 (H) eGFR >=60 mL/min 30 (L) 28 (L) 26 (L) 24 (L) 21 (L) 25 (L) 21 (L) Latest Ref Rng 12/02/2022 12/10/2022 12/18/2022 12/31/2022 01/07/2023 02/24/2023 04/09/2023 NEPH-FLOW Cr 0.6 - 1.2 mg/dL 3.0 (H) 3.6 (H) 4.1 (H) 4.2 (H) 4.0 (H) 3.8 (H) 4.0 (H) eGFR >=60 mL/min 23 (L) 18 (L) 15 (L) 15 (L) 16 (L) 17 (L) 16 (L) Latest Ref Rng 05/04/2023 07/01/2023 NEPH-FLOW Cr 0.6 - 1.2 mg/dL 3.5 (H) 4.1 (H) eGFR >=60 mL/min 18 (L) 15 (L) Recent Labs Units 07/01/23 1303 05/04/23 1440 04/09/23 0954 10/27/22 1021 02/21/22 1843 08/29/21 0952 HGB - [facility] g/dL 10.7* 10.6* 11.7* 11.9* < > 12.0* FERRITIN - [facility] ng/mL -- -- -- -- -- 201 TRANSFERRIN SATURATION PERCENT - [facility] % -- -- -- -- -- 17 < > = values in this interval not displayed. Recent Labs Units 07/01/23 1303 05/04/23 1440 04/09/23 0954 02/24/23 0842 01/07/23 1405 12/31/22 1412 12/18/22 0824 12/10/22 1417 CALCIUM - [facility] mg/dL 9.2 9.5 9.7 9.3 < > 8.6 < > 8.9 PHOSPHORUS - [facility] mg/dL 5.2* 3.8 4.3 -- -- 5.9* -- 5.0* 25-HYDROXY VITAMIN D - [facility] ng/mL -- -- -- -- -- -- -- 16* PTH - [facility] pg/mL -- -- 340* -- -- -- -- 418* < > = values in this interval not displayed. Latest Reference Range & Units 01/09/21 09:34 12/19/21 13:43 12/10/22 14:17 12/18/22 08:24 Uric Acid 3.4 - 7.0 mg/dL 6.1 6.4 7.5 (H) 8.0 (H) Recent Labs Units 04/09/23 0954 02/24/23 0842 09/01/22 0955 07/02/22 1037 HEMOGLOBIN A1C - [facility] % 8.2* 8.8* 6.7* 6.5* Recent Labs Units 05/04/23 1440 04/09/23 1000 11/13/22 1428 07/02/22 1039 06/19/22 1145 ALBUMIN / CREATININE RATIO, URINE - [facility] mg/g Creat 578* -- 1,486* 3,264* 4,344* PROTEIN/ CREATININE RATIO, URINE - [facility] mg/g -- 701* -- -- -- Recent Labs Units 04/09/23 1012 04/09/23 1000 11/13/22 1428 CLARITY, URINE - [facility] Clear -- Clear GLUCOSE, URINE - [facility] mg/dL Negative -- 100* BILIRUBIN, URINE - [facility] Negative -- Negative KETONE, URINE - [facility] mg/dL Negative -- Negative SPECIFIC GRAVITY, URINE - [facility] 1.015 -- 1.015 BLOOD, URINE - [facility] Negative -- Negative PH, URINE - [facility] Units 6.5 -- 6.0 PROTEIN, URINE - [facility] mg/dL >=300* -- 100* PROTEIN, RANDOM URINE - [facility] mg/dL -- 96 -- UROBILINOGEN, URINE - [facility] mg/dL 0.2 -- Normal NITRITE, URINE - [facility] Negative -- Negative ESTERASE, URINE - [facility] Negative -- Negative BACTERIA, URINE - [facility] /HPF 0-25 -- 0-25 WBC, URINE - [facility] /HPF 0-2 -- 0-2 RBC, URINE - [facility] /HPF 0-2 -- 0-2 ASSESSMENT AND PLAN: Chronic kidney disease, stage 4 (severe) ([facility]) (Primary) Labile blood pressure HTN, goal below 130/80 Persistent proteinuria Gout, unspecified cause, unspecified chronicity, unspecified site Thoracic aortic aneurysm without rupture, unspecified part (HCC) Coronary artery disease involving [place] heart, unspecified vessel or lesion type, unspecified whether angina present Follow Up: Return in about 3 months (around 10/07/2023). Progressive CKD 4 bordering on CKD 5. Tendency to hyperkalemia; mild hyperphosphatemia noted . His renal function has worsened though we have made significant headway on albuminuria -unable to afford veltassa > K borderline but ok for now -cont medium dose ACEI, spironolactone -GFR too low to consider starting SGLT2i -ocntinue sodium bicarbonate and lasix >> vital that he take lasix as rx'd if off of K binder -low phos diet -will refer to [facility] for [facility] opinion on txplt -q 4-6 wk bmp, phos, hgb -cont calcitriol -for PD cath placement Dr Singh when need arises; he est w/ her 04/2023 HTN labile but acceptable on remote monitoring; meets criteria for resistant HTN ->proteinuria dramatically improved w/ better bp control, though still well above goal no longernephrotic -cont lisinopril, spironolactone, amlodipine, lasix, hydralazine, coreg -cont remote bp monitoring -optimize PTH -cont cardiology and vascular f/u Cardiology suspects obstructive CAD and pt for cardiac cath after start of dialysis. This is as of April 2023; note he may well still be months out from dialysis start >> will f/u w/ cardiology, discuss next steps; have CKD CM get back to pt w/ update Hx marked hyperuricemia -cont allopurinol current dose -update level w/ next labs Patient Instructions -will touch base w/ cardiology about need for / timing of cardiac cath and let you know -no medication changes today -avoid medicines like aleve, advil, ibuprofen, aspirin more than 81 mg daily and other NSAIDS whichare not good for kidney patients. Take only tylenol (acetaminophen) up to 2000 mg daily as needed for pain or as directed by your primary care provider. -will refer you to [facility] for transplant evaluation - will work w/ M Ingrid on this -labs every 6 wks or so, next ones in early August I spent a total of 40-54 minutes (exact time 50 mins) on the date of service in preparation, delivery, and documentation of the care provided to Miguel Heller excluding any time spent in the performance of separately billed services. Kindra Blount MD Nephrology, [address] [address] CC: Ref: KERLINE MAYEN[[id number]] [address] [place] [address] (office) [phone] (fax) PCP: KERLINE MAYEN [address] [place] [address] [phone] This chart was completed in part utilizing [employer] Speech Voice Recognition Software. Randomword insertions, pronoun errors, and incomplete sentences are an occasional consequence of this system due to software limitations, and ambient noise. Any questions or concerns about the content, text, or information contained within the body of this dictation should be directly addressed to the provider for clarification. documented in this encounter Nursing Notes * Florina Evans LPN - 07/07/2023 2:57 PM EST Return patient- no recent illness or hospitalizations. Pt stated no swelling in legs. Pt stated no concerns today. Labs done 07/01/23 documented in this encounter Plan of Treatment Upcoming Encounters Date Type Department Care Team (Late st Contact Info) Description 07/16/2023 2:30 PM EST Imaging Radiology [facility] [address] [facility] [place] [address] 07/28/2023 8:20 AM EST Office Visit Podiatry [address] [place] [address] Angeles Arciniega DPM [facility] [address] 08/26/2023 7:30 AM EST Imaging Vascular Lab, [facility] 2nd Floor, [address] [place] [address] 08/26/2023 8:30 AM EST Imaging Vascular Lab, [facility] 2nd Floor, [address] [place] [address] 09/02/2023 2:50 PM EST Office Visit Vascular Surgery, [address] [place] [address] Erwin Olsen MD [address] [facility] [place] [address] 09/24/2023 4:00 PM EST Office Visit Dermatology, [address] [address] Arabella Motta, PA-C [address] [place] [address] [place] [address] 10/08/2023 8:20 AM EST Office Visit Podiatry [facility] [address] [place] [address] Angeles Arciniega, DPLudy [address] [place] [address] 10/19/2023 8:30 AM EDT Office Visit Cardiology, [facility] [address] [place] [address] Chele Alvarenga PA-C [address] [place] [address] Scheduled Procedures Name Priority Associated Diagnoses Date/Ti [...] this encounter Medical Devices Implanted Type Area Traffic And Transport Planner Device Identifier Shelf Expiration Date Model / Serial / Lot Graft Stent Viab [id number] - [id number] Implanted:Qty : 1 on 05/01/2014 at [place] [facility] Left: SFA [employer] 03/09/2017 [id number] / / [id number] Stent Complete Al 6x60 - [id number] Implanted:Qty : 1 on 07/23/2016 by Erwin Olsen MD at [place] [facility] Left: Popliteal Artery [employer] : VASCULAR 02/25/2018 [id number] / / [id number] Graft Stent Viab [id number] - [id number] - [id number] Implanted:Qty : 1 on 01/12/2017 by Erwin Olsen MD at [place] [facility] Right: SFA [employer] 10/01/2019 [id number] / [id number] / Stent Peripheral 7 Diam 150x20 - [id number] Implanted:Qty : 1 on 09/01/2019 by Erwin Olsen MD at [place] [facility] Left: SFA [employer] : VASCULAR [id number] 01/12/2022 [id number] / / [id number] [facility] Cls Cadn Mynx6/7fr - [id number] Implanted:Qty : 1 on 02/21/2022 by Erwin Olsen MD at OR [facility] CARDIOVASCULAR DYNAMICS [id number] 01/07/2023 [id number] / / [id number] documented as of this encounter Visit Diagnoses Diagnosis Chronic kidney disease, stage 4 (severe) (HCC)- Primary Labile blood pressure Elevated blood pressure reading without diagnosis of hypertension HTN, goal below 130/80 Unspecified essential hypertension Persistent proteinuria Proteinuria Gout, unspecified cause, unspecified chronicity, unspecified site Thoracic aortic aneurysm without rupture, unspecified part (HCC) Coronary artery disease involving [place] heart, unspecified vessel or lesion type, unspecified whether angina present documented in this encounter Advance Directives Latest [...] the patient have Health Care Power of Foil Cutter? No Care Teams Hide Paster Relationship Specialty Start Date End Date Kerline Mayen DO [address] [place] [id number] PCP - General Family Medicine 03/29/23 documented as of this encounter
--- OUTSIDE RECORDS SUMMARY | 2023-10-21 00:24 | External Medical Summary | Summary of Care ---
Author Name Unknown Organization [facility] Address [address] [place] [address] Phone [phone] Care Team Providers Care Tentering Machine Feeder Name Role Phone MarleneKerline chinchilla Ludy CASTELLANO Primary Care Provider [phone] Reason for Visit * Reason Onset Date Comments Home Monitoring Alarm 07/08/2023 Encounter Details Date Type Department Care Team (Late st Contact Info) Description 07/08/2023 Home Monitoring Care Coordination [address] [place] [address] Brie Coelho LPN HTN, goal below 140/90* Allergies No known active allergiesdocumented as of this encounter (statuses as of 07/09/2023) Medications Medication Sig Dispensed Refills Start Date End Date Status ASPIRIN LOW DOSE 81 MG PO TABSIndications:Othe r specified prophylactic or treatment measure 1 TABLET DAILY 30 Tab 11 05/19/2013 Active Blood Glucose Monitoring Suppl (ONETOUCH VERIO) w/Device KITIndications:[place] glucose Use up to 4 times [...] AT NOON AND BEFORE BEDTIME 90 Capsule 01/06/2023 4 Active hydrALAZINE HCl 50 MG Oral Tablet (Apresoline) TAKE ONE AND ONE-HALF TABLETS BY MOUTH EVERY MORNING, ONE AND ONE-HALF TABLETS AT NOON AND ONE AND ONE-HALF TABLETS BEFORE BEDTIME 405 Tablet 12/12/2022 4 Active Isosorbide Mononitrate ER 60 MG Oral Tablet Extended Release 24 Hour (Imdur)Indications:D OE (dyspnea on exertion) TAKE ONE TABLET BY MOUTH EVERY MORNING 90 Tablet 11/26/2022 4 Active Atorvastatin Calcium 40 MG [...] 75 MG Oral Tablet (pLAVix)Indications: 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) [...] Secondary hyperparathyroidism of renal origin Atherosclerosis of [place] ar teries of the extremities with ulceration [...] bilateral 05/28/2020 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[place] coronary artery without angina pectoris 05/28/2020 Diabetes [...] [employer]) 06/10/2021,11/08/2020,10/08/2020 Pneumococcal Polysaccharide PPV23 (Pneumovax) 05/19/2013 SEASONAL [...] this encounter Progress Notes * Angeles Veliz, [facility] - 07/09/2023 10:54 AM EST [facility] - Hypertension Management This patient is part of the [facility] 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 Blood Pressure Goal: 140/90 mmHg Type of Alert: Yellow Current Hypertension Medications: Spironolactone 25 mg 1/2 tab daily Amlodpine 10 mg daily Furosemide 60 mg BID Terazosin 2 mg 2 capsules daily Lisinopril 40 mg daily - taking 1/2 tablet daily Carvedilol 25 mg 1.5 tabs BID INCREASE: Hydralazine 50mg - 1 and 1/2 tablets TID Experiencing symptoms related to elevated BP: No Systolic Diastolic HR 115 63 59 159 72 61 119 70 59 140 71 62 Systolic Diastolic HR Average 133 69 60 Hi 159 72 62 Lo 115 63 59 Range 44 9 3 BP Readings from Last 3 Encounters: 07/07/23 138/53 05/06/23 163/77 05/04/23 159/72 Pulse Readings from Last 3 Encounters: 07/07/23 61 05/06/23 73 05/04/23 61 Recent Labs Units 07/01/23 1303 05/04/23 1440 04/09/23 0954 SODIUM - [facility] mmol/L 136 134* 139 POTASSIUM - [facility] mmol/L 5.1 4.8 4.1 CHLORIDE - [facility] mmol/L 101 102 100 CO2 - [facility] mmol/L 23 20* 22 CREATININE - [facility] mg/dL 4.1* 3.5* 4.0* BUN - [facility] mg/dL 57* 47* 55* ASSESSMENT & PLAN: Patient saw nephrology 2 days ago with controlled HTN and no med changes. Home monitoring readings are improved from past readings and WNL for 2 weeks. MEDICATION CHANGES: none Hypertension Medications: Spironolactone 25 mg 1/2 tab daily Amlodpine 10 mg daily Furosemide 60 mg BID Terazosin 2 mg 2 capsules daily Lisinopril 40 mg daily - taking 1/2 tablet daily Carvedilol 25 mg 1.5 tabs BID Hydralazine 50mg - 1 and 1/2 tablets TID HEALTH MAINTENANCE INTERVENTIONS: Labs: Ordered & Scheduled: Up to date FOLLOW UP: As needed Angeles Novak [facility] Clinical Pharmacist - Maintenance Service Dispatcher Medication Therapy Management [facility] 07/09/2023, 10:54 AM * Brie Coelho LPN - 07/08/2023 3:51 PM EST Miguel Kunz [id number] Miguel Kunz is currently participating in the [facility] Hypertension Management Program and has alerted for an Average BP over 7 days > 140/90. Parameters are currently set as follows: Average [...] Description 07/16/2023 2:30 PM EST Imaging Radiology [address] [place] [address] 07/28/2023 8:20 AM EST Office Visit Podiatry [address] [place] [address] Angeles Arciniega DPM [address] [facility] [place] [address] 08/26/2023 7:30 AM EST Imaging Vascular Lab, [facility], [address] [place] [address] 08/26/2023 8:30 AM EST Imaging Vascular Lab, [facility], [place] [address] [facility] [place] [address] 09/02/2023 2:50 PM EST Office Visit Vascular Surgery, [facility] [address] [facility] [place] [address] Erwin Olsen MD [address] [place] [address] 09/24/2023 4:00 PM EST Office Visit Dermatology, [address] [address] Arabella Motta PA-C [address] [place] [address] [place] [address] 10/08/2023 8:20 AM EST Office Visit Podiatry [facility] 132 [facility] [place] [address] Angeles Arciniega DPM 132 [facility] [place] [address] 10/19/2023 8:30 AM EDT Office Visit Cardiology, [facility] 132 [facility] [place] [address] Chele Alvarenga PA-C [facility] [place] [address] Scheduled Procedures Name Priority Associated Diagnoses Date/Ti [...] this encounter Medical Devices Implanted Type Area Api Architect Device Identifier Shelf Expiration Date Model / Serial / Lot Graft Stent Viab [id number] - [id number] Implanted:Qty : 1 on 05/01/2014 at OR [facility] [place] Left: SFA [employer] 03/09/2017 [id number] / / [id number] Stent Complete Sc 6x60 - [id number] Implanted:Qty : 1 on 07/23/2016 by Erwin Olsen MD at OR [facility] [place] Left: Popliteal Artery [employer] : VASCULAR 02/25/2018 [id number] / / [id number] Graft Stent Viab [id number] - [id number] - [id number] Implanted:Qty : 1 on 01/12/2017 by Erwin Olsen MD at OR [facility] [place] Right: SFA [employer] 10/01/2019 [id number] / [id number] / Stent Peripheral 7 Diam 150x20 - [id number] Implanted:Qty : 1 on 09/01/2019 by Erwin Olsen MD at OR [facility] [place] Left: SFA [employer] : VASCULAR [id number] 01/12/2022 [id number] / / [id number] Device Vasc Cls Cadn Mynx6/7fr - [id number] Implanted:Qty : 1 on 02/21/2022 by Erwin Olsen MD at OR [facility] CARDIOVASCULAR DYNAMICS [id number] 01/07/2023 [id number] / / [id number] documented as of this encounter Visit Diagnoses [...] the patient have Health Care Power of Check Out Cashier? No Care Teams Tentering Machine Feeder Relationship Specialty Start Date End Date Kerline Sotelo DO [address] [place] [address] PCP - General Family Medicine 03/29/23 documented as of this encounter
--- OUTSIDE RECORDS SUMMARY | 2023-10-21 00:25 | External Medical Summary | Summary of Care ---
Author Name Unknown Organization [facility] Address [address] [place] [address] Phone [phone] Care Team Providers Care Meat Cutter Apprentice Name Role Phone MarleneKerline chinchilla Ludy CASTELLANO Primary Care Provider [phone] Reason for Visit * Reason Onset Date Comments Home Monitoring Alarm 06/18/2023 Encounter Details Date Type Department Care Team (Late st Contact Info) Description 06/18/2023 Home Monitoring Care Coordination [address] [place] [address] Brie Coelho LPN HTN, goal below 140/90* Allergies No known active allergiesdocumented as of this encounter (statuses as of 06/19/2023) Medications Medication Sig Dispensed Refills Start Date End Date Status ASPIRIN LOW DOSE 81 MG PO TABSIndications:Othe r specified prophylactic or treatment measure 1 TABLET DAILY 30 Tab 11 05/19/2013 Active Blood Glucose Monitoring Suppl (ONETOUCH VERIO) w/Device KITIndications:[place] corwin glucose Use up to 4 times [...] 75 MG Oral Tablet (pLAVix)Indications: 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) [...] as of this encounter (statuses as of 06/19/2023) Active Problems Problem Noted Date Diagnosed Date Cardiac asthma 09/19/2022 Diabetes mellitus 09/01/2022 Dyslipidemia, goal LDL below 70 09/01/2022 Renal osteodystrophy 09/01/2022 Multiple thyroid nodules 09/01/2022 Vitreous hemorrhage of right eye 09/01/2022 History of amputation of hallux 09/01/2022 Chronic kidney disease, stage 4 (severe) 022 Secondary hyperparathyroidism of renal origin Atherosclerosis of [place] ar teries of the extremities with ulceration [...] bilateral 05/28/2020 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[place] coronary artery without angina pectoris 05/28/2020 Diabetes [...] as of this encounter (statuses as of 06/19/2023) Resolved Problems Problem Noted Date Diagnosed Date [...] as of this encounter (statuses as of 06/19/2023) Immunizations Name Administration Dates Next Due COVID-19 Whole Virus, Rollins Vac, 2-Dose Series ([employer] 06/10/2021,11/08/2020,10/08/2020 Pneumococcal Polysaccharide PPV23 (Pneumovax) 05/19/2013 SEASONAL [...] or making decisions? 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 Blood Pressure Goal: 140/90 mmHg Type of Alert: Yellow Current Hypertension Medications: Spironolactone 25 mg 1/2 tab daily amlodpine 10 mg daily Furosemide 40 mg BID Terazosin 2 mg 2 cap daily Lisinopril 40 mg daily Carvedilol 25 mg 1.5 tabs BID INCREASE: Hydralazine 75 mg TID Previous antihypertensive use: n/a Experiencing symptoms related to elevated BP: No BP Readings from Last 3 Encounters: 05/06/23 163/77 05/04/23 159/72 04/20/23 110/58 Pulse Readings from Last 3 Encounters: 05/06/23 73 05/04/23 61 04/20/23 63 Recent Labs Units 05/04/23 1440 04/09/23 0954 02/24/23 0842 SODIUM - [facility] mmol/L 134* 139 140 POTASSIUM - [facility] mmol/L 4.8 4.1 4.4 CHLORIDE - [facility] mmol/L 102 100 103 CO2 - [facility] mmol/L 20* 22 25 CREATININE - [facility] mg/dL 3.5* 4.0* 3.8* BUN - [facility] mg/dL 47* 55* 54* ASSESSMENT & PLAN: Tried to call patient - no answer. Will try again next week. FOLLOW UP: Return to clinic in 1 weeks Angeles Novak RPh Clinical Pharmacist - Tax Consultant Medication Therapy Management Clinic 06/19/2023, 12:46 PM * Brie Coelho LPN - 06/18/2023 9:12 AM EST Miguel Kunz [id number] Miguel Kunz is currently participating in the [facility] Hypertension Management Program and has alerted for an Average BP over 7 days > 140/90. Parameters are currently set as follows: Average BP over 7 days > 140/90 Singular Systolic BP Reading < 90 or > 180 Singular Diastolic BP Reading <50 or > 120 Patient is not reporting any new symptoms or concerns. The patient does have all his blood pressuremedications and is taking them as prescribed. Please [...] Care Team (Late st Contact Info) Description 06/29/2023 2:40 PM EST Office Visit Family Practice [address] [facility] [place] [address] [place] [address] Kerline Sotelo DO [address] [place] [address] 07/16/2023 2:30 PM EST Imaging Radiology [facility] 132 [facility] [place] [address] 08/26/2023 7:30 AM EST Imaging Vascular Lab, [address] 132 [facility] [place] [address] 08/26/2023 8:30 AM EST Imaging Vascular Lab, [address] [facility] [place] [address] 09/02/2023 2:50 PM EST Office Visit Vascular Surgery, [facility] 132 [place] [address] [facility] MD [address] [facility] [address] 09/24/2023 4:00 PM EST [place] [address] [place] [address] Arabella Motta PAFatimah [address] [place] [address] [place] [address] 10/19/2023 8:30 AM EDT Office Visit Cardiology, [facility] 132 [place] [address] Chele Alvarenga PA-C 132 [facility] [place] [address] 05/05/2024 3:00 PM EDT Office Visit Nephrology, [facility] [address] [place] [address] Kindra Blount MD [address] [place] [address] Scheduled Procedures Name Priority Associated Diagnoses Date/Ti [...] 10/08/2023 04/09/2023, 02/07, 09/01/2022, Additional history exists GFR 11/02/2023 05/04/2023, 03/12, 02/24/2023, Additional history exists DTaP,Tdap,and Td Vaccines (2 [...] this encounter Medical Devices Implanted Type Area Guard Sergeant Device Identifier Shelf Expiration Date Model / Serial / Lot Graft Stent Viab [id number] - [id number] [place]ed:Q[place] : 1 [place] 05/01/2014 [place] [facility] [place]: SFA [employer] 03/09/2017 [id number] / / [id number] Stent Complete Sc 6x60 - [id number] Implanted:Qty : 1 on 07/23/2016 by Erwin O[place] [facility] [place]: Popliteal Artery [employer] : VASCULAR 02/25/2018 [id number] / / [id number] Graft Stent Viab 2oiw1qf - [id number] - [id number] Implanted:Qty : 1 on 01/12/2017 by Erwin Olsen [place] [facility] [place] Right: SFA [employer] 10/01/2019 [id number] 02A / [id number] / Stent Peripheral 7 Diam 150x20 - [id number] Implanted:Qty : 1 on 09/01/2019 by Erwin Olsen [place] [facility] [place]: SFA [employer] : VASCULAR [id number] 01/12/2022 [id number] -020-150 / / [id number] Device Vasc Cls Cadn Mynx6/7fr - [id number] Implanted:Qty : 1 on 02/21/2022 by Erwin Olsen [place] [facility] [place] [employer]ARDI[employer]ULAR [employer]YNAMICS [id number] 01/07/2023 [id number] / / [id number] documented as of this encounter Visit Diagnoses [...] the patient have Health Care Power of Weeder Thinner? No Care Teams Meat Cutter Apprentice Relationship Specialty Start Date End Date Kerline Sotelo DO [address] [place] [address] PCP - General Family Medicine 03/29/23 documented as of this encounter
--- OUTSIDE RECORDS SUMMARY | 2023-10-21 00:25 | External Medical Summary | Summary of Care ---
Author Name Unknown Organization [facility] Address [address] [place] [address] Phone [phone] Care Team Providers Care Project Production Engineer Name Role Phone MarleneKerline chinchilla Ludy CASTELLANO Primary Care Provider [phone] Reason for Visit * Reason Onset Date Comments Home Monitoring Alarm 07/08/2023 Encounter Details Date Type Department Care Team (Late st Contact Info) Description 07/08/2023 Home Monitoring Care Coordination [address] [place] [address] Brie Coelho LPN HTN, goal below 140/90* Allergies No known active allergiesdocumented as of this encounter (statuses as of 07/08/2023) Medications Medication Sig Dispensed Refills Start Date End Date Status ASPIRIN LOW DOSE 81 MG PO TABSIndications:Othe r specified prophylactic or treatment measure 1 TABLET DAILY 30 Tab 11 05/19/2013 Active Blood Glucose Monitoring Suppl (ONETOUCH VERIO) w/Device KITIndications:[place] corwin glucose Use up to 4 [...] 75 MG Oral Tablet (pLAVix)Indications: 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) [...] as of this encounter (statuses as of 07/08/2023) Active Problems Problem Noted Date Diagnosed Date Cardiac asthma 09/19/2022 Diabetes mellitus 09/01/2022 Dyslipidemia, goal LDL below 70 09/01/2022 Renal osteodystrophy 09/01/2022 Multiple thyroid nodules 09/01/2022 Vitreous hemorrhage of right eye 09/01/2022 History of amputation of hallux 09/01/2022 Chronic kidney disease, stage 4 (severe) 022 Secondary hyperparathyroidism of renal origin Atherosclerosis of [place] ar teries of the extremities with ulceration [...] bilateral 05/28/2020 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[place] coronary artery without angina pectoris 05/28/2020 Diabetes [...] as of this encounter (statuses as of 07/08/2023) Resolved Problems Problem Noted Date Diagnosed Date [...] as of this encounter (statuses as of 07/08/2023) Immunizations Name Administration Dates Next Due COVID-19 [...] Progress Notes * Brie Coelho LPN - 07/08/2023 3:51 PM EST Miguel Kunz [id number] Miguel Kunz is currently participating in the [...] 07/09/2023 9:00 AM EST Office Visit Podiatry [facility] [address] [place] [address] Angeles Arciniega DPM [address] [place] [address] 07/16/2023 2:30 PM EST Imaging Radiology [facility] [address] [place] [address] 08/26/2023 7:30 AM EST Imaging Vascular Lab, [facility] 2nd [facility] [place] [address] [facility] [place] [address] 08/26/2023 8:30 AM EST Imaging Vascular Lab, [facility] 2nd [facility], [address] [place] [address] 09/02/2023 2:50 PM EST Office Visit Vascular Surgery, [facility] [address] [facility] [place] [address] Erwin Olsen MD [address] [place] [address] 09/24/2023 4:00 PM EST Office Visit Dermatology[address] [address] Arabella Motta PA-C [address] [place] [address] [place] [address] 10/19/2023 8:30 AM EDT Office Visit Cardiology, [facility] 132 [facility] [place] [address] hCele Alvarenga PAHeraclioC 132 [facility] [place] [address] Scheduled Procedures Name Priority Associated Diagnoses Date/Ti [...] this encounter Medical Devices Implanted Type Area Sports Medicine Masseur Device Identifier Shelf Expiration Date Model / Serial / Lot Graft Stent Viab [id number] - [id number] Implanted:Qty : 1 on 05/01/2014 at [place] [facility] [place] Left: SFA [employer] 03/09/2017 [id number] 2 / / [id number] Stent Complete Ri 6x60 - [id number] Implanted:Qty : 1 on 07/23/2016 by Erwin Olsen MD at [place] [facility] Left: Popliteal Artery [employer] : VASCULAR 02/25/2018 [id number] / / [id number] Graft Stent Viab 9ctp9ir - [id number] - [id number] Implanted:Qty : 1 on 01/12/2017 by Erwin Olsen MD at [place] [facility] Right: SFA [employer] 10/01/2019 [id number] 02A / [id number] / Stent Peripheral 7 Diam 150x20 - [id number] Implanted:Qty : 1 on 09/01/2019 by Erwin Olsen MD at [place] [facility] Left: SFA [employer] : VASCULAR [id number] 01/12/2022 [id number] -020-150 / / [id number] Device Vasc Cls Cadn Mynx6/7fr - [id number] Implanted:Qty : 1 on 02/21/2022 by Erwin Olsen MD at [place] [facility] CARDIOVASCULAR DYNAMICS [id number] 01/07/2023 [id number] / / [id number] documented as of this encounter Visit Diagnoses [...] Code 02/21/2022 10:53 AM 02/21/2022 5:40 PM Thi s order reflects the patients wishes and were [...] the patient have Health Care Power of Group Home Paraprofessional? No Care Teams Project Production Engineer Relationship Specialty Start Date End Date Kerline Sotelo DO [address] [facility] [place] [address] PCP - General Family Medicine 03/29/23 documented as of this encounter
--- OUTSIDE RECORDS SUMMARY | 2023-10-21 00:25 | External Medical Summary | Summary of Care ---
Author Name Unknown Organization [facility] Address [address] [place] [address] Phone [phone] Care Team Providers Care Retail Sales Merchandiser Name Role Phone MarleneKerline chinchilla Ludy CASTELLANO Primary Care Provider + [phone] Reason for Visit * Reason Onset Date Comments Other 06/24/2023 Encounter Details Date Type Department Care Team ([facility] Contact Info) Description 06/24/2023 Telephone Pharmacy Call Center [address] [place] [address] Error, Created In, NA/[facility] [place] Other Allergies No known active allergiesdocumented as of this encounter (statuses as of 06/24/2023) Medications Medication Sig Dispensed Refills Start Date End Date Status ASPIRIN LOW DOSE 81 MG PO TABSIndications:Othe r specified prophylactic or treatment measure 1 TABLET DAILY 30 Tab 11 05/19/2013 Active Blood Glucose Monitoring Suppl (ONETOUCH VERIO) w/Device KITIndications:[place]win glucose Use up to 4 times [...] 75 MG Oral Tablet (pLAVix)Indications: 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) [...] as of this encounter (statuses as of 06/24/2023) Active Problems Problem Noted Date Diagnosed Date Cardiac asthma 09/19/2022 Diabetes mellitus 09/01/2022 Dyslipidemia, goal LDL below 70 09/01/2022 Renal osteodystrophy 09/01/2022 Multiple thyroid nodules 09/01/2022 Vitreous hemorrhage of right eye 09/01/2022 History of amputation of hallux 09/01/2022 Chronic kidney disease, stage 4 (severe) 022 Secondary hyperparathyroidism of renal origin Atherosclerosis of [place] ar teries of the extremities with ulceration [...] bilateral 05/28/2020 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[place] coronary artery without angina pectoris 05/28/2020 Diabetes [...] as of this encounter (statuses as of 06/24/2023) Resolved Problems Problem Noted Date Diagnosed Date [...] as of this encounter (statuses as of 06/24/2023) Immunizations Name Administration Dates Next Due COVID-19 Whole Virus, Rollins Vac, 2-Dose Series ([employer]) 06/10/2021,11/08/2020,10/08/2020 Pneumococcal Polysaccharide PPV23 (Pneumovax) 05/19/2013 SEASONAL [...] encounter Miscellaneous Notes * Telephone Encounter - Cathy Hidalgo PHARM Tech - 06/24/2023 9:21 AM EST Pt calling in states he received call from this line do not show he is mtm nor a new referral documented in this encounter Plan of Treatment Upcoming Encounters Date Type Department Care Team (Late st Contact Info) Description 06/29/2023 2:40 PM EST Office Visit Family Practice [address], [place] [address] [place] [address] Kerline Sotelo DO [address] [place] [address] 07/16/2023 2:30 PM EST Imaging Radiology [address] [place] [address] 08/26/2023 7:30 AM EST Imaging Vascular Lab, [facility] 2nd [facility], [place] [facility] [address] 08/26/2023 8:30 AM EST Imaging Vascular Lab, [facility] 2nd [facility] [address] 09/02/2023 2:50 PM EST Office Visit Vascular Surgery, [address] [place] [address] Erwin Olsen MD [address] [place] [address] 09/24/2023 4:00 PM EST Office Visit Dermatology, [place] [address] [facility], [place] [address] Arabella Motta PA-C [address] [place] [address] [place] [address] 10/19/2023 8:30 AM EDT Office Visit Cardiology, [facility] [address] [place] [address] Chele Alvarenga PA-C [address] [place] [address] 05/05/2024 3:00 PM EDT Office Visit Nephrology, [facility] [address] [place] [address] Kindra Blount MD [address] [place] [address] Scheduled Procedures Name Priority Associated Diagnoses Date/Ti [...] this encounter Medical Devices Implanted Type Area Rn Urology Device Identifier Shelf Expiration Date Model / Serial / Lot Graft Stent Viab [id number] - [id number] [place]planted:[place] : 1 on 05/01/2014 [place] [facility] [facility] [place] SFA [employer] 03/09/2017 [id number] / / [id number] Stent Complete [place] 6x60 - [id number] Implanted:Qty : 1 on 07/23/2016 by Erwin Olsen [place] [facility] [place]: Popliteal Artery [employer] : VASCULAR 02/25/2018 [id number] / / [id number] Graft Stent Viab 7wjm1hw - [id number] - [id number] Implanted:Qty : 1 on 01/12/2017 by Erwin Olsen [place] [facility] [place]: SFA [employer] 10/01/2019 [id number] 02A / [id number] / Stent Peripheral 7 Diam 150x20 - [id number] Implanted:Qty : 1 on 09/01/2019 by Erwin Olsen MD [place] [facility] [place]: SFA [employer] : VASCULAR [id number] 01/12/2022 [id number] -020-150 / / [id number] Device Vas Cls Cadn Mynx6/7fr - [id number] Implanted:Qty : 1 on 02/21/2022 by Erwin Olsen [place] [facility] [place] CARDIOVASCULAR DYNAMICS [id number] 01/07/2023 [id number] / / [id number] documented as of this encounter Advance Directives [...] the patient have Health Care Power of Coding Coordinator? No Care Teams Retail Sales Merchandiser Relationship Specialty Start Date End Date Kerline Sotelo DO [address] [place] [address] PCP - General Family Medicine 03/29/23 documented as of this encounter
--- OUTSIDE RECORDS SUMMARY | 2023-10-21 00:25 | External Medical Summary ---
Author Name Unknown Address Unknown Organization K01:[facility] - [address] [place] [id number] Laboratory Report Ordering Provider Test Date Status AMANDA DIAMOND 07/01/2023 13:03:22 Final Observation Date Value Abnormality Reference (Units ) Status Phosphate 07/01/2023 13:03:22 5.2 Above high normal 2. 5-4.8 (mg/dL) Final Performing Location [facility] - [address] [place] [id number]
--- OUTSIDE RECORDS SUMMARY | 2023-10-21 00:25 | External Medical Summary | Summary of Care ---
Author Name Unknown Organization [facility] Address [address] [place] [address] Phone [phone] Care Team Providers Care Punch Press Feeder Name Role Phone MarleneKerline chinchilla Ludy CASTELLANO Primary Care Provider [phone] Reason for Visit * Reason Onset Date Comments Home Monitoring Alarm 06/18/2023 Encounter Details Date Type Department Care Team (Late st Contact Info) Description 06/18/2023 Home Monitoring Care Coordination [address] [place] [address] Brie Coelho LPN HTN, goal below 140/90* Allergies No known active allergiesdocumented as of this encounter (statuses as of 06/19/2023) Medications Medication Sig Dispensed Refills Start Date End Date Status ASPIRIN LOW DOSE 81 MG PO TABSIndications:Othe r specified prophylactic or treatment measure 1 TABLET DAILY 30 Tab 11 05/19/2013 Active Blood Glucose Monitoring Suppl (ONETOUCH VERIO) w/Device KITIndications:[place] corwin glucose Use up to 4 times [...] 75 MG Oral Tablet (pLAVix)Indications: 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) [...] Secondary hyperparathyroidism of renal origin Atherosclerosis of [place] ar teries of the extremities with ulceration [...] bilateral 05/28/2020 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[place] coronary artery without angina pectoris 05/28/2020 Diabetes [...] COVID-19 Whole Virus, Rollins Vac, 2-Dose Series ([employer]) 06/10/2021,11/08/2020,10/08/2020 Pneumococcal Polysaccharide PPV23 (Pneumovax) 05/19/2013 SEASONAL [...] Progress Notes * Brie Coelho LPN - 06/18/2023 9:12 AM EST Miguel Recinos Pina [id number] Miguel E Pina is currently participating in the CC365 [...] PM EST Office Visit Family Practice [facility], [place] [address] [place] [address] Kerline Sotelo DO 293 [facility], [place] [address] 07/16/2023 2:30 PM EST Imaging Radiology [facility] [address] [place] [address] 08/26/2023 7:30 AM EST Imaging Vascular Lab, [facility] 2nd [facility] 132 [facility] [address] 08/26/2023 8:30 AM EST Imaging Vascular Lab, [address] 132 [facility] [place] [address] 09/02/2023 2:50 PM EST Office Visit Vascular Surgery, [facility] 132 [facility] [place] [address] Erwin Olsen MD [address] [place] [facility] [place] [address] 09/24/2023 4:00 PM EST Office Visit Dermatology[address] [address] Arabella Motta PA-C [address] [place] [address] [place] [address] 10/19/2023 8:30 AM EDT Office Visit Cardiology, [facility] [address] Chele Alvarenga PAHeraclioC 132 [facility] [place] [address] Scheduled Procedures Name Priority Associated Diagnoses Date/Ti [...] this encounter Medical Devices Implanted Type Area Ship'S Engineer Device Identifier Shelf Expiration Date Model / Serial / Lot Graft Stent Viab 2hcx1im - [id number] Implanted:Qty : 1 on 05/01/[address] [facility] [place] Left: SFA [employer] 03/09/2017 [id number] / / [id number] Stent Complete Sc 6x60 - [id number] Implanted:Qty : 1 on 07/23/2016 by Erwin Olsen MD [place] [facility] [place] Left: Popliteal Artery [employer] : VASCULAR 02/25/2018 [id number] / / [id number] Graft Stent Viab 8uph1ha - [id number] - [id number] Implanted:Qty : 1 on 01/12/2017 by Erwin Olsen MD [place] [facility] [place] Right: SFA [employer] 10/01/2019 [id number] 02A / [id number] / Stent Peripheral 7 Diam 150x20 - [id number] Implanted:Qty : 1 on 09/01/2019 by Erwin Olsen MD [place] [facility] [place] Left: SFA [employer] : VASCULAR [id number] 01/12/2022 [id number] -020-150 / / [id number] Device Vasc Cls Cadn Mynx6/7fr - [id number] Implanted:Qty : 1 on 02/21/2022 by Erwin Olsen MD at [place] [facility] [place] CARDIOVASCULAR DYNAMICS [id number] 01/07/2023 [id number] / / [id number] documented as of this encounter Visit Diagnoses [...] the patient have Health Care Power of Chief Of Service? No Care Teams Punch Press Feeder Relationship Specialty Start Date End Date Kerline Sotelo DO [address] [facility] [place] [address] PCP - General Family Medicine 03/29/23 documented as of this encounter
--- OUTSIDE RECORDS SUMMARY | 2023-10-21 00:25 | External Medical Summary | Summary of Care ---
Author Name Unknown Organization [facility] Address [address] [place] [address] Phone [phone] Care Team Providers Care Title Manager Name Role Phone MarleneKerline chinchilla Ludy CASTELLANO Primary Care Provider [phone] Reason for Visit * Reason Onset Date Comments Appointment 06/23/2023 Encounter Details Date Type Department Care Team ([facility] st Contact Info) Description 06/18/2023 Telephone [place] [address] [place] [address] Kindra Blount MD [address] [place] [address] Appointment Allergies No known active allergiesdocumented as of this encounter (statuses as of 06/23/2023) Medications Medication Sig Dispensed Refills Start Date End Date Status ASPIRIN LOW DOSE 81 MG PO TABSIndications:Othe r specified prophylactic or treatment measure 1 TABLET DAILY 30 Tab 11 05/19/2013 Active Blood Glucose Monitoring Suppl (ONETOUCH VERIO) w/Device KITIndications:[place] corwin glucose Use up to 4 times [...] 75 MG Oral Tablet (pLAVix)Indications: 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) [...] as of this encounter (statuses as of 06/23/2023) Active Problems Problem Noted Date Diagnosed Date Cardiac asthma 09/19/2022 Diabetes mellitus 09/01/2022 Dyslipidemia, goal LDL below 70 09/01/2022 Renal osteodystrophy 09/01/2022 Multiple thyroid nodules 09/01/2022 Vitreous hemorrhage of right eye 09/01/2022 History of amputation of hallux 09/01/2022 Chronic kidney disease, stage 4 (severe) 022 Secondary hyperparathyroidism of renal origin Atherosclerosis of [place] ar teries of the extremities with ulceration [...] bilateral 05/28/2020 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[place] coronary artery without angina pectoris 05/28/2020 Diabetes [...] as of this encounter (statuses as of 06/23/2023) Resolved Problems Problem Noted Date Diagnosed Date [...] as of this encounter (statuses as of 06/23/2023) Immunizations Name Administration Dates Next Due COVID-19 Whole Virus, Rollins Vac, 2-Dose Series ([employer]) 06/10/2021,11/08/2020,10/08/2020 Pneumococcal Polysaccharide PPV23 (Pneumovax) 05/19/2013 SEASONAL [...] encounter Miscellaneous Notes * Telephone Encounter - Scarlett Donis OSA - 06/23/2023 4:07 PM EST [facility] looking for [facility] New/return and the only one I was seeing was for 07/30 at 2p. Looks liek it will open 07/16 if there is a way to get him please place him on or I can get him on later * Telephone Encounter - Lynette Osborn OSA - 06/18/2023 12:56 PM EST 06/18 called patient, left message. Trying to get patient to schedule a follow-up in July with Dr. Blount. 3 month follow-up so use the first available new/return slot. My G message being sent out as well. documented in this encounter Plan of Treatment Upcoming Encounters Date Type Department Care Team (Late st Contact Info) Description 06/29/2023 2:40 PM EST Office Visit Family Practice [address] [facility] [place] 293 [place] [address] Kerline Sotelo DO 293 [facility], [place] [address] 07/16/2023 2:30 PM EST Imaging Radiology [facility] [place] [address] 08/26/2023 7:30 AM EST Imaging Vascular Lab, [facility] 2nd [facility], [place] 132 [facility] [place] [address] 08/26/2023 8:30 AM EST Imaging Vascular Lab, [facility] 2nd [facility], [place] 132 [facility] [place] [address] 09/02/2023 2:50 PM EST Office Visit Vascular Surgery, [facility] 132 [facility] [address] Erwin Olsen MD [address] [place] [address] 09/24/2023 4:00 PM EST Office Visit Dermatology[address] [address] Arabella Motta PA-C [address] [place] [address] [place] [address] 10/19/2023 8:30 AM EDT Office Visit Cardiology, [facility] 132 [facility] [place] [address] Chele Alvarenga PA-C 132 [facility] [place] [address] 05/05/2024 3:00 PM EDT Office Visit Nephrology, [facility] [address] [place] [address] Kindra Blount MD [address] [place] [address] Scheduled Procedures Name Priority Associated Diagnoses Date/Ti [...] this encounter Medical Devices Implanted Type Area Court Security Officer Device Identifier Shelf Expiration Date Model / Serial / Lot Graft Stent Viab [id number] - [id number] Implanted:Qty : 1 on 05/01/2014 at [place] [facility] [place] Left: SFA [employer] 03/09/2017 [id number] / / [id number] Stent Complete Sc 6x60 - [id number] Implanted:Qty : 1 on 07/23/2016 by Erwin Olsen MD at OR [facility] [place] Left: Popliteal Artery [employer] : VASCULAR 02/25/2018 [id number] / / [id number] Graft Stent Viab 8cmg0ca - [id number] - [id number] Implanted:Qty : 1 on 01/12/2017 by Erwin Olsen MD at OR [facility] [place] Right: SFA [employer] 10/01/2019 [id number] 02A / [id number] / Stent Peripheral 7 Diam 150x20 - [id number] Implanted:Qty : 1 on 09/01/2019 by Erwin Olsen MD at [place] [facility] [place] Left: SFA [employer] : VASCULAR [id number] 01/12/2022 [id number] -020-150 / / [id number] Device [facility] Cls Cadn Mynx6/7fr - [id number] Implanted:Qty : 1 on 02/21/2022 by Erwin Olsen MD at OR [facility] [place] CARDIOVASCULAR DYNAMICS [id number] 01/07/2023 [id number] / / [id number] documented as of this encounter Advance Directives [...] the patient have Health Care Power of Nuclear Powerplant Supervisor? No Care Teams Title Manager Relationship Specialty Start Date End Date Kerline Sotelo DO [address] [place] [facility] [place] [address] PCP - General Family Medicine 03/29/23 documented as of this encounter
--- OUTSIDE RECORDS SUMMARY | 2023-10-21 00:25 | External Medical Summary ---
Author Name Unknown Address Unknown Organization K01:[facility] [address] [place] [address] Laboratory Report Ordering Provider Test Date Status AMANDA DIAMOND 07/01/2023 13:03:22 Final Observation Date Value Abnormality Reference (Units ) Status Albumin 07/01/2023 13:03:22 4.4 3.8-5.0 (g /dL) Final Performing Location [facility] - [address] [place] [address]
--- OUTSIDE RECORDS SUMMARY | 2023-10-21 00:25 | External Medical Summary | Summary of Care ---
Author Name Unknown Organization [facility] Address [address] [place] [address] Phone [phone] Care Team Providers Care Loan Collector Name Role Phone MarleneKerline chinchilla Ludy CASTELLANO Primary Care Provider [phone] Reason for Visit * Reason Onset Date Comments Appointment 06/18/2023 Encounter Details Date Type Department Care Team ([facility] st Contact Info) Description 06/18/2023 Telephone NephrologyRos[place] 200 [place] [address] Kindra Blount MD 200 [place] [address] Appointment Allergies No known active allergiesdocumented as of this encounter (statuses as of 06/18/2023) Medications Medication Sig Dispensed Refills Start Date End Date Status ASPIRIN LOW DOSE 81 MG PO TABSIndications:Othe r specified prophylactic or treatment measure 1 TABLET DAILY 30 Tab 11 05/19/2013 Active Blood Glucose Monitoring Suppl (ONETOUCH VERIO) w/Device KITIndications:[place]win glucose Use up to 4 times [...] 75 MG Oral Tablet (pLAVix)Indications: 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) [...] as of this encounter (statuses as of 06/18/2023) Active Problems Problem Noted Date Diagnosed Date Cardiac asthma 09/19/2022 Diabetes mellitus 09/01/2022 Dyslipidemia, goal LDL below 70 09/01/2022 Renal osteodystrophy 09/01/2022 Multiple thyroid nodules 09/01/2022 Vitreous hemorrhage of right eye 09/01/2022 History of amputation of hallux 09/01/2022 Chronic kidney disease, stage 4 (severe) 022 Secondary hyperparathyroidism of renal origin Atherosclerosis of [place] ar teries of the extremities with ulceration [...] bilateral 05/28/2020 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[place] coronary artery without angina pectoris 05/28/2020 Diabetes [...] as of this encounter (statuses as of 06/18/2023) Resolved Problems Problem Noted Date Diagnosed Date [...] as of this encounter (statuses as of 06/18/2023) Immunizations Name Administration Dates Next Due COVID-19 Whole Virus, Rollins Vac, 2-Dose Series ([employer]) 06/10/2021,11/08/2020,10/08/2020 Pneumococcal Polysaccharide PPV23 (Pneumovax) 05/19/2013 SEASONAL [...] encounter Miscellaneous Notes * Telephone Encounter - Lynette Osborn OSA [...] EST Office Visit Family Practice [address], [place] [address] [place] [address] Kerline Sotelo DO [address] [place] [address] 07/16/2023 2:30 PM EST Imaging Radiology [facility] 132 [facility] [address] 08/26/2023 7:30 AM EST Imaging Vascular Lab, [facility] [address] [facility] 132 [facility] [place] [address] 08/26/2023 8:30 AM EST Imaging Vascular Lab, [facility] 2nd [facility] [place] 132 [facility] [place] [address] 09/02/2023 2:50 PM EST Office Visit Vascular Surgery, [address] [place] [address] Erwin Olsen MD [address] [facility] [place] [address] 09/24/2023 4:00 PM EST [place] [address] [place] [address] Arabella Motta PA-C [address] [place] [address] [place] [address] 10/19/2023 8:30 AM EDT Office Visit Cardiology, [facility] [address] [facility] [place] [address] Chele Alvarenga PA-C [address] [place] [address] [address] Scheduled Procedures Name Priority Associated Diagnoses Date/Ti [...] this encounter Medical Devices Implanted Type Area Beauty Counselor Device Identifier Shelf Expiration Date Model / Serial / Lot Graft Stent Viab 2thh4vg - [id number] Implanted:Qty : 1 on 05/01/2014 [place] [facility] [place] SFA [employer] 03/09/2017 [id number] / / [id number] Stent Complete [place] 6x60 - [id number] Implanted:Qty : 1 on 07/23/2016 by Erwin Olsen MD [place] [facility] [place]: Popliteal Artery [employer] : VASCULAR 02/25/2018 [id number] / / [id number] Graft Stent Viab 2aqd8ne - [id number] - [id number] Implanted:Qty : 1 on 01/12/2017 by Erwin Olsen MD [place] [facility] [place] Right: SFA [employer] 10/01/2019 [id number] 02A / [id number] / Stent Peripheral 7 Diam 150x20 - [id number] Implanted:Qty : 1 on 09/01/2019 by Erwin Olsen MD [place] [facility] [place]: SFA [employer] : VASCULAR [id number] 01/12/2022 [id number] -020-150 / / [id number] Device Vas Cls Cadn Mynx6/7fr - [id number] Implanted:Qty : 1 on 02/21/2022 by Erwin Olsen MD at [facility] C[facility]IOVASCULAR [facility]YNAM[facility] [id number] 01/07/2023 [id number] / / [id number] documented as of this encounter Advance Directives [...] the patient have Health Care Power of Agronomy Supervisor? No Care Teams Loan Collector Relationship Specialty Start Date End Date Kerline Sotelo DO 293 [facility] [place] [address] PCP - General Family Medicine 03/29/23 documented as of this encounter
--- OUTSIDE RECORDS SUMMARY | 2023-10-21 00:25 | External Medical Summary ---
Author Name Unknown Address Unknown Organization K01:LABORATORY [facility] [place] - [address] [place] [address] Laboratory Report Ordering Provider Test Date Status AMANDA DIAMOND 07/01/2023 13:03:22 Final Observation Date Value Abnormality Reference (Units ) Status Hemoglobin 07/01/2023 13:03:22 10.7 Below low normal 14 .0-16.8 (g/dL) Final Performing Location [facility] - [address] [place] [address]
--- OUTSIDE RECORDS SUMMARY | 2023-10-21 00:25 | External Medical Summary | Summary of Care ---
Author Name Unknown Organization [facility] Address [address] [place] [address] Phone [phone] Care Team Providers Care Associate Account Director Name Role Phone Kerline Sotelo Primary Care Provider [phone] Reason for Visit * Reason Comments Outpatient Testing Encounter Details Date Type Department Care Team (Late st Contact Info) Description 07/01/2023 1:10 PM EST Laboratory Laboratory, [place] [address] [place] [address] [place] [address] [place] [address] Chronic kidney disease, stage 4 (severe) ([facility]) Allergies No known active allergiesdocumented as of this encounter (statuses as of 07/01/2023) Medications Medication Sig Dispensed Refills Start Date End Date Status ASPIRIN LOW DOSE 81 MG PO TABSIndications:Othe r specified prophylactic or treatment measure 1 TABLET DAILY 30 Tab 11 05/19/2013 Active Blood Glucose Monitoring Suppl (ONETOUCH VERIO) w/Device KITIndications:Harrison corwin glucose Use up to 4 times [...] hemoglobin A1c goal of less than 7.0% ([facility]) USE WITH LANTUS ONCE DAILY OR DIRECTED 300 Each 3 11/20/2022 4 Active Lantus SoloStar 100 UNIT/ML Subcutaneous Solution Pen-injectorIndicati ons:Type 2 diabetes mellitus with hemoglobin A1c goal of less than 7.0% ([facility]) INJECT 18 UNITS UNDER THE SKIN ONCE [...] 75 MG Oral Tablet (pLAVix)Indications: 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) [...] as of this encounter (statuses as of 07/01/2023) Active Problems Problem Noted Date Diagnosed Date Cardiac asthma 09/19/2022 Diabetes mellitus 09/01/2022 Dyslipidemia, goal LDL below 70 09/01/2022 Renal osteodystrophy 09/01/2022 Multiple thyroid nodules 09/01/2022 Vitreous hemorrhage of right eye 09/01/2022 History of amputation of hallux 09/01/2022 Chronic kidney disease, stage 4 (severe) 022 Secondary hyperparathyroidism of renal origin Atherosclerosis of [place] ar teries of the extremities with ulceration [...] bilateral 05/28/2020 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[place] coronary artery without angina pectoris 05/28/2020 Diabetes [...] as of this encounter (statuses as of 07/01/2023) Resolved Problems Problem Noted Date Diagnosed Date [...] as of this encounter (statuses as of 07/01/2023) Immunizations Name Administration Dates Next Due COVID-19 Whole Virus, Rollins Vac, 2-Dose Series (Shoptimise) 06/10/2021,11/08/2020,10/08/2020 Pneumococcal Polysaccharide PPV23 (Pneumovax) 05/19/2013 SEASONAL [...] Care Team (Late st Contact Info) Description 07/07/2023 2:40 PM EST Office Visit Nephrology, [facility] [address] [place] [address] Kindra Blount MD [address] [facility] [place] [address] 07/09/2023 9:00 AM EST Office Visit Podiatry [facility] [address] [place] [address] Angeles Arciniega DPM [address] [place] [address] 07/16/2023 2:30 PM EST Imaging Radiology [facility] [address] [place] [address] 08/26/2023 7:30 AM EST Imaging Vascular Lab, [facility] 2nd [facility] [address] [place] [address] 08/26/2023 8:30 AM EST Imaging Vascular Lab, [facility] [address] [facility], [place] [address] [place] [address] 09/02/2023 2:50 PM EST Office Visit Vascular Surgery, [facility] [address] [place] [address] Erwin Olsen MD [address] [facility] [place] [address] 09/24/2023 4:00 PM EST Office Visit Dermatology, [place] [address] [place] [address] Arabella Motta PA-C [address] [place] [address] [place] [address] 10/19/2023 8:30 AM EDT Office Visit Cardiology, [facility] [address] [place] [address] Chele Alvarenga PA-C [address] [place] [address] Pending Results Name Type Priority Associated Diagnoses Date /Time BASIC METABOLIC PANEL Lab Routine Chronic kidney disease, stage 4 (severe) (HCC) 07/01/2023 1:03 PM EST PHOSPHORUS Lab Routine Chronic kidney disease, stage 4 (severe) (HCC) 07/01/2023 1:03 PM EST HGB Lab Routine Chronic kidney disease, stage 4 (severe) (HCC) 07/01/2023 1:03 PM EST ALBUMIN Lab Routine Chronic kidney disease, stage 4 (severe) (HCC) 07/01/2023 1:03 PM EST Scheduled Procedures Name Priority Associated [...] this encounter Medical Devices Implanted Type Area Road Engineer Freight Device Identifier Shelf Expiration Date Model / Serial / Lot Graft Stent Viab [id number] - [id number] Implanted:Qty : 1 on 05/01/2014 at OR [facility] Left: SFA [employer] 03/09/2017 [id number] / / [id number] Stent Complete [place] 6x60 - [id number] Implanted:Qty : 1 on 07/23/2016 by Erwin Olsen MD at OR [facility] Left: Popliteal Artery [employer] : VASCULAR 02/25/2018 [id number] / / [id number] Graft Stent Viab [id number] - [id number] - [id number] Implanted:Qty : 1 on 01/12/2017 by Erwin Olsen MD at OR [facility] Right: SFA [employer] 10/01/2019 [id number] / [id number] / Stent Peripheral 7 Diam 150x20 - [id number] Implanted:Qty : 1 on 09/01/2019 by Erwin Olsen MD at OR [facility] Left: SFA [employer] : VASCULAR [id number] 01/12/2022 [id number] / / [id number] Device Vasc Cls Cadn Mynx6/7fr - [id number] Implanted:Qty : 1 on 02/21/2022 by Erwin Olsen MD at OR [facility] CARDIOVASCULAR DYNAMICS [id number] 01/07/2023 [id number] / / [id number] documented as of this encounter Visit Diagnoses [...] the patient have Health Care Power of Pack Out Operator? No Care Teams Associate Account Director Relationship Specialty Start Date End Date Kerline Sotelo DO [address] [place] [address] PCP - General Family Medicine 03/29/23 documented as of this encounter
--- OUTSIDE RECORDS SUMMARY | 2023-10-21 00:25 | External Medical Summary ---
Author Name Unknown Address Unknown Organization K01:[facility] [address] [place] [address] Laboratory Report Ordering Provider Test Date Status AMANDA DIAMOND 07/01/2023 13:03:22 Final Observation Date Value Abnormality Reference (Units ) Status BUN 07/01/2023 13:03:22 57 Above high normal 6-20 (mg/dL) Final Creatinine 07/01/2023 13:03:22 4.1 Above high normal 0.6-1.2 (mg/dL) Final Glomerular filtration rate/1.73 sq M.predicted [Volume Rate/Area] in Serum, Plasma or Blood by Creatinine-based formula (CKD-EPI) 07/01/2023 13:03:22 15 Below low normal >=60 (mL/min) Final eGFR is calculated based on the CKD-EPI 2020 equation SODIUM 07/01/2023 13:03:22 136 135-146 (m mol/L) Final Potassium 07/01/2023 13:03:22 5.1 3.5-5.1 (m mol/L) Final Cl 07/01/2023 13:03:22 101 98-107 (mm ol/L) Final CO2 07/01/2023 13:03:22 23 22-32 (mmo l/L) Final Anion gap 07/01/2023 13:03:22 12 7-15 (mmol /L) Final Glucose 07/01/2023 13:03:22 227 Above high normal 70 -120 (mg/dL) Final Calcium 07/01/2023 13:03:22 9.2 8.4-10.2 ( mg/dL) Final Performing Location [facility] [place] [address]
--- OUTSIDE RECORDS SUMMARY | 2023-10-21 00:26 | External Medical Summary | Summary of Care ---
Author Name Unknown Organization [facility] Address [address] [place] [address] Phone [phone] Care Team Providers Care Mechanical Adjuster Name Role Phone Kerline Sotelo Primary Care Provider + [phone] Reason for Visit * Reason Onset Date Comments Referral 06/03/2023 Encounter Details Date Type Department Care Team ([facility] st Contact Info) Description 06/03[facility] [address] [place] [address] Carmelita Mancera, RN [address] [place] [address] Referral Allergies No known active allergiesdocumented as of this encounter (statuses as of 06/03/2023) Medications Medication Sig Dispensed Refills Start Date End Date Status ASPIRIN LOW DOSE 81 MG PO TABSIndications:Othe r specified prophylactic or treatment measure 1 TABLET DAILY 30 Tab 11 05/19/2013 Active Blood Glucose Monitoring Suppl (ONETOUCH VERIO) w/Device KITIndications:Rohwer corwin glucose Use up to 4 times [...] 75 MG Oral Tablet (pLAVix)Indications: 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) [...] as of this encounter (statuses as of 06/03/2023) Active Problems Problem Noted Date Diagnosed Date Cardiac asthma 09/19/2022 Diabetes mellitus 09/01/2022 Dyslipidemia, goal LDL below 70 09/01/2022 Renal osteodystrophy 09/01/2022 Multiple thyroid nodules 09/01/2022 Vitreous hemorrhage of right eye 09/01/2022 History of amputation of hallux 09/01/2022 Chronic kidney disease, stage 4 (severe) 022 Secondary hyperparathyroidism of renal origin Atherosclerosis of [place] ar teries of the extremities with ulceration [...] bilateral 05/28/2020 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[place] coronary artery without angina pectoris 05/28/2020 Diabetes [...] as of this encounter (statuses as of 06/03/2023) Resolved Problems Problem Noted Date Diagnosed Date [...] as of this encounter (statuses as of 06/03/2023) Immunizations Name Administration Dates Next Due COVID-19 Whole Virus, Rollins Vac, 2-Dose Series (Sound Clips) 06/10/2021,11/08/2020,10/08/2020 Pneumococcal Polysaccharide PPV23 (Pneumovax) 05/19/2013 SEASONAL [...] encounter Miscellaneous Notes * Telephone Encounter - Carmelita Mancera RN - 06/03/2023 3:20 PM EDT Call placed to patient to discuss Review Committee outcome. Patient was not available, message left, patient may return call to me or may wait until tomorrow morning and I will call patient tomorrow morning. Carmelita Mancera RN 3:21 PM documented in this encounter Plan of Treatment Upcoming Encounters Date Type Department Care Team (Late st Contact Info) Description 07/06/2023 1:00 PM EST Office Visit Family Practice [address] [place] [address] [place] [address] Kerline Sotelo DO 293 [facility] [place] [address] 07/16/2023 2:30 PM EST Imaging Radiology [facility] 132 [facility] [place] [address] 08/26/2023 7:30 AM EST Imaging Vascular Lab, [facility] 2nd [facility] 132 [facility] [place] [address] 08/26/2023 8:30 AM EST Imaging Vascular Lab, [facility] 2nd [facility] 132 [facility] [place] [address] 09/02/2023 2:50 PM EST Office Visit Vascular Surgery, [facility] 132 [facility] [place] [address] Erwin Olsen MD [address] [facility] [place], [place] [id number] 09/24/2023 4:00 PM EST Office Visit Dermatology[address], [place] [address] Arabella Motta PA-C [address] [place] [address] [place] [address] 10/19/2023 8:30 AM EDT Office Visit Cardiology, [facility] [address] [facility] [place] [address] Chele Alvarenga PA-C [address] [place] [address] [address] Scheduled Procedures Name Priority Associated Diagnoses Date/Ti [...] (2 - Td or Tdap) 11/19/2023 11/18/2013 DIABETES-EYE EXAM 01/08/2024 01/07/2023, , 09/30/2021, Additional history exists Diabetic Foot Exam 01/27/2024 [...] this encounter Medical Devices Implanted Type Area Podiatrist Assistant Device Identifier Shelf Expiration Date Model / Serial / Lot Graft Stent Viab [id number] - [id number] Implanted:Qty : 1 on 05/01/2014 at [place] [facility] Left: SFA [employer] 03/09/2017 [id number] / / [id number] Stent Complete Nv 6x60 - [id number] Implanted:Qty : 1 on 07/23/2016 by Erwin Olsen MD at [place] [facility] Left: Popliteal Artery [employer] : VASCULAR 02/25/2018 [id number] / / [id number] Graft Stent Viab [id number] - [id number] - [id number] Implanted:Qty : 1 on 01/12/2017 by Erwin Olsen MD at [place] [facility] Right: SFA [employer] 10/01/2019 [id number] 02A / [id number] / Stent Peripheral 7 Diam 150x20 - [id number] Implanted:Qty : 1 on 09/01/2019 by Erwin Olsen MD at [place] [facility] Left: SFA [employer] : VASCULAR [id number] 01/12/2022 GML32-17 -020-150 / / [id number] Device [facility] Cls Cadn Mynx6/7fr - [id number] Implanted:Qty : 1 on 02/21/2022 by Erwin Olsen MD at OR [facility] CARDIOVASCULAR DYNAMICS [id number] 01/07/2023 [id number] / / [id number] documented as of this encounter Advance Directives [...] the patient have Health Care Power of Health Support Specialist? No Care Teams Mechanical Adjuster Relationship Specialty Start Date End Date Kerline Sotelo DO [address] [facility] [place] [address] PCP - General Family Medicine 03/29/23 documented as of this encounter
--- OUTSIDE RECORDS SUMMARY | 2023-10-21 00:26 | External Medical Summary | Summary of Care ---
Author Name Unknown Organization [facility] Address [address] [place] [address] Phone [phone] Care Team Providers Care Vp Publisher Development Name Role Phone MarleneKerline chinchilla Ludy CASTELLANO Primary Care Provider [phone] Reason for Visit * Reason Onset Date Comments Home Monitoring Alarm 06/18/2023 Encounter Details Date Type Department Care Team (Late st Contact Info) Description 06/18/2023 Home Monitoring Care Coordination [address] [place] [address] Brie Coelho LPN HTN, goal below 140/90* Allergies No known active allergiesdocumented as of this encounter (statuses as of 06/18/2023) Medications Medication Sig Dispensed Refills Start Date End Date Status ASPIRIN LOW DOSE 81 MG PO TABSIndications:Othe r specified prophylactic or treatment measure 1 TABLET DAILY 30 Tab 11 05/19/2013 Active Blood Glucose Monitoring Suppl (ONETOUCH VERIO) w/Device KITIndications:[place] corwin glucose Use up to 4 times [...] 75 MG Oral Tablet (pLAVix)Indications: 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) [...] Secondary hyperparathyroidism of renal origin Atherosclerosis of [place] ar teries of the extremities with ulceration [...] bilateral 05/28/2020 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[place] coronary artery without angina pectoris 05/28/2020 Diabetes [...] COVID-19 Whole Virus, Rollins Vac, 2-Dose Series (Weave) 06/10/2021,11/08/2020,10/08/2020 Pneumococcal Polysaccharide PPV23 (Pneumovax) 05/19/2013 SEASONAL [...] 06/18/2023 9:12 AM EST Miguel Recinos Pina [phone] Miguel E Pina is currently participating in [...] PM EST Office Visit Family Practice 65 [facility] [place] [address] [place] [address] Kerline Sotelo DO 293 [facility], [place] [address] 07/16/2023 2:30 PM EST Imaging Radiology [facility] [address] [place] [address] 08/26/2023 7:30 AM EST Imaging Vascular Lab, [facility] [address] [facility] [address] 08/26/2023 8:30 AM EST Imaging Vascular Lab, [address] 132 [facility] [place] [address] 09/02/2023 2:50 PM EST Office Visit Vascular Surgery, [facility] 132 [facility] [place] [address] Erwin Olsen MD [address] [place] [facility] [place] [address] 09/24/2023 4:00 PM EST Office Visit Dermat[address] [address] Arabella Motta PA-C [address] [place] [address] [place] [address] 10/19/2023 8:30 AM EDT Office Visit Cardiology, [facility] [address] Chele Alvarenga PAHeraclioC 132 [facility] [place] [address] Scheduled Procedures Name Priority Associated Diagnoses Date/Ti [...] this encounter Medical Devices Implanted Type Area Link And Link Knitting Machine Operator Device Identifier Shelf Expiration Date Model / Serial / Lot Graft Stent Viab [id number] - [id number] Implanted:Qty : 1 on 05/01/2014 at OR [facility] Left: SFA [employer] 03/09/2017 [id number] / / [id number] Stent Complete [place] 6x60 - [id number] Implanted:Qty : 1 on 07/23/2016 by Erwin Olsen MD at OR [facility] Left: Popliteal Artery [employer] : VASCULAR 02/25/2018 [id number] / / [id number] Graft Stent Viab [id number] - [id number] - [id number] Implanted:Qty : 1 on 01/12/2017 by Erwin Olsen MD at OR [facility] Right: SFA [employer] 10/01/2019 [id number] 02A / [id number] / Stent Peripheral 7 Diam 150x20 - [id number] Implanted:Qty : 1 on 09/01/2019 by Erwin Olsen MD at OR [facility] Left: SFA [employer] : VASCULAR [id number] 01/12/2022 [id number] -020-150 / / [id number] Device Vasc Cls Cadn Mynx6/7fr - [id number] Implanted:Qty : 1 on 02/21/2022 by Erwin Olsen MD at OR [facility] CARDIOVASCULAR DYNAMICS [id number] 01/07/2023 [id number] / / [id number] documented as of this encounter Visit Diagnoses [...] the patient have Health Care Power of Casino Floor Supervisor? No Care Teams Vp Publisher Development Relationship Specialty Start Date End Date Kerline Sotelo DO [address] [facility] [place] [address] PCP - General Family Medicine 03/29/23 documented as of this encounter
--- OUTSIDE RECORDS SUMMARY | 2023-10-21 00:26 | External Medical Summary | Summary of Care ---
Author Name Unknown Organization [facility] Address [address] [place] [address] Phone [phone] Care Team Providers Care Combatant Diver Qualified Name Role Phone Kerline Sotelo Primary Care Provider + [phone] Reason for Visit * Reason Onset Date Comments Referral 06/04/2023 Encounter Details Date Type Department Care Team ([facility] st Contact Info) Description [facility] [address] [place] [address] Carmelita Mancera, RN [address] [place] [address] Referral Allergies No known active allergiesdocumented as of this encounter (statuses as of 06/04/2023) Medications Medication Sig Dispensed Refills Start Date End Date Status ASPIRIN LOW DOSE 81 MG PO TABSIndications:Othe r specified prophylactic or treatment measure 1 TABLET DAILY 30 Tab 11 05/19/2013 Active Blood Glucose Monitoring Suppl (ONETOUCH VERIO) w/Device KITIndications:[place] corwin glucose Use up to 4 times [...] 75 MG Oral Tablet (pLAVix)Indications: 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) [...] as of this encounter (statuses as of 06/04/2023) Active Problems Problem Noted Date Diagnosed Date Cardiac asthma 09/19/2022 Diabetes mellitus 09/01/2022 Dyslipidemia, goal LDL below 70 09/01/2022 Renal osteodystrophy 09/01/2022 Multiple thyroid nodules 09/01/2022 Vitreous hemorrhage of right eye 09/01/2022 History of amputation of hallux 09/01/2022 Chronic kidney disease, stage 4 (severe) 022 Secondary hyperparathyroidism of renal origin Atherosclerosis of [place] ar teries of the extremities with ulceration [...] bilateral 05/28/2020 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[place] coronary artery without angina pectoris 05/28/2020 Diabetes [...] as of this encounter (statuses as of 06/04/2023) Resolved Problems Problem Noted Date Diagnosed Date [...] as of this encounter (statuses as of 06/04/2023) Immunizations Name Administration Dates Next Due COVID-19 Whole Virus, Rollins Vac, 2-Dose Series (Innogenetics) 06/10/2021,11/08/2020,10/08/2020 Pneumococcal Polysaccharide PPV23 (Pneumovax) 05/19/2013 SEASONAL [...] Telephone Encounter - Carmelita Mancera RN - 06/04/2023 9:10 AM EDT Call placed to patient regarding outcome of Review Committee, pt is not a transplant candidate at our center due to vascular status making him a high risk candidate. Patient made aware and he verbalized understanding. Carmelita Mancera RN 9:12 AM documented in this encounter Plan of Treatment Upcoming Encounters Date Type Department Care Team (Late st Contact Info) Description 07/06/2023 1:00 PM EST Office Visit Family Practice [address] [place] [address] [place] [address] Kerline Sotelo DO [address] [place] [address] 07/16/2023 2:30 PM EST Imaging Radiology [facility] 132 [facility] [place] [address] 08/26/2023 7:30 AM EST Imaging Vascular Lab, [facility] 2nd [facility] 132 [facility] [place] [address] 08/26/2023 8:30 AM EST Imaging Vascular Lab, [facility] 2nd [facility] [address] [place] [address] 09/02/2023 2:50 PM EST Office Visit Vascular Surgery, [facility] [address] [place] [address] Erwin Olsen MD [address] [facility], [place] [id number] 09/24/2023 4:00 PM EST Office Visit Dermatology, [address] [place] [address] Arabella Motta PA-C [address] [place] [address] [place] [address] 10/19/2023 8:30 AM EDT Office Visit Cardiology, [facility] [address] [place] [address] Chele Alvarenga PA-C [address] [place] [address] Scheduled Procedures Name Priority Associated Diagnoses Date/Ti [...] this encounter Medical Devices Implanted Type Area Coverstitch Machine Operator Device Identifier Shelf Expiration Date Model / Serial / Lot Graft Stent Viab [id number] - [id number] Implanted:Qty : 1 on 05/01/2014 at OR [facility] [place] Left: SFA [employer] 03/09/2017 [id number] / / [id number] Stent Complete Id 6x60 - [id number] Implanted:Qty : 1 on 07/23/2016 by Erwin Olsen MD at OR [facility] [place] Left: Popliteal Artery [employer] : VASCULAR 02/25/2018 [id number] / / [id number] Graft Stent Viab [id number] - [id number] - [id number] Implanted:Qty : 1 on 01/12/2017 by Erwin Olsen MD at OR [facility] [place] Right: SFA [employer] 10/01/2019 [id number] 02A / [id number] / Stent Peripheral 7 Diam 150x20 - [id number] Implanted:Qty : 1 on 09/01/2019 by Erwin Olsen MD at OR [facility] [place] Left: SFA [employer] : VASCULAR [id number] 01/12/2022 [id number] -020-150 / / [id number] Device [facility] Cls Cadn Mynx6/7fr - [id number] Implanted:Qty : 1 on 02/21/2022 by Erwin Olsen MD at OR [facility] [place] CARDIOVASCULAR DYNAMICS [id number] 01/07/2023 [id number] / / [id number] documented as of this encounter Advance Directives [...] the patient have Health Care Power of Ged Preparation Teacher? No Care Teams Combatant Diver Qualified Relationship Specialty Start Date End Date Kerline Sotelo DO [address] [place] [facility] [place] [address] PCP - General Family Medicine 03/29/23 documented as of this encounter
--- OUTSIDE RECORDS SUMMARY | 2023-10-21 00:26 | External Medical Summary | Summary of Care ---
Author Name Unknown Organization [facility] Address [address] [place] [address] Phone [phone] Care Team Providers Care Smelter Operator Name Role Phone Kerline Sotelo Primary Care Provider + [phone] Reason for Visit * Reason Comments case management CKD CM goal review Encounter Details Date Type Department Care Team ([facility] st Contact Info) Description 06/11/2023 Chair Spring Assembler Care Coordination [address] [place] [address], [place] [id number] Suzie Quintero, MICHELET [address], [place] [id number] Chronic kidney disease, stage 4 (severe) (FORMERLY [facility])* Allergies No known active allergiesdocumented as of this encounter (statuses as of 06/11/2023) Medications Medication Sig Dispensed Refills Start Date End Date Status ASPIRIN LOW DOSE 81 MG PO TABSIndications:Othe r specified prophylactic or treatment measure 1 TABLET DAILY 30 Tab 11 05/19/2013 Active Blood Glucose Monitoring Suppl (ONETOUCH VERIO) w/Device KITIndications:[place] corwin glucose Use up to 4 times [...] as of this encounter (statuses as of 06/11/2023) Active Problems Problem Noted Date Diagnosed Date [...] as of this encounter (statuses as of 06/11/2023) Resolved Problems Problem Noted Date Diagnosed Date [...] as of this encounter (statuses as of 06/11/2023) Immunizations Name Administration Dates Next Due COVID-19 Whole Virus, Rollins Vac, 2-Dose Series (PrivateCore) 06/10/2021,11/08/2020,10/08/2020 Pneumococcal Polysaccharide PPV23 (Pneumovax) 05/19/2013 SEASONAL [...] as of this encounter Progress Notes * Suzie Quintero, RN - 06/11/2023 12:48 PM EDT Chair Spring Assembler Progress Note: Date: 06/11/23 Assigned Patient Tier: 3 Connected with patient via phone. Verified patient name/. Advised patient that call is being recorded for quality and training purposes. Assessment: Pt. noted the following: CKD CM goal review Pt had Options 01/29/23 Prefers PD/Transplant Spoke with pt, he is doing well. He reports that he heard that he was not eligible for kidney transplant at [facility]. Message to compensation business partner re: other options. Pt was approved by LAUR[facility], Valtessa is not covered, working with pharmacy reimbursement for coverage.Pt reports he has not taken it for about a month. Will f/u re: medication. Pt has labs ordered every 4-6 weeks. Bottles out med rec done. Pt adherent with everything except Valtessa. Pt gets SOB with walking about a block and his legs start to hurt. BP is monitored and sent to compensation business partner. BS 136. Pt to have nephrology f/u around 07/10, no appts available, will reach out to schedulers to get him an appt in July. Pt able to verbalize one red flag. Reviewed others with him. Plan; will f/u in 3-4 weeks for goal review. . Did you receive an alert for an annual wellness visit? Yes, [address] will schedule Is this call for a hospital, snf or rehab facility discharge to home? No Medication Reconciliation: Medication Reconciliation completed: yes Review of Current goals: Discussed the following patient-centered CM goals with the patient during this discussion: -CKD: Patient will maintain kidney function as long as possible -Status: On Track current GFR 18. -ESRD: Patient will be prepared for dialysis initiation -Status: On Track pt had Options education prefers PD, has had surgical consult and PD nurse visit.. -ESRD: Promote minimal renal risk for patient -Status: On Track pt avoids NSAIDS and OTC medications. COPD Patient: No CHF Patient: NO CM Plan: Reviewed 3 Red Flags with patient. Advised to call CM with any of the following: Red Flag 1: SOB, Red Flag 2: Edema, or Red Flag 3: N/V, loss of appetite Remote Patient Monitoring: At this time, RPM not offered/considered for patient due to N/A. Plan for Future Contacts: Plan to follow up within 1 month to check progress on the following goals/needs s/s of uremia, nephrology f/u appt. Planned contacts from the following parties will occur this week: N/A as additional contacts per workflow. Advancement/Closure Plan: Keep patient at current Tier with reassessment per workflow. Patient provided CM contact information and encouraged to call with any changes in condition. SNP Member? No PCP Notified of enrollment in CM/HM program: Yes Is Provider in agreement with POC? Yes Suzie Quintero RN Kidney Transitions Specialist CKD Chair Spring Assembler documented in this encounter Plan of Treatment Upcoming Encounters Date Type Department Care Team (Late st Contact Info) Description 07/06/2023 1:00 PM EST Office Visit Family Practice [address], [place] [address] [place] [address] Kerline Sotelo DO 293 [place] [address] 07/16/2023 2:30 PM EST Imaging Radiology [facility] [address] [facility] [place] [address] 08/26/2023 7:30 AM EST Imaging Vascular Lab, [facility] 2nd Floor, [place] [address] [facility] [place] [address] 08/26/2023 8:30 AM EST Imaging Vascular Lab, [facility] 2nd Floor, [place] [address] [facility] [place] [address] 09/02/2023 2:50 PM EST Office Visit Vascular Surgery, [facility] [address] [facility] [place] [address] Erwin Olsen MD [address] [place] [facility] [place] [address] 09/24/2023 4:00 PM EST Office Visit Dermatology[address], [place] [address] Arabella Motta PA-C [address] [place] [address] [place] [address] 10/19/2023 8:30 AM EDT Office Visit Cardiology, [facility] [address] [facility] [place] [address] Chele Alvarenga PAHeraclioC 132 [facility] [place] [address] Scheduled Procedures Name Priority Associated Diagnoses Date/Ti [...] this encounter Medical Devices Implanted Type Area Regional Sales Leader Device Identifier Shelf Expiration Date Model / Serial / Lot Graft Stent Viab [id number] - [id number] Implanted:Qty : 1 on 05/01/2014 at [place] [facility] Left: SFA [employer] 03/09/2017 [id number] / / [id number] Stent Complete Vt 6x60 - [id number] Implanted:Qty : 1 on 07/23/2016 by Erwin Olsen MD at [place] [facility] Left: Popliteal Artery [employer] : VASCULAR 02/25/2018 [id number] / / [id number] Graft Stent Viab [id number] - [id number] - [id number] Implanted:Qty : 1 on 01/12/2017 by Erwin Olsen MD at [place] [facility] Right: SFA [employer] 10/01/2019 [id number] / [id number] / Stent Peripheral 7 Diam 150x20 - [id number] Implanted:Qty : 1 on 09/01/2019 by Erwin Olsen MD at OR [facility] Left: SFA [employer] : VASCULAR [id number] 01/12/2022 [id number] / / [id number] Device Vasc Cls Cadn Mynx6/7fr - [id number] Implanted:Qty : 1 on 02/21/2022 by Erwin Olsen MD at OR [facility] CARDIOVASCULAR DYNAMICS [id number] 01/07/2023 [id number] / / [id number] documented as of this encounter Visit Diagnoses Diagnosis Chronic kidney disease, stage 4 (severe) (HCC)- Primary documented in this encounter Advance Directives Latest [...] the patient have Health Care Power of Art Tracer? No Care Teams Smelter Operator Relationship Specialty Start Date End Date Kerline Sotelo DO [address] [facility] [place] [address] PCP - General Family Medicine 03/29/23 documented as of this encounter
--- OUTSIDE RECORDS SUMMARY | 2023-10-21 00:26 | External Medical Summary | Summary of Care ---
Author Name Unknown Organization [facility] Address [address] [place] [address] Phone [phone] Care Team Providers Care Account Executive Sales Representative Name Role Phone Kerline Sotelo DO Primary Care Provider Reason for Visit * Reason Onset Date Comments Appointment 06/01/2023 Follow up - [address] Encounter Details Date Type Department Care Team ([facility] st Contact Info) Description 06/01/2023 Telephone Family Practice [address], [place] [address] [place] [phone] Kerline Sotelo DO [address] [place] [address] Appointment (Follow up - 65 f[address]) Allergies No known active allergiesdocumented as of this encounter (statuses as of 06/08/2023) Medications Medication Sig Dispensed Refills Start Date End Date Status ASPIRIN LOW DOSE 81 MG PO TABSIndications:Othe r specified prophylactic or treatment measure 1 TABLET DAILY 30 Tab 11 05/19/2013 Active Blood Glucose Monitoring Suppl (ONETOUCH VERIO) w/Device KITIndications:[place] corwin glucose Use up to 4 times [...] hemoglobin A1c goal of less than 7.0% ([facility]) USE WITH LANTUS ONCE DAILY OR DIRECTED 300 Each 3 11/20/2022 4 Active Lantus SoloStar 100 UNIT/ML Subcutaneous Solution Pen-injectorIndicati ons:Type 2 diabetes mellitus with hemoglobin A1c goal of less than 7.0% ([facility]) INJECT 18 UNITS UNDER THE SKIN ONCE [...] 75 MG Oral Tablet (pLAVix)Indications: 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) [...] as of this encounter (statuses as of 06/08/2023) Active Problems Problem Noted Date Diagnosed Date Cardiac asthma 09/19/2022 Diabetes mellitus 09/01/2022 Dyslipidemia, goal LDL below 70 09/01/2022 Renal osteodystrophy 09/01/2022 Multiple thyroid nodules 09/01/2022 Vitreous hemorrhage of right eye 09/01/2022 History of amputation of hallux 09/01/2022 Chronic kidney disease, stage 4 (severe) 022 Secondary hyperparathyroidism of renal origin Atherosclerosis of [place] ar teries of the extremities with ulceration [...] bilateral 05/28/2020 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[place] coronary artery without angina pectoris 05/28/2020 Diabetes [...] as of this encounter (statuses as of 06/08/2023) Resolved Problems Problem Noted Date Diagnosed Date [...] as of this encounter (statuses as of 06/08/2023) Immunizations Name Administration Dates Next Due COVID-19 Whole Virus, Rollins Vac, 2-Dose Series (iBoxPay) 06/10/2021,11/08/2020,10/08/2020 Pneumococcal Polysaccharide PPV23 (Pneumovax) 05/19/2013 SEASONAL [...] encounter Miscellaneous Notes * Telephone Encounter - Lyndsay Matos OSA - 06/08/2023 3:03 PM EDT Pt scheduled in June * Telephone Encounter - Lyndsay Matos OSA - 06/01/2023 2:46 PM EDT Pt missed his pcp follow up today. LMOM to reschedule this appt. documented in this encounter Plan of Treatment Upcoming Encounters Date Type Department Care Team (Late st Contact Info) Description 07/06/2023 1:00 PM EST Office Visit Family Practice [address], [place] [address] [place] [address] Kerline Sotelo, DO 293 [place] [address] 07/16/2023 2:30 PM EST Imaging Radiology [facility] 132 [facility] [place] [address] 08/26/2023 7:30 AM EST Imaging Vascular Lab, [facility] 2nd Floor, [place] 132 [facility] [place] [address] 08/26/2023 8:30 AM EST Imaging Vascular Lab, [facility] 2nd Floor, [place] 132 [facility] [place] [address] 09/02/2023 2:50 PM EST Office Visit Vascular Surgery, [facility] 132 [facility] [place] [address] Erwin Olsen MD [address] [facility] [place] [address] 09/24/2023 4:00 PM EST Office Visit Dermatology[address], [place] [address] Arabella Motta PA-C [address] [place] [address] [place] [address] 10/19/2023 8:30 AM EDT Office Visit Cardiology, [facility] 132 [facility] [place] [address] Chele Alvarenga PA-C 132 [facility] [place] [address] Scheduled Procedures Name Priority Associated Diagnoses Date/Ti [...] 11/18/2013 Diabetic Eye Exam 01/08/2024 01/07/2023, , 09/30/2021, Additional history exists [...] this encounter Medical Devices Implanted Type Area Electrical Power Station Technician Device Identifier Shelf Expiration Date Model / Serial / Lot Graft Stent Viab [id number] - [id number] Implanted:Qty : 1 on 05/01/2014 at OR [facility] Left: SFA [employer] 03/09/2017 [id number] / / [id number] Stent Complete Ak 6x60 - [id number] Implanted:Qty : 1 on 07/23/2016 by Erwin Olsen MD at OR [facility] Left: Popliteal Artery [employer] : VASCULAR 02/25/2018 [id number] / / [id number] Graft Stent Viab [id number] - [id number] - [id number] Implanted:Qty : 1 on 01/12/2017 by Erwin Olsen MD at OR [facility] Right: SFA [employer] 10/01/2019 [id number] 02A / [id number] / Stent Peripheral 7 Diam 150x20 - [id number] Implanted:Qty : 1 on 09/01/2019 by Erwin Olsen MD at OR [facility] Left: SFA [employer] : VASCULAR [id number] 01/12/2022 [id number] -020-150 / / [id number] Device [facility] Cls Cadn Mynx6/7fr - [id number] Implanted:Qty : 1 on 02/21/2022 by Erwin Olsen MD at OR [facility] CARDIOVASCULAR DYNAMICS [id number] 01/07/2023 [id number] / / [id number] documented as of this encounter Advance Directives [...] the patient have Health Care Power of Pocket Assembler? No Care Teams Account Executive Sales Representative Relationship Specialty Start Date End Date Kerline Sotelo DO [address] [facility] [place] [address] PCP - General Family Medicine 03/29/23 documented as of this encounter
[2023-10-21 00:27] LABS: ANTI-Xa, UFH(UnfractionatedHep 0.16 IU/ml (0.3-0.7)
--- OUTSIDE RECORDS SUMMARY | 2023-10-21 00:27 | External Medical Summary | Summary of Care ---
Author Name Unknown Organization [facility] Address [address] [place] [address] Phone [phone] Care Team Providers Care Call Out Operator Name Role Phone MarleneStormy chinchillazully [place] DO Primary Care Provider [phone] Reason for Visit * Reason Onset Date Comments Home Monitoring Telephone 06/01/2023 Encounter Details Date Type Department Care Team ([facility] st Contact Info) Description 06/01/2023 Telephone Care Coordination [address] [place] [address] Audi Wilkinson, Community Health Sales Training Representative [address] [place] [address] Home Monitoring Telephone Allergies No known active allergiesdocumented as of this encounter (statuses as of 06/01/2023) Medications Medication Sig Dispensed Refills Start Date End Date Status ASPIRIN LOW DOSE 81 MG PO TABSIndications:Othe r specified prophylactic or treatment measure 1 TABLET DAILY 30 Tab 11 05/19/2013 Active Blood Glucose Monitoring Suppl (ONETOUCH VERIO) w/Device KITIndications:[place] corwin glucose Use up to 4 times [...] 75 MG Oral Tablet (pLAVix)Indications: 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) [...] as of this encounter (statuses as of 06/01/2023) Active Problems Problem Noted Date Diagnosed Date Cardiac asthma 09/19/2022 Diabetes mellitus 09/01/2022 Dyslipidemia, goal LDL below 70 09/01/2022 Renal osteodystrophy 09/01/2022 Multiple thyroid nodules 09/01/2022 Vitreous hemorrhage of right eye 09/01/2022 History of amputation of hallux 09/01/2022 Chronic kidney disease, stage 4 (severe) 022 Secondary hyperparathyroidism of renal origin Atherosclerosis of [place] ar teries of the extremities with ulceration [...] bilateral 05/28/2020 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[place] coronary artery without angina pectoris 05/28/2020 Diabetes [...] as of this encounter (statuses as of 06/01/2023) Resolved Problems Problem Noted Date Diagnosed Date [...] as of this encounter (statuses as of 06/01/2023) Immunizations Name Administration Dates Next Due COVID-19 Whole Virus, Rollins Vac, 2-Dose Series (Motionloft) 06/10/2021,11/08/2020,10/08/2020 Pneumococcal Polysaccharide PPV23 (Pneumovax) 05/19/2013 SEASONAL [...] Telephone Encounter - Kindra Blount MD - 06/01/2023 4:11 PM EDT He did do a reading today perhaps after thi smessage was sent. I do see several missed readings however; Renal nurse pls contact pt, remind him of importance of chekcing bp daily and sending tiny given challenges w/ labile bp that he has * Telephone Encounter - Adan [facility] Sales Training Representative - 06/01/2023 10:45 AM EDT Please note that patient has now had three instances of inactivity with the [facility] hypertension program on the following dates: 02/16, 04/06, 06/01. Patient has been educated multiple times on our protocols and is now aware that any future instances of inactivity without valid reason subjects them to discharge from our program. If appropriate, please provide encouragement for patient to increase participation efforts so we can continue to provide care. Thank you. Audi Wilkinson Community Programs Specialist documented in this encounter Plan of Treatment Upcoming Encounters Date Type Department Care Team (Late st Contact Info) Description 07/16/2023 2:30 PM EST Imaging Radiology [address] [place] [address] 08/26/2023 7:30 AM EST Imaging Vascular Lab, [facility]nd [facility], [address] [place] [address] 08/26/2023 8:30 AM EST Imaging Vascular Lab, [facility] 2nd Floor, [place] 132 [facility] [place] [address] 09/02/2023 2:50 PM EST Office Visit Vascular Surgery, [facility] 132 [facility] [place] [address] Erwin Olsen MD [address] [facility] [address] 09/24/2023 4:00 PM EST Office Visit Dermatology[address] [place] [address] Arabella Motta PA-C [address] [place] [address] [place] [address] 10/19/2023 8:30 AM EDT Office Visit Cardiology, [facility] 132 [facility] [place] [address] Chele Alvarenga PA-C 132 [facility] [place] [address] Scheduled Procedures Name Priority Associated Diagnoses Date/Ti [...] 09/01/2022, Additional history exists GFR 11/02/2023 05/04/2023, 08/08/2022, 02/24/2023, Additional history exists DTaP,Tdap,and Td Vaccines [...] this encounter Medical Devices Implanted Type Area Napper Runner Device Identifier Shelf Expiration Date Model / Serial / Lot Graft Stent Viab [id number] - [id number] Implanted:Qty : 1 on 05/01/2014 at OR [facility] Left: SFA [employer] 03/09/2017 [id number] / / [id number] Stent Complete Sc 6x60 - [id number] Implanted:Qty : 1 on 07/23/2016 by Erwin Olsen MD at OR [facility] Left: Popliteal Artery [employer] : VASCULAR 02/25/2018 [id number] / / [id number] Graft Stent Viab [id number] - [id number] - [id number] Implanted:Qty : 1 on 01/12/2017 by Erwin Olsen MD at OR [facility] Right: SFA [employer] 10/01/2019 [id number] / [id number] / Stent Peripheral 7 Diam 150x20 - [id number] Implanted:Qty : 1 on 09/01/2019 by Erwin Olsen MD at OR [facility] Left: SFA [employer] : VASCULAR [id number] 01/12/2022 [id number] -020-150 / / [id number] Device Vasc Cls Cadn Mynx6/7fr - [id number] Implanted:Qty : 1 on 02/21/2022 by Erwin Olsen MD at OR [facility] CARDIOVASCULAR DYNAMICS [id number] 01/07/2023 [id number] / / [id number] documented as of this encounter Advance Directives [...] the patient have Health Care Power of Community Health Specialist? No Care Teams Call Out Operator Relationship Specialty Start Date End Date Kerline Sotelo DO 293 [place] [address] PCP - General Family Medicine 03/29/23 documented as of this encounter
--- OUTSIDE RECORDS SUMMARY | 2023-10-21 00:27 | External Medical Summary | Summary of Care ---
Author Name Unknown Organization [facility] Address [address] [place] [address] Phone [phone] Care Team Providers Care Felt Finishing Supervisor Name Role Phone Kerline Sotelo DO Primary Care Provider Reason for Visit * Reason Comments Dosage Adjustment In Person (Anticoag Cl inic) Diabetes Follow-Up Encounter Details Date Type Department Care Team ([facility] st Contact Info) Description 04/20/2023 1:40 PM EDT Office Visit Family Practice [address] [address] College, Pharmacist [address] [address] Type 2 diabetes mellitus with diabetic neuropathy, with long-term current use of insulin (HCC)*; 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 120 Tablet 11 3 Active Vitamin D 50 MCG (1999 UT) Oral Capsule Take 6,000 Units by mouth daily. 3 capsules daily 270 Cap 3 0 023 Discontinued(In dication List Clean Up) Calcitriol 0.25 MCG [...] morning. 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, unspecified whether terminal gauger insulin use (HCC) 1.5 mg IJ PRN 11/24/2022 3 Discontinued documented as of this encounter (statuses as of 06/02/2023) Active Problems Problem Noted Date Diagnosed Date Cardiac asthma 09/19/2022 Diabetes mellitus 09/01/2022 Dyslipidemia, goal LDL below 70 09/01/2022 Renal osteodystrophy 09/01/2022 Multiple thyroid nodules 09/01/2022 Vitreous hemorrhage of right eye 09/01/2022 History of amputation of hallux 09/01/2022 Chronic kidney disease, stage 4 (severe) 022 Secondary hyperparathyroidism of renal origin Atherosclerosis of [place] ar teries of the extremities with ulceration [...] bilateral 05/28/2020 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[place] coronary artery without angina pectoris 05/28/2020 Diabetes [...] as of this encounter (statuses as of 06/02/2023) Resolved Problems Problem Noted Date Diagnosed Date [...] as of this encounter (statuses as of 06/02/2023) Immunizations Name Administration Dates Next Due COVID-19 Whole Virus, Rollins Vac, 2-Dose Series ([facility]) 06/10/2021,11/08/2020,10/08/2020 Pneumococcal Polysaccharide PPV23 (Pneumovax) 05/19/2013 SEASONAL [...] of this encounter Progress Notes * Angeles Tapia Willi, [facility] - 05/22/2023 4:17 PM EDT Medication Therapy Disease Management Clinic - Diabetes Management Progress Note Miguel Kunz, identified by name and date of , is a 68 year old male being seen for diabetes management/education. Patient presents for return diabetic visit. DIABETES: Current diabetic medications: Lantus 18 units daily (giving up to 30 units daily at times) Medication Injection Site: Abdomen Lifestyle: Diet: unchanged Foot limiting mobility Glucose Review/SMBG: Readings per patient memory/recall: Patient is currently testing 1-2 times a day. Hasn't been able to consistently get the CGM. Hypoglycemia: Does your blood sugar go below 70 mg/dL? No Hyperglycemia symptoms present: none Recent Labs Units 04/09/23 0954 02/24/23 0842 09/01/22 0955 HEMOGLOBIN A1C - [facility] % 8.2* 8.8* 6.7* Recent Labs Units 05/04/23 1440 04/09/23 0954 02/24/23 0842 ESTIMATED GLOMERULAR FILTRATION RATE - [facility] mL/min 18* 16* 17* CREATININE - [facility] mg/dL 3.5* 4.0* 3.8* HYPERTENSION: Patient on ACEi/ARB: yes BP Readings from Last 3 Encounters: 04/20/23 110/58 Blood pressure at goal: yes HYPERLIPIDEMIA: Patient is taking moderate or high intensity statin: yes HEALTH MAINTENANCE REVIEW: Health Maintenance Due Topic Date Due Pneumococcal Vaccine: 65+ Years (2 - PCV) 05/19/2014 Zoster Vaccines (2 of 2) 04/12/2018 COLONOSCOPY-EVERY 5 YRS AGES 18-100 03/27/2021 COVID-19 Vaccine (3 - WHO-authorized risk series) 07/08/2021 ASSESSMENT & PLAN: ICD-10-CM 1. Type 2 diabetes mellitus with diabetic neuropathy, with long-term current use of insulin ([facility]) E11.40 Z79.4 2. 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 Medications - Reviewed current regimen, patient is adherent to regimen. Discussed being consistent with Lantus dose. Diet, Exercise, Lifestyle - No significant lifestyle changes since last visit. Discussed with patient. Patient is agreeable to SMBG 2 time(s) daily. Patient aware to contact clinic if any hypoglycemia before next visit. MEDICATION CHANGES: no change Diabetic Medications: Lantus 18 units daily (giving up to 30 units daily at times) HEALTH MAINTENANCE INTERVENTIONS: Labs: Up to Date Immunizations: declines vaccines Foot Exam: Up to Date Eye Exam: Up to Date Annual Wellness Visit: Up to Date FOLLOW UP: Return to clinic in 4 weeks with PCP Angeles Novak [facility] Clinical Pharmacist - Bung Sewer Medication Therapy Management Clinic 04/20/2023, 4:17 PM documented in this encounter Plan of Treatment Upcoming Encounters Date Type Department Care Team (Late st Contact Info) Description 07/06/2023 1:00 PM EST Office Visit Family Practice 65 [facility] [place] [address] [place] [address] Kerline Sotelo DO [address] [place] [address] 07/16/2023 2:30 PM EST Imaging Radiology [facility] 132 [facility] [place] [address] 08/26/2023 7:30 AM EST Imaging Vascular Lab, [facility] 2nd [facility] 132 [facility] [place] [address] 08/26/2023 8:30 AM EST Imaging Vascular Lab, [facility] 2nd [facility] 132 [facility] [place] [address] 09/02/2023 2:50 PM EST Office Visit Vascular Surgery, [address] [place] [address] Erwin Olsen MD [address] [place] [address] 09/24/2023 4:00 PM EST Office Visit Dermatology, [place] [address] [address] [employer] [place] [address] Arabella Motta PA-C [address] [place] [address] [place] [address] 10/19/2023 8:30 AM EDT Office Visit Cardiology, [facility] [address] [place] [address] Chele Alvarenga PA-C [address] [address] [address] Scheduled Procedures Name Priority Associated Diagnoses Date/Ti [...] this encounter Medical Devices Implanted Type Area Clinical Laboratory Aide Device Identifier Shelf Expiration Date Model / Serial / Lot Graft Stent Viab [id number] - [id number] Implanted:Qty : 1 on 05/01/2014 [place] [facility] [place]: SFA [employer] 03/09/2017 [id number] / / [id number] Stent Complete Sc 6x60 - [id number] Implanted:Qty : 1 on 07/23/2016 by Erwin Olsen MD [place] [facility] [place]: Popliteal Artery [employer] : VASCULAR 02/25/2018 [id number] / / [id number] Graft Stent Viab 8eob0ux - [id number] - [id number] Implanted:Qty : 1 on 01/12/2017 by Erwin Olsen MD [place] [facility] [place] Right: SFA [employer] 10/01/2019 [id number] 02A / [id number] / Stent Peripheral 7 Diam 150x20 - [id number] Implanted:Qty : 1 on 09/01/2019 by Erwin Olsen MD [place] [facility] [place]: SFA [employer] : VASCULAR [id number] 01/12/2022 [id number] -020-150 / / [id number] Device [facility] Cls Cadn Mynx6/7fr - [id number] Implanted:Qty : 1 on 02/21/2022 by Erwin Olsen MD at [place] [facility] [place] CARDIOVASCULAR DYNAMICS [id number] 01/07/2023 [id number] / / [id number] documented as of this encounter Visit Diagnoses Diagnosis 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 No Care Teams Felt Finishing Supervisor Relationship Specialty Start Date End Date Kerline Sotelo DO 293 [place] [address] PCP - General Family Medicine 03/29/23 documented as of this encounter
--- OUTSIDE RECORDS SUMMARY | 2023-10-21 00:27 | External Medical Summary | Summary of Care ---
Author Name Unknown Organization [facility] Address [address] [place] [address] Phone [phone] Care Team Providers Care Tower Cleaner Name Role Phone MarleneStormy chinchillazully [place] DO Primary Care Provider [phone] Reason for Visit * Reason Onset Date Comments Home Monitoring Telephone 06/01/2023 Encounter Details Date Type Department Care Team ([facility] st Contact Info) Description 06/01/2023 Telephone Care Coordination [address] [place] [address] Audi Wilkinson, [facility] Card Filer [address] [place] [address] Home Monitoring Telephone Allergies No known active allergiesdocumented as of this encounter (statuses as of 06/02/2023) Medications Medication Sig Dispensed Refills Start Date End Date Status ASPIRIN LOW DOSE 81 MG PO TABSIndications:Othe r specified prophylactic or treatment measure 1 TABLET DAILY 30 Tab 11 05/19/2013 Active Blood Glucose Monitoring Suppl (ONETOUCH VERIO) w/Device KITIndications:[place] corwin glucose Use up to 4 times [...] 75 MG Oral Tablet (pLAVix)Indications: 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) [...] Secondary hyperparathyroidism of renal origin Atherosclerosis of [place] ar teries of the extremities with ulceration [...] bilateral 05/28/2020 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[place] coronary artery without angina pectoris 05/28/2020 Diabetes [...] COVID-19 Whole Virus, Rollins Vac, 2-Dose Series ([employer]) 06/10/2021,11/08/2020,10/08/2020 Pneumococcal Polysaccharide PPV23 (Pneumovax) 05/19/2013 SEASONAL [...] encounter Miscellaneous Notes * Telephone Encounter - Florina Evans LPN - 06/02/2023 10:07 AM EDT Sent myg reminder to patient * Telephone Encounter - Kindra Blount MD - 06/01/2023 4:11 PM EDT He did do a reading today perhaps after thi smessage was sent. I do see several missed readings however; Renal nurse pls contact pt, remind him of importance of chekcing bp daily and sending tiny given challenges w/ labile bp that he has * Telephone Encounter - [facility] Filer - 06/01/2023 10:45 AM EDT Please note [...] EST Office Visit Family Practice [address], [place] 293 [facility], [place] [address] Kerline Sotelo DO 293 [place] [address] 07/16/2023 2:30 PM EST Imaging Radiology [facility] 132 [facility] [address] 08/26/2023 7:30 AM EST Imaging Vascular Lab, [facility] 2nd Floor, [place] 132 [facility] [address] 08/26/2023 8:30 AM EST Imaging Vascular Lab, [facility] 2nd Floor, [place] 132 [facility] [address] 09/02/2023 2:50 PM EST Office Visit Vascular Surgery, [facility] 132 [facility] [address] Erwin Olsen MD [address] [place] [address] 09/24/2023 4:00 PM EST Office Visit Dermatology[address] [address] Arabella Motta PA-C [address] [place] [address] [place] [address] 10/19/2023 8:30 AM EDT Office Visit Cardiology, [facility] 132 [facility] [place] [address] Chele Alvarenga PA-C [address] [facility] [address] [address] [address] Scheduled Procedures Name Priority Associated Diagnoses Date/Ti [...] this encounter Medical Devices Implanted Type Area Metal Machine Operator Device Identifier Shelf Expiration Date Model / Serial / Lot Graft Stent Viab [id number] - [id number] Implanted:Qty : 1 on 05/01/2014 at [place] [facility] [place] Left: SFA [employer] 03/09/2017 [id number] / / [id number] Stent Complete Sc 6x60 - [id number] Implanted:Qty : 1 on 07/23/2016 by Erwin Olsen MD at [place] [facility] [place] Left: Popliteal Artery [employer] : VASCULAR 02/25/2018 [id number] / / [id number] Graft Stent Viab [id number] - [id number] - [id number] Implanted:Qty : 1 on 01/12/2017 by Erwin Olsen MD at [place] [facility] [place] Right: SFA [employer] 10/01/2019 [id number] 02A / [id number] / Stent Peripheral 7 Diam 150x20 - [id number] Implanted:Qty : 1 on 09/01/2019 by Erwin Olsen MD at [place] [facility] [place] Left: SFA [employer] : VASCULAR [id number] 01/12/2022 WNT61-03 -020-150 / / [id number] Device [facility] Cls Cadn Mynx6/7fr - [id number] Implanted:Qty : 1 on 02/21/2022 by Erwin Olsen MD at [place] [facility] [place] CARDIOVASCULAR DYNAMICS [id number] 01/07/2023 [id number] / / [id number] documented as of this encounter Advance Directives [...] the patient have Health Care Power of Box Puller? No Care Teams Tower Cleaner Relationship Specialty Start Date End Date Kerline Soetlo DO 293 [place] [address] PCP - General Family Medicine 03/29/23 documented as of this encounter
--- OUTSIDE RECORDS SUMMARY | 2023-10-21 00:27 | External Medical Summary | Summary of Care ---
Author Name Unknown Organization [facility] Address [address] [place] [address] Phone [phone] Care Team Providers Care Carving Machine Operator Name Role Phone MarleneStormy chinchillazully [place] DO Primary Care Provider [phone] Reason for Visit * Reason Onset Date Comments Home Monitoring Telephone 06/01/2023 Encounter Details Date Type Department Care Team ([facility] st Contact Info) Description 06/01/2023 Telephone Care Coordination [address] [place] [address] Audi Wilkinson, [facility] Dope Dry House Operator [address] [place] [address] Home Monitoring Telephone Allergies No known active allergiesdocumented as of this encounter (statuses as of 06/01/2023) Medications Medication Sig Dispensed Refills Start Date End Date Status ASPIRIN LOW DOSE 81 MG PO TABSIndications:Othe r specified prophylactic or treatment measure 1 TABLET DAILY 30 Tab 11 05/19/2013 Active Blood Glucose Monitoring Suppl (ONETOUCH VERIO) w/Device KITIndications:[place] corwin glucose Use up to 4 times [...] 75 MG Oral Tablet (pLAVix)Indications: Atherosclerosis of [place] arteries of the extremities with ulceration (HCC) [...] Secondary hyperparathyroidism of renal origin Atherosclerosis of [place] ar teries of the extremities with ulceration [...] bilateral 05/28/2020 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[place] coronary artery without angina pectoris 05/28/2020 Diabetes [...] COVID-19 Whole Virus, Rollins Vac, 2-Dose Series ([employer]) 06/10/2021,11/08/2020,10/08/2020 Pneumococcal Polysaccharide PPV23 (Pneumovax) 05/19/2013 SEASONAL [...] encounter Miscellaneous Notes * Telephone Encounter - Adan [facility] Dope Dry House Operator - 06/01/2023 10:45 AM EDT Please note [...] Description 07/16/2023 2:30 PM EST Imaging Radiology [facility] [address] [place] [address] 08/26/2023 7:30 AM EST Imaging Vascular Lab, [facility] 2nd [facility] 132 [place] [address] 08/26/2023 8:30 AM EST Imaging Vascular Lab, [facility] 2nd [facility] 132 [place] [address] 09/02/2023 2:50 PM EST Office Visit Vascular Surgery, [address] [place] [address] Erwin Olsen MD [address] [place] [address] 09/24/2023 4:00 PM EST Office Visit Dermatology, [address] [place] [address] Arabella Motta PA-C [address] [place] [address] [place] [address] 10/19/2023 8:30 AM EDT Office Visit Cardiology, [facility] [address] [place] [address] Chele Alvarenga PA-C [address] [place] [address] Scheduled Procedures Name Priority Associated Diagnoses Date/Ti [...] this encounter Medical Devices Implanted Type Area Cascade Operator Device Identifier Shelf Expiration Date Model / Serial / Lot Graft Stent Viab 4qio5ml - [id number] Implanted:Qty : 1 on 05/01/2014 at [place] [facility] [place] Left: SFA [employer] 03/09/2017 [id number] 2 / / [id number] Stent Complete Az 6x60 - [id number] Implanted:Qty : 1 on 07/23/2016 by Erwin Olsen MD at OR [facility] [place] Left: Popliteal Artery [employer] : VASCULAR 02/25/2018 [id number] / / [id number] Graft Stent Viab 4rnu5fa - [id number] - [id number] Implanted:Qty : 1 on 01/12/2017 by Erwin Olsen MD at OR [facility] [place] Right: SFA [employer] 10/01/2019 [id number] 02A / [id number] / Stent Peripheral 7 Diam 150x20 - [id number] Implanted:Qty : 1 on 09/01/2019 by Erwin Olsen MD at OR [facility] [place] Left: SFA [employer] : VASCULAR [id number] 01/12/2022 MJQ69-47 -020-150 / / [id number] Device [facility] Cls Cadn Mynx6/7fr - [id number] Implanted:Qty : 1 on 02/21/2022 by Erwin Olsen MD at OR [facility] [place] CARDIOVASCULAR DYNAMICS [id number] 01/07/2023 [id number] / / [id number] documented as of this encounter Advance Directives [...] the patient have Health Care Power of Lamp Tester And Inspector? No Care Teams Carving Machine Operator Relationship Specialty Start Date End Date Kerline Sotelo DO [address] [place] [address] PCP - General Family Medicine 03/29/23 documented as of this encounter
--- OUTSIDE RECORDS SUMMARY | 2023-10-21 00:27 | External Medical Summary | Summary of Care ---
Author Name Unknown Organization [facility] Address [address] [place] [address] Phone [phone] Care Team Providers Care Lipcoat Sprayer Name Role Phone Kerline Sotelo DO Primary Care Provider Reason for Visit * Reason Onset Date Comments Appointment 06/01/2023 Follow up - 67 f wd Encounter Details Date Type Department Care Team ([facility] st Contact Info) Description 06/01/2023 Telephone Family Practice [address], [place] [address] [place] [address] Kerline Sotelo DO [address] [place] [address] Appointment (Follow up - 67 fwd) Allergies No known active allergiesdocumented as of this encounter (statuses as of 06/01/2023) Medications Medication Sig Dispensed Refills Start Date End Date Status ASPIRIN LOW DOSE 81 MG PO TABSIndications:Othe r specified prophylactic or treatment measure 1 TABLET DAILY 30 Tab 11 05/19/2013 Active Blood Glucose Monitoring Suppl (ONETOUCH VERIO) w/Device KITIndications:[place] corwin glucose Use up to 4 times [...] goal of less than 7.0% ([facility]) USE WITH LANTUS ONCE DAILY OR DIRECTED 300 Each 3 11/20/2022 4 Active Lantus SoloStar 100 UNIT/ML Subcutaneous Solution Pen-injectorIndicati ons:Type 2 diabetes mellitus with hemoglobin A1c goal of less than 7.0% ([facility]) INJECT 18 UNITS UNDER THE SKIN [...] 75 MG Oral Tablet (pLAVix)Indications: Atherosclerosis of [place] arteries of the extremities with ulceration (HCC) [...] Secondary hyperparathyroidism of renal origin Atherosclerosis of [place] ar teries of the extremities with ulceration [...] bilateral 05/28/2020 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[place] coronary artery without angina pectoris 05/28/2020 Diabetes [...] COVID-19 Whole Virus, Rollins Vac, 2-Dose Series ([employer]) 06/10/2021,11/08/2020,10/08/2020 Pneumococcal Polysaccharide PPV23 (Pneumovax) 05/19/2013 [...] encounter Miscellaneous Notes * Telephone Encounter - SHAYNE Kerr - 06/01/2023 2:46 PM EDT Pt missed his pcp follow up today. LMOM to reschedule this appt. documented in this encounter Plan of Treatment Upcoming Encounters Date Type Department Care Team (Late st Contact Info) Description 07/16/2023 2:30 PM EST Imaging Radiology [address] [place] [address] 08/26/2023 7:30 AM EST Imaging Vascular Lab, [address] [place] [address] 08/26/2023 8:30 AM EST Imaging Vascular Lab, [address] [place] [address] 09/02/2023 2:50 PM EST Office Visit Vascular Surgery, [address] [place] [address] [facility]lsen MD [address] [facility] [address] 09/24/2023 4:00 PM EST Office Visit Dermatology, [address] [id number] Arabella Motta PA-C [address] [place] [address] [place] [address] 10/19/2023 8:30 AM EDT Office Visit Cardiology, [facility] [address] [place] [address] Chele Alvarenga PA-C [address] [place] [address] Scheduled Procedures Name Priority Associated Diagnoses Date/Ti [...] this encounter Medical Devices Implanted Type Area Extrusion Engineer Device Identifier Shelf Expiration Date Model / Serial / Lot Graft Stent Viab [id number] - [id number] Implanted:Qty : 1 on 05/01/2014 at [place] [facility] [place] Left: SFA [employer] 03/09/2017 [id number] 2 / / [id number] Stent Complete Sc 6x60 - [id number] Implanted:Qty : 1 on 07/23/2016 by Erwin Olsen MD at [place] [facility] [place] Left: Popliteal Artery [employer] : VASCULAR 02/25/2018 [id number] / / [id number] Graft Stent Viab [id number] - [id number] - [id number] Implanted:Qty : 1 on 01/12/2017 by Erwin Olsen MD at [place] [facility] [place] Right: SFA [employer] 10/01/2019 [id number] 02A / [id number] / Stent Peripheral 7 Diam 150x20 - [id number] Implanted:Qty : 1 on 09/01/2019 by Erwin Olsen MD at [place] [facility] [place] Left: SFA [employer] : VASCULAR [id number] 01/12/2022 TDC71-36 -020-150 / / [id number] Device [facility] Cls Cadn Mynx6/7fr - [id number] Implanted:Qty : 1 on 02/21/2022 by Erwin Olsen MD at OR [facility] [place] CARDIOVASCULAR DYNAMICS [id number] 01/07/2023 [id number] / / [id number] documented as of this encounter Advance Directives [...] the patient have Health Care Power of Vp Care Management? No Care Teams Lipcoat Sprayer Relationship Specialty Start Date End Date Kerline Sotelo DO [address] [place] [address] PCP - General Family Medicine 03/29/23 documented as of this encounter
--- OUTSIDE RECORDS SUMMARY | 2023-10-21 00:27 | External Medical Summary | Summary of Care ---
Author Name Unknown Organization [facility] Address [address] [place] [address] Phone [phone] Care Team Providers Care Supervisor Functional Testing Name Role Phone Kerline Sotelo Primary Care Provider + [phone] Reason for Visit * Reason Onset Date Comments case management 05/26/2023 CKD CM pt contac t Encounter Details Date Type Department Care Team Description 05/26/2023 Encyclopedia Research Worker Telephone Care Coordination [address] [place] [address] Suzie Quintero, fire management specialist (CKD CM pt contact) Allergies No known active allergiesdocumented as of this encounter (statuses as of 05/26/2023) Medications Medication Sig Dispensed Refills Start Date End Date Status ASPIRIN LOW DOSE 81 MG PO TABSIndications:Othe r specified prophylactic or treatment measure 1 TABLET DAILY 30 Tab 11 05/19/2013 Active Blood Glucose Monitoring Suppl (ONETOUCH VERIO) w/Device KITIndications:[place] glucose Use up to 4 times [...] 75 MG Oral Tablet (pLAVix)Indications: Atherosclerosis of [place] arteries of the extremities with ulceration (HCC) [...] as of this encounter (statuses as of 05/26/2023) Active Problems Problem Noted Date Cardiac asthma 09/19/2022 Diabetes mellitus 09/01/2022 Dyslipidemia, goal LDL below 70 09/01/19 23 Renal osteodystrophy 09/01/2022 Multiple thyroid nodules 09/01/2022 Vitreous hemorrhage of right eye 023 History of amputation of hallux 09/01/19 Chronic kidney disease, stage 4 (severe) 03/07/2022 Secondary hyperparathyroidism of renal o rigin 03/07/2022 Atherosclerosis of [place] arteries of th e extremities with ulceration 03/07/2022 Multinodular goiter 03/07/2022 Major depressive disorder with single ep isode 03/07/2022 Type 2 diabetes mellitus wit h diabetic neuropathy, with long-term current use of insulin 03/07/2022 Depression 05/03/2021 Hypertensive kidney disease with stage 3 b chronic kidney disease 06/18/2020 Overview: Per CKD protocol Type 2 diabetes mellitus wit h moderate nonproliferative diabetic retinopathy with macular edema, bilateral 05/28/2020 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[place] coronary artery without angina pectoris 05/28/2020 Diabetes mellitus with nephropathy 05/25 Diabetes mellitus type 2 with peripheral artery disease 05/25/2019 Aortic root dilatation 05/25/2019 Diabetes mellitus, insulin dependent (ID DM), controlled 05/25/2019 DDD (degenerative disc disease), cervica l 06/18/2018 Urinary retention 08/25/2017 BPH with obstruction/lower urinary tract symptoms 08/25/2017 PAD (peripheral artery disease) 07/24/20 16 Eczema 09/13/2014 Nodule of flexor tendon sheath 5 Thoracic aortic aneurysm 08/25/2013 Family history of ischemic heart disease 08/25/2013 Vitamin D deficiency 08/02/2013 HTN, goal below 140/90 06/21/2013 documented as of this encounter (statuses as of 05/26/2023) Resolved Problems Problem Noted Date Resolved Date Type 2 diabetes mellitus wit h stage 3b chronic kidney disease 12/18/2020 09/01/2022 Overview: Per CKD protocol Chronic kidney disease, stage 3b 12/18/2020 08/20/2021 Overview: Per CKD protocol Duplicate. Type 2 diabetes mellitus with diabetic polyneuro ailin 05/28/2020 03/07/2022 Moderate nonproliferative di abetic retinopathy of both eyes with macular edema associated with type 2 diabetes mellitus 05/25/2019 08/20/2021 Overview: Duplicate. Hypertensive kidney disease with chronic kidney disease stage III 12/20/2018 06/21/2020 Overview: Per CKD protocol Diabetes mellitus with stage 3 chronic kidney di sease 12/20/2018 12/20/2020 Overview: Per CKD protocol Neck pain 06/18/2018 12/20/2018 Sepsis due to group B Streptococcus 08/25/2017 05/23/2019 Atypical chest pain 08/25/2017 12/20/2018 Kidney disease, chronic, stage III (GFR 30-59 ml /min) 02/19/2016 01/19/2019 Recurrent UTI 02/19/2016 05/23/2019 Overview: acute PVD (peripheral vascular disease) 06/13/2014 02/02/2017 ARRIAGA (dyspnea on exertion) 08/25/20132018 Type 2 diabetes mellitus wit h hemoglobin A1c goal of less than 7.0% 08/02/2013 08/20/2021 Overview: ICD-10 update of inactive term Duplicate. Hypertriglyceridemia 06/21/2013 07/16/2017 documented as of this encounter (statuses as of 05/26/2023) Immunizations Name Administration Dates Next Due COVID-19 Whole Virus, Rollins Vac, 2-Dose Series (Strobe) 06/10/2021,11/08/2020,10/08/2020 Pneumococcal Polysaccharide PPV23 (Pneumovax) 05/19/2013 SEASONAL [...] alcohol) in the past, but not currently Food Insecurity Answer Date Recorded Within the past 12 months, y ou worried that your food would run out before you got money to buy more. Never true 04/20/2023 Within the past 12 months, t he food you bought just didn't last and you didn't have money to get more. Never true 04/20/2023 Sex Assigned at Date Recorded Male 12/21/2018 3:54 PM E DT Job Start Date Occupation Industry Not on [...] Telephone Encounter - Suzie Quintero RN - 05/26/2023 1:25 PM EDT CKD CM Spoke with pt briefly, he was unable to talk as he was at work. Did make him aware of response from information technology intern re: PACE program eligibility and if not eligible that there is another program available. Will attempt to contact pt later today, if no response, will try again later this week later in theday. Suzie Quintero RN Kidney Transitions Specialist CKD Encyclopedia Research Worker documented in this encounter Plan of Treatment Upcoming Encounters Date Type Specialty Care Team Description 06/01/2023 Office Visit [facility] Medicine Kerline Sotelo, DO [address] [place] [address] 06/01/2023 Office Visit [facility], Pharmacist [address] [place] [address] 07/16/2023 Imaging Radiology 08/26/2023 Imaging Radiology 08/26/2023 Imaging Radiology 09/02/2023 Office Visit Vascular Surgery Erwin Olsen MD [address] [place] [address] 09/24/2023 Office Visit Dermatology Arabella Motta PA-C [address] [place] [address] [place] [address] 10/19/2023 Office Visit Cardiology Chele Alvarenga PA-C [address] [place] [address] Scheduled Procedures Name Priority Associated Diagnoses Date/Ti me COLONOSCOPY FLEXIBLE PROXIMA L DIAGNOSTIC Recall History of colon polyps Special screening for malignant neoplasms, colon Health Maintenance Due Date Last Done Comments Pneumococcal Vaccine: 65+ Years (2 - PCV) 05/19/2014 05/19/2013 Zoster Vaccines (2 [...] this encounter Medical Devices Implanted Type Area Class C Truck Driver Device Identifier Shelf Expiration Date Model / Serial / Lot Graft Stent Viab [id number] - [id number] Implanted:Qty : 1 on 05/01/2014 at OR [facility] [place] Left: [employer] 03/09/2017 [id number] / / [id number] Stent Complete Wi 6x60 - [id number] Implanted:Qty : 1 on 07/23/2016 by Erwin Olsen MD at OR [facility] [place] Left: Popliteal Artery [employer] : VASCULAR 02/25/2018 [id number] / / [id number] Graft Stent Viab [id number] - [id number] - [id number] Implanted:Qty : 1 on 01/12/2017 by Erwin Olsen MD at OR [facility] [place] Right: [employer] 10/01/2019 [id number] / [id number] / Stent Peripheral 7 Diam 150x20 - [id number] Implanted:Qty : 1 on 09/01/2019 by Erwin Olsen MD at OR [facility] [place] Left: SFA [employer] : VASCULAR [id number] 01/12/2022 [id number] / / [id number] Device Vasc Cls Cadn Mynx6/7fr - [id number] Implanted:Qty : 1 on 02/21/2022 by Erwin Olsen MD at OR [facility] [place] CARDIOVASCULAR DYNAMICS [id number] 01/07/2023 [id number] / / [id number] documented as of this encounter Advance Directives [...] the patient have Health Care Power of Aircraft Delivery Checker? No Care Teams Supervisor Functional Testing Relationship Specialty Start Date End Date Kerline Sotelo, DO [address] [place] [address] PCP - General Family Medicine 03/29/23 documented as of this encounter
--- OUTSIDE RECORDS SUMMARY | 2023-10-21 00:28 | External Medical Summary | Summary of Care ---
Author Name Unknown Organization [facility] Address [address] [place] [address] Phone [phone] Care Team Providers Care Industrial Insulator Name Role Phone Marleneamor Kerline Ludy CASTELLANO Primary Care Provider + [phone] Reason for Visit * Reason Comments Post-Op L toe Encounter Details Date Type Department Care Team Description 05/14/2023 Office Visit [facility] [address] [facility] [address] Angeles Arciniega DPM [address] [facility] [place] [address] Examination following surgery*; Osteomyelitis of second toe of left foot (HCC) Allergies No known active allergiesdocumented as of this encounter (statuses as of 05/14/2023) Medications Medication Sig Dispensed Refills Start Date End Date Status ASPIRIN LOW DOSE 81 MG PO TABSIndications:Othe r specified prophylactic or treatment measure 1 TABLET DAILY 30 Tab 11 05/19/2013 Active Blood Glucose Monitoring Suppl (ONETOUCH VERIO) w/Device KITIndications:[place] corwin glucose Use up to 4 times a day E11.9 1 Kit 0 12/22/2018 Active ONETOUCH DELICA LANCETS 33G MISC test blood sugars up to four times daily. ICD-10: E11.9 100 Each 11 08/15/2019 Active Spacer/Aero-Holding Chambers DeviceIndications:DO E (dyspnea on exertion),Shortness of breath Use with inhaler. 1 Each 0 09/18/2022 Active Calcitriol 0.25 MCG Oral Capsule (Rocaltrol)Indicatio ns:Hypertensive kidney disease with stage 3b chronic kidney disease (HCC) Take 1 Capsule by mouth in the morning. 30 Capsule 5 12/16/2022 Active Melatonin 10 MG Oral Tablet Take [...] DAILY 30 mL 3 11/20/2022 4 Active Pantoprazole Sodium 40 MG Oral Tablet Delayed Release (Protonix)Indication s:ARRIAGA (dyspnea on exertion),Shortness of breath TAKE ONE TABLET BY MOUTH EVERY EVENING 100 Tablet 1 10/27/2022 4 Active Glucose Blood In Vitro Strip [...] 75 MG Oral Tablet (pLAVix)Indications: Atherosclerosis of [place] arteries of the extremities with ulceration (HCC) [...] the morning. 30 Each 5 05/10/2023 Active documented as of this encounter (statuses as of 05/14/2023) Active Problems Problem Noted Date Cardiac asthma 09/19/2022 Diabetes mellitus 09/01/2022 Dyslipidemia, goal LDL below 70 09/01/19 23 Renal osteodystrophy 09/01/2022 Multiple thyroid nodules 09/01/2022 Vitreous hemorrhage of right eye 023 History of amputation of hallux 09/01/19 23 Chronic kidney disease, stage 4 (severe) 03/07/2022 Secondary hyperparathyroidism of renal o rigin 03/07/2022 Atherosclerosis of [place] arteries of th e extremities with ulceration [...] bilateral 05/28/2020 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[place] coronary artery without angina pectoris 05/28/2020 Diabetes [...] as of this encounter (statuses as of 05/14/2023) Resolved Problems Problem Noted Date Resolved Date [...] as of this encounter (statuses as of 05/14/2023) Immunizations Name Administration Dates Next Due COVID-19 Whole Virus, Rollins Vac, 2-Dose Series (Recipharm) 06/10/2021,11/08/2020,10/08/2020 Pneumococcal Polysaccharide PPV23 (Pneumovax) 05/19/2013 SEASONAL [...] of this encounter Progress Notes * Angeles Arciniega DPM - 05/14/2023 9:07 AM EDT Podiatry Post-Op Note [facility] Name: Miguel Heller : 1955 Date: 05/14/2023 POST-OP VISIT: #1 DATE OF SURGERY: 05/06/2023 PROCEDURE: Left 2nd toe amputation SUBJECTIVE: Patient presents today for follow up of the above mentioned procedure. Doing well. No complaints ofpain. Has been showering as instructed and using a dry dressing. Swelling resolved. Using his post-op shoe. Weightbearing Status: Left Lower Extremity: weightbearing Right Lower Extremity: weightbearing Assistive Device: None Post-Op Related Medications: pain medications: OTC PRN OBJECTIVE: Dressing: Clean, dry and intact. Incision is well coapted with sutures noted. No active signs of infection. No dehiscence. Edema is controlled. DIAGNOSTIC STUDIES: None ASSESSMENT: S/p 2nd toe amputation, left PLAN: - Pt doing well. Incision looks great. Swelling controlled and no active signs of infection. - Continue with showering and dry dressing. No soaking. No ointment. - Ok to walk in a normal shoe - OTC pain medication PRN - Pt to RTC in 1 week for suture removal. Instructed to call with any problems or questions. Angeles Arciniega DPM documented in this encounter Nursing Notes * Cathy Herrera LPN - 05/14/2023 8:48 AM EDT Pt presents for post op visit #1, L 2nd toe amp 05/06/2023. Wearing post op shoe, states is 'a little sore, not too bad'. Pt has been showering and changing dressing daily, using guaze and a large band aid. Does not test BSG until later in the day. documented in this encounter Plan of Treatment Upcoming Encounters Date Type Specialty Care Team Description 05/20/2023 Imaging Radiology 05/25/2023 Office Visit Podiatry Angeles Arciniega, MERLY [address] [place] [address] 06/01/2023 Office Visit Family Medicine Kerline Sotelo DO [address] [place] [address] 07/16/2023 Imaging Radiology 08/26/2023 Imaging Radiology 08/26/2023 Imaging Radiology 09/02/2023 Office Visit Vascular Surgery Erwin Olsen MD [address] [place] [address] 09/24/2023 Office Visit Dermatology Arabella Motta PA-C [address] [place] [address] [place] [address] 10/19/2023 Office Visit Cardiology Chele Alvarenga PA-C [address] [place] [id number] Scheduled Procedures Name Priority Associated Diagnoses Date/Ti [...] this encounter Medical Devices Implanted Type Area Home Appraiser Device Identifier Shelf Expiration Date Model / Serial / Lot Graft Stent Viab [id number] - [id number] Implanted:Qty : 1 on 05/01/2014 [place] [facility] [place] [employer] 03/09/2017 [id number] / / [id number] Stent Complete Ut 6x60 - [id number] Implanted:Qty : 1 on 07/23/2016 by Erwin Olsen MD [place] [facility] [place]: Popliteal Artery [employer] : VASCULAR 02/25/2018 [id number] / / [id number] Graft Stent Viab [id number] - [id number] - [id number] Implanted:Qty : 1 on 01/12/2017 by Erwin Olsen MD [place] [facility] [place] Right: [employer]FA [employer] 10/01/2019 [id number] 02A / [id number] / Stent Peripheral 7 Diam 150x20 - [id number] Implanted:Qty : 1 on 09/01/2019 by Erwin Olsen MD [place] [facility] [place]: SFA [employer] : VASCULAR [id number] 01/12/2022 [id number] -020-150 / / [id number] Device Vasc Cls Cadn Mynx6/7fr - [id number] Implanted:Qty : 1 on 02/21/2022 by Erwin Olsen MD at [place] [facility] [place] CARDIOVASCULAR DYNAMICS [id number] 01/07/2023 [id number] / / [id number] documented as of this encounter Visit Diagnoses Diagnosis Examination following surgery- Primary Follow-up examination, following unspecified surgery Osteomyelitis of second toe of left foot (HCC) documented in this encounter Advance Directives [...] the patient have Health Care Power of Paralegal Secretary? No Care Teams Industrial Insulator Relationship Specialty Start Date End Date Kerline Sotelo, DO [address] [facility] [place] [address] PCP - General Family Medicine 03/29/23 documented as of this encounter
--- OUTSIDE RECORDS SUMMARY | 2023-10-21 00:28 | External Medical Summary | Summary of Care ---
Author Name Unknown Organization [facility] Address [address] [place] [address] Phone [phone] Care Team Providers Care Anthropological Linguist Name Role Phone Kerline Mayen DO Primary Care Provider Reason for Visit * Reason Comments Medication Refill Encounter Details Date Type Department Care Team Description 05/18/2023 Refill Family Practice [address] [place] [address] [place] [id number] Kerline Mayen DO [address] [place] [address] ARRIAGA (dyspnea on exertion); Shortness of breath Allergies No known active allergiesdocumented as of this encounter (statuses as of 05/19/2023) Medications Medication Sig Dispensed Refills Start Date [...] 90 Tablet 3 02/02/2023 02/02/20 24 Active Gabapentin 100 MG Oral Capsule (Neurontin)Indicati ons:Sensory neuropathy TAKE ONE CAPSULE BY MOUTH THREE TIMES A DAY -- IN THE MORNING, AT NOON AND BEFORE BEDTIME 90 Capsule 01/06/2023 01/06/20 24 Active hydrALAZINE HCl 50 MG [...] MOUTH AT BEDTIME 180 Capsule 3 09/25/2022 09/25/19 24 Active Lisinopril 40 MG Oral Tablet TAKE ONE TABLET BY MOUTH EVERY DAY IN THE MORNING 90 Tablet 2 09/25/2022 09/25/19 24 Active Additional Information Patient taking differently: 20 mg, Reported on 02/18/2023 Clopidogrel Bisulfate 75 MG Oral Tablet (pLAVix)Indications :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 30 Capsule 5 05/19/2023 Active Pantoprazole Sodium 40 MG Oral Tablet Delayed Release (Protonix)Indicatio ns:ARRIAGA (dyspnea on exertion),Shortness of breath TAKE ONE TABLET BY MOUTH EVERY EVENING 100 Tablet 1 10/27/2022 05/18/20 23 Discontinu ed(Refill) documented as of this encounter (statuses as of 05/19/2023) Active Problems Problem Noted Date Cardiac asthma 09/19/2022 Diabetes mellitus 09/01/2022 Dyslipidemia, goal LDL below 70 09/01/19 23 Renal osteodystrophy 09/01/2022 Multiple thyroid nodules 09/01/2022 Vitreous hemorrhage of right eye 023 History of amputation of hallux 09/01/19 23 Chronic kidney disease, stage 4 (severe) 03/07/2022 Secondary hyperparathyroidism of renal o rigin 03/07/2022 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 [...] bilateral 05/28/2020 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[place] coronary artery without angina pectoris 05/28/2020 Diabetes [...] as of this encounter (statuses as of 05/19/2023) Resolved Problems Problem Noted Date Resolved Date [...] as of this encounter (statuses as of 05/19/2023) Immunizations Name Administration Dates Next Due COVID-19 Whole Virus, Rollins Vac, 2-Dose Series ([employer] 06/10/2021,11/08/2020,10/08/2020 Pneumococcal Polysaccharide PPV23 (Pneumovax) 05/19/2013 [...] encounter Miscellaneous Notes * Telephone Encounter - Bret Velázquez RP - 05/19/2023 1:07 PM EDTSigned Prescriptions: Disp Refills Pantoprazole Sodium 40 MG Oral Tablet Kassandra*100 Ta*3 Sig: TAKE ONE TABLET BY MOUTH EVERY EVENINGAuthorizing Provider: KERLINE MAYEN User: BRET VELÁZQUEZ NN documented in this encounter Plan of Treatment Upcoming Encounters Date Type Specialty Care Team Description 05/20/2023 Imaging Radiology 05/25/2023 Office Visit Podiatry Angeles [facility]ciniega DPM [address] [facility] [address] 06/01/2023 Office Visit Family Medicine Kerline Mayen DO [address] [place] [address] 07/16/2023 Imaging Radiology 08/26/2023 Imaging Radiology 08/26/2023 Imaging Radiology 09/02/2023 Office Visit Vascular Surgery Erwin Olsen MD [address] [place], [place] [address] 09/24/2023 Office Visit Dermatology Arabella Motta PA-C [address] [place] [address] [place] [address] 10/19/2023 Office Visit Cardiology Chele Alvarenga PA-C [address] [place] [address] Scheduled Procedures Name Priority Associated Diagnoses Date/Ti [...] this encounter Medical Devices Implanted Type Area Supervisor Telephone Information Device Identifier Shelf Expiration Date Model / Serial / Lot Graft Stent Viab [id number] - [id number] Implanted:Qty : 1 on 05/01/2014 at [place] [facility] [place] Left: [employer] 03/09/2017 [id number] / / [id number] Stent Complete Sc 6x60 - [id number] Implanted:Qty : 1 on 07/23/2016 by Erwin Olsen MD at OR [facility] [place] Left: Popliteal Artery [employer] : VASCULAR 02/25/2018 [id number] / / [id number] Graft Stent Viab 3hrf5ol - [id number] - [id number] Implanted:Qty : 1 on 01/12/2017 by Erwin Olsen MD at OR [facility] [place] Right: [employer]FA [employer] 10/01/2019 [id number] / [id number] / Stent Peripheral 7 Diam 150x20 - [id number] Implanted:Qty : 1 on 09/01/2019 by Erwin Olsen MD at OR [facility] [place] Left: SFA [employer] : VASCULAR [id number] 01/12/2022 [id number] -020-150 / / [id number] Device [facility] Cls Cadn Mynx6/7fr - [id number] Implanted:Qty : 1 on 02/21/2022 by Erwin Olsen MD at OR [facility] [place] CARDIOVASCULAR DYNAMICS [id number] 01/07/2023 [id number] / / [id number] documented as of this encounter Visit Diagnoses Diagnosis ARRIAGA (dyspnea on exertion) Other dyspnea and respiratory abnormality Shortness of breath documented in this encounter Advance Directives Latest [...] the patient have Health Care Power of Funds Development Director? No Care Teams Anthropological Linguist Relationship Specialty Start Date End Date Kerline Mayen, DO [address] [place] [address] PCP - General Family Medicine 03/29/23 documented as of this encounter
--- OUTSIDE RECORDS SUMMARY | 2023-10-21 00:28 | External Medical Summary | Summary of Care ---
Author Name Unknown Organization [facility] Address [address] [place] [address] Phone [phone] Care Team Providers Care Nanotechnology Engineering Technician Name Role Phone Kerline Sotelo Primary Care Provider + [phone] Reason for Visit * Reason Onset Date Comments case management 05/22/2023 CKD CM attempt t o contact Encounter Details Date Type Department Care Team Description 05/22/2023 Wood Finisher Telephone Care Coordination [address] [place] [address] Suzie Quintero, quality management coordinator (CKD CM attempt to contact) Allergies No known active allergiesdocumented as of this encounter (statuses as of 05/22/2023) Medications Medication Sig Dispensed Refills Start Date End Date Status ASPIRIN LOW DOSE 81 MG PO TABSIndications:Othe r specified prophylactic or treatment measure 1 TABLET DAILY 30 Tab 11 05/19/2013 Active Blood Glucose Monitoring Suppl (ONETOUCH VERIO) w/Device KITIndications:[place] corwin glucose Use up to 4 times [...] 75 MG Oral Tablet (pLAVix)Indications: 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) [...] as of this encounter (statuses as of 05/22/2023) Active Problems Problem Noted Date Cardiac asthma 09/19/2022 Diabetes mellitus 09/01/2022 Dyslipidemia, goal LDL below 70 09/01/19 23 Renal osteodystrophy 09/01/2022 Multiple thyroid nodules 09/01/2022 Vitreous hemorrhage of right eye 023 History of amputation of hallux 09/01/19 Chronic kidney disease, stage 4 (severe) 03/07/2022 Secondary hyperparathyroidism of renal o rigin 03/07/2022 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 [...] bilateral 05/28/2020 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[place] coronary artery without angina pectoris 05/28/2020 Diabetes [...] as of this encounter (statuses as of 05/22/2023) Resolved Problems Problem Noted Date Resolved Date [...] as of this encounter (statuses as of 05/22/2023) Immunizations Name Administration Dates Next Due COVID-19 Whole Virus, Rollins Vac, 2-Dose Series ([employer]) 06/10/2021,11/08/2020,10/08/2020 Pneumococcal Polysaccharide PPV23 (Pneumovax) 05/19/2013 SEASONAL [...] Encounter - Suzie Quintero RN - 05/22/2023 4:57 PM EDT CKD CM Spoke with pt briefly, he indicates that he is unable to afford Valtessa. Discussed PACE program with him, he is unsure if he would qualify as he lives with his ex and they may take her income also, but she does not give him any financial support. Sent message to pharmacy reimbursement to see if there are any programs available. Attempted to call pt back. No answer. Follow-up Routine Attempted Phone Call First Attempt Call Outcome Left Voicemail/Message Plan To attempt another outreach Suzie Quintero RN Kidney Transitions Specialist CKD Wood Finisher documented in this encounter Plan of Treatment Upcoming Encounters Date Type Specialty Care Team Description 05/25/2023 Office Visit Podiatry Angeles Aricniega DPM [address] [facility] [place] [address] 06/01/2023 Office Visit [facility] Medicine Kerline Sotelo DO [address] [place] [address] 06/01/2023 Office Visit [facility], Pharmacist [address] [place] [address] 07/16/2023 Imaging Radiology 08/26/2023 Imaging Radiology 08/26/2023 Imaging Radiology 09/02/2023 Office Visit [facility] [address] [facility] [address] 09/24/2023 Office Visit Dermatology Arabella Motta PA-C [address] [place] [address] [place] [address] 10/19/2023 Office Visit Cardiology Chele Alvarenga PA-C [address] [place] [address] [address] Scheduled Procedures Name Priority Associated Diagnoses Date/Ti [...] this encounter Medical Devices Implanted Type Area Bargain Table Clerk Device Identifier Shelf Expiration Date Model / Serial / Lot Graft Stent Viab 4gof4dp - [id number] Implanted:Qty : 1 on 05/01/2014 at OR [facility] [place] Left: SFA [employer] 03/09/2017 [id number] / / [id number] Stent Complete Sc 6x60 - [id number] Implanted:Qty : 1 on 07/23/2016 by Erwin Olsen MD at OR [facility] [place] Left: Popliteal Artery [employer] : VASCULAR 02/25/2018 [id number] / / [id number] Graft Stent Viab 2gpm6ru - [id number] - [id number] Implanted:Qty : 1 on 01/12/2017 by Erwin Olsen MD at OR [facility] [place] Right: SFA [employer] 10/01/2019 [id number] / [id number] / Stent Peripheral 7 Diam 150x20 - [id number] Implanted:Qty : 1 on 09/01/2019 by Erwin Olsen MD at OR [facility] [place] Left: SFA [employer] : VASCULAR [id number] 01/12/2022 [id number] -020-150 / / [id number] Device [facility] Cls Cadn Mynx6/7fr - [id number] Implanted:Qty : 1 on 02/21/2022 by Erwin Olesn MD at OR [facility] [place] CARDIOVASCULAR DYNAMICS [id number] 01/07/2023 [id number] / / [id number] documented as of this encounter Advance Directives [...] the patient have Health Care Power of Assistant Case Manager? No Care Teams Nanotechnology Engineering Technician Relationship Specialty Start Date End Date Kerline Sotelo, DO [address] [place] [address] PCP - General Family Medicine 03/29/23 documented as of this encounter
--- OUTSIDE RECORDS SUMMARY | 2023-10-21 00:28 | External Medical Summary | Summary of Care ---
Author Name Unknown Organization [facility] Address [address] [place] [address] Phone [phone] Care Team Providers Care Switch Crew Supervisor Name Role Phone MarleneKerline chinchilla Primary Care Provider + [phone] Reason for Visit * Reason Comments Medication Refill Encounter Details Date Type Department Care Team Description 05/08/2023 Refill Nephrology, Roscoe Dix [address] [facility] [place] [address] Lobo Patel MD [address] [facility] [place] [address] Hypertensive kidney disease with stage 3b chronic kidney disease (HCC) Allergies No known active allergiesdocumented as of this encounter (statuses as of 05/10/2023) Medications Medication Sig Dispensed Refills Start Date End Date Status ASPIRIN LOW DOSE 81 MG PO TABSIndications:Othe r specified prophylactic or treatment measure 1 TABLET DAILY 30 Tab 11 05/19/2013 Active Blood Glucose Monitoring Suppl (ONETOUCH VERIO) w/Device KITIndications:[place] corwin glucose Use up to 4 times [...] EVERY MORNING 90 Tablet 11/26/2022 4 Active Insulin Pen Needle 31G [...] 75 MG Oral Tablet (pLAVix)Indications: 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) [...] as of this encounter (statuses as of 05/10/2023) Active Problems Problem Noted Date Cardiac asthma 09/19/2022 Diabetes mellitus 09/01/2022 Dyslipidemia, goal LDL below 70 09/01/19 23 Renal osteodystrophy 09/01/2022 Multiple thyroid nodules 09/01/2022 Vitreous hemorrhage of right eye 023 History of amputation of hallux 09/01/19 23 Chronic kidney disease, stage 4 (severe) 03/07/2022 Secondary hyperparathyroidism of renal o rigin 03/07/2022 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 [...] bilateral 05/28/2020 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[place] coronary artery without angina pectoris 05/28/2020 Diabetes [...] as of this encounter (statuses as of 05/10/2023) Resolved Problems Problem Noted Date Resolved Date [...] as of this encounter (statuses as of 05/10/2023) Immunizations Name Administration Dates Next Due COVID-19 Whole Virus, Rollins Vac, 2-Dose Series ([employer]) 06/10/2021,11/08/2020,10/08/2020 Pneumococcal Polysaccharide PPV23 (Pneumovax) 05/19/2013 SEASONAL [...] Telephone Encounter - Lobo Patel MD - 05/10/2023 3:43 PM EDTSigned Prescriptions: Disp Refills Veltassa 8.4 GM Oral Packet (Patiromer Sor*30 Each5 Sig: Mix 1 packet (8.4g) in water and drink the morning. Authorizing Provider: LOBO PATEL * Telephone Encounter - Leonela Burleson RN - 05/08/2023 4:02 PM EDTPending Prescriptions: Disp Refills Veltassa 8.4 GM Oral Packet (Patiromer Sor*30 Each5 Sig: Mix 1 packet (8.4g) in water and drink the morning. * Telephone Encounter - Leonela Burleson RN - 05/08/2023 4:01 PM EDT Prescription request received from pharmacy pending. Please authorize. Last OV 04/10/23 documented in this encounter Plan of Treatment Upcoming Encounters Date Type Specialty Care Team Description 05/14/2023 Office Visit Podiatry Angelse Arciniega, DPM [address] [place] [address] 05/20/2023 Imaging Radiology 06/01/2023 Office Visit Family Medicine Kerline Sotelo DO [address] [place] [address] 07/16/2023 Imaging Radiology 08/26/2023 Imaging Radiology 08/26/2023 Imaging Radiology 09/02/2023 Office Visit Vascular Surgery Erwin Olsen MD [address] [place] [address] 09/24/2023 Office Visit Dermatology Arabella Motta PAFatimah [address] [place] [address] [place] [address] 10/19/2023 Office Visit Cardiology Chele Alvarenga PA-C [address] [place] [address] Scheduled Procedures Name Priority Associated Diagnoses Date/Ti [...] this encounter Medical Devices Implanted Type Area Farm Mortgage Agent Device Identifier Shelf Expiration Date Model / Serial / Lot Graft Stent Viab 8cjo5ov - [id number] Implanted:Qty : 1 on 05/01/2014 at OR [facility] [place] Left: SFA [employer] 03/09/2017 [id number] / / [id number] Stent Complete Sc 6x60 - [id number] Implanted:Qty : 1 on 07/23/2016 by Erwin Olsen MD at OR [facility] [place] Left: Popliteal Artery [employer] : VASCULAR 02/25/2018 [id number] / / [id number] Graft Stent Viab 3vnx4fg - [id number] - [id number] Implanted:Qty : 1 on 01/12/2017 by Erwin Olsen MD at OR [facility] [place] Right: SFA [employer] 10/01/2019 [id number] 02A / [id number] / Stent Peripheral 7 Diam 150x20 - [id number] Implanted:Qty : 1 on 09/01/2019 by Erwin Olsen MD at OR [facility] [place] Left: SFA [employer] : VASCULAR [id number] 01/12/2022 QYN57-53 -020-150 / / [id number] Device Vasc Cls Cadn Mynx6/7fr - [id number] Implanted:Qty : 1 on 02/21/2022 by Erwin Olsen MD at OR [facility] [place] CARDIOVASCULAR DYNAMICS [id number] 01/07/2023 [id number] / / [id number] documented as of this encounter Visit Diagnoses Diagnosis Hypertensive kidney disease with stage 3b chronic kidney disease (HCC) documented in this encounter Advance Directives [...] the patient have Health Care Power of [place]razer Furnace? No Care Teams Switch Crew Supervisor Relationship Specialty Start Date End Date Kerline Sotelo, DO [address] [facility] [place] [address] PCP - General Family Medicine 03/29/23 documented as of this encounter
--- OUTSIDE RECORDS SUMMARY | 2023-10-21 00:28 | External Medical Summary | Summary of Care ---
Author Name Unknown Organization [facility] Address [address] [place] [address] Phone [phone] Care Team Providers Care Administrative Judge Name Role Phone MarleneKerline chinchilla Ludy CASTELLANO Primary Care Provider + [phone] Reason for Visit * Reason Onset Date Comments Medication Refill 05/18/2023 Encounter Details Date Type Department Care Team Description 05/18/2023 Refill Nephrology, Roscoe Gill [address] [place] [address] Lobo Patel MD [address] [place] [address] Hypertensive kidney disease with stage 3b chronic [...] AND BEFORE BEDTIME 90 Capsule 5 01/06/2023 01/06/20 24 Active hydrALAZINE HCl 50 [...] ONCE DAILY 30 mL 3 11/20/2022 11/20/19 24 Active Pantoprazole Sodium 40 MG Oral Tablet Delayed Release (Protonix)Indicatio ns:ARRIAGA (dyspnea on exertion),Shortness of breath TAKE ONE TABLET BY MOUTH EVERY EVENING 100 Tablet 1 10/27/2022 10/27/19 24 Active Glucose Blood In Vitro Strip [...] 75 MG Oral Tablet (pLAVix)Indications :Atherosclerosis of [place] arteries of the extremities with ulceration [...] the morning. 30 Each 5 05/10/2023 Active Calcitriol 0.25 MCG Oral Capsule (Rocaltrol)Indicati ons:Hypertensive kidney disease with stage 3b chronic kidney disease (HCC) Take 1 Capsule by mouth in the morning. 30 Capsule 5 05/19/2023 Active Calcitriol 0.25 MCG Oral Capsule (Rocaltrol)Indicati ons:Hypertensive kidney disease with stage 3b chronic kidney disease (HCC) Take 1 Capsule by mouth in the morning. 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 Authorizing Provider: LOBO PATEL * Telephone Encounter - Leonela Burleson RN - 05/18/2023 4:17 PM EDTPending Prescriptions: Disp Refills Calcitriol 0.25 MCG Oral Capsule (Rocaltro*30 Cap*5 Sig: Take 1 Capsule by mouth in the morning. * Telephone Encounter - Leonela Burleson RN - 05/18/2023 4:15 PM EDT Prescription request received from pharmacy pending. Please authorize. Last OV 04/10/23 Next OV not yet scheduled. documented in this encounter Plan of Treatment Upcoming Encounters Date Type Specialty Care Team Description 05/20/2023 Imaging Radiology 05/25/2023 Office Visit Podiatry Angeles Arciniega, DPM [address] [facility] [place] [address] 06/01/2023 Office Visit Family Medicine Kerline Sotelo, DO [address] [place] [address] 07/16/2023 Imaging Radiology 08/26/2023 Imaging Radiology 08/26/2023 Imaging Radiology 09/02/2023 Office Visit Vascular Surgery Erwin Olsen MD [address] [place] [address] 09/24/2023 Office Visit Dermatology Arabella Motta PA-C [address] [place] [address] [place] [address] 10/19/2023 Office Visit Cardiology Chele Alvarenga PA-C [address] [place] [address] [address] Scheduled Procedures Name Priority Associated Diagnoses Date/Ti [...] this encounter Medical Devices Implanted Type Area Pipelines Supervisor Device Identifier Shelf Expiration Date Model / Serial / Lot Graft Stent Viab 2hnq2bc - [id number] Implanted:Qty : 1 on 05/01/2014 at OR [facility] [place] Left: SFA [employer] 03/09/2017 [id number] / / [id number] Stent Complete [place] 6x60 - [id number] Implanted:Qty : 1 on 07/23/2016 by Erwin Olsen MD at OR [facility] [place] Left: Popliteal Artery [employer] : VASCULAR 02/25/2018 [id number] / / [id number] Graft Stent Viab 8ppx1ag - [id number] - [id number] Implanted:Qty : 1 on 01/12/2017 by Erwin Olsen MD at OR [facility] [place] Right: SFA [employer] 10/01/2019 [id number] 02A / [id number] / Stent Peripheral 7 Diam 150x20 - [id number] Implanted:Qty : 1 on 09/01/2019 by Erwin Olsen MD at OR [facility] [place] Left: SFA [employer] : VASCULAR [id number] 01/12/2022 VCV08-51 -020-150 / / [id number] Device Vasc Cls Cadn Mynx6/7fr - [id number] Implanted:Qty : 1 on 02/21/2022 by Erwin Olsen MD at OR [facility] [place] CARDIOVASCULAR DYNAMICS [id number] 01/07/2023 [id number] / / [id number] documented as of this encounter Visit Diagnoses [...] the patient have Health Care Power of Mixing Technician? No Care Teams Administrative Judge Relationship Specialty Start Date End Date Kerline Sotelo, DO [address] [place] [facility] [address] PCP - General Family Medicine 03/29/23 documented as of this encounter
--- OUTSIDE RECORDS SUMMARY | 2023-10-21 00:28 | External Medical Summary | Summary of Care ---
Author Name Unknown Organization [facility] Address [address] [place] [address] Phone [phone] Care Team Providers Care Nutrition Worker Name Role Phone Kerline Sotelo Primary Care Provider + [phone] Reason for Visit * Reason Comments Nutritional Services Documentation Encounter Details Date Type Department Care Team Description 05/21/2023 Nutrition Services Nutrition Services [address] [facility] [place] [address] [place] [address] Mary Rizzo RDN [address] [address] Allergies No known active allergiesdocumented as of this encounter (statuses as of 05/21/2023) Medications Medication Sig Dispensed Refills Start Date End Date Status ASPIRIN LOW DOSE 81 MG PO TABSIndications:Othe r specified prophylactic or treatment measure 1 TABLET DAILY 30 Tab 11 05/19/2013 Active Blood Glucose Monitoring Suppl (ONETOUCH VERIO) w/Device KITIndications:[place] corwin glucose Use up to 4 times [...] 75 MG Oral Tablet (pLAVix)Indications: 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) [...] as of this encounter (statuses as of 05/21/2023) Active Problems Problem Noted Date Cardiac asthma 09/19/2022 Diabetes mellitus 09/01/2022 Dyslipidemia, goal LDL below 70 09/01/19 23 Renal osteodystrophy 09/01/2022 Multiple thyroid nodules 09/01/2022 Vitreous hemorrhage of right eye 023 History of amputation of hallux 09/01/19 Chronic kidney disease, stage 4 (severe) 03/07/2022 Secondary hyperparathyroidism of renal o rigin 03/07/2022 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 Patient did not answer -- left a message requesting a call to [address] if he had any nutritional questions or would like to set up a follow up appointment. Mary Rizzo RDN, RN, [facility] Marine Railway Operator Specialist [address] documented in this encounter Plan of Treatment Upcoming Encounters Date Type Specialty Care Team Description 05/25/2023 Office Visit Podiatry Angeles Arciniega DPM [address] [place] [address] 06/01/2023 Office Visit Family Medicine Kerline Sotelo, [address] [place] [address] 07/16/2023 Imaging Radiology 08/26/2023 Imaging Radiology 08/26/2023 Imaging Radiology 09/02/2023 Office Visit [facility] [address] [facility] [address] 09/24/2023 Office Visit Dermatology Arabella Motta PA-C [address] [place] [address] [place] [address] 10/19/2023 Office Visit Cardiology Chele Alvarenga PA-C [address] [place] [address] Scheduled Procedures Name Priority Associated Diagnoses Date/Ti [...] this encounter Medical Devices Implanted Type Area Maintenance Shop Clerk Device Identifier Shelf Expiration Date Model / Serial / Lot Graft Stent Viab 3xee4bo - [id number] Implanted:Qty : 1 on 05/01/2014 [place] [facility] [place] SFA [employer] 03/09/2017 [id number] 2 / / [id number] Stent Complete Sc 6x60 - [id number] Implanted:Qty : 1 on 07/23/2016 by Erwin Olsen [place] [facility] [place]: Popliteal Artery [employer] : VASCULAR 02/25/2018 [id number] / / [id number] Graft Stent Viab 6flr9ll - [id number] - [id number] Implanted:Qty : 1 on 01/12/2017 by Erwin Olsen MD [place] [facility] Right: SFA [employer] 10/01/2019 [id number] 02A / [id number] / Stent Peripheral 7 Diam 150x20 - [id number] Implanted:Qty : 1 on 09/01/2019 by Erwin Olsen MD [place] [facility] [place]: SFA [employer] : VASCULAR [id number] 01/12/2022 YCI29-67 -020-150 / / [id number] Device Vasc Cls Cadn Mynx6/7fr - [id number] Implanted:Qty : 1 on 02/21/2022 by Erwin Olsen MD [place] [facility] CARDI[employer]ASCULAR DYNAMICS [id number] 01/07/2023 [id number] / / [id number] documented as of this encounter Advance Directives [...] the patient have Health Care Power of Men'S Furnishings Salesperson? No Care Teams Nutrition Worker Relationship Specialty Start Date End Date Kerline Sotelo DO [address] [place] [address] PCP - General Family Medicine 03/29/23 documented as of this encounter
--- OUTSIDE RECORDS SUMMARY | 2023-10-21 00:28 | External Medical Summary | Summary of Care ---
Author Name Unknown Organization [facility] Address [address] [place] [address] Phone [phone] Care Team Providers Care Air Surveillance Operator Name Role Phone Deepak Kerlinezully [place] DO Primary Care Provider + [phone] Reason for Visit * Reason Comments Post-Op L toe Encounter Details Date Type Department Care Team Description 05/25/2023 Office Visit Podiatry [facility] [address] [facility] [place] [address] Angeles Arciniega DPM [address] [facility] [place] [address] Examination following surgery*; Type 2 diabetes mellitus with hemoglobin A1c goal of less than 7.0% ([facility]); PAD (peripheral artery disease) ([facility]); Osteomyelitis of third toe of left foot ([facility]) Allergies No known active allergiesdocumented as of this encounter (statuses as of 05/25/2023) Medications Medication Sig Dispensed Refills Start Date End Date Status ASPIRIN LOW DOSE 81 MG PO TABSIndications:Othe r specified prophylactic or treatment measure 1 TABLET DAILY 30 Tab 11 05/19/2013 Active Blood Glucose Monitoring Suppl (ONETOUCH VERIO) w/Device KITIndications:Sizerock corwin glucose Use up to 4 times [...] 75 MG Oral Tablet (pLAVix)Indications: 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) [...] as of this encounter (statuses as of 05/25/2023) Active Problems Problem Noted Date Cardiac asthma 09/19/2022 Diabetes mellitus 09/01/2022 Dyslipidemia, goal LDL below 70 09/01/19 23 Renal osteodystrophy 09/01/2022 Multiple thyroid nodules 09/01/2022 Vitreous hemorrhage of right eye 023 History of amputation of hallux 09/01/19 23 Chronic kidney disease, stage 4 (severe) 03/07/2022 Secondary hyperparathyroidism of renal o rigin 03/07/2022 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 [...] bilateral 05/28/2020 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[place] coronary artery without angina pectoris 05/28/2020 Diabetes [...] as of this encounter (statuses as of 05/25/2023) Resolved Problems Problem Noted Date Resolved Date [...] as of this encounter (statuses as of 05/25/2023) Immunizations Name Administration Dates Next Due COVID-19 Whole Virus, Rollins Vac, 2-Dose Series (Glow) 06/10/2021,11/08/2020,10/08/2020 Pneumococcal Polysaccharide PPV23 (Pneumovax) 05/19/2013 SEASONAL [...] Progress Notes * Angeles Arciniega DPM - 05/25/2023 10:41 AM EDT Podiatry Post-Op Note [facility] Name: Miguel Heller : 1955 Date: 05/25/2023 POST-OP VISIT: #2 DATE OF SURGERY: 05/06/2023 PROCEDURE: Left 2nd toe amputation SUBJECTIVE: Patient presents today for follow up of the above mentioned procedure. Doing well. No complaints ofpain. Has been showering as instructed and using a dry dressing. Swelling resolved. Using his post-op shoe. Incision well coapted. Weightbearing Status: Left Lower Extremity: weightbearing Right Lower Extremity: weightbearing Assistive Device: None Post-Op Related Medications: pain medications: OTC PRN OBJECTIVE: Dressing: Clean, dry and intact. Incision is well coapted with sutures noted and removed. No active signs of infection. No dehiscence. Edema is controlled. DIAGNOSTIC STUDIES: None ASSESSMENT: S/p 2nd toe amputation, left PLAN: - Pt doing well. Incision looks great. Swelling controlled and no active signs of infection. Sutures removed. - Continue with showering and dry dressing. No soaking. No ointment. - Ok to walk in a normal shoe - OTC pain medication PRN - Pt to RTC PRN. Offered to see him regularly for nail trimming, however, pt would like to call when needed. Instructed to call with any problems or questions. Angeles Arciniega DPM documented in this encounter Nursing Notes * Cathy Herrera LPN - 05/25/2023 10:33 AM EDT Pt presents for post op visit #2 Left 2nd toe amputation 05/06/2023. Feels well, wearing post op shoe. documented in this encounter Plan of Treatment Upcoming Encounters Date Type Specialty Care Team Description 06/01/2023 Office Visit Family Medicine Kerline Sotelo, DO [address] [place] [address] 06/01/2023 Office Visit [facility], Pharmacist [address] [facility] [address] [place] [address] 07/16/2023 Imaging Radiology 08/26/2023 Imaging Radiology 08/26/2023 Imaging Radiology 09/02/2023 [facility] Visit [facility] [address] [facility] [id number] 09/24/2023 Office Visit Dermatology Arabella Motta PA-C [address] [place] [address] [place] [address] 10/19/2023 Office Visit Cardiology Chele Alvarenga PA-C [address] [facility] [place] [address] Scheduled Procedures Name Priority Associated Diagnoses [...] this encounter Medical Devices Implanted Type Area Visual Developer Device Identifier Shelf Expiration Date Model / Serial / Lot Graft Stent Viab [id number] - [id number] Implanted:Qty : 1 on 05/01/2014 [place] [facility] [place]: SFA [employer] 03/09/2017 [id number] / / [id number] Stent Complete Nm 6x60 - [id number] Implanted:Qty : 1 on 07/23/2016 by Erwin Olsen MD [place] [facility] [place] Left: Popliteal Artery [employer] : VASCULAR 02/25/2018 [id number] / / [id number] Graft Stent Viab [id number] - [id number] - [id number] Implanted:Qty : 1 on 01/12/2017 by Erwin Olsen MD at [place] [facility] [place] Right: SFA [employer] 10/01/2019 [id number] / [id number] / Stent Peripheral 7 Diam 150x20 - [id number] Implanted:Qty : 1 on 09/01/2019 by Erwin Olsen MD [place] [facility] [place]: SFA [employer] : VASCULAR [id number] 01/12/2022 [id number] / / [id number] Device Vasc Cls Cadn Mynx6/7fr - [id number] Implanted:Qty : 1 on 02/21/2022 by Erwin Olsen MD at [place] [facility] [place] [employer] [id number] 01/07/2023 [id number] / / [id number] documented as of this encounter Visit Diagnoses Diagnosis Examination following surgery- Primary Follow-up examination, following unspecified surgery Type 2 diabetes mellitus with hemoglobin A1c goal of less than 7.0% (HCC) PAD (peripheral artery disease) (HCC) Peripheral vascular disease, unspecified Osteomyelitis of third toe of left foot (HCC) documented in [...] the patient have Health Care Power of Saw Setter? No Care Teams Air Surveillance Operator Relationship Specialty Start Date End Date Kerline Sotelo, DO [address] [place] [address] PCP - General Family Medicine 03/29/23 documented as of this encounter
--- OUTSIDE RECORDS SUMMARY | 2023-10-21 00:28 | External Medical Summary | Summary of Care ---
Author Name Unknown Organization [facility] Address [address] [place] [address] Phone [phone] Care Team Providers Care Product Engineer Name Role Phone MarleneKerline chinchilla Ludy CASTELLANO Primary Care Provider + [phone] Reason for Visit * Auth/Cert Specialty Diagnoses / Procedures Referred By Contluis t Referred To Contact Diagnoses Toe osteomyelitis (HCC) Toe osteomyelitis (HCC) [M86.9] Procedures AMPUTATION OF TOE AMPUTATION TOE METATARSOPHALANGEAL JOINT Referral ID Status Reason Start Date Expiration Date Visits Re quested Visits Authorized [id number] Encounter Details Date Type Department Care Team Description 05/06/2023 Hospital Encounter OR [facility], Operating Room, [facility] - 4th Floor [address] [place] [address] Angeles Arciniega DPM [address] [place] [address] Allergies No known active allergiesdocumented as of this encounter (statuses as of 05/06/2023) Medications Medication Sig Dispensed Refills Start Date [...] with inhaler. 1 Each 0 3 Active Calcitriol 0.25 MCG Oral Capsule (Rocaltrol)Indicati ons:Hypertensive kidney disease with stage 3b chronic kidney disease (HCC) Take 1 Capsule by mouth in the morning. 30 Capsule 5 3 Active Melatonin 10 MG Oral Tablet [...] 90 Tablet 3 3 02/02/20 24 Active Gabapentin 100 MG Oral Capsule (Neurontin)Indicati ons:Sensory neuropathy TAKE ONE CAPSULE BY MOUTH THREE TIMES A DAY -- IN THE MORNING, AT NOON AND BEFORE BEDTIME 90 Capsule 5 3 01/06/20 24 Active hydrALAZINE HCl 50 [...] BY MOUTH EVERY MORNING 90 Tablet 3 11/26/19 24 Active Atorvastatin Calcium 40 MG Oral Tablet (Lipitor)Indication s:Other hyperlipidemia TAKE ONE TABLET BY MOUTH EVERY MORNING 90 Tablet 3 11/26/19 24 Active Insulin Pen Needle 31G X 6 MMIndications:Type 2 diabetes mellitus with hemoglobin A1c goal of less than 7.0% ([facility]) USE WITH LANTUS ONCE DAILY OR DIRECTED 300 Each 3 11/20/19 24 Active Lantus SoloStar 100 UNIT/ML Subcutaneous Solution Pen-injectorIndicat ions:Type 2 diabetes mellitus with hemoglobin A1c goal of less than 7.0% (HCC) INJECT 18 UNITS UNDER THE SKIN ONCE DAILY 30 mL 3 3 11/20/19 24 Active Pantoprazole Sodium 40 MG Oral Tablet Delayed Release (Protonix)Indicatio ns:ARRIAGA (dyspnea on exertion),Shortness of breath TAKE ONE TABLET BY MOUTH EVERY EVENING 100 Tablet 1 3 10/27/19 24 Active Glucose Blood In Vitro [...] MOUTH AT BEDTIME 180 Capsule 3 3 09/25/19 24 Active Lisinopril 40 MG Oral Tablet TAKE ONE TABLET BY MOUTH EVERY DAY IN THE MORNING 90 Tablet 2 3 09/25/19 24 Active Additional Information Patient taking differently: 20 mg, Reported on 02/18/2023 Clopidogrel Bisulfate 75 MG Oral Tablet (pLAVix)Indications :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 20 Tablet 0 3 Active Silver sulfADIAZINE 1 % External Cream (Silvadene) Apply to left foot wound daily. 50 g 1 3 05/06/20 23 Discontinued Veltassa 8.4 GM Oral Packet (Patiromer Sorbitex Calcium)Indications :Hypertensive kidney disease with stage 3b chronic kidney disease (HCC) Mix 1 packet (8.4g) in water and drink the morning. 30 Each 1 3 05/06/20 23 Discontinued documented as of this encounter (statuses as of 05/06/2023) Active Problems Problem Noted Date Cardiac asthma 09/19/2022 Diabetes mellitus 09/01/2022 Dyslipidemia, goal LDL below 70 09/01/19 23 Renal osteodystrophy 09/01/2022 Multiple thyroid nodules 09/01/2022 Vitreous hemorrhage of right eye 023 History of amputation of hallux 09/01/19 23 Chronic kidney disease, stage 4 (severe) 03/07/2022 Secondary hyperparathyroidism of renal o rigin 03/07/2022 Atherosclerosis of port lions arteries of th e extremities with ulceration [...] bilateral 05/28/2020 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port lions coronary artery without angina pectoris 05/28/2020 Diabetes [...] as of this encounter (statuses as of 05/06/2023) Resolved Problems Problem Noted Date Resolved Date [...] as of this encounter (statuses as of 05/06/2023) Immunizations Name Administration Dates Next Due COVID-19 Whole Virus, Rollins Vac, 2-Dose Series ([employer]) 06/10/2021,11/08/2020,10/08/2020 Pneumococcal Polysaccharide PPV23 (Pneumovax) 05/19/2013 Seasonal Influenza, PF, 6 mo ns & Above, IM , (Flulaval) 05/13/2021,05/28/2020,05/25/2019,08/18 Seasonal Influenza, Quadriva lent Hd (Fluzone [...] Sign Reading Time Taken Comments Blood Pressure 163/77 05/06/2023 8:30 AM EDT Pulse 73 05/06/2023 8:30 AM EDT Temperature 36.4 C (97.5 F) 05/06/2023 8:30 AM ED T Respiratory Rate 18 05/06/2023 8:30 AM EDT Oxygen Saturation 98% 05/06/2023 8:30 AM EDT Inhaled Oxygen Concentration - - Weight 91.2 kg (201 lb) 05/06/2023 6:51 AM EDT Height 180.3 cm (5' 11") 05/06/2023 6:51 AM EDT Body Mass Index 28.03 05/06/2023 6:51 AM EDT documented in this [...] No 02/21/2022 documented as of this encounter Discharge Instructions * Discharge Instr - AVS* Angeles Arciniega DPM - 05/06/2023 8:27 AM EDT Discharge Date: 05/06/2023 Your attending physician at the time of your discharge was: Angeles Arciniega DPM [address] [address] The information below provides you with the instructions and the list of medications you need to betaking following discharge from the hospital. If you have any questions, please ask before leaving.Please carry this letter with you when you see your doctor in the clinic. Diet: Previous diet Activity: As tolerated Follow Up - Return appointment(s): As scheduled. Special Instructions: Keep your foot elevated as much as possible in a lying or sitting position. This will reduce swelling. Keep your cast and/or bandages clean and dry. Ok to remove dressing in 3 days. Ok to shower, no soaking. No ointment. Pat incision dry and dress with dry dressing or large bandaid. Wear your post-operative shoe and/or cast boot as instructed. Ok to remove for sleeping. Call your doctor for any of the following: Pain not relieved by pain medication Numbness or tingling sensation in foot Fever 101 degrees or chills Persistent swelling of foot/feet Bandages get soiled, wet or fall off Foul smell from dressing, redness of ankle or foot above dressing Blueness or other discoloration of toes Excessive bleeding Inability to move toes Call your doctor with any questions or unusual occurrences. documented in this encounter Progress Notes * Angeles Arciniega DPM - 05/06/2023 8:25 AM EDT [address] [address] OUTPATIENT SURGERY DISCHARGE SUMMARY NOTE Name: Miguel Heller Location: [facility] Date: 05/06/2023 Time: 8:25 AM Surgery Date: 05/06/2023 Procedure: Procedure(s): AMPUTATION TOE METATARSOPHALANGEAL JOINT Left Surgeon: Surgeon(s): Angeles Arciniega DPM Discharge Diagnosis: Osteomyelitis, 2nd toe, left foot DM2 with neuropathy PVD After examination of this patient, I have determined he is ready for discharge to home when the patient meets criteria. Discharge instructions were given to the patient. * Angeles Arciniega DPM - 05/06/2023 7:17 AM EDT Pt seen and examined. 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 All questions answered. Discussed risks of procedure including but not limited to loss of limb, loss of life, infection, allergic reaction, rejection of material such as implant, suture or other, chronic swelling (such as chronic lymphedema), damage of blood supply, blood clots, emboli, delayed healing or poor healing, scar (such as costmetic poor, painful , keloid, or functional restrictive scar), poor healing of bone (avascular necrosis, delayed, non , or mal union), failure of procedure, failure with incision or repair of soft tissue or bone, loss or failure of hardware or implant, bleeding, hematoma, seroma, condition or disability could (stay same , change, or get worse), enlargement of (toe, foot, or ankle), condition may come back or come back different, transfer lesion, stress fracture, paralysis/paraplegia/quadriplegia, stroke/heart attack/, chronic or permanent disability, brain damage, reactionto medication or anesthesia, need for additional surgery or treatment, permanent pain such as CRPS or RSD, neuroma, callous or other developed lesion or condition, fracture or dislocation of bone or joint, swollen/stiff/shorter/elevated/limited function (toe, foot, ankle), difficulty in walking/wearing shoes/other activity, infection and or osteo, over or under correction, floppy or stiff toe, sausage toe, lack of toe purchase or extension, varus or other deformity, nerve damage or numbness. Exp lained that I cannot guarantee time with recovery as well as effect with job, life or other, need for brace or other device, need for therapy or consultation and or treatment with other specialist orpain management. documented in this encounter H&P Notes * David Carney MD - 05/06/2023 7:29 AM EDT Images from the original note were not included. HISTORY & PHYSICAL INTERVAL NOTE [facility]-[address] [address] History and Physical Update: Name: Miguel Heller Location: [place] [facility]/[place] Date: 05/06/2023 Time: 7:29 AM DATE OF HISTORY AND PHYSICAL: 04/20/2023 BP: 150 mmHg/74 mmHg (05/06/23650) Pulse: 66 (05/06/23650) Temp: 36.28 C (05/06/23650) Resp: 18 (05/06/23650) SpO2: 99 % (05/06/23650) Does patient take a beta lotus?Y See PCP notes Did patient stop anticoagulants? We will get instructions from the coagulation clinic or your PCP to manage your anticoagulation medications before your operation. Heart Exam: 04/09/2023 4:27 PM - Interface, Medical Office Professional Instructor Narrative & Impression REASON FOR STUDY: HTN CONCLUSIONS: Sinus bradycardia with occasional Premature ventricular complexes Nonspecific ST and T wave abnormality Abnormal ECG When compared with ECG of 27-OCT-2022 09:27, Premature ventricular complexes are now Present Ventricular Rate: 59 Lung Exam: clear to auscultation bilaterally IMPRESSION 1. Mild patchy interstitial opacities bases which are nonspecific and may represent interstitial pulmonary edema or chronic interstitial changes. 2. Stable cardiomegaly. Other Pertinent Physical Exam: none I have reviewed the H&P previously performed and examined the patient today. There are no new findings noted. Kerline Sotelo DO Physician Specialty: Family Medicine Progress Notes Signed Encounter Date: 04/20/2023 SUBJECTIVE: Chief Complaint Patient presents with pre-op exam HPI: Miguel Heller is a 67 year old male who presents today for pre- operative clearance. He notes no chest pain or shortness of breath. He notes that he has been stable from that standpoint. He notes no issues with anesthesia in the past. Currently a PD catheter is on hold. He will eventually need diagnostic cath but this is on hold due to dialysis issues. Pt notes that his foot is looking terrible. He notes that it is throbbing. It is getting more swollen. It hurts more than it had been. He notes that he is not getting any drainage. He notes no fevers. No sweats or chills. He is not currently on an antibiotic. He is icing it as needed. He feels thatit has progressed over the weekend. He tried to stay off of his foot as much as he could. He is using iodine and covering it with a band-aid. He is nervous about waiting until 05/07 for the surgery. PHM: Patient Active Problem List Diagnosis Code HTN, goal below 140/90 I10 Vitamin D deficiency E55.9 Thoracic aortic aneurysm ([facility]) I71.20 Family history of ischemic heart disease Z82.49 Eczema L30.9 Nodule of flexor tendon sheath M67.90 PAD (peripheral artery disease) ([facility]) I73.9 Urinary retention R33.9 BPH with obstruction/lower urinary tract symptoms N40.1, N13.8 DDD (degenerative disc disease), cervical M50.30 Diabetes mellitus with nephropathy ([facility]) E11.21 Diabetes mellitus type 2 with peripheral artery disease ([facility]) E11.51 Aortic root dilatation ([facility]) I77.810 Diabetes mellitus, insulin dependent (IDDM), controlled [id number] Type 2 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, bilateral ([facility]) E11.3313 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 I25.10 Hypertensive kidney disease with stage 3b chronic kidney disease ([facility]) I12.9, N18.32 Depression F32.A Chronic kidney disease, stage 4 (severe) ([facility]) N18.4 Secondary hyperparathyroidism of renal origin ([facility]) N25.81 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 ([facility]) I70.25 Multinodular goiter E04.2 Major depressive disorder with single episode F32.9 Type 2 diabetes mellitus with diabetic neuropathy, with long-term current use of insulin ([facility]) E11.40, Z79.4 Diabetes mellitus ([facility]) E11.9 Dyslipidemia, goal LDL below 70 E78.5 Renal osteodystrophy N25.0 Multiple thyroid nodules E04.2 Vitreous hemorrhage of right eye ([facility]) H43.11 History of amputation of hallux ([facility]) Z89.419 Cardiac asthma ([facility]) I50.1 Current Outpatient Medications Medication Sig Dispense Refill ASPIRIN LOW DOSE 81 MG PO TABS 1 TABLET DAILY 30 Tab 11 Calcitriol 0.25 MCG Oral Capsule (Rocaltrol) Take 1 Capsule by mouth in the morning. 30 Capsule 5 Furosemide 40 MG Oral Tablet (Lasix) Take 1.5 Tablets by mouth 2 times a day. 180 Tablet 3 Melatonin 10 MG Oral Tablet Take 1 [...] THE SKIN ONCE DAILY 30 mL 3 Pantoprazole Sodium 40 MG Oral Tablet Delayed Release (Protonix) TAKE ONE TABLET BY MOUTH EVERY EVENING 100 Tablet 1 Terazosin HCl 2 MG Oral Capsule TAKE [...] MOUTH TWICE A DAY 270 Tablet 1 Veltassa 8.4 GM Oral Packet (Patiromer Sorbitex Calcium) Take 8.4 g by mouth in the morning. Pleasetake 3 hours after AM meds. Should not be taken with other medications for full effectiveness.. 30 Each 1 Sodium Bicarbonate 650 MG Oral Tablet Take 2 Tablets by mouth in the morning and 2 Tablets before bedtime. 120 Tablet 11 Veltassa 8.4 GM Oral Packet (Patiromer Sorbitex Calcium) Mix 1 packet (8.4g) in water and drink themorning. 30 Each 1 Blood Glucose Monitoring Suppl (Gibberin VERIO) w/Device KIT Use up to 4 times a day E11.9 1 Kit 0 [employer] Systems[employer] DELICA LANCETS 33G MISC test blood sugars up to four times daily. ICD- 10: E11.9 100 Each 11 Vitamin D 50 MCG (2000 UT) Oral Capsule Take 6,000 Units by mouth daily. 3 capsules daily (Patient not taking: Reported on 03/30/2023) 270 Cap 3 Spacer/Aero-Holding Chambers Device Use with inhaler. (Patient not taking: Reported on 01/19/2023) 1Each 0 Insulin Pen Needle 31G X 6 MM USE WITH LANTUS ONCE DAILY OR DIRECTED 300 Each 3 Glucose Blood In Vitro Strip USE TO TEST BLOOD SUGAR FOUR TIMES A DAY 400 Strip 3 FreeStyle Juju 2 Sensor Use as directed. Every 14 days 2 Each 0 Silver sulfADIAZINE 1 % External Cream (Silvadene) Apply to left foot wound daily. (Patient not taking: Reported on 04/20/2023) 50 g 1 Current Facility-Administered Medications Medication Dose Route Frequency Provider Last Rate Last Admin Albuterol Sulfate (Proventil) (2.5 MG/3ML) 0.083% inhalation solution 2.5 mg 2.5 mg Nebulizer PRN Alphonso Foreman, DO 2.5 mg at 08/14/22 1303 Albuterol Sulfate (Proventil) (5 MG/ML) 0.5% *conc* inhalation solution 2.5 mg 2.5 mg Nebulizer PRNMtigre Foreman DO Aflibercept (Eylea) intraviteal prefilled syringe 2 mg 2 mg Intravitreal PRN Sam Vasquez, DO 2 mg at 01/07/23 1517 ROPivacaine (Naropin) inj 1.5 mg 1.5 mg Injection PRN Sam Vasquez, DO 1.5 mg at 01/07/23 1516 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) Nonproliferative diabetic retinopathy (HCC) Past Surgical History: Procedure Laterality Date AORTOGRAM ABDOMINAL-TECH ONLY 05/01/2014 IMAGING SUPERVISION & INTERPRETATION ABDOMINAL AO performed by Erwin Olsen MD at OR [facility] AORTOGRAM ABDOMINAL-TECH ONLY 09/01/2019 IMAGING SUPERVISION & INTERPRETATION ABDOMINAL AO performed by Erwin Olsen MD at OR [facility] AORTOGRAM ABDOMINAL-TECH ONLY N/A 12/16/2021 IMAGING SUPERVISION & INTERPRETATION ABDOMINAL AO performed by Erwin Olsen MD at OR [facility] AORTOGRAM ABDOMINAL-TECH ONLY 02/21/2022 IMAGING SUPERVISION & INTERPRETATION ABDOMINAL AO performed by Erwin Olsen MD at OR [facility] AORTOGRAM ABDOMINAL-TECH ONLY 01/19/2023 IMAGING SUPERVISION & INTERPRETATION ABDOMINAL AO performed by Erwin Olsen MD at OR [facility] COLONOSCOPY, DIAGNOSTIC (RECTUM) 12/13/2013 benign polyp, repeat 5 yrs/COLONOSCOPY FLEXIBLE PROXIMAL DIAGNOSTIC performed by Anoop Abernathy MD at ENDOSCOPY [facility] COLONOSCOPY, DIAGNOSTIC (RECTUM) 03/27/2016 hyperplastic polyps, diverticulosis, repeat 5 yrs/COLONOSCOPY FLEXIBLE PROXIMAL DIAGNOSTIC performed by Sanford Wood MD at ENDOSCOPY [facility] CORONARY ANGIOGRAPHY W/LEFT HEART CATH 09/07/2014 CORONARY ANGIOGRAPHY W/LEFT HEART CATH performed by Viki Bhakta MD at CARDIAC LABS [facility] EGD, FLEXIBLE, DIAGNOSTIC 03/27/2016 normal bx/ESOPHAGOGASTRODUODENOSCOPY (EGD), FLEXIBLE, TRANSORAL, DIAGNOSTIC performed by Sanford Wood MD at ENDOSCOPY [facility] FEM/POP ARTERY REVASC W/ STENT+ANGIOPLASTY 05/01/2014 FEM/POP ARTERY REVASC W/ STENT+ANGIOPLASTY performed by Erwin Olsen MD at OR [facility] FEM/POP ARTERY REVASC W/ STENT+ANGIOPLASTY Left 07/23/2016 FEM/POP ARTERY REVASC W/ STENT+ANGIOPLASTY performed by Erwin Olsen MD at OR [facility] FEM/POP ARTERY REVASC W/ STENT+ANGIOPLASTY Right 01/12/2017 FEM/POP ARTERY REVASC W/ STENT+ANGIOPLASTY performed by Erwin Olsen MD at OR [facility] FEM/POP ARTERY REVASC W/ STENT+ANGIOPLASTY Left 09/01/2019 FEM/POP ARTERY REVASC W/ STENT+ANGIOPLASTY performed by Erwin Olsen MD at OR [facility] FEM/POP ARTERY REVASC W/ANGIOPLASTY Right 09/12/2015 Drug-coated balloon angioplasty of the right superficial femoral artery. Dr. Olsen. [facility] OR. FEM/POP ARTERY REVASC W/ANGIOPLASTY Left 12/16/2021 FEM/POP ARTERY REVASC W/ANGIOPLASTY performed by Erwin Olsen MD at OR [facility] FEM/POP ARTERY REVASC W/ANGIOPLASTY Right 02/21/2022 FEM/POP ARTERY REVASC W/ANGIOPLASTY performed by Erwin Olsen MD at OR [facility] FEM/POP ARTERY REVASC W/ANGIOPLASTY Right 01/19/2023 FEM/POP ARTERY REVASC W/ANGIOPLASTY performed by Erwin Olsen MD at OR [facility] INJECTION OF EYE DRUG Left 01/18/2016 # [...] performed by Erwin Olsen MD at OR [facility] IR ARTERIOGRAM EXTREMITY BILATERAL N/A 12/16/2021 ANGIOGRAPHY EXTREMITY BILATERAL performed by Erwin Olsen MD at OR [facility] IR ARTERIOGRAM EXTREMITY BILATERAL Right 01/19/2023 ANGIOGRAPHY EXTREMITY BILATERAL performed by Erwin Olsen MD at [facility] IR ARTERIOGRAM EXTREMITY UNILATERAL 05/01/2014 IMAGING SUPERVISION & INTERPRETATION EXTREMITY UNILATERAL performed by Erwin Olsen MD at [facility] IR ARTERIOGRAM EXTREMITY UNILATERAL Left 07/23/2016 IMAGING SUPERVISION & INTERPRETATION EXTREMITY UNILATERAL performed by Erwin Olsen MD at [facility] IR ARTERIOGRAM EXTREMITY UNILATERAL Right 01/12/2017 IMAGING SUPERVISION & INTERPRETATION EXTREMITY UNILATERAL performed by Erwin Olsen MD at [facility] IR ARTERIOGRAM EXTREMITY UNILATERAL Left 09/01/2019 IMAGING SUPERVISION & INTERPRETATION EXTREMITY UNILATERAL performed by Erwin Olsen MD at [facility] IR ARTERIOGRAM EXTREMITY UNILATERAL Right 02/21/2022 IMAGING SUPERVISION & INTERPRETATION EXTREMITY UNILATERAL performed by Erwin Olsen MD at [facility] MISCELLANEOUS ORDER ([facility] ONLY) left knee ACL repair MISCELLANEOUS ORDER ([facility] ONLY) Left 01/18/2016 Eylea OS Consent signed, MISCELLANEOUS ORDER ([facility] ONLY) Right 02/20/2016 E[place]a OD Cons[address]. Dr Pedro ANDERSON ORDER ([facility] ONLY) Bilateral 04/09/2017 EYLEA CONSENT OU SIGNED; DR PEDRO ANDERSON ORDER ([facility] ONLY) Bilateral 04/06/2018 Eylea OU [...] JOINT performed by Angeles Arciniega DPM at [facility] REPAIR RUPTURED ROTATOR CUFF, ACUTE right Review of patient's allergies indicates: No Known Allergies Family History Problem Relation Age of Onset Heart disease Mother in her late 60s Diabetes Father Heart Disorder Father Fatal [place] in his mid 60s Hypertension Father No [...] fatigue, fever and unexpected weight change. Respiratory: Negative for cough, chest tightness, shortness of breath and wheezing. Cardiovascular: Negative for chest pain, palpitations and leg swelling. Gastrointestinal: Negative for abdominal pain, constipation, diarrhea, nausea and vomiting. Musculoskeletal: Positive for arthralgias. Negative for gait problem and joint swelling. Skin: Positive for wound. Negative for color change, pallor and rash. OBJECTIVE: BP 110/58 | Pulse 63 | Temp 36.4 C (97.6 F) | Wt 91.7 kg (202 lb 1.6 oz) | SpO2 98% | BMI 27.41kg/m | BSA 2.16 m PHYSICAL EXAM: Physical Exam Constitutional: General: [...] tenderness. There is no guarding. Musculoskeletal: General: Swelling and deformity present. No tenderness. Normal range of motion. Skin: General: Skin is warm and dry. Coloration: Skin is not pale. Findings: Erythema present. No rash. Neurological: Mental Status: He is alert and oriented to person, place, and time. ASSESSMENT/PLAN: (M86.9) Osteomyelitis of third toe of left foot (HCC) (primary encounter diagnosis) Plan: Clindamycin HCl 300 MG Oral Capsule, Ciprofloxacin HCl 500 MG Oral Tablet (Cipro) Pt with worsening pain and swelling of foot. Discussed with podiatry, Dr. Arciniega. She advised starting antibiotics and f/u with her next week. Rx sent. Discussed with pt. He is frustrated the surgery is not occurring sooner. Advised if he has any worsening, to proceed to ED for admission. (R09.89) Labile blood pressure (I12.9, N18.32) Hypertensive kidney disease with stage 3b chronic kidney disease (HCC) Plan: Furosemide 40 MG Oral Tablet (Lasix) Pt will remain on current regimen. Managed by nephrology. Continue with furosemide. (N18.4) Chronic kidney disease, stage 4 (severe) (HCC) Plan: Pt not yet on dialysis. Per nephro, hold off on PD catheter placement for now. Will continue to monitor. Renally dosed antibiotics today. (E11.9) Type 2 diabetes mellitus with hemoglobin A1c goal of less than 7.0% ([facility]) Plan: Pt working with MTM. Continue on current regimen. (I50.32) Chronic diastolic heart failure (HCC) Plan: Pt following with cardiology. Will eventually need diagnostic cath but currently holding off as medically managed without symptoms and given renal disease. Continue to monitor. Asymptomatic at present. Follow-up: 1 week with podiatry. 6 weeks with me Total time today including reviewing chart before the visit, pertinent labs, imaging reports, face to face time, and documentation time was 43 minutes. Kerline Sotelo DO 1726 Office Visit on 04/20/2023 Detailed Report Note shared with patient Additional Documentation Vitals: BP 110/58 Pulse 63 Temp 36.4 C (97.6 F) Wt 91.7 kg (202 lb 1.6 oz) SpO2 98% BMI 27.41 kg/m BSA 2.16 m More Vitals Flowsheets: Patient-Reported Data, Patient Information Encounter Info: Billing Info, History, Allergies, Detailed Report Orders Placed None Medication Changes Ciprofloxacin HCl 500 mg Oral Daily(AM) Clindamycin HCl 600 mg Oral TID(AM/NOON/HS) Medication List Visit Diagnoses Osteomyelitis of third toe of left foot (HCC) Labile blood pressure Hypertensive kidney disease with stage 3b chronic kidney disease (HCC) Chronic kidney disease, stage 4 (severe) ([facility]) Type 2 diabetes mellitus with hemoglobin A1c goal of less than 7.0% (HCC) Chronic diastolic heart failure (HCC) Problem List documented in this encounter Nursing Notes * Fiona Mckeon RN - 05/06/2023 9:04 AM EDT [address] [address] SameDay Surgery Discharge Note Name: Miguel Heller Date: 05/06/2023 Time: 9:04 AM Discharge Disposition: Home Responsible adult as escort home: Transport Mode: Ambulatory Accompanied by: Ivan Mckeon RN To: Car Belongings with patient: Yes Patient meets criteria to be transferred or discharged. documented in this encounter OR Notes * Operative Report Brief - Angeles Arciniega DPM - 05/06/2023 8:24 AM EDT [address] [address] OPERATIVE REPORT - BRIEF Name: Miguel Heller Date: 05/06/2023 Time: 8:24 AM Location: OR [facility] Service: Podiatry Date of Operation: 05/06/2023 Pre-op Diagnosis: Osteomyelitis, 2nd digit, left foot DM2 with neuropathy PVD Post-op Diagnosis: Same Operation: 2nd toe amputation, left foot Surgeon: Angeles Arciniega DPM Assistants: Pilar Werner DPM, PGY3 Anesthesia: 10 ml of Local anesthesia: 0.5% bupivacaine, 1% lidocaine infiltrated in the incision Drains: none Estimated Blood Loss: Minimal. IV Fluids: As per anesthesia. Urine Output: N/A Specimens/Disposition: 2nd toe, left foot- pathology Apparent Intraoperative Complications: NONE Patient Condition: stable Disposition: Post Anesthesia Care Unit Attestation: I performed the procedure documented in this encounter Plan of Treatment Upcoming Encounters Date Type Specialty Care Team Description 05/14/2023 Office Visit Podiatry Angeles Arciniega DPM [address] [address] 06/01/2023 Office Visit Family Medicine Kerline Sotelo, DO [address] [place] [address] 07/16/2023 Imaging Radiology 08/26/2023 Imaging Radiology 08/26/2023 Imaging Radiology 09/02/2023 Office Visit Vascular Surgery Erwin Olsen MD [address] [place] [address] 09/24/2023 Office Visit Dermatology Arabella Motta PA-C [address] [place] [address] [place] [address] [id number] 10/19/2023 Office Visit Cardiology Chele Alvarenga PA-C [address] [address] Pending Results Name Type Priority Associated Diagnoses Date /Time SURGICAL PATHOLOGY Pathology Routine Toe osteomyelitis (HCC) 05/06/2023 8:15 AM EDT Scheduled Orders Name Type Priority Associated Diagnoses Orde r Schedule SURGICAL PATHOLOGY Pathology Routine Toe osteomyelitis (HCC) Release Upon Ordering for 1 Occurrences starting 05/06/2023, 1 completed Scheduled Procedures Name Priority Associated Diagnoses Date/Ti me AMPUTATION TOE METATARSOPHALANGEAL JOINT Toe osteomyelitis (HCC) 05/06/2023 6:40 AM EDT COLONOSCOPY FLEXIBLE PROXIMA L DIAGNOSTIC Recall History [...] this encounter Medical Devices Implanted Type Area Button Decorating Machine Operator Device Identifier Shelf Expiration Date Model / Serial / Lot Graft Stent Viab [id number] - [id number] Implanted:Qty : 1 on 05/01/2014 at OR [facility] Left: SFA [employer] 03/09/2017 [id number] / / [id number] Stent Complete Nd 6x60 - [id number] Implanted:Qty : 1 on 07/23/2016 by Erwin Olsen MD at OR [facility] Left: Popliteal Artery [employer] : VASCULAR 02/25/2018 [id number] / / [id number] Graft Stent Viab [id number] - [id number] - [id number] Implanted:Qty : 1 on 01/12/2017 by Erwin Olsen MD at OR [facility] Right: SFA [employer] 10/01/2019 [id number] / [id number] / Stent Peripheral 7 Diam 150x20 - [id number] Implanted:Qty : 1 on 09/01/2019 by Erwin Olsen MD at OR [facility] Left: SFA [employer] : VASCULAR [id number] 01/12/2022 [id number] / / [id number] Device Vasc Cls Cadn Mynx6/7fr - [id number] Implanted:Qty : 1 on 02/21/2022 by Erwin Olsen MD at OR [facility] [employer] [id number] 01/07/2023 [id number] / / [id number] documented as of this encounter Procedures Procedure Name Priority Date/Time Associated Diagnosis Comments GLUCOSE METER, POINT OF CARE FRANDY 05/06/2023 7:12 AM EDT documented in this encounter Results * (ABNORMAL) GLUCOSE METER, POINT OF CARE (05/06/2023 7:12 AM EDT) Glucose Meter 165(H) 70 - 120 mg/dL 05/06/2023 7:15 AM EDT [facility] Blood Whole blood specimen / Unknown 05/06/2023 7:12 AM EDT 05/06/2023 7:15 AM EDT Angeles Arciniega DPM LAB POINT OF C ARE TEST DOCKED DEVICE UNSOLICITED RESULTS [facility] [address] [place] [address] documented in this encounter Visit Diagnoses Diagnosis Type 2 diabetes mellitus with diabetic neuropathy, with long-term current use of insulin (HCC)- Primary Toe osteomyelitis (HCC) Unspecified osteomyelitis, ankle and foot documented in this encounter Administered Medications Inactive Administered Medications - up to 3 most recent administrations Medication Order MAR Action Action Date Dose Rate Site ceFAZolin in dextrose (Ancef) ivpb 2 g 2 g, IV Piggyback, PREOP, 1 dose, First dose on Thu05/06/23 at 0730, Administer 60 minutes prior to skin incision, Pre-Op New Bag 05/06/2023 8:08 AM EDT 2 g 100 mL/hr New Bag 05/06/2023 7:30 AM EDT 2 g 100 mL/hr isolyte-S pH 7.4 infusion Intravenous, at 100 mL/hr, Plasma-LYTE 148, isolyte-S, and isolyte-S pH 7.4 are considered equivalent - including for MAR barcode scanning., CONTINUOUS, Starting on Thu05/06/23 at 0730, Until Thu05/06/23 at 1308, Pre-Op New Bag 05/06/2023 7:20 AM EDT 100 mL/hr sodium chloride 0.9 % flush peripheral flora 3 mL 3 mL, IV Push, QSHIFT, First dose on Thu05/06/23 at 0800, Until Discontinued, Do not flush if lock, PICC, or central line not in place; IV infusing or unable to flush., Pre-Op Given 05/06/2023 8:00 AM EDT 3 mL documented in this encounter Active and Recently Administered Medications Times are shown in EDT. Scheduled Medication Order 05/04/2023 05/05/2023 05/06/2023 ceFAZolin in dextrose (Ancef) ivpb 2 g (COMPLETED) 2 g, IV Piggyback, PREOP, 1 dose, First dose on Thu05/06/23 at 0730, Administer 60 minutes prior to skin incision, Pre-Op 0730 (New Bag - Prov ider: Erwin Ravi RN)0808 (New Bag - Provider: Erwin Ravi RN) sodium chloride 0.9 % flush peripheral flora 3 mL 3 mL, IV Push, QSHIFT, First dose on Thu05/06/23 at 0800, Until Discontinued, Do not flush if lock, PICC, or central line not in place; IV infusing or unable to flush., Pre-Op 0800 (Given - Provid er: Erwin Ravi RN) Continuous Medication Order 05/04/2023 05/05/2023 05/06/2023 isolyte-S pH 7.4 infusion Intravenous, at 100 mL/hr, Plasma-LYTE 148, isolyte-S, and isolyte-S pH 7.4 are considered equivalent - including for MAR barcode scanning., CONTINUOUS, Starting on Thu05/06/23 at 0730, Until Thu05/06/23 at 1308, Pre-Op 0720 (New Bag - Prov ider: Fiona Mckeon, RN) PRN Medication Order 05/04/2023 05/05/2023 05/06/2023 bupivacaine 5 mL, lidocaine 1 % 5 mL inj (CANCELED) ONCE PRN INTRA PROCEDURE, Starting on Thu05/06/23 at 0822, Until Thu05/06/23 at 0828, Intra-Op 0822 (Given - Provid er: Angeles Arciniega DPM) documented in this encounter Advance Directives Latest [...] the patient have Health Care Power of Air/Ocean Export Clerk? No Care Teams Product Engineer Relationship Specialty Start Date End Date Kerline Sotelo, [address] [place] [address] PCP - General Family Medicine 03/29/23 documented as of this encounter
--- OUTSIDE RECORDS SUMMARY | 2023-10-21 00:29 | External Medical Summary ---
Author Name Unknown Address Unknown Organization [id number]:[facility] [address] [facility] [address] Laboratory Report Ordering Provider Test Date Status AMANDA DIAMOND 05/04/2023 14:40:44 Final Normal: <30 mg/g creatinine< br/>High: 30-300 mg/g creatinine
Very High: >300 mg/g creatinine
Nephrotic: >2200 mg/g creatinine Observation Date Value Abnormality Reference (Units ) Status Albumin, Urine 05/04/2023 14:40:44 73.37 (mg/dL) Final Creatinine, Urine 05/04/2023 14:40:44 127 (mg/dL) Final Albumin/Creatinine [Mass Ratio] in Urine 05/04/2023 14:40:44 578 Above high normal <30 (mg/g Creat) Final Performing Location [facility] [place] [address]
--- OUTSIDE RECORDS SUMMARY | 2023-10-21 00:29 | External Medical Summary ---
Author Name Unknown Address Unknown Organization : Laboratory Report Ordering Provider Test Date Status BRAINFIORDALIZA 05/06/2023 07:12:18 Final Observation Date Value Abnormality Reference (Units ) Status Glucose Point of Care 05/06/2023 07:12:18 165 Above high normal 70-120 (mg/dL) Final Performing Location
--- OUTSIDE RECORDS SUMMARY | 2023-10-21 00:29 | External Medical Summary ---
Author Name Unknown Address Unknown Organization [id number]:LAB[facility]ATORY [facility] [address] [place] [address] Laboratory Report Ordering Provider Test Date Status AMANDA DIAMOND 05/04/2023 14:40:44 Final Observation Date Value Abnormality Reference (Units ) Status Phosphate 05/04/2023 14:40:44 3.8 2.5-4.8 (m g/dL) Final Performing Location [facility]ATORY [facility] [address] [place] [address]
--- OUTSIDE RECORDS SUMMARY | 2023-10-21 00:29 | External Medical Summary ---
Author Name Unknown Address Unknown Organization K01[facility] [address] [facility] [address] Laboratory Report Ordering Provider Test Date Status AMANDA DIAMOND 05/04/2023 14:40:44 Final Observation Date Value Abnormality Reference (Units ) Status Albumin 05/04/2023 14:40:44 4.3 3.8-5.0 (g /dL) Final Performing Location [facility]ORY [facility] - [address] [place] [address]
--- OUTSIDE RECORDS SUMMARY | 2023-10-21 00:29 | External Medical Summary | Summary of Care ---
Author Name Unknown Organization [facility] Address [address] [place] [address] Phone [phone] Care Team Providers Care Bullet Maker Name Role Phone Kerline Sotelo Primary Care Provider + [phone] Reason for Visit * Reason Comments Pre-Transplant Evaluation Encounter Details Date Type Department Care Team Description 05/04[facility] [address] [place] [address] Servando Lugo MD [address] [place] [address] Alphonso Srivastava MD [address] [place] [address] Nurse [facility] [address] [place] [address] Ragini Lopez, [facility] [address] [place] [address] Pre-transplant evaluation for ESRD (end stage renal disease)* Allergies No known active allergiesdocumented as of this encounter (statuses as of 05/05/2023) Medications Medication Sig Dispensed Refills Start Date [...] 09/18/2022 Active Calcitriol 0.25 MCG Oral Capsule (Rocaltrol)Indicati [...] A1c goal of less than 7.0% ([facility]) USE WITH LANTUS ONCE DAILY OR [...] 75 MG Oral Tablet (pLAVix)Indications :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 Every 14 days 2 Each 0 02/19/2023 Active Silver sulfADIAZINE 1 % External Cream (Silvadene) Apply to left foot wound daily. 50 g 1 03/02/2023 Active Allopurinol 100 MG Oral Tablet (Zyloprim) [...] other medications for full effectiveness.. 30 Each 03/27/2023 Active Sodium Bicarbonate 650 MG Oral TabletIndications:C hronic kidney disease, stage 4 (severe) (HCC) Take 2 Tablets by mouth in the morning and 2 Tablets before bedtime. 120 Tablet 11 04/06/2023 Active Veltassa 8.4 GM Oral Packet (Patiromer Sorbitex Calcium)Indications :Hypertensive kidney disease with stage 3b chronic kidney disease (HCC) Mix 1 packet (8.4g) in water and drink the morning. 30 Each 04/08/2023 Active Furosemide 40 MG Oral Tablet (Lasix)Indications: Labile blood pressure,Hypertensi ve kidney disease with stage 3b chronic kidney disease (HCC) Take 1.5 Tablets by mouth 2 times a day. 300 Tablet 3 04/20/2023 Active Clindamycin HCl 300 MG Oral CapsuleIndications: Osteomyelitis of third toe of left foot (HCC) Take 2 Capsules by mouth in the morning and 2 Capsules at noon and 2 Capsules before bedtime. 60 Capsule 0 04/20/2023 Active Vitamin D 50 MCG (1999) Oral Capsule Take 6,000 Units by mouth daily. 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, unspecified whether ad terminal makeup operator insulin use (HCC) 1.5 mg IJ PRN 11/24/2022 3 Discontinued documented as of this encounter (statuses as of 05/05/2023) Active Problems Problem Noted Date Cardiac asthma 09/19/2022 Diabetes mellitus 09/01/2022 Dyslipidemia, goal LDL below 70 09/01/19 23 Renal osteodystrophy 09/01/2022 Multiple thyroid nodules 09/01/2022 Vitreous hemorrhage of right eye 023 History of amputation of hallux 09/01/19 23 Chronic kidney disease, stage 4 (severe) 03/07/2022 Secondary hyperparathyroidism of renal o rigin 03/07/2022 Atherosclerosis of eyak arteries of th e extremities with ulceration [...] bilateral 05/28/2020 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 05/28/2020 Diabetes mellitus with nephropathy 05/25 Diabetes mellitus type 2 with peripheral artery disease 05/25/2019 Aortic root dilatation 05/25/2019 Diabetes mellitus, insulin dependent (ID DM), controlled 05/25/2019 DDD (degenerative disc disease), cervica l 06/18/2018 Urinary retention 08/25/2017 BPH with obstruction/lower urinary tract symptoms 08/25/2017 PAD (peripheral artery disease) 12/15/20 16 Eczema 09/13/2014 Nodule of flexor tendon sheath 5 Thoracic aortic aneurysm 08/25/2013 Family history of ischemic heart disease 08/25/2013 Vitamin D deficiency 08/02/2013 HTN, goal below 140/90 06/21/2013 documented as of this encounter (statuses as of 05/05/2023) Resolved Problems Problem Noted Date Resolved Date [...] as of this encounter (statuses as of 05/05/2023) Immunizations Name Administration Dates Next Due COVID-19 Whole Virus, Rollins Vac, 2-Dose Series ([employer]) 06/10/2021,11/08/2020,10/08/2020 Pneumococcal Polysaccharide PPV23 (Pneumovax) 05/19/2013 [...] Sign Reading Time Taken Comments Blood Pressure 159/72 05/04/2023 10:06 AM EDT Pulse 61 05/04/2023 10:06 AM EDT Temperature 35.7 C (96.2 F) 05/04/2023 1 0:06 AM EDT Respiratory Rate - - Oxygen Saturation - - Inhaled Oxygen Concentration - - Weight 91.5 kg (201 lb 12.8 oz) 023 10:06 AM EDT Height 182 cm (5' 11.65") 05/04/2023 10 :06 AM EDT Body Mass Index 27.63 05/04/2023 10:06 AM EDT documented in this encounter Functional [...] as of this encounter Progress Notes * Ragini Lopez, ELECTRONIC HEAT SEAL OPERATOR - 05/04/2023 1:45 PM EDT Patient identified by verbal name and date of . BACKGROUND INFO DIAGNOSIS: Pt presented to clinic today for pre-renal transplant evaluation. PRESENT AT INTERVIEW: Pt was accompanied to clinic by his partner, Rachelle. CURRENT SOCIAL STATUS: 67 yr old , male. HOUSEHOLD COMPOSITION: Pt currently lives w/ his partner, Rachelle. No concerns noted w/ current livingarrangement. RELEVANT SOCIAL/FAMILY HISTORY: Pt was born and raised in [place]. He was the oldest of 4 children growing up w/ 2 sisters and 1 brother. Pt's parents when pt was 13. Pt's father moved to [facility] and took pt w/out his mother's permission, as pt believes a punishment to his mother. Once pt's father met a new girlfriend and she got , his father sent him back to live w/ his mother. He noted that he was in high school by this time, so was not home long as he joined the [employer] right afterhigh school. Pt reported that both of his parents are now . Pt moved to [place] 14 yrs ago, as his brother was living there and they had the opportunity to work together. His brother still lives there and his sisters live in [facility] [facility] and [facility]. He reported that they maintain regular contact. Pt has been and twice. His first marriage resulted in 2 children - Miguel in [place] and Rancho in [place]. Rancho is not pt's biological dtr, but he legally adopted her. He reporteda close relationship w/ his children. Pt and his 2nd , Rachelle, were for 6 yrs. They and were for 7 yrs before reconciling. They have been back together for 10 yrs. Pt identified Rachelle and his son, Miguel, as his primary sources of support. He noted that his son's fiance, Nabila, w/ whom he is very close has offered to donate. CURRENT LEVEL OF FUNCTIONING: Pt is functionally independent. EDUCATION: Pt graduated high school. He then served 6 yrs in the [employer]. EMPLOYMENT: Pt reported he is retired. He last worked 6 yrs ago at [employer] as a [employer]. He had been employed there for 30 yrs. SPOUSES EMPLOYMENT STATUS: Rachelle is not currently employed. INCOME/FINANCIAL STATUS: No specific financial concerns noted. INSURANCE COVERAGE/COPAY ISSUE: Pt currently has insurance coverage w/ [employer] w/ Rx. TREATMENT MODALITY: Pt is pre-dialysis. He anticipates opting for PD. PROBLEMS IDENTIFIED BY DIALYSIS UNIT: N/A PREVIOUS TRANSPLANTS: None EMOTIONAL/PSYCHOLOGICAL PROFILE UNDERSTANDING OF ILLNESS/TRANSPLANT PROCESS: Pt appeared to have a sound understanding of his renaldisease and the transplant process. His sister donated to a close friend a few weeks ago. BARRIERS TO LEARNING: No barriers identified. Patient responds to written/verbal information. IMPRESSION: Pt presented w/ pleasant mood and congruent affect. Pt was easily engaged and open to intervention. Pt was alert and oriented and maintained good eye contact. Pt was casually dressed and groomed. Speech was clear and thoughts appeared well organized. SOCIAL PROBLEMS IDENTIFIED PSYCHIATRIC ILLNESS: Pt denied history of or current treatment for psychiatric illness. S/I- denied H/I- denied DRUG & ALCOHOL USE: Pt last drank etoh 5 yrs ago. He stopped secondary to health concerns. He drank socially prior to that. He has never smoked and denied illicit drug use. MEDICAL NON-COMPLIANCE: Denied. Pt reported that he has strived to keep his A1C under 7. He was upset this last set of labs when it was 8.2 and he is eager to have it repeated. COPING SKILLS IDENTIFIED: Pt was able to identify an adequate support system primarily consisting of his partner, Rachelle, and his son, Miguel, living locally, as well as appropriate coping skills to meet his post transplant needs. Pt reported that he enjoys fishing, golfing w/ his son, watching sports and cooking. DISCUSSION OF AN LRD: Pt's son's fianceNabila, has offered to donate. Durable Healthcare Power of Sticker Machine Operator discussed; information provided. SOCIAL WORK ASSESSMENT/RECOMMENDATION: Social Support: Low - Good support, stable committed relationship; caregiver(s) able to provide assistance Financial/Insurance: Low - Stable access to healthcare (insurance); work history; good resources;adequate income to meet needs Compliance: Low - Good understandingof medical situation;hx of good follow through on medical recommendations; ability to self manage; able to manage meds and treatment plan Functional Status: Low - Active; excercises; independent Cognitive function: Low - No evidences of cognitive decline/memory deficits; executive functions (ability to organize and follow through with new information) seem intact; no current/historical mental retardation/impairments in adaptive functioning; no current or historical alternative/adaptive learning plans; such as IEP Mental Health: Low - No current or past history of mental illness; No current symptoms; Intact mental status; No family history of mental illness; No past abuse, neglect, loss or other trauma Coping: Low - Identifiable healthy coping skills; History of coping well with stress; Insightful, able to identify needs and seek assistance Substance Abuse: Low - No use or limited use of alcohol; No drug use, including tobacco; No evidence of history of abuse/dependency Legal Issues: Low - Never any legal issues Understanding of Transplant process: Low - Realistic; aware of risks and benefits Motivation for transplant: Low - Self-motivated for transplant as part of continuum of care Overall, per above, patient has a low psychosocial risk profile score and seems to be an appropriate transplant candidate from a psychosocial perspective at this time. Ragini Lopez, ELECTRONIC HEAT SEAL OPERATOR, CCTSW Patient needs to be presented at Selection Conference within 3 months of this psychosocial evaluation. If there is a delay, additional Social Work consultation may be required. * VINNIE Stauffer - 05/04/2023 1:29 PM EDT The intent behind this form is to provide accurate insurance information to designate roles of existing coverage, but also to determine patient eligibility for additional state benefits. REASON FOR APPOINTMENT: Pre -Sinha Eval The following information has been provided by the patient: Miguel Heller [id number] 1955 [phone] [facility] [address] There are no phone numbers on file. Are you a [place] citizen: Yes Are you working: No How long have you been employed with your company? na Do you plan to change jobs or employers? na Primary Care: Kerline Sotelo, DO Are you on a Transplant list elsewhere: no Are you currently on Dialysis: No INSURANCE COVERAGE: Payor: [employer] Plan: [employer] CLASSIC 1 PART D - Product Type: *No Product type* Prescription coverage: Yes, PERFORM RX Medicare Part D plan: YES Do you know your pharmacy plan coverage? YES How much do you pay in co-pays or co-insurance? 0 Were all your insurance cards scanned in our system today? NO ITALIAN TEACHER HAS OUTLINED THE FOLLOWIN. Patient Financial Expectations 2. Billing Process 3. Insurance Information 4. Demographic Information 5. Financial Counselor Information 6. Change of Information Procedure Recommendations: NONE Action to be taken: NONE Patient verbalizes and agrees with all the above information. VINNIE Stauffer * Deacon Gordon MD - 05/04/2023 1:26 PM EDT RENAL TRANSPLANT EVALUATION Referring efficiency manager: PCP Dr Liang History of Present Illness: Mr Heller is a 67 year old man with renal disease secondary to DM is predialysis and is here for evaluation for kidney transplant. The patient makes normal urine. Has H/O LLE claudication with revascularization on 07/23/2016.and RLE claudication s/p revascularization 01/2017 He than developed recurrent claudication and had shockwave angioplasties of RCFA & RSFA on 01/19/23 for claudication/recurrent stenoses by Dr. Olsen. Also had angioplasty of the left superficial femoral artery (6 mm x 250 mm Impact balloon) by Dr Olsen 12/16/21. Has amputation of two toes in left foot and is having another amputation in [place] on 05/06/2023. On dialysis: Pre Began Dialysis Pre Urine amount: 1L daily Previous Transplants: no DM: Yes, Hb A1c was 8 Recent hospitalizations: No HTN: Yes, on 3 medications CAD: No PVD: Yes Transfusions: No Malignancies: No Serious Infections:Yes Gross hematuria: No Stones: No Frequent UTI: No Hesitancy: No Frequency: No H/o DVT/bleeding: No Donors: Yes, potential - niece KDPI>85% Donor: yes CDC Increased Risk Donor: yes Hepatitis C Ab positive (RADHA negative) donors: yes Hepatitis C Ab positive (RADHA positive) donors: no.pmh Past Surgical History: Procedure Laterality Date AORTOGRAM ABDOMINAL-TECH ONLY 05/01/2014 IMAGING SUPERVISION & INTERPRETATION ABDOMINAL AO performed by Erwin Olsen MD at OR [facility] AORTOGRAM ABDOMINAL-TECH ONLY 09/01/2019 IMAGING SUPERVISION & INTERPRETATION ABDOMINAL AO performed by Eriwn Olsen MD at [facility] AORTOGRAM ABDOMINAL-TECH ONLY N/A 12/16/2021 IMAGING SUPERVISION & INTERPRETATION ABDOMINAL AO performed by Erwin Olsen MD at [facility] AORTOGRAM ABDOMINAL-TECH ONLY 02/21/2022 IMAGING SUPERVISION & INTERPRETATION ABDOMINAL AO performed by Erwin Olsen MD at [facility] AORTOGRAM ABDOMINAL-TECH ONLY 01/19/2023 IMAGING SUPERVISION & INTERPRETATION ABDOMINAL AO performed by Erwin Olsen MD at [facility] COLONOSCOPY, DIAGNOSTIC (RECTUM) 12/13/2013 benign polyp, repeat 5 yrs/COLONOSCOPY FLEXIBLE PROXIMAL DIAGNOSTIC performed by Anoop Abernathy MD at ENDOSCOPY [facility] [address] COLONOSCOPY, DIAGNOSTIC (RECTUM) 03/27/2016 hyperplastic polyps, diverticulosis, repeat 5 yrs/COLONOSCOPY FLEXIBLE PROXIMAL DIAGNOSTIC performed by Sanford Wood MD at ENDOSCOPY [facility] [address] CORONARY ANGIOGRAPHY W/LEFT HEART CATH 09/07/2014 CORONARY ANGIOGRAPHY W/LEFT HEART CATH performed by Viki Bhakta MD at [facility]ARDIAC LAB[facility] EGD, FLEXIBLE, DIAGNOSTIC 03/27/2016 normal bx/ESOPHAGOGASTRODUODENOSCOPY (EGD), FLEXIBLE, TRANSORAL, DIAGNOSTIC performed by Sanford Wood MD at ENDOSCOPY [facility] [address] FEM/POP ARTERY REVASC W/ STENT+ANGIOPLASTY 05/01/2014 FEM/POP ARTERY REVASC W/ STENT+ANGIOPLASTY performed by Erwin Olsen MD at [facility] FEM/POP ARTERY REVASC W/ STENT+ANGIOPLASTY Left 07/23/2016 FEM/POP ARTERY REVASC W/ STENT+ANGIOPLASTY performed by Erwin Olsen MD at [facility] FEM/POP ARTERY REVASC W/ STENT+ANGIOPLASTY Right 01/12/2017 FEM/POP ARTERY REVASC W/ STENT+ANGIOPLASTY performed by Erwin Olsen MD at [facility] FEM/POP ARTERY REVASC W/ STENT+ANGIOPLASTY Left 09/01/2019 FEM/POP ARTERY REVASC W/ STENT+ANGIOPLASTY performed by Erwin Olsen MD at [facility] FEM/POP ARTERY REVASC W/ANGIOPLASTY Right 09/12/2015 Drug-coated balloon angioplasty of the right superficial femoral artery. Dr. Olsen. [facility] OR. FEM/POP ARTERY REVASC W/ANGIOPLASTY Left 12/16/2021 FEM/POP ARTERY REVASC W/ANGIOPLASTY performed by Erwin Olsen MD at [facility] FEM/POP ARTERY REVASC W/ANGIOPLASTY Right 02/21/2022 FEM/POP ARTERY REVASC W/ANGIOPLASTY performed by Erwin Olsen MD at [facility] FEM/POP ARTERY REVASC W/ANGIOPLASTY Right 01/19/2023 FEM/POP ARTERY REVASC W/ANGIOPLASTY performed by Erwin Olsen MD at [facility] INJECTION OF EYE DRUG Left 01/18/2016 # [...] performed by Erwin Olsen MD at [facility] IR ARTERIOGRAM EXTREMITY BILATERAL N/A 12/16/2021 ANGIOGRAPHY EXTREMITY BILATERAL performed by Erwin Olsen MD at [facility] IR ARTERIOGRAM EXTREMITY BILATERAL Right 01/19/2023 ANGIOGRAPHY EXTREMITY BILATERAL performed by Erwin Olsen MD at [facility] IR ARTERIOGRAM EXTREMITY UNILATERAL 05/01/2014 IMAGING SUPERVISION & INTERPRETATION EXTREMITY UNILATERAL performed by Erwin Olsen MD at [facility] IR ARTERIOGRAM EXTREMITY UNILATERAL Left 07/23/2016 IMAGING SUPERVISION & INTERPRETATION EXTREMITY UNILATERAL performed by Erwin Olsen MD at [facility] IR ARTERIOGRAM EXTREMITY UNILATERAL Right 01/12/2017 IMAGING SUPERVISION & INTERPRETATION EXTREMITY UNILATERAL performed by Erwin Olsen MD at [facility] IR ARTERIOGRAM EXTREMITY UNILATERAL Left 09/01/2019 IMAGING SUPERVISION & INTERPRETATION EXTREMITY UNILATERAL performed by Erwin Olsen MD at [facility] IR ARTERIOGRAM EXTREMITY UNILATERAL Right 02/21/2022 IMAGING SUPERVISION & INTERPRETATION EXTREMITY UNILATERAL performed by Erwin Olsen MD at [facility] MISCELLANEOUS ORDER ([facility] ONLY) left knee ACL repair MISCELLANEOUS ORDER ([facility] ONLY) Left 01/18/2016 Eylea OS Consent signed, Dr.Cesna ANDERSON ORDER ([facility] ONLY) Right 02/20/2016 Eylea OD Consent signed. Dr Pedro JAMES ([facility] ONLY) Bilateral 04/09/2017 EYLEA CONSENT OU SIGNED; DR PEDRO JAMES ([facility] ONLY) Bilateral 04/06/2018 Eylea OU Consent signed, [...] performed by Angeles Arciniega DPM at OR [facility] [address] [address] REPAIR RUPTURED ROTATOR CUFF, ACUTE right Family History Problem Relation Age of Onset Heart disease Mother in her late 60s Diabetes Father Heart Disorder Father Fatal SD in his mid 60s Hypertension Father No [...] Not on file Occupational History Employer: [employer] Tobacco Use Smoking status: Never Passive exposure: [...] on file Food Insecurity: No Food Insecurity Worried About Running Out of Food in the Last Year: Never true Ran Out of Food in the Last Year: Never true Transportation Needs: Not on file Physical Activity: Not on file Stress: Not on file Social Connections: Not on file Intimate Partner Violence: Not on file Housing Stability: Not on file Current Outpatient Medications Medication Sig Dispense Refill ASPIRIN LOW DOSE 81 MG PO TABS 1 TABLET DAILY 30 Tab 11 Blood Glucose Monitoring Suppl (Mobi-Moto) w/Device KIT Use up to 4 times a day E11.9 1 Kit 0 Food Sprout DELIntact Vascular LANCETS 33G MISC test blood sugars up to four times daily. ICD- 10: E11.9 100 Each 11 Spacer/Aero-Holding Chambers Device Use with inhaler. 1 Each 0 Calcitriol 0.25 MCG Oral Capsule (Rocaltrol) Take 1 Capsule by mouth in the morning. 30 Capsule 5 Melatonin 10 MG Oral Tablet Take 1 [...] BY MOUTH EVERY EVENING 100 Tablet 1 Glucose Blood In Vitro Strip USE TO [...] left foot wound daily. 50 g 1 Allopurinol 100 MG Oral Tablet (Zyloprim) Take [...] water and drink themorning. 30 Each 1 Furosemide 40 MG Oral Tablet (Lasix) Take 1.5 Tablets by mouth 2 times a day. 300 Tablet 3 Clindamycin HCl 300 MG Oral Capsule Take 2 Capsules by mouth in the morning and 2 Capsules at noon and 2 Capsules before bedtime. 60 Capsule 0 No current facility-administered medications for this visit. ROS: Skin: negative Eyes: wears glasses ENT: negative Respiratory: negative Cardiovascular: negative GI: negative : negative Heme: negative Musculoskeletal:pain in legs Neuro: negative Psych: negative Endo: diabetes diet controlled Physical Examination: BP 159/72 (BP Site: Left Arm, BP Position: Sitting, BP Cuff Size: Regular) | Pulse 61 | Temp 35.7 C (96.2 F) | Ht 1.82 m (5' 11.65") | Wt 91.5 kg (201 lb 12.8 oz) | BMI 27.63 kg/m | BSA 2.15 m Constitutional: alert, healthy, well nourished Head: normocephalic, atraumatic Eyes: conjunctiva non-injected, sclera white Ears: pinna normal shape and color Nose: no mucosal erythema, no mucosal edema and no purulent discharge Mouth: no exudate, no erythema and lips, mucosa, and tongue normal Neck: supple, no adenopathy Lungs: clear to auscultation, breath sounds are equal and symmetric Heart: regular rate & rhythm and no murmur, gallops or rubs Abdomen: soft, non-tender, no hernias. Thin abdomen, Back: normal curvature, normal ROM, no CVA tenderness Extremities: no joint deformities, effusion, or inflammation. Two toes amputated on left foot. Zohr5mm toe is gangrenous. Neuro: alert, gait normal, motor normal Skin: no obvious rashes or significant lesions Pulses: Easily palpable femoral pulses Laboratory Data/Radiology Imaging: All labs and imaging reviewed I personally reviewed the patient's available laboratory data. I personally evaluated this patient with an interview, physical examination, review of medications, previous medical records, and any current radiological testing. Discussion: I reviewed both living donor and donor kidney transplantation with the patient. In addition, I reviewed the options of dialysis versus transplant with the patient. I advised the patient thatkidney transplantation definitely improves the quality of life and also allows improved longevity in many patients. I have reviewed in detail the institutional listing consent form with respect to options, risk & benefits, types of donors living vs . This will be scanned into the patients medical record. With respect to donor kidney transplantation, I reviewed both donors with KDPI > 85% & CDC high risk donors. We reviewed the [facility] kidney allocation booklet detailin. Q & A with regard to the new kidney allocation system. 2. How kidneys are classified - Calculation of the Kidney Donor Profile Index (KDPI) score. The KDPI is calculated based on facts about the donor that affect how long the kidney is likely to function. Ranges from zero to 100 per cent. The score is associated with how long the kidney is likely to function when compared with other kidneys. A KDPI score of 20% means that the kidney is likely to function longer than 80% of other available kidneys. A KDPI score of 60% means that the kidney is likely to function longer than 40% of other available kidneys. The factors include: Age Height Weight Ethnicity Whether the donor due to loss of heart function (DCD) or loss of brain function (BDD) Stroke as cause of History of HTN History of DM Exposure to Hepatitis C virus Serum Creatinine 3. How transplant candidates are classified: Each candidate will get an individual Estimated Post Transplant Survival (EPTS) score (range zero to 100 per cent). The score is associated with how long the candidate will need a functioning kidney transplant when compared to other candidates. A person with an EPTS score of 20% is likely to need a kidney longer than 80% of other candidates. A person with an EPTS score of 60% is likely to need a kidney longer than 40% of other people. The EPTS score is calculated based on: Age Length of time spent on dialysis Having received a previous transplant (of any organ) Current diagnosis of diabetes With respect to outcomes, I reviewed the national 1 year graft survival and our center's results. Iencouraged the patient to review this data for himself. With respect to surgical complications, I reviewed the risks of bleeding, infection, delayed graft function, graft thrombosis, rejection, both acute and chronic. Ureteral complications, long-term implication of immunosuppression medication use such as viral infections and certain malignancies and also the risk of mortality associated with any surgical procedure. Assessment and Plan: Mr Heller is a 67 year old man with renal disease secondary to DM is predialysis and is here for evaluation for kidney transplant. The patient makes normal urine. Has H/O LLE claudication with revascularization on 07/23/2016.and RLE claudication s/p revascularization 01/2017 He than developed recurrent claudication and had shockwave angioplasties of RCFA & RSFA on 01/19/23 for claudication/recurrent stenoses by Dr. Olsen. Also had angioplasty of the left superficial femoral artery (6 mm x 250 mm Impact balloon) by Dr Olsen 12/16/21. Has amputation of two toes in left foot and is having another amputation in [place] on 05/06/2023. Cardiac evaluation .CT scan to evaluate aortoiliac vasculature . Has significant H/O serious claudication and multiple vascular intervention. Will need Vascular Surgery clearance. Age appropriate cancer screenings From the surgical standpoint, he appears to be an fair candidate for kidney transplantation. His case will be discussed in detail at a selection committee meeting. I spent a total of 40-54 minutes (exact time 56 mins) on the date of service in preparation, delivery, and documentation of the care provided to Miguel Heller excluding any time spent in the performance of separately billed services. Deacon Gordon MD * Karen Alcantar MD - 05/04/2023 11:45 AM EDT Transplant Evaluation Miguel is a 67 year old male here for evaluation to be a transplant recipient, referred by: Deacon Gordon MD I will communicate with the referring provider by letter and/or shared electronic medical record. Type of transplant: Kidney Prior transplant: no CKD: yes Cause of renal failure: Diabetic nephropathy Biopsy proven: no Dialysis: no. DM: yes, Type II, diagnosis date 1998, current treatment Insulin HTN: yes, diagnosis date 2009, current treatment Coreg 25 mg 1 and 1 half tablets twice a day, Amlodipine 10 mg once a day, Spironolactone 25 mg half tablet a day, Hydralazine 50 mg 1 and half tablets 3 times a day, Lisinopril 40 mg half tablet a day. Urine output: Yes. Normal. Living Donor: Yes. Son's fiance. Multiple Listings: No Foreign travel: No TB exposure: No HIV: No Epilepsy: No UTI: Hx recurrent Staph aureus UTI. 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 Primary plant care worker: Rachelle Heller Back up plant care worker: Jr. Miguel Heller. Past Medical History: Diagnosis Date Aneurysm of [...] performed by Erwin Olsen MD at OR [facility] AORTOGRAM ABDOMINAL-TECH ONLY 09/01/2019 IMAGING SUPERVISION & INTERPRETATION ABDOMINAL AO performed by Erwin Olsen MD at [facility] AORTOGRAM ABDOMINAL-TECH ONLY N/A 12/16/2021 IMAGING SUPERVISION & INTERPRETATION ABDOMINAL AO performed by Erwin Olsen MD at [facility] AORTOGRAM ABDOMINAL-TECH ONLY 02/21/2022 IMAGING SUPERVISION & INTERPRETATION ABDOMINAL AO performed by Erwin Olsen MD at [facility] AORTOGRAM ABDOMINAL-TECH ONLY 01/19/2023 IMAGING SUPERVISION & INTERPRETATION ABDOMINAL AO performed by Erwin Olsen MD at [facility] COLONOSCOPY, DIAGNOSTIC (RECTUM) 12/13/2013 benign polyp, repeat 5 yrs/COLONOSCOPY FLEXIBLE PROXIMAL DIAGNOSTIC performed by Anoop Abernathy MD at ENDOSCOPY [facility] [address] COLONOSCOPY, DIAGNOSTIC (RECTUM) 03/27/2016 hyperplastic polyps, diverticulosis, repeat 5 yrs/COLONOSCOPY FLEXIBLE PROXIMAL DIAGNOSTIC performed by Sanford Wood MD at ENDOSCOPY [facility] [address] CORONARY ANGIOGRAPHY W/LEFT HEART CATH 09/07/2014 CORONARY ANGIOGRAPHY W/LEFT HEART CATH performed by Viki Bhakta MD at [facility] EGD, FLEXIBLE, DIAGNOSTIC 03/27/2016 normal bx/ESOPHAGOGASTRODUODENOSCOPY (EGD), FLEXIBLE, TRANSORAL, DIAGNOSTIC performed by Sanford Wood MD at ENDOSCOPY [facility] [address] FEM/POP ARTERY REVASC W/ STENT+ANGIOPLASTY 05/01/2014 FEM/POP ARTERY REVASC W/ STENT+ANGIOPLASTY performed by Erwin Olsen MD at [facility] FEM/POP ARTERY REVASC W/ STENT+ANGIOPLASTY Left 07/23/2016 FEM/POP ARTERY REVASC W/ STENT+ANGIOPLASTY performed by Erwin Olsen MD at [facility] FEM/POP ARTERY REVASC W/ STENT+ANGIOPLASTY Right 01/12/2017 FEM/POP ARTERY REVASC W/ STENT+ANGIOPLASTY performed by Erwin Olsen MD at [facility] FEM/POP ARTERY REVASC W/ STENT+ANGIOPLASTY Left 09/01/2019 FEM/POP ARTERY REVASC W/ STENT+ANGIOPLASTY performed by Erwin Olsen MD at [facility] FEM/POP ARTERY REVASC W/ANGIOPLASTY Right 09/12/2015 Drug-coated balloon angioplasty of the right superficial femoral artery. Dr. Olsen. [facility] OR. FEM/POP ARTERY REVASC W/ANGIOPLASTY Left 12/16/2021 FEM/POP ARTERY REVASC W/ANGIOPLASTY performed by Erwin Olsen MD at [facility] FEM/POP ARTERY REVASC W/ANGIOPLASTY Right 02/21/2022 FEM/POP ARTERY REVASC W/ANGIOPLASTY performed by Erwin Olsen MD at [facility] FEM/POP ARTERY REVASC W/ANGIOPLASTY Right 01/19/2023 FEM/POP ARTERY REVASC W/ANGIOPLASTY performed by Erwin Olsen MD at [facility] INJECTION OF EYE DRUG Left 01/18/2016 # [...] performed by Erwin Olsen MD at [facility] IR ARTERIOGRAM EXTREMITY BILATERAL N/A 12/16/2021 ANGIOGRAPHY EXTREMITY BILATERAL performed by Erwin Olsen MD at [facility] IR ARTERIOGRAM EXTREMITY BILATERAL Right 01/19/2023 ANGIOGRAPHY EXTREMITY BILATERAL performed by Erwin Olsen MD at [facility] IR ARTERIOGRAM EXTREMITY UNILATERAL 05/01/2014 IMAGING SUPERVISION & INTERPRETATION EXTREMITY UNILATERAL performed by Erwin Olsen MD at [facility] IR ARTERIOGRAM EXTREMITY UNILATERAL Left 07/23/2016 IMAGING SUPERVISION & INTERPRETATION EXTREMITY UNILATERAL performed by Erwin Olsen MD at [facility] IR ARTERIOGRAM EXTREMITY UNILATERAL Right 01/12/2017 IMAGING SUPERVISION & INTERPRETATION EXTREMITY UNILATERAL performed by Erwin Olsen MD at [facility] IR ARTERIOGRAM EXTREMITY UNILATERAL Left 09/01/2019 IMAGING SUPERVISION & INTERPRETATION EXTREMITY UNILATERAL performed by Erwin Olsen MD at [facility] IR ARTERIOGRAM EXTREMITY UNILATERAL Right 02/21/2022 IMAGING SUPERVISION & INTERPRETATION EXTREMITY UNILATERAL performed by Erwin Olsen MD at [facility] MISCELLANEOUS ORDER ([facility] ONLY) left knee ACL [...] performed by Angeles Arciniega DPM at OR [facility] [address] REPAIR RUPTURED ROTATOR CUFF, ACUTE right Social History Socioeconomic History Marital status: Single [...] on file Food Insecurity: No Food Insecurity Worried About Running Out of Food in the Last Year: Never true Ran Out of Food in the Last Year: Never true Transportation Needs: Not on file Physical Activity: Not on file Stress: Not on file Social Connections: Not on file Intimate Partner Violence: Not on file Housing Stability: Not on file Family History Problem Relation Age of Onset Heart disease Mother in her late 60s Diabetes Father Heart Disorder Father Fatal [place] in his mid 60s Hypertension Father No Known Problems Sister No Known Problems Sister No Known Problems Brother No Known Problems Brother Other (CKD/ESRD) None Glaucoma None Eye Problems None Denies family hx of retinal problems Cancer None Stroke None Other (Other) None Denies FmHx of AAA Current Outpatient Medications Medication Sig Dispense Refill ASPIRIN LOW DOSE 81 MG PO TABS 1 TABLET DAILY 30 Tab 11 Blood Glucose Monitoring Suppl (Mobi-Moto) w/Device KIT Use up to 4 times a day E11.9 1 Kit 0 OvalisTOUCH DELICA LANCETS 33G MISC test blood sugars up to four times daily. ICD- 10: E11.9 100 Each 11 Spacer/Aero-Holding Chambers Device Use with inhaler. 1 Each 0 Calcitriol 0.25 MCG Oral Capsule (Rocaltrol) Take 1 Capsule by mouth in the morning. 30 Capsule 5 Melatonin 10 MG Oral Tablet Take 1 [...] BY MOUTH EVERY EVENING 100 Tablet 1 Glucose Blood In Vitro Strip USE TO [...] left foot wound daily. 50 g 1 Allopurinol 100 MG Oral Tablet (Zyloprim) Take [...] water and drink themorning. 30 Each 1 Furosemide 40 MG Oral Tablet (Lasix) Take 1.5 Tablets by mouth 2 times a day. 300 Tablet 3 Clindamycin HCl 300 MG Oral Capsule Take 2 Capsules by mouth in the morning and 2 Capsules at noon and 2 Capsules before bedtime. 60 Capsule 0 No current facility-administered medications for this visit. Review of Systems - Physical Capacity: can walk 1 blocks, can walk up 2 flights of stairs. Assistive Devices: None Prosthesis: No CONSTITUTIONAL: No change in weight, No weakness, No fatigue, and No fevers, sweats, or chills PULMONARY: No cough, sputum, or hemoptysis, No wheezing, No rales, Has shortness of breath on exertion, and No recent change in breathing CARDIOVASCULAR: No chest pain, No shortness of breath, Dyspnea on exertion, No orthopnea, No paroxysmal nocturnal dyspnea, No edema, No palpitations, and No syncope GASTROINTESTINAL: No abdominal pain, No change in bowel habits, No significant heartburn, No significant change in appetite, No nausea, vomiting, diarrhea, or constipation, No hematemesis, No blood in stools or black tarry stools, No abdominal bloating or early satiety, and No dysphagia EXTREMITIES: No pain, redness or swelling on the joints SKIN/INTEGUMENTARY: No edema, No rash, and No itching NEUROLOGIC: Normal balance, No headaches, No seizures, and No weakness BP 159/72 (BP Site: Left Arm, BP Position: Sitting, BP Cuff Size: Regular) | Pulse 61 | Temp 35.7 C (96.2 F) | Ht 1.82 m (5' 11.65") | Wt 91.5 kg (201 lb 12.8 oz) | BMI 27.63 kg/m | BSA 2.15 m PHYSICAL EXAMINATION: Constitutional: alert, healthy, well nourished Head: normocephalic, atraumatic Eyes: conjunctiva non-injected, sclera white Neck: supple, no adenopathy Lungs: clear to auscultation, breath sounds are equal and symmetric Heart: regular rate & rhythm and no murmur, gallops or rubs Abdomen: soft, non-tender Back: normal curvature, normal ROM, no CVA tenderness Extremities: no joint deformities, effusion, or inflammation, no edema, no skin discoloration Neuro: alert, gait normal, motor normal Skin: no obvious rashes or significant lesions Pre-transplant testing: Cardiac: Echocardiogram on 10/29/2022 SHOWING ef OF 50 %. Vascular: PMH includes PAD left leg stent July, and September, right lower extremity angioplasty 01/2017 recurrent SFE stenosis and ongoing PAD procedures including Aug 2019, R popliteal artery angioplasty mid February 2022; diabetes diagnosed 1998 on insulin, history of remote heavy alcohol abuse, thoracic aortic aneurysm July, which forced him to retire due to inability to lift heavy weights. Colonoscopy: Done in 2015 revealing benign polyps. Next in plan. Sensitizations: Blood Transfusion: No Hospitalization:no Immunizations: Gets flu shots every year. Due this year. Hep Bs Ab: 28 Has not had Shingles vaccine. Venous access issues: No Lab Results Component Value Date WBC AUTO - [facility] 7.03 04/09/2023 WBC AUTO - [facility] 6.38 10/27/2022 WBC AUTO - [facility] 6.11 12/22/2019 WBC AUTO - [facility] 5.50 08/08/2019 WBC, URINE - [facility] 0-2 04/09/2023 WBC, URINE - [facility] 0-2 11/13/2022 WBC, URINE - [facility] 0-2 01/12/2020 WBC, URINE - [facility] 0-2 04/08/2019 No components found for: HBG No results found for: PLT Lab Results Component Value Date SODIUM - [facility] 139 04/09/2023 SODIUM - [facility] 140 02/24/2023 SODIUM - [facility] 139 06/07/2020 SODIUM - [facility] 136 02/13/2020 Lab Results Component Value Date POTASSIUM - [facility] 4.1 04/09/2023 POTASSIUM - [facility] 4.4 02/24/2023 POTASSIUM - [facility] 4.5 06/07/2020 POTASSIUM - [facility] 4.8 02/13/2020 POTASSIUM-[facility] 3.9 12/15/2018 POTASSIUM-OUTSIDE LAB 4.4 08/14/2017 Lab Results Component Value Date CHLORIDE - [facility] 100 04/09/2023 CHLORIDE - [facility] 103 02/24/2023 CHLORIDE - [facility] 104 06/07/2020 CHLORIDE - [facility] 106 02/13/2020 Lab Results Component Value Date CO2 - [facility] 22 04/09/2023 CO2 - [facility] 25 02/24/2023 CO2 - [facility] 24 06/07/2020 CO2 - [facility] 19 (L) 02/13/2020 Lab Results Component Value Date GLUCOSE - [facility] 132 (H) 04/09/2023 GLUCOSE - [facility] 172 (H) 02/24/2023 GLUCOSE - [facility] 117 06/07/2020 GLUCOSE - [facility] 279 (H) 02/13/2020 GLUCOSE METER POCT - [facility] 142 (H) 01/19/2023 GLUCOSE METER POCT - [facility] 121 (H) 01/19/2023 GLUCOSE METER POCT - [facility] 166 (H) 09/01/2019 GLUCOSE METER POCT - [facility] 212 (H) 09/01/2019 GLUCOSE, URINE - [facility] Negative 04/09/2023 GLUCOSE, URINE - [facility] 100 (A) 11/13/2022 GLUCOSE, URINE - [facility] NEGATIVE 01/12/2020 GLUCOSE, URINE - [facility] NEGATIVE 04/08/2019 GLUCOSE-[facility] 246 (A) 12/15/2018 GLUCOSE-[facility] 287 (A) 08/14/2017 Lab Results Component Value Date BUN - [facility] 55 (H) 04/09/2023 BUN - [facility] 54 (H) 02/24/2023 BUN - [facility] 32 (H) 06/07/2020 BUN - [facility] 27 (H) 02/13/2020 Lab Results Component Value Date CREATININE - [facility] 4.0 (H) 04/09/2023 CREATININE - [facility] 3.8 (H) 02/24/2023 CREATININE - [facility] 1.9 (H) 06/07/2020 CREATININE - [facility] 1.8 (H) 02/13/2020 CREATININE, RANDOM URINE - [facility] 137 04/09/2023 CREATININE, RANDOM URINE - [facility] 105 11/13/2022 CREATININE, RANDOM URINE - [facility] 314 01/12/2020 CREATININE, RANDOM URINE - [facility] 77 04/08/2019 CREATININE-OU[facility]IDE [facility] 2.53 (A) 12/15/2018 CREATININE-OU[facility] 2.48 (A) 08/14/2017 Lab Results Component Value Date CALCIUM - [facility] 9.7 04/09/2023 CALCIUM - [facility] 9.3 02/24/2023 CALCIUM - [facility] 9.3 06/07/2020 CALCIUM - [facility] 8.9 02/13/2020 CALCIUM, IONIZED - [facility] 1.28 04/27/2017 CALCIUM, IONIZED - [facility] 1.32 07/11/2016 Lab Results Component Value Date MAGNESIUM - [facility] 2.2 05/05/2022 MAGNESIUM - [facility] 2.4 12/22/2019 MAGNESIUM - [facility] 2.2 04/08/2019 Lab Results Component Value Date PHOSPHORUS - [facility] 4.3 04/09/2023 PHOSPHORUS - [facility] 5.9 (H) 12/31/2022 PHOSPHORUS - [facility] 3.7 04/08/2019 PHOSPHORUS - [facility] 3.8 02/15/2018 No results found for: HGBA1C IMP/PLAN: In summary, Miguel is a 67 year old male with chronic kidney disease secondary to Diabetic nephropathy who is a poor candidate for Kidney transplant considering significant Peripheral vascular disease and poor functional status overall. . CT Abd Pelvis not done recently. Cardiac testing: Echocardiogram done on 10/29/22 showing EF 50 %. We had the opportunity to discuss the following, specific for this patient: 1) Need of lifelong immunosuppression 2) Higher chances of opportunistic infections 3) Higher risk of certain types of cancers - skin, urologic and PTLD 4) Chances of worsening of diabetes post transplant./ Chances of NODAT 5) Reoccurance of eyak disease. Recommend: 1) CT abdomen pelvis. 2) stress test and echocardiogram Risks and benefits of transplantation including overall average increase in life expectancy and higher quality of life with transplantation for most recipients. Discussed details of the surgical procedure with its attendant risks, benefits and alternatives. Types of donor organs discussed with patient, including Living donor, high KDPI kidney, Hepatitis CAb+ve/RADHA +ve organs and donor after cardiac (DCD). The relative benefit of living donation over donor transplantation explained. Patient expresses understanding of the information discussed. Discussed survival advantage of transplantation and also discussed living donor advantage. Discussed multiple listing and also center and national outcomes statistics. Discussed risk vs. Benefit of transplantation and immunosuppression. Thank you for allowing me to participate in the care of Miguel Heller I have discussed the assessment with Dr. Lugo, the attending physician. Karen Alcantar MD Nephrology fellow [facility] 05/04/2023 11:45 AM [place] [place] [address] I saw and evaluated the patient today. I have reviewed the trainee note and agree. Extensive data reviewed. Nephrology and vascular surgery notes reviewed. 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 He seems to be a poor candidate for kidney transplant. Servando Lugo MD * Carmelita Mancera RN - 05/04/2023 10:29 AM EDT NAME:Miguel Heller DATE of :1955 SEX:male SOCIAL SECURITY #:[id number] Referring Cutting Supervisor:Dr Kindra Blount Type of Dialysis: Pre-dialysis Primary Diagnosis: Diabetes Type II - Insulin Dependent (adult onset) 3039 Secondary Diagnosis: Hypertension Hypertensive Nephrosclerosis (kidney disease caused by hypertension) 3040 History of Renal Disease: Trouble for a couple years Diabetes: Insulin Dependent Adult Onset Age of Onset: 47 Date of Onset: 1997 Initial Treatment: Oral agents Current Treatment: Insulin injections Other Medical History: 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) Nonproliferative diabetic retinopathy (HCC) BP 159/72 (BP Site: Left Arm, BP Position: Sitting, BP Cuff Size: Regular) | Pulse 61 | Temp 35.7 C (96.2 F) | Ht 1.82 m (5' 11.65") | Wt 91.5 kg (201 lb 12.8 oz) | BMI 27.63 kg/m | BSA 2.15 m Current Prescriptions: Current Outpatient Medications Medication Sig Dispense Refill ASPIRIN LOW DOSE 81 MG PO TABS 1 TABLET DAILY 30 Tab 11 Blood Glucose Monitoring Suppl (Elumen SolutionsUCH VERIO) w/Device KIT Use up to 4 times a day E11.9 1 Kit 0 ONETOUCH DELICA LANCETS 33G MISC test blood sugars up to four times daily. ICD- 10: E11.9 100 Each 11 Spacer/Aero-Holding Chambers Device Use with inhaler. 1 Each 0 Calcitriol 0.25 MCG Oral Capsule (Rocaltrol) Take 1 Capsule by mouth in the morning. 30 Capsule 5 Melatonin 10 MG Oral Tablet Take 1 [...] BY MOUTH EVERY EVENING 100 Tablet 1 Glucose Blood In Vitro Strip USE TO [...] left foot wound daily. 50 g 1 Allopurinol 100 MG Oral Tablet (Zyloprim) Take [...] water and drink themorning. 30 Each 1 Furosemide 40 MG Oral Tablet (Lasix) Take 1.5 Tablets by mouth 2 times a day. 300 Tablet 3 Clindamycin HCl 300 MG Oral Capsule Take 2 Capsules by mouth in the morning and 2 Capsules at noon and 2 Capsules before bedtime. 60 Capsule 0 No current facility-administered medications for this visit. Previous Transplants: no Nephrectomy: No Transfusions: no Number of Transfusions: zero Date of Last Transfusion: n/a Parity 1. Partner's Name: Rachelle Number of Pregnancies: n/a Number of Children: two Transethnicity: Non /Non Trans Race: White Citizenship: [place] Citizenship Transfunc: No activity limitations Transemploy: Not working by choice Transed: Basic renal anatomy function and dysfunction, Transplantation as a treatment option, The evaluation process, The choice of cadaver, living related, and living unrelated transplantation, Withrespect to donor kidney transplantation, I reviewed both donors Kidney Donor Profile Index(KDPI) > 85% & CDC high risk donors. We reviewed the [employer] ([employer]) kidney allocation booklet detailing: - Q&A with regards to the new kidney allocation system - How kidneys are classified - Calculation of the Kidney Donor Profile Index (KDPI) score: The KDPI is calculated based on facts about the donor that affect how long the kidney is likely to function. Range is from zero to one hundred percent. The score is associated with how long the kidney is likely to function when compared to other kidneys. A KDPI score of 20% means that the kidney is likely to function longer than 80% of other available kidneys. A KDPI scare of 60% means that the kidney is likely to function longer than 40% of other available kidneys. The factors include: Age Height Weight Ethnicity Whether the donor due to loss of heart function, Donation after Cardiac (DCD), or loss of brain function, Brain- Donor (BDD) Stroke as cause of History of HTN History of DM Exposure to Hepatitis C virus Serum Creatinine Tissue typing, the waiting list and the point system, Overview of the renal transplant surgery and postoperative care, Possible complications post renal transplantation, Immunosuppressive medicationsand possible side effects, HIV protocol, HIV testing of the donor and testing of antibody presence not viral exposure, Expectations of the patient after transplantation;, monitoring at home, returning to clinic, and taking medications, The patient was encouraged to review pamphlet "Transplant Services" that was mailed to them at the time of the referral for renal transplantation, The patient was instructed to call with questions, The patient was instructed to have any LRD's or LURD's contact us, The patient was instructed and given written information and consent form regarding: The importance of discussing this with efficiency manager at [facility], local efficiency manager, and family 10) Please return to the transplant office the consent form after a decision has been made., Patient informed about multi-listing options, Listing consent form was reviewed The patient will be presented at the next transplant committee meeting. The following information has been completed: Laboratory Studies, Exercise echo 12/02/22 The patient needs the following in order to complete his evaluation for renal transplantation: chest x-ray, CT CAP (per Dr. Gordon), Cardiac Cath for active listing, colonoscopy KDPI- No DCD- No Hep C pos donor/Radha Neg-Yes Hep C pos donor/Radha Pos-No Hep B Core if has antibodies-No The patient was not willing to consent to Donor Kidneys With Active Hepatitis B Virus at the time of education. Living Donors Maybe Education class attended with support person.- ex-/.girlfriend Rachelle Heller The most current SRTR data for kidney was given to patient for review. Release date 02/12/23. Questions answered. Verbalized understanding of information. A copy of the SRTR data was given to the patient. documented in this encounter Plan of Treatment Upcoming Encounters Date Type Specialty Care Team Description 05/06/2023 Hospital Encounter Surgery Angeles Arciniega DPM [address] [place] [address] 05/06/2023 Surgery Surgery Angeles Arciniega DPM [address] [place] [address] AMPUTATION TOE METATARSOPHALANGEAL JOINT 05/07/2023 Nurse Only Ancillary College, Nurse Annual Wellness Visit [address] [facility], [place] [id number] 05/14/2023 Office Visit Podiatry Angeles Arciniega DPM [address] [place] [id number] 06/01/2023 Office Visit Family Medicine Kerline Sotelo, [address] [place] [address] 07/16/2023 Imaging Radiology 08/26/2023 Imaging Radiology 08/26/2023 Imaging Radiology 09/02/2023 Office Visit Vascular Surgery Erwin Olsen MD [address] [facility] [id number] 09/24/2023 Office Visit Dermatology Arabella Motta PA-C [address] [place] [address] [place] [address] 10/19/2023 Office Visit Cardiology Chele Alvarenga PA-C [address] [facility] [address] Scheduled Procedures Name Priority Associated Diagnoses Date/Ti me AMPUTATION TOE METATARSOPHALANGEAL JOINT Toe osteomyelitis (HCC) 05/06/2023 8:00 AM EDT COLONOSCOPY FLEXIBLE PROXIMA L DIAGNOSTIC [...] WHO-authorized risk series) 07/08/2021 06/10/2021, 11/08/2020, 10/08/2020 Influenza Vaccine (FLU shot) (#1) 2023 04/10/2022, 05/13/2021, 05/28/2020, Additional history exists HbA1c 10/08/2023 04/09/2023, 02/07, 09/01/2022, Additional history exists GFR 11/02/2023 05/04/2023, 08/08/2022, 02/24/2023, Additional history exists DTaP,Tdap,and Td Vaccines (2 - Td or Tdap) 11/19/2023 11/18/2013 DIABETES-EYE EXAM 01/08/2024 01/07/2023, , 09/30/2021, Additional history exists Diabetic Foot Exam 01/27/2024 01/26/2023, 0 03/07/2022, 05/28/2020, Additional history exists Depression Screening 04/20/2024 04/20/2023 Albumin/Creatinine Ratio 05/04/2024 023, 11/13/2022, 07/02/2022, Additional history exists GARDASIL-HPV IMMUNIZATION SERIES Aged Out No longer eligible based on patient's age to complete this topic Hepatitis B Aged Out No longer eligi ble based on patient's age to complete this topic MENINGOCOCCAL (MENACTRA/MENVEO) Aged Out No longer eligible based on patient's age to complete this topic documented as of this encounter Medical Devices Implanted Type Area Gravel Inspector Device Identifier Shelf Expiration Date Model / Serial / Lot Graft Stent Viab [id number] - [id number] Implanted:Qty : 1 on 05/01/2014 at [place] [facility] Left: SFA [employer] 03/09/2017 [id number] / / [id number] Stent Complete Sc 6x60 - [id number] Implanted:Qty : 1 on 07/23/2016 by Erwin Olsen MD at [place] [facility] Left: Popliteal Artery [employer] : VASCULAR 02/25/2018 [id number] / / [id number] Graft Stent Viab [id number] - [id number] - [id number] Implanted:Qty : 1 on 01/12/2017 by Erwin Olsen MD at [place] [facility] Right: SFA [employer] 10/01/2019 [id number] / [id number] / Stent Peripheral 7 Diam 150x20 - [id number] Implanted:Qty : 1 on 09/01/2019 by Erwin Olsen MD at [place] [facility] Left: SFA [employer] : VASCULAR [id number] 01/12/2022 [id number] / / [id number] Device Vasc Cls Cadn Mynx6/7fr - [id number] Implanted:Qty : 1 on 02/21/2022 by Erwin Olsen MD at [place] [facility] CARDIOVASCULAR DYNAMICS [id number] 01/07/2023 [id number] / / [id number] documented as of this encounter Visit Diagnoses Diagnosis Pre-transplant evaluation for ESRD (end stage renal disease)- Primary Other specified pre-operative examination Toe osteomyelitis (HCC) Unspecified osteomyelitis, ankle and foot documented in this encounter Advance Directives Latest [...] the patient have Health Care Power of Sticker Machine Operator? No Care Teams Bullet Maker Relationship Specialty Start Date End Date Kerline Sotelo, DO [address] [facility] [place] [address] PCP - General Family Medicine 03/29/23 documented as of this encounter
--- OUTSIDE RECORDS SUMMARY | 2023-10-21 00:29 | External Medical Summary | Summary of Care ---
Author Name Unknown Organization [facility] Address [address] [place] [address] Phone [phone] Care Team Providers Care Bottling Supervisor Name Role Phone Kerline Sotelo Primary Care Provider + [phone] Reason for Visit * Reason Comments Outpatient Testing Encounter Details Date Type Department Care Team Description 05/04/2023 Laboratory Outpatient Laboratory, [place] [address] [place] [address] [place], Lab B1a [address] [place] [address] Chronic kidney disease, stage 4 (severe) (HCC) Allergies No known active allergiesdocumented as of this encounter (statuses as of 05/04/2023) Medications Medication Sig Dispensed Refills Start Date End Date Status ASPIRIN LOW DOSE 81 MG PO TABSIndications:Othe r specified prophylactic or treatment measure 1 TABLET DAILY 30 Tab 11 05/19/2013 Active Blood Glucose Monitoring Suppl (ONETOUCH VERIO) w/Device KITIndications:Veteran corwin glucose Use up to 4 times [...] 75 MG Oral Tablet (pLAVix)Indications: 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 30 Each 1 04/08/2023 Active Furosemide 40 MG Oral Tablet (Lasix)Indications:L abile blood pressure,Hypertensiv e kidney disease with stage 3b chronic kidney disease (HCC) Take 1.5 Tablets by mouth 2 times a day. 300 Tablet 3 04/20/2023 Active Clindamycin HCl 300 MG Oral CapsuleIndications:O steomyelitis of third toe of left foot (HCC) Take 2 Capsules by mouth in the morning and 2 Capsules at noon and 2 Capsules before bedtime. 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 05/28/2020 Diabetes [...] as of this encounter (statuses as of 05/04/2023) Resolved Problems Problem Noted Date Resolved Date [...] as of this encounter (statuses as of 05/04/2023) Immunizations Name Administration Dates Next Due COVID-19 Whole Virus, Rollins Vac, 2-Dose Series ([employer]) 06/10/2021,11/08/2020,10/08/2020 Pneumococcal Polysaccharide PPV23 (Pneumovax) 05/19/2013 [...] Surgery Angeles Arciniega DPM [address] [place] [address] 05/06/2023 Surgery Surgery Angeles Arciniega DPM [address] [place] [address] AMPUTATION TOE METATARSOPHALANGEAL JOINT 05/07/2023 Nurse Only [facility], Nurse Annual Wellness Visit [address] [place] [address] 05/14/2023 Office Visit Podiatry Angeles Arciniega DPM [address] [place] [address] 06/01/2023 Office Visit Family Medicine Kerline Sotelo, DO [address] [place] [address] 07/16/2023 Imaging Radiology 08/26/2023 Imaging Radiology 08/26/2023 Imaging Radiology 09/02/2023 Office Visit Vascular Surgery [facility] [address] [facility] [address] 09/24/2023 Office Visit Dermatology Arabella Motta PA-C [address] [place] [address] [place] [address] 10/19/2023 Office Visit Cardiology Chele Alvarenga PA-C [address] [place] [address] Pending Results Name Type Priority Associated Diagnoses Date /Time BASIC METABOLIC PANEL Lab Routine Chronic kidney disease, stage 4 (severe) (HCC) 05/04/2023 2:40 PM EDT PHOSPHORUS Lab Routine Chronic kidney disease, stage 4 (severe) (HCC) 05/04/2023 2:40 PM EDT HGB Lab Routine Chronic kidney disease, stage 4 (severe) (HCC) 05/04/2023 2:40 PM EDT ALBUMIN Lab Routine Chronic kidney disease, stage 4 (severe) ([facility]) 05/04/2023 2:40 PM EDT ALBUMIN / CREATININE RATIO, URINE Lab Routine Chronic kidney disease, stage 4 (severe) (HCC) 05/04/2023 2:40 PM EDT Scheduled Procedures Name Priority Associated Diagnoses Date/Ti [...] 2023 04/10/2022, 05/13/2021, 05/28/2020, Additional history exists GFR 10/08/2023 04/09/2023, 02/07, 01/07/2023, Additional history exists HbA1c 10/08/2023 04/09/2023, 02/07, 09/01/2022, Additional history exists Albumin/Creatinine Ratio 11/14/202311/13/2 023, 07/02/2022, 06/19/2022, Additional history exists DTaP,Tdap,and Td Vaccines (2 - Td or Tdap) 11/19/2023 11/18/2013 DIABETES-EYE EXAM 01/08/2024 01/07/2023, , 09/30/2021, Additional history exists Diabetic Foot Exam 01/27/2024 01/26/2023, 0 03/07/2022, 05/28/2020, Additional history exists Depression Screening 04/20/2024 04/20/2023 GARDASIL-HPV IMMUNIZATION SERIES Aged Out No longer eligible based on patient's age to complete this topic Hepatitis B Aged Out No longer eligi ble based on patient's age to complete this topic MENINGOCOCCAL (MENACTRA/MENVEO) Aged Out No longer eligible based on patient's age to complete this topic documented as of this encounter Medical Devices Implanted Type Area Creative Technologist Device Identifier Shelf Expiration Date Model / Serial / Lot Graft Stent Viab [id number] - [id number] Implanted:Qty : 1 on 05/01/2014 at OR [facility] Left: SFA [employer] 03/09/2017 [id number] / / [id number] Stent Complete Md 6x60 - [id number] Implanted:Qty : 1 on 07/23/2016 by Erwin Olsen MD at OR [facility] Left: Popliteal Artery [employer] : VASCULAR 02/25/2018 [id number] / / [id number] Graft Stent Viab [id number] - [id number] - [id number] Implanted:Qty : 1 on 01/12/2017 by Erwin Olsen MD at OR [facility] Right: SFA [employer] 10/01/2019 [id number] 02A / [id number] / Stent Peripheral 7 Diam 150x20 - [id number] Implanted:Qty : 1 on 09/01/2019 by Erwin Olsen MD at OR [facility] Left: SFA [employer] : VASCULAR [id number] 01/12/2022 [id number] -020-150 / / [id number] Device [facility] Cls Cadn Mynx6/7fr - [id number] Implanted:Qty : 1 on 02/21/2022 by Erwin Olsen MD at OR [facility] CARDIOVASCULAR DYNAMICS [id number] 01/07/2023 [id number] / / [id number] documented as of this encounter Visit Diagnoses Diagnosis Chronic kidney disease, stage 4 (severe) (HCC) Toe osteomyelitis (HCC) Unspecified osteomyelitis, ankle and [...] the patient have Health Care Power of Technical Recruiter? No Care Teams Bottling Supervisor Relationship Specialty Start Date End Date Kerline Sotelo, [address] [place] [address] PCP - General Family Medicine 03/29/23 documented as of this encounter
--- OUTSIDE RECORDS SUMMARY | 2023-10-21 00:29 | External Medical Summary ---
Author Name Unknown Address Unknown Organization [id number]:LABORATORY [facility] - [facility] [address] [facility] [address] Laboratory Report Ordering Provider Test Date Status AMANDA DIAMOND 05/04/2023 14:40:44 Final Observation Date Value Abnormality Reference (Units ) Status BUN 05/04/2023 14:40:44 47 Above high normal 6-20 (mg/dL) Final Creatinine 05/04/2023 14:40:44 3.5 Above high normal 0.6-1.2 (mg/dL) Final Glomerular filtration rate/1.73 sq M.predicted [Volume Rate/Area] in Serum, Plasma or Blood by Creatinine-based formula (CKD-EPI) 05/04/2023 14:40:44 18 Below low normal >=60 (mL/min) Final eGFR is calculated based on the CKD-EPI 2020 equation SODIUM 05/04/2023 14:40:44 134 Below low normal 135 -146 (mmol/L) Final Potassium 05/04/2023 14:40:44 4.8 3.5-5.1 (m mol/L) Final Cl 05/04/2023 14:40:44 102 98-107 (mm ol/L) Final CO2 05/04/2023 14:40:44 20 Below low normal 22- 32 (mmol/L) Final Anion gap 05/04/2023 14:40:44 12 7-15 (mmol /L) Final Glucose 05/04/2023 14:40:44 322 Above high normal 70 -120 (mg/dL) Final Calcium 05/04/2023 14:40:44 9.5 8.4-10.2 ( mg/dL) Final Performing Location LABORATORY [facility] - [facility] [address] [facility] [address]
--- OUTSIDE RECORDS SUMMARY | 2023-10-21 00:29 | External Medical Summary | Summary of Care ---
Author Name Unknown Organization [facility] Address [address] [place] [address] Phone [phone] Care Team Providers Care Commanding Officer Homicide Squad Name Role Phone MarleneKerline chinchilla Ludy CASTELLANO Primary Care Provider + [phone] Reason for Referral * Precert (Within 10 days (routine)) - Pending Review Specialty Diagnoses / Procedures Referred By Danile buckley Referred To Contact Radiology Diagnoses Pre-transplant evaluation for chronic kidney disease Procedures CT CHEST/ABDOMEN/PELVIS WO IV CONTRAST WO ORAL CONTRAST Deacon Gordon MD [address] [place] [address] Referral ID Status Reason Start Date Expiration Date V isits Requested Visits Authorized [id number] Pending Review 05/20/2023 999 999 Reason for Visit * Reason Onset Date Comments Outpatient Testing 05/06/2023 Encounter Details Date Type Department Care Team Description 05/06/2023 Telephone Transplant Clinic, [place] [address] [place] [address] Carmelita Mancera, RN [address] [place] [address] Outpatient Testing Allergies No known active allergiesdocumented as of this encounter (statuses as of 05/06/2023) Medications Medication Sig Dispensed Refills Start Date End Date Status ASPIRIN LOW DOSE 81 MG PO TABSIndications:Othe r specified prophylactic or treatment measure 1 TABLET DAILY 30 Tab 11 05/19/2013 Active Blood Glucose Monitoring Suppl (ONETOUCH VERIO) w/Device KITIndications:Matthews corwin glucose Use up to 4 times [...] 75 MG Oral Tablet (pLAVix)Indications: Atherosclerosis of k[place] arteries of the extremities with ulceration (HCC) [...] Pain, Mild. 20 Tablet 0 05/06/2023 Active documented as of this encounter (statuses [...] of renal o rigin 03/07/2022 Atherosclerosis of kiana arteries of th e extremities with ulceration [...] bilateral 05/28/2020 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kiana coronary artery without angina pectoris 05/28/2020 Diabetes [...] Telephone Encounter - Carmelita Mancera RN - 05/06/2023 1:53 PM EDT Message left for patient to return call regarding Review Committee recommendation(s). CT of CAP (nocontrast) needed, requested at [facility] as patient lives in [place]. Carmelita Mancera RN 1:53 PM documented in this encounter Plan of Treatment Upcoming Encounters Date Type Specialty Care Team Description 05/14/2023 Office Visit Podiatry Angeles Arciniega, [facility] [address] [facility] [address] 06/01/2023 Office Visit Family Medicine Kerline Sotelo, DO [address] [place] [address] 07/16/2023 Imaging Radiology 08/26/2023 Imaging Radiology 08/26/2023 Imaging Radiology 09/02/2023 Office Visit [facility] [address] [facility] [address] 09/24/2023 Office Visit Dermatology Arabella Motta PA-C [address] [place] [address] [place] [address] 10/19/2023 Office Visit Cardiology Chele Alvarenga PA-C [address] [place] [address] [address] Scheduled Orders Name Type Priority Associated Diagnoses Orde r Schedule CT CHEST/ABDOMEN/PELVIS WO IV CONTRAST WO ORAL CONTRAST Medical Imaging Routine Pre-transplant evaluation for chronic kidney disease Expected: 05/20/2023, Expires: 06/05/2024 Scheduled Procedures Name Priority Associated Diagnoses Date/Ti [...] this encounter Medical Devices Implanted Type Area County Auditor Device Identifier Shelf Expiration Date Model / Serial / Lot Graft Stent Viab [id number] - [id number] Implanted:Qty : 1 [place] 05/01/[place] [facility] [place]: SFA [employer] 03/09/2017 [id number] / / [id number] Stent Complete Ar 6x60 - [id number] Implanted:Qty : 1 on 07/23/2016 [place] Erwin [place] [facility]: Popliteal Artery [employer] : VASCULAR 02/25/2018 [id number] / / [id number] Graft Stent Viab [id number] - [id number] - [id number] Implanted:Qty : 1 on 01/12/2017 by Erwin O[place] [facility] Right: SFA [employer] 10/01/2019 [id number] 02A / [id number] / Stent Peripheral 7 Diam 150x20 - [id number] Implanted:Qty : 1 on 09/01/2019 by Erwin Olsen MD [place] [facility]: SFA [employer] : VASCULAR [id number] 01/12/2022 [id number] -020-150 / / [id number] Device [facility] Cls Cadn Mynx6/7fr - [id number] Implanted:Qty : 1 on 02/21/2022 by Erwin Olsen MD [place] [facility] CARDIOVASCULAR DYNAMICS [id number] 01/07/2023 [id number] / / [id number] documented as of this encounter Visit Diagnoses Diagnosis Kidney disease, chronic, stage V (GFR under 15 ml/min) (HCC)- Primary Chronic kidney disease, Stage V Pre-transplant evaluation for chronic kidney disease Other specified pre-operative examination documented in this encounter Advance Directives Latest [...] the patient have Health Care Power of Senior Software Systems Engineer? No Care Teams Commanding Officer Homicide Squad Relationship Specialty Start Date End Date Kerline Sotelo, DO [address] [place] [address] PCP - General Family Medicine 03/29/23 documented as of this encounter
--- OUTSIDE RECORDS SUMMARY | 2023-10-21 00:30 | External Medical Summary ---
Author Name Unknown Address Unknown Organization K01:LABORATORY [facility] - [address] [facility] [address] Laboratory Report Ordering Provider Test Date Status AMANDA DIAMOND 05/04/2023 14:40:44 Final Observation Date Value Abnormality Reference (Units ) Status Hemoglobin 05/04/2023 14:40:44 10.6 Below low normal 14 .0-16.8 (g/dL) Final Performing Location LABORATORY [facility] - [address] [place] [address]
--- OUTSIDE RECORDS SUMMARY | 2023-10-21 00:30 | External Medical Summary | Summary of Care ---
Author Name Unknown Organization [facility] Address [address] [place] [address] Phone [phone] Care Team Providers Care Food Checker Name Role Phone Kerline Sotelo DO Primary Care Provider Encounter Details Date Type Department Care Team Description 04/30/2023 Patient Reported Data Patient Survey Ortho OBERD Allergies No known active allergiesdocumented as of this encounter (statuses as of 04/30/2023) Medications Medication Sig Dispensed Refills Start Date End Date Status ASPIRIN LOW DOSE 81 MG PO TABSIndications:Othe r specified prophylactic or treatment measure 1 TABLET DAILY 30 Tab 11 05/19/2013 Active Blood Glucose Monitoring Suppl (ONETOUCH VERIO) w/Device KITIndications:[place] corwin glucose Use up to 4 times a day E11.9 1 Kit 0 12/22/2018 Active ONETOUCH DELICA LANCETS 33G [facility] test blood sugars up to four times daily. ICD-10: E11.9 100 Each 11 08/15/2019 Active Vitamin D 50 MCG (1999 UT) Oral Capsule Take 6,000 Units by mouth daily. 3 capsules daily 270 Cap 3 06/07/2020 Active Additional Information Patient not taking.Informant: Patient, Reported on 03/30/2023 Spacer/Aero-Holding Chambers DeviceIndications:DO E (dyspnea on exertion),Shortness of breath Use with inhaler. 1 Each 0 09/18/2022 Active Additional Information Patient not taking.Reported on 01/19/2023 Calcitriol 0.25 MCG Oral Capsule (Rocaltrol)Indicatio ns:Hypertensive [...] 75 MG Oral Tablet (pLAVix)Indications: Atherosclerosis of jena arteries of the extremities with ulceration (HCC) TAKE ONE TABLET BY MOUTH EVERY DAY IN THE MORNING 100 Tablet 3 08/13/2022 4 Active FreeStyle Juju 2 Sensor Use as directed. Every 14 days 2 Each 0 02/19/2023 Active Silver sulfADIAZINE 1 % External Cream (Silvadene) Apply to left foot wound daily. 50 g 1 03/02/2023 Active Additional Information Patient not taking.Reported on 04/20/2023 Allopurinol 100 MG Oral Tablet (Zyloprim) Take [...] before bedtime. 60 Capsule 0 04/20/2023 Active Ciprofloxacin HCl 500 MG Oral Tablet (Cipro)Indications:O steomyelitis of third toe of left foot (HCC) Take 1 Tablet by mouth in the morning for 10 days. 10 Tablet 0 04/20/2023 3 Active Hospital, Clinic, or Other Facility Administered Medication Ordered Dose Route Frequency Start Date End Date Status Albuterol Sulfate (Proventil) (2.5 MG/3ML) 0.083% inhalation solution 2.5 mgIndications:ARRIAGA (dyspnea on exertion),Aortic root dilatation (HCC),Ascending aorta dilatation (HCC),PAD (peripheral artery disease) ([facility]) 2.5 mg NEBULIZER PRN 08/14/2022 08/14/2023 Active Albuterol Sulfate (Proventil) (5 MG/ML) 0.5% *conc* inhalation solution 2.5 mgIndications:ARRIAGA (dyspnea on exertion),Aortic root dilatation (HCC),Ascending aorta dilatation (HCC),PAD (peripheral artery disease) (HCC) 2.5 mg NEBULIZER PRN 08/14/2022 08/14/2023 Active Aflibercept (Eylea) intraviteal prefilled syringe 2 mgIndications: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, unspecified whether termite control representative insulin use (HCC) 2 mg IZ PRN 11/24/2022 11/24/2023 Active ROPivacaine (Naropin) inj 1.5 mgIndications: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, unspecified whether halfway insulin use (HCC) 1.5 mg IJ PRN 11/24/2022 11/24/2023 Active documented as of this encounter (statuses as of 04/30/2023) Active Problems Problem Noted Date Cardiac asthma 09/19/2022 Diabetes mellitus 09/01/2022 Dyslipidemia, goal LDL below 70 09/01/19 Renal osteodystrophy 09/01/2022 Multiple thyroid nodules 09/01/2022 Vitreous hemorrhage of right eye 023 History of amputation of hallux 09/01/19 Chronic kidney disease, stage 4 (severe) 03/07/2022 Secondary hyperparathyroidism of renal o rigin 03/07/2022 Atherosclerosis of jena arteries of th e extremities with ulceration [...] bilateral 05/28/2020 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jena coronary artery without angina pectoris 05/28/2020 Diabetes [...] as of this encounter (statuses as of 04/30/2023) Resolved Problems Problem Noted Date Resolved Date [...] as of this encounter (statuses as of 04/30/2023) Immunizations Name Administration Dates Next Due COVID-19 Whole Virus, Rollins Vac, 2-Dose Series ([employer]) 06/10/2021,11/08/2020,10/08/2020 Pneumococcal Polysaccharide PPV23 (Pneumovax) 05/19/2013 Seasonal [...] Encounters Date Type Specialty Care Team Description 05/04/2023 Office Visit Transplant Clinic Servando Lugo MD [address] [facility] [place] [address] Alphonso Srivastava MD [address] [place] [address] Nurse Bernice Renal Transplant [address] [place] [facility] [place] [place] [address] Sherlyn Bailey LSW [address] [place] [address] 05/04/2023 Laboratory Laboratory [facility] [address] [place] [address] 05/06/2023 Hospital Encounter Surgery Angeles Arciniega DPM [address] [place] [address] 05/06/2023 Surgery Surgery Angeles Arciniega DPM [address] [place] [address] AMPUTATION TOE METATARSOPHALANGEAL JOINT 05/07/2023 Nurse Only [facility], Nurse Annual Wellness Visit [address] [facility] [address] [place] [address] 05/14/2023 Office Visit Podiatry Angeles Arciniega DPM [address] [place] [address] 06/01/2023 Office Visit Family Medicine Kerline Sotelo, DO [address] [place] [address] 07/16/2023 Imaging Radiology 08/26/2023 Imaging Radiology 08/26/2023 Imaging Radiology 09/02/2023 Office Visit Vascular Surgery Erwin Olsen MD [address] [place] [address] 09/24/2023 Office Visit Dermatology Arabella Motta PA-C [address] [place] [address] [place] [address] 10/19/2023 Office Visit Cardiology Chele Alvarenga PA-C [address] [place] [address] [address] Scheduled Procedures Name Priority Associated Diagnoses Date/Ti [...] 02/07, 09/01/2022, Additional history exists Albumin/Creatinine Ratio 11/14/2023 023, 07/02/2022, 06/19/2022, Additional history exists DTaP,Tdap,and [...] this encounter Medical Devices Implanted Type Area Post Acute Care Nurse Device Identifier Shelf Expiration Date Model / Serial / Lot Graft Stent Viab [id number] - [id number] Implanted:Qty : 1 on 05/01/2014 [place] [facility] [place]: SFA [employer] 03/09/2017 [id number] / / [id number] Stent Complete Al 6x60 - [id number] Implanted:Qty : 1 on 07/23/2016 by Erwin Olsen MD [place] [facility] [place]: Popliteal Artery [employer] : VASCULAR 02/25/2018 [id number] / / [id number] Graft Stent Viab [id number] - [id number] - [id number] Implanted:Qty : 1 on 01/12/2017 by Erwin Olsen MD [place] [facility] [place] Right: SFA [employer] 10/01/2019 [id number] 02A / [id number] / Stent Peripheral 7 Diam 150x20 - [id number] Implanted:Qty : 1 on 09/01/2019 by Erwin Olsen MD [place] [facility] [place] Left: SFA [employer] : VASCULAR [id number] 01/12/2022 [id number] -020-150 / / [id number] Device [facility] Cls Cadn Mynx6/7fr - [id number] Implanted:Qty : 1 on 02/21/2022 by Erwin Olsen MD at [place] [facility] [place] CARDIOVASCULAR DYNAMICS [id number] 01/07/2023 [id number] / / [id number] documented as of this encounter Advance Directives [...] the patient have Health Care Power of Salsa Dance Instructor? No Care Teams Food Checker Relationship Specialty Start Date End Date Kerline Sotelo, DO [address] [place] [address] PCP - General Family Medicine 03/29/23 documented as of this encounter
--- OUTSIDE RECORDS SUMMARY | 2023-10-21 00:30 | External Medical Summary | Summary of Care ---
Author Name Unknown Organization [facility] Address [address] [place] [address] Phone [phone] Care Team Providers Care Fluorescent Lighting Model Maker Name Role Phone Kerline Sotelo DO Primary Care Provider + [phone] Reason for Visit * Reason Comments Follow Up L foot Encounter Details Date Type Department Care Team Description 04/27/2023 Office Visit Podiatry [facility] [address] [facility] [place] [address] Angeles Arciniega DPM [address] [facility] [place] [address] Open wound of toe, initial encounter*; Osteomyelitis of second toe of left foot ([facility]); Type 2 diabetes mellitus with hemoglobin A1c goal of less than 7.0% ([facility]); PAD (peripheral artery disease) ([facility]) Allergies No known active allergiesdocumented as of this encounter (statuses as of 04/27/2023) Medications Medication Sig Dispensed Refills Start Date End Date Status ASPIRIN LOW DOSE 81 MG PO TABSIndications:Othe r specified prophylactic or treatment measure 1 TABLET DAILY 30 Tab 11 05/19/2013 Active Blood Glucose Monitoring Suppl (ONETOUCH VERIO) w/Device KITIndications:[place] corwin glucose Use up to 4 times a day E11.9 1 Kit 0 12/22/2018 Active ONETOUCH DELICA LANCETS 33G MISC test blood sugars up to four times daily. ICD-10: E11.9 100 Each 11 08/15/2019 Active Vitamin D 50 MCG (2000 UT) [...] hemoglobin A1c goal of less than 7.0% ([facility]) USE WITH LANTUS ONCE DAILY OR DIRECTED 300 Each 3 11/20/2022 4 Active Lantus SoloStar 100 UNIT/ML Subcutaneous Solution Pen-injectorIndicati ons:Type 2 diabetes mellitus with hemoglobin A1c goal of less than 7.0% ([facility]) INJECT 18 UNITS UNDER THE SKIN ONCE [...] Oral Tablet (pLAVix)Indications: Atherosclerosis of [place] arteries of the extremities with ulceration (HCC) [...] both eyes and macular edema, unspecified whether oil heaterman insulin use (HCC) 2 mg IZ PRN 11/24/2022 11/24/2023 Active ROPivacaine (Naropin) inj 1.5 mgIndications: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, unspecified whether oil heaterman insulin use (HCC) 1.5 mg IJ PRN 11/24/2022 11/24/2023 Active documented as of this encounter (statuses as of 04/27/2023) Active Problems Problem Noted Date Cardiac asthma 09/19/2022 Diabetes mellitus 09/01/2022 Dyslipidemia, goal LDL below 70 09/01/19 23 Renal osteodystrophy 09/01/2022 Multiple thyroid nodules 09/01/2022 Vitreous hemorrhage of right eye 023 History of amputation of hallux 09/01/19 23 Chronic kidney disease, stage 4 (severe) 03/07/2022 Secondary hyperparathyroidism of renal o rigin 03/07/2022 Atherosclerosis of [place] arteries of th e extremities with ulceration [...] 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[place] coronary artery without angina pectoris 05/28/2020 Diabetes [...] as of this encounter (statuses as of 04/27/2023) Resolved Problems Problem Noted Date Resolved Date [...] as of this encounter (statuses as of 04/27/2023) Immunizations Name Administration Dates Next Due COVID-19 Whole Virus, Rollins Vac, 2-Dose Series ([employer] 06/10/2021,11/08/2020,10/08/2020 Pneumococcal Polysaccharide PPV23 (Pneumovax) 05/19/2013 Seasonal [...] Progress Notes * Angeles Arciniega, DPM - 04/27/2023 1:40 PM EDT Podiatry [email or web address] Name[facility] Miguel Heller : 1955 Date: 04/27/2023 REASON FOR VISIT: 3rd toe, left foot- procedure follow up SUBJECTIVE: This patient is a 67 year old male who presents today with complaints of redness and swelling to the left 3rd toe. Unclear how long this has been going on, but states he called his PCP who got an xray and then referred here. Bony destruction noted to the distal aspect of the 3rd toe, left foot. He was on Clindamycin, but states this caused him to have a knot in his chest and he was advised to stop taking this. He does not know how long this has been going on. Denies any trauma. Denies any other complaints. BS was 139 last night. 10/20/2022- Today, pt presents for follow up and MRI results. He was called to give results, but feels his toe is doing better. He notices some swelling, but denies any pain or drainage. He is concerned about the proposed surgical intervention and would like to discuss. Denies any other complaints. Would like his nails trimmed. 11/03/2022- Today, pt presents for follow up and partial 3rd toe amputation, left foot. We tried to do him in the OR per pts request, but he was not cleared, thus resulting in the partial toe amputation in the clinic. Denies any other complaints. Presents with his , Rachelle. 11/17/2022- Today, pt presents for follow up. He has been doing well with betadine and a bandaid. present. Denies any other complaints. No pain. 12/01/22- Today, pt presents for follow up. He has been doing ok. Thought his toe was infected and started taking Clindamycin that he had left over, but did not call the office. His is present. 12/10/2022- Today, pt presents for follow up. He has been doing well. Wearing his post-op shoe. Feeling hopefull for his toe. Doing well on the Keflex. 12/18/2022- Today, pt presents for follow up. He has been doing well, not interested in losing the rest of his toe. No redness and feeling fine. Saw vascular and going for a procedure January 19. 01/06/2023- Today, pt presents for follow up and removal of the remaining 3rd toe. His last bone biopsy came back as positive for acute osteomyelitis. Agreed to remove the remaining portion of the 3rdtoe, left foot. He also states last week when on vacation he hit his 2nd toe and has increased pain. Denies any other complaints. 01/08/2023- Today, pt presents for follow up of recent toe amputation, left foot. Doing well. Mostly complains of pain to the left 2nd toe that he likely broke last week. Walking in post-op shoe. Complains of claudication pain to the right lower extremity, but having procedure on 01/19. 01/13/2023- Today, pt presents for follow up. Doing well. Pain to the left 2nd toe from injury prior to toe amputation. Wearing post-op shoe. Denies any other complaints. Having vascular procedure on Thursday. 01/22/23- Presents today for follow up. Did well with his vascular procedure and his pain to the right leg is nearly resolved. Denies any other complaints. 02/02/2023- Today, pt presents for follow up. Continues to improve. 2nd toe is feeling better. Nail is loose now. Wearing normal shoes. Going back to work today. 03/02/2023- Today, pt presents for follow up. Doing well. Was sick last week. No pain to the left foot. Concerned about left ankle swelling. Using betadine and a dressing. Denies any other complaints. 03/17/2023- Today, pt presents for follow up. Doing well. Wound nearly healed. No pain. Feels well. Denies any other complaints. 04/16/2023- Today, pt presents for follow up. He states this past week he noticed skin was growing onskin and then fell off. He missed his last appointment and has not been seen for about a month. He is concerned about the end of his 2nd toe. Denies any other complaints. 04/27/2023- Today, pt presents for follow up. He was seen by Dr. Sotelo last week who reached out and placed him on oral abx. He looks stable to day. Having surgery next week. Denies any other complaints. Past Medical History: [...] No weakness, No fatigue and No fevers, sweats, or chills EYE: No recent significant change in vision and No eye pain, redness, discharge EARS: No ear pain and No drainage NOSE: No history of frequent colds or sinusitis and No significant epistaxis PULMONARY: No cough, sputum, or hemoptysis and No recent change in breathing CARDIOVASCULAR: No chest pain, No shortness of breath and No syncope EXTREMITIES: Left 3rd toe wound SKIN/INTEGUMENTARY: No edema, No rash and No itching NEUROLOGIC: Normal balance, No headaches, No seizures and No weakness PSYCHIATRIC: No depression, No anxiety and No psychosis LEFT FOCUSED PODIATRIC EXAM: Vitals: There were no vitals filed for this visit. General: Patient is awake alert oriented to person place time. No apparent distress. Vascular: DP/PT pulses palpable. CFT < 3 sec 1-5. No edema noted. Temperature gradient is normal warm to cold. Neurologic: Protective sensation absent to light touch. Sensation to sharp/dull is absent. There is no babinskiresponse elicited. Ankle clonus is absent. Dermatological: Skin is normal in appearance with no open lesions or interdigital macerations. Nails 1-5 right and 2,4 and 5, left are thickened, discolored and elongated. Pedal hair is noted. Incision is well coapted with sutures noted and removed. No open wounds noted to the left foot. Musculoskeletal: No pain with active or passive ROM of the digits or ankle joint. Muscle strength is 5/5 for all muscle groups of the lower extremity. Left hallux amputation noted. Amputation site healing well. Left 2nd toe with phalanx exposed. DIAGNOSTIC STUDIES: 3 views of the left 3rd toe (09/18/2022) FINDINGS There is osteolysis and fragmentation at the tuft of the 3rd distal phalanx concerning for osteomyelitis. No acute fracture or dislocation. Prior great toe amputation at the MTP joint level. IMPRESSION IMPRESSION Findings most consistent with 3rd distal phalanx osteomyelitis. MRI, left foot (10/06/2022) FINDINGS Bone: Marrow edema and enhancement in the 3rd distal phalanx with loss of T1 fat signal consistent with acute osteomyelitis. There is mild edema and enhancement in the 3rd proximal and middle phalanges suggesting osteitis with preserved fat signal. Prior amputation of the great toe. No fracture or dislocation. Soft Tissues: Soft tissue swelling/edema involving the 3rd toe. Diffuse intramuscular edema. No abscess. IMPRESSION IMPRESSION Acute osteomyelitis of the left 3rd distal phalanx. 3 views of the left 2nd toe (04/16/2023)- bony destruction noted to the distal phalanx of the left 2nd toe. PATH: Final Diagnosis A. Left toe, amputation: Destruction of bone with focal chronic inflammation, suggestive of chronic osteomyelitis B. Left toe, clean, bone biopsy: Multifocal disruption of bone cortex with adjacent fibrosis Focal chronic inflammation in marrow adipose tissue, suspicious for involvement by chronic osteomyelitis Wound Location: Surgical site- healed Left 2nd toe with necrosis and exposed bone. No debridement performed. ASSESSMENT: 1. Open surgical wound, 3rd toe, left foot 2. DM2 with neuropathy 3. Hx of left hallux amputation 4. PVD 5. S/p 3rd toe amputation, left foot (01/06/23) 6. Osteomyelitis, 2nd toe, left foot PLAN: - Pt doing well. Bone exposed to the left 2nd toe. Xrays personally reviewed with bony destruction. - Previous surgical site healed. - No active signs of infection noted. - Continue with betadine and DSD daily. This was applied today. Supplies given. - WBAT in normal shoe. He has diabetic shoes/inserts, but states these are heavy. - Tylenol as needed. - Ok to shower, no soaking. - Will plan for left 2nd toe amputation next week. Risks discussed. - Pt to RTC 1 week post op. Pt to call with any problems or questions. Angeles Arciniega DPM documented in this encounter Nursing Notes * Cathy Herrera LPN - 04/27/2023 1:26 PM EDT Pt presents for 1 + week follow up L foot, is taking Cipro, stopped the clindamycin due to GI upset. documented in this encounter Plan of Treatment Upcoming Encounters Date Type Specialty Care Team Description 05/04/2023 Office Visit Transplant Clinic Servando Lugo MD [address] [place] [address] Alphonso Srivastava MD [address] [place] [address] Nurse [facility] Trans[facility] [address] [place] [address] Sherlyn Bailey LSW [address] [place] [address] 05/04/2023 Laboratory Laboratory [place], Lab B1a [address] [place] [address] 05/06/2023 Hospital Encounter Surgery Angeles Arciniega DPM [address] [facility] [address] 05/06/2023 Surgery Surgery Angeles Arciniega DPM [address] [address] AMPUTATION TOE METATARSOPHALANGEAL JOINT 05/07/2023 Nurse Only [facility], Nurse Annual Wellness Visit [address] [place] [address] 05/14/2023 Office Visit Podiatry Angeles Arciniega DPM [address] [id number] 06/01/2023 Office Visit Family Medicine Kerline Sotelo, DO [address] [place] [address] 07/16/2023 Imaging Radiology 08/26/2023 Imaging Radiology 08/26/2023 Imaging Radiology 09/02/2023 Office Visit Vascular Surgery Erwin Olsen MD [address] [place] [address] 09/24/2023 Office Visit Dermatology Arabella Motta PA-C [address] [place] [address] [place] [id number] 10/19/2023 Office Visit Cardiology Chele Alvarenga PA-C [address] [address] Scheduled Procedures Name Priority Associated Diagnoses Date/Ti [...] this encounter Medical Devices Implanted Type Area Roaster Supervisor Device Identifier Shelf Expiration Date Model / Serial / Lot Graft Stent Viab [id number] - [id number] Implanted:Qty : 1 on 05/01/2014 at [place] [facility] [place] Left: SFA [employer] 03/09/2017 [id number] / / [id number] Stent Complete Sc 6x60 - [id number] Implanted:Qty : 1 on 07/23/2016 by Erwin Olsen MD at [place] [facility] [place] Left: Popliteal Artery [employer] : VASCULAR 02/25/2018 [id number] / / [id number] Graft Stent Viab 3phy4vi - [id number] - [id number] Implanted:Qty : 1 on 01/12/2017 by Erwin Olsen MD at [place] [facility] [place] Right: SFA [employer] 10/01/2019 [id number] / [id number] / Stent Peripheral 7 Diam 150x20 - [id number] Implanted:Qty : 1 on 09/01/2019 by Erwin Olsen MD at OR [facility] [place] Left: SFA [employer] : VASCULAR [id number] 01/12/2022 [id number] / / [id number] Device [facility] Cls Cadn Mynx6/7fr - [id number] Implanted:Qty : 1 on 02/21/2022 by Erwin Olsen MD at OR [facility] [place] [employer]ULAR [employer]YNAM[employer] [id number] 01/07/2023 [id number] / / [id number] documented as of this encounter Visit Diagnoses Diagnosis Open wound of toe, initial encounter- Primary Osteomyelitis of second toe of left foot (HCC) Type 2 diabetes mellitus with hemoglobin A1c goal of less than 7.0% (HCC) PAD (peripheral artery disease) (HCC) Peripheral vascular disease, unspecified Toe osteomyelitis (HCC) Unspecified osteomyelitis, ankle and [...] the patient have Health Care Power of Forms Builder? No Care Teams Fluorescent Lighting Model Maker Relationship Specialty Start Date End Date Kerline Sotelo, DO [address] [place] [address] PCP - General Family Medicine 03/29/23 documented as of this encounter
--- OUTSIDE RECORDS SUMMARY | 2023-10-21 00:30 | External Medical Summary | Summary of Care ---
Author Name Unknown Organization [facility] Address [address] [place] [address] Phone [phone] Care Team Providers Care Cloth Bolt Bander Name Role Phone Kerline Sotelo DO Primary Care Provider [phone] Encounter Details Date Type Department Care Team [...] Blood Glucose Monitoring Suppl (ONETOUCH VERIO) w/Device KITIndications:[place] corwin glucose Use up to 4 times a day E11.9 1 Kit 0 12/22/2018 Active ONETOUCH DELICA LANCETS 33G [facility] test blood sugars up to four times [...] aorta dilatation (HCC),PAD (peripheral artery disease) ([facility]) 2.5 mg NEBULIZER PRN 08/14/2022 08/14/2023 Active Albuterol Sulfate (Proventil) (5 MG/ML) 0.5% *conc* inhalation solution 2.5 mgIndications:[place]A (dyspnea on exertion),Aortic root dilatation (HCC),Ascending aorta dilatation (HCC),PAD (peripheral artery disease) (HCC) 2.5 mg NEBULIZER PRN 08/14/2022 08/14/2023 Active Aflibercept (Eylea) intraviteal prefilled syringe 2 mgIndications: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, unspecified whether police judge insulin use (HCC) 2 mg IZ PRN 11/24/2022 11/24/2023 Active ROPivacaine (Naropin) inj 1.5 mgIndications: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, unspecified whether jail insulin use (HCC) 1.5 mg IJ PRN [...] of renal o rigin 03/07/2022 Atherosclerosis of [place] arteries of th e extremities with ulceration [...] COVID-19 Whole Virus, Rollins Vac, 2-Dose Series ([employer]) 06/10/2021,11/08/2020,10/08/2020 Pneumococcal Polysaccharide PPV23 (Pneumovax) 05/19/2013 Seasonal [...] Transplant Clinic Servando Lugo MD [address] [facility] [place] [address] Alphonso Srivastava MD [address] [place] [address] Nurse Bernice Renal Transplant [address] [facility] [place] [address] Sherlyn Bailey LSW [address] [place] [address] 05/04/2023 Laboratory Laboratory [facility] B1a [address] [place] [address] 05/06/2023 Hospital Encounter Surgery Angeles Arciniega DPM [address] [place] [address] 05/06/2023 Surgery Surgery Angeles Arciniega DPM [address] [place] [address] AMPUTATION TOE METATARSOPHALANGEAL JOINT 05/07/[address] [facility], Nurse Annual Wellness Visit [address] [facility] [address] [place] [address] 05/14/2023 Office Visit Podiatry Angeles Arciniega DPM [address] [place] [address] 06/01/2023 Office Visit Family Medicine Kerline Sotelo, DO [address] [place] [address] 07/16/2023 Imaging Radiology 08/26/2023 Imaging Radiology 08/26/2023 Imaging Radiology 09/02/2023 Office Visit Vascular Surgery Erwin Olsen MD [address] [place] [address] 09/24/2023 Office Visit Dermatology Arabella Motta PA-C [address] [place] [address] [place] [address] 10/19/2023 Office Visit Cardiology Chele Alvarenga PA-C [address] [address] Scheduled Procedures Name Priority Associated Diagnoses Date/Ti [...] this encounter Medical Devices Implanted Type Area Wildlife Veterinarian Device Identifier Shelf Expiration Date Model / Serial / Lot Graft Stent Viab [id number] - [id number] [place]planted:Qty : 1 on 05/01/[place] [facility] [place] SFA [employer] 03/09/2017 [id number] / / [id number] Stent Complete Md 6x60 - [id number] Implanted:Qty : 1 on 07/23/2016 by Erwin Olsen [place] [facility] [place]: Popliteal Artery [employer] : VASCULAR 02/25/2018 [id number] / / [id number] Graft Stent Viab [id number] - [id number] - [id number] Implanted:Qty : 1 on 01/12/2017 by Erwin Olsen [place] [facility] [place] [facility] [place]: SFA [employer] 10/01/2019 [id number] / [id number] / Stent Peripheral 7 Diam 150x20 - [id number] Implanted:Qty : 1 on 09/01/2019 by Erwin Olsen MD [place] [facility] [place] [facility] [place]: SFA [employer] : VASCULAR [id number] 01/12/2022 [id number] / / [id number] Device [facility] Cls Cadn Mynx6/7fr - [id number] Implanted:Qty : 1 on 02/21/2022 by Erwin Olsen MD [place] [facility] [place] [facility] [place] [employer] [id number] 01/07/2023 [id number] / / [id number] documented as of this encounter Advance Directives [...] the patient have Health Care Power of Seismology Teacher? No Care Teams Cloth Bolt Bander Relationship Specialty Start Date End Date Kerline Sotelo, DO [address] [place] [address] PCP - General Family Medicine 03/29/23 documented as of this encounter
[2023-10-21] MEDS: HEPARIN SOD (PORCINE) 1000 UNIT/ML IV ONE (00:51)
[2023-10-21 03:15] LABS: C Reactive Protein 0.98 mg/dl (0-0.5); Calcium 8.9 mg/dl (8.6-10.3); Creatinine Clr Calc Pharmacy 19.2 ml/min; Est GFR (African American) 16.2 ml/min; Magnesium 1.7 mg/dl (1.7-2.4); Potassium 3.8 mmol/L (3.5-5.1)
[2023-10-21 04:33] LABS: Influenza A virus by PCR Negative (Neg); Influenza B virus by PCR Negative (Neg); RSV by PCR Negative (Neg); SARS CoV2 RNA(COVID-19) Ceph NEGATIVE (Negative)
--- NOTE | 2023-10-21 06:14 | Discharge Summary ---
Date of Service October 21, 2023 Admission HPI Per Admitting Provider 68 yo M presents today with progressive fatigue and SOB with exertion. He has been followed with outpatient [facility] cardiology and is scheduled for a cardiac catheterization tomorrow. After contacting the cardiology clinic regarding chest pain that developed here, he was advised to go to the ER for further testing. In the ER, his troponin is elevated into the 500s and there are concerning findings on his EKG. His chest pain was resolved without medication and he remains chest -pain free. He was treated for an NSTEMI with ASA 324 and a heparin drip and is on carvedilol per home medications. Workup also revealed worsening renal function in the setting of known CKD-Stage IV at baseline. IVF have been started. His creat in Jul was 2.77, and per outpatient records 3.5 (Sep 02)-->4.2-->4.0 (Oct 03). Today his creatinine is 3.77. He is on calcitriol, veltassa and sodium bicarb but reports that he is not taking his bicarb or Veltassa at this time. He is managed by [facility]. He is a diabetic with most recent A1C in Mar 2023 and is 8.2. He is on Lantus monotherapy without prandial coverage. He is unaware of why, but reports his post prandial and fasting sugars are above goal. He reports his leg pain with exercise is getting worse. Hard to walk 10-20 ft without severe pain. Last couple months more sob, even with just getting up and going to the bathroom. He has been this was with decreased functional status over the last few years but prior to 4 months ago he could recover after one resting period and keep going. Now he reports that he cannot recover with rest. In fact, he just came back from [place] on vacation and couldn't walk more than 1 block without "gasping for air" and sitting down until his legs recovered. He has also had to quit his job in the last 6 months over not being able to function. Chest pain today felt like dull, discomfort in the substernal region. He felt it last night after he had laid down to sleep. Also felt assoc numbness in his left shoulder. When he sat up the pain started to go away--took over an hour fo this to occur, and this has been happening the last 4 nights consecutively. Principal Diagnosis NSTEMI Discharge Data Allergies Allergy/AdvReac Type Severity Reaction Status Date / Time No Known Allergies Allergy Verified 10/20/23 14:09 Consultations 10/20/23 13:42 Consult Cardiology Stat 10/20/23 15:27 ED Decision to Admit Stat Hospital Course (1) Acute non-ST elevation myocardial infarction (NSTEMI): This patient is an uncontrolled diabetic with ongoing angina pain, and an elevation in cardiac enzymes. There are TWI in lateral leads and TWI with some ST depression in V4-6 concerning for ischemia. He was pain-free, but during our conversation developed a "twinge" of pain that was mild. Nitro paste was added and he and family were counseled to alert staff if his pain did not go away or if it returned overnight. He verbalized understanding with intent to comply. A reassessment after nitro paste was zero chest pain. Cardiology consulted and echo today revealed a subtle anterior wall hypokinesis with an LV EF 55-60%. Mod MR and Grade II DD also noted. Continue heparin infusion, carvedilol, atorvastatin, Plavix and baby aspirin. Nitropaste added for symptoms which are now controlled. Continue monitoring in PCU overnight. N.p.o. after midnight with plans for transfer for heart catheterization at [facility] in the morning. (2) CKD (chronic kidney disease) stage 4, GFR 15-29 ml/min: Creatinine is up slightly from his baseline but is actually lower than recent outpatient lab work report. Hold Lasix, lisinopril, spironolactone. Notably patient is not on Veltassa. This should be clarified with nephrology who is managing his medication as outpatient. First priority is managing his NSTEMI with plan as noted above. Monitor BMP. Small amount of fluid was given in the ER this evening in preparation for contrast load tomorrow morning. (3) Anemia of chronic disease: Chronic, stable per outpatient medical record review. No active bleeding. Continue heparin drip and continue monitoring CBC. (4) Diabetes mellitus, type II: Chronic, uncontrolled. Repeat A1c in AM. Patient was counseled at bedside regarding the need for prandial coverage of his blood glucose and to discuss this further with his managing glycemic pharmacist as outpatient or with his primary care provider. He verbalized understanding with intent to comply. 1 treatment option to help reduce the risk of progression of chronic kidney disease is Jardiance. This was discussed with patient and his family. (5) PAD (peripheral artery disease): Chronic, patient with exercised induced last claudication that is worse in the last 4 months likely related to his heart disease. Continue medical management and reassess after cardiac cath tomorrow. (6) HTN (hypertension): Chronic, stable. Continue home medications except as noted above. (7) HLD (hyperlipidemia): Chronic, stable. Continue atorvastatin per home regimen. DVT prophylaxis-heparin drip Full code Disposition-to PCU with plans to transfer to [facility] in AM. I spent a total of 75minutes coordinating, documenting, and providing care for this patient excluding time spent in the performance of separately billed services DO Rojelio Mcacllum Hospitalist Plan (Preceding documentation as per admitting provider.) 10/21/23, 610 a.m. Made aware by RN that transport for [facility] transfer on the way to hand picker patient at 7 AM. Total time to prepare this discharge summary was less than 10 minutes. Total Time Total Time Spent Total Time Spent (In Minutes): 10 mins Discharge Plan Discharge Items Patient Disposition: Transfer Acute Care Hospital Reason For Visit: NSTEMI, ACUTE RENAL FAILURE Discharge Diagnosis: NSTEMI Activity: As commented below Non-emergency contact: Primary Care Provider Follow-up/Referrals: Kerline Sotelo DO [Primary Care Provider] - Diet: Nothing by Mouth Addtl Attending Provider Instructions: N/A Stand-Alone Forms: My [facility] Skilled Items Patient informed of condition?: Yes DNR: No Discharge Level of Care: Other Communicable Disease: No Discharge Prognosis: Stable Lines: Peripheral IV Medications and DC Order Prescriptions: No Action spironolactone 25 mg tablet 12.5 mg PO QAM cholecalciferol (vitamin D3) [Vitamin D3] 25 mcg (1,000 unit) Capsule 100 mcg PO DAILY Rx Instructions: Per pt: "If I remember." terazosin 5 mg capsule 5 mg PO HS lisinopril 10 mg tablet 10 mg PO QAM atorvastatin 40 mg Tablet 40 mg PO QAM carvedilol [Coreg] 25 mg Tablet 37.5 mg PO BID clopidogrel [Plavix] 75 mg Tablet 75 mg PO QAM aspirin [Aspir-81] 81 mg Tablet,Delayed Release (Dr/Ec) 81 mg PO QAM amlodipine 10 mg Tablet 10 mg PO QAM hydralazine 50 mg Tablet 1.5 tabs PO TID insulin glargine [Lantus Solostar U-100 Insulin] 100 unit/mL (3 mL) Insulin Pen 34 unit SUBCUT QAM Rx Instructions: Patient states he is on a sliding scale. He takes between 25 and 44 units. furosemide 40 mg tablet 60 mg PO BID allopurinol 100 mg tablet 200 mg PO QAM isosorbide mononitrate 60 mg tablet extended release 24 hr 60 mg PO HS pantoprazole 40 mg tablet,delayed release (DR/EC) 40 mg PO QAM gabapentin 100 mg capsule 100 mg PO TID calcitriol 0.25 mcg capsule 0.25 mcg PO QAM Discharge Orders: Discharge Order (Routine); Ordered 10/21/23 Ordered By: Santhosh Abbasi Admission Data Admit Date/Time: 10/20/23 15:31 Attending Provider: Ines Gaffney Admit Provider: Ines Gaffney Primary Care Provider: Kerline Sotelo Other Providers: Erwin Bucio; Ines Gaffney
[2023-10-21 07:14] LABS: Estimated Average Glucose 192 mg/dl; Hemoglobin A1C 8.3 % (4.5-5.6)
[2023-10-21 07:22] LABS: ANTI-Xa, UFH(UnfractionatedHep 0.28 IU/ml (0.3-0.7)
[2023-10-21] MEDS ORDERED: ATORVASTATIN 40 MG TAB PO SCH (09:00)
[2023-10-21] MEDS ORDERED: CLOPIDOGREL BISULFATE 75 MG TAB PO SCH (09:00)
[2023-10-21] MEDS ORDERED: amLODIPine BESYLATE 5 MG TAB PO SCH (09:00)
[2023-10-21] MEDS ORDERED: allopurinoL 100 MG TAB PO SCH (09:00)
[2023-10-21] MEDS ORDERED: CALCITRIOL 0.25 MCG CAPSULE PO SCH (09:00)
[2023-10-21] MEDS ORDERED: ASPIRIN 81 MG ECTAB PO SCH (09:00)
[2023-10-21] MEDS ORDERED: PANTOprazole 40 MG TAB PO SCH (09:00)
--- OUTSIDE RECORDS SUMMARY | 2023-10-21 11:45 | External Medical Summary | Summary of Care ---
Author Name Unknown Organization [facility] Address [address] [place] [address] Phone [phone] Care Team Providers Care Film Coater Name Role Phone MarleneKerline chinchilla Ludy CASTELLANO Primary Care Provider + [phone] Reason for Visit * Reason Onset Date Comments Home Monitoring Alarm 10/12/2023 Encounter Details Date Type Department Care Team (Late st Contact Info) Description 10/12/2023 Home Monitoring Care Coordination [address] [place] [address] Brie Coelho LPN HTN, goal below 140/90* Allergies No known active allergiesdocumented as of this encounter (statuses as of 10/20/2023) Medications Medication Sig Dispensed Refills Start Date End Date Status ASPIRIN LOW DOSE 81 MG PO TABSIndications:Othe r specified prophylactic or treatment measure 1 TABLET DAILY 30 Tab 11 05/19/2013 Active Blood Glucose Monitoring Suppl (ONETOUCH VERIO) w/Device KITIndications:[place]win glucose Use up to 4 times [...] 75 MG Oral Tablet (pLAVix)Indications: 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) TAKE ONE TABLET BY MOUTH EVERY DAY IN THE MORNING 100 Tablet 1 09/30/2023 5 Active Carvedilol 25 MG Oral Tablet (Coreg)Indications:H ypertensive kidney disease with chronic kidney disease stage III (HCC) TAKE ONE AND ONE-HALF TABLETS BY MOUTH TWICE A DAY 270 Tablet 1 09/29/2023 5 Active documented as of this encounter (statuses as of 10/20/2023) Active Problems Problem Noted Date Diagnosed Date [...] Secondary hyperparathyroidism of renal origin Atherosclerosis of [place] ar teries of the extremities with ulceration [...] bilateral 05/28/2020 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 Blood Pressure Goal: 140/90 mmHg Type of Alert: Yellow Current Hypertension Medications: Spironolactone 25 mg 1/2 tab daily Amlodipine 10 mg daily Furosemide 40 mg - 1.5 tabs BID Terazosin 2 mg - 2 cap daily Increase Lisinopril 40 mg - 1 tab daily Carvedilol 25 mg 1.5 tabs BID Hydralazine 50 mg TID Experiencing symptoms related to elevated BP: No Systolic Diastolic HR 114 61 74 164 77 68 152 74 68 130 84 68 117 80 109 101 52 74 163 72 70 Systolic Diastolic HR Average 134 71 76 Hi 164 84 109 Lo 101 52 68 Range 63 32 41 BP Readings from Last 3 Encounters: 09/18/23 160/76 09/17/23 128/55 09/02/23 128/68 Pulse Readings from Last 3 Encounters: 09/18/23 76 09/17/23 60 09/02/23 76 Recent Labs Units 10/08/23 1417 09/16/23 1058 09/02/23 1445 SODIUM - [facility] mmol/L 136 137 136 POTASSIUM - [facility] mmol/L 4.8 4.7 5.2* CHLORIDE - [facility] mmol/L 100 101 102 CO2 - [facility] mmol/L 21* 22 22 CREATININE - [facility] mg/dL 4.0* 4.2* 3.5* BUN - [facility] mg/dL 69* 61* 59* ASSESSMENT & PLAN: Blood pressures are better on average. Still having some highs here and there, but unable to state why some are high and some lower. Having some pain in middle of chest when he lays down on back. Started in [place] and has continued since coming home. Only occurs when laying flat - starts right away for last 5-6 nights. Doesn't think he has any swelling in legs. Patient educated on the following: compliance to medication MEDICATION CHANGES: none Hypertension Medications: Spironolactone 25 mg 1/2 tab daily Amlodipine 10 mg daily Furosemide 40 mg - 1.5 tabs BID Terazosin 2 mg - 2 cap daily Lisinopril 40 mg - 1 tab daily Carvedilol 25 mg 1.5 tabs BID Hydralazine 50 mg TID HEALTH MAINTENANCE INTERVENTIONS: Labs: Ordered & Scheduled: BMP/CMP FOLLOW UP: Patient scheduled to have cath tomorrow but having significant chest pain. Sent to ED today per with 67F and Fiona Shen with Dr. Espinoza's team. They advised to keep his cath scheduled for tomorrow. [facility] Novak [facility] Clinical Pharmacist - Gathering Machine Setter Medication Therapy Management [facility] 10/20/2023, 10:44 AM Electronically signed by Angeles Veliz [facility] at 10/20/2023 11:46 AM EDT * Brie Coelho LPN - 10/12/2023 8:25 AM EST Miguel Aguiartaylor [phone] Miguel Aguiarfallonisidoro is currently participating in the CC365 Hypertension [...] pt today: Good morning, I am in [place]! I am feeling good, I have [...] Department Care Team (Latest Contact Info) Description 10/20/2023 4:40 PM EDT Office Visit [address] [place] [id number] Nathan Vora, [address] [place] [address] 10/21/2023 9:00 AM EDT Hospital Encounter [facility] Card[facility] Suite Waiting Unit, [address] [place] [address] Rao Espinoza MD [address] [place] [address] 10/21/2023 9:00 AM EDT - 10/21/2023 10:00 AM EDT Surgery [facility]S Waiting [facility] Card[facility] Suite Waiting Unit, H [address] [place] [address] Rao Espinoza MD [address] [place] [address] CORONARY ANGIOGRAPHY W/LEFT HEART CATH 10/21/2023 9:00 AM EDT Office Visit Cardiology [facility] [address] [place] [address] [facility] [address] [place] [address] 10/26/2023 1:00 PM EDT Office Visit [address] [place] [phone] Kerline Sotelo, DO [address] [place] [address] 10/27/2023 9:00 AM EDT Office Visit Podiatry [facility] [address] [place] [address] Angeles Arciniega, MER[facility] [address] [place] [address] 11/27/2023 8:30 AM EDT Office Visit Cardiology, [facility] [address] [place] [address] Odilia Arce CRNP [address] [place] [address] 03/02/2024 10:30 AM EDT Imaging Vascular Lab, [facility] [address] [place] [address] 03/02/2024 11:30 AM EDT Imaging Vascular Lab, [facility] [address] [place] [address] 03/09/2024 8:30 AM EDT Office Visit Vascular Surgery, [address] [place] [address] Erwin Olsen MD [address] [place] [address] Scheduled Procedures Name Priority Associated Diagnoses Date/Ti [...] 02/2024, 09/02/2023, Additional history exists Albumin/Creatinine Ratio 05/04/2024 023, [...] this encounter Medical Devices Implanted Type Area Cash Sales Audit Clerk Device Identifier Shelf Expiration Date Model / Serial / Lot Supera Peripheral Stent Implanted:Qty : 1 on 05/01/2014 at [place] [facility] Left: Popliteal Artery 11/08/2015 [id number] / / [id number] Description:[id number] Stent Complete Wy 7x150 - [id number] Implanted:Qty : 1 on 05/01/2014 at [place] [facility] Left: SFA [employer] : VASCULAR 02/07/2016 [id number] / / [id number] Graft Stent Viab 6oyc8du - [id number] Implanted:Qty : 1 on 05/01/2014 at [place] [facility] Left: SFA [employer] 03/09/2017 [id number] / / [id number] Stent Complete Sc 6x60 - [id number] Implanted:Qty : 1 on 07/23/2016 by Erwin Olsen MD at [place] [facility] Left: Popliteal Artery [employer] : VASCULAR 02/25/2018 [id number] / / [id number] Stent Viabahn Implanted:Qty : 1 on 01/12/2017 by Erwin Olsen MD at [place] [facility] Right: SFA 08/20/2018 [id number] / [id number] / Graft Stent Viab 0gre2ke - [id number] - [id number] Implanted:Qty : 1 on 01/12/2017 by Erwin Olsen MD at [place] [facility] Right: SFA [employer] 10/01/2019 [id number] / [id number] / Stent Peripheral 7 Diam 150x20 - [id number] Implanted:Qty : 1 on 09/01/2019 by Erwin Olsen MD at [place] [facility] Left: SFA [employer] : VASCULAR [id number] 01/12/2022 [id number] / / [id number] [facility] Cls Cadn Mynx6/7fr - [id number] Implanted:Qty : 1 on 02/21/2022 by Erwin Olsen MD at [place] [facility] CARDIOVASCULAR DYNAMICS [id number] 01/07/2023 [id number] / / [id number] documented as of this encounter Visit Diagnoses [...] the patient have Health Care Power of Auto Body Shop Manager? No Care Teams Film Coater Relationship Specialty Start Date End Date Kerline Sotelo DO [address] [place] [address] PCP - General Family Medicine 03/29/23 documented as of this encounter
--- NOTE | 2023-10-23 05:40 | Electrocardiogram Report ---
Test Reason : Blood Pressure : / mmHG Vent. Rate : 077 BPM Atrial Rate : 077 BPM P-R Int : 196 ms QRS Dur : 098 ms QT Int : 404 ms P-R-T Axes : 067 043 117 degrees QTc Int : 457 ms Sinus rhythm with occasional Premature ventricular complexes and Premature atrial complexes Abnormal ECG When compared with ECG of 05-AUG-2022 14:11, Premature ventricular complexes are now Present Premature atrial complexes are now Present ST now depressed in Lateral leads T wave inversion more evident in Lateral leads Confirmed by Eric Rosenthal ([id number]) on 10/23/2023 5:40:01 AM Referred By: Kerline Sotelo Confirmed By:Eric Rosenthal
--- NOTE | 2023-10-23 18:04 | Electrocardiogram Report ---
Test Reason : Blood Pressure : / mmHG Vent. Rate : 075 BPM Atrial Rate : 075 BPM P-R Int : 204 ms QRS Dur : 096 ms QT Int : 420 ms P-R-T Axes : 072 088 132 degrees QTc Int : 469 ms Sinus rhythm with frequent Premature atrial complexes Prolonged QT Abnormal ECG When compared with ECG of 20-OCT-2023 12:33, Premature ventricular complexes are no longer Present Confirmed by Eric Rosenthal ([id number]) on 10/23/2023 6:03:53 PM Referred By: Kerline Sotelo Confirmed By:Eric Rosenthal
== END 2023-10-21 08:14 | disposition short-term general hospital (02) | DRG 281 ==
LOC: ED 12:26 → SUATTDRO 15:31 → 2E 15:31